=== PATIENT | male | born 1965 | race Caucasian/White ===

== ENCOUNTER 2017-07-27 20:35 | Emergency (ER) | payer MEDICAID, SELFPAY ==
[2017-07-27 20:36] VITALS: BP 158/78; PULSE 76; RESP 14; TEMP 36.2; O2SAT 97; BMI 41.6
--- NOTE | 2017-07-27 22:12 | EKG12_ITS ---
Test Reason : SOB Blood Pressure : / mmHG Vent. Rate : 066 BPM Atrial Rate : 066 BPM P-R Int : 148 ms QRS Dur : 150 ms QT Int : 436 ms P-R-T Axes : 034 055 049 degrees QTc Int : 457 ms Normal sinus rhythm Right bundle branch block Abnormal ECG Confirmed by DUSTIN DEE, BRIDGET ([id number]), proposal editor ELIZABETH TONY ([id number]) on 07/29/2017 2:05:36 PM Referred By: ALLEN LAY Confirmed By:BRIDGET CHAN MD
--- NOTE | 2017-07-27 22:15 | ED.DCSUM_ITS ---
- ER Visit Summary Date of Service: 07/27/17 Chief Complaint: Weakness, shortness of breath History of Present Illness: The patient is a 51 M with multiple comorbidities including COPD not oxygen dependent, [id number]-ezocepgmb diabetes, and coronary vascular disease cough, shortness of breath, generalized malaise. The patient states symptoms began on for the past 2 weeks. He states initially, he started with some diffuse paresthesias. States was worse in his hands and on his head. He thought it might be a reaction to his Cymbalta which he stopped. He states it did seem to get better, but over the past week he has had increasing malaise. States he feels like he cannot catch his breath and has been having significant coughing with productive sputum. He denies any chest pain, but does admit to dyspnea when he walks. He has had prior cardiac catheterization with stenting. He denies any history of prior DE though. Physical Examination: Vital signs reviewed General: Well-nourished, well-developed Head: Normocephalic, atraumatic Eyes: Pupils equal and reactive, extraocular muscles intact Neck, supple, no lymphadenopathy Heart: Regular rate and rhythm Respiratory: No distress, wheezing with finished sounds Abdomen: Soft, nontender, nondistended, no peritoneal signs Back: Nontender Extremities: Nontender, no edema, no cords Skin: Normal color no rash Neuro: Alert and oriented, no focal or lateralizing deficits Test Results: [] Emergency Department Course and Treatment: The patient did have wheezing in all ordonez. I do feel that primary cause of his symptoms is respiratory. His EKG is unchanged. He has negative cardiac enzymes. His chest x-ray shows COPD without focal infiltrate. The patient was given aerosol breathing treatments and steroids. On reevaluation, his aeration is markedly improved. He is resting comfortably. Labs are relatively unremarkable. As the patient has had increasing dyspnea, productive sputum, change in sputum, and shortness of breath I do feel that treating him with antibiotics would be appropriate. The patient be kept on a prednisone burst. He is started on doxycycline. The patient is able to ambulate without tachypnea. At this time, I do feel that he is safe for discharge. He is counseled on concerning symptoms and reasons to return. Treatment Plan: [] Disposition: Discharge Impression: 1. Acute COPD exacerbation 2. Generalized weakness This note was generated with Dragon dictation software. It may contain incorrect words, spelling, and punctuation that were not noted in review of the chart prior to signing ED Disposition - Plan for ED Patient: Disposition: Home or Assisted Living Chief Complaint: Shortness of Breath Instructions: ED Upper Resp Infec Abx Tx Prescriptions: Prednisone [Deltasone] 60 mg PO DAILY #15 tab Doxycycline Monohydrate 100 mg PO BID #20 cap Referrals: Lupe Hastings, [facility] ATTENDANT-C [NON-STAFF] -
[2017-07-27 22:35] VITALS: PULSE 72; RESP 18; O2SAT 94
[2017-07-27] MEDS: MethylPREDNISolone 125 MG/2 ML Vial IV (22:40)
[2017-07-27 22:43] VITALS: PULSE 75; RESP 16
[2017-07-27] MEDS: Albuterol 2.5 MG/3 ML VIAL.NEB. INHALATION ×2 (22:43→23:00)
[2017-07-27] MEDS: Ipratropium/Albuterol Sulfate 3 ML AMPUL.NEB INHALATION (22:43)
[2017-07-27 23:00] VITALS: PULSE 77; RESP 20
--- NOTE | 2017-07-27 23:10 | RAD_ITS ---
STUDY: X-RAY CHEST REASON FOR EXAM: Male, 51 years old. Short of breath TECHNIQUE: PA and lateral COMPARISON: March 18, 2016 FINDINGS: Lungs are hyperinflated but clear.. There is no demonstrated pleural abnormality. Normal size heart. Normal mediastinum and darren. Normal visualized pulmonary arteries. Normal visualized aortic arch and descending thoracic aorta. Normal visualized thoracic spine. Normal visualized ribs, clavicles, and shoulders. There is no demonstrated abnormality of the visualized soft tissue structures of the upper abdomen. No significant changes since prior exam RAD/Chest PA and Lateral IMPRESSION: COPD. No acute disease Electronically Signed: Coleman Shankar MD at 23:31 EST , Service support ,
[2017-07-27 23:12] LABS: Hematocrit 41.4 % (40-54); Hemoglobin 14.2 g/dl (13.0-16.5); Mean Corp Hgb Conc 34.3 g/gl (32-36); Mean Corpuscular Volume 96.3 fL (80-94); RBC Distribution Width CV 13.5 % (11.6-14.6); RBC Distribution Width SD 47.3 fl (35.1-43.9); White Blood Count 7.9 K/mm3 (4.4-11.0)
[2017-07-27 23:13] LABS: Absolute Neutrophil Count 4.3 X10^3/uL (2.0-7.7); Basophil% 0.1 % (0-1); Lymphocyte # 2.94 X10^3/ul (4.0); Lymphocyte % 37.2 % (19-41); Mean Platelet Vol. 11.3 fl (6.2-12.0); Monocyte% 6.2 % (0-10); Neutrophil # 4.28 X10^3/uL (2.7-7.7); Neutrophil % 54.2 % (47-70); POSITIVE COUNT NO; POSITIVE DIFFERENTIAL NO; POSITIVE MORPHOLOGY NO; Platelet Count 235 K/mm3 (150-450)
[2017-07-27 23:14] LABS: Absolute Lymphocyte Count 2.94 X10^3/ul (0.83-4.51); Basophil# 0.01 X10^3/uL; Eosinophil# 0.16 X10^3/uL; Monocyte# 0.49 X10^3/uL
[2017-07-27 23:45] LABS: BNP,B-Type NATRIURETIC PEPTIDE 3.5 pg/mL (0-100)
[2017-07-28 00:01] LABS: Anion Gap 9 (5-15); BUN 15 mg/dL (7-18); BUN/Creat Ratio 10.9 RATIO (10-20); Calcium,Total 9.2 mg/dL (8.5-10.1); Chloride 108 mmol/L (98-107); Creatinine, Serum 1.37 mg/dL (0.70-1.30); EST Glomerular Filtration Rate 58 mL/min (>60); Est Glom Filt Rate - Afr Amer 71 mL/min (>60); Estimated Creatinine Clearance 64.51 ml/min; Glucose 114 mg/dL (74-106); Potassium 3.7 mmol/L (3.5-5.1); Sodium Level 144 mmol/L (136-145)
[2017-07-28] MEDS: Doxycycline 100 MG CAPSULE PO (00:35)
[2017-07-28 00:38] VITALS: BP 101/83; PULSE 70; RESP 17; O2SAT 95
--- NOTE | 2017-07-28 00:39 | ED.RN ---
IV DC'ED, CATHETER INTACT, SMALL GAUZE DRESSING PLACED. DISCHARGE INSTRUCTIONS GIVEN TO AND REVIEWED WITH PATIENT, PATIENT DENIES QUESTIONS OR CONCERNS AND VOICES UNDERSTANDING OF DISCHARGE INSTRUCTIONS. PT AMBULATES OUT OF ROOM WITHOUT DIFFICULTY.
== END 2017-07-28 00:40 | disposition home or self-care (01) ==
LOC: ED 07-28 00:35
PROVIDERS: Emergency Provider Emergency Medicine
DX: J44.1 Chronic obstructive pulmonary disease with (acute) exacerbation (principal); M62.81 Muscle weakness (generalized); I25.10 Atherosclerotic heart disease of native coronary artery without angina pectoris; Z72.0 Tobacco use
CPT/HCPCS: 36415; 71046; 80048; 83880; 84484; 85025; 93005; 94640; 96361; 96374; 99285; J7030; J7040

== ENCOUNTER → 2017-07-29 14:37 | Outpatient (CLI) | payer MEDICAID, SELFPAY | PROVIDERS: Visit Provider Internal Medicine Critical Care Medicine | DX: J44.9 Chronic obstructive pulmonary disease, unspecified (principal) | CPT/HCPCS: 87804 ==

== ENCOUNTER → 2017-08-14 13:52 | Outpatient (CLI) | payer MEDICAID, SELFPAY ==
[2017-08-14 14:21] LABS: Anion Gap 5 (5-15); BUN 12 mg/dL (7-18); BUN/Creat Ratio 10.9 RATIO (10-20); Calcium,Total 9.4 mg/dL (8.5-10.1); Chloride 106 mmol/L (98-107); EST Glomerular Filtration Rate 75 mL/min (>60); Est Glom Filt Rate - Afr Amer 91 mL/min (>60); Glucose 138 mg/dL (74-106); Potassium 4.3 mmol/L (3.5-5.1); Sodium Level 141 mmol/L (136-145)
[2017-08-14 14:31] LABS: BNP,B-Type NATRIURETIC PEPTIDE 8.9 pg/mL (0-100)
== END ==
PROVIDERS: Visit Provider Nurse Practitioner Acute Care
DX: R06.09 Other forms of dyspnea (principal)
CPT/HCPCS: 36415; 80048; 83880

== ENCOUNTER → 2017-08-15 12:18 | Outpatient (CLI) | payer MEDICAID, SELFPAY | PROVIDERS: Visit Provider Nurse Practitioner Acute Care | DX: J44.9 Chronic obstructive pulmonary disease, unspecified (principal) | CPT/HCPCS: 87070; 87077; 87186; 87205 ==

== ENCOUNTER → 2017-11-10 13:08 | Outpatient (CLI) | payer MEDICAID, SELFPAY ==
--- NOTE | 2017-11-11 15:15 | PFTCOMP ---
COMPLETE PULMONARY FUNCTION TEST INTERPRETATION Brief HPI: Patient is a 51 year old male, currently under the care of Deanna Schneider, who presents to [facility] for complete pulmonary function tests secondary to diagnosis of COPD. Respiratory therapist reports good effort and reproducible results. Patient did report feeling not well on the day of testing. Interpretation: Forced expiration spirometry shows a severe large airways obstructive ventilatory defect with an FEV1 of 45% predicted. There is no significant bronchodilator response by ATS criteria. Spirograms are of good quality and plateau slowly, indicating slowly emptying areas of the lungs. The respiratory flow volume loop shows decreased expiratory flow rates at all lung volumes consistent with airway obstruction. Lung volumes by body plethysmography show a normal total lung capacity at 7.08 L, 97% predicted. FRC and RV are elevated out of proportion. Lung volume measurements are consistent with air-trapping. Diffusion capacity by carbon monoxide is decreased at 71% predicted. The airway resistance is elevated. Compared to previous pulmonary function tests from 04/20/2017, there has been a significant worsening in FEV1 and air trapping. Impression: Irreversible severe large airways obstructive ventilatory defect with significant worsening in FEV1 and air trapping compared to previous study.
--- NOTE | 2017-11-11 16:09 | PFTCOMP_ITS ---
COMPLETE PULMONARY FUNCTION TEST INTERPRETATION Brief HPI: Patient is a 51 year old male, currently under the care of Deanna Schneider, who presents to [facility] for complete pulmonary function tests secondary to diagnosis of COPD. Respiratory therapist reports good effort and reproducible results. Patient did report feeling not well on the day of testing. Interpretation: Forced expiration spirometry shows a severe large airways obstructive ventilatory defect with an FEV1 of 45% predicted. There is no significant bronchodilator response by ATS criteria. Spirograms are of good quality and plateau slowly, indicating slowly emptying areas of the lungs. The respiratory flow volume loop shows decreased expiratory flow rates at all lung volumes consistent with airway obstruction. Lung volumes by body plethysmography show a normal total lung capacity at 7.08 L , 97% predicted. FRC and RV are elevated out of proportion. Lung volume measurements are consistent with air-trapping. Diffusion capacity by carbon monoxide is decreased at 71% predicted. The airway resistance is elevated. Compared to previous pulmonary function tests from 04/20/2017, there has been a significant worsening in FEV1 and air trapping. Impression: Irreversible severe large airways obstructive ventilatory defect with significant worsening in FEV1 and air trapping compared to previous study.
== END ==
PROVIDERS: Visit Provider Nurse Practitioner Acute Care
DX: J44.9 Chronic obstructive pulmonary disease, unspecified (principal)
CPT/HCPCS: 94060; 94726; 94729

== ENCOUNTER → 2017-11-12 12:16 | Outpatient (CLI) | payer MEDICAID, SELFPAY ==
[2017-11-12 12:50] VITALS: PULSE 64; PULSE 68; PULSE 74; PULSE 90; PULSE 91; PULSE 98; PULSE 99; O2SAT 93; O2SAT 94; O2SAT 95; O2SAT 96
--- NOTE | 2017-11-13 05:48 | PCM.PSN.6M ---
PSN 6 Minute Walk Test - 6 Minute Walk Test 6 Minute Walk Test: 6 Minute Walk Test PSN:6-Minute Walk Test Start: 11/12/17 12:49 Freq: Status: Active Protocol: RESP.6MINW Document 11/12/17 12:50 [facility] (Rec: 11/12/17 12:54 [facility] [id number]) 6 Minute Walk Test Date Performed 11/12/17 Time Performed 12:30 Height 6 ft Weight: 111.131 kg Weight in Pounds 245.[address]: Deanna Schneider FIO2 (% Oxygen) 21 Assistive device used: None Pre-test Oxygen Delivery Method Room Air Pulse Ox (%) 96 Pulse Rate (60-100 beats/min) 64 Dyspnea Lucy Scale (0-10) 3 Reported Symptoms Increased Work of Breathing 1st minute Oxygen Delivery Method Room Air Pulse Ox (%) 94 Pulse Rate (60-100 beats/min) 74 Dyspnea Lucy Scale (0-10) 3 Reported Symptoms Increased Work of Breathing 2nd minute Oxygen Delivery Method Room Air Pulse Ox (%) 93 Pulse Rate (60-100 beats/min) 90 Dyspnea Lucy Scale (0-10) 4 Reported Symptoms Increased Work of Breathing 3rd minute Oxygen Delivery Method Room Air Pulse Ox (%) 94 Pulse Rate (60-100 beats/min) 99 Dyspnea Lucy Scale (0-10) 4 Reported Symptoms Increased Work of Breathing 4th minute Oxygen Delivery Method Room Air Pulse Ox (%) 94 Pulse Rate (60-100 beats/min) 98 Dyspnea Lucy Scale (0-10) 4 Reported Symptoms Increased Work of Breathing 5th minute Oxygen Delivery Method Room Air Pulse Ox (%) 93 Pulse Rate (60-100 beats/min) 98 Dyspnea Lucy Scale (0-10) 4 Reported Symptoms Increased Work of Breathing 6th minute Oxygen Delivery Method Room Air Pulse Ox (%) 94 Pulse Rate (60-100 beats/min) 91 Dyspnea Lucy Scale (0-10) 4 Reported Symptoms Increased Work of Breathing Post-test Oxygen Delivery Method Room Air Pulse Ox (%) 95 Pulse Rate (60-100 beats/min) 68 Dyspnea Lucy Scale (0-10) 3 Reported Symptoms Increased Work of Breathing Full Laps Walked 18 Partial Lap, Number of Tiles Walked 32 Total Distance Walked (ft) 1094 - Interpretation Interpretation: Patient was able to ambulate 1094 feet over the course of 6 minutes on room air with no assistive devices or breaks. The patient experienced no significant tachycardia or desaturation during testing. These findings are consistent with a musculoskeletal limitation exercise tolerance. - Recommendations Recommendations: No supplemental oxygen is indicated at this time.
== END ==
PROVIDERS: Visit Provider Nurse Practitioner Acute Care
DX: J44.9 Chronic obstructive pulmonary disease, unspecified (principal)
CPT/HCPCS: 94618

== ENCOUNTER → 2018-08-04 12:10 | Outpatient (CLI) | payer MEDICAID, SELFPAY ==
[2018-05-10 12:21] VITALS: BMI 41.9
== END ==
PROVIDERS: Referring Provider Internal Medicine Critical Care Medicine; Visit Provider Internal Medicine Critical Care Medicine
DX: J44.9 Chronic obstructive pulmonary disease, unspecified (principal)
CPT/HCPCS: 87632

== ENCOUNTER → 2018-08-05 12:10 | Outpatient (CLI) | payer MEDICAID, SELFPAY ==
[2018-05-10 12:21] VITALS: BMI 41.9
== END ==
PROVIDERS: Referring Provider Nurse Practitioner Acute Care; Visit Provider Nurse Practitioner Acute Care
DX: J44.9 Chronic obstructive pulmonary disease, unspecified (principal)
CPT/HCPCS: 87070; 87077; 87186; 87205

== ENCOUNTER → 2018-11-02 | Outpatient (CLI) | payer MEDICAID, SELFPAY ==
[2018-05-10 12:21] VITALS: BMI 41.9
--- NOTE | 2018-11-03 08:15 | PFT ---
INTRODUCTION: The patient is a 52-year-old male that presents for pulmonary function studies secondary to a diagnosis of COPD. Respiratory therapy reports good patient effort. Bronchodilators were used during testing. INTERPRETATION: Forced expiration spirometry demonstrates the presence of a severe large airways obstructive ventilatory defect. There was no significant response to aerosolized bronchodilators. Spirograms are of good quality and do not plateau indicating slow emptying of the lungs. Body plethysmography was performed and revealed an elevated RV to 128% of predicted, indicative of mild air trapping. Diffusing capacity by single breath CO is reduced at 61% of predicted. IMPRESSION: Irreversible severe large airways obstructive ventilatory defect with associated mild air trapping and reduction in diffusing capacity.
== END | disposition home or self-care (01) ==
LOC: PSN 12:15
PROVIDERS: Referring Provider Nurse Practitioner Acute Care; Visit Provider Nurse Practitioner Acute Care
DX: J44.9 Chronic obstructive pulmonary disease, unspecified (principal)
CPT/HCPCS: 94060; 94726; 94729

== ENCOUNTER → 2018-11-04 | Outpatient (CLI) | payer MEDICAID, SELFPAY ==
[2018-05-10 12:21] VITALS: BMI 41.9
[2018-11-04 12:45] VITALS: PULSE 77; PULSE 81; PULSE 94; PULSE 95; PULSE 96; O2SAT 92; O2SAT 93; O2SAT 94; O2SAT 95
--- NOTE | 2018-11-05 06:41 | PCM.PSN.6M ---
PSN 6 Minute Walk Test - 6 Minute Walk Test 6 Minute Walk Test: 6 Minute Walk Test PSN:6-Minute Walk Test Start: 11/04/18 12:45 Freq: Status: Active Protocol: RESP.6MINW Document 11/04/18 12:45 SMB (Rec: 11/04/18 12:48 SMB [id number]) 6 Minute Walk Test Date Performed 11/04/18 Time Performed 12:31 Height 6 ft Weight: 285 lb Weight in Pounds 285.[address]: Deanna Schneider Assistive device used: None Pre-test Oxygen Delivery Method Room Air Pulse Ox (%) 94 Pulse Rate (60-100 beats/min) 77 Dyspnea Lucy Scale (0-10) 2 Exertion Lucy Scale (6-20) 11 1st minute Oxygen Delivery Method Room Air Pulse Ox (%) 92 Pulse Rate (60-100 beats/min) 95 2nd minute Oxygen Delivery Method Room Air Pulse Ox (%) 93 Pulse Rate (60-100 beats/min) 96 3rd minute Oxygen Delivery Method Room Air Pulse Ox (%) 92 Pulse Rate (60-100 beats/min) 96 4th minute Oxygen Delivery Method Room Air Pulse Ox (%) 93 Pulse Rate (60-100 beats/min) 94 5th minute Oxygen Delivery Method Room Air Pulse Ox (%) 92 Pulse Rate (60-100 beats/min) 96 6th minute Oxygen Delivery Method Room Air Pulse Ox (%) 93 Pulse Rate (60-100 beats/min) 95 Post-test Oxygen Delivery Method Room Air Pulse Ox (%) 95 Pulse Rate (60-100 beats/min) 81 Dyspnea Lucy Scale (0-10) 3 Exertion Lucy Scale (6-20) 12 Full Laps Walked 19 Partial Lap, Number of Tiles Walked 6 Total Distance Walked (ft) 1127 - Interpretation Interpretation: The patient ambulated 1127 feet over the course of 6 minutes beginning on room air without assistive devices or breaks. Pretesting oxygen saturation was noted to be 94% on room air. With ambulation, the mariam oxygen saturation was 92%. There was no significant exertional oxygen desaturation. - Recommendations Recommendations: There is no indication for the use of supplemental oxygen at this time.
== END | disposition home or self-care (01) ==
LOC: PSN 12:04
PROVIDERS: Referring Provider Nurse Practitioner Acute Care; Visit Provider Nurse Practitioner Acute Care
DX: J44.9 Chronic obstructive pulmonary disease, unspecified (principal)
CPT/HCPCS: 94618

== ENCOUNTER → 2019-08-01 | Outpatient (CLI) | payer MEDICAID, SELFPAY ==
[2019-05-03 07:45] VITALS: BMI 38.6
--- NOTE | 2019-08-01 09:05 | US_ITS ---
STUDY: ABDOMINAL ULTRASOUND - RIGHT UPPER QUADRANT REASON FOR VISIT: Male, 53 years old UMBILICAL HERNIA - S/P PREVIOUS REPAIR TECHNIQUE: Ultrasound evaluation of the mid abdomen was performed with real-time and static salazar-scale imaging. TECHNICAL QUALITY: Adequate. COMPARISON: None. FINDINGS: There is evidence of a midline fat-containing hernia just superior to the umbilicus measuring 2.6 cm x 2.6 cm x 0.7 cm.. US/Abdomen Limited IMPRESSION: Findings suggestive of a midline fat containing hernia just superior to the umbilicus. Electronically Signed: Anton Felix, at 10:12 EST , Service support ,
== END | disposition home or self-care (01) ==
LOC: US 09:04
PROVIDERS: PCP Nurse Practitioner Family
DX: K45.8 Other specified abdominal hernia without obstruction or gangrene (principal)
CPT/HCPCS: 76705

== ENCOUNTER → 2019-08-02 | Outpatient (CLI) | payer MEDICAID, SELFPAY ==
[2019-05-03 07:45] VITALS: BMI 38.6
--- NOTE | 2019-08-02 15:35 | PFTCOMP ---
COMPLETE PULMONARY FUNCTION TEST INTERPRETATION Brief HPI: Patient is a 53 year old male, currently under the care of myself, who presents to [facility] for complete pulmonary function tests secondary to diagnosis of COPD. Respiratory therapist reports good effort and reproducible results. Interpretation: Forced expiration spirometry shows a moderately severe large airways obstructive ventilatory defect with an FEV1 of 51% predicted. There is no significant bronchodilator response by strict ATS criteria. Spirograms are of good quality and plateau slowly, indicating slowly emptying areas of the lungs. The respiratory flow volume loop shows decreased expiratory flow rates at all lung volumes consistent with airway obstruction. Lung volumes by body plethysmography show a normal total lung capacity at 6.55 L, 100% predicted. FRC and RV are elevated out of proportion. Lung volume measurements are consistent with air-trapping. Diffusion capacity by carbon monoxide is at the lower limit of normal at 76% predicted. The airway resistance is normal. Compared to previous pulmonary function tests from 11/02/2018, there is been a significant improvement in DLCO by 20%. Impression: Irreversible moderately severe large airways obstructive ventilatory defect resulting in air trapping, with some improvement compared to previous testing.
== END | disposition home or self-care (01) ==
LOC: PSN 13:01
PROVIDERS: Referring Provider Nurse Practitioner Acute Care; Visit Provider Nurse Practitioner Acute Care
DX: J44.9 Chronic obstructive pulmonary disease, unspecified (principal)
CPT/HCPCS: 94060; 94726; 94729

== ENCOUNTER → 2019-08-04 | Outpatient (CLI) | payer MEDICAID, SELFPAY ==
[2019-05-03 07:45] VITALS: BMI 38.6
[2019-08-04 12:42] VITALS: PULSE 83; PULSE 91; PULSE 93; PULSE 94; PULSE 95; PULSE 97; O2SAT 91; O2SAT 92; O2SAT 93; O2SAT 94
--- NOTE | 2019-08-04 15:31 | PCM.PSN.6M ---
PSN 6 Minute Walk Test - 6 Minute Walk Test 6 Minute Walk Test: 6 Minute Walk Test PSN:6-Minute Walk Test Start: 08/04/19 12:41 Freq: Status: Active Protocol: RESP.6MINW Document 08/04/19 12:42 SMB (Rec: 08/04/19 12:45 SMB [id number]) 6 Minute Walk Test Date Performed 08/04/19 Time Performed 12:26 Height 5 ft 10 in Weight: 130.181 kg Weight in Pounds 287.[address]: Deanna Schneider Assistive device used: None Pre-test Oxygen Delivery Method Room Air Pulse Ox (%) 94 Pulse Rate (60-100 beats/min) 97 Dyspnea Lucy Scale (0-10) 0.5 Exertion Lucy Scale (6-20) 11 1st minute Oxygen Delivery Method Room Air Pulse Ox (%) 91 Pulse Rate (60-100 beats/min) 91 2nd minute Oxygen Delivery Method Room Air Pulse Ox (%) 92 Pulse Rate (60-100 beats/min) 95 3rd minute Oxygen Delivery Method Room Air Pulse Ox (%) 92 Pulse Rate (60-100 beats/min) 97 4th minute Oxygen Delivery Method Room Air Pulse Ox (%) 91 Pulse Rate (60-100 beats/min) 94 5th minute Oxygen Delivery Method Room Air Pulse Ox (%) 92 Pulse Rate (60-100 beats/min) 93 6th minute Oxygen Delivery Method Room Air Pulse Ox (%) 93 Pulse Rate (60-100 beats/min) 97 Post-test Oxygen Delivery Method Room Air Pulse Ox (%) 94 Pulse Rate (60-100 beats/min) 83 Dyspnea Lucy Scale (0-10) 3 Exertion Lucy Scale (6-20) 14 Full Laps Walked 18 Partial Lap, Number of Tiles Walked 11 Total Distance Walked (ft) 1073 - Interpretation Interpretation: The patient was able to ambulate 1073 feet over the course of 6 minutes on room air with no assistive devices or breaks. The patient did experience significant desaturation from a baseline of 94% to as low as 91% with no significant tachycardia. These findings are consistent with a respiratory limitation to exercise tolerance. - Recommendations Recommendations: No supplemental oxygen is indicated at this time. However, patient will need to be followed closely given level of desaturation.
== END | disposition home or self-care (01) ==
LOC: PSN 12:05
PROVIDERS: Referring Provider Nurse Practitioner Acute Care; Visit Provider Nurse Practitioner Acute Care
DX: J44.9 Chronic obstructive pulmonary disease, unspecified (principal)
CPT/HCPCS: 94618

== ENCOUNTER → 2020-02-22 12:10 | Outpatient (CLI) | payer MEDICAID, SELFPAY ==
[2019-08-11 12:58] VITALS: BMI 41.3
[2020-02-22 13:23] LABS: Absolute Lymphocyte Count 2.26 X10^3/uL (0.83-4.51); Absolute Neutrophil Count 3.3 X10^3/uL (2.0-7.7); Basophil# 0.03 X10^3/uL; Basophil% 0.5 % (0-1); Eosinophil# 0.12 X10^3/uL; Eosinophils% 1.9 % (0-5); Hematocrit 43.1 % (40-54); Hemoglobin 14.6 g/dL (13.0-16.5); Lymphocyte # 2.26 X10^3/ul (4.0); Lymphocyte % 36.2 % (19-41); Mean Corp Hgb Conc 33.9 g/dL (32-36); Mean Corpuscular Hgb 33.4 pg (27.0-32.0); Mean Corpuscular Volume 98.6 fL (80-94); Mean Platelet Vol. 10.7 fl (6.2-12.0); NRBC Flagged by Analyzer 0 % (0-5); Neutrophil # 3.31 X10^3/uL (2.7-7.7); Neutrophil % 53.1 % (47-70); Platelet Count 220 K/mm3 (150-450); RBC Distribution Width CV 12.8 % (11.6-14.6); RBC Distribution Width SD 46.2 fl (35.1-43.9); Red Blood Count 4.37 M/mm3 (4.6-6.2); White Blood Count 6.2 K/mm3 (4.4-11.0)
[2020-02-22 13:52] LABS: Vitamin D,25 Hydroxy 73.9 ng/mL
[2020-02-22 14:03] LABS: ALB/GLOB Ratio 1.1 RATIO (0.9-2.4); AST(SGOT) 34 U/L (15-37); Alanine Aminotransfer ALT/SGPT 56 U/L (16-61); Albumin, Serum 3.8 g/dL (3.2-5.0); Alkaline Phosphatase 107 U/L (45-117); Anion Gap 6 (5-15); BUN 12 mg/dL (7-18); BUN/Creat Ratio 14.6 RATIO (10-20); Chloride 105 mmol/L (98-107); Cholesterol 147 mg/dL (200); Creatinine, Serum 0.82 mg/dL (0.70-1.30); EST Glomerular Filtration Rate 104 mL/min (>60); Est Glom Filt Rate - Afr Amer 126 mL/min (>60); Globulin 3.5 g/dL (2.2-4.2); Glucose 107 mg/dL (74-106); High Density Lipoprotein 33 mg/dL; Potassium 3.8 mmol/L (3.5-5.1); Protein, Total 7.3 g/dL (6.4-8.2); Sodium Level 138 mmol/L (136-145); T4 Free Direct 1.08 ng/dL (0.76-1.46); Thyroid Stim Hormone (TSH) 1.38 uIU/mL (0.358-3.74); Triglycerides 257 mg/dL; Very Low Density Lipoprotein 51 mg/dL (5-40)
== END ==
DX: K21.9 Gastro-esophageal reflux disease without esophagitis (principal); E11.65 Type 2 diabetes mellitus with hyperglycemia; E78.5 Hyperlipidemia, unspecified; E03.9 Hypothyroidism, unspecified; E55.9 Vitamin D deficiency, unspecified
CPT/HCPCS: 36415; 80053; 80061; 82306; 83036; 84439; 84443; 85025

== ENCOUNTER → 2020-09-27 12:40 | Outpatient (CLI) | payer MEDICAID, SELFPAY ==
[2019-08-11 12:58] VITALS: BMI 41.3
--- NOTE | 2020-09-27 16:55 | PFTCOMP ---
COMPLETE PULMONARY FUNCTION TEST INTERPRETATION Brief HPI: Patient is a 54 year old male, currently under the care of Deanna Schneider, who presents to [facility] for complete pulmonary function tests secondary to diagnosis of COPD. Respiratory therapist reports good effort and reproducible results. Interpretation: Forced expiration spirometry shows a moderately severe large airways obstructive ventilatory defect with an FEV1 of 51% predicted. There is no significant bronchodilator response by strict ATS criteria. Spirograms are of good quality and plateau slowly, indicating slowly emptying areas of the lungs. The respiratory flow volume loop shows decreased expiratory flow rates at all lung volumes consistent with airway obstruction. Lung volumes by body plethysmography show a normal total lung capacity at 6.97 L, 107% predicted. FRC and RV are elevated out of proportion. Lung volume measurements are consistent with air-trapping. Diffusion capacity by carbon monoxide is at the lower limit of normal at 75% predicted. The airway resistance is normal. Compared to previous pulmonary function tests from 08/02/2019, there has been no significant change. Impression: Irreversible moderately severe large airways obstructive ventilatory defect with relatively preserved diffusion capacity, resulting in air trapping, but no significant change compared to 2019.
== END ==
PROVIDERS: Referring Provider Nurse Practitioner Acute Care; Visit Provider Nurse Practitioner Acute Care
DX: J44.9 Chronic obstructive pulmonary disease, unspecified (principal)
CPT/HCPCS: 94060; 94726; 94729

== ENCOUNTER → 2020-10-02 12:43 | Outpatient (CLI) | payer MEDICAID, SELFPAY ==
[2019-08-11 12:58] VITALS: BMI 41.3
[2020-10-02 13:15] VITALS: PULSE 101; PULSE 106; PULSE 74; PULSE 88; PULSE 89; PULSE 93; PULSE 97; O2SAT 91; O2SAT 92; O2SAT 93; O2SAT 94
--- NOTE | 2020-10-04 09:42 | PCM.PSN.6M ---
PSN 6 Minute Walk Test 6 Minute Walk Test 6 Minute Walk Test: 6 Minute Walk Test PSN:6-Minute Walk Test Start: 10/02/20 13:41 Freq: Status: Active Protocol: RESP.6MINW Document 10/02/20 13:15 EW (Rec: 10/02/20 13:49 EW [id number]) 6 Minute Walk Test Date Performed 10/02/20 Time Performed 13:40 Height 5 ft 9 in Weight: 275 lb Weight in Pounds 275.[address]: Deanna Schneider SERVICE DELIVERY CONSULTANT Assistive device used: None Pre-test Oxygen Delivery Method Room Air Pulse Ox (%) 94 Pulse Rate (60-100 beats/min) 74 Dyspnea Lucy Scale (0-10) 3 Exertion Lucy Scale (6-20) 11 1st minute Oxygen Delivery Method Room Air Pulse Ox (%) 92 Pulse Rate (60-100 beats/min) 89 2nd minute Oxygen Delivery Method Room Air Pulse Ox (%) 91 Pulse Rate (60-100 beats/min) 106 H 3rd minute Oxygen Delivery Method Room Air Pulse Ox (%) 91 Pulse Rate (60-100 beats/min) 89 4th minute Oxygen Delivery Method Room Air Pulse Ox (%) 91 Pulse Rate (60-100 beats/min) 97 5th minute Oxygen Delivery Method Room Air Pulse Ox (%) 91 Pulse Rate (60-100 beats/min) 101 H 6th minute Oxygen Delivery Method Room Air Pulse Ox (%) 92 Pulse Rate (60-100 beats/min) 93 Post-test Oxygen Delivery Method Room Air Pulse Ox (%) 93 Pulse Rate (60-100 beats/min) 88 Dyspnea Lucy Scale (0-10) 3 Exertion Lucy Scale (6-20) 14 Full Laps Walked 16 Partial Lap, Number of Tiles Walked 0 Total Distance Walked (ft) 944 Interpretation Interpretation: The patient ambulated 944 feet over the course of 6 minutes beginning on room air without assistive devices or breaks. Pretesting oxygen saturation was noted to be 94% on room air. With ambulation, the mariam oxygen saturation was 91%. There was no significant exertional oxygen desaturation. Recommendations Recommendations: There is no indication for the use of supplemental oxygen at this time.
== END ==
PROVIDERS: Referring Provider Nurse Practitioner Acute Care; Visit Provider Nurse Practitioner Acute Care
DX: J44.9 Chronic obstructive pulmonary disease, unspecified (principal)
CPT/HCPCS: 94618

== ENCOUNTER → 2020-12-24 12:04 | Outpatient (CLI) | payer MEDICAID, SELFPAY ==
[2020-11-29 13:40] VITALS: BMI 40.2
[2020-12-24 12:40] LABS: Absolute Lymphocyte Count 1.95 X10^3/uL (0.83-4.51); Absolute Neutrophil Count 3.7 X10^3/uL (2.0-7.7); Basophil# 0.02 X10^3/uL; Basophil% 0.3 % (0-1); Eosinophils% 1.6 % (0-5); Hematocrit 46.3 % (40-54); Hemoglobin 16.1 g/dL (13.0-16.5); Lymphocyte # 1.95 X10^3/ul (0.83-4.51); Lymphocyte % 31.1 % (19-41); Mean Corp Hgb Conc 34.8 g/dL (32-36); Mean Corpuscular Hgb 33.4 pg (27.0-32.0); Mean Corpuscular Volume 96.1 fL (80-94); Mean Platelet Vol. 10.7 fl (6.2-12.0); NRBC Flagged by Analyzer 0 % (0-5); Neutrophil # 3.68 X10^3/uL (2.7-7.7); Neutrophil % 58.7 % (47-70); Platelet Count 208 K/mm3 (150-450); RBC Distribution Width CV 12.9 % (11.6-14.6); RBC Distribution Width SD 46.2 fl (35.1-43.9); Red Blood Count 4.82 M/mm3 (4.6-6.2); White Blood Count 6.3 K/mm3 (4.4-11.0)
[2020-12-24 13:12] LABS: Vitamin D,25 Hydroxy 65.2 ng/mL
[2020-12-24 13:23] LABS: AST(SGOT) 35 U/L (15-37); Alanine Aminotransfer ALT/SGPT 55 U/L (16-61); Albumin, Serum 3.8 g/dL (3.2-5.0); Alkaline Phosphatase 107 U/L (45-117); Anion Gap 7 (5-15); BUN 12 mg/dL (7-18); BUN/Creat Ratio 13.2 RATIO (10-20); Calcium,Total 8.5 mg/dL (8.5-10.1); Chloride 105 mmol/L (98-107); Cholesterol 156 mg/dL (200); Creatinine, Serum 0.91 mg/dL (0.70-1.30); EST Glomerular Filtration Rate 92 mL/min (>60); Est Glom Filt Rate - Afr Amer 112 mL/min (>60); Globulin 3.8 g/dL (2.2-4.2); Glucose 126 mg/dL (74-106); High Density Lipoprotein 35 mg/dL; PSA,Total - Annual Screen 0.31 ng/mL (0.00-4.00); Potassium 3.8 mmol/L (3.5-5.1); Protein, Total 7.6 g/dL (6.4-8.2); Sodium Level 137 mmol/L (136-145); Thyroid Stim Hormone (TSH) 2.58 uIU/mL (0.358-3.74); Triglycerides 277 mg/dL; Very Low Density Lipoprotein 55 mg/dL (5-40)
[2020-12-24 13:25] LABS: Microalbumin,Random Urine 7.8 mg/L (NO RANGE EST.)
== END ==
PROVIDERS: Internal Medicine Cardiovascular Disease; PCP Nurse Practitioner Adult Health; Referring Provider Nurse Practitioner Adult Health; Visit Provider Nurse Practitioner Adult Health
DX: E11.65 Type 2 diabetes mellitus with hyperglycemia (principal); E03.9 Hypothyroidism, unspecified; E78.5 Hyperlipidemia, unspecified; E78.00 Pure hypercholesterolemia, unspecified; I10 Essential (primary) hypertension; I25.10 Atherosclerotic heart disease of native coronary artery without angina pectoris; R06.09 Other forms of dyspnea; R07.2 Precordial pain; Z95.5 Presence of coronary angioplasty implant and graft; Z12.5 Encounter for screening for malignant neoplasm of prostate; Z12.11 Encounter for screening for malignant neoplasm of colon
CPT/HCPCS: 80053; 80061; 82043; 82306; 84153; 84443; 85025; G0103

== ENCOUNTER → 2021-03-29 07:18 | Outpatient (CLI) | payer MEDICAID, SELFPAY ==
[2021-03-29 08:24] LABS: Cholesterol 187 mg/dL (200); High Density Lipoprotein 30 mg/dL; Triglycerides 464 mg/dL
== END ==
DX: E78.5 Hyperlipidemia, unspecified (principal)
CPT/HCPCS: 36415; 80061

== ENCOUNTER → 2021-04-01 | Outpatient (CLI) | payer MEDICAID, SELFPAY | END | disposition home or self-care (01) | LOC: LABSPEC 12:43 | PROVIDERS: Referring Provider Nurse Practitioner Adult Health; Visit Provider Nurse Practitioner Adult Health | DX: Z12.11 Encounter for screening for malignant neoplasm of colon (principal) | CPT/HCPCS: 82274 ==

== ENCOUNTER 2021-07-16 07:08 | Outpatient (CLI) | payer MEDICAID, SELFPAY ==
[2021-07-16 07:32] LABS: Absolute Lymphocyte Count 2.15 X10^3/uL (0.83-4.51); Absolute Neutrophil Count 3.5 X10^3/uL (2.0-7.7); Basophil# 0.03 X10^3/uL; Basophil% 0.5 % (0-1); Eosinophils% 1.6 % (0-5); Hematocrit 47.8 % (40-54); Hemoglobin 16.3 g/dL (13.0-16.5); Lymphocyte # 2.15 X10^3/ul (0.83-4.51); Lymphocyte % 33.9 % (19-41); Mean Corp Hgb Conc 34.1 g/dL (32-36); Mean Corpuscular Hgb 32.9 pg (27.0-32.0); Mean Corpuscular Volume 96.6 fL (80-94); Mean Platelet Vol. 10.6 fl (6.2-12.0); Monocyte# 0.51 X10^3/uL; NRBC Flagged by Analyzer 0 % (0-5); Neutrophil # 3.54 X10^3/uL (2.7-7.7); Neutrophil % 55.7 % (47-70); Platelet Count 203 K/mm3 (150-450); RBC Distribution Width SD 46.2 fl (35.1-43.9); Red Blood Count 4.95 M/mm3 (4.6-6.2); White Blood Count 6.4 K/mm3 (4.4-11.0)
[2021-07-16 08:03] LABS: ALB/GLOB Ratio 0.9 RATIO (0.9-2.4); AST(SGOT) 32 U/L (15-37); Alanine Aminotransfer ALT/SGPT 50 U/L (16-61); Albumin, Serum 3.6 g/dL (3.2-5.0); Alkaline Phosphatase 110 U/L (45-117); Anion Gap 7 (5-15); BUN 10 mg/dL (7-18); BUN/Creat Ratio 10.3 RATIO (10-20); Bilirubin, Direct 0.11 mg/dL (0.00-0.30); Calcium,Total 8.9 mg/dL (8.5-10.1); Chloride 104 mmol/L (98-107); Cholesterol 146 mg/dL (200); Creatinine, Serum 0.98 mg/dL (0.70-1.30); EST Glomerular Filtration Rate 85 mL/min (>60); Est Glom Filt Rate - Afr Amer 103 mL/min (>60); Globulin 3.8 g/dL (2.2-4.2); Glucose 142 mg/dL (74-106); High Density Lipoprotein 31 mg/dL; Potassium 3.8 mmol/L (3.5-5.1); Protein, Total 7.4 g/dL (6.4-8.2); Sodium Level 139 mmol/L (136-145); Thyroid Stim Hormone (TSH) 1.78 uIU/mL (0.358-3.74); Triglycerides 330 mg/dL; Very Low Density Lipoprotein 66 mg/dL (5-40)
[2021-07-16 08:25] LABS: BNP,B-Type NATRIURETIC PEPTIDE 6.8 pg/mL (0-100)
== END 2021-07-16 23:59 | disposition home or self-care (01) ==
LOC: LAB 07:11
PROVIDERS: Internal Medicine Cardiovascular Disease; Referring Provider Nurse Practitioner Adult Health; Visit Provider Nurse Practitioner Adult Health
DX: R06.02 Shortness of breath (principal); E78.5 Hyperlipidemia, unspecified
CPT/HCPCS: 36415; 80053; 80061; 82248; 83880; 84443; 85025

== ENCOUNTER → 2021-10-02 | Outpatient (CLI) | payer MEDICAID, SELFPAY ==
--- NOTE | 2021-10-02 08:20 | RAD_ITS ---
STUDY: X-RAY - LEFT KNEE REASON FOR EXAM: Male, 55 years old. PAIN TECHNIQUE: 4 view(s) of the knee. COMPARISON: None. FINDINGS: Normal visualized distal femur. Normal visualized proximal tibia and fibula. Normal proximal tibiofibular articulation. Normal medial femorotibial compartment. Normal lateral femorotibial compartment. Normal patellofemoral articulation. There is a moderate-sized degenerative osteophyte at the lateral margin of the articular surface of the patella. The soft tissue structures are unremarkable. RAD/Knee 4 or More Views IMPRESSION: No evidence of acute fracture. Degenerative change of the knee. Electronically Signed: Beto Schneider MD at 23:51 EDT ,
--- NOTE | 2021-10-02 08:30 | RAD_ITS ---
STUDY: XR Knee Complete 4 Views or More 10/02/2021 5:07 PM REASON FOR EXAM: Male, 55 years old. PAIN IN KNEE TECHNIQUE: XR Knee Complete 4 Views or More RIGHT COMPARISON: None FINDINGS: Normal visualized distal femur. Normal visualized proximal tibia and fibula. Normal proximal tibiofibular articulation. Normal medial femorotibial compartment. Normal lateral femorotibial compartment. There is mild degenerative arthrosis of the patellofemoral articulation. There is a soft tissue prominence in the suprapatellar region suggesting a small volume joint effusion. Suprapatellar calcification. The soft tissue structures are unremarkable. 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 There is a soft tissue prominence in the suprapatellar region suggesting a small volume joint effusion. Electronically Signed: Zion Hammond MD at 17:09 EDT ,
[2021-10-02 08:46] LABS: AST(SGOT) 35 U/L (15-37); Alanine Aminotransfer ALT/SGPT 56 U/L (16-61); Albumin, Serum 3.6 g/dL (3.2-5.0); Alkaline Phosphatase 113 U/L (45-117); Bilirubin, Direct 0.16 mg/dL (0.00-0.30); Cholesterol 145 mg/dL (200); Globulin 3.7 g/dL (2.2-4.2); High Density Lipoprotein 34 mg/dL; Lipase 248 U/L (73-393); Protein, Total 7.3 g/dL (6.4-8.2); Triglycerides 320 mg/dL; Very Low Density Lipoprotein 64 mg/dL (5-40)
== END | disposition home or self-care (01) ==
PROVIDERS: Internal Medicine Cardiovascular Disease; Referring Provider Nurse Practitioner Adult Health; Visit Provider Nurse Practitioner Adult Health
DX: E11.42 Type 2 diabetes mellitus with diabetic polyneuropathy (principal); R10.32 Left lower quadrant pain; R10.31 Right lower quadrant pain; Z12.5 Encounter for screening for malignant neoplasm of prostate; M25.561 Pain in right knee
CPT/HCPCS: 36415; 73564; 80061; 80076; 83690

== ENCOUNTER 2022-02-03 12:27 | Emergency (ER) | payer MEDICAID, SELFPAY ==
[2022-02-03 12:28] VITALS: BP 146/88; PULSE 76; RESP 15; TEMP 36.4; O2SAT 98; BMI 41.0
[2022-02-03 12:41] VITALS: BP 146/88; PULSE 76; RESP 15; TEMP 36.4; O2SAT 98
--- NOTE | 2022-02-03 12:52 | VDLE_ITS ---
Reason For Study: Pain RIGHT GSV is normal. CFV is compressible, spontaneous, phasic, competent and demonstrates normal augmentation. FV is compressible, spontaneous, phasic, competent and demonstrates normal augmentation. POP V is compressible, spontaneous, phasic, competent and demonstrates normal augmentation. T/P Trunk is compressible. PTV is compressible. RT PerV is compressible. Procedure This is a venous duplex using B-mode, color flow and spectral Doppler. Exam performed portable in ED. A preliminary report was called and/or faxed to Dr. Lance. VL/Venous Duplex US, Unilateral Interpretation Summary There is no evidence of right lower extremity deep vein thrombosis. Right great saphenous vein appears patent and compressible segmentally. Ordering Physician: Aidan Lance Referring Physician: [facility] Performed By: Dorcas Pino, TEGAN, RVT
--- NOTE | 2022-02-03 12:52 | EKG12_ITS ---
Test Reason : CHEST TIGHTNESS Blood Pressure : / mmHG Vent. Rate : 067 BPM Atrial Rate : 067 BPM P-R Int : 178 ms QRS Dur : 150 ms QT Int : 420 ms P-R-T Axes : 069 049 047 degrees QTc Int : 443 ms Normal sinus rhythm Right bundle branch block Abnormal ECG Confirmed by DUSTIN DEE, BRIDGET ([id number]), news video editor NIKI DE LA O ([id number]) on 02/04/2022 9:47:35 AM Referred By: MARY Confirmed By:BRIDGET CHAN MD
--- NOTE | 2022-02-03 12:54 | EDS_ITS ---
HPI History of Present Illness Chief Complaint: Cellulitis Informant: patient Onset/Context/Timing Onset: Days (2) Context: - (awoke w/ sx) Timing: Continuous Quality: painful/sore Location: R lower leg Current Severity: Moderate Maximum Severity: Moderate Worsened by: palpation Relieved by: leaving alone Associated Symptoms Associated Symptoms: left chest tightness Narrative Narrative: Patient woke up with pain and swelling, redness right lower leg 2 days ago has been there ever since and has not spread. Not pruritic. He states he has had some mild nonpleuritic left chest tightness ever since this is well. He has had no more dyspnea than usual, he has COPD, chronically has a mild cough that is no worse, chronically wheezes and does not use albuterol unless he really is worse which he has not been lately. No history of DVT or PE, he takes no anticoagulants. Denies any long travel recently, has not traveled out of the area at all, or had any surgery or hospitalization or other immobilization recently. No fevers or chills. No history of cellulitis in his leg before. [facility] Medical History Atherosclerosis of coronary artery of [place] heart without angina pectoris Bilateral knee pain Body mass index (BMI) 35 or more Chest pain, unspecified COPD (chronic obstructive pulmonary disease) Difficulty swallowing MASON (dyspnea on exertion) Essential hypertension Gastroesophageal reflux disease Hyperlipidemia Hypertriglyceridemia Localized edema Long-term use of high-risk medication Morbid obesity due to excess calories Obstructive sleep apnea Patellofemoral arthritis of right knee Pneumonia due to other streptococci Right bundle-branch block Sinus drainage Situational syncope Stage 2 moderate COPD by GOLD classification Tobacco abuse Type 2 diabetes mellitus Home Medications albuterol sulfate 90 mcg/actuation aerosol inhaler 6.7 g IH PRN PRN Wheezing 12/06/14 [History Last Taken Unknown] ergocalciferol (vitamin D2) 1,250 mcg (50,000 unit) capsule 50,000 unit PO Q7D 12/06/14 [History Last Taken Unknown] omeprazole 40 mg capsule,delayed release 40 mg PO DAILY 12/06/14 [History Last Taken Unknown] fluticasone propionate 50 mcg/actuation nasal spray,suspension 1 spray NASAL DAILY 05/05/16 [History Last Taken Unknown] simvastatin 40 mg tablet 40 mg PO QPM 07/30/17 [History Last Taken Unknown] aspirin 81 mg tablet,delayed release 81 mg PO DAILY 08/11/19 [History Last Taken Unknown] duloxetine 60 mg capsule,delayed release 60 mg PO DAILY 08/11/19 [History Last Taken Unknown] levothyroxine 50 mcg tablet 75 mcg PO DAILY 08/11/19 [History Last Taken Unkno wn] losartan 50 mg tablet 25 mg PO QDAY 08/11/19 [History Last Taken Unknown] mirtazapine 15 mg tablet 45 mg PO QHS 08/11/19 [History Last Taken Unknown] multivitamin 1 cap PO DAILY 08/11/19 [History Last Taken Unknown] nitroglycerin 0.4 mg sublingual tablet (Nitrostat) 0.4 mg sublingual ONCE 08/11/19 [History Last Taken Unknown] budesonide-formoterol HFA 160 mcg-4.5 mcg/actuation aerosol inhaler 2 puff inhalation BID #10.2 grams 12/05/19 [Rx Last Taken Unknown] clopidogrel 75 mg tablet 75 mg PO QDAY #90 tabs 12/29/19 [Rx Last Taken Unknown] furosemide 40 mg tablet (Lasix) 60 mg PO DAILY 11/15/20 [History Last Taken Unknown] gabapentin 400 mg capsule 400 mg PO TID 11/15/20 [History Last Taken Unknown] metformin 1,000 mg tablet 1,000 mg PO BID 11/15/20 [History Last Taken Unknown] tiotropium bromide 2.5 mcg/actuation mist for inhalation (Spiriva Respimat) 2 puff inhalation DAILY #4 grams 06/10/21 [Rx Last Taken Unknown] isosorbide mononitrate 60 mg tablet,extended release 24 hr 30 mg PO BID #90 tabs 12/03/21 [Rx Last Taken Unknown] cephalexin 500 mg capsule 500 mg PO Q6 #40 CAPSULES 02/03/22 [Rx Last Taken Unknown] Allergy/AdvReac Type Severity Reaction Status Date / Time No Known Allergies Allergy Verified 10/07/21 08:22 Family History Father CVA (cerebral vascular accident) Brother CAD (coronary artery disease) Diabetes Mother COPD (chronic obstructive pulmonary disease) Sarcoidosis Surgical History H/O umbilical hernia repair History of carpal tunnel surgery of right wrist History of coronary artery stent placement (~03/25/16) History of left heart catheterization S/P laparoscopic cholecystectomy Social History Smoking Status: Current every day smoker tobacco type: cigarettes second hand exposure: Yes alcohol intake: never substance use type: does not use caffeine: Yes Type: coffee Number of servings: 2 what type of physical activity do you participate in: none ROS ROS ED Constitutional Constitutional ED: Denies chills or fever(s) Eyes Eyes: Denies change in vision or diplopia ENT ENT ED: Denies rhinorrhea or sore throat Cardiovascular Cardiovascular: Reports chest pain; Denies palpitations Respiratory/Chest Respiratory/Chest: Reports as per HPI, cough, dyspnea and wheezing Gastrointestinal Gastrointestinal: Denies abdominal pain, diarrhea, nausea or vomiting Genitourinary Genitourinary ED: Denies dysuria or hematuria Musculoskeletal Musculoskeletal: Reports extremity pain; Denies back pain or neck pain Integumentary Reports as per HPI and rash; Denies abscess Neurologic Neurologic: Denies headache(s), paresthesias or weakness Psychiatric Psychiatric: Denies anxiety or suicidal thoughts EXAM Physical Exam Const Vital Signs: 02/03/22 12:28 02/03/22 12:41 02/03/22 13:07 Temperature 97.5 F L 97.5 F L Temperature Source Temporal Temporal Pulse Rate 76 76 62 Respiratory Rate 15 15 18 Blood Pressure 146/88 H 146/88 H Blood Pressure Mean 107 107 Pulse Ox 98 98 Oxygen Delivery Method Room Air Room Air 02/03/22 13:58 Temperature Temperature Source Pulse Rate 61 Respiratory Rate 15 Blood Pressure 131/75 H Blood Pressure Mean 93 Pulse Ox 93 Oxygen Delivery Method Room Air Positive well nourished, well developed and obese General Appearance ED: well developed and NAD Nutritional Appearance: obese HEENT Reports moist mucous membranes normocephalic and atraumatic Eyes PERRL and EOMs intact bilaterally Neck full ROM and supple Resp normal respiratory effort, no retractions and no use of accessory muscles Resp Narrative: Diffuse end expiratory wheezes, otherwise clear Effort and Inspection: able to speak in complete sentences Cardio regular rate, regular rhythm and no murmurs Rate: Negative for tachycardic GI non-tender and non-distended Auscultation: normoactive bowel sounds Palpation: soft Back/Spine no CVA tenderness General Back: other FROM Extremity Extremity Narrative: Mildly warmer than the other leg, with erythema and localized swelling throughout the right lower leg. Does not involve the ankle or the knee but pretty much the area in between. Some involvement posteriorly but for the most part calf is unaffected and nontender. The erythema does not aisha. It does not appear ecchymotic, there are no satellite petechia present. 2+/4 dorsalis pedis pulse. Foot and thigh are unaffected no palpable cords. Left lower extremity is normal-appearing. General Extremety ED: Yes edema and tenderness; Negative for pulses abnormal General Extremity: edema right lower extremity moderate; Negative for pulses abnormal Neuro oriented x3, CN's II-XII intact bilaterally and no sensory deficits noted Sensorium / Orientation: awake and alert Motor Exam: strength 5/5 throughout Skin no rashes or lesions noted and no wounds MDM MDM MDM Narrative Medical decision making narrative: Differential here includes cellulitis due to chronic edema which she has, thrombocytopenia causing purpura, deep venous thrombosis. Ultrasound is negative for clots, his platelets are 141,000, he has not anticoagulated nor does he have a history of liver disease. He otherwise has unremarkable labs, his D-dimer was negative so I do not need to scan his chest in order to rule out pulmonary embolus. Furthermore his cardiac work-up is normal/negative with an unchanged right bundle branch block and a negative troponin after having discomfort for 2 days constant. Given all this he is stable for discharge home and I am going to treat him empirically for cellulitis, there are components of this that aisha with palpation, but at the densest areas in the center it does not aisha, hence the work-up. Discussed with him and his family they are comfortable with that overall plan he is getting a dose of vancomycin prior to discharge. We discussed reasons to return and they are okay with that. Lab Data Attestation: I reviewed the patient's lab results. Labs: Laboratory Results - last 24 hr 02/03/22 02/03/22 02/03/22 13:03 13:03 13:03 WBC 5.5 RBC 5.04 Hgb 16.9 H Hct 48.6 MCV 96.4 H MCH 33.5 H MCHC 34.8 RDW Std Deviation 47.3 H RDW Coeff of Autumn 13.2 Plt Count 141 L MPV 10.4 D-Dimer Quant (PE/DVT) 0.41 Sodium 138 Potassium 4.1 Chloride 103 Carbon Dioxide 27.0 Anion Gap 8 BUN 13 Creatinine 0.91 Estim Creat Clear Calc 91.72 Est GFR (MDRD) Af Amer 112 Est GFR (MDRD) Non-Af 92 BUN/Creatinine Ratio 14.3 Glucose 131 H Calcium 9.2 Troponin I High Sens 6 Rhythm Strip Rhythm Strip: Sinus Rhythm Rate: 65 Ectopy: None EKG Initial EKG: Attestation: I personally reviewed and interpreted this EKG as follows: Interpretation: Sinus Rhythm, No Acute Injury Pattern and RBBB Prior EKG tracings: available for review (2020) Prior: Unchanged Discharge Plan Triage Chief Complaint: Cellulitis ED Provider: Aidan Lance Dx/Rx/DC Orders Clinical Impression: Cellulitis of right lower leg, COPD (chronic obstructive pulmonary disease), Chest pain, unspecified Instructions: ED Cellulitis, ED Chest Pain, Uncertain Cause Prescriptions: New cephalexin [cephalexin] 500 mg capsule 500 mg PO Q6 Qty: 40 0RF No Action simvastatin 40 mg tablet 40 mg PO QPM losartan 50 mg tablet 25 mg PO QDAY aspirin 81 mg tablet,delayed release (DR/EC) 81 mg PO DAILY duloxetine 60 mg capsule,delayed release(DR/EC) 60 mg PO DAILY nitroglycerin [Nitrostat] 0.4 mg tablet, sublingual 0.4 mg SUBLINGUAL ONCE Rx Instructions: as a single dose; administer 5-10 minutes before situation known to precipitate angina attack multivitamin capsule 1 cap PO DAILY omeprazole 40 MG capsule 40 mg PO DAILY ergocalciferol (vitamin D2) 50,000 UNIT capsule 50,000 unit PO Q7D albuterol sulfate 6.7 GM HFA aerosol inhaler 6.7 g IH PRN PRN (Reason: Wheezing) levothyroxine 50 mcg tablet 75 mcg PO DAILY mirtazapine 15 mg tablet 45 mg PO QHS fluticasone propionate 1 SPRAY spray,suspension 1 spray NASAL DAILY budesonide-formoterol 160-4.5 mcg/actuation HFA aerosol inhaler 2 puff INHALATION BID Qty: 10.2 11RF clopidogrel 75 mg tablet 75 mg PO QDAY Qty: 90 3RF gabapentin 400 mg capsule 400 mg PO TID metformin 1,000 mg tablet 1,000 mg PO BID furosemide [Lasix] 40 mg tablet 60 mg PO DAILY Spiriva Respimat 2.5 mcg/actuation mist 2 puff INHALATION DAILY Qty: 4 0RF isosorbide mononitrate 60 mg tablet extended release 24 hr 30 mg PO BID Qty: 90 3RF Primary Care Provider: [facility] Genevieve Langston Referrals: [facility] Ivis,Genevieve Moreno [Primary Care Provider] - 3-5 Days Disposition Disposition: Home, Self Care
[2022-02-03 13:07] VITALS: PULSE 62; RESP 18
[2022-02-03] MEDS: Albuterol 2.5 MG/3 ML VIAL.NEB. INHALATION (13:07)
[2022-02-03 13:12] LABS: Hematocrit 48.6 % (40-54); Hemoglobin 16.9 g/dL (13.0-16.5); Mean Corp Hgb Conc 34.8 g/dL (32-36); Mean Corpuscular Hgb 33.5 pg (27.0-32.0); Mean Corpuscular Volume 96.4 fL (80-94); Mean Platelet Vol. 10.4 fl (6.2-12.0); Platelet Count 141 K/mm3 (150-450); RBC Distribution Width CV 13.2 % (11.6-14.6); RBC Distribution Width SD 47.3 fl (35.1-43.9); Red Blood Count 5.04 M/mm3 (4.6-6.2); White Blood Count 5.5 K/mm3 (4.4-11.0)
[2022-02-03 13:23] LABS: D-Dimer Quantitative (DVT/PE) 0.41 FEU/ug/m (0.27-0.49)
[2022-02-03 13:29] LABS: Anion Gap 8 (5-15); BUN 13 mg/dL (7-18); BUN/Creat Ratio 14.3 RATIO (10-20); Calcium,Total 9.2 mg/dL (8.5-10.1); Chloride 103 mmol/L (98-107); Creatinine, Serum 0.91 mg/dL (0.70-1.30); EST Glomerular Filtration Rate 92 mL/min (>60); Est Glom Filt Rate - Afr Amer 112 mL/min (>60); Estimated Creatinine Clearance 91.72 ml/min; Glucose 131 mg/dL (74-106); Potassium 4.1 mmol/L (3.5-5.1); Sodium Level 138 mmol/L (136-145); Troponin-I HS 6 pg/mL (3.0-78.0)
[2022-02-03 13:58] VITALS: BP 131/75; PULSE 61; RESP 15; O2SAT 93
[2022-02-03] MEDS: Cephalexin 250 MG Capsule 500 MG PO (14:40)
[2022-02-03 15:00] VITALS: BP 133/76; PULSE 69; RESP 16; O2SAT 98
[2022-02-03 17:15] VITALS: PULSE 69; RESP 15; O2SAT 99
== END 2022-02-03 17:16 | disposition home or self-care (01) ==
PROVIDERS: Emergency Provider Emergency Medicine; Visit Provider Emergency Medicine
DX: R07.9 Chest pain, unspecified (principal); J44.9 Chronic obstructive pulmonary disease, unspecified; E11.9 Type 2 diabetes mellitus without complications; L03.115 Cellulitis of right lower limb; F17.210 Nicotine dependence, cigarettes, uncomplicated; M79.89 Other specified soft tissue disorders; I10 Essential (primary) hypertension; E78.5 Hyperlipidemia, unspecified; I25.10 Atherosclerotic heart disease of native coronary artery without angina pectoris; E66.9 Obesity, unspecified; Z79.82 Long term (current) use of aspirin; Z79.899 Other long term (current) drug therapy; Z79.84 Long term (current) use of oral hypoglycemic drugs
CPT/HCPCS: 80048; 84484; 85027; 85379; 93005; 93971; 94640; 96365; 96366; 99284; J7040; J7050; A4216

== ENCOUNTER 2022-08-13 19:13 | Emergency (ER) | payer MEDICAID, SELFPAY ==
[2022-08-13 19:14] VITALS: BP 168/98; PULSE 83; RESP 16; TEMP 36.6; O2SAT 95; BMI 41.9
[2022-08-13 20:31] LABS: Basophil# 0.02 X10^3/uL; Basophil% 0.3 % (0-1); Eosinophil# 0.08 X10^3/uL; Eosinophils% 1.3 % (0-5); Hematocrit 50.8 % (40-54); Hemoglobin 17.7 g/dL (13.0-16.5); Lymphocyte % 42.9 % (19-41); Mean Corp Hgb Conc 34.8 g/dL (32-36); Mean Corpuscular Hgb 34.7 pg (27.0-32.0); Mean Corpuscular Volume 99.6 fL (80-94); Mean Platelet Vol. 10.8 fl (6.2-12.0); Monocyte# 0.51 X10^3/uL; Monocyte% 8.1 % (0-10); NRBC Flagged by Analyzer 0 % (0-5); Neutrophil # 2.96 X10^3/uL (2.7-7.7); Neutrophil % 47.1 % (47-70); Platelet Count 156 K/mm3 (150-450); RBC Distribution Width CV 12.5 % (11.6-14.6); RBC Distribution Width SD 46.1 fl (35.1-43.9); White Blood Count 6.3 K/mm3 (4.4-11.0)
[2022-08-13 20:32] LABS: Bacteria 0 SEEN /hpf (None Seen); Mucous, Urine 0 SEEN /hpf (<or=2+); Red Blood Cells-Urine 0 SEEN /hpf (0-5); Squamous Epithelial Cells - UA 0 SEEN /hpf (0-5); White Blood Cells 0 SEEN /hpf (0-5)
[2022-08-13 21:02] LABS: ALB/GLOB Ratio 1.2 RATIO (0.9-2.4); AST(SGOT) 63 U/L (15-37); Alanine Aminotransfer ALT/SGPT 138 U/L (16-61); Alkaline Phosphatase 94 U/L (45-117); Anion Gap 9 (5-15); BUN 16 mg/dL (7-18); BUN/Creat Ratio 17.6 RATIO (10-20); Calcium,Total 9.2 mg/dL (8.5-10.1); Chloride 102 mmol/L (98-107); Creatinine, Serum 0.91 mg/dL (0.70-1.30); EST Glomerular Filtration Rate 92 mL/min (>60); Est Glom Filt Rate - Afr Amer 111 mL/min (>60); Estimated Creatinine Clearance 91.72 ml/min; Globulin 3.3 g/dL (2.2-4.2); Glucose 157 mg/dL (74-106); Lipase 256 U/L (73-393); Potassium 3.8 mmol/L (3.5-5.1); Protein, Total 7.3 g/dL (6.4-8.2); Sodium Level 139 mmol/L (136-145)
[2022-08-13 21:04] LABS: Color, Urine Straw (Yellow); Glucose, Dipstick 1000 mg/dl (Normal); Ketone-Dipstick Negative (Negative); Leukocyte Esterase-Dipstick Negative /ul (Negative); Nitrite-Dipstick Negative (Negative); Occult Blood-Urine Negative /ul (Negative); Protein-Dipstick Negative (Negative); Urine Bilirubin Dipstick Negative (Negative); Urine Clarity Clear (Clear); Urine Urobilinogen Normal (Normal)
[2022-08-13 21:14] VITALS: RESP 18
--- NOTE | 2022-08-13 21:20 | CT_ITS ---
STUDY: CT Abdomen And Pelvis W/ Contrast Injection 08/13/2022 9:38 PM REASON FOR EXAM: Male, 56 years old. Abdominal pain llq abdominal pain Individualized dose optimization techniques were used for this CT. COMPARISON: None. TECHNIQUE: CT Abdomen And Pelvis W/ Contrast Injection IV 100mL [id number] FINDINGS: The visualized lung bases are unremarkable. The visualized portions of the heart are within normal limits. There is decreased attenuation of the liver consistent with steatosis. There are surgical clips in the gallbladder fossa consistent with a prior cholecystectomy. Normal spleen. Normal pancreas. Normal bilateral adrenal glands. No acute findings of the right kidney. No acute findings of the left kidney. Normal visualized stomach. Normal small intestine. Stool throughout the colon. There is non-visualization of the appendix. There are calcifications of the abdominal aorta. This is consistent for atherosclerotic disease. There is NO abdominal aortic aneurysm. Vascular workup can be obtained based on clinical correlation. Normal inferior vena cava. Subcentimeter mesenteric lymph nodes. Normal urinary bladder. There are prostatic calcifications. There are bilateral inguinal hernias containing fat. There is no bowel involvement. There is no incarceration. There is no findings suggesting that this is causing a bowel obstruction. There is an umbilical hernia containing fat. There are diffuse degenerative changes of the visualized lumbar spine. CT/Abdomen/Pelvis W IV Cont ONLY IMPRESSION: (NOT LISTED IN ORDER OF SIGNIFICANCE) Fatty liver. Other findings as above. Electronically Signed: Zion Hammond MD at 21:41 EDT ,
--- NOTE | 2022-08-13 22:12 | ED.VIS.GI ---
HPI HPI - GI History of Present Illness Chief Complaint: Flank Pain Narrative Narrative: 56-year-old male presenting with left sided abdominal pain that has been present for about a month. He states starts in the left lateral flank and radiates to the mid abdomen. He denies constipation, diarrhea, urinary symptoms, nausea, vomiting. He denies any trauma. He is eating and drinking normally. He has not had a fever. No history of kidney stones. [facility] Medical History Atherosclerosis of coronary artery of [place] heart without angina pectoris Bilateral knee pain Body mass index (BMI) 35 or more Chest pain, unspecified COPD (chronic obstructive pulmonary disease) Difficulty swallowing MASON (dyspnea on exertion) Essential hypertension Gastroesophageal reflux disease Hyperlipidemia Hypertriglyceridemia Localized edema Long-term use of high-risk medication Morbid obesity due to excess calories Obstructive sleep apnea Patellofemoral arthritis of right knee Pneumonia due to other streptococci Right bundle-branch block Sinus drainage Situational syncope Stage 2 moderate COPD by GOLD classification Tobacco abuse Type 2 diabetes mellitus Home Medications albuterol sulfate 90 mcg/actuation aerosol inhaler 6.7 g IH PRN PRN Wheezing 12/06/14 [History Last Taken Unknown] ergocalciferol (vitamin D2) 1,250 mcg (50,000 unit) capsule 50,000 unit PO Q7D 12/06/14 [History Last Taken Unknown] omeprazole 40 mg capsule,delayed release 40 mg PO DAILY 12/06/14 [History Last Taken Unknown] fluticasone propionate 50 mcg/actuation nasal spray,suspension 1 spray NASAL DAILY 05/05/16 [History Last Taken Unknown] simvastatin 40 mg tablet 40 mg PO QPM 07/30/17 [History Last Taken Unknown] aspirin 81 mg tablet,delayed release 81 mg PO DAILY 08/11/19 [History Last Taken Unknown] duloxetine 60 mg capsule,delayed release 60 mg PO DAILY 08/11/19 [History Last Taken Unknown] levothyroxine 50 mcg tablet 75 mcg PO DAILY 08/11/19 [History Last Taken Unknown] losartan 50 mg tablet 25 mg PO QDAY 08/11/19 [History Last Taken Unknown] mirtazapine 15 mg tablet 45 mg PO QHS 08/11/19 [History Last Taken Unknown] multivitamin 1 cap PO DAILY 08/11/19 [History Last Taken Unknown] nitroglycerin 0.4 mg sublingual tablet (Nitrostat) 0.4 mg sublingual ONCE 08/11/19 [History Last Taken Unknown] budesonide-formoterol HFA 160 mcg-4.5 mcg/actuation aerosol inhaler 2 puff inhalation BID #10.2 grams 12/05/19 [Rx Last Taken Unknown] clopidogrel 75 mg tablet 75 mg PO QDAY #90 tabs 12/29/19 [Rx Last Taken Unknown] furosemide 40 mg tablet (Lasix) 60 mg PO DAILY 11/15/20 [History Last Taken Unknown] gabapentin 400 mg capsule 400 mg PO TID 11/15/20 [History Last Taken Unknown] metformin 1,000 mg tablet 1,000 mg PO BID 11/15/20 [History Last Taken Unknown] tiotropium bromide 2.5 mcg/actuation mist for inhalation (Spiriva Respimat) 2 puff inhalation DAILY #4 grams 06/10/21 [Rx Last Taken Unknown] isosorbide mononitrate 60 mg tablet,extended release 24 hr 30 mg PO BID #90 tabs 12/03/21 [Rx Last Taken Unknown] cephalexin 500 mg capsule 500 mg PO Q6 #40 CAPSULES 02/03/22 [Rx Last Taken Unknown] Allergy/AdvReac Type Severity Reaction Status Date / Time No Known Allergies Allergy Verified 08/13/22 19:16 Family History Father CVA (cerebral vascular accident) Brother CAD (coronary artery disease) Diabetes Mother COPD (chronic obstructive pulmonary disease) Sarcoidosis Surgical History H/O umbilical hernia repair History of carpal tunnel surgery of right wrist History of coronary artery stent placement (~03/25/16) History of left heart catheterization S/P laparoscopic cholecystectomy Social History Smoking Status: Current every day smoker tobacco type: cigarettes second hand exposure: Yes alcohol intake: never substance use type: does not use caffeine: Yes Type: coffee Number of servings: 2 what type of physical activity do you participate in: none ROS ROS ED Constitutional Constitutional ED: Denies chills, fever(s) or sweats Eyes Eyes: Denies blurry vision or change in vision ENT ENT ED: Denies ear pain or sore throat Cardiovascular Cardiovascular: Denies chest pain, palpitations or racing heartbeat Respiratory/Chest Respiratory/Chest: Denies cough, dyspnea or sputum Gastrointestinal Gastrointestinal: Reports abdominal pain; Denies constipation, diarrhea, nausea or vomiting Genitourinary Genitourinary ED: Denies dysuria, hematuria or urinary frequency Musculoskeletal Musculoskeletal: Denies arthralgias, myalgias or neck pain Integumentary Denies abscess, Abrasions or rash Neurologic Neurologic: Denies headache(s), paresthesias or weakness Psychiatric Psychiatric: Denies anxiety, depression, suicidal ideation or suicidal thoughts Endocrine Endocrinology: Denies polydipsia or polyuria EXAM Physical Exam Const Vital Signs: 08/13/22 19:14 08/13/22 21:14 Temperature 97.9 F Temperature Source Temporal Pulse Rate 83 Respiratory Rate 16 18 Blood Pressure 168/98 H Blood Pressure Mean 121 Pulse Ox 95 Oxygen Delivery Method Room Air Positive well nourished and obese General Appearance ED: NAD; Negative for pallor Nutritional Appearance: obese HEENT Reports moist mucous membranes normocephalic Eyes PERRL and EOMs intact bilaterally Resp normal respiratory effort and clear to auscultation bilaterally Auscultation: Negative for rales, rhonchi or wheezes Cardio regular rate and regular rhythm GI Palpation: tender LLQ Back/Spine no CVA tenderness Neuro CN's II-XII intact bilaterally Sensorium / Orientation: alert Motor Exam: strength 5/5 throughout Psych mental status grossly normal Skin no wounds General Skin Exam: Negative for jaundice or pallor MDM MDM MDM Narrative Medical decision making narrative: Patient presenting with left-sided abdominal that radiates around to the anterior. No history of kidney stones. He does not have any CVA tenderness on exam. Differential includes but is not limited to colitis, diverticulitis, kidney stone, UTI. Patient concerned he might have pancreatitis but is not of epigastric pain. CBC to assess white blood cell count, hemoglobin, platelets, differential. CMP to assess liver function, renal function, electrolytes patient presents urinalysis to assess for occult blood or infection. Patient declines analgesia. CBC shows normal white blood cell count of 6.3. Hemoglobin is concentrated at 17.7. Platelets are normal at 126. Renal function and electrolytes are normal. Glucose 147 without anion gap. AST 63 ALT 138 however the rest of his liver enzymes are normal. Lipase negative. Urinalysis shows 1000 glucose but no evidence of infection or occult blood.. CT of the abdomen pelvis was obtained and shows no acute intra-abdominal abnormality. Recommend follow-up with PCP and return cautions were discussed. Impression: 1. Abdominal pain Lab Data Labs: Laboratory Results - last 24 hr 08/13/22 08/13/22 08/13/22 20:21 20:21 20:21 WBC 6.3 RBC 5.10 Hgb 17.7 H Hct 50.8 MCV 99.6 H MCH 34.7 H MCHC 34.8 RDW Std Deviation 46.1 H RDW Coeff of Autumn 12.5 Plt Count 156 MPV 10.8 Immature Gran % (Auto) 0.300 Neut % (Auto) 47.1 Lymph % (Auto) 42.9 H [place] % (Auto) 8.1 Eos % (Auto) 1.3 Baso % (Auto) 0.3 Absolute Neuts (auto) 3.0 Absolute Lymphs (auto) 2.70 Nucleated RBC % 0 Sodium 139 Potassium 3.8 Chloride 102 Carbon Dioxide 28.0 Anion Gap 9 BUN 16 Creatinine 0.91 Estim Creat Clear Calc 91.72 Est GFR (MDRD) Af Amer 111 Est GFR (MDRD) Non-Af 92 BUN/Creatinine Ratio 17.6 Glucose 157 H Calcium 9.2 Total Bilirubin 0.50 AST 63 H ALT 138 H Alkaline Phosphatase 94 Total Protein 7.3 Albumin 4.0 Globulin 3.3 Albumin/Globulin Ratio 1.2 Lipase 256 Urine Color Straw Urine Clarity Clear Urine pH 7.0 Ur Specific [place] 1.010 Urine Protein Negative Urine Glucose (UA) 1000 H Urine Ketones Negative Urine Occult Blood Negative Urine Nitrite Negative Urine Bilirubin Negative Urine Urobilinogen Normal Ur Leukocyte Esterase Negative Urine RBC 0 SEEN Urine WBC 0 SEEN Ur Squamous Epith Cells 0 SEEN Urine Bacteria 0 SEEN Urine Mucus 0 SEEN Radiography Diagnostic Testing: Clinical Impression(s) from Imaging Studies Abdomen/Pelvis CT 08/13/22 21:20 IMPRESSION: (NOT LISTED IN ORDER OF SIGNIFICANCE) Fatty liver. Other findings as above. Electronically Signed: iZon Hammond MD at 21:41 EDT Reading Location ID and State: [facility] / [place] , Service support , Discharge Plan Triage Chief Complaint: Flank Pain ED Provider: Clarke Reed Dx/Rx/DC Orders Instructions: ED Abdominal Pain Unkn Cause Male... Prescriptions: No Action simvastatin 40 mg tablet 40 mg PO QPM losartan 50 mg tablet 25 mg PO QDAY aspirin 81 mg tablet,delayed release (DR/EC) 81 mg PO DAILY duloxetine 60 mg capsule,delayed release(DR/EC) 60 mg PO DAILY nitroglycerin [Nitrostat] 0.4 mg tablet, sublingual 0.4 mg SUBLINGUAL ONCE Rx Instructions: as a single dose; administer 5-10 minutes before situation known to precipitate angina attack multivitamin capsule 1 cap PO DAILY omeprazole 40 MG capsule 40 mg PO DAILY ergocalciferol (vitamin D2) 50,000 UNIT capsule 50,000 unit PO Q7D albuterol sulfate 6.7 GM HFA aerosol inhaler 6.7 g IH PRN PRN (Reason: Wheezing) levothyroxine 50 mcg tablet 75 mcg PO DAILY mirtazapine 15 mg tablet 45 mg PO QHS fluticasone propionate 1 SPRAY spray,suspension 1 spray NASAL DAILY cephalexin [cephalexin] 500 mg capsule 500 mg PO Q6 Qty: 40 0RF budesonide-formoterol 160-4.5 mcg/actuation HFA aerosol inhaler 2 puff INHALATION BID Qty: 10.2 11RF clopidogrel 75 mg tablet 75 mg PO QDAY Qty: 90 3RF gabapentin 400 mg capsule 400 mg PO TID metformin 1,000 mg tablet 1,000 mg PO BID furosemide [Lasix] 40 mg tablet 60 mg PO DAILY Spiriva Respimat 2.5 mcg/actuation mist 2 puff INHALATION DAILY Qty: 4 0RF isosorbide mononitrate 60 mg tablet extended release 24 hr 30 mg PO BID Qty: 90 3RF Primary Care Provider: [facility] Genevieve Langston Referrals: [facility],Genevieve Moreno [Primary Care Provider] - Disposition Disposition: Home, Self Care
[2022-08-13 22:19] VITALS: BP 134/66; PULSE 79; RESP 16; O2SAT 95
== END 2022-08-13 22:20 | disposition home or self-care (01) ==
PROVIDERS: Emergency Provider Student in an Organized Health Care Education/Training Program; Visit Provider Student in an Organized Health Care Education/Training Program
DX: R10.32 Left lower quadrant pain (principal); J44.9 Chronic obstructive pulmonary disease, unspecified; E11.9 Type 2 diabetes mellitus without complications; I25.10 Atherosclerotic heart disease of native coronary artery without angina pectoris; I10 Essential (primary) hypertension; E78.5 Hyperlipidemia, unspecified; F17.210 Nicotine dependence, cigarettes, uncomplicated; E66.9 Obesity, unspecified; K76.0 Fatty (change of) liver, not elsewhere classified
CPT/HCPCS: 74177; 80053; 81001; 83690; 85025; 99283; Q9967; A4216

== ENCOUNTER → 2022-08-28 | Outpatient (CLI) | payer MEDICAID, SELFPAY ==
--- NOTE | 2022-08-28 16:48 | RAD_ITS ---
STUDY: X-RAY - LUMBAR SPINE REASON FOR EXAM: Male, 56 years old. SCIATICA TECHNIQUE: 3 view(s) of the lumbar spine were obtained. COMPARISON: None FINDINGS: Normal lumbar lordosis. There is a minimal scoliosis. There is a normal alignment of the vertebrae. Normal vertebral bodies with spurring at the upper lumbar endplates. Narrowed L1-2 disc space. The soft tissue structures are unremarkable. RAD/Lumbar Spine 2 or 3 Views IMPRESSION: Degenerative changes at the upper lumbar spine. Electronically Signed: Marciano Ventura DO at 23:36 EDT Reading Location ID and State: [facility] / [place] Tel [phone], Service support ,
== END | disposition home or self-care (01) ==
PROVIDERS: Referring Provider Nurse Practitioner Family; Visit Provider Nurse Practitioner Family
DX: M54.32 Sciatica, left side (principal)
CPT/HCPCS: 72100

== ENCOUNTER → 2022-10-07 | Outpatient (CLI) | payer MEDICAID, SELFPAY ==
[2022-10-07 09:19] LABS: AST(SGOT) 79 U/L (15-37); Alanine Aminotransfer ALT/SGPT 150 U/L (16-61); Albumin, Serum 3.7 g/dL (3.2-5.0); Alkaline Phosphatase 120 U/L (45-117); Bilirubin, Direct 0.14 mg/dL (0.00-0.30); Cholesterol 220 mg/dL (200); Globulin 3.4 g/dL (2.2-4.2); High Density Lipoprotein 31 mg/dL; Protein, Total 7.1 g/dL (6.4-8.2); Triglycerides 693 mg/dL
== END | disposition home or self-care (01) ==
LOC: LAB 07:15
PROVIDERS: Nurse Practitioner Family
DX: R94.5 Abnormal results of liver function studies (principal); I25.10 Atherosclerotic heart disease of native coronary artery without angina pectoris; E78.5 Hyperlipidemia, unspecified; Z95.5 Presence of coronary angioplasty implant and graft
CPT/HCPCS: 36415; 80061; 80076

== ENCOUNTER → 2022-10-17 | Outpatient (CLI) | payer MEDICAID, SELFPAY ==
--- NOTE | 2022-10-17 16:43 | MRI_ITS ---
INDICATION: Pain, abnormal neuro exam EXAMINATION: MRI - MR Spine Thoracic W/O Contrast TECHNIQUE: Multiplanar and multisequence MR images of the thoracic spine without contrast. IV Contrast Dosage and Agent: None. COMPARISON: October 11, 2014 CT chest. September 18, 2022 thoracic spine radiograph. October 17, 2022 lumbar spine MRI. FINDINGS: VERTEBRAE: Normal general bone marrow signal. No fracture or acute compression deformity. No aggressive osseous lesion. Normal thoracic spine alignment. DISCS: Normal disc height and morphology. Normal spinal canal and neuroforamina. CORD: Unremarkable in signal and morphology. SOFT TISSUES: Unremarkable. MRI/Spine Thoracic (Routine) IMPRESSION: Unremarkable MRI of the thoracic spine. No evidence of spinal canal or neural foraminal stenosis. Electronically Signed: Jon Vaughn MD at 8:00 EDT ,
--- NOTE | 2022-10-17 16:43 | MRI_ITS ---
INDICATION: Low back pain, abnormal neurological exam. EXAMINATION: MR Spine Lumbar W/O Contrast TECHNIQUE: Multiplanar and multisequence MR images of the lumbar spine. IV Contrast Dosage and Agent: None. COMPARISON: Lumbar spine x-rays August 28, 2022. MRI thoracic spine October 17, 2022. FINDINGS: VERTEBRAE: Vertebral body heights are preserved. No marrow edema or fracture. Mixture of Modic type I and II endplate change at L1-2 associated with intervertebral disc height loss and Schmorl''s node formation. VERTEBRAL ALIGNMENT: No spondylolisthesis. There is preservation of the normal lumbar lordosis. CORD: Normal position and signal intensity of the conus medullaris. Conus terminates normally at L1. SOFT TISSUES: Aorta is normal in caliber. Visualized retroperitoneal and paraspinous soft tissues are unremarkable. AXIAL IMAGES: L1-2: Broad central protrusion effacing the ventral thecal sac with subarticular recess narrowing and mild displacement of the traversing L2 nerve roots bilaterally. Small endplate osteophyte formation. Mildly prominent posterior epidural fat. Moderate spinal canal narrowing. Mild to moderate bilateral foraminal narrowing. L2-3, L3-4, L4-5, L5-S1: No focal disc protrusion. Facets are intact. No significant spinal canal or foraminal narrowing. MRI/Spine Lumbar (Routine) IMPRESSION: L1-2 disc protrusion with spinal stenosis and nerve root impingement as described. Electronically Signed: Phillip Sanchez MD at 18:16 EDT ,
== END | disposition home or self-care (01) ==
LOC: MRI 16:43
PROVIDERS: Referring Provider Nurse Practitioner; Visit Provider Nurse Practitioner
DX: M54.6 Pain in thoracic spine (principal); M54.50 Low back pain, unspecified
CPT/HCPCS: 72146; 72148

== ENCOUNTER → 2023-02-20 | Outpatient (CLI) | payer MEDICAID, SELFPAY ==
[2023-02-20 11:28] LABS: Erythrocyte Sedimentation Rate 1 mm/hr (0-20)
[2023-02-20 11:33] LABS: Absolute Lymphocyte Count 2.18 X10^3/uL (0.83-4.51); Absolute Neutrophil Count 3.7 X10^3/uL (2.0-7.7); Basophil# 0.03 X10^3/uL; Basophil% 0.5 % (0-1); Eosinophils% 1.6 % (0-5); Hematocrit 52.1 % (40-54); Lymphocyte # 2.18 X10^3/ul (0.83-4.51); Mean Corp Hgb Conc 34.7 g/dL (32-36); Mean Corpuscular Hgb 34.3 pg (27.0-32.0); Mean Corpuscular Volume 98.7 fL (80-94); Mean Platelet Vol. 10.6 fl (6.2-12.0); Monocyte# 0.43 X10^3/uL; Monocyte% 6.7 % (0-10); NRBC Flagged by Analyzer 0 % (0-5); Neutrophil # 3.65 X10^3/uL (2.7-7.7); Neutrophil % 56.7 % (47-70); Platelet Count 154 K/mm3 (150-450); RBC Distribution Width CV 12.8 % (11.6-14.6); RBC Distribution Width SD 46.5 fl (35.1-43.9); Red Blood Count 5.28 M/mm3 (4.6-6.2); White Blood Count 6.4 K/mm3 (4.4-11.0)
[2023-02-20 11:35] LABS: Prothrombin Time (Protime)PT. 13.6 SECONDS (11.7-14.9)
[2023-02-20 11:42] LABS: Hemoglobin 18.1 g/dL (13.0-16.5)
[2023-02-20 11:43] LABS: Differential Indicated SCAN CRITERIA MET
[2023-02-20 11:45] LABS: Differential Comment SCANNED
[2023-02-20 11:48] LABS: ALB/GLOB Ratio 1.3 RATIO (0.9-2.4); AST(SGOT) 51 U/L (15-37); Alanine Aminotransfer ALT/SGPT 113 U/L (16-61); Alkaline Phosphatase 104 U/L (45-117); Anion Gap 2 (5-15); BUN 11 mg/dL (7-18); BUN/Creat Ratio 12.5 RATIO (10-20); CRP < 2.90 mg/L (0.0-3.0); Chloride 107 mmol/L (98-107); Creatinine, Serum 0.88 mg/dL (0.70-1.30); EST Glomerular Filtration Rate 95 mL/min (>60); Est Glom Filt Rate - Afr Amer 115 mL/min (>60); Ferritin 263 ng/mL (26-388); Globulin 3.1 g/dL (2.2-4.2); Glucose 148 mg/dL (74-106); Hemoglobin A1c 8.1 % (3.8-5.6); LDH 248 U/L (87-241); Potassium 3.9 mmol/L (3.5-5.1); Protein, Total 7.1 g/dL (6.4-8.2); Sodium Level 136 mmol/L (136-145)
[2023-02-20 12:10] LABS: HIV - WCH Non-Reactive (Nonreactive)
[2023-02-23 12:08] LABS: Anti-Centromere B Ab <0.2 AI (0.0-0.9); Anti-Chromatin <0.2 AI (0.0-0.9); Anti-Jo <0.2 AI (0.0-0.9); Anti-Mitochondrial AB <20.0 Units (0.0-20.0); Anti-Scleroderma-70 AB <0.2 AI (0.0-0.9); Anti-dsDNA Ab 3 IU/mL (0-9); RNP Ab 0.2 AI (0.0-0.9); SJOGREN'S Anti-SS-A test < 0.2 AI (0.0-0.9); SJOGREN'S Anti-SS-B test < 0.2 AI (0.0-0.9); Smith Ab <0.2 AI (0.0-0.9)
[2023-02-24 08:49] LABS: Pathologist Review Reviewed
[2023-02-28 08:12] LABS: AFP, Tumor Marker 5.7 ng/mL (0.0-8.4); Angiotensin Convert Enzyme 77 U/L (14-82); Anti-Smooth Muscle ABS 5 Units (0-19); Ceruloplasmin 11.1 mg/dL (16.0-31.0); Copper, Serum or Plasma 61 ug/dL (69-132); Cytoplasmic Ab (C-ANCA) <1:20 titer (Neg:<1:20); HEPATITIS B SURFACE AG Negative (Negative); Haptoglobin < 10 mg/dL (29-370); Hep C Antibodies Non Reactive (Non Reactive); Hepatitis A IgM Antibody Negative (Negative); Hepatitis B Core AB IgM Negative (Negative); Perinuclear Ab (P-ANCA) <1:20 titer (Neg:<1:20)
== END | disposition home or self-care (01) ==
LOC: LAB 10:56
PROVIDERS: Referring Provider Internal Medicine Gastroenterology; Visit Provider Internal Medicine Gastroenterology
DX: K76.0 Fatty (change of) liver, not elsewhere classified (principal)
CPT/HCPCS: 36415; 80053; 80074; 82105; 82140; 82164; 82390; 82525; 82728; 83010; 83036; 83516; 83615; 85025; 85610; 85652; 86140; 86225; 86235; 86256; 86703

== ENCOUNTER → 2023-03-11 | Outpatient (CLI) | payer MEDICAID, SELFPAY ==
--- NOTE | 2023-03-11 09:18 | US_ITS ---
STUDY: ABDOMINAL ULTRASOUND - RIGHT UPPER QUADRANT REASON FOR VISIT: Male, 57 years old fatty infiltration of the liver. TECHNIQUE: Ultrasound evaluation of the right upper quadrant was performed with real-time and static salazar-scale imaging. TECHNICAL QUALITY: Limited. Examination limited by bowel gas. COMPARISON: Comparison is made with prior study dated August 01, 2019. FINDINGS: Liver: The liver is enlarged at measures 20.2 cm. There is increased echogenicity consistent with fatty infiltration. The bile ducts are within normal limits. There is hepatic color flow. The direction of portal flow is hepatopetal. There is no demonstrated mass lesion. Gallbladder: The patient is status post cholecystectomy. Common Bile Duct (C.B.D.): The common bile duct measures 7.3 mm. Pancreas: Normal size of the head of the pancreas. The body and tail portions of the pancreas were obscured due to overlying bowel gas. There is normal echogenicity of the pancreas. There is no demonstrated pancreatic mass or cyst. Right Kidney: Normal size of the right kidney. The right kidney measures 12.8 cm x 6.2 cm x 6.2 cm. Normal renal cortex. The right cortex measures 1.5 cm. There is no demonstrated renal mass or cyst. There is no right hydronephrosis. US/Abdomen Limited IMPRESSION: Hepatomegaly and fatty infiltration of the liver. Status post cholecystectomy. Electronically Signed: Anton Felix MD at 9:18 EDT ,
--- NOTE | 2023-03-11 09:18 | US_ITS ---
STUDY: ABDOMINAL ULTRASOUND - ELASTOGRAPHY REASON FOR VISIT: Male, 57 years old. Fatty infiltration of the liver. TECHNIQUE: Liver stiffness measurements were obtained on a [employer] [id number] 85 ultrasound machine using a CA 1-7 probe following the U guidelines. 3 measurements were obtained using a 2-D-SWE method. TheIQR/M was 14% suggesting a quality data set. TECHNICAL QUALITY: Adequate. COMPARISON: None. FINDINGS: Liver: There is no demonstrated mass lesion. Median liver stiffness measured 9.3 kPa. Abdomen: There is no demonstrated mass lesion. US/Elastography Parenchyma/Organ IMPRESSION: Liver stiffness measures 9.3 kPa compatible with F2-F3 (Mild to moderate liver fibrosis) Metavir score. Electronically Signed: Anton Felix MD at 9:14 EDT ,
[2023-03-11 12:10] LABS: Hemoglobin 17.1 g/dL (13.0-16.5)
[2023-03-11 12:58] LABS: Ferritin 259 ng/mL (26-388)
[2023-03-19 09:10] LABS: Ceruloplasmin 11.2 mg/dL (16.0-31.0); Copper, Serum or Plasma 59 ug/dL (69-132); Haptoglobin < 10 mg/dL (29-370); Transferrin 237 mg/dL (177-329)
== END | disposition home or self-care (01) ==
PROVIDERS: Referring Provider Internal Medicine Gastroenterology; Visit Provider Internal Medicine Gastroenterology
DX: K76.0 Fatty (change of) liver, not elsewhere classified (principal)
CPT/HCPCS: 36415; 76705; 76981; 82390; 82525; 82728; 83010; 84466; 85018

== ENCOUNTER → 2023-06-05 | Outpatient (CLI) | payer MEDICAID, SELFPAY ==
--- OUTSIDE RECORDS SUMMARY | 2023-06-05 06:43 | XMS RPT_ITS | CCD ---
Author Name Unknown Address [address] [place] [address] Organization [facility] Care Team Providers Care Candy Roller Name Role Phone Lupe Hughes Primary Care Provider [phone] Neptali DIE DESIGNER, Teri Unavailable LUPE HUGHES Primary Care Unavailable NENITA CHRISTINE Attending Unavailable LUPE HUGHES Primary Care Unavailable RIC BOWERS Attending Unavailable TERI BETANCOURT Referring Unavailable LUPE HUGHES Primary Care Unavailable RIC BOWERS Referring Unavailable Medications Completed/Discontinued Medications Medication Drug Class(es) Dates Sig (Normalized) Sig (Original) albuterol 0.83 mg/ml inhalation solution (1 source) beta2-Adrenergic Agonist take 2.5 mg by inhalation every four hours as needed albuterol (PROVENTIL) 2.5 mg /3 mL (0.083 %) nebulizer solution Use 2.5 mg via nebulizer every 4 hours as needed. 0 Active Problems Active Problems Problem Classification Problem Date Documented Date Episodic/Chronic Chronic obstructive pulmonary disease and bronchiectasis (1 source) Chronic obstructive lung disease; Translations: [Chronic obstructive pulmonary disease, unspecified] Onset: 05-08-2015 05-08-2015 Chronic Conduction disorders (1 source) Right bundle branch block; Translations: [Unspecified right bundle-branch block] Onset: 05-08-2015 05-08-2015 Chronic Coronary atherosclerosis and other heart disease (2 sources) Coronary arteriosclerosis; Translations: [Atherosclerotic heart disease of [place] coronary artery without angina pectoris] Onset: 05-08-2015 05-08-2015 Chronic Diabetes mellitus with complications (1 source) Disorder of nervous system due to type 2 diabetes mellitus; Translations: [Type 2 diabetes mellitus with other diabetic neurological complication] Chronic Diabetes mellitus without complication (1 source) Diabetes mellitus; Translations: [Type 2 diabetes mellitus without complications] Onset: 05-08-2015 05-08-2015 Chronic Esophageal disorders (1 source) Gastroesophageal reflux disease; Translations: [Gastro-esophageal reflux disease without esophagitis] Onset: 05-08-2015 05-08-2015 Chronic Essential hypertension (1 source) Hypertensive disorder; Translations: [Essential (primary) hypertension] Onset: 07-18-2014 Chronic Osteoarthritis (1 source) Degenerative joint disease involving multiple joints; Translations: [Polyosteoarthritis, unspecified] Onset: 01-05-2015 01-05-2015 Chronic Other circulatory disease (1 source) Abnormal peripheral pulse; Translations: [Other specified symptoms and signs involving the circulatory and respiratory systems] Episodic Other nervous system disorders (1 source) Chronic pain syndrome; Translations: [Chronic pain syndrome] Onset: 01-05-2015 01-05-2015 Chronic Other nervous system disorders (1 source) Bilateral carpal tunnel syndrome; Translations: [Carpal tunnel syndrome, bilateral upper limbs] Onset: 02-06-2015 02-06-2015 Chronic Other nervous system disorders (1 source) Carpal tunnel syndrome of left wrist; Translations: [Carpal tunnel syndrome, left upper limb] Onset: 05-21-2015 05-21-2015 Chronic Other nutritional; endocrine; and metabolic disorders (1 source) Morbid obesity; Translations: [Morbid (severe) obesity due to excess calories] Onset: 05-08-2015 05-08-2015 Chronic Other skin disorders (1 source) Ingrowing toenail; Translations: [Ingrowing nail] Episodic Pancreatic disorders (not diabetes) (1 source) Acute pancreatitis without necrosis or infection, unspecified; Translations: [Acute pancreatitis, unspecified complication status, unspecified pancreatitis type] Onset: 12-12-2022 Episodic Residual codes; unclassified (1 source) Obstructive sleep apnea syndrome; Translations: [Obstructive sleep apnea (adult) (pediatric)] Onset: 05-08-2015 05-08-2015 Chronic Thyroid disorders (1 source) Hypothyroidism; Translations: [Hypothyroidism, unspecified] Onset: 07-18-2014 Chronic Past or Other Problems Problem Classification Problem Date Documented Da te Episodic/Chronic Abdominal pain (1 source) Epigastric pain; Translations: [Epigastric pain] Onset: 07-18-2014 Episodic Other non-traumatic joint disorders (1 source) Pain in lower limb; Translations: [Pain in unspecified knee] Onset: 02-12-2015 02-12-2015 Episodic Residual codes; unclassified (1 source) Tobacco user; Translations: [Tobacco use] Onset: 05-08-2015 05-08-2015 Episodic Residual codes; unclassified (1 source) Pain, unspecified; Translations: [Pain] Onset: 08-12-2022 Episodic Results Test Name Value Interpretation Reference Range Facil ity Encounters Encounter Date Encounter Type Care Provider Facility Start: 12-12-2022 End: 12-12-2022 Emergency department patient visit [facility] Facility:[facility] Start: 08-12-2022 End: 08-12-2022 ambulatory [facility] Facility:[facility] Start: 08-12-2022 End: 08-12-2022 Patient encounter procedure Ric Bowers Work Phone: Podiatry Plan of Treatment Date Care Activity Detail Author Start: 03-30-2029 Urine microalbumin profile DTAP,TDAP,TD (2 - Td or Tdap) [facility] Start: 08-06-2023 Hepatitis B surface antibody level LDL CHOLESTEROL [facility] Start: 02-05-2023 Hemoglobin A1c/Hemoglobin.total in Blood HBA1C [facility] Start: 06-01-2022 DEPRESSION ASSESSMENT DEPRESSION ASSESSMENT [facility] Start: 2021 PROSTATE CANCER SCREENING DISCUSSION PROSTATE CANCER SCREENING DISCUSSION [facility] Start: 06-29-2021 COVID-19 VACCINE (4 - Booster for Moderna series) COVID-19 VACCINE (4 - Booster for Moderna series) [facility] Start: 2016 Influenza vaccination LUNG CANCER SCREENING [facility] Start: 2016 SHINGRIX VACCINE (1 of 2) SHINGRIX VACCINE (1 of 2) [facility] Start: 07-19-2015 PNEUMOCOCCAL (2 - PCV) PNEUMOCOCCAL (2 - PCV) [facility] Start: 12-19-2011 COLOGUARD (FIT-DNA) COLOGUARD (FIT-DNA) [facility] Start: 12-19-2011 Colonoscopy COLONOSCOPY [facility] Start: 12-19-2011 COLORECTAL CANCER SCREENING COLORECTAL CANCER SCREENING [facility] Start: 12-19-[address] COLONOGRAPHY [facility] Start: 12-19-2011 FECAL OCCULT BLOOD FECAL OCCULT BLOOD [facility] Start: 12-19-2011 SIGMOIDOSCOPY SIGMOIDOSCOPY [facility] Start: 1996 Zoledronic acid therapy ALPHA-1 ANTITRYPSIN DEFICIENCY SCREENING [facility] Start: 1984 ANNUAL PCP TEAM CHRONIC DISEASE VISIT ANNUAL PCP TEAM CHRONIC DISEASE VISIT [facility] Start: 1984 BP CONTROLLED (<130/80) BP CONTROLLED (<130/80) [facility] Start: 1984 HEPATITIS C SCREENING HEPATITIS C SCREENING [facility] Start: 1984 HIV SCREENING HIV SCREENING [facility] Start: 1976 3 comp foot exam completed DIABETIC FOOT EXAM [facility] Start: 1976 Hepatitis B screening URINE ALBUMIN:CREATININE RATIO [facility] Start: 1976 Hepatitis C antibody, confirmatory test DILATED RETINAL EXAM [facility] Start: 1966 HEPATITIS B (1 of 3 - 3-dose series) HEPATITIS B (1 of 3 - 3-dose series) [facility] End: 08-13-2023 PVR ANK PRESS [facility]VR ANK PRESS [facility] Routine Other diabetic neurological complication associated with type 2 diabetes mellitus (HCC) Ingrowing toenail Diminished pulses in lower extremity 1 Occurrences starting 08/12/2022 until 08/13/2023 [facility] Work Phone: Immunizations Immunization Date Immunization Notes Care Provider Lili matthews 03-30-2019 tetanus toxoid, redu adonis diphtheria toxoid, and acellular pertussis vaccine, adsorbed Ric Bowers Work Phone: [facility] Work Phone: 07-19-2014 pneumococcal polysaccharide vaccine, 23 valent Ric Bowers Work Phone: [facility] 06-02-2014 influenza, seasonal, injectable Ric Bowers Work Phone: [facility] Work Phone: Payers Date Payer Category Payer Medicaid [place] [employer] [place] [employer] [id number] 2022-Present [phone] [address] [place] [address] Medicaid [id number] 2022 Medicaid [id number] Social History Date Type Detail Facility Start: 10-13-1980 Tobacco smoking stat us [facility]IS Smokes tobacco daily [facility] Start: 10-13-1980 History of tobacco use Cigarette Smo ker [facility] Start: 08-06-2015 Cigarettes smoked cu rrent (pack per day) - Reported 1 [facility] Start: 08-06-2015 Tobacco use and exposure Smoke less tobacco non-user [facility] Start: 08-12-2022 Alcohol intake Current non-dr perfumer of alcohol (finding) [facility] Start: 1965 Sex Assigned At Not on file [facility] Progress note 08-12-2022 Note Date & Type Note Facility 08-12-2022 Note HNO ID: [id number] Author: Ric Bowers Service: ? Author Type: Physician Type: Progress Notes Filed: 08/12/2022 10:23 AM Note Text: Consultation requested by Dr. Betancourt for an opinion regarding diabetic foot exam. My final recommendations will be communicated back to the requesting physician by way of shared Medical record or letter to requesting physician via [place] mail. Initial Office Visit Subjective: This 56 year old male presents to clinic for diabetic foot check. Patient complains of burning and tingling of b/l feet . Patient does take neurontin 600 mg tid which does help. Patient admits to being diabetic for 10 years now. Patient +B/T/N in feet at this time. Patient +pain in legs when walking. No other pedal complaints at this time. Patient smokes 1 pack of cigarettes/day No change in medications or medical history since last visit. PAIN EVALUATION 08/12/2022 0927 Description: Burning Hemoglobin A1C (%) Date Value 08/05/2022 6.9 03/12/2018 6.3 03/26/2016 6.6 PCP: Lupe Hughes CNP PAST MEDICAL HISTORY Diagnosis Date CAD (coronary artery disease) stenosis of LAD Chronic obstructive pulmonary disease (COPD) (HCC) DM (diabetes mellitus) (HCC) GERD (gastroesophageal reflux disease) Hypertension Obesity CANDELARIA (obstructive sleep apnea) RBBB Thyroid disease Tobacco abuse Current Outpatient Medications Medication Sig DULoxetine (CYMBALTA) 60 mg capsule Take 60 mg by mouth once daily. clopidogrel (PLAVIX) 75 mg tablet Take 75 mg by mouth once daily. cholecalciferol, Vitamin D3, (VITAMIN D3) 1,250 mcg (50,000 unit) cap capsule Take 1 capsule by mouth one time a week. JARDIANCE 10 mg tablet Take 10 mg by mouth every morning. fluticasone (FLONASE) 50 mcg/actuation nasal spray Use 2 Sprays in each nostril once daily. loratadine (CLARITIN) 10 mg tablet Take 1 tablet by mouth q 24 HR. nitroglycerin sublingual (NITROQUICK) 0.4 mg SL tablet Dissolve 1 tablet under the tongue as needed. simvastatin (ZOCOR) 20 mg tablet Take 20 mg by mouth daily at bedtime. aspirin, enteric coated (ASPIRIN, ENTERIC COATED) 81 mg EC tablet Take 81 mg by mouth once daily. isosorbide mononitrate ER (IMDUR) 30 mg 24 hr tablet Take 30 tablets by mouth once daily. losartan (COZAAR) 50 mg tablet Take 50 mg by mouth once daily. metFORMIN (GLUCOPHAGE) 500 mg tablet Take 1,000 mg by mouth twice daily with meals. furosemide (LASIX) 40 mg tablet Take 40 mg by mouth once daily. BUDESONIDE/FORMOTEROL FUMARATE (SYMBICORT INHALATION) Inhale 2 Puffs as instructed twice daily. Unsure of dosage tiotropium (SPIRIVA) 18 mcg inhalation capsule Inhale 18 mcg as instructed once daily. levothyroxine (SYNTHROID) 50 mcg tablet Take 1 tablet by mouth daily before breakfast. fenofibrate (LOFIBRA) 67 mg capsule Take 1 capsule by mouth daily with breakfast. omeprazole (PRILOSEC) 20 mg capsule Take 20 mg by mouth twice daily. gabapentin (NEURONTIN) 300 mg capsule Take 600 mg by mouth three times daily. ergocalciferol 50,000 unit capsule (VITAMIN D2, DRISDOL) Take 50,000 Units by mouth once each week. mirtazapine (REMERON) 15 mg tablet Take 45 mg by mouth daily at bedtime. meloxicam (MOBIC) 15 mg tablet Take 1 tablet by mouth once daily. (Patient not taking: Reported on 08/12/2022) amitriptyline (ELAVIL) 50 mg tablet Take 50 mg by mouth daily at bedtime. (Patient not taking: Reported on 08/12/2022) albuterol (PROVENTIL) 2.5 mg /3 mL (0.083 %) nebulizer solution Use 2.5 mg via nebulizer every 4 hours as needed. (Patient not taking: Reported on 08/12/2022) No current facility-administered medications for this visit. ALLERGIES No Known Allergies PAST SURGICAL HISTORY Procedure Laterality Date HEART CATHETERIZATION 11/2014 LAD 50-60% stenosis, RCA 40-50% HERNIA REPAIR HX 2000 LAPAROSCOPY SURG CHOLECYSTECTOMY 2000 PAST SURGICAL HISTORY OF dental extraction REVISE MEDIAN N/CARPAL TUNNEL SURG 05/18/15 left [facility] No family history on file. Social History Tobacco Use Smoking status: Every Day Packs/day: 1.00 Years: 34.00 Pack years: 34.00 Types: Cigarettes Start date: 10/13/1980 Smokeless tobacco: Never Vaping Use Vaping Use: Never used Substance Use Topics Alcohol use: No Drug use: No REVIEW OF SYSTEMS GENERAL: Negative for Malaise, significant weight loss, fever RESPIRATORY: Negative for cough, wheezing and shortness of breath CARDIOVASCULAR: Negative for chest pain, leg swelling and palpitations GI: Negative for abdominal discomfort, blood in stools or black stools and change in bowel habits : Negative for dysuria, frequency and incontinence MUSCULOSKELETAL: Negative for joint pain or swelling, back pain, and muscle pain. SKIN: Negative for lesions, rash, and itching. HEMATOLOGY/LYMPHOLOGY Negative for prolonged bleeding, bruising easily, and swollen nodes. ENDOCRINE: Negative for cold or heat intolerance, polyuria, polydipsia and (more content not included)... [facility] Progress note 08-12-2022 Note Date & Type Note Facility 08-12-2022 Note HNO ID: [id number] Author: Sierra Novak RN Service: ? Author Type: Registered Nurse Type: Progress Notes Filed: 08/12/2022 10:23 AM Note Text: AMB ROOMING INTAKE FLOWSHEET DATA Risk Screening Do you have concerns about personal safety or safety in the home?: No Pain Description: Burning Patient presents with: Left Foot - New, Diabetic Foot Check Right Foot - New, Diabetic Foot Check Patient presents for diabetic foot exam and was referred to Podiatry by his PCP. Patient has a history of neuropathy. [facility] Instructions 08-12-2022 Patient Instructions Note Date & Type Note Facility 08-12-2022 Instructions Ric Bowers - 08/12/2022 10:11 AM EDT Diabetes Foot Care Instructions When you have diabetes, proper foot care is very important. Poor foot care may lead to amputation of a foot or leg. As a person with diabetes, you are more vulnerable to foot problems, because diabetes can damage your nerves and reduce blood flow to your feet. Here are some diabetes foot care tips to follow: Wash and Dry Your Feet Daily Use mild soaps Use warm water Pat your skin dry; do not rub. Thoroughly dry your feet. After washing, use lotion on your feet to prevent cracking. Do not put lotion between your toes. Examine Your Feet Each Day Check the tops and bottoms of your feet. Have someone else look at your feet if you cannot see them. Check for dry, cracked skin. Look for blisters, cuts, scratches, or other sores. Check for redness, increased warmth, or tenderness when touching any area of your feet. Check for ingrown toenails, corns, and calluses. If you get a blister or sore from your shoes, do not pop it. Apply a bandage and wear a different pair of shoes. Take Care of Your Toenails Cut toenails after bathing, when they are soft. Cut toenails straight across and smooth with a nail file. Avoid cutting into the corners of toes. Do not cut cuticles. If you have neuropathy (or decreased sensation in your feet) a satellite dish repairer should always cut your toenails. Be Careful When Exercising Walk and exercise in comfortable shoes. Do not exercise when you have open sores on your feet. Protect Your Feet With Shoes and Socks Never go barefoot. Always protect your feet by wearing shoes or hard-soled slippers or footwear. Avoid shoes with high heels and pointed toes. Avoid shoes that expose your toes or heels (such as open-toed shoes or sandals). These types of shoes increase your risk for injury and potential infections. Try on new footwear with the type of socks you usually wear. Do not wear new shoes for more than an hour at a time. Change your socks daily. Look and feel inside your shoes before putting them on to make sure there are no foreign objects or rough areas. Avoid tight socks. Wear natural-fiber socks (cotton, wool, or a cotton-wool blend). Wear special shoes if your health care provider recommends them. Wear shoes/boots that will protect your feet from various weather conditions (cold, moisture, etc.). Make sure your shoes fit properly. If you have neuropathy (nerve damage), you may not notice that your shoes are too tight. Perform the footwear test described below. Footwear Test Use this simple test to see if your shoes fit correctly: Stand on a piece of paper. (Make sure you are standing and not sitting, because your foot changes shape when you stand.) Trace the outline of your foot. Trace the outline of your shoe. Compare the tracings: Is the shoe too narrow? Is your foot crammed into the shoe? The shoe should be at least 1/2 inch longer than your longest toe and as wide as your foot. Proper Shoe Choices The following types of shoes are best for people with diabetes Closed toes and heels Leather uppers without a seam inside At least 1/2 inch extra space at the end of your longest toe Inside of shoe should be soft with no rough areas Outer sole should be made of stiff material Shoes should be at least as wide as your feet Tips for Foot Care in Diabetes Don't wait to treat a minor foot problem if you have diabetes. Follow your health care provider's guidelines and first aid guidelines. Report foot injuries and infections to your health care provider immediately. Check water temperature with your elbow, not your foot. Do not use a heating pad on your feet. Do not cross your legs. Do not self-treat your corns, calluses, or other foot problems. Go to your health care provider or satellite dish repairer to treat these conditions. documented in this encounter [facility] History of Present illness Narrative 08-12-2022 Ric Bowers - 08/12/2022 10:03 AM Yobany Novak RN - 08/12/2022 9:27 AM EDT Note Date & Type Note Facility 08-12-2022 History of Presen t illness Narrative Consultation requested by Dr. Betancourt for an opinion regarding diabetic foot exam. My final recommendations will be communicated back to the requesting physician by way of shared Medical record or letter to requesting physician via [place] mail. Initial Office Visit Subjective: This 56 year old male presents to clinic for diabetic foot check. Patient complains of burning and tingling of b/l feet . Patient does take neurontin 600 mg tid which does help. Patient admits to being diabetic for 10 years now. Patient +B/T/N in feet at this time. Patient +pain in legs when walking. No other pedal complaints at this time. Patient smokes 1 pack of cigarettes/day No change in medications or medical history since last visit. PAIN EVALUATION 08/12/2022 0927 Description: Burning Hemoglobin A1C (%) Date Value 08/05/2022 6.9 03/12/2018 6.3 03/26/2016 6.6 PCP: Lupe Hughes CNP PAST MEDICAL HISTORY Diagnosis Date CAD (coronary artery disease) stenosis of LAD Chronic obstructive pulmonary disease (COPD) ([facility]) DM (diabetes mellitus) (HCC) GERD (gastroesophageal reflux disease) Hypertension Obesity CANDELARIA (obstructive sleep apnea) RBBB Thyroid disease Tobacco abuse Current Outpatient Medications Medication Sig DULoxetine (CYMBALTA) 60 mg capsule Take 60 mg by mouth once daily. clopidogrel (PLAVIX) 75 mg tablet Take 75 mg by mouth once daily. cholecalciferol, Vitamin D3, (VITAMIN D3) 1,250 mcg (50,000 unit) cap capsule Take 1 capsule by mouth one time a week. JARDIANCE 10 mg tablet Take 10 mg by mouth every morning. fluticasone (FLONASE) 50 mcg/actuation nasal spray Use 2 Sprays in each nostril once daily. loratadine (CLARITIN) 10 mg tablet Take 1 tablet by mouth q 24 HR. nitroglycerin sublingual (NITROQUICK) 0.4 mg SL tablet Dissolve 1 tablet under the tongue as needed. simvastatin (ZOCOR) 20 mg tablet Take 20 mg by mouth daily at bedtime. aspirin, enteric coated (ASPIRIN, ENTERIC COATED) 81 mg EC tablet Take 81 mg by mouth once daily. isosorbide mononitrate ER (IMDUR) 30 mg 24 hr tablet Take 30 tablets by mouth once daily. losartan (COZAAR) 50 mg tablet Take 50 mg by mouth once daily. metFORMIN (GLUCOPHAGE) 500 mg tablet Take 1,000 mg by mouth twice daily with meals. furosemide (LASIX) 40 mg tablet Take 40 mg by mouth once daily. BUDESONIDE/FORMOTEROL FUMARATE (SYMBICORT INHALATION) Inhale 2 Puffs as instructed twice daily. Unsure of dosage tiotropium (SPIRIVA) 18 mcg inhalation capsule Inhale 18 mcg as instructed once daily. levothyroxine (SYNTHROID) 50 mcg tablet Take 1 tablet by mouth daily before breakfast. fenofibrate (LOFIBRA) 67 mg capsule Take 1 capsule by mouth daily with breakfast. omeprazole (PRILOSEC) 20 mg capsule Take 20 mg by mouth twice daily. gabapentin (NEURONTIN) 300 mg capsule Take 600 mg by mouth three times daily. ergocalciferol 50,000 unit capsule (VITAMIN D2, DRISDOL) Take 50,000 Units by mouth once each week. mirtazapine (REMERON) 15 mg tablet Take 45 mg by mouth daily at bedtime. meloxicam (MOBIC) 15 mg tablet Take 1 tablet by mouth once daily. (Patient not taking: Reported on 08/12/2022) amitriptyline (ELAVIL) 50 mg tablet Take 50 mg by mouth daily at bedtime. (Patient not taking: Reported on 08/12/2022) albuterol (PROVENTIL) 2.5 mg /3 mL (0.083 %) nebulizer solution Use 2.5 mg via nebulizer every 4 hours as needed. (Patient not taking: Reported on 08/12/2022) No current facility-administered medications for this visit. ALLERGIES No Known Allergies PAST SURGICAL HISTORY Procedure Laterality Date HEART CATHETERIZATION 11/2014 LAD 50-60% stenosis, RCA 40-50% HERNIA REPAIR HX 2000 LAPAROSCOPY SURG CHOLECYSTECTOMY 2000 PAST SURGICAL HISTORY OF dental extraction REVISE MEDIAN N/CARPAL TUNNEL SURG 05/18/15 left [facility] No family history on file. Social History Tobacco Use Smoking status: Every Day Packs/day: 1.00 Years: 34.00 Pack years: 34.00 Types: Cigarettes Start date: 10/13/1980 Smokeless tobacco: Never Vaping Use Vaping Use: Never used Substance Use Topics Alcohol use: No Drug use: No REVIEW OF SYSTEMS GENERAL: Negative for Malaise, significant weight loss, fever RESPIRATORY: Negative for cough, wheezing and shortness of breath CARDIOVASCULAR: Negative for chest pain, leg swelling and palpitations GI: Negative for abdominal discomfort, blood in stools or black stools and change in bowel habits : Negative for dysuria, frequency and incontinence MUSCULOSKELETAL: Negative for joint pain or swelling, back pain, and muscle pain. SKIN: Negative for lesions, rash, and itching. HEMATOLOGY/LYMPHOLOGY Negative for prolonged bleeding, bruising easily, and swollen nodes. ENDOCRINE: Negative for cold or heat intolerance, polyuria, polydipsia and goiter. NEURO: negative The remainder of the review of systems is noncontributory. Objective: Patient presents to clinic ambulating in [facility] Constitutional: Pt is a well developed 56 year old male who is alert, oriented, cooperative and in no apparent distress. Eyes: Following during examination. No redness or drainage. Respiratory: RR normal and nonlabored. Even breathing. No evidence of distress. Psychology: Patient is engaged during conversation. Normal affect and mood. Does not appear depressed or anxious. Vasc: DP and PT pulses are faintly palpable bilateral. CFT is less than 5 seconds bilateral. Skin temperature is warm to cool proximal to distal bilateral. There is mild edema or varicosities noted. Hair growth absent. Neuro: Protective sensation is intact the foot and toes when tested with the 5.07 SWM bilateral. Vibratory sensation is decreased at the hallux bilateral. + Significant neurological defecits. Derm: Inspection and palpation performed. Nails 1-5 b/l are normal in length and thickness. B/l hallus has ingrowing tendency. No signs of infection Skin is of normal turgor and texture. Hyperkeratosis noted to not present. NO ulcerations, scars, verruca or other lesions noted. Ortho: Ankle joint DF is full with the knee extended and full with knee flexed. No pain or crepitus noted. STJ, MTJ ROM are full and free of pain or crepitus. Muscle strength is 5/5 for dorsiflexors, plantarflexors, inverters, everters. Digital deformities include no. Assessment: (E11.49) Other diabetic neurological complication associated with type 2 diabetes mellitus (HCC) (primary encounter diagnosis) (L60.0) Ingrowing toenail (R09.89) Diminished pulses in lower extremity Plan: 1. Patient was seen and evaluated. 2. Patient was instructed on the continued importance of diabetic foot care along with proper diet and keeping their blood sugar under control to prevent complications. Instructions given both oral and written. 3. Discussed ingrowing tendency of b/l hallux. Could be candidate for partial or total nail matrixectomy but being he is diabetic, smoker of 1pack of cigarettes/day I would like to make sure perfusion is adequate to toes to heal a toenail procedure 4. Smoking cessation was encouraged 5. Continue with neurontin for neuropathy Ric Bowers DPM AMB ROOMING INTAKE FLOWSHEET DATA Risk Screening Do you have concerns about personal safety or safety in the home?: No Pain Description: Burning Patient presents with: Left Foot - New, Diabetic Foot Check Right Foot - New, Diabetic Foot Check Patient presents for diabetic foot exam and was referred to Podiatry by his PCP. Patient has a history of neuropathy. documented in this encounter [facility] Evaluation note Note Date & Type Note Facility documented in this encounter [facility] Reason for referral (narrative) Outpatient Procedure (Routine) - Pending Review Note Date & Type Note Facility Referral ID Status Reason Start Date Expiration Date Visits Requested Visits Authorized [id number] Pending Review Auto-Generat ed Referral 08/12/2022 08/12/2023 1 1 [facility] Summary Purpose Family History No Family History Records FoundNo Family History Records FoundNo Family History Records Found Advance Directives No Advanced Directives Records FoundNo Advanced Directives Records FoundNo Advanced Directives Records Found Additional Source Comments (unrecognized sect ion and content) No Status Records FoundNo Status Records FoundNo Status Records Found INFORMATION SOURCE (unrecogn ized section and content) DATE CREATED AUTHOR AUTHOR'S ORGANIZ ATION 12/13/2022 [facility] DATE CREATED AUTHOR AUTHOR'S ORGANIZ ATION 02/10/2023 [facility] Source Comments (unrecognize d section and content) In the event this informatio n is protected by the Federal Confidentiality of Alcohol and Drug Abuse Patient Records regulations: The Federal rules restrict any use of the information to criminally investigate or prosecute any alcohol or drug abuse patient.[facility] Reason for Visit (unrecogniz ed section and content) Care Teams (unrecognized sec tion and content) FOR RECORDS PERTAINING TO PATIENTS WHO ARE OR HAVE BEEN ENROLLED IN A CHEMICAL DEPENDENCY/SUBSTANCEABUSE PROGRAM, SOME INFORMATION MAY BE OMITTED. This clinical summary was aggregated from multiple sources. Caution should be exercised in using it in the provision of clinical care. This summary normalizes information from multiple sources, and as a consequence, information in this document may materially change the coding, format and clinical context of patient data. In addition, data may be omitted in some cases. CLINICAL DECISIONS SHOULD BE BASED ON THE PRIMARY CLINICAL RECORDS. [facility]. provides no warranty or guarantee of the accuracy or completeness of information in this document.
[2023-06-05 07:49] LABS: Cholesterol 215 mg/dL (200); High Density Lipoprotein 31 mg/dL; PSA,Total - Annual Screen 0.28 ng/mL (0.00-4.00); Triglycerides 513 mg/dL
[2023-06-05 11:00] LABS: Absolute Lymphocyte Count 2.32 X10^3/uL (0.83-4.51); Absolute Neutrophil Count 3.2 X10^3/uL (2.0-7.7); Basophil# 0.03 X10^3/uL; Basophil% 0.5 % (0-1); Eosinophil# 0.09 X10^3/uL; Eosinophils% 1.5 % (0-5); Hematocrit 50.6 % (40-54); Hemoglobin 17.8 g/dL (13.0-16.5); Lymphocyte # 2.32 X10^3/ul (0.83-4.51); Lymphocyte % 38.2 % (19-41); Mean Corp Hgb Conc 35.2 g/dL (32-36); Mean Corpuscular Hgb 34.3 pg (27.0-32.0); Mean Corpuscular Volume 97.5 fL (80-94); Mean Platelet Vol. 11.4 fl (6.2-12.0); Monocyte# 0.39 X10^3/uL; Monocyte% 6.4 % (0-10); NRBC Flagged by Analyzer 0 % (0-5); Neutrophil # 3.23 X10^3/uL (2.7-7.7); Neutrophil % 53.1 % (47-70); Platelet Count 132 K/mm3 (150-450); RBC Distribution Width CV 12.6 % (11.6-14.6); RBC Distribution Width SD 45.2 fl (35.1-43.9); Red Blood Count 5.19 M/mm3 (4.6-6.2); White Blood Count 6.1 K/mm3 (4.4-11.0)
[2023-06-05 11:08] LABS: Prothrombin Time (Protime)PT. 13.4 SECONDS (11.7-14.9)
[2023-06-05 11:34] LABS: ALB/GLOB Ratio 1.1 RATIO (0.9-2.4); AST(SGOT) 102 U/L (15-37); Alanine Aminotransfer ALT/SGPT 155 U/L (16-61); Albumin, Serum 3.7 g/dL (3.2-5.0); Alkaline Phosphatase 119 U/L (45-117); Anion Gap 7 (5-15); BUN 12 mg/dL (7-18); BUN/Creat Ratio 12.3 RATIO (10-20); CRP < 2.90 mg/L (0.0-3.0); Calcium,Total 9.7 mg/dL (8.5-10.1); Chloride 103 mmol/L (98-107); Creatinine, Serum 0.98 mg/dL (0.70-1.30); EST Glomerular Filtration Rate 84 mL/min (>60); Est Glom Filt Rate - Afr Amer 102 mL/min (>60); Globulin 3.5 g/dL (2.2-4.2); Glucose 244 mg/dL (74-106); Potassium 3.9 mmol/L (3.5-5.1); Protein, Total 7.2 g/dL (6.4-8.2); Sodium Level 136 mmol/L (136-145)
[2023-06-06 04:10] LABS: AFP, Tumor Marker 5.7 ng/mL (0.0-8.4)
== END | disposition home or self-care (01) ==
PROVIDERS: Internal Medicine
DX: Z12.5 Encounter for screening for malignant neoplasm of prostate (principal); E78.5 Hyperlipidemia, unspecified; K76.0 Fatty (change of) liver, not elsewhere classified; R10.9 Unspecified abdominal pain
CPT/HCPCS: 84153; 36415; 80053; 80061; 82105; 82140; 85025; 85610; 86140; G0103

== ENCOUNTER → 2023-06-12 | Outpatient (CLI) | payer MEDICAID, SELFPAY ==
--- NOTE | 2023-06-12 15:44 | CT_ITS ---
INDICATION: NAFLD -- ascites,cirrhosis?. Triple phase r/o HCC EXAMINATION: CT Abdomen And Pelvis WO/W Contrast Injection TECHNIQUE: Helically acquired images were obtained of the abdomen and pelvis after IV contrast. A radiation dose optimization technique was used for this scan. IV Contrast dosage and agent: IV 370 isovue 100 ml Oral contrast: None. COMPARISON: 08/13/2022. FINDINGS: Visualized lung bases: Unremarkable Liver: Diffusely hypodense consistent with fatty liver. Gallbladder: Surgically absent. Spleen: Unremarkable Pancreas: Unremarkable Adrenal Glands: Unremarkable Kidneys: Unremarkable Vasculature: Moderate aortoiliac atherosclerotic disease. GI Tract: Unremarkable Lymphadenopathy: None Peritoneum: No ascites. Bladder: Unremarkable Reproductive organs: Unremarkable Bones/Soft tissues: There are diffuse degenerative changes of the spine. CT/CT Abd/Pelvis W/WO Contrast IMPRESSION: Hepatic steatosis. No evidence of cirrhosis or HCC. Electronically Signed: Deonte Davenport MD at 16:52 EST ,
--- OUTSIDE RECORDS SUMMARY | 2023-06-12 16:46 | XMS RPT_ITS | CCD ---
Author Name Unknown Address [address] [place] [address] Organization [facility] Care Team Providers Care Digital Coordinator Name Role Phone Lupe Hughes Primary Care Provider [phone] [place] [employer], Teri Unavailable LUPE HUGHES Primary Care Unavailable [...] Coronary arteriosclerosis; Translations: [Atherosclerotic heart disease of beaver coronary artery without angina pectoris] Onset: 05-08-2015 [...] 12-12-2022 End: 12-12-2022 Emergency department patient visit [facility] Facility:[facility] Start: 08-12-2022 End: 08-12-2022 ambulatory [facility] Facility:[facility] Start: 08-12-2022 End: 08-12-2022 Patient encounter procedure Ric Bowers Work Phone: Podiatry Plan of Treatment Date Care Activity Detail Author Start: 03-30-2029 Urine microalbumin profile DTAP,TDAP,TD (2 - Td or Tdap) [facility] Start: 08-06-2023 Hepatitis B surface antibody level LDL CHOLESTEROL [facility] Start: 02-05-2023 Hemoglobin A1c/Hemoglobin.total in Blood HBA1C [facility] Start: 06-01-2022 DEPRESSION ASSESSMENT DEPRESSION ASSESSMENT [facility] Start: 2021 PROSTATE CANCER SCREENING DISCUSSION PROSTATE CANCER SCREENING DISCUSSION [facility] Start: 06-29-2021 COVID-19 VACCINE (4 - Booster for Moderna series) COVID-19 VACCINE (4 - Booster for Moderna series) [facility] Start: 2016 Influenza vaccination LUNG CANCER SCREENING [facility] Start: 2016 SHINGRIX VACCINE (1 of 2) SHINGRIX VACCINE (1 of 2) [facility] Start: 07-19-2015 PNEUMOCOCCAL (2 - PCV) PNEUMOCOCCAL (2 - PCV) [facility] Start: 12-19-2011 COLOGUARD (FIT-DNA) COLOGUARD (FIT-DNA) [facility] Start: 12-19-2011 Colonoscopy COLONOSCOPY [facility] Start: 12-19-2011 COLORECTAL CANCER SCREENING COLORECTAL CANCER SCREENING [facility] Start: 12-19-[address] COLONOGRAPHY [facility] Start: 12-19-2011 FECAL OCCULT BLOOD FECAL OCCULT BLOOD [facility] Start: 12-19-2011 SIGMOIDOSCOPY SIGMOIDOSCOPY [facility] Start: 1996 Zoledronic acid therapy ALPHA-1 ANTITRYPSIN DEFICIENCY SCREENING [facility] Start: 1984 ANNUAL PCP TEAM CHRONIC DISEASE VISIT ANNUAL PCP TEAM CHRONIC DISEASE VISIT [facility] Start: 1984 BP CONTROLLED (<130/80) BP CONTROLLED (<130/80) [facility] Start: 1984 HEPATITIS C SCREENING HEPATITIS C SCREENING [facility] Start: 1984 HIV SCREENING HIV SCREENING [facility] Start: 1976 3 comp foot exam completed DIABETIC FOOT EXAM [facility] Start: 1976 Hepatitis B screening URINE ALBUMIN:CREATININE RATIO [facility] Start: 1976 Hepatitis C antibody, confirmatory test DILATED RETINAL EXAM [facility] Start: 1966 HEPATITIS B (1 of 3 - 3-dose series) HEPATITIS B (1 of 3 - 3-dose series) [facility] End: 08-13-2023 PVR ANK PRESS [facility] PVR ANK PRESS [facility] Routine Other diabetic neurological complication associated with type 2 diabetes mellitus (HCC) Ingrowing toenail Diminished pulses in lower extremity 1 Occurrences starting 08/12/2022 until 08/13/2023 [facility] Work Phone: Immunizations Immunization Date Immunization Notes Care Provider Lili matthews 03-30-2019 tetanus toxoid, redu adonis diphtheria toxoid, and acellular pertussis vaccine, adsorbed Ric Bowers Work Phone: [facility] Work Phone: 07-19-2014 pneumococcal polysaccharide vaccine, 23 valent Ric Bowers Work Phone: [facility] 06-02-2014 influenza, seasonal, injectable Ric Bowers Work Phone: [facility] Work Phone: Payers Date Payer Category Payer Medicaid [place] [employer] [employer] [id number] 2022-Present [phone] [address] [place] [address] Medicaid [id number] 2022 Medicaid [id number] Social History Date Type Detail Facility Start: 10-13-1980 Tobacco smoking stat us NHIS Smokes tobacco daily [facility] Start: 10-13-1980 History of tobacco use Cigarette Smo ker [facility] Start: 08-06-2015 Cigarettes smoked cu rrent (pack per day) - Reported 1 [facility] Start: 08-06-2015 Tobacco use and exposure Smoke less tobacco non-user [facility] Start: 08-12-2022 Alcohol intake Current non-dr bead picker of alcohol (finding) [facility] Start: 1965 Sex Assigned At Not on file [facility] Progress note 08-12-2022 Note Date & Type Note Facility 08-12-2022 Note HNO ID: [id number] Author: Ric Bowers Service: ? Author Type: [...] polyuria, polydipsia and (more content not included)... [facility] Progress note 08-12-2022 Note Date & Type Note Facility 08-12-2022 Note HNO ID: [id number] Author: Sierra Novak RN Service: ? Author [...] PCP. Patient has a history of neuropathy. [facility] Instructions 08-12-2022 Patient Instructions Note Date & [...] (or decreased sensation in your feet) a teacher's aide should always cut your toenails. Be Careful [...] Go to your health care provider or teacher's aide to treat these conditions. documented in this encounter [facility] History of Present illness Narrative 08-12-2022 Ric [...] of LAD Chronic obstructive pulmonary disease (COPD) ([facility]) DM (diabetes mellitus) (HCC) GERD (gastroesophageal reflux [...] Objective: Patient presents to clinic ambulating in [facility] Constitutional: Pt is a well developed [...] history of neuropathy. documented in this encounter [facility] Evaluation note Note Date & Type Note Facility documented in this encounter [facility] Reason for referral (narrative) Outpatient Procedure (Routine) - Pending Review Note Date & Type Note Facility Referral ID Status Reason Start Date Expiration Date Visits Requested Visits Authorized [id number] Pending Review Auto-Generat ed Referral 08/12/2022 08/12/2023 1 1 [facility] Summary Purpose Family History No Family History [...] DATE CREATED AUTHOR AUTHOR'S ORGANIZ ATION 12/13/2022 [facility] DATE CREATED AUTHOR AUTHOR'S ORGANIZ ATION 02/10/2023 [facility] Source Comments (unrecognize d section and content) In the event this informatio n is protected by the Federal Confidentiality of Alcohol and Drug Abuse Patient Records regulations: The Federal rules restrict any use of the information to criminally investigate or prosecute any alcohol or drug abuse patient.[facility] Reason for Visit (unrecogniz ed section and [...] BE BASED ON THE PRIMARY CLINICAL RECORDS. [facility]. provides no warranty or guarantee of the accuracy or completeness of information in this document.
== END | disposition home or self-care (01) ==
LOC: CT 15:43
PROVIDERS: Referring Provider Internal Medicine; Visit Provider Internal Medicine
DX: K76.0 Fatty (change of) liver, not elsewhere classified (principal); R10.9 Unspecified abdominal pain
CPT/HCPCS: 74178; Q9967

== ENCOUNTER → 2023-09-18 | Outpatient (CLI) | payer MEDICAID, SELFPAY ==
--- NOTE | 2023-09-18 09:04 | US_ITS ---
HISTORY: left flank, groin, testicle pain. TECHNIQUE: Realtime ultrasound of the testicles was performed with grayscale, Color Doppler and spectral Doppler analysis. 65 images. COMPARISON: None. FINDINGS: Right- TESTIS: 2.1 x 2.5 x 3.5 cm. Heterogeneous echotexture without focal lesion. COLOR DOPPLER: Normal arterial flow present in the testicle with monophasic waveforms. EPIDIDYMIS: 6 x 7 x 8 mm with a 6 mm cyst. [No focal hyperemia. EXTRATESTICULAR CONTENTS: Mild hydrocele. Left- TESTIS: 2.3 x 3 x 3.9 cm. Heterogeneous echotexture without focal lesion. COLOR DOPPLER: Normal arterial flow present in the testicle with monophasic waveforms. EPIDIDYMIS: 7 x 7 x 9 mm. [No focal hyperemia. EXTRATESTICULAR CONTENTS: Trace hydrocele US/Testicular with Arterial Flow IMPRESSION: Vascular flow demonstrated to both testicles. Mildly heterogeneous testicles without focal mass. Small right epididymal cyst. Mild right hydrocele. Electronically Signed: Mirela Olson MD at 14:19 EDT ,
== END | disposition home or self-care (01) ==
PROVIDERS: PCP Nurse Practitioner Family; Referring Provider Nurse Practitioner Family; Visit Provider Nurse Practitioner Family
DX: R10.2 Pelvic and perineal pain (principal); N50.89 Other specified disorders of the male genital organs
CPT/HCPCS: 76870; 93976

== ENCOUNTER → 2023-11-17 | Outpatient (CLI) | payer MEDICAID, SELFPAY ==
[2023-11-17 12:21] LABS: Hematocrit 46.5 % (40-54); Hemoglobin 16.3 g/dL (13.0-16.5); Mean Corp Hgb Conc 35.1 g/dL (32-36); Mean Corpuscular Volume 97.1 fL (80-94); Mean Platelet Vol. 12.4 fl (6.2-12.0); Platelet Count 108 K/mm3 (150-450); RBC Distribution Width CV 12.8 % (11.6-14.6); RBC Distribution Width SD 45.7 fl (35.1-43.9); Red Blood Count 4.79 M/mm3 (4.6-6.2); White Blood Count 4.8 K/mm3 (4.4-11.0)
[2023-11-17 12:40] LABS: Microalbumin,Random Urine < 5.0 mg/L (NO RANGE EST.)
[2023-11-17 12:47] LABS: ALB/GLOB Ratio 1.2 RATIO (0.9-2.4); AST(SGOT) 70 U/L (15-37); Alanine Aminotransfer ALT/SGPT 112 U/L (16-61); Albumin, Serum 3.7 g/dL (3.2-5.0); Alkaline Phosphatase 149 U/L (45-117); Anion Gap 9 (5-15); BUN 10 mg/dL (7-18); BUN/Creat Ratio 9.9 RATIO (10-20); Calcium,Total 9.2 mg/dL (8.5-10.1); Chloride 100 mmol/L (98-107); Cholesterol 186 mg/dL (200); Creatinine, Serum 1.01 mg/dL (0.70-1.30); EST Glomerular Filtration Rate 81 mL/min (>60); Est Glom Filt Rate - Afr Amer 98 mL/min (>60); Globulin 3.1 g/dL (2.2-4.2); Glucose 362 mg/dL (74-106); High Density Lipoprotein 27 mg/dL; Potassium 3.7 mmol/L (3.5-5.1); Protein, Total 6.8 g/dL (6.4-8.2); Sodium Level 134 mmol/L (136-145); Thyroid Stim Hormone (TSH) 4.77 uIU/mL (0.358-3.74); Triglycerides 578 mg/dL
== END | disposition home or self-care (01) ==
LOC: LABSPEC 08:45
PROVIDERS: PCP Nurse Practitioner Family; Visit Provider Nurse Practitioner Family
DX: E11.42 Type 2 diabetes mellitus with diabetic polyneuropathy (principal); E78.5 Hyperlipidemia, unspecified; E03.9 Hypothyroidism, unspecified
CPT/HCPCS: 80053; 80061; 82043; 84443; 85027

== ENCOUNTER 2023-11-23 17:37 | Observation (INO) | payer MEDICAID, SELFPAY ==
[2023-11-23 17:37] VITALS: BP 137/87; PULSE 71; RESP 18; TEMP 36.8; O2SAT 98; BMI 43.2
[2023-11-23 17:59] VITALS: BP 136/79; PULSE 69; RESP 22; O2SAT 98
[2023-11-23 18:13] VITALS: BMI 36.8
--- NOTE | 2023-11-23 18:13 | CT_ITS ---
INDICATION: Neuro deficit, acute, stroke suspected EXAMINATION: CT BRAIN - CT Head Stroke Protocol W/O Contrast Injection TECHNIQUE: Multiple axial images were obtained of the head without intravenous contrast. The protocol utilizes one or more of the following dose reduction techniques: automated exposure control, adjustment of mA and/or kV according to patient size,and/or use of iterative reconstruction technique. IV Contrast dosage and agent: None. RADIATION DOSAGE (If Supplied By Facility): CTDIvol = ( ) mGy, DLP = ( 880.47 ) mGycm COMPARISON: FINDINGS: BRAIN PARENCHYMA: No intra- or extra-axial hemorrhage. No evidence of acute infarct. Mild periventricular white matter ischemic change. There is preservation of the salazar/white matter interface. Posterior fossa structures are unremarkable. CSF SPACES: Appropriate for age. No hydrocephalus. Basal cisterns are patent. CALVARIUM, SKULL BASE, PARANASAL SINUSES AND MASTOID AIR CELLS: Clear. No discrete lytic or blastic abnormalities. ORBITS: Both globes, extraocular muscles, optic nerves and retrobulbar fat appear unremarkable. CT/Brain/Head without Contrast IMPRESSION: Mild periventricular white matter ischemic change. No acute bleed. If concern for acute infarct MRI recommended. Electronically Signed: Coleman Shankar MD at 18:59 EDT ,
--- NOTE | 2023-11-23 18:13 | EKG12_ITS ---
Test Reason : CHEST PAIN Blood Pressure : / mmHG Vent. Rate : 069 BPM Atrial Rate : 069 BPM P-R Int : 170 ms QRS Dur : 152 ms QT Int : 428 ms P-R-T Axes : 063 070 045 degrees QTc Int : 458 ms Normal sinus rhythm Right bundle branch block Abnormal ECG Confirmed by Dmitriy Preston ([id number]), general expeditor NIKI DE LA O ([id number]) on 11/25/2023 11:33:15 AM Referred By: ONEYDA KAN Confirmed By:Dmitriy Preston
[2023-11-23 18:19] LABS: Bedside Glucose 311 mg/dL (74-106)
[2023-11-23 18:26] VITALS: BMI 43.2
[2023-11-23 18:34] LABS: Absolute Lymphocyte Count 2.34 X10^3/uL (0.83-4.51); Absolute Neutrophil Count 2.3 X10^3/uL (2.0-7.7); Basophil# 0.03 X10^3/uL; Basophil% 0.6 % (0-1); Eosinophil# 0.09 X10^3/uL; Eosinophils% 1.7 % (0-5); Hematocrit 47.3 % (40-54); Hemoglobin 16.6 g/dL (13.0-16.5); Lymphocyte # 2.34 X10^3/ul (0.83-4.51); Lymphocyte % 44.7 % (19-41); Mean Corp Hgb Conc 35.1 g/dL (32-36); Mean Corpuscular Hgb 34.2 pg (27.0-32.0); Mean Corpuscular Volume 97.5 fL (80-94); Mean Platelet Vol. 11.5 fl (6.2-12.0); Monocyte# 0.44 X10^3/uL; Monocyte% 8.4 % (0-10); NRBC Flagged by Analyzer 0 % (0-5); Neutrophil # 2.32 X10^3/uL (2.7-7.7); Neutrophil % 44.4 % (47-70); Platelet Count 119 K/mm3 (150-450); RBC Distribution Width CV 12.9 % (11.6-14.6); RBC Distribution Width SD 46.1 fl (35.1-43.9); Red Blood Count 4.85 M/mm3 (4.6-6.2); White Blood Count 5.2 K/mm3 (4.4-11.0)
--- NOTE | 2023-11-23 18:35 | RAD_ITS ---
STUDY: X-RAY CHEST REASON FOR EXAM: Male, 57 years old. Neuro deficit, acute, stroke suspected TECHNIQUE: AP portable COMPARISON: None. FINDINGS: The lungs are clear and expanded. There is no demonstrated pleural abnormality. Normal size heart. Normal mediastinum and darren. Normal visualized pulmonary arteries. Normal visualized aortic arch and descending thoracic aorta. Normal visualized thoracic spine. Normal visualized ribs, clavicles, and shoulders. There is no demonstrated abnormality of the visualized soft tissue structures of the upper abdomen. RAD/Chest 1 View IMPRESSION: Normal x-ray examination of the chest. Electronically Signed: Coleman Shankar MD at 19:00 EDT ,
[2023-11-23 18:39] LABS: International Normalized Ratio 1.1; Prothrombin Time (Protime)PT. 14.2 SECONDS (11.7-14.9)
[2023-11-23 18:40] LABS: Partial Thromboplast Time 32.1 Seconds (24.1-36.2)
[2023-11-23 18:46] LABS: Anion Gap 5 (5-15); BUN 7 mg/dL (7-18); Calcium,Total 8.6 mg/dL (8.5-10.1); Chloride 104 mmol/L (98-107); EST Glomerular Filtration Rate 82 mL/min (>60); Est Glom Filt Rate - Afr Amer 99 mL/min (>60); Estimated Creatinine Clearance 111.51 ml/min; Glucose 267 mg/dL (74-106); Potassium 3.6 mmol/L (3.5-5.1); Sodium Level 136 mmol/L (136-145); Troponin-I HS 4 pg/mL (3.0-78.0)
--- NOTE | 2023-11-23 18:50 | ED.VIS.STROK ---
HPI History of Present Illness Chief Complaint: Neuro S/Sx Detail of Chief Complaint: Facial numbness, facial droop and numbness left side Informant: patient Onset/Context/Timing Onset: Days (Onset approximately 10 days ago.) Context: Sudden Onset Timing: Continuous Quality and Location: Positive for Left Facial Droop, Left Face Parasthesia, Left Arm Parasthesia and Left Leg Parasthesia Onset: Approximately 10 days ago Current Severity: Mild Maximum Severity: Mild Worsened by: Nothing Relieved by: Nothing Associated Symptoms Associated Symptoms: Negative for Headache, Nausea, Vomiting or Chest Pain Narrative Narrative: Patient is a 57-year-old male with history of hyperlipidemia, stage II COPD by Gold classification, obstructive sleep apnea, hypertriglyceridemia, 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 This started approximately 10 days ago. He denies headache. He denies double vision, blurred vision loss of vision. He denies trouble with speech or swallowing. He denies wheat ears or decreased hearing. He denied weakness in his arms or legs and specifically the left side. He states his only symptom on the left side is altered sensation with respect to his upper and lower extremity. He does not wear dentures. The facial droop was noted to be new per his doctor and his significant other was in the room. He denies cardiac or respiratory symptoms. He does have history of atherosclerotic coronary disease with placement of stent March 2016. He also has history of fatty liver. Prior similar symptoms: No Recent Illness/Hospitalization: No [facility] Medical History Wears glasses No natural teeth Diabetes Thyroid disease High cholesterol Blackout History of GI bleed Smoker BiPAP (biphasic positive airway pressure) dependence Sleep apnea Shortness of breath on exertion Chronic cough History of edema Leg cramps History of stress test Cardiology follow-up encounter Elevated LFTs Back pain Dorsalgia of thoracolumbar region Patellofemoral arthritis of right knee Bilateral knee pain Situational syncope Chest pain, unspecified Type 2 diabetes mellitus Essential hypertension Pneumonia due to other streptococci Atherosclerosis of coronary artery of [place] heart without angina pectoris Right bundle-branch block Gastroesophageal reflux disease Hypertriglyceridemia Obstructive sleep apnea Body mass index (BMI) 35 or more Tobacco abuse COPD (chronic obstructive pulmonary disease) MASON (dyspnea on exertion) Morbid obesity due to excess calories Localized edema Long-term use of high-risk medication Hyperlipidemia Difficulty swallowing Stage 2 moderate COPD by GOLD classification Sinus drainage Home Medications ?Medication ?Instructions ?Recorded ?Last Taken ?Type albuterol sulfate 90 mcg/actuation 6.7 g IH PRN PRN Wheezing 12/06/14 Unknown History aerosol inhaler ergocalciferol (vitamin D2) 1,250 50,000 unit PO Q7D 12/06/14 Unknown History mcg (50,000 unit) capsule fluticasone propionate 50 1 spray NASAL DAILY 05/05/16 Unknown History mcg/actuation nasal spray,suspension aspirin 81 mg tablet,delayed 81 mg PO DAILY 08/11/19 Unknown History release duloxetine 60 mg capsule,delayed 60 mg PO DAILY 08/11/19 Unknown History release levothyroxine 50 mcg tablet 75 mcg PO DAILY 08/11/19 Unknown History losartan 50 mg tablet 25 mg PO QDAY 08/11/19 Unknown History mirtazapine 15 mg tablet 45 mg PO QHS 08/11/19 Unknown History multivitamin 1 cap PO DAILY 08/11/19 Unknown History nitroglycerin 0.4 mg sublingual 0.4 mg sublingual ONCE PRN chest 08/11/19 Unknown History tablet (Nitrostat) pain budesonide-formoterol HFA 160 2 puff inhalation BID #10.2 grams 12/05/19 Unknown Rx mcg-4.5 mcg/actuation aerosol inhaler clopidogrel 75 mg tablet 75 mg PO QDAY #90 tabs 12/29/19 Unknown Rx furosemide 40 mg tablet (Lasix) 60 mg PO DAILY 11/15/20 Unknown History metformin 1,000 mg tablet 1,000 mg PO BID 11/15/20 Unknown History isosorbide mononitrate 60 mg 30 mg (1/2 x 60 mg) PO BID #90 tabs 12/03/21 Unknown Rx tablet,extended release 24 hr gabapentin 400 mg capsule 800 mg PO TID 09/18/22 Unknown History empagliflozin 10 mg tablet 10 mg PO DAILY 10/20/22 Unknown History (Jardiance) omeprazole 40 mg capsule,delayed 40 mg PO DAILY 1 month #30 caps 06/05/23 Unknown Rx release rosuvastatin 20 mg tablet 20 mg PO QHS 1 month #30 tabs 06/05/23 Unknown Rx icosapent ethyl 1 gram capsule 2 g PO BID 06/30/23 Unknown History Allergy/AdvReac Type Severity Reaction Status Date / Time No Known Allergies Allergy Verified 11/23/23 17:40 Family History Father CVA (cerebral vascular accident) Brother CAD (coronary artery disease) Diabetes Mother COPD (chronic obstructive pulmonary disease) Sarcoidosis Surgical History S/P laparoscopic cholecystectomy H/O umbilical hernia repair History of coronary artery stent placement (~03/25/16) History of carpal tunnel surgery of right wrist History of left heart catheterization Social History household members: spouse current occupational status: disabled Smoking Status: Current every day smoker tobacco type: cigarettes Tobacco: How many years used: 30 second hand exposure: Yes alcohol intake: never substance use type: does not use caffeine: Yes Type: coffee Number of servings: 2 what type of physical activity do you participate in: none ROS ROS ED Constitutional Constitutional ED: Denies chills, fever(s), subjective, sweats or weakness Eyes Eyes: Denies blurry vision, change in vision or diplopia ENT ENT ED: Denies ear pain, rhinorrhea or sore throat Cardiovascular Cardiovascular: Denies chest pain, palpitations or racing heartbeat Respiratory/Chest Respiratory/Chest: Denies cough, dyspnea or dyspnea on exertion Gastrointestinal Gastrointestinal: Denies abdominal pain, nausea or vomiting Genitourinary Genitourinary ED: Denies dysuria, hematuria or urinary frequency Musculoskeletal Musculoskeletal: Denies arthralgias or myalgias Integumentary Denies rash Neurologic Neurologic: Reports paresthesias LUE and LLE; Denies headache(s) Psychiatric Psychiatric: Denies anxiety or depression Hematologic/Lymphatic Hematologic/Lymphatic: Denies easy bleeding or easy bruising EXAM Physical Exam Const Vital Signs: 11/23/23 17:37 11/23/23 17:59 11/23/23 18:26 Temperature 98.2 F Temperature Source Temporal Pulse Rate 71 69 Respiratory Rate 18 22 H Blood Pressure 137/87 H 136/79 H Blood Pressure Mean 103 98 Pulse Ox 98 98 Oxygen Delivery Method Room Air Room Air Room Air Positive well nourished and well developed General Appearance ED: well developed and NAD HEENT Reports moist mucous membranes atraumatic Eyes PERRL and EOMs intact bilaterally Eyes Narrative: There is no nystagmus. General Eye ED: Negative for pale conjunctiva or scleral icterus Neck no lymphadenopathy, supple and no JVD Chest Wall inspection of chest normal Resp normal respiratory effort and clear to auscultation bilaterally Cardio no murmurs Rate: regular rate Rhythm: regular rhythm Heart Sounds: S1 normal and S2 normal GI normal to inspection, nondistended, normoactive bowel sounds, soft to palpation, non-tender, non-distended and no masses Back/Spine no CVA tenderness Extremity normal to inspection Extremity Narrative: Patient has palpable distal pulses. General Extremety ED: Negative for deformity or tenderness General Extremity: Negative for deformity Neuro oriented x3, No CN's II-XII intact bilaterally and No no sensory deficits noted [place] Coma Scale: document GCS findings Spontaneous Obeys Commands Oriented 15 Sensorium / Orientation: alert Speech: speech normal Motor Exam: strength 5/5 throughout Psych mental status grossly normal Skin no wounds Lesions: no lesions Rashes: no rashes NIHSS NIHSS Initial: 1a Level of Consciousness: 0 1b LOC Questions (Score 2 if aphasic/stupor): 0 1c LOC Commands (Only score 1st attempt): 0 2 Best Gaze (If aphasic, use reflexive mvmts.): 0 3 Visual: 0 4 Facial Palsy: 1 5 Motor Arm Right (UN = amputation/fusion): 0 5 Motor Arm Left: 0 6 Motor Leg Right: 0 6 Motor Leg Left: 0 7 Limb ataxia (Only + if out of proportion): 0 8 Sensory (Aphasia/stupor=0 or 1, coma=2): 1 9 Best Language: 0 10 Dysarthria (mute, coma=2, intubated=UN): 0 11 Extinction and Inattention (only scored if +): 0 Total Score: 2 MDM MDM MDM Narrative Medical decision making narrative: Stroke order set was initiated. Patient does not have sparing of his forehead however he also complains of numbness in his arm and leg which is not consistent with Warner's palsy. Appropriate workup was undertaken. Blood sugar is elevated at 311. CBC reveals slightly concentrated hemoglobin. Basic metabolic panel is remarkable for the elevated glucose, 267 with normal CO2 anion gap. Lab Data Labs: Laboratory Results - last 24 hr 11/23/23 11/23/23 18:02 18:14 WBC 5.2 RBC 4.85 Hgb 16.6 H Hct 47.3 MCV 97.5 H MCH 34.2 H MCHC 35.1 RDW Std Deviation 46.1 H RDW Coeff of Autumn 12.9 Plt Count 119 L MPV 11.5 Immature Gran % (Auto) 0.200 Neut % (Auto) 44.4 L Lymph % (Auto) 44.7 H Collier % (Auto) 8.4 Eos % (Auto) 1.7 Baso % (Auto) 0.6 Absolute Neuts (auto) 2.3 Absolute Lymphs (auto) 2.34 Nucleated RBC % 0 PT 14.2 INR 1.1 APTT 32.1 Sodium 136 Potassium 3.6 Chloride 104 Carbon Dioxide 27.0 Anion Gap 5 BUN 7 Creatinine 1.00 Estim Creat Clear Calc 111.51 Est GFR (MDRD) Af Amer 99 Est GFR (MDRD) Non-Af 82 BUN/Creatinine Ratio 7.0 L Glucose 267 H Calcium 8.6 Troponin I High Sens 4 POC Glucose 311 H Radiography Chest X-Ray - ED: 1 View and Read by ED Physician (No acute abnormality. Cardiac silhouette size normal. Lung parenchyma normal. Hilum normal. Osseous trucks unremarkable.) Diagnostic Testing: Clinical Impression(s) from Imaging Studies Brain CT 11/23/23 18:13 IMPRESSION: Mild periventricular white matter ischemic change. No acute bleed. If concern for acute infarct MRI recommended. Electronically Signed: Coleman Shankar MD at 18:59 EDT , Chest X-Ray 11/23/23 18:35 IMPRESSION: Normal x-ray examination of the chest. Electronically Signed: Coleman Shankar MD at 19:00 EDT , CT of the head was reviewed by me. There is no evidence of intracranial bleed or obvious large stroke. Awaiting formal read by radiologist Management Discussion w/another healthcare provider: Hospitalist (Dr. Phillip Miller the evening hospitalist made aware. PCU observations stroke workup) Discharge Plan Triage Chief Complaint: Neuro S/Sx ED Provider: Ward Goldsmith Dx/Rx/DC Orders Clinical Impression: Facial droop due to acute stroke, Essential hypertension, Type 2 diabetes mellitus, Paresthesia of left upper and lower extremity Prescriptions: No Action losartan 50 mg tablet 25 mg PO QDAY aspirin 81 mg tablet,delayed release (DR/EC) 81 mg PO DAILY duloxetine 60 mg capsule,delayed release(DR/EC) 60 mg PO DAILY nitroglycerin [Nitrostat] 0.4 mg tablet, sublingual 0.4 mg SUBLINGUAL ONCE PRN (Reason: chest pain) Rx Instructions: as a single dose; administer 5-10 minutes before situation known to precipitate angina attack multivitamin Capsule 1 cap PO DAILY Jardiance 10 mg tablet 10 mg PO DAILY rosuvastatin 20 mg tablet 20 mg PO QHS 30 Days Qty: 30 3RF omeprazole 40 mg capsule,delayed release(DR/EC) 40 mg PO DAILY 30 Days Qty: 30 2RF ergocalciferol (vitamin D2) 50,000 UNIT capsule 50,000 unit PO Q7D albuterol sulfate 6.7 GM HFA aerosol inhaler 6.7 g IH PRN PRN (Reason: Wheezing) levothyroxine 50 mcg tablet 75 mcg PO DAILY mirtazapine 15 mg tablet 45 mg PO QHS fluticasone propionate 1 SPRAY spray,suspension 1 spray NASAL DAILY icosapent ethyl 1 gram capsule 2 g PO BID Patient Comments: TAKE 2 CAPSULES BY MOUTH TWICE DAILY WITH MEALS budesonide-formoterol 160-4.5 mcg/actuation HFA aerosol inhaler 2 puff INHALATION BID Qty: 10.2 11RF clopidogrel 75 mg tablet 75 mg PO QDAY Qty: 90 3RF metformin 1,000 mg tablet 1,000 mg PO BID furosemide [Lasix] 40 mg tablet 60 mg PO DAILY isosorbide mononitrate 60 mg tablet extended release 24 hr 30 mg PO BID Qty: 90 3RF gabapentin 400 mg capsule 800 mg PO TID Primary Care Provider: Viola Gunderson Referrals: Viola Gunderson, MELTING [employer]PERATOR-C [Primary Care Provider] - Print Language: Bangladeshi Disposition Disposition: Acute Care Hospital [facility]
--- NOTE | 2023-11-23 19:26 | HP.PCM_ITS ---
HPI - General General Date of Admission: 11/23/23 Date of Service: 11/23/23 Chief Complaint: Left-sided facial droop, left arm paresthesia HPI Narrative ONELIA REED, is a 57 M who presents to the emergency room with chief complaint of left-sided facial droop and left arm numbness and tingling. The patient reports onset of symptoms began approximately 10 days ago and he says he did not seek medical attention at that time because he is stubborn . Patient denies any chest pain, shortness of breath, fevers or chills, dysphagia or difficulty in speech or other neurologic complaints at this time. Patient states he was told by his physician to come to the emergency room to find out what happened. CT scan is negative for acute stroke. Patient does have significant past medical history of COPD, diabetes, obstructive sleep apnea and obesity. Will be admitted to the progressive care unit for observation and MRI MRA head and neck in the morning. [facility] Medical History Wears glasses No natural teeth Diabetes Thyroid disease High cholesterol Blackout History of GI bleed Smoker BiPAP (biphasic positive airway pressure) dependence Sleep apnea Shortness of breath on exertion Chronic cough History of edema Leg cramps History of stress test Cardiology follow-up encounter Elevated LFTs Back pain Dorsalgia of thoracolumbar region Patellofemoral arthritis of right knee Bilateral knee pain Situational syncope Chest pain, unspecified Type 2 diabetes mellitus Essential hypertension Pneumonia due to other streptococci Atherosclerosis of coronary artery of [place] heart without angina pectoris Right bundle-branch block Gastroesophageal reflux disease Hypertriglyceridemia Obstructive sleep apnea Body mass index (BMI) 35 or more Tobacco abuse COPD (chronic obstructive pulmonary disease) MASON (dyspnea on exertion) Morbid obesity due to excess calories Localized edema Long-term use of high-risk medication Hyperlipidemia Difficulty swallowing Stage 2 moderate COPD by GOLD classification Sinus drainage Home Medications ?Medication ?Instructions ?Recorded ?Last Taken ?Type albuterol sulfate 90 mcg/actuation 6.7 g IH PRN PRN Wheezing 12/06/14 Unknown History aerosol inhaler ergocalciferol (vitamin D2) 1,250 50,000 unit PO Q7D 12/06/14 Unknown History mcg (50,000 unit) capsule fluticasone propionate 50 1 spray NASAL DAILY 05/05/16 Unknown History mcg/actuation nasal spray,suspension aspirin 81 mg tablet,delayed 81 mg PO DAILY 08/11/19 Unknown History release duloxetine 60 mg capsule,delayed 60 mg PO DAILY 08/11/19 Unknown History release levothyroxine 50 mcg tablet 75 mcg PO DAILY 08/11/19 Unknown History losartan 50 mg tablet 25 mg PO QDAY 08/11/19 Unknown History mirtazapine 15 mg tablet 45 mg PO QHS 08/11/19 Unknown History multivitamin 1 cap PO DAILY 08/11/19 Unknown History nitroglycerin 0.4 mg sublingual 0.4 mg sublingual ONCE PRN chest 08/11/19 Unknown History tablet (Nitrostat) pain budesonide-formoterol HFA 160 2 puff inhalation BID #10.2 grams 12/05/19 Unknown Rx mcg-4.5 mcg/actuation aerosol inhaler clopidogrel 75 mg tablet 75 mg PO QDAY #90 tabs 12/29/19 Unknown Rx furosemide 40 mg tablet (Lasix) 60 mg PO DAILY 11/15/20 Unknown History metformin 1,000 mg tablet 1,000 mg PO BID 11/15/20 Unknown History isosorbide mononitrate 60 mg 30 mg (1/2 x 60 mg) PO BID #90 tabs 12/03/21 Unknown Rx tablet,extended release 24 hr gabapentin 400 mg capsule 800 mg PO TID 09/18/22 Unknown History empagliflozin 10 mg tablet 10 mg PO DAILY 10/20/22 Unknown History (Jardiance) omeprazole 40 mg capsule,delayed 40 mg PO DAILY 1 month #30 caps 06/05/23 Unknown Rx release rosuvastatin 20 mg tablet 20 mg PO QHS 1 month #30 tabs 06/05/23 Unknown Rx icosapent ethyl 1 gram capsule 2 g PO BID 06/30/23 Unknown History Allergy/AdvReac Type Severity Reaction Status Date / Time No Known Allergies Allergy Verified 11/23/23 17:40 Family History Father CVA (cerebral vascular accident) Brother CAD (coronary artery disease) Diabetes Mother COPD (chronic obstructive pulmonary disease) Sarcoidosis Surgical History S/P laparoscopic cholecystectomy H/O umbilical hernia repair History of coronary artery stent placement (~03/25/16) History of carpal tunnel surgery of right wrist History of left heart catheterization Social History household members: spouse current occupational status: disabled Smoking Status: Current every day smoker tobacco type: cigarettes Tobacco: How many years used: 30 second hand exposure: Yes alcohol intake: never substance use type: does not use caffeine: Yes Type: coffee Number of servings: 2 what type of physical activity do you participate in: none ROS Constitutional Constitutional: Denies chills, fever(s) or weakness Eyes Eyes: Denies blurry vision or change in vision ENT HEENT: Denies abnormal hearing, dysphagia, headache(s), hearing loss, loss taste/smell or throat swelling Cardiovascular Cardiovascular: Denies chest pain or edema Respiratory/Chest Respiratory/Chest: Denies cough or shortness of breath at rest Gastrointestinal Gastrointestinal: Denies abdominal pain, diarrhea, nausea or vomiting Genitourinary Genitourinary: Denies dysuria Musculoskeletal Musculoskeletal: Denies back pain Integumentary Integumentary: Denies dry skin Neurologic Neurologic: Reports numbness and tingling; Denies abnormal gait, abnormal speech, lack of coordination or weakness Psychiatric Psychiatric: Denies anxiety Vital Signs Vital Signs Vital Signs: 11/23/23 17:37 11/23/23 17:59 11/23/23 18:26 Temperature 98.2 F Temperature Source Temporal Pulse Rate 71 69 Respiratory Rate 18 22 H Blood Pressure 137/87 H 136/79 H Blood Pressure Mean 103 98 Pulse Ox 98 98 Oxygen Delivery Method Room Air Room Air Room Air Weight Weight: 293 lb 0.015 oz Body Mass Index (BMI) 43.2 Physical Exam Const oriented x3 General Appearance: cooperative and well developed HEENT head/scalp atraumatic Eyes PERRL and EOMs intact bilaterally Neck no lymphadenopathy and supple General: trachea midline Lymph Lymphatic: no lymphadenopathy noted Resp normal respiratory effort, normal air movement and clear to auscultation bilaterally Cardio regular rate, regular rhythm, S1 normal heart sound, S2 normal heart sound and no murmurs GI normal to inspection, nondistended, normoactive bowel sounds, soft to palpation, non-tender and non-distended Extremity normal capillary refill General Extremity: Negative for edema Skin General Skin Exam: Negative for no breakdown Neuro Neuro Narrative: Mild left facial droop present, otherwise cranial nerves are are intact Coordination / Balance: [id number] test normal and [id number] test normal Speech: speech normal Motor Exam: strength 5/5 throughout Psych thought process normal, cooperative and affect normal Results Lab / Micro Data 11/23/23 18:14 11/23/23 18:14 Labs: Laboratory Results - last 24 hr 11/23/23 18:02: POC Glucose 311 H 11/23/23 18:14: WBC 5.2, RBC 4.85, Hgb 16.6 H, Hct 47.3, MCV 97.5 H, MCH 34.2 H, MCHC 35.1, RDW Std Deviation 46.1 H, RDW Coeff of Autumn 12.9, Plt Count 119 L, MPV 11.5, Immature Gran % (Auto) 0.200, Neut % (Auto) 44.4 L, Lymph % (Auto) 44.7 H, [place] % (Auto) 8.4, Eos % (Auto) 1.7, Baso % (Auto) 0.6, Absolute Neuts (auto) 2.3, Absolute Lymphs (auto) 2.34, Nucleated RBC % 0, PT 14.2, INR 1.1, APTT 32.1, Sodium 136, Potassium 3.6, Chloride 104, Carbon Dioxide 27.0, Anion Gap 5, BUN 7, Creatinine 1.00, Estim Creat Clear Calc 111.51, Est GFR (MDRD) Af Amer 99, Est GFR (MDRD) Non-Af 82, BUN/Creatinine Ratio 7.0 L, Glucose 267 H, Calcium 8.6, Troponin I High Sens 4 Imaging Radiology Impression Brain CT 11/23/23 18:13 IMPRESSION: Mild periventricular white matter ischemic change. No acute bleed. If concern for acute infarct MRI recommended. Electronically Signed: Coleman Shankar MD at 18:59 EDT , Chest X-Ray 11/23/23 18:35 IMPRESSION: Normal x-ray examination of the chest. Electronically Signed: Coleman Shankar MD at 19:00 EDT , Assessment & Plan Assessment/Plan (1) Paresthesia of left upper and lower extremity: (2) Type 2 diabetes mellitus: (3) Facial droop: (4) Type 2 diabetes mellitus: (5) Essential hypertension: (6) History of coronary artery stent placement: (7) COPD (chronic obstructive pulmonary disease): QUALIFIERS: COPD type: unspecified COPD Qualified Code(s): J44.9 - Chronic obstructive pulmonary disease, unspecified (8) Morbid obesity due to excess calories: (9) Hyperlipidemia: QUALIFIERS: Hyperlipidemia type: unspecified Qualified Code(s): E 78.5 - Hyperlipidemia, unspecified PLAN: Plan 1 left-sided facial droop with left arm paresthesia?admit patient to progressive care unit overnight for observation, order MRI MRA head and neck to be done in the morning. Neurochecks per routine protocol, will add aspirin as well. Will decide disposition in the morning based on MRI results. 2. Hyperlipidemia?continue statin medication 3. COPD?continue routine inhalers 4. Diabetes?continue routine oral hypoglycemic medications 5. Hypothyroidism?continue Synthroid 6. DVT prophylaxis?LMWH Charges/Coding Visit Charges OBSV E&M: 34243 Observ/hosp same date L2
[2023-11-23 19:37] VITALS: BP 118/72; PULSE 60; RESP 23; O2SAT 92
[2023-11-23 20:14] VITALS: BP 118/72; PULSE 60; RESP 23; TEMP 36.2; O2SAT 92
[2023-11-23 20:32] VITALS: BP 116/86; PULSE 60; RESP 16; TEMP 36.7; O2SAT 93; BMI 36.8
[2023-11-23 21:37] LABS: Bedside Glucose 217 mg/dL (74-106)
[2023-11-23 22:31] VITALS: O2SAT 90
[2023-11-23 23:47] VITALS: BMI 36.8
[2023-11-23 23:48] VITALS: BMI 36.8
[2023-11-24 02:00] VITALS: BP 128/78; PULSE 56; RESP 18; TEMP 35.6; O2SAT 93
--- NOTE | 2023-11-24 05:55 | MRI_ITS ---
STUDY: MRA OF THE HEAD WITHOUT CONTRAST REASON FOR EXAM: Male, 57 years old. Stroke, FACIAL DROOP, L SIDED NUMBNESS TECHNIQUE: 3-D [id number] (TOF) imaging was performed with MIPs. The study was performed unenhanced. COMPARISON: None. FINDINGS: Normal bilateral petrous carotid arteries. Normal right cavernous carotid artery with a normal supraclinoid bifurcation. Normal left cavernous carotid artery with a normal supraclinoid bifurcation. Normal right A1 segments of the anterior cerebral artery. Normal left A1 segments of the anterior cerebral artery. Normal intact anterior communicating artery (ACOM). Normal bilateral A2 segments of the anterior cerebral arteries. Normal right M1 and M2 segments of the middle cerebral arteries, with a normal M1 bifurcation. Normal left M1 and M2 segments of the middle cerebral arteries, with a normal M1 bifurcation. No visible right posterior communicating artery (PCOM). Normal left posterior communicating artery (PCOM). Normal bilateral vertebral arteries. Normal basilar artery with a normal basilar bifurcation. The visualized bilateral superior cerebellar (SCA) arteries are normal. Normal bilateral P1, P2 and visualized P3 segments of the posterior cerebral arteries. There is no demonstrated aneurysm of the [place]. There is no major vessel occlusion or hemodynamically significant stenosis. MRI/MRA Head ONLY without Contrast IMPRESSION: Normal MRA of the head Electronically Signed: Manav Infante MD at 10:58 EDT ,
--- NOTE | 2023-11-24 05:55 | MRI_ITS ---
STUDY: MRA NECK WITH AND WITHOUT CONTRAST REASON FOR EXAM: Male, 57 years old. Stroke, FACIAL DROOP, L SIDED NUMBNESS TECHNIQUE: 3-D [id number] (TOF) imaging was performed in an 1.5 T MRI scanner. 23 CC IV CLARISCAN was administered for the contrast enhanced images. COMPARISON: None. FINDINGS: RIGHT CAROTID ARTERIES: Normal right common carotid artery (CCA). Normal right carotid bulb. Normal origin of the right internal carotid (ICA) artery without a hemodynamically significant stenosis. Normal visualized cervical portion of the right internal carotid artery. Normal origin of the right external carotid artery (ECA). LEFT CAROTID ARTERIES: Normal left common carotid artery (CCA). Normal left carotid bulb. Normal origin of the left internal carotid (ICA) artery without a hemodynamically significant stenosis. Normal visualized cervical portion of the left internal carotid artery. Normal origin of the left external carotid artery (ECA). VERTEBRAL ARTERIES: Normal antegrade flow within the bilateral vertebral artery without a hemodynamically significant stenosis. They are codominant. AORTIC ARCH: Normal aortic arch and origins of the great vessels. No suspicious stenosis of the subclavian origins of both vertebral arteries. MRI/MRA Neck WITH and W/O Contrast IMPRESSION: 1. Normal bilateral cervical carotid and vertebral arteries. 2. Normal aortic arch and origins of the great vessels. Electronically Signed: Manav Infante MD at 10:55 EDT ,
--- NOTE | 2023-11-24 05:55 | MRI_ITS ---
HISTORY: stroke, FACIAL DROOP, L SIDED NUMBNESS. TECHNIQUE: Multiplanar and multisequence MR images of the brain were obtained before and after the intravenous administration of 23 cc Chantell scan. 297 images. COMPARISON: CT prior day. FINDINGS: BRAIN PARENCHYMA: Very mild periventricular white matter changes. No abnormal focus of restricted diffusion. No acute intracranial hemorrhage identified. No enhancing lesion. CSF SPACES: Cerebral ventricles, cortical sulci, and other extra-axial CSF spaces within normal limits in size for age. No significant midline shift or other mass effect.No extra-axial fluid collection. VASCULAR SYSTEM: Major intracranial flow voids are maintained. PARANASAL SINUSES AND MASTOID AIR CELLS: No significant air fluid levels. Small retention cyst in the left nasopharynx. ORBITS: Symmetric contents. MRI/Brain W/WO Contrast IMPRESSION: No evidence for acute infarct or enhancing intracranial mass. Very mild chronic white matter changes. Electronically Signed: Mirela Olson MD at 12:14 EDT ,
[2023-11-24 06:00] VITALS: BP 125/77; PULSE 55; RESP 18; TEMP 35.6; O2SAT 92
[2023-11-24 07:11] LABS: Bedside Glucose 187 mg/dL (74-106)
[2023-11-24 07:11] LABS: Bedside Glucose 170 mg/dL (74-106)
[2023-11-24 07:33] VITALS: PULSE 74; RESP 20; O2SAT 93
[2023-11-24] MEDS: Albuterol 2.5 MG/3 ML VIAL.NEB. INHALATION ×2 (07:33→13:11)
[2023-11-24] MEDS: Budesonide Respules 0.5 MG/2 ML AMPUL.NEB. INHALATION (07:33)
[2023-11-24 07:46] LABS: Cholesterol 161 mg/dL (200); High Density Lipoprotein 34 mg/dL; Triglycerides 306 mg/dL; Very Low Density Lipoprotein 61 mg/dL (5-40)
--- NOTE | 2023-11-24 07:48 | ECHOCS_ITS ---
Reason For Study: TIA/CVA Procedure This was a 2D Doppler, Color Flow transthoracic echocardiogram. The study was technically difficult. Contrast injection was performed. Exam performed portable in patient room. Left Ventricle Normal size and thickness. The left ventricular ejection fraction is 65 %. Normal diastology for age. Right Ventricle Normal right ventricle. Atria The left and right atria are normal. Bubble contrast study is negative for PFO/ASD. Mitral Valve Trivial mitral valve insufficiency. Tricuspid Valve Trivial tricuspid valve insufficiency. Right ventricular systolic pressure estimated to be 35 mmHg. Aortic Valve Trisinus/trileaflet aortic valve. Pulmonic Valve The pulmonic valve is not well visualized. Great Vessels The aortic root is not well visualized. Pericardium/Pleural No pericardial effusion. Medication Diluted definity 2ml given slow IV push to enhance endocardial definition. Performed a rapid injection of agitated mix of 9 cc saline and 1cc air to assess for atrial septal defect. MMode/2D Measurements & Calculations LVIDd: 5.0 cm IVSd: 1.1 cm LA dimension: 3.8 cm LVIDs: 3.8 cm LVPWd: 1.1 cm RVDd: 3.9 cm FS: 24.3 % LAV(MOD-bp): 60.3 ml LVAd ap4: 29.3 cm2 SV(MOD-sp4): 62.9 ml LAV(MOD-bp) Indexed: 26.6 ml/m2 LVLd ap4: 7.6 cm LAV(MOD-sp2): 64.3 ml EDV(MOD-sp4): 93.4 ml LAV(MOD-sp4): 55.2 ml EDV(sp4-el): 96.1 ml LVAs ap4: 14.5 cm2 LVLs ap4: 5.6 cm ESV(MOD-sp4): 30.5 ml ESV(sp4-el): 31.6 ml EF(MOD-sp4): 67.4 % EF(sp4-el): 67.1 % SV(sp4-el): 64.5 ml LA A4 area: 20.7 cm2 RA A4 area: 19.0 cm2 TAPSE: 1.7 cm Time Measurements MV dec time: 0.26 sec Doppler Measurements & Calculations MV E max mayco: 111.0 cm/sec Lat Peak E' Mayco: 10.7 cm/sec Med Peak E' Mayco: 11.0 cm/sec MV A max mayco: 105.1 cm/sec E/E' lat: 10.4 E/E' med: 10.1 MV E/A: 1.1 MV V2 max: 127.5 cm/sec MV P1/2t max mayco: 129.6 cm/sec Ao V2 max: 188.3 cm/sec MV max P.5 mmHg MV P1/2t: 86.6 msec Ao max P.2 mmHg MV V2 mean: 66.4 cm/sec MV mean P.2 mmHg MV dec slope: 438.3 cm/sec2 MV V2 VTI: 49.2 cm MVA(P1/2t): 2.5 cm2 LV V1 max: 145.0 cm/sec PA V2 max: 95.1 cm/sec TR max mayco: 275.2 cm/sec LV V1 max P.4 mmHg TR max P.3 mmHg ECHO/Echo Complete W/ Contrast Interpretation Summary The study was technically difficult. The left ventricular ejection fraction is 65 %. Bubble contrast study is negative for PFO/ASD. Ordering Physician: Angeles Brewer Performed By: Mazin Wyman RCS
[2023-11-24 09:15] VITALS: BP 135/75; PULSE 55; RESP 18; TEMP 36.7; O2SAT 92
[2023-11-24] MEDS: Isosorbide Mononitrate 30 MG Tablet PO (11:25)
[2023-11-24] MEDS: Furosemide 20 MG Tablet 60 MG PO (11:25)
[2023-11-24] MEDS: Pantoprazole Sodium 40 MG Tablet PO (11:25)
--- NOTE | 2023-11-24 11:25 | NURSING ---
Gave morning medications at this time with speech therapy present in room
[2023-11-24] MEDS: DULoxetine Hcl 60 MG Capsule PO (11:26)
[2023-11-24] MEDS: Empagliflozin 10 MG Tablet PO (11:26)
[2023-11-24] MEDS: Aspirin E.C. 81 MG Tablet PO (11:26)
[2023-11-24] MEDS: Multivitamins,Therapeutic Tablet 1 TABLET PO (11:26)
[2023-11-24] MEDS: Clopidogrel Bisulfate 75 MG Tablet PO (11:26)
[2023-11-24] MEDS: Losartan Potassium 25 MG Tablet PO (11:27)
[2023-11-24] MEDS: Enoxaparin 40 MG/0.4 ML Syringe SC (11:30)
[2023-11-24] MEDS: Morphine 2 MG/ML Syringe IV (11:30)
[2023-11-24] MEDS: 0.9% Saline Lock 10 ML Syringe IV (11:30)
--- NOTE | 2023-11-24 11:53 | CON.PCM.NE_ITS ---
Assessment and Plan: Stroke Assessment/Plan ONELIA REED is a 57 M with a history of DM2, CANDELARIA on CPAP, HTN, HLD, COPD, tobacco who presents for evaluation of left facial droop, left sided numbness Neurological examination shows left facial droop (LMN type) and left sided numbness. Neuroimaging shows no acute stroke on MRI Brain. MRA : negative, Ef 65%. Suspect small stroke as he still reports numbness, residual facial droop. He is on ASA, plavix and compliant with it. Not a TNK or IR candidate. 1. Continue Asa, plavix - home meds 2. HTN: Aim normotension. 3. HLD: Statin to keep LDL <70 4. DM2: Aggressive control of BG. Please obtain HbA1C level 5. CANDELARIA: CPAP 6. Tobacco use cessation recommended. Stroke education provided. PT, OT , speech, swallow evaluation thanks for consult. Spent 71 minutes in evaluation of the patient. HPI Consult Data Date of Consult: 11/24/23 HPI Narrative HPI Narrative: ONELIA REED, is a 57 M with PMH of DM2, CANDELARIA on CPAP, HLD, COPD, tobacco use, who presents to the emergency room with chief complaint of left-sided facial droop and left arm numbness and tingling. The patient reports onset of symptoms began approximately 10 days ago and he says he did not seek medical attention. He feels his symptoms are getting better but has residual numbness of left face, arm and leg. Patient denies any chest pain, shortness of breath, fevers or chills, dysphagia or difficulty in speech or other neurologic complaints at this time. CT scan is negative for acute stroke. Patient does have significant past medical history of COPD, diabetes, obstructive sleep apnea and obesity. He continues to smoke [facility] Medical History Wears glasses No natural teeth Diabetes Thyroid disease High cholesterol Blackout History of GI bleed Smoker BiPAP (biphasic positive airway pressure) dependence Sleep apnea Shortness of breath on exertion Chronic cough History of edema Leg cramps History of stress test Cardiology follow-up encounter Elevated LFTs Back pain Dorsalgia of thoracolumbar region Patellofemoral arthritis of right knee Bilateral knee pain Situational syncope Chest pain, unspecified Type 2 diabetes mellitus Essential hypertension Pneumonia due to other streptococci Atherosclerosis of coronary artery of [place] heart without angina pectoris Right bundle-branch block Gastroesophageal reflux disease Hypertriglyceridemia Obstructive sleep apnea Body mass index (BMI) 35 or more Tobacco abuse COPD (chronic obstructive pulmonary disease) MASON (dyspnea on exertion) Morbid obesity due to excess calories Localized edema Long-term use of high-risk medication Hyperlipidemia Difficulty swallowing Stage 2 moderate COPD by GOLD classification Sinus drainage Home Medications ?Medication ?Instructions ?Recorded ?Last Taken ?Type albuterol sulfate 90 mcg/actuation 6.7 g IH PRN PRN Wheezing 12/06/14 Unknown History aerosol inhaler ergocalciferol (vitamin D2) 1,250 50,000 unit PO Q7D 12/06/14 Unknown History mcg (50,000 unit) capsule fluticasone propionate 50 1 spray NASAL DAILY 05/05/16 Unknown History mcg/actuation nasal spray,suspension aspirin 81 mg tablet,delayed 81 mg PO DAILY 08/11/19 Unknown History release duloxetine 60 mg capsule,delayed 60 mg PO DAILY 08/11/19 Unknown History release levothyroxine 50 mcg tablet 75 mcg PO DAILY 08/11/19 Unknown History losartan 50 mg tablet 25 mg PO QDAY 08/11/19 Unknown History mirtazapine 15 mg tablet 45 mg PO QHS 08/11/19 Unknown History multivitamin 1 cap PO DAILY 08/11/19 Unknown History nitroglycerin 0.4 mg sublingual 0.4 mg sublingual ONCE PRN chest 08/11/19 Unknown History tablet (Nitrostat) pain budesonide-formoterol HFA 160 2 puff inhalation BID #10.2 grams 12/05/19 Unknown Rx mcg-4.5 mcg/actuation aerosol inhaler clopidogrel 75 mg tablet 75 mg PO QDAY #90 tabs 12/29/19 Unknown Rx furosemide 40 mg tablet (Lasix) 60 mg PO DAILY 11/15/20 Unknown History metformin 1,000 mg tablet 1,000 mg PO BID 11/15/20 Unknown History isosorbide mononitrate 60 mg 30 mg (1/2 x 60 mg) PO BID #90 tabs 12/03/21 Unknown Rx tablet,extended release 24 hr gabapentin 400 mg capsule 800 mg PO TID 09/18/22 Unknown History empagliflozin 10 mg tablet 10 mg PO DAILY 10/20/22 Unknown History (Jardiance) omeprazole 40 mg capsule,delayed 40 mg PO DAILY 1 month #30 caps 06/05/23 Unknown Rx release rosuvastatin 20 mg tablet 20 mg PO QHS 1 month #30 tabs 06/05/23 Unknown Rx icosapent ethyl 1 gram capsule 2 g PO BID 06/30/23 Unknown History Allergy/AdvReac Type Severity Reaction Status Date / Time No Known Allergies Allergy Verified 11/23/23 17:40 Family History Father CVA (cerebral vascular accident) Brother CAD (coronary artery disease) Diabetes Mother COPD (chronic obstructive pulmonary disease) Sarcoidosis Surgical History S/P laparoscopic cholecystectomy H/O umbilical hernia repair History of coronary artery stent placement (~03/25/16) History of carpal tunnel surgery of right wrist History of left heart catheterization Social History household members: spouse current occupational status: disabled Smoking Status: Current every day smoker tobacco type: cigarettes Tobacco: How many years used: 30 second hand exposure: Yes alcohol intake: never substance use type: does not use caffeine: Yes Type: coffee Number of servings: 2 what type of physical activity do you participate in: none Vital Signs Vital Signs Vital Signs: 11/23/23 17:37 11/23/23 17:59 11/23/23 18:26 Temperature 98.2 F Temperature Source Temporal Pulse Rate 71 69 Pulse Strength Respiratory Rate 18 22 H Respiratory Pattern Blood Pressure 137/87 H 136/79 H Blood Pressure Mean 103 98 Blood Pressure Source Blood Pressure Position Blood Pressure Location Pulse Ox 98 98 Oxygen Delivery Method Room Air Room Air Room Air 11/23/23 19:37 11/23/23 20:14 11/23/23 20:32 Temperature 97.1 F L 98.0 F Temperature Source Oral Pulse Rate 60 60 60 Pulse Strength Respiratory Rate 23 H 23 H 16 Respiratory Pattern Blood Pressure 118/72 118/72 116/86 H Blood Pressure Mean 87 87 96 Blood Pressure Source Monitor Blood Pressure Position Supine Blood Pressure Location Right Forearm Pulse Ox 92 92 93 Oxygen Delivery Method Room Air Room Air 11/23/23 22:00 11/23/23 22:31 11/24/23 02:00 Temperature 96.0 F L Temperature Source Temporal Pulse Rate 56 L Pulse Strength Weak (1+) Respiratory Rate 18 Respiratory Pattern Blood Pressure 128/78 H Blood Pressure Mean 94 Blood Pressure Source Monitor Blood Pressure Position Supine Blood Pressure Location Right Forearm Pulse Ox 90 93 Oxygen Delivery Method Room Air Room Air 11/24/23 06:00 11/24/23 07:33 11/24/23 07:33 Temperature 96.1 F L Temperature Source Temporal Pulse Rate 55 L 74 Pulse Strength Respiratory Rate 18 20 H Respiratory Pattern Normal Blood Pressure 125/77 H Blood Pressure Mean 93 Blood Pressure Source Blood Pressure Position Blood Pressure Location Pulse Ox 92 93 Oxygen Delivery Method Room Air Room Air 11/24/23 08:10 11/24/23 08:10 11/24/23 09:15 Temperature 98.1 F Temperature Source Oral Pulse Rate 55 L Pulse Strength Weak (1+) Respiratory Rate 18 Respiratory Pattern Blood Pressure 135/75 H Blood Pressure Mean 95 Blood Pressure Source Monitor Blood Pressure Position Semi-Fowlers Blood Pressure Location Right Forearm Pulse Ox 92 Oxygen Delivery Method Room Air Room Air Weight Weight: 113.3 kg Body Mass Index (BMI) 36.8 EEG Results Procedure Details EEG Procedure Details: ONELIA REED is a 57 year old M with a past medical history of , who presents for evaluation of Electroencephalogram on DATE at TIME NIHSS NIHSS Nursing Documentation NIHSS Nursing Documentation: NIHSS: Ischemic Stroke/TIA Start: 11/23/23 20:31 Text: For PCU Patients: NIH and Neuro Check every 4 Status: Active hours, PRN and with change in RN caregiver. Freq: [id number] Protocol: Activity Type Activity Date Activity User E-sign Co-sign Detail Recorded Client Recorded Date Recorded By Document 11/24/23 09:15 [facility] desktop 11/24/23 09:37 AMG 11/24/23 09:15 NIH Stroke Scale [NIHSS] A score of 0 is normal or asymptomatic . Total possible score is 42. Inpatient: RN or Physician to activate a stroke alert for onset of new stroke symptoms or with NIHSS increase >/= 3 points. Following change in neurological status, NIHSS will be performed per physician order or more frequently PRN. -1a. Level of Consciousness Alert; keenly responsive -1b. LOC Questions Answers BOTH questions correctly. -1c. LOC Commands Performs both tasks correctly . -2. Best Gaze Partial gaze palsy; -3. Visual No visual loss -4. Facial Palsy Partial paralysis ( total or near- total paralysis of lower face) -5a. Left Arm No drift; arm holds 90 (or 45 ) degrees for full 10 seconds -5b. Right Arm No drift; arm holds 90 (or 45 ) degrees for full 10 seconds -6a. Left Leg No drift; leg holds 30-degree position for full 5 seconds -6b. Right Leg No drift; leg holds 30-degree position for full 5 seconds -7. Limb Ataxia Absent -8. Sensory Mild-to- moderate sensory loss; -9. Best Language No aphasia; normal -10. Dysarthria Normal -11. Extinction and Inattention No abnormality -Total 4 Query Text:A score of 0 is normal or asymptomatic. Total possible score is 42 . ED: Notify Physician for NIHSS increase by > / = 3 points. Inpatient: RN or Physician to activate a stroke alert for NIHSS increase of > / = 3 points. Coma Scale [Assess] -Eye Opening Spontaneous -Motor Obeys Commands -Verbal Oriented [Total] -Coma Scale Total 15 NIHSS 1a. Level of Consciousness: Alert; keenly responsive 1b. LOC Questions: Answers BOTH questions correctly. 1c. LOC Commands: Performs both tasks correctly. 2. Best Gaze: Normal 3. Visual: No visual loss 4. Facial Palsy: Complete paralysis of one or both sides 5a. Left Arm: No drift; arm holds 90 (or 45) degrees for full 10 seconds 5b. Right Arm: No drift; arm holds 90 (or 45) degrees for full 10 seconds 6a. Left Leg: No drift; leg holds 30-degree position for full 5 seconds 6b. Right Leg: No drift; leg holds 30-degree position for full 5 seconds 7. Limb Ataxia: Absent 8. Sensory: [id number] sensory loss; 9. Best Language: No aphasia; normal 10. Dysarthria: Normal 11. Extinction and Inattention: No abnormality Total: 4 Physical Exam Const alert, oriented x3 and no apparent distress HEENT normocephalic and head/scalp atraumatic Eyes EOMs intact bilaterally Resp normal respiratory effort Neuro Neuro Narrative: Awake, alert, oriented X3 Cranial nerves: Left LMN facial weakness Power 5/5 Sensation: Decreased on left side No ataxia Lab / Micro Data 11/23/23 18:14 11/23/23 18:14 Labs: Laboratory Results - last 24 hr 11/23/23 18:02: POC Glucose 311 H 11/23/23 18:14: WBC 5.2, RBC 4.85, Hgb 16.6 H, Hct 47.3, MCV 97.5 H, MCH 34.2 H, MCHC 35.1, RDW Std Deviation 46.1 H, RDW Coeff of Autumn 12.9, Plt Count 119 L, MPV 11.5, Immature Gran % (Auto) 0.200, Neut % (Auto) 44.4 L, Lymph % (Auto) 44.7 H, [place] % (Auto) 8.4, Eos % (Auto) 1.7, Baso % (Auto) 0.6, Absolute Neuts (auto) 2.3, Absolute Lymphs (auto) 2.34, Nucleated RBC % 0, PT 14.2, INR 1.1, APTT 32.1, Sodium 136, Potassium 3.6, Chloride 104, Carbon Dioxide 27.0, Anion Gap 5, BUN 7, Creatinine 1.00, Estim Creat Clear Calc 111.51, Est GFR (MDRD) Af Amer 99, Est GFR (MDRD) Non-Af 82, BUN/Creatinine Ratio 7.0 L, Glucose 267 H, Calcium 8.6, Troponin I High Sens 4 11/23/23 21:19: POC Glucose 217 H 11/24/23 00:47: POC Glucose 170 H 11/24/23 06:45: POC Glucose 187 H 11/24/23 06:51: Triglycerides 306 H, Cholesterol 161, LDL Cholesterol 66, VLDL Cholesterol 61 H, HDL Cholesterol 34 L Imaging Radiology Impression Brain CT 11/23/23 18:13 IMPRESSION: Mild periventricular white matter ischemic change. No acute bleed. If concern for acute infarct MRI recommended. Electronically Signed: Coleman Shankar MD at 18:59 EDT , Chest X-Ray 11/23/23 18:35 IMPRESSION: Normal x-ray examination of the chest. Electronically Signed: Coleman Shankar MD at 19:00 EDT , Head MRA 11/24/23 05:55 IMPRESSION: Normal MRA of the head Electronically Signed: Manav Infante MD at 10:58 EDT , Neck MRA 11/24/23 05:55 IMPRESSION: 1. Normal bilateral cervical carotid and vertebral arteries. 2. Normal aortic arch and origins of the great vessels. Electronically Signed: Manav Infante MD at 10:55 EDT , Echocardiogram 11/24/23 07:48 Interpretation Summary The study was technically difficult. The left ventricular ejection fraction is 65 %. Bubble contrast study is negative for PFO/ASD. Ordering Physician: Angeles Brewer Performed By: Mazin Wyman RCS Active Medications Active Medications Active Medications: Current Medications Generic Name Dose Route Start Last Admin Trade Name Freq PRN Reason Stop Dose Admin Albuterol Sulfate 2.5 mg 11/23/23 20:31 Albuterol 2.5 Mg/3 Ml Vial.Neb. INHALATION Q4H PRN PRN Wheezing Albuterol Sulfate 2.5 mg 11/24/23 00:00 11/24/23 07:33 Albuterol 2.5 Mg/3 Ml Vial.Neb. INHALATION 2.5 mg Q6HWA.RT JAMES Administration Aspirin 81 mg 11/24/23 08:00 11/24/23 11:26 Aspirin E.C. 81 Mg Tablet PO 81 mg DAILYCM JAMES Administration Atorvastatin Calcium 40 mg 11/23/23 22:00 11/23/23 23:11 Atorvastatin Calcium 40 Mg Tablet PO Not Given QHS JAMES Budesonide 0.5 mg 11/24/23 06:00 11/24/23 07:33 Budesonide Respules 0.5 Mg/2 Ml Ampul.Neb. INHALATION 0.5 mg Q12H.RT JAMES Administration Clopidogrel Bisulfate 75 mg 11/24/23 10:00 11/24/23 11:26 Clopidogrel Bisulfate 75 Mg Tablet PO 75 mg DAILY JAMES Administration Duloxetine HCl 60 mg 11/24/23 10:00 11/24/23 11:26 Duloxetine Hcl 60 Mg Capsule PO 60 mg DAILY JAMES Administration Empagliflozin 10 mg 11/24/23 10:00 11/24/23 11:26 Empagliflozin 10 Mg Tablet PO 10 mg DAILY JAMES Administration Enoxaparin Sodium 40 mg 11/24/23 10:00 11/24/23 11:30 Enoxaparin 40 Mg/0.4 Ml Syringe SC 40 mg DAILY JAMES Administration Fluticasone Propionate 1 spray 11/24/23 10:00 11/24/23 11:25 Fluticasone 0.05% 1 [place] Nasal.Sry NASAL Not Given DAILY JAMES Furosemide 60 mg 11/24/23 10:00 11/24/23 11:25 Furosemide 20 Mg Tablet PO 60 mg DAILY JAMES Administration Protocol Gabapentin 800 mg 11/23/23 22:00 11/24/23 07:31 Gabapentin 800 Mg Tablet PO Not Given TID JAMES Hydralazine HCl 5 mg 11/23/23 20:31 Hydralazine 20 Mg/Ml Vial IV 11/24/23 20:31 Q30M PRN maintain BP parameters with HR <60 Isosorbide Mononitrate 30 mg 11/23/23 22:00 11/24/23 11:25 Isosorbide Mononitrate 30 Mg Tablet PO 30 mg BID JAMES Administration Protocol Labetalol HCl 20 mg 11/23/23 18:12 Labetalol (Compound) 20 Mg/4 Ml Syringe IV 11/24/23 18:13 X1 PRN BLOOD PRESSURE Levothyroxine Sodium 75 mcg 11/24/23 06:00 11/24/23 07:31 Levothyroxine 75 Mcg Tablet PO Not Given 0600 [facility] Losartan Potassium 25 mg 11/24/23 10:00 11/24/23 11:27 Losartan Potassium 25 Mg Tablet PO 25 mg DAILY JAMES Administration Protocol Metformin HCl 1,000 mg 11/24/23 08:00 11/24/23 11:40 Metformin Hcl 1,000 Mg Tablet PO Not Given BIDCM [facility] Mirtazapine 45 mg 11/23/23 22:00 11/23/23 23:12 Mirtazapine 15 Mg Tablet PO Not Given QHS JAMES Morphine Sulfate 2 - 4 mg 11/24/23 11:14 11/24/23 11:30 Morphine 2 Mg/Ml Syringe IV 2 mg Q3H PRN PRN Administration Pain Score 6-10 Morphine Sulfate 2 - 4 mg 11/24/23 11:20 Morphine 4 Mg/Ml Syringe IV Q3H PRN PRN Pain Score 6-10 Multivitamins 1 tablet 11/24/23 08:00 11/24/23 11:26 Multivitamins,Therapeutic Tablet PO 1 tablet DAILYCM JAMES Administration Nitroglycerin 0.4 mg 11/23/23 20:31 Nitroglycerin (Inpatient Use) 0.4 Mg Tab.Subl SL Q5M PRN chest pain Pantoprazole Sodium 40 mg 11/24/23 10:00 11/24/23 11:25 Pantoprazole Sodium 40 Mg Tablet PO 40 mg DAILY JAMES Administration Sodium Chloride 10 - 40 ml 11/23/23 21:02 11/24/23 11:30 0.9% Saline Lock 10 Ml Syringe IV 10 ml UD PRN Administration SALINE FLUSH
[2023-11-24] MEDS: Gabapentin 800 MG Tablet PO (13:03)
[2023-11-24 13:07] LABS: Bedside Glucose 179 mg/dL (74-106)
[2023-11-24 13:11] VITALS: PULSE 78; RESP 20
[2023-11-24 13:15] VITALS: BP 126/88; PULSE 68; RESP 18; TEMP 36.4; O2SAT 94
[2023-11-24 13:48] LABS: Hemoglobin A1c 11.5 % (3.8-5.6)
--- NOTE | 2023-11-24 14:00 | DCINST_ITS ---
Discharge Instructions Diet Discharge Diet: - (DASH diet) Activity Discharge Activity: - (Increase activity as tolerated) Follow Up Care Test Results: Test results from this visit will be discussed in further detail at your follow- up appointment, if applicable. Discharge Plan Admission Admit Date/Time: 11/23/23 19:50 Primary Reason for Your Visit: Stroke Attending Provider: Angeles Brewer Primary Care Provider: Viola Gunderson [facility] Consulting Providers: Phillip Miller; Adams Rivera; Virginia Villalobos; Fay Marcial; Maricel Odom; Sue Kaminski; Bladimir Azevedo; Koki Elder; Chris Chinchilla; Tad Alvarado; Bipin Kaplan; Roxi Soto; Jon Henley; Archana Mendosa; Hui English; Eliot Ochoa; Weston Pinedo; Matthew Pacheco; Farrukh Cruz; Raquel Mac; Amauri Santana Instructions Patient Instructions: Dysarthria: Improving Speech, 5 Steps for Eating Healthier, Discharge Instructions for Stroke Additional Instructions / Restrictions: DISCHARGE INSTRUCTIONS PLEASE READ *Please take this with you to your next doctors appointment* -Will be important that you continue your aspirin and Plavix -You will be discharged with instructions for a 30-day heart monitor to evaluate for any underlying abnormal heart rhythms -Please follow-up with neurology upon discharge, please call Dr. Johnson's office upon discharge to schedule an establish care appointment for your stroke ), as discussed please also discuss with your primary care physician about a referral in the event you are able to be seen sooner by another provider if the wait time for an appointment significant -It is important that you quit smoking - Your Jardiance has been increased to 25 mg, and will be important that you have better control of your blood glucose, please follow-up closely with your primary care physician as you may need to be started on additional agent or potentially insulin if your glucose remains uncontrolled. Your new prescription has been sent to your preferred pharmacy on file, treatment -Please call your primary care provider's office upon discharge to schedule a hospital follow up within 1 week. -For any concerning signs or symptoms please call 911 or proceed to the nearest emergency department Discharge Orders/Prescriptions Prescriptions: New Jardiance 25 mg tablet 25 mg PO DAILY Qty: 30 0RF Continued losartan 50 mg tablet 25 mg PO QDAY aspirin 81 mg tablet,delayed release (DR/EC) 81 mg PO DAILY duloxetine 60 mg capsule,delayed release(DR/EC) 60 mg PO DAILY nitroglycerin [Nitrostat] 0.4 mg tablet, sublingual 0.4 mg SUBLINGUAL ONCE PRN (Reason: chest pain) Rx Instructions: as a single dose; administer 5-10 minutes before situation known to precipitate angina attack multivitamin Capsule 1 cap PO DAILY rosuvastatin 20 mg tablet 20 mg PO QHS 30 Days Qty: 30 3RF omeprazole 40 mg capsule,delayed release(DR/EC) 40 mg PO DAILY 30 Days Qty: 30 2RF ergocalciferol (vitamin D2) 50,000 UNIT capsule 50,000 unit PO Q7D albuterol sulfate 6.7 GM HFA aerosol inhaler 6.7 g IH PRN PRN (Reason: Wheezing) levothyroxine 50 mcg tablet 75 mcg PO DAILY mirtazapine 15 mg tablet 45 mg PO QHS fluticasone propionate 1 SPRAY spray,suspension 1 spray NASAL DAILY icosapent ethyl 1 gram capsule 2 g PO BID Patient Comments: TAKE 2 CAPSULES BY MOUTH TWICE DAILY WITH MEALS budesonide-formoterol 160-4.5 mcg/actuation HFA aerosol inhaler 2 puff INHALATION BID Qty: 10.2 11RF clopidogrel 75 mg tablet 75 mg PO QDAY Qty: 90 3RF metformin 1,000 mg tablet 1,000 mg PO BID furosemide [Lasix] 40 mg tablet 60 mg PO DAILY isosorbide mononitrate 60 mg tablet extended release 24 hr 30 mg PO BID Qty: 90 3RF gabapentin 400 mg capsule 800 mg PO TID Discontinued Jardiance 10 mg tablet 10 mg PO DAILY Other Ambulatory Orders: 30 Day Event Recorder Preventi (Urgent) Timeframe: 1 Day Facility: [facility] - Location: Cardiovascular Services Ordered By: Dr. Angeles Brewer Referrals / Follow Up: Manoj Johnson MD [Non-Staff -Ordering Privileges] - ( -Please follow-up with neurology upon discharge, please call Dr. Johnson's office upon discharge to schedule an establish care appointment for your stroke )) Viola Gunderson, [employer] [Primary Care Provider] - Within 1 Week Disposition Disposition (needs filled in before D/C Order can be placed): Home, Self Care
--- NOTE | 2023-11-24 14:03 | DS.PCM_ITS ---
Providers Date of Admission: 11/23/23 Date of Discharge: 11/24/23 Primary Care Physician: CARLOTA Kearney, [employer] ASSESSOR-C Consultations 11/24/23 07:48 Consult: Tele-Neurology Routine Consulting Provider: [facility] Reason for Consult: stroke sx, MRI p but has deficits, already on asa and plavix at home EMERGENT Consult: No MD Notified: Yes Date Notified: 11/24/23 Time Notified: 07:49 Method of Notification: Answering Service Method of Consult:: Telemedicine Nursing Unit Staff Notify [facility] of Tele-Neurology Consult: Yes Reason For Visit: PARESTHESIA LEFT EXTREMETIES, FACIAL DROOP Diagnosis Discharge Diagnosis (1) CVA (cerebral vascular accident): Status: Acute Code(s): I63.9 - Cerebral infarction, unspecified (2) Paresthesia of left upper and lower extremity: Status: Acute Code(s): R20.2 - Paresthesia of skin (3) Type 2 diabetes mellitus: Status: Acute Code(s): E11.9 - Type 2 diabetes mellitus without complications (4) Facial droop: Status: Acute Code(s): R29.810 - Facial weakness (5) Essential hypertension: Status: Acute Code(s): I10 - Essential (primary) hypertension (6) History of coronary artery stent placement: Status: Resolved Code(s): Z95.5 - Presence of coronary angioplasty implant and graft (7) COPD (chronic obstructive pulmonary disease): Status: Chronic Code(s): J44.9 - Chronic obstructive pulmonary disease, unspecified Qualifiers: COPD type: unspecified COPD Qualified Code(s): J44.9 - Chronic obstructive pulmonary disease, unspecified (8) Morbid obesity due to excess calories: Status: Chronic Code(s): E66.01 - Morbid (severe) obesity due to excess calories (9) Hyperlipidemia: Status: Chronic Code(s): E78.5 - Hyperlipidemia, unspecified Qualifiers: Hyperlipidemia type: unspecified Qualified Code(s): E78.5 - Hyperlipidemia, unspecified Plan #CVA #COPD #Hx CAD s/p stentin #HTN #CANDELARIA #GERD #Tobacco use Medications at Discharge Home Medications albuterol sulfate 90 mcg/actuation aerosol inhaler 6.7 g IH PRN PRN Wheezing 12/06/14 ergocalciferol (vitamin D2) 1,250 mcg (50,000 unit) capsule 50,000 unit PO Q7D 12/06/14 fluticasone propionate 50 mcg/actuation nasal spray,suspension 1 spray NASAL DAILY 05/05/16 aspirin 81 mg tablet,delayed release 81 mg PO DAILY 08/11/19 duloxetine 60 mg capsule,delayed release 60 mg PO DAILY 08/11/19 levothyroxine 50 mcg tablet 75 mcg PO DAILY 08/11/19 losartan 50 mg tablet 25 mg PO QDAY 08/11/19 mirtazapine 15 mg tablet 45 mg PO QHS 08/11/19 multivitamin 1 cap PO DAILY 08/11/19 nitroglycerin 0.4 mg sublingual tablet (Nitrostat) 0.4 mg sublingual ONCE PRN chest pain 08/11/19 budesonide-formoterol HFA 160 mcg-4.5 mcg/actuation aerosol inhaler 2 puff inhalation BID #10.2 grams 12/05/19 clopidogrel 75 mg tablet 75 mg PO QDAY #90 tabs 12/29/19 furosemide 40 mg tablet (Lasix) 60 mg PO DAILY 11/15/20 metformin 1,000 mg tablet 1,000 mg PO BID 11/15/20 isosorbide mononitrate 60 mg tablet,extended release 24 hr 30 mg (1/2 x 60 mg) PO BID #90 tabs 12/03/21 gabapentin 400 mg capsule 800 mg PO TID 09/18/22 omeprazole 40 mg capsule,delayed release 40 mg PO DAILY 1 month #30 caps 06/05/23 rosuvastatin 20 mg tablet 20 mg PO QHS 1 month #30 tabs 06/05/23 icosapent ethyl 1 gram capsule 2 g PO BID 06/30/23 empagliflozin 25 mg tablet (Jardiance) 25 mg PO DAILY #30 tabs 11/24/23 Hospital Course Summary of Care Provided Minutes Spent on Discharge: 32 Hospital Course: Per HPI: ONELIA REED, is a 57 M who presents to the emergency room with chief complaint of left-sided facial droop and left arm numbness and tingling. The patient reports onset of symptoms began approximately 10 days ago and he says he did not seek medical attention at that time because he is stubborn . Patient denies any chest pain, shortness of breath, fevers or chills, dysphagia or difficulty in speech or other neurologic complaints at this time. Patient states he was told by his physician to come to the emergency room to find out what happened. CT scan is negative for acute stroke. Patient does have significant past medical history of COPD, diabetes, obstructive sleep apnea and obesity. Will be admitted to the progressive care unit for observation and MRI MRA head and neck in the morning. INTERVAL HISTORY: Imaging negative and echo unremarkable, no A-fib on telemetry. Neuro evaluated and still felt this was consistent with small stroke given persistent symptoms. Patient passed swallow study and was up in room and wanted to go home. Neurology recommended to continue aspirin and Plavix and obtain an an A1c. Evaluated patient and he would like to go home, discussed event monitor and following up with neurology and patient verbalized understanding. Shortly before discharge A1c resulted and was significantly elevated however glucoses overnight are 170s to 180s so insulin had not been started. Given patient was being actively discharged and is stable will increase Jardiance and recommend close follow-up with PCP in the event he needs to be started on insulin or an injectable or alternate agent. Discharge instructions as followed: -Will be important that you continue your aspirin and Plavix -You will be discharged with instructions for a 30-day heart monitor to evaluate for any underlying abnormal heart rhythms -Please follow-up with neurology upon discharge, please call Dr. Johnson's office upon discharge to schedule an establish care appointment for your stroke (ph [phone]), as discussed please also discuss with your primary care physician about a referral in the event you are able to be seen sooner by another provider if the wait time for an appointment significant -It is important that you quit smoking - Your Jardiance has been increased to 25 mg, and will be important that you have better control of your blood glucose, please follow-up closely with your primary care physician as you may need to be started on additional agent or potentially insulin if your glucose remains uncontrolled. Your new prescription has been sent to your preferred pharmacy on file, treatment -Please call your primary care provider's office upon discharge to schedule a hospital follow up within 1 week. -For any concerning signs or symptoms please call 911 or proceed to the nearest emergency department Physical Exam Narrative General: Alert, oriented, no apparent distress HEENT: Atraumatic, left lower facial droop Eyes: Anicteric, normal conjunctiva, extraocular movements intact, pupils equal Neck: Supple Respiratory: Clear to auscultation bilaterally, normal respiratory effort Cardiovascular: Regular rate and rhythm GI: Soft, nontender, nondistended Extremities: No edema Musculoskeletal: Strength 5 out of 5 in right upper extremity, 5 out of 5 left upper extremity, 5 out of 5 right lower extremity, 5 out of 5 left lower extremity Neuro: Left lower facial droop, is able to wrinkle forehead and close I otherwise cranial nerves II through XII intact, [id number] without significant difficulty bilaterally Skin: No rashes appreciated Psych: Cooperative Weight / BMI Weight Weight: 113.3 kg Body Mass Index (BMI) 36.8 ABG / Lab / Microbiology Data 11/23/23 18:14 11/23/23 18:14 Laboratory: Laboratory Results - last 24 hr 11/23/23 18:02: POC Glucose 311 H 11/23/23 18:14: WBC 5.2, RBC 4.85, Hgb 16.6 H, Hct 47.3, MCV 97.5 H, MCH 34.2 H, MCHC 35.1, RDW Std Deviation 46.1 H, RDW Coeff of Autumn 12.9, Plt Count 119 L, MPV 11.5, Immature Gran % (Auto) 0.200, Neut % (Auto) 44.4 L, Lymph % (Auto) 44.7 H, [place] % (Auto) 8.4, Eos % (Auto) 1.7, Baso % (Auto) 0.6, Absolute Neuts (auto) 2.3, Absolute Lymphs (auto) 2.34, Nucleated RBC % 0, PT 14.2, INR 1.1, APTT 32.1, Sodium 136, Potassium 3.6, Chloride 104, Carbon Dioxide 27.0, Anion Gap 5, BUN 7, Creatinine 1.00, Estim Creat Clear Calc 111.51, Est GFR (MDRD) Af Amer 99, Est GFR (MDRD) Non-Af 82, BUN/Creatinine Ratio 7.0 L, Glucose 267 H, H emoglobin A1c 11.5 H, Calcium 8.6, Troponin I High Sens 4 11/23/23 21:19: POC Glucose 217 H 11/24/23 00:47: POC Glucose 170 H 11/24/23 06:45: POC Glucose 187 H 11/24/23 06:51: Triglycerides 306 H, Cholesterol 161, LDL Cholesterol 66, VLDL Cholesterol 61 H, HDL Cholesterol 34 L 11/24/23 12:49: POC Glucose 179 H Radiography Diagnostic Testing: Radiology Impression Brain CT 11/23/23 18:13 IMPRESSION: Mild periventricular white matter ischemic change. No acute bleed. If concern for acute infarct MRI recommended. Electronically Signed: Coleman Shankar MD at 18:59 EDT , Chest X-Ray 11/23/23 18:35 IMPRESSION: Normal x-ray examination of the chest. Electronically Signed: Coleman Shankar MD at 19:00 EDT , Brain MRI 11/24/23 05:55 IMPRESSION: No evidence for acute infarct or enhancing intracranial mass. Very mild chronic white matter changes. Electronically Signed: Mirela Olson MD at 12:14 EDT , Head MRA 11/24/23 05:55 IMPRESSION: Normal MRA of the head Electronically Signed: Manav Infante MD at 10:58 EDT , Neck MRA 11/24/23 05:55 IMPRESSION: 1. Normal bilateral cervical carotid and vertebral arteries. 2. Normal aortic arch and origins of the great vessels. Electronically Signed: Manav Infante MD at 10:55 EDT , Echocardiogram 11/24/23 07:48 Interpretation Summary The study was technically difficult. The left ventricular ejection fraction is 65 %. Bubble contrast study is negative for PFO/ASD. Ordering Physician: Angeles Brewer Performed By: Mazin Wyman RCS D/C Instructions Discharge Diet: - (DASH diet) Meaningful Use Info Meaningful Use Meaningful Use Diagnoses (Choose all that apply): Ischemic CVA CVA Therapy Assessed for PT,OT and/or ST?: Yes Ischemic Stroke Antithrombotic order at d/c?: Yes Reason antithrombotic not ordered: Treatment not Indicated Dx of Atrial fib/flutter?: No Statin Dosing Therapy Reference: STATIN DOSE THERAPY REFERENCE: * Patients > 75 years receive moderate or high dose statin therapy. * Patients 75 years or YOUNGER should receive HIGH intensity statin dose unless contraindicated. You will be required to document reason for non-treatment if statin daily dose does not meet guidelines. HIGH DOSE STATIN THERAPY DAILY Atorvastatin > than or = to 40 mg Rosuvastatin > than or = to 20 mg Amlodipine + Atorvastatin > than or = to 2.5/40 mg Ezetimibe + Simvastatin 10/80 mg Simvastatin 80mg Statins at discharge?: Yes If patient is 75 or younger, pt will be discharged on HIGH intensity statin.: Y es Primary Dx Acute Ischemic CVA?: Yes Discharge Plan Admission Admit Date/Time: 11/23/23 19:50 Primary Reason for Your Visit: Stroke Attending Provider: Angeles Brewer Primary Care Provider: Viola Gunderson [facility] Consulting Providers: Phillip Miller; Adams Rivera; Virginia Villalobos; Fay Marcial; Maricel Odom; Sue Kaminski; Bladimir Azevedo; Koki Elder; Chris Chinchilla; Tad Alvarado; Bipin Kaplan; Roxi Soto; Jon Henley; Archana Mendosa; Hui English; Eliot Ochoa; Weston Pinedo; Matthew Pacheco; Farrukh Cruz; Raquel Mac; Amauri Santana Instructions Patient Instructions: Dysarthria: Improving Speech, 5 Steps for Eating Healthier, Discharge Instructions for Stroke Additional Instructions / Restrictions: DISCHARGE INSTRUCTIONS PLEASE READ *Please take this with you to your next doctors appointment* -Will be important that you continue your aspirin and Plavix -You will be discharged with instructions for a 30-day heart monitor to evaluate for any underlying abnormal heart rhythms -Please follow-up with neurology upon discharge, please call Dr. Johnson's office upon discharge to schedule an establish care appointment for your stroke (ph [phone]), as discussed please also discuss with your primary care physician about a referral in the event you are able to be seen sooner by another provider if the wait time for an appointment significant -It is important that you quit smoking - Your Jardiance has been increased to 25 mg, and will be important that you have better control of your blood glucose, please follow-up closely with your primary care physician as you may need to be started on additional agent or potentially insulin if your glucose remains uncontrolled. Your new prescription has been sent to your preferred pharmacy on file, treatment -Please call your primary care provider's office upon discharge to schedule a hospital follow up within 1 week. -For any concerning signs or symptoms please call 911 or proceed to the nearest emergency department Discharge Orders/Prescriptions Prescriptions: New Jardiance 25 mg tablet 25 mg PO DAILY Qty: 30 0RF Continued losartan 50 mg tablet 25 mg PO QDAY aspirin 81 mg tablet,delayed release (DR/EC) 81 mg PO DAILY duloxetine 60 mg capsule,delayed release(DR/EC) 60 mg PO DAILY nitroglycerin [Nitrostat] 0.4 mg tablet, sublingual 0.4 mg SUBLINGUAL ONCE PRN (Reason: chest pain) Rx Instructions: as a single dose; administer 5-10 minutes before situation known to precipitate angina attack multivitamin Capsule 1 cap PO DAILY rosuvastatin 20 mg tablet 20 mg PO QHS 30 Days Qty: 30 3RF omeprazole 40 mg capsule,delayed release(DR/EC) 40 mg PO DAILY 30 Days Qty: 30 2RF ergocalciferol (vitamin D2) 50,000 UNIT capsule 50,000 unit PO Q7D albuterol sulfate 6.7 GM HFA aerosol inhaler 6.7 g IH PRN PRN (Reason: Wheezing) levothyroxine 50 mcg tablet 75 mcg PO DAILY mirtazapine 15 mg tablet 45 mg PO QHS fluticasone propionate 1 SPRAY spray,suspension 1 spray NASAL DAILY icosapent ethyl 1 gram capsule 2 g PO BID Patient Comments: TAKE 2 CAPSULES BY MOUTH TWICE DAILY WITH MEALS budesonide-formoterol 160-4.5 mcg/actuation HFA aerosol inhaler 2 puff INHALATION BID Qty: 10.2 11RF clopidogrel 75 mg tablet 75 mg PO QDAY Qty: 90 3RF metformin 1,000 mg tablet 1,000 mg PO BID furosemide [Lasix] 40 mg tablet 60 mg PO DAILY isosorbide mononitrate 60 mg tablet extended release 24 hr 30 mg PO BID Qty: 90 3RF gabapentin 400 mg capsule 800 mg PO TID Discontinued Jardiance 10 mg tablet 10 mg PO DAILY Other Ambulatory Orders: 30 Day Event Recorder Preventi (Urgent) Timeframe: 1 Day Facility: [facility] - Location: Cardiovascular Services Ordered By: Dr. Angeles Brewer Referrals / Follow Up: Manoj Johnson MD [Non-Staff -Ordering Privileges] - ( -Please follow-up with neurology upon discharge, please call Dr. Johnson's office upon discharge to schedule an establish care appointment for your stroke (ph [phone])) Viola Gunderson Bebe, [employer] ASSESSOR-C [Primary Care Provider] - Within 1 Week Disposition Disposition (needs filled in before D/C Order can be placed): Home, Self Care Charges/Coding Visit Charges Inpatient E&M: 17930 Disch Hosp >30min
--- NOTE | 2023-11-24 14:20 | PHA.DC.MR.R ---
Pharmacy [place] Med Reconciliation Pharmacy Service has performed discharge medication reconciliation for this patient. The patient's discharge medication list was reviewed for discrepancies and discrepancies were resolved. Medications at Discharge Home Medications albuterol sulfate 90 mcg/actuation aerosol inhaler 6.7 g IH PRN PRN Wheezing 12/06/14 ergocalciferol (vitamin D2) 1,250 mcg (50,000 unit) capsule 50,000 unit PO Q7D 12/06/14 fluticasone propionate 50 mcg/actuation nasal spray,suspension 1 spray NASAL DAILY 05/05/16 aspirin 81 mg tablet,delayed release 81 mg PO DAILY 08/11/19 duloxetine 60 mg capsule,delayed release 60 mg PO DAILY 08/11/19 levothyroxine 50 mcg tablet 75 mcg PO DAILY 08/11/19 losartan 50 mg tablet 25 mg PO QDAY 08/11/19 mirtazapine 15 mg tablet 45 mg PO QHS 08/11/19 multivitamin 1 cap PO DAILY 08/11/19 nitroglycerin 0.4 mg sublingual tablet (Nitrostat) 0.4 mg sublingual ONCE PRN chest pain 08/11/19 budesonide-formoterol HFA 160 mcg-4.5 mcg/actuation aerosol inhaler 2 puff inhalation BID #10.2 grams 12/05/19 clopidogrel 75 mg tablet 75 mg PO QDAY #90 tabs 12/29/19 furosemide 40 mg tablet (Lasix) 60 mg PO DAILY 11/15/20 metformin 1,000 mg tablet 1,000 mg PO BID 11/15/20 isosorbide mononitrate 60 mg tablet,extended release 24 hr 30 mg (1/2 x 60 mg) PO BID #90 tabs 12/03/21 gabapentin 400 mg capsule 800 mg PO TID 09/18/22 omeprazole 40 mg capsule,delayed release 40 mg PO DAILY 1 month #30 caps 06/05/23 rosuvastatin 20 mg tablet 20 mg PO QHS 1 month #30 tabs 06/05/23 icosapent ethyl 1 gram capsule 2 g PO BID 06/30/23 empagliflozin 25 mg tablet (Jardiance) 25 mg PO DAILY #30 tabs 11/24/23
--- NOTE | 2023-11-24 14:21 | CASEMGMT ---
Social Work- SW met with pt to administer PHQ9. Pt was pleasant and cooperative in demeanor and engaged fully in discussion. Pt scored a 2 on PHQ9. Pt reports no needs or resources at this time. SW will continue to remain available to follow. PEG Nicolas
--- NOTE | 2023-11-24 14:45 | CASEMGMT ---
Patient has order for discharge. Patient discharging on Jardiance. RN CM called [facility] and verified copay of $20. RN CM in to discuss needs at discharge. RN CM updated patient of Jardiance copay. Patient denies needs or help at discharge. Patient had no further questions or concerns.
== END 2023-11-24 14:03 | disposition home or self-care (01) ==
LOC: ED 19:21 → PCU 21:03
PROVIDERS: Admitting Provider Family Medicine; Emergency Provider Emergency Medicine; PCP Nurse Practitioner Family; Visit Provider Internal Medicine
DX: R20.2 Paresthesia of skin (principal); J44.9 Chronic obstructive pulmonary disease, unspecified; E66.01 Morbid (severe) obesity due to excess calories; E11.65 Type 2 diabetes mellitus with hyperglycemia; E11.42 Type 2 diabetes mellitus with diabetic polyneuropathy; Z68.36 Body mass index [BMI] 36.0-36.9, adult; E78.00 Pure hypercholesterolemia, unspecified; Z79.82 Long term (current) use of aspirin; I10 Essential (primary) hypertension; I25.10 Atherosclerotic heart disease of native coronary artery without angina pectoris; Z79.02 Long term (current) use of antithrombotics/antiplatelets; E03.9 Hypothyroidism, unspecified; F17.210 Nicotine dependence, cigarettes, uncomplicated; Z95.5 Presence of coronary angioplasty implant and graft; R29.810 Facial weakness; Z79.899 Other long term (current) drug therapy; Z79.51 Long term (current) use of inhaled steroids; G47.33 Obstructive sleep apnea (adult) (pediatric); R20.0 Anesthesia of skin; Z79.890 Hormone replacement therapy
CPT/HCPCS: 36415; 70450; 70544; 70549; 70553; 71045; 80048; 80061; 82962; 83036; 84484; 85025; 85610; 85730; 92610; 93005; 93306; 94640; 94762; 96372; 96374; 99221; 99285; 99406; A9575; Q9957; A4216; C8929; G0378

== ENCOUNTER 2024-03-06 15:04 | Inpatient (IN) | payer MEDICAID, SELFPAY ==
[2024-03-06] VITALS (16 sets, daily range): BP systolic 147–164; BP diastolic 74–92; PULSE 63–88; RESP 13–20; TEMP 36.6–37.1; O2SAT 92–99; BMI 38.6; BMI 37.3
--- NOTE | 2024-03-06 15:36 | EKG12_ITS ---
Test Reason : Blood Pressure : / mmHG Vent. Rate : 064 BPM Atrial Rate : 064 BPM P-R Int : 148 ms QRS Dur : 144 ms QT Int : 434 ms P-R-T Axes : 024 046 047 degrees QTc Int : 447 ms Normal sinus rhythm Right bundle branch block Abnormal ECG Confirmed by DUSTIN DEE, BRIDGET ([id number]), movie editor CARLO HINOJOSA ([id number]) on 03/08/2024 10:19:35 AM Referred By: Confirmed By:BRIDGET CHAN MD
--- NOTE | 2024-03-06 15:50 | RAD_ITS ---
EXAM: XR RIGHT HAND COMPLETE, 3 OR MORE VIEWS CLINICAL INDICATION: Injury/Pain -- Attention middle finger, concern flexor tenosynovi TECHNIQUE: Frontal, lateral and oblique views of the right hand. COMPARISON: No relevant prior studies available. FINDINGS: BONES/JOINTS: Unremarkable. No acute fracture. No subluxation. Normal alignment. Preservation of the joint space. No sclerotic or destructive changes observed. SOFT TISSUES: Unremarkable. No soft tissue swelling or gas. No radiopaque foreign body. RAD/Hand Min 3 Views IMPRESSION: Negative right hand x-rays. Electronically Signed: Zion Hammond MD at 16:09 EDT ,
[2024-03-06] MEDS: Ampicillin/Sulbactam 3 GM in 0.9% Normal Saline (100mL MB+) 100 ML IV (16:01)
--- NOTE | 2024-03-06 16:01 | ED.RN ---
PER DR. VILLA, HE IS NOT ORDERING CULTURES ON THIS PT.
[2024-03-06 16:10] LABS: Absolute Lymphocyte Count 2.73 X10^3/uL (0.83-4.51); Absolute Neutrophil Count 7.5 X10^3/uL (2.0-7.7); Basophil# 0.04 X10^3/uL; Basophil% 0.4 % (0-1); Eosinophil# 0.11 X10^3/uL; Hematocrit 51.2 % (40-54); Hemoglobin 17.4 g/dL (13.0-16.5); Lymphocyte # 2.73 X10^3/ul (0.83-4.51); Lymphocyte % 24.6 % (19-41); Mean Corpuscular Hgb 34.3 pg (27.0-32.0); Mean Corpuscular Volume 100.8 fL (80-94); Mean Platelet Vol. 10.9 fl (6.2-12.0); Monocyte% 6.3 % (0-10); NRBC Flagged by Analyzer 0 % (0-5); Neutrophil # 7.49 X10^3/uL (2.7-7.7); Neutrophil % 67.3 % (47-70); Platelet Count 118 K/mm3 (150-450); RBC Distribution Width CV 12.7 % (11.6-14.6); RBC Distribution Width SD 47.8 fl (35.1-43.9); Red Blood Count 5.08 M/mm3 (4.6-6.2); White Blood Count 11.1 K/mm3 (4.4-11.0)
[2024-03-06 16:13] LABS: POSITIVE COUNT NO; POSITIVE DIFFERENTIAL NO; POSITIVE MORPHOLOGY NO
[2024-03-06 16:20] LABS: International Normalized Ratio 1.1; Prothrombin Time (Protime)PT. 14.2 SECONDS (11.7-14.9)
[2024-03-06 16:25] LABS: ALB/GLOB Ratio 1.4 RATIO (0.9-2.4); AST(SGOT) 45 U/L (15-37); Alanine Aminotransfer ALT/SGPT 91 U/L (16-61); Albumin, Serum 3.9 g/dL (3.2-5.0); Alkaline Phosphatase 100 U/L (45-117); Anion Gap 4 (5-15); BUN 9 mg/dL (7-18); BUN/Creat Ratio 9.8 RATIO (10-20); CRP < 2.90 mg/L (0.0-3.0); Calcium,Total 8.8 mg/dL (8.5-10.1); Chloride 104 mmol/L (98-107); Creatinine, Serum 0.92 mg/dL (0.70-1.30); EST Glomerular Filtration Rate 90 mL/min (>60); Est Glom Filt Rate - Afr Amer 109 mL/min (>60); Globulin 2.8 g/dL (2.2-4.2); Glucose 123 mg/dL (74-106); Lactic Acid 1.5 mmol/L (0.4-1.9); Potassium 3.7 mmol/L (3.5-5.1); Protein, Total 6.7 g/dL (6.4-8.2); Sodium Level 136 mmol/L (136-145)
[2024-03-06 16:31] LABS: Erythrocyte Sedimentation Rate < 1 mm/hr (0-20)
--- NOTE | 2024-03-06 16:34 | EX.ED.UPPERE ---
HPI History of Present Illness Chief Complaint: Upper Extremity Injury Detail of Chief Complaint: Right long finger pain, swelling and bruising Informant: patient Onset/Context/Timing Onset: Weeks (Patient complains of pain approximately 2 weeks ago) Context: Sudden Onset Timing: Continuous Quality of Pain: Aching and Throbbing Location: Right middle finger Current Severity: Mild Maximum Severity: Severe Worsened by: Using his right hand Relieved by: Nothing Associated Symptoms Associated Symptoms: Positive for Loss of Funtion Narrative Narrative: Patient is a 58-year-old gentleman with history of coronary disease, type 2 diabetes, CVA, hypertriglyceridemia, COPD, long-term antithrombotic use, hypertension, GERD, nonalcoholic fatty liver disease who presents because of pain and swelling of his right long finger. He is ambidextrous. He states he was seen in urgent care and placed on last week by his PCP and placed on trimethoprim/sulfamethoxazole. He had x-rays on Thursday which reportedly were normal. He denies trauma. He denies gardening or any splinters that may have been in his finger. He denies altered sensation. He complains of pain with movement of his fingers right hand. Prior similar symptoms: Yes Recent Illness/Hospitalization: Yes [facility] Medical History Wears glasses No natural teeth Diabetes Thyroid disease High cholesterol Blackout History of GI bleed Smoker BiPAP (biphasic positive airway pressure) dependence Sleep apnea Shortness of breath on exertion Chronic cough History of edema Leg cramps History of stress test Cardiology follow-up encounter Elevated LFTs Back pain Dorsalgia of thoracolumbar region Patellofemoral arthritis of right knee Bilateral knee pain Situational syncope Chest pain, unspecified Type 2 diabetes mellitus Essential hypertension Pneumonia due to other streptococci Atherosclerosis of coronary artery of [place] heart without angina pectoris Right bundle-branch block Gastroesophageal reflux disease Hypertriglyceridemia Obstructive sleep apnea Body mass index (BMI) 35 or more Tobacco abuse COPD (chronic obstructive pulmonary disease) MASON (dyspnea on exertion) Morbid obesity due to excess calories Localized edema Long-term use of high-risk medication Hyperlipidemia Difficulty swallowing Stage 2 moderate COPD by GOLD classification Sinus drainage Home Medications ?Medication ?Instructions ?Recorded ?Last Taken ?Type albuterol sulfate 90 mcg/actuation 6.7 g IH PRN PRN Wheezing 12/06/14 Unknown History aerosol inhaler ergocalciferol (vitamin D2) 1,250 50,000 unit PO Q7D 12/06/14 Unknown History mcg (50,000 unit) capsule fluticasone propionate 50 1 spray NASAL DAILY 05/05/16 Unknown History mcg/actuation nasal spray,suspension aspirin 81 mg tablet,delayed 81 mg PO DAILY 08/11/19 Unknown History release duloxetine 60 mg capsule,delayed 60 mg PO DAILY 08/11/19 Unknown History release levothyroxine 50 mcg tablet 75 mcg PO DAILY 08/11/19 Unknown History losartan 50 mg tablet 25 mg PO QDAY 08/11/19 Unknown History mirtazapine 15 mg tablet 45 mg PO QHS 08/11/19 Unknown History multivitamin 1 cap PO DAILY 08/11/19 Unknown History nitroglycerin 0.4 mg sublingual 0.4 mg sublingual ONCE PRN chest 08/11/19 Unknown History tablet (Nitrostat) pain budesonide-formoterol HFA 160 2 puff inhalation BID #10.2 grams 12/05/19 Unknown Rx mcg-4.5 mcg/actuation aerosol inhaler clopidogrel 75 mg tablet 75 mg PO QDAY #90 tabs 12/29/19 Unknown Rx furosemide 40 mg tablet (Lasix) 60 mg PO DAILY 11/15/20 Unknown History metformin 1,000 mg tablet 1,000 mg PO BID 11/15/20 Unknown History isosorbide mononitrate 60 mg 30 mg (1/2 x 60 mg) PO BID #90 tabs 12/03/21 Unknown Rx tablet,extended release 24 hr gabapentin 400 mg capsule 800 mg PO TID 09/18/22 Unknown History omeprazole 40 mg capsule,delayed 40 mg PO DAILY 1 month #30 caps 06/05/23 Unknown Rx release rosuvastatin 20 mg tablet 20 mg PO QHS 1 month #30 tabs 06/05/23 Unknown Rx icosapent ethyl 1 gram capsule 2 g PO BID 06/30/23 Unknown History empagliflozin 25 mg tablet 25 mg PO DAILY #30 tabs 11/24/23 Unknown Rx (Jardiance) Allergy/AdvReac Type Severity Reaction Status Date / Time No Known Allergies Allergy Verified 03/06/24 15:05 Family History Father CVA (cerebral vascular accident) Brother CAD (coronary artery disease) Diabetes Mother COPD (chronic obstructive pulmonary disease) Sarcoidosis Surgical History S/P laparoscopic cholecystectomy H/O umbilical hernia repair History of coronary artery stent placement (~03/25/16) History of carpal tunnel surgery of right wrist History of left heart catheterization Social History household members: spouse current occupational status: disabled Smoking Status: Current every day smoker tobacco type: cigarettes Tobacco: How many years used: 30 second hand exposure: Yes alcohol intake: never substance use type: does not use caffeine: Yes Type: coffee Number of servings: 2 what type of physical activity do you participate in: none ROS ROS ED Constitutional Constitutional ED: Denies chills, fever(s), subjective, sweats or weight loss Eyes Eyes: Denies blurry vision or change in vision ENT ENT ED: Denies ear pain, rhinorrhea or sore throat Cardiovascular Cardiovascular: Denies chest pain or palpitations Respiratory/Chest Respiratory/Chest: Denies cough, dyspnea or dyspnea on exertion Gastrointestinal Gastrointestinal: Denies nausea or vomiting Genitourinary Genitourinary ED: Denies dysuria, hematuria or urinary frequency Neurologic Neurologic: Denies paresthesias Psychiatric Psychiatric: Denies anxiety Endocrine Endocrinology: Denies polydipsia or polyuria EXAM Physical Exam Const Vital Signs: 03/06/24 15:04 03/06/24 15:07 03/06/24 16:07 Temperature 97.9 F 97.9 F 98.4 F Temperature Source Oral Oral Oral Pulse Rate 72 77 88 Respiratory Rate 13 18 14 Blood Pressure 154/80 H 161/80 H 153/89 H Blood Pressure Mean 104 107 110 Pulse Ox 99 98 94 Oxygen Delivery Method Room Air Room Air Positive well nourished and well developed General Appearance ED: well developed and NAD; Negative for cyanotic or diaphoretic HEENT Reports moist mucous membranes normocephalic and atraumatic Eyes PERRL and EOMs intact bilaterally Neck full ROM and supple Resp normal respiratory effort and clear to auscultation bilaterally Cardio regular rate, regular rhythm, S1 normal heart sound, S2 normal heart sound and no murmurs Extremity Negative for normal to inspection or full ROM Extremity Narrative: Positive Knievel sign right long finger. Patient's finger is in flexion there is swelling. There is also some discoloration. 2 point discrimination is abnormal on the radial side. Palpation of the flexor tendon in zone 3 causes him significant discomfort. Passive extension causes him discomfort. There is no subungual hematoma. Capillary refill is normal. There is no lymphangitis. There is no epitrochlear lymphadenopathy. Neuro oriented x3 and CN's II-XII intact bilaterally Neuro Narrative: Median, radial and ulnar function intact. Psych mental status grossly normal Skin General Skin Exam: Negative for petechiae Lesions: no lesions Trauma: no lacerations or abrasions MDM MDM MDM Narrative Medical decision making narrative: Patient's clinical picture is consistent with a flexor tenosynovitis. Spoke with Dr. Negro on for hand. Agrees with antibiotics. He will be into see patient. Asked patient to be admitted to medical service. Patient's been made NPO. He had a glass of water prior to arrival. He has not anything to eat since this morning. History & Record Review Discussion w/independent historian: Patient, Family and Significant other Additional record(s) reviewed:: Prior labs Lab Data Attestation: I reviewed the patient's lab results. Lab results narrative: White count is slightly elevated 11.1 with no shift. Patient's electrolyte panel is remarkable glucose of 123 with a normal CO2 anion gap. ESR and CRP are both normal. Patient is presently on trimethoprim/sulfamethoxazole DS twice daily. He was placed on this on Thursday. Labs: Laboratory Results - last 24 hr 03/06/24 15:50 WBC 11.1 H RBC 5.08 Hgb 17.4 H Hct 51.2 MCV 100.8 H MCH 34.3 H MCHC 34.0 RDW Std Deviation 47.8 H RDW Coeff of Autumn 12.7 Plt Count 118 L MPV 10.9 Immature Gran % (Auto) 0.400 Neut % (Auto) 67.3 Lymph % (Auto) 24.6 [place] % (Auto) 6.3 Eos % (Auto) 1.0 Baso % (Auto) 0.4 Absolute Neuts (auto) 7.5 Absolute Lymphs (auto) 2.73 Nucleated RBC % 0 ESR < 1 Sodium 136 Potassium 3.7 Chloride 104 Carbon Dioxide 29.0 Anion Gap 4 L BUN 9 Creatinine 0.92 Estim Creat Clear Calc 112.60 Est GFR (MDRD) Af Amer 109 Est GFR (MDRD) Non-Af 90 BUN/Creatinine Ratio 9.8 L Glucose 123 H Lactic Acid 1.5 Calcium 8.8 Total Bilirubin 0.40 AST 45 H ALT 91 H Alkaline Phosphatase 100 C-React Prot Ext Range < 2.90 Total Protein 6.7 Albumin 3.9 Globulin 2.8 Albumin/Globulin Ratio 1.4 Radiography Chest X-Ray - ED: Read by ED Physician (Three-view x-ray of the hand reveals soft tissue swelling of the long finger. There is no foreign body. There is no periosteal elevation or any destruction of the phalanges of the long finger. There is no air-fluid level noted. In my opinion this is unremarkable other than the soft tissue swelli) Diagnostic Testing: Clinical Impression(s) from Imaging Studies Hand X-Ray 03/06/24 15:50 IMPRESSION: Negative right hand x-rays. Electronically Signed: Zion Hammond MD at 16:09 EDT Reading Location ID and State: [facility] / [place] , Service support , Management Discussion w/another healthcare provider: Hospitalist (Spoke to hospitalist to inform of patient's history, physical findings and reason for admission.) and Airplane Pilot Supervisor (Plastic/hand surgeon Dr. Edwards) Discharge Plan Disposition Disposition: Acute Care Hospital [facility]
[2024-03-06 16:38] LABS: Partial Thromboplast Time 31.1 Seconds (24.1-36.2)
--- NOTE | 2024-03-06 16:48 | PCM.HP.STD ---
HPI - General General Date of Admission: 03/06/24 Date of Service: 03/06/24 Chief Complaint: Swelling of middle finger of right hand HPI Narrative ONELIA REED, is a 58 M with a significant history of hypertension, diabetes mellitus, and tobacco abuse who presents with swelling of the middle finger of the right hand that started about 2 days ago and has progressively worsened. Associated with his symptom is pain. He denies any fever, nausea or vomiting. [facility] Medical History Wears glasses No natural teeth Diabetes Thyroid disease High cholesterol Blackout History of GI bleed Smoker BiPAP (biphasic positive airway pressure) dependence Sleep apnea Shortness of breath on exertion Chronic cough History of edema Leg cramps History of stress test Cardiology follow-up encounter Elevated LFTs Back pain Dorsalgia of thoracolumbar region Patellofemoral arthritis of right knee Bilateral knee pain Situational syncope Chest pain, unspecified Type 2 diabetes mellitus Essential hypertension Pneumonia due to other streptococci Atherosclerosis of coronary artery of [place] heart without angina pectoris Right bundle-branch block Gastroesophageal reflux disease Hypertriglyceridemia Obstructive sleep apnea Body mass index (BMI) 35 or more Tobacco abuse COPD (chronic obstructive pulmonary disease) MASON (dyspnea on exertion) Morbid obesity due to excess calories Localized edema Long-term use of high-risk medication Hyperlipidemia Difficulty swallowing Stage 2 moderate COPD by GOLD classification Sinus drainage Home Medications ?Medication ?Instructions ?Recorded ?Last Taken ?Type albuterol sulfate 90 mcg/actuation 6.7 g IH PRN PRN Wheezing 12/06/14 Unknown History aerosol inhaler ergocalciferol (vitamin D2) 1,250 50,000 unit PO Q7D 12/06/14 Unknown History mcg (50,000 unit) capsule fluticasone propionate 50 1 spray NASAL DAILY 05/05/16 Unknown History mcg/actuation nasal spray,suspension aspirin 81 mg tablet,delayed 81 mg PO DAILY 08/11/19 Unknown History release duloxetine 60 mg capsule,delayed 60 mg PO DAILY 08/11/19 Unknown History release levothyroxine 50 mcg tablet 75 mcg PO DAILY 08/11/19 Unknown History losartan 50 mg tablet 25 mg PO QDAY 08/11/19 Unknown History mirtazapine 15 mg tablet 45 mg PO QHS 08/11/19 Unknown History multivitamin 1 cap PO DAILY 08/11/19 Unknown History nitroglycerin 0.4 mg sublingual 0.4 mg sublingual ONCE PRN chest 08/11/19 Unknown History tablet (Nitrostat) pain budesonide-formoterol HFA 160 2 puff inhalation BID #10.2 grams 12/05/19 Unknown Rx mcg-4.5 mcg/actuation aerosol inhaler clopidogrel 75 mg tablet 75 mg PO QDAY #90 tabs 12/29/19 Unknown Rx furosemide 40 mg tablet (Lasix) 60 mg PO DAILY 11/15/20 Unknown History metformin 1,000 mg tablet 1,000 mg PO BID 11/15/20 Unknown History isosorbide mononitrate 60 mg 30 mg (1/2 x 60 mg) PO BID #90 tabs 12/03/21 Unknown Rx tablet,extended release 24 hr gabapentin 400 mg capsule 800 mg PO TID 09/18/22 Unknown History omeprazole 40 mg capsule,delayed 40 mg PO DAILY 1 month #30 caps 06/05/23 Unknown Rx release rosuvastatin 20 mg tablet 20 mg PO QHS 1 month #30 tabs 06/05/23 Unknown Rx icosapent ethyl 1 gram capsule 2 g PO BID 06/30/23 Unknown History empagliflozin 25 mg tablet 25 mg PO DAILY #30 tabs 11/24/23 Unknown Rx (Jardiance) Allergy/AdvReac Type Severity Reaction Status Date / Time No Known Allergies Allergy Verified 03/06/24 15:05 Family History Father CVA (cerebral vascular accident) Brother CAD (coronary artery disease) Diabetes Mother COPD (chronic obstructive pulmonary disease) Sarcoidosis Surgical History S/P laparoscopic cholecystectomy H/O umbilical hernia repair History of coronary artery stent placement (~03/25/16) History of carpal tunnel surgery of right wrist History of left heart catheterization Social History household members: spouse current occupational status: disabled Smoking Status: Current every day smoker tobacco type: cigarettes Tobacco: How many years used: 30 second hand exposure: Yes alcohol intake: never substance use type: does not use caffeine: Yes Type: coffee Number of servings: 2 what type of physical activity do you participate in: none ROS ROS Narrative Pertinent positives and pertinent negatives as noted in HPI. All other systems were reviewed and are negative Vital Signs Vital Signs Vital Signs: 03/06/24 15:04 03/06/24 15:07 03/06/24 16:07 Temperature 97.9 F 97.9 F 98.4 F Temperature Source Oral Oral Oral Pulse Rate 72 77 88 Respiratory Rate 13 18 14 Blood Pressure 154/80 H 161/80 H 153/89 H Blood Pressure Mean 104 107 110 Pulse Ox 99 98 94 Oxygen Delivery Method Room Air Room Air Weight Weight: 118.6 kg Body Mass Index (BMI) 38.6 Physical Exam Narrative Physical exam: General: Well-nourished, well-developed. Head: Normocephalic, atraumatic, no tenderness Eyes: Vision is grossly intact. EOMI ENT, no trauma, moist mucous membranes, no rhinorrhea Neck: Nontender, No thyromegaly. CVS: Regular rate and rhythm. S1-S2 present. No murmur, gallop or rub. Respiratory : clear to auscultation bilaterally, chest wall nontender Abdomen: Soft, nontender, nondistended, normal bowel sounds, no masses : Deferred Back: Nontender, no CVA tenderness, no midline spinal tenderness, deformities, step-offs Extremities: Swelling of right hand and tenderness of right hand; with mild swelling of right middle finger compared to others. No swelling or tenderness of left hand. Skin: Normal color, no trauma, abrasions Neuro: Alert, oriented, cranial nerves II through XII grossly intact. Psychiatry: Normal mood. Normal affect. Not depressed. Not anxious. Results Lab / Micro Data 03/06/24 15:50 03/06/24 15:50 Labs: Laboratory Results - last 24 hr 03/06/24 15:50: WBC 11.1 H, RBC 5.08, Hgb 17.4 H, Hct 51.2, MCV 100.8 H, MCH 34.3 H, MCHC 34.0, RDW Std Deviation 47.8 H, RDW Coeff of Autumn 12.7, Plt Count 118 L, MPV 10.9, Immature Gran % (Auto) 0.400, Neut % (Auto) 67.3, Lymph % (Auto) 24.6, [place] % (Auto) 6.3, Eos % (Auto) 1.0, Baso % (Auto) 0.4, Absolute Neuts (auto) 7.5, Absolute Lymphs (auto) 2.73, Nucleated RBC % 0, ESR < 1, PT 14.2, INR 1.1, APTT 31.1, Sodium 136, Potassium 3.7, Chloride 104, Carbon Dioxide 29.0, Anion Gap 4 L, BUN 9, Creatinine 0.92, Estim Creat Clear Calc 112.60, Est GFR (MDRD) Af Amer 109, Est GFR (MDRD) Non-Af 90, BUN/Creatinine Ratio 9.8 L, Glucose 123 H, Lactic Acid 1.5, Calcium 8.8, Total Bilirubin 0.40, AST 45 H, ALT 91 H, Alkaline Phosphatase 100, C-React Prot Ext Range < 2.90, Total Protein 6.7, Albumin 3.9, Globulin 2.8, Albumin/Globulin Ratio 1.4 Imaging Radiology Impression Hand X-Ray 03/06/24 15:50 IMPRESSION: Negative right hand x-rays. 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 Agrees with radiology interpretation. As needed morphine ordered. Started on Unasyn at the emergency department and continued. Plastic surgeon consult Blood pressure is not within goal. Resume home blood pressure medications. Trend blood pressure Blood glucose is stable. Home hypoglycemic regimen continued. Hold metformin. Accu-Cheks with correction scale insulin ordered. Tobacco abuse: Counseled. Nicotine patch prescribed Morbid obesity: BMI of 38.6 kg/m?. Complicates care. Lifestyle modification recommended DVT prophylaxis: SCDs ordered Advance care planning: Discussed with patient and family advanced directives as well as CODE STATUS. Explained various CODE STATUS: FULL CODE, DNR CCA, DNR CCA with no intubation, and DNR CC- and what each meant. Patient elected to be a full code with CPR and intubation if warranted. Order was placed. Patient is his surrogate decision maker time spent on discussion 16 minutes. Time spent in the patient's overall evaluation,decision-making process, review of diagnostic data, adjustment of management, discussion with other providers, nursing and ancillary staff involved in patient's care documentation, 70 minutes. Charges/Coding Visit Charges Inpatient E&M: 46405 Init Hosp L3 Procedures Hospitalists Procedures: 46889 Advncd Care Plan 30 Min
--- NOTE | 2024-03-06 17:44 | ED.RN ---
HAVE NOT RECEIVED ORDER FOR PAIN MEDS.
--- NOTE | 2024-03-06 17:53 | NURSING ---
MED SURG AGYEPONG FLEXOR TENOSYNOVITIS LONG RIGHT FINGER
[2024-03-06] MEDS: Morphine 4 MG/ML Syringe IV ×2 (17:54→22:43)
--- NOTE | 2024-03-06 18:42 | CON.PCM.SX_ITS ---
Assessment & Plan Assessment/Plan (1) Flexor tenosynovitis of finger: PLAN: Patient has right long finger flexor tenosynovitis. In the setting of poorly controlled diabetes, and failure of outpatient antibiotics and subacute nature of the infection, I think it is important that we take him to the operating room immediately for incision and drainage of the right long finger flexor tendon sheath, and possible carpal tunnel release/exploration of any other concerning areas for fluid collections on the right hand. I talked the patient extensively about the risks of surgery, including bleeding (especially since on ASA/Plavix), worsening infection, damage to surrounding structures (particularly nerves and A2 or A4 pulleys), surgical site wounds (likelihood of leaving wounds open to drain), need for wound care, need for repeat operations, failure to obtain the desired result, DVT/PE, and the risks of anesthesia including . All of their questions were answered, and they agreed to proceed with surgery. I marked his right hand/upper extremity and right long finger. Consents signed. Patient has been seen and evaluated by hospitalist for post-operative admission. HPI Consult Data Date of Consult: 03/06/24 HPI Narrative HPI Narrative: ONELIA REED is a [id number] 58-YO male who is disabled who presents with pain in the right hand, particularly the right long finger, of 2-1/2 weeks duration. Plastic surgery consult today for concern by the emergency department for a flexor tenosynovitis of the right long finger. Patient went to a family medicine physician from an outside facility 2 weeks ago and was placed on prednisone for right hand pain, and presented again to the family medicine physician two days ago on Thursday, 04 March 2024, and was prescribed Bactrim out of concern for a cellulitis in the same location. Throughout the course of the weekend the patient has had continuing pain that was sharp and severe, and improved only by rest and elevation. He therefore started using his diabetic needle to poke at the long finger to relieve pressure. The patient reports that approximately 1 month ago he cut the volar palm superficially with a piece of metal while working around the house, but there was no other inciting trauma (only hand surgery on right hand is remote history of right carpal tunnel release). Today in the emergency department, the patient's x-ray was negative for any foreign bodies or any acute fractures/malalignments. He is afebrile with stable vital signs. His white blood cell count is 11,000. Patient is an every day smoker. He has a complicated past medical history including diabetes (A1c 11.5 today), hypothyroidism, coronary artery disease status post stent placement, COPD, and history of stroke with left-sided facial droop that resolved (on aspirin and Plavix at home). Patient does not have a history of problems with anesthesia (has had his gallbladder out). No personal or family history of bleeding or clotting problems (Caprini score is 4). Patient last ate this morning (breakfast). [facility] Medical History Wears glasses No natural teeth Diabetes Thyroid disease High cholesterol Blackout History of GI bleed Smoker BiPAP (biphasic positive airway pressure) dependence Sleep apnea Shortness of breath on exertion Chronic cough History of edema Leg cramps History of stress test Cardiology follow-up encounter Elevated LFTs Back pain Dorsalgia of thoracolumbar region Patellofemoral arthritis of right knee Bilateral knee pain Situational syncope Chest pain, unspecified Type 2 diabetes mellitus Essential hypertension Pneumonia due to other streptococci Atherosclerosis of coronary artery of [place] heart without angina pectoris Right bundle-branch block Gastroesophageal reflux disease Hypertriglyceridemia Obstructive sleep apnea Body mass index (BMI) 35 or more Tobacco abuse COPD (chronic obstructive pulmonary disease) MASON (dyspnea on exertion) Morbid obesity due to excess calories Localized edema Long-term use of high-risk medication Hyperlipidemia Difficulty swallowing Stage 2 moderate COPD by GOLD classification Sinus drainage Home Medications ?Medication ?Instructions ?Recorded ?Last Taken ?Type albuterol sulfate 90 mcg/actuation 6.7 g IH PRN PRN Wheezing 12/06/14 Unknown History aerosol inhaler ergocalciferol (vitamin D2) 1,250 50,000 unit PO Q7D 12/06/14 Unknown History mcg (50,000 unit) capsule fluticasone propionate 50 1 spray NASAL DAILY 05/05/16 Unknown History mcg/actuation nasal spray,suspension aspirin 81 mg tablet,delayed 81 mg PO DAILY 08/11/19 Unknown History release duloxetine 60 mg capsule,delayed 60 mg PO DAILY 08/11/19 Unknown History release levothyroxine 50 mcg tablet 75 mcg PO DAILY 08/11/19 Unknown History losartan 50 mg tablet 25 mg PO QDAY 08/11/19 Unknown History mirtazapine 15 mg tablet 45 mg PO QHS 08/11/19 Unknown History multivitamin 1 cap PO DAILY 08/11/19 Unknown History nitroglycerin 0.4 mg sublingual 0.4 mg sublingual ONCE PRN chest 08/11/19 Unknown History tablet (Nitrostat) pain budesonide-formoterol HFA 160 2 puff inhalation BID #10.2 grams 12/05/19 Unknown Rx mcg-4.5 mcg/actuation aerosol inhaler clopidogrel 75 mg tablet 75 mg PO QDAY #90 tabs 12/29/19 Unknown Rx furosemide 40 mg tablet (Lasix) 60 mg PO DAILY 11/15/20 Unknown History metformin 1,000 mg tablet 1,000 mg PO BID 11/15/20 Unknown History isosorbide mononitrate 60 mg 30 mg (1/2 x 60 mg) PO BID #90 tabs 12/03/21 Unknown Rx tablet,extended release 24 hr gabapentin 400 mg capsule 800 mg PO TID 09/18/22 Unknown History omeprazole 40 mg capsule,delayed 40 mg PO DAILY 1 month #30 caps 06/05/23 Unknown Rx release rosuvastatin 20 mg tablet 20 mg PO QHS 1 month #30 tabs 06/05/23 Unknown Rx icosapent ethyl 1 gram capsule 2 g PO BID 06/30/23 Unknown History empagliflozin 25 mg tablet 25 mg PO DAILY #30 tabs 11/24/23 Unknown Rx (Jardiance) Allergy/AdvReac Type Severity Reaction Status Date / Time No Known Allergies Allergy Verified 03/06/24 15:05 Family History Father CVA (cerebral vascular accident) Brother CAD (coronary artery disease) Diabetes Mother COPD (chronic obstructive pulmonary disease) Sarcoidosis Surgical History S/P laparoscopic cholecystectomy H/O umbilical hernia repair History of coronary artery stent placement (~03/25/16) History of carpal tunnel surgery of right wrist History of left heart catheterization Social History household members: spouse current occupational status: disabled Smoking Status: Current every day smoker tobacco type: cigarettes Tobacco: How many years used: 30 second hand exposure: Yes alcohol intake: never substance use type: does not use caffeine: Yes Type: coffee Number of servings: 2 what type of physical activity do you participate in: none Physical Exam Narrative Right upper extremity: Small areas of ecchymosis on the volar and dorsal surface overlying P1 of the right long finger. Right long finger fixed in a resting flexed position. Pain with passive extension of the right long finger. Pain along the flexor sheath. Pain is radiating in the palm and there is exquisite tenderness over the A1 bruce of the right long finger. There is fusiform swelling at the base of the digit. There is no pain over the carpal tunnel, and no pain over the volar surfaces of the other fingers or the other A1 pulleys. No pain with axial loading of the wrist. No pain with axial loading of MP, PIP or DIP joints of the right long finger. Motor: Patient is able to bend and extend all MP, PIP, and DIP joints. Sensation: Consistent 3 mm 2-point discrimination on the radial and ulnar borders of the fingers (measured in the emergency department with a caliper with patient's eyes closed) Vascular: Fingers are warm and well-perfused. Lymph Lymphatic: no lymphadenopathy noted Lymphatic Narrative: No lymphadenopathy of the right upper extremity/right axilla Lab / Micro Data 03/06/24 15:50 03/06/24 15:50 Labs: Laboratory Results - last 24 hr 03/06/24 15:50: WBC 11.1 H, RBC 5.08, Hgb 17.4 H, Hct 51.2, MCV 100.8 H, MCH 34.3 H, MCHC 34.0, RDW Std Deviation 47.8 H, RDW Coeff of Autumn 12.7, Plt Count 118 L, MPV 10.9, Immature Gran % (Auto) 0.400, Neut % (Auto) 67.3, Lymph % (Auto) 24.6, [place] % (Auto) 6.3, Eos % (Auto) 1.0, Baso % (Auto) 0.4, Absolute Neuts (auto) 7.5, Absolute Lymphs (auto) 2.73, Nucleated RBC % 0, ESR < 1, PT 14.2, INR 1.1, APTT 31.1, Sodium 136, Potassium 3.7, Chloride 104, Carbon Dioxide 29.0, Anion Gap 4 L, BUN 9, Creatinine 0.92, Estim Creat Clear Calc 112.60, Est GFR (MDRD) Af Amer 109, Est GFR (MDRD) Non-Af 90, BUN/Creatinine Ratio 9.8 L, Glucose 123 H, Lactic Acid 1.5, Calcium 8.8, Total Bilirubin 0.40, AST 45 H, ALT 91 H, Alkaline Phosphatase 100, C-React Prot Ext Range < 2.90, Total Protein 6.7, Albumin 3.9, Globulin 2.8, Albumin/Globulin Ratio 1.4 Imaging Radiology Impression Hand X-Ray 03/06/24 15:50 IMPRESSION: Negative right hand x-rays. Electronically Signed: Zion Hammond MD at 16:09 EDT , Charges/Coding Visit Charges Office Visits / Consults: [id number] OV L5 New 60min (with 57 modifier )
[2024-03-06] MEDS: Diphth,Pertuss(Acell),Tet Vac 0.5 ML Vial IM (19:23)
--- NOTE | 2024-03-06 19:42 | OP.PCM_ITS ---
Operative Report Date of Procedure: 03/06/24 Surgery/Procedure Date: 06 March 2024 Incision/Procedure Start Time: 8:06 pm Incision Close/Procedure End Time: 9 pm (54 min) (Tourniquet time 35 min) Surgeon: Sergio Edwards MD Patient: Lisandro Garibay Registered Nurse [employer] Guide: TRINI Martinez (held retractors and help position the hand during the dissection) Pre-Op/Pre-Procedure Diagnosis: Right long finger flexor tenosynovitis. Post-Op/Post-Procedure Diagnosis:Same Procedure(s): 1.? Incision and drainage of right long finger with A1 bruce release ( A5 bruce release for the treatment of flexor tenosynovitis, CPT code 95600 2) Incision and drainage right long finger volar subcutaneous abscess (volar kendall rface of proximal phalanx (P1)), CPT code 96133 Anesthesia: General EBL: 10 cc Antibiotics: Unasyn (in the ED, 3 grams IV) Intraoperative fluids: 700 cc NS UOP: unmeasured, no jean Findings: * Purulence within the flexor tendon sheath of the right long finger * Purulence within the subcutaneous tissues of the right long finger P1 volar surface (subcutaneous abscess) * No purulence coming from the proximal palm/carpal tunnel when this area was milked/manipulated Indications: Lisandro Garibay is a 58-year-old male with a complicated past medical history including poorly controlled diabetes who presents with a right long finger flexor tenosynovitis. I talked to him and his family extensively about the risks of surgery including bleeding, risk of anesthesia on his heart and lungs, need for repeat surgeries, damage to nerves and arteries and other surrounding structures. He understood that this was an emergent procedure, and agreed to proceed. Procedure Details: Consent was obtained preoperatively.? The patient was brought to the operating room and placed in the supine position with an armboard in place and a tournique t was placed on the right upper extremity on the arm. SCDs were placed and were on and activated for induction. A sign in was completed and general anesthesia was induced.? The right upper extremity was then prepped and draped in sterile fashion and a presurgical timeout was performed. Using a 15 blade scalpel, an oblique incision was made over the right long finger A1 bruce in the palm, and dissection was carefully taken with tenotomy scissors down to the A1 bruce and A1 bruce was released longitudinally with a 15 blade scalpel. Purulence was encountered and cultured , and a small piece of the A1 bruce tissue was also sent for culture. Care was taken to protect the neurovascular bundles. I attempted to milk purulence from the palm (from proximally) but there was none, and therefore we decided not to explore the carpal tunnel. There was purulence coming from distally from the sheath of the rest of the right long finger. There was also purulence coming from the subcutaneous tissues and therefore the incision was extended over the volar surface of P1 and a Shakira style incision (creating a triangular flap with the apex at the MP flexion crease). Purulence was encountered within the subcutaneous tissue as there appeared to be an abscess with loculations. This was washed out with copious amounts normal saline. Care was again taken to preserve the neurovascular bundles while raising the triangular Shakira flap. We then turned our attention distally to make a counterincision over the A5 bruce to vent the tendon distally. I made a transverse incision over the DIP joint with care taken to protect the flexor tendon and the adjacent neurovascular bundles. Tenotomy scissors were used to dissect down to the A5 bruce and it was released with a vertical incision using a 15 blade scalpel. A 24-gauge Angiocath was then used to irrigate with NS within the tendon sheath, and it was confirmed that the irrigation was being delivered through the tendon sheath because it was exiting through the A1 bruce incision on the palm. 250 cc of NS was irrigated through the tendon sheath, and an additional 3 liters of NS was used to irrigate the proximal and distal wounds over the vented pulleys including the abscess cavity that was encountered. We then let the tourniquet down. There was minimal bleeding that was stopped with bipolar electrocautery. The right long finger was white at first, but the arteries appear to be in spasm and slowly began to dilate. I confirmed Doppler signal distal to the proximal incision, and by the time Doppler signal was confi rmed the fingertip was now pink with capillary refill. The incisions were left open except the apex of the proximal Shakira incision was approximated with 4-0 nylon suture to its nikolski position. The wounds were packed with quarter inch iodoform gauze and the hand was wrapped with gauze Manuel and Ethan (loosely). The patient tolerated the procedure well and was extubated. All counts were correct at the completion of the case. Patient was taken the PACU in stable condition. Specimens: Cultures Complications: No immediate post-operative complications POST OPERATIVE PLAN: Patient has been admitted to medicine. We will begin 3 times per day Dial soap soaks in the morning. N.p.o. at midnight. Continue elevation of the hand above the heart. Agree with broad-spectrum antibiotics and infectious disease consultation. ?
--- NOTE | 2024-03-06 20:45 | PCM.PRE.AN2 ---
ASA Classification* ASA Classification ASA Classification: 3 and E Assessment & Plan Anesthesia* Anesthesia Assessment Anesthesia Assessment: Discussed sedation and/or anesthesia options, risks, benefits, and alternatives with patient/parents/legal guardian/POA. Questions invited. The patient/parents/legal guardian/POA seems to understand and agrees to proceed with anesthesia plan. Reviewed the physical assessment, medical history, allergy history and patient home medications list prior to surgery/procedure/anesthetic and documented any changes. Performed airway and anesthesia risk assessments. Anesthesia Type Anesthesia Type: General History Source History Obtained from:: Patient and Chart Anesthesia Focused Assessment* Temperature: 97.9 F Pulse Rate: 81 Blood Pressure: 154/89 Respiratory Rate: 14 Pulse Ox: 99 Oxygen Delivery Method: Room Air Airway Assessment Mouth opens: >3 cm Mallampati Score: III Teeth Condition: Missing (Edentulous) Neck Range of motion (ROM): Limited ROM (Somewhat decreased extension) Comment: Full ford Focused Labs Anesthesia Preop lab: CBC WBC 11.1 K/mm3 (4.4-11.0) H 03/06/24 15:50 RBC 5.08 M/mm3 (4.6-6.2) 03/06/24 15:50 Hgb 17.4 g/dL (13.0-16.5) H 03/06/24 15:50 Hct 51.2 % (40-54) 03/06/24 15:50 Plt Count 118 K/mm3 (150-450) L 03/06/24 15:50 CHEMISTRY Potassium 3.7 mmol/L (3.5-5.1) 03/06/24 15:50 Sodium 136 mmol/L (136-145) 03/06/24 15:50 BUN 9 mg/dL (7-18) 03/06/24 15:50 Creatinine 0.92 mg/dL (0.70-1.30) 03/06/24 15:50 Glucose 123 mg/dL (74-106) H 03/06/24 15:50 POC Glucose 179 mg/dL (74-106) H 11/24/23 12:49 TSH 4.77 uIU/mL (0.358-3.74) H 11/17/23 08:46 COAG PT 14.2 SECONDS (11.7-14.9) 03/06/24 15:50 Pre-Assessment Diagnosis/Proposed Procedure Planned Operative Procedure(s): Irrigation and debridement of right hand Anesthesia History 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 When Was Last Pacemaker Check QUESTION #4 FULL TEXT: You/Your Family Experience fever (hyperthermia) with Anesthesia Last Oral Intake Last Oral intake: Last Oral Intake NPO since 15:00 03/06/24 18:14 Meds taken in AM with sips of water? Meds patient instructed to take am of surgery Any additional information?: Yes NPO since: 15:30 (Patient had soda at 1530. No food since breakfast.) PONV PONV - welfare project manager: PONV - welfare project manager Female HX of Motion Sickness HX of N/V After Surgery Non-Smoker Duration of Surgery greater than 60 minutes Number of Risk Factors PONV Score Height & Weight Height & Weight: Anesthesia: Height & Weight Height 5 ft 9 in 03/06/24 18:14 Weight: 118.6 kg 03/06/24 18:14 Body Mass Index (BMI) 38.6 03/06/24 18:14 Respiratory Assessment Respiratory Assessment - welfare project manager: Respiratory Tract Infection Hx - welfare project manager Hx Respiratory Tract Infection No 06/30/23 12:45 STOP Sleep Apnea STOP Sleep Apnea - welfare project manager: STOP Sleep Apnea - welfare project manager Hx Hypertension Yes 11/24/23 14:46 Hx Sleep Apnea Yes 03/06/24 18:14 CPAP No 03/06/24 18:14 BIPAP Yes 03/06/24 18:14 Do you snore loudly (louder than talking or can be heard Do you often feel tired/ fatigued/ sleepy during daytime? Has anyone observed you stop breathing during sleep? STOP Results Positive 03/06/24 18:14 QUESTION #5 FULL TEXT : Do you snore loudly (louder than talking or can be heard through closed doors)? 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 Specify any problems Hx of Preganancy in last 3 Months Nurse Filling Out Transfusion & Questions: Date: Time: Patient unable to answer at this time (ie. confused, unrespo /Reproduction History /Reproductive History - welfare project manager: /Reproductive Hx- welfare project manager Hx Now Gestational Age (in weeks): EDC: Hx Hx Para Hx Section SAB Active Medications Active Medications: Current Medications Generic Name Dose Route Start Last Admin Trade Name Freq PRN Reason Stop Dose Admin Aspirin 81 mg 03/07/24 10:00 Aspirin E.C. 81 Mg Tablet PO DAILY [facility] Clopidogrel Bisulfate 75 mg 03/07/24 10:00 Clopidogrel Bisulfate 75 Mg Tablet PO DAILY [facility] Duloxetine HCl 60 mg 03/07/24 10:00 Duloxetine Hcl 60 Mg Capsule PO DAILY [facility] Empagliflozin 25 mg 03/07/24 10:00 Empagliflozin 25 Mg Tablet PO DAILY [facility] Furosemide 60 mg 03/07/24 10:00 Furosemide 20 Mg Tablet PO DAILY [facility] Protocol Glucagon 1 mg 03/06/24 19:08 Glucagon 1 Mg/Ml Syringe IM X1 PRN Hypoglycemia Protocol Lactated Ringer's 1,000 mls @ 75 mls/hr 03/06/24 17:15 IV .[id number] JAMES Ampicillin Sodium/Sulbactam 112 mls @ 150 mls/hr 03/07/24 00:00 Sodium 3 gm/ Sodium Chloride IV Q6 JAMES Dextrose 250 mls @ 0 mls/hr 03/06/24 19:08 Dextrose 10%-Water IV .Q0M PRN HYPOGLYCEMIA Protocol As Directed Insulin Human Lispro 0 unit 03/07/24 00:00 Insulin Lispro 100 Unit/Ml Insuln.Pen SC Q6 [facility] Protocol Morphine Sulfate 4 mg 03/06/24 17:04 Morphine 4 Mg/Ml Syringe IV Q4H PRN PRN Pain Score 4-10 Nicotine 21 mg 03/06/24 19:00 Nicotine 21 Mg Patch TD DAILY [facility] Ondansetron HCl 4 mg 03/06/24 17:04 Ondansetron 4 Mg/2 Ml Vial IV Q8H PRN PRN NAUSEA/VOMITING Senna/Docusate Sodium 2 tablet 03/06/24 17:04 Senna/Docusate Sodium 1 Tablet PO BID PRN PRN Constipation PFSH Medical History Wears glasses No natural teeth Diabetes Thyroid disease High cholesterol Blackout History of GI bleed Smoker BiPAP (biphasic positive airway pressure) dependence Sleep apnea Shortness of breath on exertion Chronic cough History of edema Leg cramps History of stress test Cardiology follow-up encounter Elevated LFTs Back pain Dorsalgia of thoracolumbar region Patellofemoral arthritis of right knee Bilateral knee pain Situational syncope Chest pain, unspecified Type 2 diabetes mellitus Essential hypertension Pneumonia due to other streptococci Atherosclerosis of coronary artery of [place] heart without angina pectoris Right bundle-branch block Gastroesophageal reflux disease Hypertriglyceridemia Obstructive sleep apnea Body mass index (BMI) 35 or more Tobacco abuse COPD (chronic obstructive pulmonary disease) MASON (dyspnea on exertion) Morbid obesity due to excess calories Localized edema Long-term use of high-risk medication Hyperlipidemia Difficulty swallowing Stage 2 moderate COPD by GOLD classification Sinus drainage Home Medications ?Medication ?Instructions ?Recorded ?Last Taken ?Type albuterol sulfate 90 mcg/actuation 6.7 g IH PRN PRN Wheezing 12/06/14 Unknown History aerosol inhaler ergocalciferol (vitamin D2) 1,250 50,000 unit PO Q7D 12/06/14 Unknown History mcg (50,000 unit) capsule fluticasone propionate 50 1 spray NASAL DAILY 05/05/16 Unknown History mcg/actuation nasal spray,suspension aspirin 81 mg tablet,delayed 81 mg PO DAILY 08/11/19 Unknown History release duloxetine 60 mg capsule,delayed 60 mg PO DAILY 08/11/19 Unknown History release levothyroxine 50 mcg tablet 75 mcg PO DAILY 08/11/19 Unknown History losartan 50 mg tablet 25 mg PO QDAY 08/11/19 Unknown History mirtazapine 15 mg tablet 45 mg PO QHS 08/11/19 Unknown History multivitamin 1 cap PO DAILY 08/11/19 Unknown History nitroglycerin 0.4 mg sublingual 0.4 mg sublingual ONCE PRN chest 08/11/19 Unknown History tablet (Nitrostat) pain budesonide-formoterol HFA 160 2 puff inhalation BID #10.2 grams 12/05/19 Unknown Rx mcg-4.5 mcg/actuation aerosol inhaler clopidogrel 75 mg tablet 75 mg PO QDAY #90 tabs 12/29/19 Unknown Rx furosemide 40 mg tablet (Lasix) 60 mg PO DAILY 11/15/20 Unknown History metformin 1,000 mg tablet 1,000 mg PO BID 11/15/20 Unknown History isosorbide mononitrate 60 mg 30 mg (1/2 x 60 mg) PO BID #90 tabs 12/03/21 Unknown Rx tablet,extended release 24 hr gabapentin 400 mg capsule 800 mg PO TID 09/18/22 Unknown History omeprazole 40 mg capsule,delayed 40 mg PO DAILY 1 month #30 caps 06/05/23 Unknown Rx release rosuvastatin 20 mg tablet 20 mg PO QHS 1 month #30 tabs 06/05/23 Unknown Rx icosapent ethyl 1 gram capsule 2 g PO BID 06/30/23 Unknown History empagliflozin 25 mg tablet 25 mg PO DAILY #30 tabs 11/24/23 Unknown Rx (Jardiance) Allergy/AdvReac Type Severity Reaction Status Date / Time No Known Allergies Allergy Verified 03/06/24 15:05 Family History Father CVA (cerebral vascular accident) Brother CAD (coronary artery disease) Diabetes Mother COPD (chronic obstructive pulmonary disease) Sarcoidosis Surgical History S/P laparoscopic cholecystectomy H/O umbilical hernia repair History of coronary artery stent placement (~03/25/16) History of carpal tunnel surgery of right wrist History of left heart catheterization Social History household members: spouse current occupational status: disabled Smoking Status: Current every day smoker tobacco type: cigarettes Tobacco: How many years used: 30 second hand exposure: Yes alcohol intake: never substance use type: does not use caffeine: Yes Type: coffee Number of servings: 2 what type of physical activity do you participate in: none Review of Systems (Anesthesia) ROS Narrative System reviewed and no additional complaints, except as documented.
--- NOTE | 2024-03-06 21:25 | PCM.POST.ANE ---
Anesthesia: Postop Eval I Current Vital Signs Temperature: 98.8 F Pulse Rate: 80 Blood Pressure: 158/87 Respiratory Rate: 16 Pulse Ox: 94 Oxygen Delivery Method: Room Air Assessment Airway patent: Yes Spontaneous unlabored respirations: Yes Mental status: Awake nausea: No Vomiting: No Anesthesia Complication: No Fluid Hydration Crystalloid volume administer (ml): 700 Total IV fluid infused: 700 Progress Note Anesthesia document: Postop Eval 1 completed: Yes
[2024-03-06] MEDS: Ipratropium/Albuterol Sulfate 3 ML AMPUL.NEB INHALATION (21:40)
--- NOTE | 2024-03-06 21:40 | PCM.POSTANE2 ---
Anesthesia Postop Eval I Sum Postop Eval Completion status Anesthesia document: Postop Eval 1 completed: Yes Anesthesia Postop Eval I Summary Anesthesia Postop Eval I Summary: Anesthesia Postop Eval I: Assessment Summary Airway patent Yes 03/06/24 21:30 Spontaneous unlabored Yes 03/06/24 21:30 respirations Mental status Awake 03/06/24 21:30 nausea No 03/06/24 21:30 Vomiting No 03/06/24 21:30 Anesthesia Postop Eval I: Fluid Summary Crystalloid volume administer 700 03/06/24 21:30 (ml) Colloids volume administered ( ml) Blood Product volume administered (ml) Total IV fluid infused 700 03/06/24 21:30 Anesthesia Postop Eval I: Summary Notes Anesthesia Complication No 03/06/24 21:30 Anesthesia Complication Comment: Post-operative progress note Anesthesia: Postop Eval II Evaluation Mental status: Awake and Calm Pain Level: 5 nausea: No Vomiting: No Complications Anesthesia Complication: No
[2024-03-06] MEDS: 0.9% Normal Saline (1000mL) 1,000 ML 15 ML IV (22:09)
[2024-03-07] VITALS (10 sets, daily range): BP systolic 118–148; BP diastolic 65–90; PULSE 59–72; RESP 14–20; TEMP 36.1–37.2; O2SAT 86–97; BMI 37.3
[2024-03-07] MEDS: Ampicillin/Sulbactam 3 GM in 0.9% Normal Saline (100mL MB+) 100 ML IV ×5 (00:27→23:35)
[2024-03-07] MEDS: Morphine 4 MG/ML Syringe IV ×3 (02:55→20:52)
[2024-03-07] MEDS: oxyCODONE 5 MG Tablet PO ×4 (05:18→23:29)
[2024-03-07 05:28] LABS: Bedside Glucose 137 mg/dL (74-106)
[2024-03-07 07:08] LABS: Bedside Glucose 131 mg/dL (74-106)
[2024-03-07 07:21] LABS: Absolute Lymphocyte Count 2.98 X10^3/uL (0.83-4.51); Absolute Neutrophil Count 11.4 X10^3/uL (2.0-7.7); Basophil# 0.07 X10^3/uL; Basophil% 0.5 % (0-1); Eosinophil# 0.08 X10^3/uL; Eosinophils% 0.5 % (0-5); Hematocrit 53.2 % (40-54); Hemoglobin 17.9 g/dL (13.0-16.5); Lymphocyte # 2.98 X10^3/ul (0.83-4.51); Lymphocyte % 19.2 % (19-41); Mean Corp Hgb Conc 33.6 g/dL (32-36); Mean Corpuscular Hgb 34.7 pg (27.0-32.0); Mean Corpuscular Volume 103.1 fL (80-94); Mean Platelet Vol. 11.1 fl (6.2-12.0); Monocyte% 5.8 % (0-10); NRBC Flagged by Analyzer 0 % (0-5); Neutrophil % 73.6 % (47-70); Platelet Count 151 K/mm3 (150-450); RBC Distribution Width CV 12.8 % (11.6-14.6); RBC Distribution Width SD 48.8 fl (35.1-43.9); Red Blood Count 5.16 M/mm3 (4.6-6.2); White Blood Count 15.5 K/mm3 (4.4-11.0)
[2024-03-07] MEDS: Furosemide 20 MG Tablet 60 MG PO (07:50)
[2024-03-07] MEDS: Empagliflozin 25 MG Tablet PO (07:51)
[2024-03-07] MEDS: DULoxetine Hcl 60 MG Capsule PO (07:51)
[2024-03-07] MEDS: Vancomycin HCl 2,000 MG in 0.9% Normal Saline (500mL Bag) 500 ML 250 MG IV (09:19)
[2024-03-07 09:21] LABS: Hemoglobin A1c 7.8 % (3.8-5.6)
--- NOTE | 2024-03-07 09:21 | PN.SURG_ITS ---
Subjective Subjective Diong ok this morning. Tolerated soaks and packing. No numbness. Some pain. Objective Data Objective Data Vital Signs: Vital Signs Temp Pulse Resp BP Pulse Ox O2 Del Method O2 Flow Rate 98.4 F 68 20 H 148/89 H 95 Nasal Cannula 4 03/07/24 06:24 03/07/24 06:24 03/07/24 06:24 03/07/24 06:24 03/07/24 06:24 03/07/24 06:24 03/07/24 06:24 Oxygen Flow Rate (L/min) 4 Oxygen Delivery Method Nasal Cannula Weight: 253 lb 1.6 oz Body Mass Index (BMI) 37.3 Intake & Output: Intake and Output for Last 24 Hours 03/05/24 03/06/24 03/07/24 23:59 23:59 23:59 Intake Total Output Total 0 / 0 Balance Lab / Micro Data 03/07/24 06:29 03/06/24 15:50 Labs: Laboratory Results - last 24 hr 03/06/24 15:50: WBC 11.1 H, RBC 5.08, Hgb 17.4 H, Hct 51.2, MCV 100.8 H, MCH 34.3 H, MCHC 34.0, RDW Std Deviation 47.8 H, RDW Coeff of Autumn 12.7, Plt Count 118 L, MPV 10.9, Immature Gran % (Auto) 0.400, Neut % (Auto) 67.3, Lymph % (Auto) 24.6, [place] % (Auto) 6.3, Eos % (Auto) 1.0, Baso % (Auto) 0.4, Absolute Neuts (auto) 7.5, Absolute Lymphs (auto) 2.73, Nucleated RBC % 0, ESR < 1, PT 14.2, INR 1.1, APTT 31.1, Sodium 136, Potassium 3.7, Chloride 104, Carbon Dioxide 29.0, Anion Gap 4 L, BUN 9, Creatinine 0.92, Estim Creat Clear Calc 112.60, Est GFR (MDRD) Af Amer 109, Est GFR (MDRD) Non-Af 90, BUN/Creatinine Ratio 9.8 L, Glucose 123 H, Lactic Acid 1.5, Calcium 8.8, Total Bilirubin 0.40, AST 45 H, ALT 91 H, Alkaline Phosphatase 100, C-React Prot Ext Range < 2.90, Total Protein 6.7, Albumin 3.9, Globulin 2.8, Albumin/Globulin Ratio 1.4 03/06/24 22:52: POC Glucose 137 H 03/07/24 05:43: POC Glucose 131 H 03/07/24 06:29: WBC 15.5 H, RBC 5.16, Hgb 17.9 H, Hct 53.2, MCV 103.1 H, MCH 34.7 H, MCHC 33.6, RDW Std Deviation 48.8 H, RDW Coeff of Autumn 12.8, Plt Count 151, MPV 11.1, Immature Gran % (Auto) 0.400, Neut % (Auto) 73.6 H, Lymph % (Auto) 19.2, [place] % (Auto) 5.8, Eos % (Auto) 0.5, Baso % (Auto) 0.5, Absolute Neuts (auto) 11.4 H, Absolute Lymphs (auto) 2.98, Nucleated RBC % 0, Hemoglobin A1c 7.8 H Radiography Diagnostic Testing: Radiology Impression Hand X-Ray 03/06/24 15:50 IMPRESSION: Negative right hand x-rays. Electronically Signed: Zion Hammond MD at 16:09 EDT Reading Location ID and State: [facility] / [place] , Service support , Physical Exam Narrative RUE Seen and examined. No purulence from incisions. No pain over the palm or over the carpal tunnel. No signs of ascending infection. No pain with axial loading of any of the RLF joints. Adequately packed. Motor: Able to bend MP, PIP, and DIP joints of the right long finger, but limited 2/2 swelling. Sensation: Intact to light touch on the radial and ulnar borders of the right long finger. Vascular: <2 second capillary refill on the right long finger. Const General Appearance: cooperative Eyes EOMs intact bilaterally Neck full ROM Resp normal respiratory effort Cardio regular rate Extremity Extremity Narrative: SCDs on and activated Assessment & Plan Assessment/Plan (1) Flexor tenosynovitis of finger: PLAN: OK for diet today (no surgery) Continue TID Dial soap soaks and packing F/u cultures (recommend infectious disease consult) PSU will continue to follow. Charges/Coding Procedures Integumentary [id number]: [id number] Global Visit
--- NOTE | 2024-03-07 09:39 | PCM.RX.CS ---
Consult Antibiotic Management Pharmacy has been consulted to manage selected antibiotic: Vancomycin Type of Intervention Type of Consult: New start Suspected Infection Suspected Infection: Skin/Soft tissue Goal Trough Goal Trough: 15-20 mcg/mL Pharmacy Plan for Drug Dosing Pharmacy Plan for Drug Dosing: NEW START IV VANCOMYCIN Consulting Physician: Dr. Brewer Indication: SSTI Goal Trough: 15-20 SrCr: 0.92 CrCl: 112 mL/min Comments: Patient had 2g IV loading dose ordered and administered 03/07 @0919 Vancomycin Dose: 1500mg IV Q8h to start 03/07 @1700 Pending Level: 03/08/24 @0830, prior to 4th total dose of vancomycin per protocol Pharmacy Service will continue to monitor and adjust dosing as required.
[2024-03-07 10:47] LABS: Anion Gap 7 (5-15); BUN 16 mg/dL (7-18); BUN/Creat Ratio 17.6 RATIO (10-20); Calcium,Total 8.9 mg/dL (8.5-10.1); Chloride 106 mmol/L (98-107); Creatinine, Serum 0.91 mg/dL (0.70-1.30); EST Glomerular Filtration Rate 91 mL/min (>60); Est Glom Filt Rate - Afr Amer 110 mL/min (>60); Estimated Creatinine Clearance 111.91 ml/min; Glucose 110 mg/dL (74-106); Potassium 4.4 mmol/L (3.5-5.1); Sodium Level 137 mmol/L (136-145)
[2024-03-07 11:29] LABS: Bedside Glucose 92 mg/dL (74-106)
--- NOTE | 2024-03-07 12:10 | CASEMGMT ---
CORRY KING Assessment: Face to Face with pt for initial transition planning/care coordination assessment. CORRY KING introduced self and role at [facility], pt voices understanding and consents to assessment. Pt is A&O x4 and answers all questions appropriately at this time. Pt lying in bed in no distress. Care providers, pharmacy, and demographics verified/updated. Admitting Dx: flexor tenosynovitis Strata Score: 3 PCP:Viola Gunderson NP [facility] Specialists:Denies Preferred Pharmacy:[facility] Insurance: [employer] Prescription Benefit: yes LNOK: Aleisha Garibay, Living Arrangements: Pt lives with in a ground level apt with 4 steps to enter with a rail. Pt reports he is I in ADLs and denies concerns at home. Transportation: Pt drives self and denies concerns with transportation. DME:cane, walker, pox, BP cuff, bipap, BGM with sufficient supply of lancets and strips, insulin with sufficient supply of insulin and needles. HHC/SNF: Denies hx of Pt states no concerns with going home at time of dc. Pt does not use AD to ambulate. Pt feels he can care for his wound at home. He states that he has done packing to his face when he has had MRSA in the past. Pt states no further concerns/needs. CM to follow. Advised pt to ask CM if any further question/concerns/needs arise, voices understanding. Pt Goal: Home Plan: Home [facility]y [place] CM
--- NOTE | 2024-03-07 14:22 | WOUNDNOTE ---
wound photo: right hand
--- NOTE | 2024-03-07 14:22 | WOUNDNOTE ---
skin photo: right hand
[2024-03-07 16:19] LABS: Bedside Glucose 127 mg/dL (74-106)
[2024-03-07] MEDS: Juven (unflavored) Packet 1 PACKET PO (16:42)
[2024-03-07] MEDS: Vancomycin HCl 1,500 MG in 0.9% Normal Saline (500mL Bag) 500 ML 250 MG IV (17:29)
--- NOTE | 2024-03-07 17:53 | PN.HOSP_ITS ---
Reason for Visit Reason for Visit: Diagnoses Type 2 diabetes mellitus with diabetic polyneuropathy (03/06/24) Morbid (severe) obesity due to excess calories (03/06/24) Essential (primary) hypertension (03/06/24) Unspecified synovitis and tenosynovitis, unspecified hand (03/06/24) [facility] (current) use of insulin (03/06/24) Subjective Subjective Patient with some pain in finger but overall feeling fair. Denies chest pain or shortness of breath Objective Data Objective Data Vital Signs: Vital Signs Temp Pulse Resp BP Pulse Ox O2 Del Method O2 Flow Rate 98.2 F 72 16 118/65 86 Room Air 2 03/07/24 14:59 03/07/24 14:59 03/07/24 14:59 03/07/24 14:59 03/07/24 15:00 03/07/24 15:00 03/07/24 14:59 Oxygen Flow Rate (L/min) 2 Oxygen Delivery Method Room Air Weight: 114.804 kg Body Mass Index (BMI) 37.3 Intake & Output: Intake and Output for Last 24 Hours 03/05/24 03/06/24 03/07/24 23:59 23:59 23:59 Intake Total 112 / 112 1553 / 1553 Output Total 0 / 0 Balance 112 / 112 1553 / 1553 Lab / Micro Data 03/07/24 06:29 03/07/24 06:29 Labs: Laboratory Results - last 24 hr 03/06/24 22:52: POC Glucose 137 H 03/07/24 05:43: POC Glucose 131 H 03/07/24 06:29: WBC 15.5 H, RBC 5.16, Hgb 17.9 H, Hct 53.2, MCV 103.1 H, MCH 34.7 H, MCHC 33.6, RDW Std Deviation 48.8 H, RDW Coeff of Autumn 12.8, Plt Count 151, MPV 11.1, Immature Gran % (Auto) 0.400, Neut % (Auto) 73.6 H, Lymph % (Auto) 19.2, [place] % (Auto) 5.8, Eos % (Auto) 0.5, Baso % (Auto) 0.5, Absolute Neuts (auto) 11.4 H, Absolute Lymphs (auto) 2.98, Nucleated RBC % 0, Sodium 137, Potassium 4.4, Chloride 106, Carbon Dioxide 24.0, Anion Gap 7, BUN 16, Creatinine 0.91, Estim Creat Clear Calc 111.91, Est GFR (MDRD) Af Amer 110, Est GFR (MDRD) Non-Af 91, BUN/Creatinine Ratio 17.6, Glucose 110 H, Hemoglobin A1c 7.8 H, Calcium 8.9 03/07/24 11:12: POC Glucose 92 03/07/24 15:59: POC Glucose 127 H Micro: Microbiology 03/06/24 21:00 Wound Drainage - Aerobic & Anaerobic Swabs Gram Stain - Final 03/06/24 21:00 Wound Drainage - Aerobic & Anaerobic Swabs Wound Culture - Preliminary Staphylococcus aureus 03/06/24 21:00 Tissue - Hand Gram Stain - Final Physical Exam Narrative General: Alert, oriented, no apparent distress HEENT: Atraumatic, normocephalic Eyes: Anicteric, normal conjunctiva, extraocular movements grossly intact Neck: Supple Respiratory: Diminished bilaterally, normal respiratory effort Cardiovascular: Regular rate GI: Soft, nontender, nondistended Extremities: No significant pitting edema Musculoskeletal: Moving all extremities Neuro: No overt focal neurological deficits Skin: Patient soaking right hand Psych: Cooperative Assessment & Plan Assessment/Plan (1) Flexor tenosynovitis of finger: PLAN: Plan # Flexor tenosynovitis of right middle finger secondary to Staph aureus -Patient went to the OR 03/06 with washout, prelim IntraOp cultures growing staph, waiting further sensitivities -Will likely need ID consult -Discussed with Dr. Edwards -Patient n.p.o. at midnight in the event he needs further intervention 03/08 -Continue broad-spectrum antibiotics at this time #COPD -Continue home inhalers -Patient noted to be 86% on room air but saturating well on 2 L not been resumed on inhalers yet, suspect this is the culprit will monitor closely, denied any respiratory symptoms #Type 2 diabetes mellitus -Glucose checks and sliding scale insulin #CANDELARIA -Resume home NIPPV # History of CVA/CAD s/o stenting -Continue aspirin, statin, Plavix #Tobacco use -Advise cessation -Nicotine replacement available if desired #GERD -Continue PPI #Hypothyroidism -Continue Synthroid # Depression -Continue Cymbalta -Continue mirtazapine #DVT ppx: SCDs Angeles Brewer, MD Time spent in the patient's overall evaluation,decision-making process, review of diagnostic data, adjustment of management, discussion with other providers, nursing nursing and ancillary staff involved in patient's care documentation, 37 minutes Charges/Coding Visit Charges Inpatient E&M: 99883 Subs Hosp L2
[2024-03-07] MEDS: Budesonide Respules 0.5 MG/2 ML AMPUL.NEB. INHALATION (19:15)
[2024-03-07] MEDS: Ipratropium/Albuterol Sulfate 3 ML AMPUL.NEB INHALATION (19:15)
[2024-03-07] MEDS: 0.9% Saline Lock 10 ML Syringe IV (20:52)
[2024-03-07] MEDS: Gabapentin 800 MG Tablet PO (20:57)
[2024-03-07] MEDS: Atorvastatin Calcium 40 MG Tablet PO (20:58)
[2024-03-07] MEDS: Mirtazapine 15 MG Tablet 45 MG PO (20:58)
[2024-03-07 23:54] LABS: Bedside Glucose 109 mg/dL (74-106)
[2024-03-08] VITALS (10 sets, daily range): BP systolic 122–149; BP diastolic 68–86; PULSE 57–78; RESP 14–18; TEMP 35.7–37; O2SAT 88–97
[2024-03-08] MEDS: Vancomycin HCl 1,500 MG in 0.9% Normal Saline (500mL Bag) 500 ML 250 MG IV (00:50)
[2024-03-08] MEDS: Morphine 4 MG/ML Syringe IV ×4 (04:55→23:36)
[2024-03-08] MEDS: Ampicillin/Sulbactam 3 GM in 0.9% Normal Saline (100mL MB+) 100 ML IV (04:58)
[2024-03-08] MEDS: 0.9% Saline Lock 10 ML Syringe IV (04:58)
[2024-03-08] MEDS: Gabapentin 800 MG Tablet PO ×3 (05:07→21:48)
[2024-03-08] MEDS: Levothyroxine 75 MCG Tablet PO (05:07)
[2024-03-08 05:18] LABS: Bedside Glucose 94 mg/dL (74-106)
[2024-03-08 06:18] LABS: Absolute Neutrophil Count 4.8 X10^3/uL (2.0-7.7); Basophil# 0.03 X10^3/uL; Basophil% 0.4 % (0-1); Eosinophil# 0.06 X10^3/uL; Eosinophils% 0.8 % (0-5); Hematocrit 46.5 % (40-54); Hemoglobin 15.7 g/dL (13.0-16.5); Lymphocyte % 28.9 % (19-41); Mean Corp Hgb Conc 33.8 g/dL (32-36); Mean Corpuscular Hgb 34.4 pg (27.0-32.0); Mean Corpuscular Volume 101.8 fL (80-94); Mean Platelet Vol. 10.6 fl (6.2-12.0); Monocyte# 0.54 X10^3/uL; Monocyte% 7.1 % (0-10); NRBC Flagged by Analyzer 0 % (0-5); Neutrophil # 4.76 X10^3/uL (2.7-7.7); Neutrophil % 62.5 % (47-70); Platelet Count 114 K/mm3 (150-450); RBC Distribution Width CV 12.7 % (11.6-14.6); RBC Distribution Width SD 47.7 fl (35.1-43.9); Red Blood Count 4.57 M/mm3 (4.6-6.2); White Blood Count 7.6 K/mm3 (4.4-11.0)
[2024-03-08] MEDS: Budesonide Respules 0.5 MG/2 ML AMPUL.NEB. INHALATION ×2 (07:20→19:20)
[2024-03-08] MEDS: Ipratropium/Albuterol Sulfate 3 ML AMPUL.NEB INHALATION ×3 (07:20→19:20)
[2024-03-08 07:44] LABS: ALB/GLOB Ratio 1.2 RATIO (0.9-2.4); AST(SGOT) 49 U/L (15-37); Alanine Aminotransfer ALT/SGPT 75 U/L (16-61); Albumin, Serum 3.2 g/dL (3.2-5.0); Alkaline Phosphatase 95 U/L (45-117); Anion Gap 7 (5-15); BUN 20 mg/dL (7-18); BUN/Creat Ratio 26.2 RATIO (10-20); Calcium,Total 8.3 mg/dL (8.5-10.1); Chloride 105 mmol/L (98-107); Creatinine, Serum 0.76 mg/dL (0.70-1.30); EST Glomerular Filtration Rate 112 mL/min (>60); Est Glom Filt Rate - Afr Amer 135 mL/min (>60); Globulin 2.6 g/dL (2.2-4.2); Glucose 94 mg/dL (74-106); Protein, Total 5.8 g/dL (6.4-8.2); Sodium Level 141 mmol/L (136-145)
[2024-03-08] MEDS: oxyCODONE 5 MG Tablet PO ×4 (08:11→21:52)
[2024-03-08] MEDS: Pantoprazole Sodium 40 MG Tablet PO (08:12)
--- NOTE | 2024-03-08 09:07 | NURSING ---
vancomycin 0900 dose is not on unit for pt administration at this time
--- NOTE | 2024-03-08 09:20 | PN.HOSP_ITS ---
Reason for Visit Reason for Visit: Diagnoses Type 2 diabetes mellitus with diabetic polyneuropathy (03/06/24) Morbid (severe) obesity due to excess calories (03/06/24) Essential (primary) hypertension (03/06/24) Unspecified synovitis and tenosynovitis, unspecified hand (03/06/24) prison (current) use of insulin (03/06/24) Subjective Subjective Patient continues to have pain in the right hand, otherwise denies shortness of breath or other new or acute complaints Objective Data Objective Data Vital Signs: Vital Signs Temp Pulse Resp BP Pulse Ox O2 Del Method O2 Flow Rate 97.8 F 60 18 139/86 H 94 Room Air 2 03/08/24 08:49 03/08/24 08:54 03/08/24 08:54 03/08/24 08:49 03/08/24 08:54 03/08/24 08:54 03/08/24 07:21 Oxygen Flow Rate (L/min) 2 Oxygen Delivery Method Room Air Weight: 114.804 kg Body Mass Index (BMI) 37.3 Intake & Output: Intake and Output for Last 24 Hours 03/06/24 03/07/24 03/08/24 23:59 23:59 23:59 Intake Total 112 / 112 2195 / 2195 754 / 754 Output Total 0 / 0 Balance 112 / 112 2195 / 2195 754 / 754 Lab / Micro Data 03/08/24 06:06 03/08/24 06:06 Labs: Laboratory Results - last 24 hr 03/07/24 06:29: Sodium 137, Potassium 4.4, Chloride 106, Carbon Dioxide 24.0, Anion Gap 7, BUN 16, Creatinine 0.91, Estim Creat Clear Calc 111.91, Est GFR (MDRD) Af Amer 110, Est GFR (MDRD) Non-Af 91, BUN/Creatinine Ratio 17.6, Glucose 110 H, Hemoglobin A1c 7.8 H, Calcium 8.9 03/07/24 11:12: POC Glucose 92 03/07/24 15:59: POC Glucose 127 H 03/07/24 23:28: POC Glucose 109 H 03/08/24 04:58: POC Glucose 94 03/08/24 06:06: WBC 7.6, RBC 4.57 L, Hgb 15.7, Hct 46.5, MCV 101.8 H, MCH 34.4 H , MCHC 33.8, RDW Std Deviation 47.7 H, RDW Coeff of Autumn 12.7, Plt Count 114 L, MPV 10.6, Immature Gran % (Auto) 0.300, Neut % (Auto) 62.5, Lymph % (Auto) 28.9, [place] % (Auto) 7.1, Eos % (Auto) 0.8, Baso % (Auto) 0.4, Absolute Neuts (auto) 4.8, Absolute Lymphs (auto) 2.20, Nucleated RBC % 0, Sodium 141, Potassium 4.0, Chloride 105, Carbon Dioxide 28.0, Anion Gap 7, BUN 20 H, Creatinine 0.76, Estim Creat Clear Calc 134.00, Est GFR (MDRD) Af Amer 135, Est GFR (MDRD) Non-Af 112, BUN/Creatinine Ratio 26.2 H, Glucose 94, Calcium 8.3 L, Total Bilirubin 0.80, A ST 49 H, ALT 75 H, Alkaline Phosphatase 95, Total Protein 5.8 L, Albumin 3.2, Globulin 2.6, Albumin/Globulin Ratio 1.2, TSH 1.900 Micro: Microbiology 03/06/24 21:00 Wound Drainage - Aerobic & Anaerobic Swabs Gram Stain - Final 03/06/24 21:00 Wound Drainage - Aerobic & Anaerobic Swabs Wound Culture - Final Staphylococcus aureus 03/06/24 21:00 Tissue - Hand Gram Stain - Final Physical Exam Narrative General: Alert, oriented, no apparent distress HEENT: Atraumatic, normocephalic Eyes: Anicteric, normal conjunctiva, extraocular movements grossly intact Neck: Supple Respiratory: Diminished bilaterally, normal respiratory effort Cardiovascular: Regular rate GI: Soft, nontender, nondistended Extremities: No significant pitting edema Musculoskeletal: Moving all extremities Neuro: No overt focal neurological deficits Skin: Presently right arm elevated Psych: Cooperative Assessment & Plan Assessment/Plan (1) Flexor tenosynovitis of finger: PLAN: Plan # Flexor tenosynovitis of right middle finger secondary to Staph aureus -Patient went to the OR 03/06 with washout, prelim IntraOp cultures growing staph, waiting further sensitivities -Will likely need ID consult -Discussed with Dr. Edwards -Patient n.p.o. at midnight in the event he needs further intervention 03/08 -Continue broad-spectrum antibiotics at this time -03/08: Discussed with plastic surgeon yesterday, awaiting further determination on possible additional surgical intervention. ID also consulted, patient remains on IV antibiotics. Continue to elevate limb #COPD -Continue home inhalers -Patient noted to be 86% on room air but saturating well on 2 L not been resumed on inhalers yet, suspect this is the culprit will monitor closely, denied any respiratory symptoms -03/08: Now 94% on room air, respiratory status significantly improved after resumption of inhalers #Type 2 diabetes mellitus -Glucose checks and sliding scale insulin -03/08: Glucose 94 this a.m., patient presently n.p.o., may need further adjustment once patient persistently taking n.p.o., continue sliding scale insulin #CANDELARIA -Resume home NIPPV -03/08: Patient did use NIPPV last night and did well with this Chronic medical problems: # History of CVA/CAD s/o stenting -Continue aspirin, statin, Plavix #Tobacco use -Advise cessation -Nicotine replacement available if desired #GERD -Continue PPI #Hypothyroidism -Continue Synthroid # Depression -Continue Cymbalta -Continue mirtazapine #DVT ppx: SCDs Angeles Brewer MD Time spent in the patient's overall evaluation,decision-making process, review of diagnostic data, adjustment of management, discussion with other providers, nursing nursing and ancillary staff involved in patient's care documentation, 35 minutes Charges/Coding Visit Charges Inpatient E&M: 61571 Subs Hosp L2
[2024-03-08 09:26] LABS: Vancomycin, Trough Level 17.7 ug/mL (5.0-15.0)
--- NOTE | 2024-03-08 09:37 | PHA.PHARE_ITS ---
Consult Antibiotic Management Pharmacy has been consulted to manage selected antibiotic: Vancomycin Type of Intervention Type of Consult: Follow-up Suspected Infection Suspected Infection: Skin/Soft tissue Labs Labs: Sodium 141 mmol/L (136-145) 03/08/24 06:06 Potassium 4.0 mmol/L (3.5-5.1) 03/08/24 06:06 Chloride 105 mmol/L (98-107) 03/08/24 06:06 Carbon Dioxide 28.0 mmol/L (21.0-32.0) 03/08/24 06:06 Anion Gap 7 (5-15) 03/08/24 06:06 BUN 20 mg/dL (7-18) H 03/08/24 06:06 Creatinine 0.76 mg/dL (0.70-1.30) 03/08/24 06:06 Est GFR (MDRD) Af Amer 135 mL/min (>60) 03/08/24 06:06 Est GFR (MDRD) Non-Af 112 mL/min (>60) 03/08/24 06:06 BUN/Creatinine Ratio 26.2 RATIO (10-20) H 03/08/24 06:06 Glucose 94 mg/dL (74-106) 03/08/24 06:06 Vancomycin Trough 17.7 ug/mL (5.0-15.0) H 03/08/24 08:20 Microbiology Microbiology: Microbiology 03/06/24 21:00 Wound Drainage - Aerobic & Anaerobic Swabs Gram Stain - Final 03/06/24 21:00 Wound Drainage - Aerobic & Anaerobic Swabs Wound Culture - Final Staphylococcus aureus 03/06/24 21:00 Tissue - Hand Gram Stain - Final Pharmacy Plan for Drug Dosing Pharmacy Plan for Drug Dosing: VANCOMYCIN LEVEL RECEIVED Current Vancomycin Dose: 1500mg Q8 Number of Doses Received: 3 Vancomycin Level: 17.7 mg/dL Hours Since Last Dose: 7.5 Renal Function: SCr 0.76 mg/dL, CrCl 134 mL/min Renal Function Trend: improved Lab/Micro: prelim MSSA in wound cx Vancomycin Plan/Comments: 7.5 hour trough is therapeutic at 17.7 mg/dL (goal 15- 20). Will continue current dosing at this time and get a repeat trough in 2 days. Pending Level: 03/10/24 @ 0830 Pharmacy Service will continue to monitor and adjust dosing as required.
--- NOTE | 2024-03-08 09:41 | NURSING ---
vancomycin not on unit for 0900 administration
--- NOTE | 2024-03-08 10:26 | PCM.CONS.GEN ---
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 Edwards for I&D of R middle finger. He is L handed. Surg cx with MSSA. Will narrow vanc/unasyn to cefazolin. Will follow, thank you HPI Consult Data Date of Consult: 03/08/24 HPI Narrative Reason for Consultation: finger infection HPI Narrative: ONELIA REED, is a 58 M who presented 03/06 with about 2 weeks progressive R middle finger pain, swelling, redness. No known inciting events, but did have recent cut on palm of R hand. No fever, no drainage. Was started on bactrim 03/04 by PCP without improvement. Admitted here on vanc/unasyn, taken to OR 03/06/[address] Edwards for I&D. Feeling better, hand wrapped. Full ROS performed and neg except as noted above. [facility] Medical History Wears glasses No natural teeth Diabetes Thyroid disease High cholesterol Blackout History of GI bleed Smoker BiPAP (biphasic positive airway pressure) dependence Sleep apnea Shortness of breath on exertion Chronic cough History of edema Leg cramps History of stress test Cardiology follow-up encounter Elevated LFTs Back pain Dorsalgia of thoracolumbar region Patellofemoral arthritis of right knee Bilateral knee pain Situational syncope Chest pain, unspecified Type 2 diabetes mellitus Essential hypertension Pneumonia due to other streptococci Atherosclerosis of coronary artery of [place] heart without angina pectoris Right bundle-branch block Gastroesophageal reflux disease Hypertriglyceridemia Obstructive sleep apnea Body mass index (BMI) 35 or more Tobacco abuse COPD (chronic obstructive pulmonary disease) MASON (dyspnea on exertion) Morbid obesity due to excess calories Localized edema Long-term use of high-risk medication Hyperlipidemia Difficulty swallowing Stage 2 moderate COPD by GOLD classification Sinus drainage Home Medications ?Medication ?Instructions ?Recorded ?Last Taken ?Type albuterol sulfate 90 mcg/actuation 6.7 g IH PRN PRN Wheezing 12/06/14 Unknown History aerosol inhaler ergocalciferol (vitamin D2) 1,250 50,000 unit PO Q7D 12/06/14 Unknown History mcg (50,000 unit) capsule fluticasone propionate 50 1 spray NASAL DAILY 05/05/16 Unknown History mcg/actuation nasal spray,suspension aspirin 81 mg tablet,delayed 81 mg PO DAILY 08/11/19 Unknown History release duloxetine 60 mg capsule,delayed 60 mg PO DAILY 08/11/19 Unknown History release levothyroxine 50 mcg tablet 75 mcg PO DAILY 08/11/19 Unknown History losartan 50 mg tablet 25 mg PO QDAY 08/11/19 Unknown History mirtazapine 15 mg tablet 45 mg PO QHS 08/11/19 Unknown History multivitamin 1 cap PO DAILY 08/11/19 Unknown History nitroglycerin 0.4 mg sublingual 0.4 mg sublingual ONCE PRN chest 08/11/19 Unknown History tablet (Nitrostat) pain budesonide-formoterol HFA 160 2 puff inhalation BID #10.2 grams 12/05/19 Unknown Rx mcg-4.5 mcg/actuation aerosol inhaler clopidogrel 75 mg tablet 75 mg PO QDAY #90 tabs 12/29/19 Unknown Rx furosemide 40 mg tablet (Lasix) 60 mg PO DAILY 11/15/20 Unknown History metformin 1,000 mg tablet 1,000 mg PO BID 11/15/20 Unknown History isosorbide mononitrate 60 mg 30 mg (1/2 x 60 mg) PO BID #90 tabs 12/03/21 Unknown Rx tablet,extended release 24 hr gabapentin 400 mg capsule 800 mg PO TID 09/18/22 Unknown History omeprazole 40 mg capsule,delayed 40 mg PO DAILY 1 month #30 caps 06/05/23 Unknown Rx release rosuvastatin 20 mg tablet 20 mg PO QHS 1 month #30 tabs 06/05/23 Unknown Rx icosapent ethyl 1 gram capsule 2 g PO BID 06/30/23 Unknown History empagliflozin 25 mg tablet 25 mg PO DAILY #30 tabs 11/24/23 Unknown Rx (Jardiance) fluticasone fur. 100 mcg-umeclid 1 ea inhalation DAILY copd 03/07/24 Unknown History 62.5 mcg-vilant 25 mcg inhalat.powder (Trelegy Ellipta) gabapentin 800 mg tablet 800 mg PO TID pain 03/07/24 Unknown History Allergy/AdvReac Type Severity Reaction Status Date / Time No Known Allergies Allergy Verified 03/06/24 15:05 Family History Father CVA (cerebral vascular accident) Brother CAD (coronary artery disease) Diabetes Mother COPD (chronic obstructive pulmonary disease) Sarcoidosis Surgical History S/P laparoscopic cholecystectomy H/O umbilical hernia repair History of coronary artery stent placement (~03/25/16) History of carpal tunnel surgery of right wrist History of left heart catheterization Social History household members: spouse current occupational status: disabled Smoking Status: Current every day smoker tobacco type: cigarettes Tobacco: How many years used: 30 second hand exposure: Yes alcohol intake: never substance use type: does not use caffeine: Yes Type: coffee Number of servings: 2 what type of physical activity do you participate in: none Physical Exam Const alert, oriented x3 and no apparent distress General Appearance: cooperative HEENT normocephalic and head/scalp atraumatic Eyes PERRL and EOMs intact bilaterally Neck supple and No nodes Resp normal air movement and clear to auscultation bilaterally Cardio regular rate and regular rhythm GI soft to palpation, non-tender and non-distended Skin Skin Narrative: R hand wrapped Neuro CN's II-XII intact bilaterally Lab / Micro Data Attestation: I reviewed the patient's lab results. 03/08/24 06:06 03/08/24 06:06 Labs: Laboratory Results - last 24 hr 03/07/24 06:29: Sodium 137, Potassium 4.4, Chloride 106, Carbon Dioxide 24.0, Anion Gap 7, BUN 16, Creatinine 0.91, Estim Creat Clear Calc 111.91, Est GFR (MDRD) Af Amer 110, Est GFR (MDRD) Non-Af 91, BUN/Creatinine Ratio 17.6, Glucose 110 H, Calcium 8.9 03/07/24 11:12: POC Glucose 92 03/07/24 15:59: POC Glucose 127 H 03/07/24 23:28: POC Glucose 109 H 03/08/24 04:58: POC Glucose 94 03/08/24 06:06: WBC 7.6, RBC 4.57 L, Hgb 15.7, Hct 46.5, MCV 101.8 H, MCH 34.4 H, MCHC 33.8, RDW Std Deviation 47.7 H, RDW Coeff of Autumn 12.7, Plt Count 114 L, MPV 10.6, Immature Gran % (Auto) 0.300, Neut % (Auto) 62.5, Lymph % (Auto) 28.9, [place] % (Auto) 7.1, Eos % (Auto) 0.8, Baso % (Auto) 0.4, Absolute Neuts (auto) 4.8, Absolute Lymphs (auto) 2.20, Nucleated RBC % 0, Sodium 141, Potassium 4.0, Chloride 105, Carbon Dioxide 28.0, Anion Gap 7, BUN 20 H, Creatinine 0.76, Estim Creat Clear Calc 134.00, Est GFR (MDRD) Af Amer 135, Est GFR (MDRD) Non-Af 112, BUN/Creatinine Ratio 26.2 H, Glucose 94, Calcium 8.3 L, Total Bilirubin 0.80, AST 49 H, ALT 75 H, Alkaline Phosphatase 95, Total Protein 5.8 L, Albumin 3.2, Globulin 2.6, Albumin/Globulin Ratio 1.2, TSH 1.900 03/08/24 08:20: Vancomycin Trough 17.7 H Micro: Microbiology 03/06/24 21:00 Wound Drainage - Aerobic & Anaerobic Swabs Gram Stain - Final 03/06/24 21:00 Wound Drainage - Aerobic & Anaerobic Swabs Wound Culture - Final Staphylococcus aureus 03/06/24 21:00 Tissue - Hand Gram Stain - Final
--- NOTE | 2024-03-08 10:34 | PN.SURG_ITS ---
Subjective Subjective Patient sitting on the edge of bed with right hand elevated. He states he is having increased pain with soaks and dressing changes. Denies numbness. Objective Data Objective Data Vital Signs: Vital Signs Temp Pulse Resp BP Pulse Ox O2 Del Method O2 Flow Rate 97.8 F 60 18 139/86 H 94 Room Air 2 03/08/24 08:49 03/08/24 08:54 03/08/24 08:54 03/08/24 08:49 03/08/24 08:54 03/08/24 08:54 03/08/24 07:21 Oxygen Flow Rate (L/min) 2 Oxygen Delivery Method Room Air Weight: 253 lb 1.6 oz Body Mass Index (BMI) 37.3 Intake & Output: Intake and Output for Last 24 Hours 03/06/24 03/07/24 03/08/24 23:59 23:59 23:59 Intake Total 112 / 112 2195 / 2195 754 / 754 Output Total 0 / 0 Balance 112 / 112 2195 / 2195 754 / 754 Lab / Micro Data Attestation: I reviewed the patient's lab results. 03/08/24 06:06 03/08/24 06:06 Labs: Laboratory Results - last 24 hr 03/07/24 06:29: Sodium 137, Potassium 4.4, Chloride 106, Carbon Dioxide 24.0, Anion Gap 7, BUN 16, Creatinine 0.91, Estim Creat Clear Calc 111.91, Est GFR (MDRD) Af Amer 110, Est GFR (MDRD) Non-Af 91, BUN/Creatinine Ratio 17.6, Glucose 110 H, Calcium 8.9 03/07/24 11:12: POC Glucose 92 03/07/24 15:59: POC Glucose 127 H 03/07/24 23:28: POC Glucose 109 H 03/08/24 04:58: POC Glucose 94 03/08/24 06:06: WBC 7.6, RBC 4.57 L, Hgb 15.7, Hct 46.5, MCV 101.8 H, MCH 34.4 H , MCHC 33.8, RDW Std Deviation 47.7 H, RDW Coeff of Autumn 12.7, Plt Count 114 L, MPV 10.6, Immature Gran % (Auto) 0.300, Neut % (Auto) 62.5, Lymph % (Auto) 28.9, [place] % (Auto) 7.1, Eos % (Auto) 0.8, Baso % (Auto) 0.4, Absolute Neuts (auto) 4.8, Absolute Lymphs (auto) 2.20, Nucleated RBC % 0, Sodium 141, Potassium 4.0, Chloride 105, Carbon Dioxide 28.0, Anion Gap 7, BUN 20 H, Creatinine 0.76, Estim Creat Clear Calc 134.00, Est GFR (MDRD) Af Amer 135, Est GFR (MDRD) Non-Af 112, BUN/Creatinine Ratio 26.2 H, Glucose 94, Calcium 8.3 L, Total Bilirubin 0.80, A ST 49 H, ALT 75 H, Alkaline Phosphatase 95, Total Protein 5.8 L, Albumin 3.2, Globulin 2.6, Albumin/Globulin Ratio 1.2, TSH 1.900 03/08/24 08:20: Vancomycin Trough 17.7 H Micro: Microbiology 03/06/24 21:00 Wound Drainage - Aerobic & Anaerobic Swabs Gram Stain - Final 03/06/24 21:00 Wound Drainage - Aerobic & Anaerobic Swabs Wound Culture - Final Staphylococcus aureus 03/06/24 21:00 Tissue - Hand Gram Stain - Final Physical Exam Narrative Right hand is swollen. He is having difficulty moving fingers due to swelling but is able to move the MP, PIP, and DIP slightly in the right long finger. Capillary refill <2 seconds all fingers right hand. Sensation intact right long finger. No purulence from incisions. Distal long finger incision near DIP joint is no longer able to be packed. He is tolerating the soaks well. Const alert and oriented x3 General Appearance: cooperative HEENT normocephalic Head and Scalp: atraumatic Eyes General Eye: normal appearance of both eyes Resp normal respiratory effort Effort and Inspection: able to speak in complete sentences Cardio regular rate Psych thought process normal and cooperative Assessment & Plan Assessment/Plan (1) Flexor tenosynovitis of finger: (2) Type II diabetes mellitus: QUALIFIERS: Diabetes mellitus skilled nursing insulin use: with keno terminal operator use Diabetes mellitus complication status: with neurologic complications Diabetes mellitus complication detail: with polyneuropathy Qualified Code(s): E 11.42 - Type 2 diabetes mellitus with diabetic polyneuropathy; 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 Blood sugars well controlled. Continue soaks three times per day and packing well afterwards. Keep right hand elevated as much as possible. 03/06/24 operative cultures MSSA, anaerobic cultures pending. He is on Vancomycin and Unasyn. ID consulted. Continue Wagner BID to assist with wound healing. Charges/Coding Procedures Integumentary [id number]: [id number] Global Visit
--- NOTE | 2024-03-08 10:49 | NURSING ---
pt currently sleeping, surgery has been cancelled and pt is allowed to eat per Neda DIANA w/ r Genevieve' office
[2024-03-08] MEDS: Aspirin E.C. 81 MG Tablet PO ×2 (11:28)
[2024-03-08] MEDS: Juven (unflavored) Packet 1 PACKET PO (11:29)
[2024-03-08] MEDS: DULoxetine Hcl 60 MG Capsule PO (11:30)
[2024-03-08] MEDS: Furosemide 20 MG Tablet 60 MG PO (11:30)
[2024-03-08] MEDS: Acetaminophen 500 MG Tablet 1000 MG PO ×2 (11:47→21:48)
[2024-03-08 12:07] LABS: Bedside Glucose 109 mg/dL (74-106)
[2024-03-08] MEDS: Cefazolin 2 GM in 0.9% Normal Saline (100mL Bag) 100 ML IV ×2 (12:51→21:47)
[2024-03-08] MEDS: Senna/Docusate Sodium 1 Tablet 2 TABLET PO (17:32)
[2024-03-08] MEDS: Mirtazapine 15 MG Tablet 45 MG PO (21:48)
[2024-03-08] MEDS: Atorvastatin Calcium 40 MG Tablet PO (21:48)
[2024-03-08 23:02] LABS: Bedside Glucose 113 mg/dL (74-106)
[2024-03-09] VITALS (7 sets, daily range): BP systolic 120–156; BP diastolic 70–88; PULSE 56–66; RESP 14–18; TEMP 36.6–37; O2SAT 94–100
[2024-03-09] MEDS: Levothyroxine 75 MCG Tablet PO (06:48)
[2024-03-09] MEDS: Gabapentin 800 MG Tablet PO ×3 (06:48→21:44)
[2024-03-09] MEDS: Cefazolin 2 GM in 0.9% Normal Saline (100mL Bag) 100 ML IV ×3 (06:48→21:44)
[2024-03-09] MEDS: Acetaminophen 500 MG Tablet 1000 MG PO ×3 (06:48→21:45)
--- NOTE | 2024-03-09 07:16 | PN.SURG_ITS ---
Subjective Subjective Doing a little better today. Reports less pain. Pain is mostly over the volar incisions on the long finger, localized to the soft tissues. Objective Data Objective Data Vital Signs: Vital Signs Temp Pulse Resp BP Pulse Ox O2 Del Method O2 Flow Rate 97.8 F 56 L 16 120/74 94 Bi-pap 4 03/09/24 03:50 03/09/24 03:50 03/09/24 03:50 03/09/24 03:50 03/09/24 03:50 03/09/24 04:50 03/09/24 04:50 Oxygen Flow Rate (L/min) 4 Oxygen Delivery Method Bi-pap Weight: 253 lb 1.6 oz Body Mass Index (BMI) 37.3 Intake & Output: Intake and Output for Last 24 Hours 03/07/24 03/08/24 03/09/24 23:59 23:59 23:59 Intake Total 2195 / 2195 1890 / 1890 100 / 100 Output Total 0 / 0 Balance 2195 / 2195 1890 / 1890 100 / 100 Lab / Micro Data 03/08/24 06:06 03/08/24 06:06 Labs: Laboratory Results - last 24 hr 03/08/24 06:06: Sodium 141, Potassium 4.0, Chloride 105, Carbon Dioxide 28.0, Anion Gap 7, BUN 20 H, Creatinine 0.76, Estim Creat Clear Calc 134.00, Est GFR (MDRD) Af Amer 135, Est GFR (MDRD) Non-Af 112, BUN/Creatinine Ratio 26.2 H, Glucose 94, Calcium 8.3 L, Total Bilirubin 0.80, AST 49 H, ALT 75 H, Alkaline Phosphatase 95, Total Protein 5.8 L, Albumin 3.2, Globulin 2.6, Albumin/Globulin Ratio 1.2, TSH 1.900 03/08/24 08:20: Vancomycin Trough 17.7 H 03/08/24 11:46: POC Glucose 109 H 03/08/24 21:46: POC Glucose 113 H Micro: Microbiology 03/06/24 21:00 Tissue - Hand Gram Stain - Final 03/06/24 21:00 Tissue - Hand Wound Culture - Preliminary Staphylococcus aureus 03/06/24 21:00 Wound Drainage - Aerobic & Anaerobic Swabs Gram Stain - Final 03/06/24 21:00 Wound Drainage - Aerobic & Anaerobic Swabs Wound Culture - Final Staphylococcus aureus Physical Exam Narrative RUE Seen and examined. No purulence from incisions. Swelling improved. No pain over the palm or over the carpal tunnel. No signs of ascending infection (no streaking erythema/lymphadenopathy). No pain with axial loading of any of the RLF joints. Motor: Able to bend MP, PIP, and DIP joints of the right long finger, but limited 2/2 swelling. Sensation: Intact to light touch on the radial and ulnar borders of the right long finger. Vascular: <2 second capillary refill on the right long finger. Const General Appearance: cooperative Eyes EOMs intact bilaterally Neck full ROM Resp normal respiratory effort Cardio regular rate Extremity Extremity Narrative: SCDs on and activated Assessment & Plan Assessment/Plan (1) Flexor tenosynovitis of finger: PLAN: OK for diet today (no surgery) Continue TID Dial soap soaks and packing MSSA on cultures, appreciate ID recommendations for Cefazolin [facility] will continue to follow as organizational consultant Charges/Coding Procedures Integumentary [id number]: [id number] Global Visit
[2024-03-09 07:17] LABS: ALB/GLOB Ratio 1.4 RATIO (0.9-2.4); AST(SGOT) 49 U/L (15-37); Alanine Aminotransfer ALT/SGPT 71 U/L (16-61); Albumin, Serum 3.4 g/dL (3.2-5.0); Alkaline Phosphatase 96 U/L (45-117); Anion Gap 6 (5-15); BUN 17 mg/dL (7-18); BUN/Creat Ratio 23.5 RATIO (10-20); Calcium,Total 8.5 mg/dL (8.5-10.1); Chloride 101 mmol/L (98-107); Creatinine, Serum 0.72 mg/dL (0.70-1.30); EST Glomerular Filtration Rate 119 mL/min (>60); Est Glom Filt Rate - Afr Amer 144 mL/min (>60); Estimated Creatinine Clearance 141.44 ml/min; Globulin 2.5 g/dL (2.2-4.2); Glucose 110 mg/dL (74-106); Potassium 3.5 mmol/L (3.5-5.1); Protein, Total 5.9 g/dL (6.4-8.2); Sodium Level 136 mmol/L (136-145)
[2024-03-09 07:18] LABS: Absolute Lymphocyte Count 2.07 X10^3/uL (0.83-4.51); Absolute Neutrophil Count 2.7 X10^3/uL (2.0-7.7); Basophil# 0.02 X10^3/uL; Basophil% 0.4 % (0-1); Eosinophil# 0.08 X10^3/uL; Eosinophils% 1.5 % (0-5); Hematocrit 47.3 % (40-54); Hemoglobin 16.1 g/dL (13.0-16.5); Lymphocyte # 2.07 X10^3/ul (0.83-4.51); Lymphocyte % 39.2 % (19-41); Mean Corpuscular Hgb 34.2 pg (27.0-32.0); Mean Corpuscular Volume 100.4 fL (80-94); Mean Platelet Vol. 10.8 fl (6.2-12.0); Monocyte# 0.43 X10^3/uL; Monocyte% 8.1 % (0-10); NRBC Flagged by Analyzer 0 % (0-5); Neutrophil # 2.67 X10^3/uL (2.7-7.7); Neutrophil % 50.6 % (47-70); Platelet Count 115 K/mm3 (150-450); RBC Distribution Width CV 12.4 % (11.6-14.6); Red Blood Count 4.71 M/mm3 (4.6-6.2); White Blood Count 5.3 K/mm3 (4.4-11.0)
[2024-03-09] MEDS: Ipratropium/Albuterol Sulfate 3 ML AMPUL.NEB INHALATION ×3 (07:27→19:36)
[2024-03-09] MEDS: Budesonide Respules 0.5 MG/2 ML AMPUL.NEB. INHALATION ×2 (07:27→19:36)
[2024-03-09 07:31] LABS: Bedside Glucose 122 mg/dL (74-106)
[2024-03-09] MEDS: Juven (unflavored) Packet 1 PACKET PO ×2 (08:51→17:57)
[2024-03-09] MEDS: DULoxetine Hcl 60 MG Capsule PO (08:52)
[2024-03-09] MEDS: Furosemide 20 MG Tablet 60 MG PO (08:52)
[2024-03-09] MEDS: Pantoprazole Sodium 40 MG Tablet PO (08:52)
[2024-03-09] MEDS: Clopidogrel Bisulfate 75 MG Tablet PO (08:53)
[2024-03-09] MEDS: oxyCODONE 5 MG Tablet PO ×3 (09:07→22:57)
[2024-03-09] MEDS: Insulin Lispro 100 UNIT/ML INSULN.PEN SC ×2 (12:12→18:05)
[2024-03-09 12:32] LABS: Bedside Glucose 189 mg/dL (74-106)
--- NOTE | 2024-03-09 13:51 | PCM.PN.ID ---
Physical Exam Narrative Hand improving, no fever, no n/v/d Const alert and no apparent distress General Appearance: cooperative Resp normal air movement and clear to auscultation bilaterally Cardio regular rate and regular rhythm GI soft to palpation, non-tender and non-distended Extremity Extremity Narrative: hand wrapped ID ID: Route of nutrition/ use of supplements: [] Nutritional Intake: [] IV Site: [] Barr Catheter: [] Assessment & Plan Assessment/Plan (1) Type II diabetes mellitus: QUALIFIERS: Diabetes mellitus senior living insulin use: with senior living use Diabetes mellitus complication status: with neurologic complications Diabetes mellitus complication detail: with polyneuropathy Qualified Code(s): E11.42 - Type 2 diabetes mellitus with diabetic polyneuropathy; Z79.4 - skilled nursing (current) use of insulin (2) Flexor tenosynovitis of finger: PLAN: Taken to OR 03/06/[address] Edwards for I&D of R middle finger. He is L handed. Surg cx with MSSA. Will cont cefazolin. Plan on po abx at discharge. Will follow
[2024-03-09] MEDS: 0.9% Saline Lock 10 ML Syringe IV (14:26)
[2024-03-09] MEDS: Morphine 4 MG/ML Syringe IV ×3 (14:26→21:23)
--- NOTE | 2024-03-09 16:11 | RAD_ITS ---
STUDY: X-RAY - RIGHT KNEE REASON FOR EXAM: Male, 58 years old. R knee pain TECHNIQUE: 2 view(s) of the knee. COMPARISON: None. FINDINGS: Normal visualized distal femur. Normal visualized proximal tibia and fibula. Normal proximal tibiofibular articulation. There is no demonstrated fracture. Normal medial femorotibial compartment. Normal lateral femorotibial compartment. There is moderate degenerative arthrosis of the patellofemoral articulation. There is a moderate volume joint effusion. Probable 1 cm calcified loose body in the suprapatellar recess. The soft tissue structures are unremarkable. RAD/Knee 1 or 2 Views IMPRESSION: No acute fracture or dislocation. Degenerative changes. Probable effusion. Electronically Signed: Daniel Loera MD at 23:08 EDT ,
[2024-03-09] MEDS: Arthritis Pain Compound 60 CLICK TUBE TOPICAL (17:57)
--- NOTE | 2024-03-09 17:57 | PN.HOSP_ITS ---
Reason for Visit Reason for Visit: Diagnoses Type 2 diabetes mellitus with diabetic polyneuropathy (03/06/24) Morbid (severe) obesity due to excess calories (03/06/24) Essential (primary) hypertension (03/06/24) Unspecified synovitis and tenosynovitis, unspecified hand (03/06/24) [facility] ([facility] use of insulin (03/06/24) Subjective Subjective Patient reports hand pain slowly improving, denies any shortness of breath or cough. Reports he has had a little bit of right lateral knee pain over the past couple days but does not remember any trauma or inciting factor Objective Data Objective Data Vital Signs: Vital Signs Temp Pulse Resp BP Pulse Ox O2 Del Method O2 Flow Rate 98.6 F 56 L 18 130/70 H 94 Room Air 4 03/09/24 08:48 03/09/24 13:15 03/09/24 13:15 03/09/24 08:48 03/09/24 08:48 03/09/24 09:00 03/09/24 04:50 Oxygen Flow Rate (L/min) 4 Oxygen Delivery Method Room Air Weight: 114.804 kg Body Mass Index (BMI) 37.3 Intake & Output: Intake and Output for Last 24 Hours 03/07/24 03/08/24 03/09/24 23:59 23:59 23:59 Intake Total 2195 / 2195 1890 / 1890 680 / 680 Output Total 0 / 0 Balance 2195 / 2195 1890 / 1890 680 / 680 Lab / Micro Data 03/09/24 06:18 03/09/24 06:18 Labs: Laboratory Results - last 24 hr 03/08/24 21:46: POC Glucose 113 H 03/09/24 06:18: WBC 5.3, RBC 4.71, Hgb 16.1, Hct 47.3, MCV 100.4 H, MCH 34.2 H, MCHC 34.0, RDW Std Deviation 47.0 H, RDW Coeff of Autumn 12.4, Plt Count 115 L, MPV 10.8, Immature Gran % (Auto) 0.200, Neut % (Auto) 50.6, Lymph % (Auto) 39.2, [place] % (Auto) 8.1, Eos % (Auto) 1.5, Baso % (Auto) 0.4, Absolute Neuts (auto) 2.7, Absolute Lymphs (auto) 2.07, Nucleated RBC % 0, Sodium 136, Potassium 3.5, Chloride 101, Carbon Dioxide 29.0, Anion Gap 6, BUN 17, Creatinine 0.72, Estim Creat Clear Calc 141.44, Est GFR (MDRD) Af Amer 144, Est GFR (MDRD) Non-Af 119, BUN/Creatinine Ratio 23.5 H, Glucose 110 H, Calcium 8.5, Total Bilirubin 0.70, A ST 49 H, ALT 71 H, Alkaline Phosphatase 96, Total Protein 5.9 L, Albumin 3.4, Globulin 2.5, Albumin/Globulin Ratio 1.4 03/09/24 06:47: POC Glucose 122 H 03/09/24 12:00: POC Glucose 189 H Micro: Microbiology 03/06/24 21:00 Tissue - Hand Gram Stain - Final 03/06/24 21:00 Tissue - Hand Wound Culture - Final Staphylococcus aureus 03/06/24 21:00 Wound Drainage - Aerobic & Anaerobic Swabs Gram Stain - Final 03/06/24 21:00 Wound Drainage - Aerobic & Anaerobic Swabs Wound Culture - Final Staphylococcus aureus 03/06/24 21:00 Wound Drainage - Aerobic & Anaerobic Swabs Anaerobic Culture - Preliminary Physical Exam Narrative General: Alert, oriented, no apparent distress HEENT: Atraumatic, normocephalic Eyes: Anicteric, normal conjunctiva, extraocular movements grossly intact Neck: Supple Respiratory: Diminished bilaterally, normal respiratory effort Cardiovascular: Regular rate GI: Soft, nontender, nondistended Extremities: No significant pitting edema Musculoskeletal: Moving all extremities, no erythema, redness, warmth on left knee, patient reports he feels a little bit tender when palpating that area without point tenderness. Able to flex and extend leg Neuro: No overt focal neurological deficits Skin: Presently right arm elevated Psych: Cooperative Assessment & Plan Assessment/Plan (1) Flexor tenosynovitis of finger: PLAN: Plan # Flexor tenosynovitis of right middle finger secondary to Staph aureus -Patient went to the OR 03/06 with washout, prelim IntraOp cultures growing staph, waiting further sensitivities -Will likely need ID consult -Discussed with Dr. Edwards -Patient n.p.o. at midnight in the event he needs further intervention 03/08 -Continue broad-spectrum antibiotics at this time -03/08: Discussed with plastic surgeon yesterday, awaiting further determination on possible additional surgical intervention. ID also consulted, patient remains on IV antibiotics. Continue to elevate limb -03/09: Surgical cultures with MSSA, on cefazolin, plan will be p.o. antibiotics at discharge. No surgery today from plastic surgery standpoint, patient to continue 3 times daily Dial soap soaks and packing #COPD -Continue home inhalers -Patient noted to be 86% on room air but saturating well on 2 L not been resumed on inhalers yet, suspect this is the culprit will monitor closely, denied any respiratory symptoms -03/08: Now 94% on room air, respiratory status significantly improved after resumption of inhalers -03/09: Patient denies having any shortness of breath. Had an 88% on room air yesterday evening. Continue Lasix, continue nebs and inhaled budesonide. Incentive spirometer ordered #Type 2 diabetes mellitus -Glucose checks and sliding scale insulin -03/08: Glucose 94 this a.m., patient presently n.p.o., may need further adjustment once patient persistently taking n.p.o., continue sliding scale insulin -03/09: Glucose remains fairly well-controlled for inpatient setting. Continue sliding scale at this time and adjust as needed Chronic medical problems: #CANDELARIA -Resume home NIPPV -03/08: Patient did use NIPPV last night and did well with this # History of CVA/CAD s/o stenting -Continue aspirin, statin, Plavix #Tobacco use -Advise cessation -Nicotine replacement available if desired #GERD -Continue PPI #Hypothyroidism -Continue Synthroid # Depression -Continue Cymbalta -Continue mirtazapine #DVT ppx: Lovenox subq Angeles Brewer MD Time spent in the patient's overall evaluation,decision-making process, review of diagnostic data, adjustment of management, discussion with other providers, nursing nursing and ancillary staff involved in patient's care documentation, 35 minutes Charges/Coding Visit Charges Inpatient E&M: 97668 Subs Hosp L2
[2024-03-09 18:47] LABS: Bedside Glucose 168 mg/dL (74-106)
[2024-03-09] MEDS: Mirtazapine 15 MG Tablet 45 MG PO (21:44)
[2024-03-09] MEDS: Atorvastatin Calcium 40 MG Tablet PO (21:45)
[2024-03-09 22:52] LABS: Bedside Glucose 144 mg/dL (74-106)
[2024-03-10] VITALS (17 sets, daily range): BP systolic 122–180; BP diastolic 80–112; PULSE 55–66; RESP 16–18; TEMP 36.2–36.8; O2SAT 92–98; BMI 37.5
[2024-03-10] MEDS: Morphine 4 MG/ML Syringe IV ×4 (03:34→21:21)
[2024-03-10 06:28] LABS: Absolute Lymphocyte Count 2.27 X10^3/uL (0.83-4.51); Absolute Neutrophil Count 2.6 X10^3/uL (2.0-7.7); Basophil# 0.03 X10^3/uL; Basophil% 0.6 % (0-1); Eosinophil# 0.09 X10^3/uL; Eosinophils% 1.7 % (0-5); Hematocrit 47.7 % (40-54); Hemoglobin 16.6 g/dL (13.0-16.5); Lymphocyte # 2.27 X10^3/ul (0.83-4.51); Lymphocyte % 41.7 % (19-41); Mean Corp Hgb Conc 34.8 g/dL (32-36); Mean Corpuscular Volume 97.7 fL (80-94); Mean Platelet Vol. 10.7 fl (6.2-12.0); Monocyte# 0.46 X10^3/uL; Monocyte% 8.4 % (0-10); NRBC Flagged by Analyzer 0 % (0-5); Neutrophil # 2.59 X10^3/uL (2.7-7.7); Neutrophil % 47.4 % (47-70); Platelet Count 107 K/mm3 (150-450); RBC Distribution Width CV 12.3 % (11.6-14.6); RBC Distribution Width SD 44.5 fl (35.1-43.9); Red Blood Count 4.88 M/mm3 (4.6-6.2); White Blood Count 5.5 K/mm3 (4.4-11.0)
[2024-03-10] MEDS: Gabapentin 800 MG Tablet PO ×3 (06:44→22:30)
[2024-03-10] MEDS: Acetaminophen 500 MG Tablet 1000 MG PO ×3 (06:44→22:24)
[2024-03-10] MEDS: Levothyroxine 75 MCG Tablet PO (06:44)
[2024-03-10] MEDS: Cefazolin 2 GM in 0.9% Normal Saline (100mL Bag) 100 ML IV ×3 (06:45→22:29)
[2024-03-10] MEDS: 0.9% Normal Saline (100mL Bag) 100 ML 15 ML IV (06:54)
[2024-03-10 07:11] LABS: ALB/GLOB Ratio 1.3 RATIO (0.9-2.4); AST(SGOT) 56 U/L (15-37); Alanine Aminotransfer ALT/SGPT 71 U/L (16-61); Albumin, Serum 3.6 g/dL (3.2-5.0); Alkaline Phosphatase 95 U/L (45-117); Anion Gap 5 (5-15); BUN 18 mg/dL (7-18); BUN/Creat Ratio 23.7 RATIO (10-20); Calcium,Total 8.6 mg/dL (8.5-10.1); Chloride 102 mmol/L (98-107); Creatinine, Serum 0.76 mg/dL (0.70-1.30); EST Glomerular Filtration Rate 112 mL/min (>60); Est Glom Filt Rate - Afr Amer 136 mL/min (>60); Globulin 2.7 g/dL (2.2-4.2); Glucose 108 mg/dL (74-106); Potassium 3.6 mmol/L (3.5-5.1); Protein, Total 6.3 g/dL (6.4-8.2); Sodium Level 137 mmol/L (136-145)
[2024-03-10 07:15] LABS: Bedside Glucose 113 mg/dL (74-106)
[2024-03-10] MEDS: Budesonide Respules 0.5 MG/2 ML AMPUL.NEB. INHALATION ×2 (07:23→19:43)
[2024-03-10] MEDS: Ipratropium/Albuterol Sulfate 3 ML AMPUL.NEB INHALATION ×2 (07:23→19:43)
--- NOTE | 2024-03-10 07:24 | PCM.PN.BLA ---
Progress Note Not much improvement today. Reports feelings of tightness in the wrist (over the carpal tunnel) as well as pain in the long finger PIP joint. Reports good dressing changes but nurses unable to get packing into distal wound. Physical Exam Narrative RUE Seen and examined. Today there is a little purulence from incisions proximally (change from yesterday). 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 Some pain over the carpal tunnel. No streaking erythema/lymphadenopathy. Positive pain with axial loading of the right long finger joint. Motor: Able to bend MP, PIP, and DIP joints of the right long finger, but limited 2/2 swelling. Sensation: Intact to light touch on the radial and ulnar borders of the right long finger. Vascular: <2 second capillary refill on the right long finger. Const General Appearance: cooperative Eyes EOMs intact bilaterally Neck full ROM Resp normal respiratory effort Cardio regular rate Extremity Extremity Narrative: No swelling in the lower extremities/calves SCDs on and activated Assessment & Plan Assessment/Plan (1) Flexor tenosynovitis of finger: PLAN: Patient failing to improve. Worsening exam today. There is now some purulence from the proximal incisions and the distal counter incision is healing in. He needs urgent take back/wash out for second look. Given pain in palm over CT and pain over the right long finger PIP joint with axial loading, I discussed CT release and PIP joint exploration/arthrotomy to get source control of the infection. I have posted him for surgery this morning. NPO now. Discussed with primary team. I talked the patient extensively about the risks of surgery, including bleeding, worsening infection, damage to surrounding structures (discussed arthrotomy and possible tendon damage, discussed carpal tunnel release and possible nerve damage, discussed risks of damage to digital arteries/nerves), further wound formation, need for wound care, need for repeat operations, failure to obtain the desired result, DVT/PE, and the risks of anesthesia including . All of their questions were answered, and they agreed to proceed with surgery.
--- NOTE | 2024-03-10 08:19 | PN.HOSP_ITS ---
Reason for Visit Reason for Visit: Diagnoses Type 2 diabetes mellitus with diabetic polyneuropathy (03/06/24) Morbid (severe) obesity due to excess calories (03/06/24) Essential (primary) hypertension (03/06/24) Unspecified synovitis and tenosynovitis, unspecified hand (03/06/24) [facility] (current) use of insulin (03/06/24) Subjective Subjective significant pain post-operatively. Objective Data Objective Data Vital Signs: Vital Signs Temp Pulse Resp BP Pulse Ox O2 Del Method O2 Flow Rate 36.8 C 59 L 16 142/86 H 97 Room Air 4 03/10/24 03:16 03/10/24 07:25 03/10/24 07:25 03/10/24 03:16 03/10/24 07:25 03/10/24 07:25 03/09/24 04:50 Oxygen Flow Rate (L/min) 4 Oxygen Delivery Method Room Air Weight: 114.804 kg Body Mass Index (BMI) 37.3 Intake & Output: Intake and Output for Last 24 Hours 03/08/24 03/09/24 03/10/24 23:59 23:59 23:59 Intake Total 1890 / 1890 1210 / 1610 900 / 900 Balance 1890 / 1890 1210 / 1610 900 / 900 Lab / Micro Data 03/10/24 05:48 03/10/24 05:48 Labs: Laboratory Results - last 24 hr 03/09/24 12:00: POC Glucose 189 H 03/09/24 18:03: POC Glucose 168 H 03/09/24 21:42: POC Glucose 144 H 03/10/24 05:48: WBC 5.5, RBC 4.88, Hgb 16.6 H, Hct 47.7, MCV 97.7 H, MCH 34.0 H, MCHC 34.8, RDW Std Deviation 44.5 H, RDW Coeff of Autumn 12.3, Plt Count 107 L, MPV 10.7, Immature Gran % (Auto) 0.200, Neut % (Auto) 47.4, Lymph % (Auto) 41.7 H, [place] % (Auto) 8.4, Eos % (Auto) 1.7, Baso % (Auto) 0.6, Absolute Neuts (auto) 2.6, Absolute Lymphs (auto) 2.27, Nucleated RBC % 0, Sodium 137, Potassium 3.6, Chloride 102, Carbon Dioxide 30.0, Anion Gap 5, BUN 18, Creatinine 0.76, Estim Creat Clear Calc 134.00, Est GFR (MDRD) Af Amer 136, Est GFR (MDRD) Non-Af 112, BUN/Creatinine Ratio 23.7 H, Glucose 108 H, Calcium 8.6, Total Bilirubin 0.70, A ST 56 H, ALT 71 H, Alkaline Phosphatase 95, Total Protein 6.3 L, Albumin 3.6, Globulin 2.7, Albumin/Globulin Ratio 1.3 03/10/24 06:43: POC Glucose 113 H Micro: Microbiology 03/06/24 21:00 Tissue - Hand Gram Stain - Final 03/06/24 21:00 Tissue - Hand Wound Culture - Final Staphylococcus aureus 03/06/24 21:00 Wound Drainage - Aerobic & Anaerobic Swabs Gram Stain - Final 03/06/24 21:00 Wound Drainage - Aerobic & Anaerobic Swabs Wound Culture - Final Staphylococcus aureus 03/06/24 21:00 Wound Drainage - Aerobic & Anaerobic Swabs Anaerobic Culture - Preliminary Radiography Diagnostic Testing: Radiology Impression Knee X-Ray 03/09/24 16:11 IMPRESSION: No acute fracture or dislocation. Degenerative changes. Probable effusion. Electronically Signed: Daniel Loera MD at 23:08 EDT , Physical Exam Const alert and no apparent distress Constitutional Narrative: uncomfortable. HEENT head/scalp atraumatic and moist oral mucous membranes Extremity Extremity Narrative: right hand casted Assessment & Plan Assessment/Plan (1) Flexor tenosynovitis of finger: PLAN: Plan Flexor tenosynovitis of right middle finger secondary to Staph aureus * Patient went to the OR 03/06 with washout. Worsening condition and went back to OR on 03/10: where there was puss over the tendon and purulence in right long finger PIP. Tentative plan for return to OR on the . * Cutlures positive for MSSA * Paitent to return to OR today for washout given worsening exam. * Abx with cefazolin. ID following. Chronic conditions: * COPD: Continue home inhalers. Patient noted to be 86% on room air but saturating well on 2 L not been resumed on inhalers yet, suspect this is the culprit will monitor closely, denied any respiratory symptoms. 03/08: Now 94% on room air, respiratory status significantly improved after resumption of inhalers. 03/09: Patient denies having any shortness of breath. Had an 88% on room air yesterday evening. Continue Lasix, continue nebs and inhaled budesonide. Incentive spirometer ordered * type 2 diabetes mellitus: Glucose checks and sliding scale insulin. 03/08: Glucose 94 this a.m., patient presently n.p.o., may need further adjustment once patient persistently taking n.p.o., continue sliding scale insulin. 03/09: Glucose remains fairly well-controlled for inpatient setting. Continue sliding scale at this time and adjust as needed * CANDELARIA. Resume home NIPPV. 03/08: Patient did use NIPPV last night and did well with this * History of CVA/CAD s/o stenting-Continue aspirin, statin, Plavix * Tobacco use-Advise cessation-Nicotine replacement available if desired * GERD-Continue PPI * Hypothyroidism-Continue Synthroid * Depression-Continue Cymbalta-Continue mirtazapine VTE prophylaxis: LMWH Charges/Coding Visit Charges Inpatient E&M: 38880 Subs Hosp L2
[2024-03-10] MEDS: Arthritis Pain Compound 60 CLICK TUBE TOPICAL ×2 (08:28→22:23)
--- NOTE | 2024-03-10 10:26 | PCM.PN.ID ---
Physical Exam Narrative Purulence seen this AM by surgery. OR planned, hand is sore, no fever Const alert and no apparent distress Resp normal air movement and clear to auscultation bilaterally Cardio regular rate and regular rhythm GI soft to palpation, non-tender and non-distended Skin Skin Narrative: hand wrapped ID ID: Route of nutrition/ use of supplements: [] Nutritional Intake: [] IV Site: [] Barr Catheter: [] Assessment & Plan Assessment/Plan (1) Type II diabetes mellitus: QUALIFIERS: Diabetes mellitus remote computer terminal operator insulin use: with remote computer terminal operator use Diabetes mellitus complication status: with neurologic complications Diabetes mellitus complication detail: with polyneuropathy Qualified Code(s): E11.42 - Type 2 diabetes mellitus with diabetic polyneuropathy; Z79.4 - [facility] (current) use of insulin (2) Flexor tenosynovitis of finger: PLAN: Taken to OR 03/06/[address] Edwards for I&D of R middle finger. He is L handed. Surg cx with MSSA. Will cont cefazolin. OR again planned Will follow
[2024-03-10 10:47] LABS: Bedside Glucose 117 mg/dL (74-106)
--- NOTE | 2024-03-10 11:09 | PRE.ANES_ITS ---
ASA Classification* ASA Classification ASA Classification: 3 Assessment & Plan Anesthesia* Anesthesia Assessment Anesthesia Assessment: Discussed sedation and/or anesthesia options, risks, benefits, and alternatives with patient/parents/legal guardian/POA. Questions invited. The patient/parents/legal guardian/POA seems to understand and agrees to proceed with anesthesia plan. Reviewed the physical assessment, medical history, allergy history and patient home medications list prior to surgery/procedure/anesthetic and documented any changes. Performed airway and anesthesia risk assessments. Anesthesia Type Anesthesia Type: General (see written pre anesthesia record for full assessment) Anesthesia Focused Assessment* Temperature: 97.1 F Pulse Rate: 62 Blood Pressure: 131/83 Respiratory Rate: 16 Pulse Ox: 95 Airway Assessment Mouth opens: >3 cm Mallampati Score: III Focused Labs Anesthesia Preop lab: CBC WBC 5.5 K/mm3 (4.4-11.0) 03/10/24 05:48 RBC 4.88 M/mm3 (4.6-6.2) 03/10/24 05:48 Hgb 16.6 g/dL (13.0-16.5) H 03/10/24 05:48 Hct 47.7 % (40-54) 03/10/24 05:48 Plt Count 107 K/mm3 (150-450) L 03/10/24 05:48 CHEMISTRY Potassium 3.6 mmol/L (3.5-5.1) 03/10/24 05:48 Sodium 137 mmol/L (136-145) 03/10/24 05:48 BUN 18 mg/dL (7-18) 03/10/24 05:48 Creatinine 0.76 mg/dL (0.70-1.30) 03/10/24 05:48 Glucose 108 mg/dL (74-106) H 03/10/24 05:48 POC Glucose 117 mg/dL (74-106) H 03/10/24 10:26 TSH 1.900 uIU/mL (0.358-3.740) 03/08/24 06:06 COAG PT 14.2 SECONDS (11.7-14.9) 03/06/24 15:50 Pre-Assessment Diagnosis/Proposed Procedure Planned Operative Procedure(s): Irrigation and debridement of right hand Anesthesia History Anesthesia History - credit charge authorizer: Anesthesia History - credit charge authorizer Hx Hospitalization No 06/30/23 12:45 Any Problems With Anesthesia No 03/07/24 21:16 Cholinesterase deficiency No 03/07/24 21:16 You/Your Family Experience No 03/07/24 21:16 fever (hyperthermia) with Relationship Recent Exposure to Contagious Disease Does patient have nerve No 03/07/24 21:16 stimulator Patient instructed to have device shut off --Does patient have Pacemaker No 03/10/24 10:10 or ICD? When Was Last Pacemaker Check QUESTION #4 FULL TEXT: You/Your Family Experience fever (hyperthermia) with Anesthesia Last Oral Intake Last Oral intake: Last Oral Intake NPO since 07:00 03/10/24 10:10 Meds taken in AM with sips of No 03/10/24 10:10 water? Meds patient instructed to take am of surgery PONV PONV - credit charge authorizer: PONV - credit charge authorizer Female HX of Motion Sickness HX of N/V After Surgery Non-Smoker Duration of Surgery greater than 60 minutes Number of Risk Factors PONV Score Height & Weight Height & Weight: Anesthesia: Height & Weight Height 5 ft 8.9 in 03/10/24 10:10 Weight: 114.8 kg 03/10/24 10:10 Body Mass Index (BMI) 37.5 03/10/24 10:10 Respiratory Assessment Respiratory Assessment - credit charge authorizer: Respiratory Tract Infection Hx - credit charge authorizer Hx Respiratory Tract Infection No 03/07/24 21:16 STOP Sleep Apnea STOP Sleep Apnea - credit charge authorizer: STOP Sleep Apnea - credit charge authorizer Hx Hypertension Yes 03/10/24 09:38 Hx Sleep Apnea Yes 03/06/24 22:22 CPAP No 03/06/24 22:22 BIPAP Yes 03/06/24 22:22 Do you snore loudly (louder than talking or can be heard Do you often feel tired/ fatigued/ sleepy during daytime? Has anyone observed you stop breathing during sleep? STOP Results Positive 03/06/24 22:22 QUESTION #5 FULL TEXT : Do you snore loudly (louder than talking or can be heard through closed doors)? 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 Specify any problems Hx of Preganancy in last 3 N/A 03/06/24 22:22 Months Nurse Filling Out Transfusion [email or web address] 03/06/24 22:22 & Questions: Date: 03/06/24 03/06/24 22:22 Time: 22:36 03/06/24 22:22 Patient unable to answer at this time (ie. confused, unrespo /Reproduction History /Reproductive History - credit charge authorizer: /Reproductive Hx- credit charge authorizer Hx Now No 03/07/24 21:16 Gestational Age (in weeks): EDC: Hx Hx Para Hx Section SAB No 03/07/24 21:16 Active Medications Active Medications: Current Medications Generic Name Dose Route Start Last Admin Trade Name Freq PRN Reason Stop Dose Admin Acetaminophen 1,000 mg 03/08/24 14:00 03/10/24 06:44 Acetaminophen 500 Mg Tablet PO 1,000 mg Q8 JAMES Administration Albuterol Sulfate 2.5 mg 03/07/24 18:01 Albuterol 2.5 Mg/3 Ml Vial.Neb. INHALATION Q2H PRN PRN SOB &/OR WHEEZING Albuterol/Ipratropium 3 ml 03/07/24 18:35 03/10/24 07:23 Ipratropium/Albuterol Sulfate 3 Ml Ampul.Neb INHALATION 3 ml Q6HWA.RT JAMES Administration Aspirin 81 mg 03/07/24 10:00 03/08/24 11:28 Aspirin E.C. 81 Mg Tablet PO 81 mg DAILY JAMES Administration Atorvastatin Calcium 40 mg 03/07/24 22:00 03/09/24 21:45 Atorvastatin Calcium 40 Mg Tablet PO 40 mg QHS JAMES Administration Budesonide 0.5 mg 03/07/24 18:35 03/10/24 07:23 Budesonide Respules 0.5 Mg/2 Ml Ampul.Neb. INHALATION 0.5 mg Q12H.RT JAMES Administration Clopidogrel Bisulfate 75 mg 03/07/24 10:00 03/09/24 08:53 Clopidogrel Bisulfate 75 Mg Tablet PO 75 mg DAILY JAMES Administration Compound Med 2 click 03/09/24 22:00 03/10/24 08:28 Arthritis Pain Compound 60 Click Tube TOPICAL 2 click BID JAMES Administration Protocol Duloxetine HCl 60 mg 03/07/24 10:00 03/09/24 08:52 Duloxetine Hcl 60 Mg Capsule PO 60 mg DAILY JAMES Administration Enoxaparin Sodium 40 mg 03/10/24 10:00 Enoxaparin 40 Mg/0.4 Ml Syringe SC DAILY JAMES Furosemide 60 mg 03/07/24 10:00 03/09/24 08:52 Furosemide 20 Mg Tablet PO 60 mg DAILY JAMES Administration Protocol Gabapentin 800 mg 03/07/24 22:00 03/10/24 06:44 Gabapentin 800 Mg Tablet PO 800 mg TID JAMES Administration Glucagon 1 mg 03/06/24 19:08 Glucagon 1 Mg/Ml Syringe IM X1 PRN Hypoglycemia Protocol Dextrose 250 mls @ 0 mls/hr 03/06/24 19:08 Dextrose 10%-Water IV .Q0M PRN HYPOGLYCEMIA Protocol As Directed Sodium Chloride 100 mls @ 15 mls/hr 03/06/24 22:56 IV .Q6H40M PRN Saline Flush Sodium Chloride 100 mls @ 15 mls/hr 03/06/24 22:56 03/10/24 06:54 IV 15 mls/hr .Q6H40M PRN Administration Additional IVPB Infusion Cefazolin Sodium 2 gm/ Sodium 110 mls @ 150 mls/hr 03/08/24 14:00 03/10/24 07:31 Chloride IV Infused Q8 JAMES Infusion Lactated Ringer's 1,000 mls @ 15 mls/hr 03/10/24 11:15 IV 03/13/24 05:54 .Q48H [facility] Protocol Insulin Human Lispro 0 unit 03/07/24 00:00 03/10/24 06:44 Insulin Lispro 100 Unit/Ml Insuln.Pen SC Not Given Q6 [facility] Protocol L-Arginine/L-Glutamine/Calcium HMB 1 packet 03/07/24 17:00 03/10/24 08:28 Wagner (Unflavored) Packet PO Not Given BIDCM [facility] Levothyroxine Sodium 75 mcg 03/08/24 06:00 03/10/24 06:44 Levothyroxine 75 Mcg Tablet PO 75 mcg DAILY@0600 JAMES Administration Mirtazapine 45 mg 03/07/24 22:00 03/09/24 21:44 Mirtazapine 15 Mg Tablet PO 45 mg QHS JAMES Administration Morphine Sulfate 4 mg 03/07/24 04:54 03/10/24 06:47 Morphine 4 Mg/Ml Syringe IV 4 mg Q3H PRN PRN Administration Pain Score 6-10 Nicotine 21 mg 03/06/24 19:00 03/09/24 08:52 Nicotine 21 Mg Patch TD 21 mg DAILY JAMES Administration Ondansetron HCl 4 mg 03/06/24 17:04 Ondansetron 4 Mg/2 Ml Vial IV Q8H PRN PRN NAUSEA/VOMITING Oxycodone HCl 5 mg 03/07/24 04:54 03/09/24 22:57 Oxycodone 5 Mg Tablet PO 5 mg Q4H PRN PRN Administration pain 4-10 Pantoprazole Sodium 40 mg 03/08/24 10:00 03/09/24 08:52 Pantoprazole Sodium 40 Mg Tablet PO 40 mg DAILY JAMES Administration Senna/Docusate Sodium 2 tablet 03/06/24 17:04 03/08/24 17:32 Senna/Docusate Sodium 1 Tablet PO 2 tablet BID PRN PRN Administration Constipation Sodium Chloride 10 - 40 ml 03/06/24 22:56 03/09/24 14:26 0.9% Saline Lock 10 Ml Syringe IV 10 ml UD PRN Administration SALINE FLUSH [facility] Medical History Wears glasses No natural teeth Diabetes Thyroid disease High cholesterol Blackout History of GI bleed Smoker BiPAP (biphasic positive airway pressure) dependence Sleep apnea Shortness of breath on exertion Chronic cough History of edema Leg cramps History of stress test Cardiology follow-up encounter Elevated LFTs Back pain Dorsalgia of thoracolumbar region Patellofemoral arthritis of right knee Bilateral knee pain Situational syncope Chest pain, unspecified Type 2 diabetes mellitus Essential hypertension Pneumonia due to other streptococci Atherosclerosis of coronary artery of [place] heart without angina pectoris Right bundle-branch block Gastroesophageal reflux disease Hypertriglyceridemia Obstructive sleep apnea Body mass index (BMI) 35 or more Tobacco abuse COPD (chronic obstructive pulmonary disease) MASON (dyspnea on exertion) Morbid obesity due to excess calories Localized edema Long-term use of high-risk medication Hyperlipidemia Difficulty swallowing Stage 2 moderate COPD by GOLD classification Sinus drainage Home Medications ?Medication ?Instructions ?Recorded ?Last Taken ?Type albuterol sulfate 90 mcg/actuation 6.7 g IH PRN PRN Wheezing 12/06/14 Unknown History aerosol inhaler ergocalciferol (vitamin D2) 1,250 50,000 unit PO Q7D 12/06/14 Unknown History mcg (50,000 unit) capsule fluticasone propionate 50 1 spray NASAL DAILY 05/05/16 Unknown History mcg/actuation nasal spray,suspension aspirin 81 mg tablet,delayed 81 mg PO DAILY 08/11/19 Unknown History release duloxetine 60 mg capsule,delayed 60 mg PO DAILY 08/11/19 Unknown History release levothyroxine 50 mcg tablet 75 mcg PO DAILY 08/11/19 Unknown History losartan 50 mg tablet 25 mg PO QDAY 08/11/19 Unknown History mirtazapine 15 mg tablet 45 mg PO QHS 08/11/19 Unknown History multivitamin 1 cap PO DAILY 08/11/19 Unknown History nitroglycerin 0.4 mg sublingual 0.4 mg sublingual ONCE PRN chest 08/11/19 Unknown History tablet (Nitrostat) pain budesonide-formoterol HFA 160 2 puff inhalation BID #10.2 grams 12/05/19 Unknown Rx mcg-4.5 mcg/actuation aerosol inhaler clopidogrel 75 mg tablet 75 mg PO QDAY #90 tabs 12/29/19 Unknown Rx furosemide 40 mg tablet (Lasix) 60 mg PO DAILY 11/15/20 Unknown History metformin 1,000 mg tablet 1,000 mg PO BID 11/15/20 Unknown History isosorbide mononitrate 60 mg 30 mg (1/2 x 60 mg) PO BID #90 tabs 12/03/21 Unknown Rx tablet,extended release 24 hr gabapentin 400 mg capsule 800 mg PO TID 09/18/22 Unknown History omeprazole 40 mg capsule,delayed 40 mg PO DAILY 1 month #30 caps 06/05/23 Unknown Rx release rosuvastatin 20 mg tablet 20 mg PO QHS 1 month #30 tabs 06/05/23 Unknown Rx icosapent ethyl 1 gram capsule 2 g PO BID 06/30/23 Unknown History empagliflozin 25 mg tablet 25 mg PO DAILY #30 tabs 11/24/23 Unknown Rx (Jardiance) fluticasone fur. 100 mcg-umeclid 1 ea inhalation DAILY copd 03/07/24 Unknown History 62.5 mcg-vilant 25 mcg inhalat.powder (Trelegy Ellipta) gabapentin 800 mg tablet 800 mg PO TID pain 03/07/24 Unknown History Allergy/AdvReac Type Severity Reaction Status Date / Time No Known Allergies Allergy Verified 03/06/24 15:05 Family History Father CVA (cerebral vascular accident) Brother CAD (coronary artery disease) Diabetes Mother COPD (chronic obstructive pulmonary disease) Sarcoidosis Surgical History S/P laparoscopic cholecystectomy H/O umbilical hernia repair History of coronary artery stent placement (~03/25/16) History of carpal tunnel surgery of right wrist History of left heart catheterization Social History household members: spouse current occupational status: disabled Smoking Status: Current every day smoker tobacco type: cigarettes Tobacco: How many years used: 30 second hand exposure: Yes alcohol intake: never substance use type: does not use caffeine: Yes Type: coffee Number of servings: 2 what type of physical activity do you participate in: none Review of Systems (Anesthesia) ROS Narrative System reviewed and no additional complaints, except as documented.
[2024-03-10] MEDS: Lactated Ringers 1,000 ML 15 ML IV (11:12)
--- NOTE | 2024-03-10 11:21 | ANES.CONFIRM ---
Anesthesia: Confirm Documents Multiple Procedures on Account (2) Confirmed Documents: Yes
--- NOTE | 2024-03-10 11:23 | ANES.CONFIRM ---
Anesthesia: Confirm Documents Multiple Procedures on Account (2) Confirmed Documents: Yes
[2024-03-10] MEDS: Sugammadex Sodium 200 MG/2 ML VIAL IV (13:47)
--- NOTE | 2024-03-10 14:00 | PCM.POST.ANE ---
Anesthesia: Postop Eval I Current Vital Signs Temperature: 98.1 F Pulse Rate: 62 Blood Pressure: 160/84 Respiratory Rate: 18 Pulse Ox: 98 Oxygen Delivery Method: Room Air Assessment Airway patent: Yes Spontaneous unlabored respirations: Yes Mental status: Awake and Calm nausea: No Vomiting: No Anesthesia Complication: No Fluid Hydration Crystalloid volume administer (ml): 600 Total IV fluid infused: 600 Progress Note Anesthesia document: Postop Eval 1 completed: Yes
--- NOTE | 2024-03-10 14:14 | OP.PCM_ITS ---
Operative Report Date of Procedure: 03/10/24 Surgery/Procedure Date: 10 March 2024 Incision/Procedure Start Time: 12:51 p.m. Incision Close/Procedure End Time: 1:43 PM (52 minutes) PATIENT: Lisandro Garibay SURGEON: Sergio Edwards MD CUSTOMER CONTACT SPECIALIST: Diana Smith (held retractors and irrigation) PRE-OPERATIVE DIAGNOSIS: Right upper extremity hand infections POST-OPERATIVE DIAGNOSIS: Same PROCEDURE PERFORMED: 1) Incision and drainage right long finger flexor tendon sheath, CPT 83351 2) Right carpal tunnel release/revision release, CPT 27169 3) Right long finger PIP joint arthrotomy for septic joint washout, CPT 22185 OPERATIVE FINDINGS: * Purulent drainage within the right long finger PIP joint, washed out * No purulence within the carpal tunnel * Purulence within the sheath of the right long finger distal to the palm but not proximal to the palm Indications: Lisandro Garibay is a 58-year-old male with a complicated past medical history including poorly controlled diabetes who presents with a right long finger flexor tenosynovitis. He was taken to the OR on Mar for I&D and grew MSSA. His pain got worse today. He now has purulence coming from the previous incision and has a painful right long finger proximal interphalangeal joint as well as pressure sensation and pain over the carpal tunnel. Presents today for a second look washout and possible right long finger PIP joint arthrotomy for washout and possible carpal tunnel release (previously released in distant past). I talked to him and his family extensively about the risks of surgery including bleeding, risk of anesthesia on his heart and lungs, need for repeat surgeries, damage to nerves and arteries and other surrounding structures. He understood that this was an emergent procedure, and agreed to proceed. Procedure Details: Consent was obtained preoperatively.? The patient was brought to the operating room and placed in the supine position with an armboard in place and a tourniquet was placed on the right upper extremity on the arm. SCDs were placed and were on and activated for induction. A sign in was completed and general anesthesia was induced.? The right upper extremity was then prepped and draped in sterile fashion and a presurgical timeout was performed. A tourniquet was applied (tourniquet time 12:51 PM to 1:22 PM) on the arm and inflated to 250 mmHg. We began the procedure by removing the 1 suture at the apex of a Shakira flap. A small amount of purulence was encountered. The flexor sheath was then irrigated with normal saline (500 cc) from the A5 bruce incision to the A1 bruce incision using an Angiocath to irrigate the sheath and remove all of the fluid. 200 cc of Irrisept was then irrigated through the flexor sheath as well between A5 and A1 pulleys. We then turned our attention of the carpal tunnel. Using the ring finger as a landmark, the radial border of the ring finger was transposed over the transverse carpal ligament on the palm approximately 5 mm ulnar to the thenar crease, and a 15 blade scalpel was used to make an incision over the lolly and dissection was carefully taken over the scarred transverse carpal ligament remnants with direct visualization with loupe magnification. We were able to do an open revision carpal tunnel release and enter the carpal tunnel and identify the median nerve and the flexor tendons. There was no sign of any purulence. We were able to irrigate the carpal tunnel with copious amounts normal saline and get irrigation to go out of the incision from the A1 bruce distally. 100 cc of Irrisept was also used in this location. There appeared to be a fluid collection on the ulnar border of the long finger P1 volar soft tissue which was entered with a direct incision in the mid axial position, and it was cultured and washed out. This gave us access to the PIP joint, which was painful on my exam to axial loading preoperatively. We then continued with direct loupe visualization to dissect down to the PIP joint on the ulnar border through a lateral approach to the PIP joint. The transverse retinacular ligament was excised exposing the collateral ligament complex. The PIP joint was entered b a longitudinal incision on the accessory collateral ligament, followed by capsulotomy and entrance into the joint. Purulence was encountered and cultured. Joint was then washed out with an Angiocath using 500 cc of normal saline followed by the remaining 200 cc of Irrisept. The tourniquet was let down and hemostasis was obtained with bipolar electrocautery. The hand wounds were then left open and packed with iodoform gauze, Manuel, and an Zachery wrap. The patient was awakened and taken to the PACU i n stable condition. EBL: 10 cc Anesthesia: General ASA: 3 IVF: 500 cc of LR UOP: Unmeasured Cefazolin per ID (IV antibiotics on the floor send no preoperative antibiotics) Specimens: Soft tissue culture and joint culture POST-OPERATIVE PLAN: Continue Dial soap soaks 3 times per day followed by iodoform packing. Return to the OR tomorrow for another washout of the long fin hans PIP joint and the flexor sheath. N.p.o. at midnight.
[2024-03-10 14:35] LABS: Bedside Glucose 128 mg/dL (74-106)
[2024-03-10] MEDS: oxyCODONE 5 MG Tablet PO ×2 (15:57→20:16)
[2024-03-10] MEDS: Pantoprazole Sodium 40 MG Tablet PO (16:02)
[2024-03-10] MEDS: Aspirin E.C. 81 MG Tablet PO (16:03)
[2024-03-10] MEDS: DULoxetine Hcl 60 MG Capsule PO (16:03)
[2024-03-10] MEDS: Furosemide 20 MG Tablet 60 MG PO (16:03)
[2024-03-10] MEDS: Juven (unflavored) Packet 1 PACKET PO (17:30)
[2024-03-10 17:43] LABS: Bedside Glucose 143 mg/dL (74-106)
[2024-03-10] MEDS: Mirtazapine 15 MG Tablet 45 MG PO (22:24)
[2024-03-10] MEDS: Atorvastatin Calcium 40 MG Tablet PO (22:24)
--- NOTE | 2024-03-10 23:14 | NURSING ---
Dr. Edwards told this RN that this patient should have a soak this evening. This RN used hot warm and dial soap and the patient soaked his hand in the water for 20 minutes.
[2024-03-11] VITALS (21 sets, daily range): BP systolic 120–161; BP diastolic 49–110; PULSE 57–70; RESP 16–18; TEMP 36.1–36.9; O2SAT 87–98; BMI 37.5
[2024-03-11] MEDS: oxyCODONE 5 MG Tablet PO ×3 (00:25→22:36)
[2024-03-11 01:10] LABS: Bedside Glucose 130 mg/dL (74-106)
[2024-03-11] MEDS: 0.9% Saline Lock 10 ML Syringe IV ×3 (04:27→22:38)
[2024-03-11] MEDS: Morphine 4 MG/ML Syringe IV ×3 (04:27→19:47)
[2024-03-11 05:48] LABS: Absolute Lymphocyte Count 2.07 X10^3/uL (0.83-4.51); Absolute Neutrophil Count 2.6 X10^3/uL (2.0-7.7); Basophil# 0.03 X10^3/uL; Basophil% 0.6 % (0-1); Eosinophil# 0.09 X10^3/uL; Eosinophils% 1.7 % (0-5); Hematocrit 47.8 % (40-54); Hemoglobin 16.2 g/dL (13.0-16.5); Lymphocyte # 2.07 X10^3/ul (0.83-4.51); Lymphocyte % 39.2 % (19-41); Mean Corp Hgb Conc 33.9 g/dL (32-36); Mean Corpuscular Volume 100.2 fL (80-94); Mean Platelet Vol. 10.6 fl (6.2-12.0); Monocyte# 0.44 X10^3/uL; Monocyte% 8.3 % (0-10); NRBC Flagged by Analyzer 0 % (0-5); Neutrophil # 2.64 X10^3/uL (2.7-7.7); Platelet Count 108 K/mm3 (150-450); RBC Distribution Width CV 12.2 % (11.6-14.6); RBC Distribution Width SD 45.8 fl (35.1-43.9); Red Blood Count 4.77 M/mm3 (4.6-6.2); White Blood Count 5.3 K/mm3 (4.4-11.0)
[2024-03-11] MEDS: Cefazolin 2 GM in 0.9% Normal Saline (100mL Bag) 100 ML IV ×3 (06:03→22:38)
[2024-03-11] MEDS: Levothyroxine 75 MCG Tablet PO (06:04)
[2024-03-11] MEDS: Acetaminophen 500 MG Tablet 1000 MG PO ×3 (06:04→22:37)
[2024-03-11] MEDS: Gabapentin 800 MG Tablet PO ×3 (06:04→22:36)
[2024-03-11 06:22] LABS: ALB/GLOB Ratio 1.2 RATIO (0.9-2.4); AST(SGOT) 62 U/L (15-37); Alanine Aminotransfer ALT/SGPT 78 U/L (16-61); Albumin, Serum 3.4 g/dL (3.2-5.0); Alkaline Phosphatase 95 U/L (45-117); Anion Gap 5 (5-15); BUN 16 mg/dL (7-18); BUN/Creat Ratio 20.5 RATIO (10-20); Calcium,Total 8.7 mg/dL (8.5-10.1); Chloride 104 mmol/L (98-107); Creatinine, Serum 0.78 mg/dL (0.70-1.30); EST Glomerular Filtration Rate 109 mL/min (>60); Est Glom Filt Rate - Afr Amer 131 mL/min (>60); Estimated Creatinine Clearance 128.52 ml/min; Globulin 2.8 g/dL (2.2-4.2); Glucose 111 mg/dL (74-106); Potassium 3.9 mmol/L (3.5-5.1); Protein, Total 6.2 g/dL (6.4-8.2); Sodium Level 138 mmol/L (136-145)
[2024-03-11 06:27] LABS: Bedside Glucose 135 mg/dL (74-106)
--- NOTE | 2024-03-11 07:06 | PN.SURG_ITS ---
Subjective Subjective Patient doing better this morning. Less pain. Endorses good dressing changes and soaks. Understands plan for return to OR this morning. I updated him last night about yesterday's procedure and all questions answered. Objective Data Objective Data Vital Signs: Vital Signs Temp Pulse Resp BP Pulse Ox O2 Del Method O2 Flow Rate 97.9 F 57 L 16 153/84 H 96 Nasal Cannula 2 03/11/24 04:33 03/11/24 04:33 03/11/24 04:33 03/11/24 04:33 03/11/24 04:33 03/11/24 04:33 03/11/24 04:33 Oxygen Flow Rate (L/min) 2 Oxygen Delivery Method Nasal Cannula Weight: 253 lb 1.451 oz Body Mass Index (BMI) 37.5 Intake & Output: Intake and Output for Last 24 Hours 03/09/24 03/10/24 03/11/24 23:59 23:59 23:59 Intake Total 1210 / 1610 1330 / 1730 619.25 / 619.25 Balance 1210 / 1610 1330 / 1730 619.25 / 619.25 Lab / Micro Data 03/11/24 05:18 03/11/24 05:18 Labs: Laboratory Results - last 24 hr 03/10/24 05:48: Sodium 137, Potassium 3.6, Chloride 102, Carbon Dioxide 30.0, Anion Gap 5, BUN 18, Creatinine 0.76, Estim Creat Clear Calc 134.00, Est GFR (MDRD) Af Amer 136, Est GFR (MDRD) Non-Af 112, BUN/Creatinine Ratio 23.7 H, G lucose 108 H, Calcium 8.6, Total Bilirubin 0.70, AST 56 H, ALT 71 H, Alkaline Phosphatase 95, Total Protein 6.3 L, Albumin 3.6, Globulin 2.7, Albumin/Globulin Ratio 1.3 03/10/24 06:43: POC Glucose 113 H 03/10/24 10:26: POC Glucose 117 H 03/10/24 14:17: POC Glucose 128 H 03/10/24 17:23: POC Glucose 143 H 03/11/24 00:26: POC Glucose 130 H 03/11/24 05:18: WBC 5.3, RBC 4.77, Hgb 16.2, Hct 47.8, MCV 100.2 H, MCH 34.0 H, MCHC 33.9, RDW Std Deviation 45.8 H, RDW Coeff of Autumn 12.2, Plt Count 108 L, MPV 10.6, Immature Gran % (Auto) 0.200, Neut % (Auto) 50.0, Lymph % (Auto) 39.2, [place] % (Auto) 8.3, Eos % (Auto) 1.7, Baso % (Auto) 0.6, Absolute Neuts (auto) 2.6, Absolute Lymphs (auto) 2.07, Nucleated RBC % 0, Sodium 138, Potassium 3.9, Chloride 104, Carbon Dioxide 29.0, Anion Gap 5, BUN 16, Creatinine 0.78, Estim Creat Clear Calc 128.52, Est GFR (MDRD) Af Amer 131, Est GFR (MDRD) Non-Af 109, BUN/Creatinine Ratio 20.5 H, Glucose 111 H, Calcium 8.7, Total Bilirubin 0.60, A ST 62 H, ALT 78 H, Alkaline Phosphatase 95, Total Protein 6.2 L, Albumin 3.4, Globulin 2.8, Albumin/Globulin Ratio 1.2 03/11/24 06:07: POC Glucose 135 H Micro: Microbiology 03/06/24 21:00 Tissue - Hand Gram Stain - Final 03/06/24 21:00 Tissue - Hand Wound Culture - Final Staphylococcus aureus 03/06/24 21:00 Wound Drainage - Aerobic & Anaerobic Swabs Gram Stain - Final 03/06/24 21:00 Wound Drainage - Aerobic & Anaerobic Swabs Wound Culture - Final Staphylococcus aureus 03/06/24 21:00 Wound Drainage - Aerobic & Anaerobic Swabs Anaerobic Culture - Preliminary Physical Exam Narrative RUE Seen and examined. No purulence from the incisions today. No streaking erythema/lymphadenopathy. Less pain with axial loading of the right long finger. Motor: Able to bend MP, PIP, and DIP joints of the right long finger, but limited 2/2 swelling. Sensation: Intact to light touch on the radial and ulnar borders of the right long finger. Vascular: <2 second capillary refill on the right long finger. Const General Appearance: cooperative Eyes EOMs intact bilaterally Neck full ROM Resp normal respiratory effort Cardio regular rate Extremity Extremity Narrative: No swelling in the lower extremities/calves SCDs on and activated Assessment & Plan Assessment/Plan (1) Flexor tenosynovitis of finger: PLAN: Patient improving now. Needs a third look wash out today for definitive source control. Continue NPO Surgery today for repeat joint wash out, repeat flexor sheath wash out. F/u cultures Appreciate ID following for MSSA infection Continue tight blood glucose control (low 100s over past 24 hours). I talked the patient extensively about the risks of surgery, including bleeding, worsening infection, damage to surrounding structures (discussed arthrotomy and possible tendon damage, discussed carpal tunnel release and possible nerve damage, discussed risks of damage to digital arteries/nerves), further wound formation, need for wound care, need for repeat operations, failure to obtain the desired result, DVT/PE, and the risks of anesthesia including . All of their questions were answered, and they agreed to proceed with surgery. Charges/Coding Procedures Integumentary [id number]: [id number] Global Visit
[2024-03-11] MEDS: Ipratropium/Albuterol Sulfate 3 ML AMPUL.NEB INHALATION ×2 (07:45→19:10)
[2024-03-11] MEDS: Budesonide Respules 0.5 MG/2 ML AMPUL.NEB. INHALATION ×2 (07:46→19:10)
--- NOTE | 2024-03-11 08:02 | PN.HOSP_ITS ---
Reason for Visit Reason for Visit: Diagnoses Type 2 diabetes mellitus with diabetic polyneuropathy (03/06/24) Morbid (severe) obesity due to excess calories (03/06/24) Essential (primary) hypertension (03/06/24) Unspecified synovitis and tenosynovitis, unspecified hand (03/06/24) shelter (current) use of insulin (03/06/24) Subjective Subjective Feeling better. Objective Data Objective Data Vital Signs: Vital Signs Temp Pulse Resp BP Pulse Ox O2 Del Method O2 Flow Rate 36.6 C 70 18 153/84 H 96 Nasal Cannula 2 03/11/24 04:33 03/11/24 07:44 03/11/24 07:44 03/11/24 04:33 03/11/24 04:33 03/11/24 07:43 03/11/24 07:43 Oxygen Flow Rate (L/min) 2 Oxygen Delivery Method Nasal Cannula Weight: 114.8 kg Body Mass Index (BMI) 37.5 Intake & Output: Intake and Output for Last 24 Hours 03/09/24 03/10/24 03/11/24 23:59 23:59 23:59 Intake Total 1210 / 1610 1330 / 1730 779.25 / 779.25 Balance 1210 / 1610 1330 / 1730 779.25 / 779.25 Lab / Micro Data 03/11/24 05:18 03/11/24 05:18 Labs: Laboratory Results - last 24 hr 03/10/24 10:26: POC Glucose 117 H 03/10/24 14:17: POC Glucose 128 H 03/10/24 17:23: POC Glucose 143 H 03/11/24 00:26: POC Glucose 130 H 03/11/24 05:18: WBC 5.3, RBC 4.77, Hgb 16.2, Hct 47.8, MCV 100.2 H, MCH 34.0 H, MCHC 33.9, RDW Std Deviation 45.8 H, RDW Coeff of Autumn 12.2, Plt Count 108 L, MPV 10.6, Immature Gran % (Auto) 0.200, Neut % (Auto) 50.0, Lymph % (Auto) 39.2, Burnett % (Auto) 8.3, Eos % (Auto) 1.7, Baso % (Auto) 0.6, Absolute Neuts (auto) 2.6, Absolute Lymphs (auto) 2.07, Nucleated RBC % 0, Sodium 138, Potassium 3.9, Chloride 104, Carbon Dioxide 29.0, Anion Gap 5, BUN 16, Creatinine 0.78, Estim Creat Clear Calc 128.52, Est GFR (MDRD) Af Amer 131, Est GFR (MDRD) Non-Af 109, BUN/Creatinine Ratio 20.5 H, Glucose 111 H, Calcium 8.7, Total Bilirubin 0.60, A ST 62 H, ALT 78 H, Alkaline Phosphatase 95, Total Protein 6.2 L, Albumin 3.4, Globulin 2.8, Albumin/Globulin Ratio 1.2 03/11/24 06:07: POC Glucose 135 H Micro: Microbiology 03/06/24 21:00 Tissue - Hand Gram Stain - Final 03/06/24 21:00 Tissue - Hand Wound Culture - Final Staphylococcus aureus 03/06/24 21:00 Wound Drainage - Aerobic & Anaerobic Swabs Gram Stain - Final 03/06/24 21:00 Wound Drainage - Aerobic & Anaerobic Swabs Wound Culture - Final Staphylococcus aureus 03/06/24 21:00 Wound Drainage - Aerobic & Anaerobic Swabs Anaerobic Culture - Preliminary Physical Exam Const alert and no apparent distress HEENT head/scalp atraumatic Resp normal respiratory effort, no retractions, no use of accessory muscles and clear to auscultation bilaterally Cardio regular rate and regular rhythm Assessment & Plan Assessment/Plan (1) Flexor tenosynovitis of finger: PLAN: Plan Flexor tenosynovitis of right middle finger secondary to Staph aureus * Patient went to the OR 03/06 with washout. Worsening condition and went back to OR on 03/10: where there was puss over the tendon and purulence in right long finger PIP. Tentative plan for return to OR on the . * Cultures positive for MSSA * Abx with cefazolin. ID following. * Plan to go back to the OR today. Chronic conditions: * COPD: Continue home inhalers. Patient noted to be 86% on room air but saturating well on 2 L not been resumed on inhalers yet, suspect this is the culprit will monitor closely, denied any respiratory symptoms. 03/08: Now 94% on room air, respiratory status significantly improved after resumption of inhalers. 03/09: Patient denies having any shortness of breath. Had an 88% on room air yesterday evening. Continue Lasix, continue nebs and inhaled budesonide. Incentive spirometer ordered * type 2 diabetes mellitus: Glucose checks and sliding scale insulin. 03/08: Glucose 94 this a.m., patient presently n.p.o., may need further adjustment once patient persistently taking n.p.o., continue sliding scale insulin. 03/09: Glucose remains fairly well-controlled for inpatient setting. Continue sliding scale at this time and adjust as needed * CANDELARIA. Resume home NIPPV. 03/08: Patient did use NIPPV last night and did well with this * History of CVA/CAD s/o stenting-Continue aspirin, statin, Plavix * Tobacco use-Advise cessation-Nicotine replacement available if desired * GERD-Continue PPI * Hypothyroidism-Continue Synthroid * Depression-Continue Cymbalta-Continue mirtazapine VTE prophylaxis: LMWH Charges/Coding Visit Charges Inpatient E&M: 16190 [facility] Hosp L1
[2024-03-11 10:42] LABS: Bedside Glucose 116 mg/dL (74-106)
--- NOTE | 2024-03-11 11:20 | NURSING ---
Pt to OR via bed
--- NOTE | 2024-03-11 12:13 | PRE.ANES_ITS ---
ASA Classification* ASA Classification ASA Classification: 3 Assessment & Plan Anesthesia* Anesthesia Assessment Anesthesia Assessment: Discussed sedation and/or anesthesia options, risks, benefits, and alternatives with patient/parents/legal guardian/POA. Questions invited. The patient/parents/legal guardian/POA seems to understand and agrees to proceed with anesthesia plan. Reviewed the physical assessment, medical history, allergy history and patient home medications list prior to surgery/procedure/anesthetic and documented any changes. Performed airway and anesthesia risk assessments. Anesthesia Type Anesthesia Type: General (see written pre anesthesia record for full assessment) Anesthesia Focused Assessment* Temperature: 98.3 F Pulse Rate: 57 Blood Pressure: 134/74 Respiratory Rate: 16 Pulse Ox: 94 Airway Assessment Mouth opens: >3 cm Mallampati Score: II Focused Labs Anesthesia Preop lab: CBC WBC 5.3 K/mm3 (4.4-11.0) 03/11/24 05:18 RBC 4.77 M/mm3 (4.6-6.2) 03/11/24 05:18 Hgb 16.2 g/dL (13.0-16.5) 03/11/24 05:18 Hct 47.8 % (40-54) 03/11/24 05:18 Plt Count 108 K/mm3 (150-450) L 03/11/24 05:18 CHEMISTRY Potassium 3.9 mmol/L (3.5-5.1) 03/11/24 05:18 Sodium 138 mmol/L (136-145) 03/11/24 05:18 BUN 16 mg/dL (7-18) 03/11/24 05:18 Creatinine 0.78 mg/dL (0.70-1.30) 03/11/24 05:18 Glucose 111 mg/dL (74-106) H 03/11/24 05:18 POC Glucose 116 mg/dL (74-106) H 03/11/24 10:23 TSH 1.900 uIU/mL (0.358-3.740) 03/08/24 06:06 COAG PT 14.2 SECONDS (11.7-14.9) 03/06/24 15:50 Pre-Assessment Diagnosis/Proposed Procedure Planned Operative Procedure(s): Irrigation and debridement of right hand Anesthesia History Anesthesia History - logistics planning manager: Anesthesia History - logistics planning manager Hx Hospitalization No 06/30/23 12:45 Any Problems With Anesthesia No 03/07/24 21:16 Cholinesterase deficiency No 03/07/24 21:16 You/Your Family Experience No 03/07/24 21:16 fever (hyperthermia) with Relationship Recent Exposure to Contagious Disease Does patient have nerve No 03/07/24 21:16 stimulator Patient instructed to have device shut off --Does patient have Pacemaker No 03/11/24 11:13 or ICD? When Was Last Pacemaker Check QUESTION #4 FULL TEXT: You/Your Family Experience fever (hyperthermia) with Anesthesia Last Oral Intake Last Oral intake: Last Oral Intake NPO since 00:00 03/11/24 11:13 Meds taken in AM with sips of No 03/11/24 11:13 water? Meds patient instructed to take am of surgery PONV PONV - logistics planning manager: PONV - logistics planning manager Female HX of Motion Sickness HX of N/V After Surgery Non-Smoker Duration of Surgery greater than 60 minutes Number of Risk Factors PONV Score Height & Weight Height & Weight: Anesthesia: Height & Weight Height 5 ft 8.9 in 03/11/24 11:13 Weight: 114.8 kg 03/11/24 11:13 Body Mass Index (BMI) 37.5 03/11/24 11:13 Respiratory Assessment Respiratory Assessment - logistics planning manager: Respiratory Tract Infection Hx - logistics planning manager Hx Respiratory Tract Infection No 03/07/24 21:16 STOP Sleep Apnea STOP Sleep Apnea - logistics planning manager: STOP Sleep Apnea - logistics planning manager Hx Hypertension Yes 03/11/24 11:51 Hx Sleep Apnea Yes 03/10/24 14:49 CPAP No 03/06/24 22:22 BIPAP Yes 03/06/24 22:22 Do you snore loudly (louder than talking or can be heard Do you often feel tired/ fatigued/ sleepy during daytime? Has anyone observed you stop breathing during sleep? STOP Results Positive 03/06/24 22:22 QUESTION #5 FULL TEXT : Do you snore loudly (louder than talking or can be heard through closed doors)? Tobacco Use History Tobacco Use History - logistics planning manager: Tobacco Use History - logistics planning manager Tobacco Use Smoking Status Current every day smoker 03/07/24 10:05 Hx Tobacco Use Yes 03/06/24 22:22 Years Smoking Packs Smoked per Day 1.5 03/06/24 22:22 Smoking Cessation Date was within the last 15 years Hx Smoking Cessation Date Hx Smoking Cessation No 03/06/24 22:22 Counseling Hematologic Medial History Hematologic Hx - logistics planning manager: Hematologic Medical Hx - ground instructor basic Hx of Blood Transfusion No 03/06/24 22:22 Hx of Transfusion in last 3 No 03/06/24 22:22 Months Date of Last Transfusion (if within last 3 months) Ever experience any problems No 03/06/24 22:22 with transfusion(s)? Specify any problems Hx of Preganancy in last 3 N/A 03/06/24 22:22 Months Nurse Filling Out Transfusion [email or web address] 03/06/24 22:22 & Questions: Date: 03/06/24 03/06/24 22:22 Time: 22:36 03/06/24 22:22 Patient unable to answer at this time (ie. confused, unrespo /Reproduction History /Reproductive History - logistics planning manager: /Reproductive Hx- logistics planning manager Hx Now No 03/07/24 21:16 Gestational Age (in weeks): EDC: Hx Hx Para Hx Section SAB No 03/07/24 21:16 Active Medications Active Medications: Current Medications Generic Name Dose Route Start Last Admin Trade Name Freq PRN Reason Stop Dose Admin Acetaminophen 1,000 mg 03/08/24 14:00 03/11/24 06:04 Acetaminophen 500 Mg Tablet PO 1,000 mg Q8 JAMES Administration Albuterol Sulfate 2.5 mg 03/07/24 18:01 Albuterol 2.5 Mg/3 Ml Vial.Neb. INHALATION Q2H PRN PRN SOB &/OR WHEEZING Albuterol/Ipratropium 3 ml 03/07/24 18:35 03/11/24 07:45 Ipratropium/Albuterol Sulfate 3 Ml Ampul.Neb INHALATION 3 ml Q6HWA.RT JAMES Administration Aspirin 81 mg 03/07/24 10:00 03/10/24 16:03 Aspirin E.C. 81 Mg Tablet PO 81 mg DAILY JAMES Administration Atorvastatin Calcium 40 mg 03/07/24 22:00 03/10/24 22:24 Atorvastatin Calcium 40 Mg Tablet PO 40 mg QHS JAMES Administration Budesonide 0.5 mg 03/07/24 18:35 03/11/24 07:46 Budesonide Respules 0.5 Mg/2 Ml Ampul.Neb. INHALATION 0.5 mg Q12H.RT JAMES Administration Clopidogrel Bisulfate 75 mg 03/07/24 10:00 03/10/24 16:04 Clopidogrel Bisulfate 75 Mg Tablet PO Not Given DAILY JAMES Compound Med 2 click 03/09/24 22:00 03/10/24 22:23 Arthritis Pain Compound 60 Click Tube TOPICAL 2 click BID JAMES Administration Protocol Duloxetine HCl 60 mg 03/07/24 10:00 03/10/24 16:03 Duloxetine Hcl 60 Mg Capsule PO 60 mg DAILY JAMES Administration Enoxaparin Sodium 40 mg 03/10/24 10:00 03/10/24 16:03 Enoxaparin 40 Mg/0.4 Ml Syringe SC Not Given DAILY JAMES Furosemide 60 mg 03/07/24 10:00 03/10/24 16:03 Furosemide 20 Mg Tablet PO 60 mg DAILY JAMES Administration Protocol Gabapentin 800 mg 03/07/24 22:00 03/11/24 06:04 Gabapentin 800 Mg Tablet PO 800 mg TID JAMES Administration Glucagon 1 mg 03/06/24 19:08 Glucagon 1 Mg/Ml Syringe IM X1 PRN Hypoglycemia Protocol Dextrose 250 mls @ 0 mls/hr 03/06/24 19:08 Dextrose 10%-Water IV .Q0M PRN HYPOGLYCEMIA Protocol As Directed Sodium Chloride 100 mls @ 15 mls/hr 03/06/24 22:56 IV .Q6H40M PRN Saline Flush Sodium Chloride 100 mls @ 15 mls/hr 03/06/24 22:56 03/10/24 13:35 IV Infused .Q6H40M PRN Infusion Additional IVPB Infusion Cefazolin Sodium 2 gm/ Sodium 110 mls @ 150 mls/hr 03/08/24 14:00 03/11/24 06:47 Chloride IV Infused Q8 JAMES Infusion Lactated Ringer's 1,000 mls @ 15 mls/hr 03/10/24 11:15 03/11/24 01:49 IV 03/13/24 05:54 0 mls/hr .Q48H JAMES Infusion Protocol Insulin Human Lispro 0 unit 03/11/24 16:00 Insulin Lispro 100 Unit/Ml Insuln.Pen SC ACHS JAMES Protocol L-Arginine/L-Glutamine/Calcium HMB 1 packet 03/07/24 17:00 03/10/24 17:30 Wagner (Unflavored) Packet PO 1 packet BIDCM JAMES Administration Levothyroxine Sodium 75 mcg 03/08/24 06:00 03/11/24 06:04 Levothyroxine 75 Mcg Tablet PO 75 mcg DAILY@0600 JAMES Administration Mirtazapine 45 mg 03/07/24 22:00 03/10/24 22:24 Mirtazapine 15 Mg Tablet PO 45 mg QHS JAMES Administration Morphine Sulfate 4 mg 03/07/24 04:54 03/11/24 04:27 Morphine 4 Mg/Ml Syringe IV 4 mg Q3H PRN PRN Administration Pain Score 6-10 Nicotine 21 mg 03/06/24 19:00 03/10/24 16:03 Nicotine 21 Mg Patch TD 21 mg DAILY JAMES Administration Ondansetron HCl 4 mg 03/06/24 17:04 Ondansetron 4 Mg/2 Ml Vial IV Q8H PRN PRN NAUSEA/VOMITING Oxycodone HCl 5 mg 03/07/24 04:54 03/11/24 00:25 Oxycodone 5 Mg Tablet PO 5 mg Q4H PRN PRN Administration pain 4-10 Pantoprazole Sodium 40 mg 03/08/24 10:00 03/10/24 16:02 Pantoprazole Sodium 40 Mg Tablet PO 40 mg DAILY JAMES Administration Senna/Docusate Sodium 2 tablet 03/06/24 17:04 03/08/24 17:32 Senna/Docusate Sodium 1 Tablet PO 2 tablet BID PRN PRN Administration Constipation Sodium Chloride 10 - 40 ml 03/06/24 22:56 03/11/24 04:27 0.9% Saline Lock 10 Ml Syringe IV 10 ml UD PRN Administration SALINE FLUSH [facility] Medical History Wears glasses No natural teeth Diabetes Thyroid disease High cholesterol Blackout History of GI bleed Smoker BiPAP (biphasic positive airway pressure) dependence Sleep apnea Shortness of breath on exertion Chronic cough History of edema Leg cramps History of stress test Cardiology follow-up encounter Elevated LFTs Back pain Dorsalgia of thoracolumbar region Patellofemoral arthritis of right knee Bilateral knee pain Situational syncope Chest pain, unspecified Type 2 diabetes mellitus Essential hypertension Pneumonia due to other streptococci Atherosclerosis of coronary artery of [place] heart without angina pectoris Right bundle-branch block Gastroesophageal reflux disease Hypertriglyceridemia Obstructive sleep apnea Body mass index (BMI) 35 or more Tobacco abuse COPD (chronic obstructive pulmonary disease) MASON (dyspnea on exertion) Morbid obesity due to excess calories Localized edema Long-term use of high-risk medication Hyperlipidemia Difficulty swallowing Stage 2 moderate COPD by GOLD classification Sinus drainage Home Medications ?Medication ?Instructions ?Recorded ?Last Taken ?Type albuterol sulfate 90 mcg/actuation 6.7 g IH PRN PRN Wheezing 12/06/14 Unknown History aerosol inhaler ergocalciferol (vitamin D2) 1,250 50,000 unit PO Q7D 12/06/14 Unknown History mcg (50,000 unit) capsule fluticasone propionate 50 1 spray NASAL DAILY 05/05/16 Unknown History mcg/actuation nasal spray,suspension aspirin 81 mg tablet,delayed 81 mg PO DAILY 08/11/19 Unknown History release duloxetine 60 mg capsule,delayed 60 mg PO DAILY 08/11/19 Unknown History release levothyroxine 50 mcg tablet 75 mcg PO DAILY 08/11/19 Unknown History losartan 50 mg tablet 25 mg PO QDAY 08/11/19 Unknown History mirtazapine 15 mg tablet 45 mg PO QHS 08/11/19 Unknown History multivitamin 1 cap PO DAILY 08/11/19 Unknown History nitroglycerin 0.4 mg sublingual 0.4 mg sublingual ONCE PRN chest 08/11/19 Unknown History tablet (Nitrostat) pain budesonide-formoterol HFA 160 2 puff inhalation BID #10.2 grams 12/05/19 Unknown Rx mcg-4.5 mcg/actuation aerosol inhaler clopidogrel 75 mg tablet 75 mg PO QDAY #90 tabs 12/29/19 Unknown Rx furosemide 40 mg tablet (Lasix) 60 mg PO DAILY 11/15/20 Unknown History metformin 1,000 mg tablet 1,000 mg PO BID 11/15/20 Unknown History isosorbide mononitrate 60 mg 30 mg (1/2 x 60 mg) PO BID #90 tabs 12/03/21 Unknown Rx tablet,extended release 24 hr gabapentin 400 mg capsule 800 mg PO TID 09/18/22 Unknown History omeprazole 40 mg capsule,delayed 40 mg PO DAILY 1 month #30 caps 06/05/23 Unknown Rx release rosuvastatin 20 mg tablet 20 mg PO QHS 1 month #30 tabs 06/05/23 Unknown Rx icosapent ethyl 1 gram capsule 2 g PO BID 06/30/23 Unknown History empagliflozin 25 mg tablet 25 mg PO DAILY #30 tabs 11/24/23 Unknown Rx (Jardiance) fluticasone fur. 100 mcg-umeclid 1 ea inhalation DAILY copd 03/07/24 Unknown History 62.5 mcg-vilant 25 mcg inhalat.powder (Trelegy Ellipta) gabapentin 800 mg tablet 800 mg PO TID pain 03/07/24 Unknown History Allergy/AdvReac Type Severity Reaction Status Date / Time No Known Allergies Allergy Verified 03/06/24 15:05 Family History Father CVA (cerebral vascular accident) Brother CAD (coronary artery disease) Diabetes Mother COPD (chronic obstructive pulmonary disease) Sarcoidosis Surgical History S/P laparoscopic cholecystectomy H/O umbilical hernia repair History of coronary artery stent placement (~03/25/16) History of carpal tunnel surgery of right wrist History of left heart catheterization Social History household members: spouse current occupational status: disabled Smoking Status: Current every day smoker tobacco type: cigarettes Tobacco: How many years used: 30 second hand exposure: Yes alcohol intake: never substance use type: does not use caffeine: Yes Type: coffee Number of servings: 2 what type of physical activity do you participate in: none Review of Systems (Anesthesia) ROS Narrative System reviewed and no additional complaints, except as documented.
[2024-03-11] MEDS: Lactated Ringers 1,000 ML 15 ML IV (12:21)
--- NOTE | 2024-03-11 13:35 | PCM.POST.ANE ---
Anesthesia: Postop Eval I Current Vital Signs Temperature: 97 F Pulse Rate: 65 Blood Pressure: 137/79 Respiratory Rate: 16 Pulse Ox: 94 Oxygen Delivery Method: Room Air Assessment Airway patent: Yes Spontaneous unlabored respirations: Yes nausea: No Vomiting: No Anesthesia Complication: No Fluid Hydration Crystalloid volume administer (ml): 600 Total IV fluid infused: 600 Progress Note Anesthesia document: Postop Eval 1 completed: Yes
--- NOTE | 2024-03-11 13:54 | POSTOPAN2_ITS ---
Anesthesia Postop Eval I Sum Postop Eval Completion status Anesthesia document: Postop Eval 1 completed: Yes Anesthesia Postop Eval I Summary Anesthesia Postop Eval I Summary: Anesthesia Postop Eval I: Assessment Summary Airway patent Yes 03/10/24 14:01 LOST CHARGE CARD [email or web address] Spontaneous unlabored Yes 03/10/24 14:01 LOST CHARGE CARD [email or web address] respirations Mental status Awake,Calm 03/10/24 14:01 LOST CHARGE CARD [email or web address] nausea No 03/10/24 14:01 LOST CHARGE CARD [email or web address] Vomiting No 03/10/24 14:01 LOST CHARGE CARD [email or web address] Anesthesia Postop Eval I: Fluid Summary Crystalloid volume administer 600 03/10/24 14:01 LOST CHARGE CARD [email or web address] (ml) Colloids volume administered ( ml) Blood Product volume administered (ml) Total IV fluid infused 600 03/10/24 14:01 LOST CHARGE CARD [email or web address] Anesthesia Postop Eval I: Summary Notes Anesthesia Complication No 03/10/24 14:01 LOST CHARGE CARD [email or web address] Anesthesia Complication Comment: Post-operative progress note Anesthesia: Postop Eval II Evaluation Mental status: Awake Pain Level: 0 nausea: No Vomiting: No
--- NOTE | 2024-03-11 13:54 | PCM.POSTANE2 ---
Anesthesia Postop Eval I Sum Postop Eval Completion status Anesthesia document: Postop Eval 1 completed: Yes Anesthesia Postop Eval I Summary Anesthesia Postop Eval I Summary: Anesthesia Postop Eval I: Assessment Summary Airway patent Yes 03/10/24 14:01 MANAGER [email or web address] Spontaneous unlabored Yes 03/10/24 14:01 MANAGER [email or web address] respirations Mental status Awake,Calm 03/10/24 14:01 MANAGER [email or web address] nausea No 03/10/24 14:01 MANAGER [email or web address] Vomiting No 03/10/24 14:01 MANAGER [email or web address] Anesthesia Postop Eval I: Fluid Summary Crystalloid volume administer 600 03/10/24 14:01 MANAGER [email or web address] (ml) Colloids volume administered ( ml) Blood Product volume administered (ml) Total IV fluid infused 600 03/10/24 14:01 MANAGER [email or web address] Anesthesia Postop Eval I: Summary Notes Anesthesia Complication No 03/10/24 14:01 MANAGER [email or web address] Anesthesia Complication Comment: Post-operative progress note Anesthesia: Postop Eval II Evaluation Mental status: Awake Pain Level: 0 nausea: No Vomiting: No
--- NOTE | 2024-03-11 14:30 | CASEMGMT ---
Pt went back to OR yesterday and is planned again for OR today. RN CM to follow for pt needs.
[2024-03-11] MEDS: Arthritis Pain Compound 60 CLICK TUBE TOPICAL ×2 (15:40→22:37)
[2024-03-11] MEDS: Furosemide 20 MG Tablet 60 MG PO (15:41)
[2024-03-11] MEDS: Aspirin E.C. 81 MG Tablet PO (15:41)
[2024-03-11] MEDS: DULoxetine Hcl 60 MG Capsule PO (15:42)
[2024-03-11] MEDS: Pantoprazole Sodium 40 MG Tablet PO (15:42)
--- NOTE | 2024-03-11 16:44 | ANES.CONF2 ---
Anesthesia: Confirm Documents Multiple Procedures on Account (3) Confirmed Documents: Yes
[2024-03-11 16:55] LABS: Bedside Glucose 133 mg/dL (74-106)
--- NOTE | 2024-03-11 17:32 | PCM.OP.BLANK ---
Operative Report Date of Procedure: 03/11/24 Surgery/Procedure Date: 11 March 2024 Incision/Procedure Start Time: 13:02 p.m. Incision Close/Procedure End Time: 13:48 PM (46 minutes) PATIENT: Lisandro Garibay SURGEON: Sergio Edwards MD PRESENTATION TEAM MEMBER: Garcia Harrington (held retractors and irrigation) PRE-OPERATIVE DIAGNOSIS: Right upper extremity hand infections POST-OPERATIVE DIAGNOSIS: Same PROCEDURE PERFORMED: 1) Incision and drainage right long finger flexor tendon sheath, CPT 24268 2) Right long finger PIP joint arthrotomy and wash out for septic joint, CPT 33740 OPERATIVE FINDINGS: No purulent drainage on the right hand incisions or in the RLF PIP joint today. Indications: Lisandro Garibay is a 58-year-old male with a complicated past medical history including poorly controlled diabetes who presents with a right long finger flexor tenosynovitis. He was taken to the OR on Mar for I&D and grew MSSA. His pain got worse yesterday, and he was taken for a repeat wash out, CT release, and PIP joint wash out on the RLF. Presents today for a second look/wash out. He understood the risks and benefits and agreed to proceed. Procedure Details: Consent was obtained preoperatively.? The patient was brought to the operating room and placed in the supine position with an armboard in place and a tourniquet was placed on the right upper extremity on the arm. SCDs were placed and were on and activated for induction. A sign in was completed and general anesthesia was induced.? The right upper extremity was then prepped and draped in sterile fashion and a presurgical timeout was performed. A tourniquet was applied (tourniquet time 32 minutes) on the arm and inflated to 250 mmHg. We began the procedure by irrigating the flexor sheath with normal saline (500 cc) and Irricept (400 cc) from the A5 bruce incision to the A1 bruce incision using an Angiocath to irrigate the sheath. We then turned our attention of the carpal tunnel. There was no sign of any purulence. We were able to irrigate the carpal tunnel with copious amounts normal saline. We then turned our attention to the PIP joint wound and we dissected bluntly back into the joint space through the previous incision. No purulence was seen. The joint was then washed out with an Angiocath using 500 cc of normal saline followed by the remaining 100 cc of Irrisept. The tourniquet was let down and hemostasis was obtained with bipolar electrocautery. The rest of the 3liters of NS was then used to wash out the incisions once more. The shilpi incision and the CT incision were then tacked together with one simple suture (3-0 Nylon) each. A 1/4 inch jay drain was sutured into place to keep the ling finger incision open at the level of the A1 bruce release, and the rest of the wounds were packed with iodoform. Manuel and an Zachery wrap were applied. The patient was awakened and taken to the PACU in stable condition. EBL: 5 cc Anesthesia: General ASA: 3 IVF: 600 cc of LR UOP: Unmeasured Cefazolin per ID (IV antibiotics on the floor send no preoperative antibiotics) Specimens: none today POST-OPERATIVE PLAN: Continue Dial soap soaks 3 times per day followed by iodoform packing. No plans for OR tomorrow. [facility] will follow.
[2024-03-11] MEDS: Mirtazapine 15 MG Tablet 45 MG PO (22:37)
[2024-03-11] MEDS: Atorvastatin Calcium 40 MG Tablet PO (22:38)
[2024-03-11] MEDS: Insulin Lispro 100 UNIT/ML INSULN.PEN SC (22:44)
[2024-03-11 23:17] LABS: Bedside Glucose 204 mg/dL (74-106)
[2024-03-12] VITALS (10 sets, daily range): BP systolic 110–133; BP diastolic 63–100; PULSE 54–70; RESP 16–18; TEMP 36.4–37; O2SAT 91–98
[2024-03-12] MEDS: Morphine 4 MG/ML Syringe IV ×4 (00:19→19:56)
[2024-03-12] MEDS: oxyCODONE 5 MG Tablet PO ×4 (03:39→21:22)
[2024-03-12] MEDS: Levothyroxine 75 MCG Tablet PO (04:44)
[2024-03-12] MEDS: Gabapentin 800 MG Tablet PO ×3 (04:44→21:16)
[2024-03-12] MEDS: Acetaminophen 500 MG Tablet 1000 MG PO ×3 (04:45→21:17)
[2024-03-12] MEDS: Cefazolin 2 GM in 0.9% Normal Saline (100mL Bag) 100 ML IV ×3 (06:27→21:16)
[2024-03-12 06:31] LABS: Absolute Neutrophil Count 2.5 X10^3/uL (2.0-7.7); Basophil# 0.04 X10^3/uL; Basophil% 0.7 % (0-1); Eosinophil# 0.11 X10^3/uL; Hematocrit 47.4 % (40-54); Hemoglobin 16.2 g/dL (13.0-16.5); Lymphocyte % 43.6 % (19-41); Mean Corp Hgb Conc 34.2 g/dL (32-36); Mean Corpuscular Hgb 34.2 pg (27.0-32.0); Mean Corpuscular Volume 100.2 fL (80-94); Mean Platelet Vol. 11.4 fl (6.2-12.0); Monocyte# 0.44 X10^3/uL; NRBC Flagged by Analyzer 0 % (0-5); Neutrophil % 45.3 % (47-70); Platelet Count 106 K/mm3 (150-450); RBC Distribution Width CV 12.2 % (11.6-14.6); RBC Distribution Width SD 45.4 fl (35.1-43.9); Red Blood Count 4.73 M/mm3 (4.6-6.2); White Blood Count 5.5 K/mm3 (4.4-11.0)
--- NOTE | 2024-03-12 06:56 | PN.SURG_ITS ---
Subjective Subjective Reports better pain control this morning. Doing a Dial soap soak this morning. No numbness or tingling on his fingers. Objective Data Objective Data Vital Signs: Vital Signs Temp Pulse Resp BP Pulse Ox O2 Del Method O2 Flow Rate 97.6 F L 60 16 128/80 H 97 Bi-pap 2 03/12/24 03:33 03/12/24 03:33 03/12/24 03:33 03/12/24 03:33 03/12/24 03:33 03/12/24 03:33 03/11/24 12:13 Oxygen Flow Rate (L/min) 2 Oxygen Delivery Method Bi-pap Weight: 253 lb 1.451 oz Body Mass Index (BMI) 37.5 Intake & Output: Intake and Output for Last 24 Hours 03/10/24 03/11/24 03/12/24 23:59 23:59 23:59 Intake Total 1330 / 1730 1006.00 / 1206.00 510 / 510 Output Total 0 / 0 Balance 1330 / 1730 1006.00 / 1206.00 510 / 510 Lab / Micro Data 03/12/24 05:25 03/11/24 05:18 Labs: Laboratory Results - last 24 hr 03/11/24 10:23: POC Glucose 116 H 03/11/24 16:35: POC Glucose 133 H 03/11/24 22:44: POC Glucose 204 H 03/12/24 05:25: WBC 5.5, RBC 4.73, Hgb 16.2, Hct 47.4, MCV 100.2 H, MCH 34.2 H, MCHC 34.2, RDW Std Deviation 45.4 H, RDW Coeff of Autumn 12.2, Plt Count 106 L, MPV 11.4, Immature Gran % (Auto) 0.400, Neut % (Auto) 45.3 L, Lymph % (Auto) 43.6 H, [place] % (Auto) 8.0, Eos % (Auto) 2.0, Baso % (Auto) 0.7, Absolute Neuts (auto) 2.5, Absolute Lymphs (auto) 2.40, Nucleated RBC % 0 Micro: Microbiology 03/10/24 13:15 Wound Abcess - Right Hand Gram Stain - Final 03/10/24 13:15 Wound Abcess - Right Hand Wound Culture - Preliminary No growth-Final to follow 03/10/24 13:15 Wound Abcess - Right Hand Anaerobic Culture - Preliminary No growth in 48 hours. 03/10/24 13:15 Tissue - Hand Gram Stain - Final 03/10/24 13:15 Tissue - Hand Wound Culture - Preliminary No growth-Final to follow 03/10/24 13:15 Tissue - Hand Anaerobic Culture - Preliminary No growth in 48 hours. 03/06/24 21:00 Wound Drainage - Aerobic & Anaerobic Swabs Gram Stain - Final 03/06/24 21:00 Wound Drainage - Aerobic & Anaerobic Swabs Wound Culture - Final Staphylococcus aureus 03/06/24 21:00 Wound Drainage - Aerobic & Anaerobic Swabs Anaerobic Culture - Final No anaerobic bacteria isolated. 03/06/24 21:00 Tissue - Hand Gram Stain - Final 03/06/24 21:00 Tissue - Hand Wound Culture - Final Staphylococcus aureus 03/06/24 21:00 Tissue - Hand Anaerobic Culture - Final No anaerobic bacteria isolated. Physical Exam Narrative RUE Seen and examined. No purulence from the incisions today. No streaking erythema/lymphadenopathy. Less pain with axial loading of the right long finger. [place] drain in place in the palm Motor: Able to bend MP, PIP, and DIP joints of the right long finger, but limited 2/2 swelling. Sensation: Intact to light touch on the radial and ulnar borders of the right long finger. Vascular: <2 second capillary refill on the right long finger. Const alert and oriented x3 General Appearance: cooperative Eyes EOMs intact bilaterally Neck full ROM Resp normal respiratory effort Auscultation: rhonchi Cardio regular rate Extremity Extremity Narrative: No swelling in the lower extremities/calves SCDs on and activated Assessment & Plan Assessment/Plan (1) Flexor tenosynovitis of finger: PLAN: Improved exam today No further surgical interventions planned at this time. Continue TID Dial soap soaks and packing of the wounds. F/u cultures from , 10 Mar 2024. Appreciate ID following for MSSA infection (Cefazolin) Continue tight blood glucose control (low 100s over past 24 hours) Continue incentive spirometry (discussed with nursing) Continue ambulation with nursing assistance (discussed). O.K. to continue Plavix and Pxx. Lovenox from surgery standpoint [facility] will continue to follow. Charges/Coding Procedures Integumentary [id number]: [id number] Global Visit
--- NOTE | 2024-03-12 07:05 | PN.HOSP_ITS ---
Reason for Visit Reason for Visit: Diagnoses Type 2 diabetes mellitus with diabetic polyneuropathy (03/06/24) Morbid (severe) obesity due to excess calories (03/06/24) Essential (primary) hypertension (03/06/24) Unspecified synovitis and tenosynovitis, unspecified hand (03/06/24) correction (current) use of insulin (03/06/24) Subjective Subjective Complaining of right knee pain. Denies fall/injury. Has had issues in the past with his knee which has required cortisone injections. Objective Data Objective Data Vital Signs: Vital Signs Temp Pulse Resp BP Pulse Ox O2 Del Method O2 Flow Rate 36.6 C 54 L 16 133/70 H 98 Room Air 2 03/12/24 07:03 03/12/24 07:03 03/12/24 07:03 03/12/24 07:03 03/12/24 07:03 03/12/24 07:03 03/11/24 12:13 Oxygen Flow Rate (L/min) 2 Oxygen Delivery Method Room Air Weight: 114.8 kg Body Mass Index (BMI) 37.5 Intake & Output: Intake and Output for Last 24 Hours 03/10/24 03/11/24 03/12/24 23:59 23:59 23:59 Intake Total 1330 / 1730 1006.00 / 1206.00 510 / 510 Output Total 0 / 0 Balance 1330 / 1730 1006.00 / 1206.00 510 / 510 Lab / Micro Data 03/12/24 05:25 03/12/24 05:25 Labs: Laboratory Results - last 24 hr 03/11/24 10:23: POC Glucose 116 H 03/11/24 16:35: POC Glucose 133 H 03/11/24 22:44: POC Glucose 204 H 03/12/24 05:25: WBC 5.5, RBC 4.73, Hgb 16.2, Hct 47.4, MCV 100.2 H, MCH 34.2 H, MCHC 34.2, RDW Std Deviation 45.4 H, RDW Coeff of Autumn 12.2, Plt Count 106 L, MPV 11.4, Immature Gran % (Auto) 0.400, Neut % (Auto) 45.3 L, Lymph % (Auto) 43.6 H, [place] % (Auto) 8.0, Eos % (Auto) 2.0, Baso % (Auto) 0.7, Absolute Neuts (auto) 2.5, Absolute Lymphs (auto) 2.40, Nucleated RBC % 0 Micro: Microbiology 03/10/24 13:15 Wound Abcess - Right Hand Gram Stain - Final 03/10/24 13:15 Wound Abcess - Right Hand Wound Culture - Preliminary No growth-Final to follow 03/10/24 13:15 Wound Abcess - Right Hand Anaerobic Culture - Preliminary No growth in 48 hours. 03/10/24 13:15 Tissue - Hand Gram Stain - Final 03/10/24 13:15 Tissue - Hand Wound Culture - Preliminary No growth-Final to follow 03/10/24 13:15 Tissue - Hand Anaerobic Culture - Preliminary No growth in 48 hours. 03/06/24 21:00 Wound Drainage - Aerobic & Anaerobic Swabs Gram Stain - Final 03/06/24 21:00 Wound Drainage - Aerobic & Anaerobic Swabs Wound Culture - Final Staphylococcus aureus 03/06/24 21:00 Wound Drainage - Aerobic & Anaerobic Swabs Anaerobic Culture - Final No anaerobic bacteria isolated. 03/06/24 21:00 Tissue - Hand Gram Stain - Final 03/06/24 21:00 Tissue - Hand Wound Culture - Final Staphylococcus aureus 03/06/24 21:00 Tissue - Hand Anaerobic Culture - Final No anaerobic bacteria isolated. Physical Exam HEENT head/scalp atraumatic Resp normal respiratory effort and no retractions Extremity Extremity Narrative: right hand bandaged--did not remove. slight right knee effusion w/o warmth. Neuro Sensorium / Orientation: awake and alert Assessment & Plan Assessment/Plan (1) Flexor tenosynovitis of finger: PLAN: Plan Flexor tenosynovitis of right middle finger secondary to Staph aureus * Surgeries: * Patient went to the OR 03/06 with washout. * Worsening condition and went back to OR on 03/10: where there was puss over the tendon and purulence in right long finger PIP. * 03/11: I+D right long finger flexor tendon sheath. Right long finger PIP arthrotomy and wash out for septic joint. No purulence noted. * Cultures positive for MSSA * Abx with cefazolin. ID following. * Per plastics: no additional surgery at this time. TID Dial soap soaks and packing of the wounds. Plastics to follow. Right knee effusion * atraumatic. has had issues in the past. May be due to arthritis * Ice PRN. Chronic conditions: * COPD: Continue home inhalers. Patient noted to be 86% on room air but saturating well on 2 L not been resumed on inhalers yet, suspect this is the culprit will monitor closely, denied any respiratory symptoms. 03/08: Now 94% on room air, respiratory status significantly improved after resumption of inhalers. 03/09: Patient denies having any shortness of breath. Had an 88% on room air yesterday evening. Continue Lasix, continue nebs and inhaled budesonide. Incentive spirometer ordered * type 2 diabetes mellitus: Glucose checks and sliding scale insulin. 03/08: Glucose 94 this a.m., patient presently n.p.o., may need further adjustment once patient persistently taking n.p.o., continue sliding scale insulin. 03/09: Glucose remains fairly well-controlled for inpatient setting. Continue sliding scale at this time and adjust as needed * CANDELARIA. Resume home NIPPV. 03/08: Patient did use NIPPV last night and did well with this * History of CVA/CAD s/o stenting-Continue aspirin, statin, Plavix * Tobacco use-Advise cessation-Nicotine replacement available if desired * GERD-Continue PPI * Hypothyroidism-Continue Synthroid * Depression-Continue Cymbalta-Continue mirtazapine VTE prophylaxis: LMWH Charges/Coding Visit Charges Inpatient E&M: 95528 [facility] Hosp L1
[2024-03-12 07:09] LABS: ALB/GLOB Ratio 1.4 RATIO (0.9-2.4); AST(SGOT) 62 U/L (15-37); Alanine Aminotransfer ALT/SGPT 72 U/L (16-61); Albumin, Serum 3.7 g/dL (3.2-5.0); Alkaline Phosphatase 94 U/L (45-117); Anion Gap 5 (5-15); BUN 12 mg/dL (7-18); BUN/Creat Ratio 15.5 RATIO (10-20); Calcium,Total 8.8 mg/dL (8.5-10.1); Chloride 101 mmol/L (98-107); Creatinine, Serum 0.78 mg/dL (0.70-1.30); EST Glomerular Filtration Rate 110 mL/min (>60); Est Glom Filt Rate - Afr Amer 133 mL/min (>60); Estimated Creatinine Clearance 128.52 ml/min; Globulin 2.6 g/dL (2.2-4.2); Glucose 127 mg/dL (74-106); Potassium 3.4 mmol/L (3.5-5.1); Protein, Total 6.3 g/dL (6.4-8.2); Sodium Level 136 mmol/L (136-145)
[2024-03-12 07:27] LABS: Bedside Glucose 107 mg/dL (74-106)
[2024-03-12] MEDS: Budesonide Respules 0.5 MG/2 ML AMPUL.NEB. INHALATION ×2 (07:41→19:37)
[2024-03-12] MEDS: Ipratropium/Albuterol Sulfate 3 ML AMPUL.NEB INHALATION ×3 (07:41→19:36)
[2024-03-12] MEDS: Clopidogrel Bisulfate 75 MG Tablet PO (08:12)
[2024-03-12] MEDS: Furosemide 20 MG Tablet 60 MG PO (08:12)
[2024-03-12] MEDS: Enoxaparin 40 MG/0.4 ML Syringe SC (08:13)
[2024-03-12] MEDS: Pantoprazole Sodium 40 MG Tablet PO (08:13)
[2024-03-12] MEDS: DULoxetine Hcl 60 MG Capsule PO (08:13)
[2024-03-12] MEDS: Arthritis Pain Compound 60 CLICK TUBE TOPICAL ×2 (08:14→21:17)
[2024-03-12] MEDS: Aspirin E.C. 81 MG Tablet PO (08:14)
[2024-03-12 11:27] LABS: Bedside Glucose 133 mg/dL (74-106)
[2024-03-12 16:28] LABS: Bedside Glucose 114 mg/dL (74-106)
[2024-03-12] MEDS: 0.9% Saline Lock 10 ML Syringe IV (19:55)
[2024-03-12] MEDS: Mirtazapine 15 MG Tablet 45 MG PO (21:18)
[2024-03-12] MEDS: Atorvastatin Calcium 40 MG Tablet PO (21:18)
[2024-03-12 23:48] LABS: Bedside Glucose 146 mg/dL (74-106)
[2024-03-13] MEDS: Morphine 4 MG/ML Syringe IV ×2 (02:29→13:05)
[2024-03-13] MEDS: 0.9% Saline Lock 10 ML Syringe IV ×2 (02:30→13:05)
[2024-03-13 02:52] VITALS: BP 132/74; PULSE 64; RESP 17; TEMP 36.6; O2SAT 94
[2024-03-13] MEDS: oxyCODONE 5 MG Tablet PO (05:26)
[2024-03-13] MEDS: Gabapentin 800 MG Tablet PO ×3 (05:26→21:09)
[2024-03-13] MEDS: Cefazolin 2 GM in 0.9% Normal Saline (100mL Bag) 100 ML IV ×3 (05:26→21:05)
[2024-03-13] MEDS: Levothyroxine 75 MCG Tablet PO (05:27)
[2024-03-13] MEDS: Acetaminophen 500 MG Tablet 1000 MG PO ×3 (05:27→21:06)
[2024-03-13 05:48] LABS: Basophil# 0.02 X10^3/uL; Basophil% 0.4 % (0-1); Eosinophil# 0.08 X10^3/uL; Eosinophils% 1.6 % (0-5); Hematocrit 44.1 % (40-54); Hemoglobin 14.9 g/dL (13.0-16.5); Lymphocyte % 47.4 % (19-41); Mean Corp Hgb Conc 33.8 g/dL (32-36); Mean Corpuscular Volume 100.7 fL (80-94); Mean Platelet Vol. 11.3 fl (6.2-12.0); Monocyte# 0.43 X10^3/uL; Monocyte% 8.9 % (0-10); NRBC Flagged by Analyzer 0 % (0-5); Neutrophil # 2.01 X10^3/uL (2.7-7.7); Neutrophil % 41.5 % (47-70); Platelet Count 100 K/mm3 (150-450); RBC Distribution Width CV 12.2 % (11.6-14.6); RBC Distribution Width SD 45.7 fl (35.1-43.9); Red Blood Count 4.38 M/mm3 (4.6-6.2); White Blood Count 4.9 K/mm3 (4.4-11.0)
[2024-03-13 06:02] LABS: Bedside Glucose 102 mg/dL (74-106)
[2024-03-13 06:41] LABS: ALB/GLOB Ratio 1.3 RATIO (0.9-2.4); AST(SGOT) 51 U/L (15-37); Alanine Aminotransfer ALT/SGPT 56 U/L (16-61); Albumin, Serum 3.4 g/dL (3.2-5.0); Alkaline Phosphatase 84 U/L (45-117); Anion Gap 3 (5-15); BUN 14 mg/dL (7-18); BUN/Creat Ratio 19.3 RATIO (10-20); Chloride 102 mmol/L (98-107); Creatinine, Serum 0.72 mg/dL (0.70-1.30); EST Glomerular Filtration Rate 119 mL/min (>60); Est Glom Filt Rate - Afr Amer 144 mL/min (>60); Estimated Creatinine Clearance 139.23 ml/min; Globulin 2.6 g/dL (2.2-4.2); Glucose 101 mg/dL (74-106); Potassium 3.5 mmol/L (3.5-5.1); Sodium Level 138 mmol/L (136-145)
--- NOTE | 2024-03-13 06:53 | PN.HOSP_ITS ---
Reason for Visit Reason for Visit: Diagnoses Type 2 diabetes mellitus with diabetic polyneuropathy (03/06/24) Morbid (severe) obesity due to excess calories (03/06/24) Essential (primary) hypertension (03/06/24) Unspecified synovitis and tenosynovitis, unspecified hand (03/06/24) FDC (current) use of insulin (03/06/24) Subjective Subjective Right hand is doing okay. Still with the knee pain today. Objective Data Objective Data Vital Signs: Vital Signs Temp Pulse Resp BP Pulse Ox O2 Del Method O2 Flow Rate 36.6 C 64 17 132/74 H 94 Room Air 2 03/13/24 02:52 03/13/24 02:52 03/13/24 02:52 03/13/24 02:52 03/13/24 02:52 03/13/24 02:52 03/12/24 15:38 Oxygen Flow Rate (L/min) 2 Oxygen Delivery Method Room Air Weight: 114.8 kg Body Mass Index (BMI) 37.5 Intake & Output: Intake and Output for Last 24 Hours 03/11/24 03/12/24 03/13/24 23:59 23:59 23:59 Intake Total 1006.00 / 1206.00 2490 / 2490 410 / 410 Output Total 0 / 0 Balance 1006.00 / 1206.00 2490 / 2490 410 / 410 Lab / Micro Data 03/13/24 05:09 03/13/24 05:09 Labs: Laboratory Results - last 24 hr 03/12/24 05:25: Sodium 136, Potassium 3.4 L, Chloride 101, Carbon Dioxide 30.0, Anion Gap 5, BUN 12, Creatinine 0.78, Estim Creat Clear Calc 128.52, Est GFR (MDRD) Af Amer 133, Est GFR (MDRD) Non-Af 110, BUN/Creatinine Ratio 15.5, G lucose 127 H, Calcium 8.8, Total Bilirubin 0.60, AST 62 H, ALT 72 H, Alkaline Phosphatase 94, Total Protein 6.3 L, Albumin 3.7, Globulin 2.6, Albumin/Globulin Ratio 1.4 03/12/24 07:05: POC Glucose 107 H 03/12/24 11:10: POC Glucose 133 H 03/12/24 16:10: POC Glucose 114 H 03/12/24 21:27: POC Glucose 146 H 03/13/24 05:09: WBC 4.9, RBC 4.38 L, Hgb 14.9, Hct 44.1, MCV 100.7 H, MCH 34.0 H , MCHC 33.8, RDW Std Deviation 45.7 H, RDW Coeff of Autumn 12.2, Plt Count 100 L, MPV 11.3, Immature Gran % (Auto) 0.200, Neut % (Auto) 41.5 L, Lymph % (Auto) 47.4 H, [place] % (Auto) 8.9, Eos % (Auto) 1.6, Baso % (Auto) 0.4, Absolute Neuts (auto) 2.0, Absolute Lymphs (auto) 2.30, Nucleated RBC % 0, Sodium 138, Potassium 3.5, Chloride 102, Carbon Dioxide 33.0 H, Anion Gap 3 L, BUN 14, Creatinine 0.72, Estim Creat Clear Calc 139.23, Est GFR (MDRD) Af Amer 144, Est GFR (MDRD) Non-Af 119, BUN/Creatinine Ratio 19.3, Glucose 101, Calcium 9.0, Total Bilirubin 0.60, AST 51 H, ALT 56, Alkaline Phosphatase 84, Total Protein 6.0 L, Albumin 3.4, Globulin 2.6, Albumin/Globulin Ratio 1.3 03/13/24 05:43: POC Glucose 102 Micro: Microbiology 03/10/24 13:15 Tissue - Hand Gram Stain - Final 03/10/24 13:15 Tissue - Hand Wound Culture - Preliminary No growth-Final to follow 03/10/24 13:15 Tissue - Hand Anaerobic Culture - Preliminary No growth in 48 hours. 03/10/24 13:15 Wound Abcess - Right Hand Gram Stain - Final 03/10/24 13:15 Wound Abcess - Right Hand Wound Culture - Preliminary Staphylococcus aureus 03/10/24 13:15 Wound Abcess - Right Hand Anaerobic Culture - Preliminary No growth in 48 hours. 03/06/24 21:00 Wound Drainage - Aerobic & Anaerobic Swabs Gram Stain - Final 03/06/24 21:00 Wound Drainage - Aerobic & Anaerobic Swabs Wound Culture - Final Staphylococcus aureus 03/06/24 21:00 Wound Drainage - Aerobic & Anaerobic Swabs Anaerobic Culture - Final No anaerobic bacteria isolated. 03/06/24 21:00 Tissue - Hand Gram Stain - Final 03/06/24 21:00 Tissue - Hand Wound Culture - Final Staphylococcus aureus 03/06/24 21:00 Tissue - Hand Anaerobic Culture - Final No anaerobic bacteria isolated. Physical Exam Const alert and no apparent distress HEENT head/scalp atraumatic and moist oral mucous membranes Resp normal respiratory effort and no retractions Extremity Extremity Narrative: Tenderness to palpation of the right knee but no warmth. No noted effusion. Assessment & Plan Assessment/Plan (1) Flexor tenosynovitis of finger: PLAN: Plan Flexor tenosynovitis of right middle finger secondary to Staph aureus * Surgeries: * Patient went to the OR 03/06 with washout. * Worsening condition and went back to OR on 03/10: where there was puss over the tendon and purulence in right long finger PIP. * 03/11: I+D right long finger flexor tendon sheath. Right long finger PIP arthrotomy and wash out for septic joint. No purulence noted. * Cultures positive for MSSA on 03/06. Positive for S. aureus on the , (presumably MSSA) * Abx with cefazolin. ID following. * Per plastics: no additional surgery at this time. TID Dial soap soaks and packing of the wounds. Plastics to follow. Right knee effusion * atraumatic. has had issues in the past. May be due to arthritis * Ice PRN. * Has used cortisone injections in the past. I would hold off on steroids Chronic conditions: * COPD: Continue home inhalers. Patient noted to be 86% on room air but saturating well on 2 L not been resumed on inhalers yet, suspect this is the culprit will monitor closely, denied any respiratory symptoms. 03/08: Now 94% on room air, respiratory status significantly improved after resumption of inhalers. 03/09: Patient denies having any shortness of breath. Had an 88% on room air yesterday evening. Continue Lasix, continue nebs and inhaled budesonide. Incentive spirometer ordered * type 2 diabetes mellitus: Glucose checks and sliding scale insulin. 03/08: Glucose 94 this a.m., patient presently n.p.o., may need further adjustment once patient persistently taking n.p.o., continue sliding scale insulin. 03/09: Glucose remains fairly well-controlled for inpatient setting. Continue sliding scale at this time and adjust as needed * CANDELARIA. Resume home NIPPV. 03/08: Patient did use NIPPV last night and did well with this * History of CVA/CAD s/o stenting-Continue aspirin, statin, Plavix * Tobacco use-Advise cessation-Nicotine replacement available if desired * GERD-Continue PPI * Hypothyroidism-Continue Synthroid * Depression-Continue Cymbalta-Continue mirtazapine VTE prophylaxis: LMWH Charges/Coding Visit Charges Inpatient E&M: 68113 Subs Hosp L1
[2024-03-13] MEDS: Ipratropium/Albuterol Sulfate 3 ML AMPUL.NEB INHALATION ×2 (07:14→19:07)
[2024-03-13] MEDS: Budesonide Respules 0.5 MG/2 ML AMPUL.NEB. INHALATION ×2 (07:14→19:07)
[2024-03-13 07:37] VITALS: PULSE 71; RESP 19; O2SAT 95
--- NOTE | 2024-03-13 07:53 | PN.SURG_ITS ---
Subjective Subjective Reports improvements since yesterday, less pain better ROM. Doing a Dial soap soak this morning. No numbness or tingling on his fingers. Objective Data Objective Data Vital Signs: Vital Signs Temp Pulse Resp BP Pulse Ox O2 Del Method O2 Flow Rate 97.9 F 71 19 H 132/74 H 95 Nasal Cannula 2 03/13/24 02:52 03/13/24 07:37 03/13/24 07:37 03/13/24 02:52 03/13/24 07:37 03/13/24 07:37 03/13/24 07:37 Oxygen Flow Rate (L/min) 2 Oxygen Delivery Method Nasal Cannula Weight: 253 lb 1.451 oz Body Mass Index (BMI) 37.5 Intake & Output: Intake and Output for Last 24 Hours 03/11/24 03/12/24 03/13/24 23:59 23:59 23:59 Intake Total 1006.00 / 1206.00 2490 / 2490 410 / 410 Output Total 0 / 0 Balance 1006.00 / 1206.00 2490 / 2490 410 / 410 Lab / Micro Data 03/13/24 05:09 03/13/24 05:09 Labs: Laboratory Results - last 24 hr 03/12/24 11:10: POC Glucose 133 H 03/12/24 16:10: POC Glucose 114 H 03/12/24 21:27: POC Glucose 146 H 03/13/24 05:09: WBC 4.9, RBC 4.38 L, Hgb 14.9, Hct 44.1, MCV 100.7 H, MCH 34.0 H , MCHC 33.8, RDW Std Deviation 45.7 H, RDW Coeff of Autumn 12.2, Plt Count 100 L, MPV 11.3, Immature Gran % (Auto) 0.200, Neut % (Auto) 41.5 L, Lymph % (Auto) 47.4 H, [place] % (Auto) 8.9, Eos % (Auto) 1.6, Baso % (Auto) 0.4, Absolute Neuts (auto) 2.0, Absolute Lymphs (auto) 2.30, Nucleated RBC % 0, Sodium 138, Potassium 3.5, Chloride 102, Carbon Dioxide 33.0 H, Anion Gap 3 L, BUN 14, Creatinine 0.72, Estim Creat Clear Calc 139.23, Est GFR (MDRD) Af Amer 144, Est GFR (MDRD) Non-Af 119, BUN/Creatinine Ratio 19.3, Glucose 101, Calcium 9.0, Total Bilirubin 0.60, AST 51 H, ALT 56, Alkaline Phosphatase 84, Total Protein 6.0 L, Albumin 3.4, Globulin 2.6, Albumin/Globulin Ratio 1.3 03/13/24 05:43: POC Glucose 102 Micro: Microbiology 03/10/24 13:15 Tissue - Hand Gram Stain - Final 03/10/24 13:15 Tissue - Hand Wound Culture - Preliminary No growth-Final to follow 03/10/24 13:15 Tissue - Hand Anaerobic Culture - Preliminary No growth in 48 hours. 03/10/24 13:15 Wound Abcess - Right Hand Gram Stain - Final 03/10/24 13:15 Wound Abcess - Right Hand Wound Culture - Preliminary Staphylococcus aureus 03/10/24 13:15 Wound Abcess - Right Hand Anaerobic Culture - Preliminary No growth in 48 hours. 03/06/24 21:00 Wound Drainage - Aerobic & Anaerobic Swabs Gram Stain - Final 03/06/24 21:00 Wound Drainage - Aerobic & Anaerobic Swabs Wound Culture - Final Staphylococcus aureus 03/06/24 21:00 Wound Drainage - Aerobic & Anaerobic Swabs Anaerobic Culture - Final No anaerobic bacteria isolated. 03/06/24 21:00 Tissue - Hand Gram Stain - Final 03/06/24 21:00 Tissue - Hand Wound Culture - Final Staphylococcus aureus 03/06/24 21:00 Tissue - Hand Anaerobic Culture - Final No anaerobic bacteria isolated. Physical Exam Narrative RUE Seen and examined. Just did a soak. No purulence from the incisions today. No streaking erythema/lymphadenopathy. Less pain with axial loading of the right long finger. [place] drain in place in the palm Motor: Able to bend MP, PIP, and DIP joints of the right long finger, but limited 2/2 swelling. Able to fire thenar eminence muscles and oppose thumb to small finger. Sensation: Intact to light touch on the radial and ulnar borders of the right long finger. Vascular: <2 second capillary refill on the right long finger. Const alert and oriented x3 General Appearance: cooperative Eyes EOMs intact bilaterally Neck full ROM Resp normal respiratory effort Auscultation: rhonchi Cardio regular rate Extremity Extremity Narrative: No swelling in the lower extremities/calves SCDs on and activated Assessment & Plan Assessment/Plan (1) Flexor tenosynovitis of finger: PLAN: Improved exam today No further surgical interventions planned at this time. VSS. Normal WBC. Continue TID Dial soap soaks and packing of the wounds. F/u cultures from , 10 Mar 2024. Thus far + Staphylococcus joanus elvin kelly. Appreciate ID following for MSSA infection (Cefazolin) Continue tight blood glucose control (low 100s over past 24 hours) Continue incentive spirometry (discussed with nursing) Continue ambulation with nursing assistance (discussed). O.K. to continue Plavix and Pxx. Lovenox from surgery standpoint [facility] will continue to follow and see tomorrow morning Charges/Coding Procedures Integumentary [id number]: [id number] Global Visit
[2024-03-13 09:56] VITALS: BP 113/67; PULSE 52; RESP 16; TEMP 36.5; O2SAT 97
[2024-03-13] MEDS: oxyCODONE 5 MG Tablet 10 MG PO ×3 (10:05→21:05)
[2024-03-13] MEDS: Furosemide 20 MG Tablet 60 MG PO (10:06)
[2024-03-13] MEDS: Pantoprazole Sodium 40 MG Tablet PO (10:06)
[2024-03-13] MEDS: Clopidogrel Bisulfate 75 MG Tablet PO (10:07)
[2024-03-13] MEDS: Enoxaparin 40 MG/0.4 ML Syringe SC (10:07)
[2024-03-13] MEDS: Arthritis Pain Compound 60 CLICK TUBE TOPICAL ×2 (10:07→21:06)
[2024-03-13] MEDS: Aspirin E.C. 81 MG Tablet PO (10:07)
[2024-03-13] MEDS: DULoxetine Hcl 60 MG Capsule PO (10:07)
[2024-03-13] MEDS: Insulin Lispro 100 UNIT/ML INSULN.PEN SC ×2 (11:40→21:14)
[2024-03-13 12:01] LABS: Bedside Glucose 154 mg/dL (74-106)
[2024-03-13 15:50] VITALS: BP 153/92; PULSE 68; RESP 16; TEMP 36.7; O2SAT 98
[2024-03-13 16:32] LABS: Bedside Glucose 148 mg/dL (74-106)
[2024-03-13 19:08] VITALS: PULSE 68; RESP 16
[2024-03-13 20:59] VITALS: BP 127/77; PULSE 63; RESP 16; TEMP 36.7; O2SAT 97
[2024-03-13] MEDS: Mirtazapine 15 MG Tablet 45 MG PO (21:06)
[2024-03-13] MEDS: Atorvastatin Calcium 40 MG Tablet PO (21:07)
[2024-03-13 21:41] LABS: Bedside Glucose 160 mg/dL (74-106)
[2024-03-14] VITALS (8 sets, daily range): BP systolic 115–135; BP diastolic 64–76; PULSE 59–74; RESP 16–20; TEMP 36.3–36.9; O2SAT 93–96
[2024-03-14] MEDS: oxyCODONE 5 MG Tablet 10 MG PO ×3 (05:09→21:33)
[2024-03-14] MEDS: Cefazolin 2 GM in 0.9% Normal Saline (100mL Bag) 100 ML IV ×3 (05:09→21:35)
[2024-03-14] MEDS: Levothyroxine 75 MCG Tablet PO (05:09)
[2024-03-14] MEDS: Acetaminophen 500 MG Tablet 1000 MG PO ×3 (05:09→21:34)
[2024-03-14] MEDS: Gabapentin 800 MG Tablet PO ×3 (05:11→21:34)
[2024-03-14] MEDS: Insulin Lispro 100 UNIT/ML INSULN.PEN SC ×3 (05:18→21:39)
[2024-03-14 06:11] LABS: Absolute Neutrophil Count 2.5 X10^3/uL (2.0-7.7); Basophil# 0.01 X10^3/uL; Basophil% 0.2 % (0-1); Eosinophil# 0.08 X10^3/uL; Eosinophils% 1.6 % (0-5); Hematocrit 45.9 % (40-54); Lymphocyte % 41.7 % (19-41); Mean Corp Hgb Conc 34.9 g/dL (32-36); Mean Corpuscular Hgb 34.3 pg (27.0-32.0); Mean Corpuscular Volume 98.3 fL (80-94); Mean Platelet Vol. 11.6 fl (6.2-12.0); Monocyte# 0.37 X10^3/uL; Monocyte% 7.4 % (0-10); NRBC Flagged by Analyzer 0 % (0-5); Neutrophil # 2.45 X10^3/uL (2.7-7.7); Neutrophil % 48.7 % (47-70); Platelet Count 110 K/mm3 (150-450); RBC Distribution Width CV 12.1 % (11.6-14.6); RBC Distribution Width SD 44.1 fl (35.1-43.9); Red Blood Count 4.67 M/mm3 (4.6-6.2)
[2024-03-14 06:19] LABS: Bedside Glucose 168 mg/dL (74-106)
[2024-03-14 06:37] LABS: ALB/GLOB Ratio 1.4 RATIO (0.9-2.4); AST(SGOT) 46 U/L (15-37); Alanine Aminotransfer ALT/SGPT 53 U/L (16-61); Albumin, Serum 3.6 g/dL (3.2-5.0); Alkaline Phosphatase 92 U/L (45-117); Anion Gap 5 (5-15); BUN 14 mg/dL (7-18); BUN/Creat Ratio 17.8 RATIO (10-20); Calcium,Total 9.3 mg/dL (8.5-10.1); Chloride 102 mmol/L (98-107); Creatinine, Serum 0.79 mg/dL (0.70-1.30); EST Glomerular Filtration Rate 108 mL/min (>60); Est Glom Filt Rate - Afr Amer 130 mL/min (>60); Estimated Creatinine Clearance 126.89 ml/min; Globulin 2.5 g/dL (2.2-4.2); Glucose 149 mg/dL (74-106); Potassium 3.4 mmol/L (3.5-5.1); Protein, Total 6.1 g/dL (6.4-8.2); Sodium Level 138 mmol/L (136-145)
[2024-03-14] MEDS: Ipratropium/Albuterol Sulfate 3 ML AMPUL.NEB INHALATION ×3 (06:47→19:33)
[2024-03-14] MEDS: Budesonide Respules 0.5 MG/2 ML AMPUL.NEB. INHALATION ×2 (06:47→19:33)
[2024-03-14] MEDS: Juven (unflavored) Packet 1 PACKET PO (08:28)
[2024-03-14] MEDS: Enoxaparin 40 MG/0.4 ML Syringe SC (08:28)
[2024-03-14] MEDS: Clopidogrel Bisulfate 75 MG Tablet PO (08:28)
[2024-03-14] MEDS: Pantoprazole Sodium 40 MG Tablet PO (08:29)
[2024-03-14] MEDS: DULoxetine Hcl 60 MG Capsule PO (08:29)
[2024-03-14] MEDS: Furosemide 20 MG Tablet 60 MG PO (08:29)
[2024-03-14] MEDS: Aspirin E.C. 81 MG Tablet PO (08:29)
[2024-03-14] MEDS: Arthritis Pain Compound 60 CLICK TUBE TOPICAL ×2 (08:29→21:33)
--- NOTE | 2024-03-14 08:44 | PN.SURG_ITS ---
Subjective Subjective Reports that pain has improved. Feels like he's moving his hand better. Objective Data Objective Data Vital Signs: Vital Signs Temp Pulse Resp BP Pulse Ox O2 Del Method O2 Flow Rate 98.0 F 59 L 16 131/76 H 94 Room Air 2 03/14/24 05:00 03/14/24 05:00 03/14/24 05:00 03/14/24 05:00 03/14/24 06:52 03/14/24 08:35 03/14/24 06:52 Oxygen Flow Rate (L/min) 2 Oxygen Delivery Method Room Air Weight: 253 lb 1.451 oz Body Mass Index (BMI) 37.5 Intake & Output: Intake and Output for Last 24 Hours 03/12/24 03/13/24 03/14/24 23:59 23:59 23:59 Intake Total 2490 / 2490 1230 / 1530 1010 / 1010 Balance 2490 / 2490 1230 / 1530 1010 / 1010 Lab / Micro Data 03/14/24 05:03 03/14/24 05:03 Labs: Laboratory Results - last 24 hr 03/13/24 11:38: POC Glucose 154 H 03/13/24 16:12: POC Glucose 148 H 03/13/24 21:13: POC Glucose 160 H 03/14/24 05:03: WBC 5.0, RBC 4.67, Hgb 16.0, Hct 45.9, MCV 98.3 H, MCH 34.3 H, MCHC 34.9, RDW Std Deviation 44.1 H, RDW Coeff of Autumn 12.1, Plt Count 110 L, MPV 11.6, Immature Gran % (Auto) 0.400, Neut % (Auto) 48.7, Lymph % (Auto) 41.7 H, [place] % (Auto) 7.4, Eos % (Auto) 1.6, Baso % (Auto) 0.2, Absolute Neuts (auto) 2.5, Absolute Lymphs (auto) 2.10, Nucleated RBC % 0, Sodium 138, Potassium 3.4 L , Chloride 102, Carbon Dioxide 31.0, Anion Gap 5, BUN 14, Creatinine 0.79, Estim Creat Clear Calc 126.89, Est GFR (MDRD) Af Amer 130, Est GFR (MDRD) Non-Af 108, BUN/Creatinine Ratio 17.8, Glucose 149 H, Calcium 9.3, Total Bilirubin 0.40, AST 46 H, ALT 53, Alkaline Phosphatase 92, Total Protein 6.1 L, Albumin 3.6, Globulin 2.5, Albumin/Globulin Ratio 1.4 03/14/24 05:17: POC Glucose 168 H Micro: Microbiology 03/10/24 13:15 Tissue - Hand Gram Stain - Final 03/10/24 13:15 Tissue - Hand Wound Culture - Preliminary Staphylococcus aureus 03/10/24 13:15 Tissue - Hand Anaerobic Culture - Preliminary No growth in 48 hours. 03/10/24 13:15 Wound Abcess - Right Hand Gram Stain - Final 03/10/24 13:15 Wound Abcess - Right Hand Wound Culture - Preliminary Staphylococcus aureus 03/10/24 13:15 Wound Abcess - Right Hand Anaerobic Culture - Preliminary No growth in 48 hours. 03/06/24 21:00 Wound Drainage - Aerobic & Anaerobic Swabs Gram Stain - Final 03/06/24 21:00 Wound Drainage - Aerobic & Anaerobic Swabs Wound Culture - Final Staphylococcus aureus 03/06/24 21:00 Wound Drainage - Aerobic & Anaerobic Swabs Anaerobic Culture - Final No anaerobic bacteria isolated. 03/06/24 21:00 Tissue - Hand Gram Stain - Final 03/06/24 21:00 Tissue - Hand Wound Culture - Final Staphylococcus aureus 03/06/24 21:00 Tissue - Hand Anaerobic Culture - Final No anaerobic bacteria isolated. Physical Exam Narrative RUE Seen and examined.No purulence from the incisions today. No areas of fluctuance. No streaking erythema/lymphadenopathy. Less pain with axial loading of the right long finger. [place] drain in place in the palm (removed today) Motor: Able to bend MP, PIP, and DIP joints of the right long finger, but limited 2/2 swelling. Able to fire thenar eminence muscles and oppose thumb to small finger. Sensation: Intact to light touch on the radial and ulnar borders of the right long finger. Vascular: <2 second capillary refill on the right long finger. Const alert and oriented x3 General Appearance: cooperative Eyes EOMs intact bilaterally Neck full ROM Resp normal respiratory effort Auscultation: rhonchi Cardio regular rate Extremity Extremity Narrative: No swelling in the lower extremities/calves SCDs on and activated Assessment & Plan Assessment/Plan (1) Flexor tenosynovitis of finger: PLAN: Continues to improve. No further surgical interventions planned at this time. VSS. Normal WBC. Continue TID Dial soap soaks and packing of the wounds. F/u cultures from , 10 Mar 2024. Thus far + Staphylococcus marilee kelly. Appreciate ID following for MSSA infection (Cefazolin). Possible discharge tomorrow if continues to improve. Continue tight blood glucose control (low 100s over past 24 hours) Continue incentive spirometry (discussed with nursing) Continue ambulation with nursing assistance (discussed). O.K. to continue Plavix and Pxx. Lovenox from surgery standpoint [facility] will continue to follow and see tomorrow morning Charges/Coding Procedures Integumentary [id number]: [id number] Global Visit
[2024-03-14 11:51] LABS: Bedside Glucose 163 mg/dL (74-106)
--- NOTE | 2024-03-14 12:48 | CASEMGMT ---
Spoke with ID regarding pt atb at [place]. [facility] CM into pt room, pt sitting on edge of bed. Pt denies any need for HHC for wound monitoring or assistance in wound care. Pt again states he has done in the past and denies need for HHC. Pt denies any homegoing needs.
--- NOTE | 2024-03-14 13:25 | PCM.PN.ID ---
Physical Exam Narrative Feeling better, hand improved, no fever, no n/v/d. Const alert and no apparent distress General Appearance: cooperative Resp normal air movement and clear to auscultation bilaterally Cardio regular rate and regular rhythm GI soft to palpation, non-tender and non-distended Skin Skin Narrative: reviewed wound photos ID ID: Route of nutrition/ use of supplements: [] Nutritional Intake: [] IV Site: [] Barr Catheter: [] Assessment & Plan Assessment/Plan (1) Type II diabetes mellitus: QUALIFIERS: Diabetes mellitus rodent exterminator insulin use: with rodent exterminator use Diabetes mellitus complication status: with neurologic complications Diabetes mellitus complication detail: with polyneuropathy Qualified Code(s): E11.42 - Type 2 diabetes mellitus with diabetic polyneuropathy; Z79.4 - terminal manager (current) use of insulin (2) Flexor tenosynovitis of finger: PLAN: Taken to OR 03/06/[address] Edwards for I&D of R middle finger. He is L handed. Surg cx with MSSA. Will cont cefazolin. Much improved now. Plan on po abx at discharge. Will follow
[2024-03-14 17:08] LABS: Bedside Glucose 142 mg/dL (74-106)
--- NOTE | 2024-03-14 17:40 | PCM.PN.HOSP ---
Reason for Visit Reason for Visit: Diagnoses Type 2 diabetes mellitus with diabetic polyneuropathy (03/06/24) Morbid (severe) obesity due to excess calories (03/06/24) Essential (primary) hypertension (03/06/24) Unspecified synovitis and tenosynovitis, unspecified hand (03/06/24) detention (current) use of insulin (03/06/24) Subjective Subjective Patient was seen and examined today, reviewed notes from plastic surgery and infectious diseases, it appears that the patient will be placed on oral antibiotics when he is discharged home. Objective Data Objective Data Vital Signs: Vital Signs Temp Pulse Resp BP Pulse Ox O2 Del Method O2 Flow Rate 97.4 F L 64 18 116/64 94 Room Air 2 03/14/24 15:00 03/14/24 15:00 03/14/24 15:00 03/14/24 15:00 03/14/24 15:00 03/14/24 15:00 03/14/24 06:52 Oxygen Flow Rate (L/min) 2 Oxygen Delivery Method Room Air Weight: 114.8 kg Body Mass Index (BMI) 37.5 Intake & Output: Intake and Output for Last 24 Hours 03/12/24 03/13/24 03/14/24 23:59 23:59 23:59 Intake Total 2490 / 2490 1230 / 1530 1120 / 1120 Balance 2490 / 2490 1230 / 1530 1120 / 1120 Lab / Micro Data 03/14/24 05:03 03/14/24 05:03 Labs: Laboratory Results - last 24 hr 03/13/24 21:13: POC Glucose 160 H 03/14/24 05:03: WBC 5.0, RBC 4.67, Hgb 16.0, Hct 45.9, MCV 98.3 H, MCH 34.3 H, MCHC 34.9, RDW Std Deviation 44.1 H, RDW Coeff of Autumn 12.1, Plt Count 110 L, MPV 11.6, Immature Gran % (Auto) 0.400, Neut % (Auto) 48.7, Lymph % (Auto) 41.7 H, [place] % (Auto) 7.4, Eos % (Auto) 1.6, Baso % (Auto) 0.2, Absolute Neuts (auto) 2.5, Absolute Lymphs (auto) 2.10, Nucleated RBC % 0, Sodium 138, Potassium 3.4 L, Chloride 102, Carbon Dioxide 31.0, Anion Gap 5, BUN 14, Creatinine 0.79, Estim Creat Clear Calc 126.89, Est GFR (MDRD) Af Amer 130, Est GFR (MDRD) Non-Af 108, BUN/Creatinine Ratio 17.8, Glucose 149 H, Calcium 9.3, Total Bilirubin 0.40, AST 46 H, ALT 53, Alkaline Phosphatase 92, Total Protein 6.1 L, Albumin 3.6, Globulin 2.5, Albumin/Globulin Ratio 1.4 03/14/24 05:17: POC Glucose 168 H 03/14/24 11:26: POC Glucose 163 H 03/14/24 16:47: POC Glucose 142 H Micro: Microbiology 03/10/24 13:15 Wound Abcess - Right Hand Gram Stain - Final 03/10/24 13:15 Wound Abcess - Right Hand Wound Culture - Final Staphylococcus aureus 03/10/24 13:15 Wound Abcess - Right Hand Anaerobic Culture - Preliminary No growth in 48 hours. 03/10/24 13:15 Tissue - Hand Gram Stain - Final 03/10/24 13:15 Tissue - Hand Wound Culture - Final Staphylococcus aureus 03/10/24 13:15 Tissue - Hand Anaerobic Culture - Preliminary No growth in 48 hours. 03/06/24 21:00 Wound Drainage - Aerobic & Anaerobic Swabs Gram Stain - Final 03/06/24 21:00 Wound Drainage - Aerobic & Anaerobic Swabs Wound Culture - Final Staphylococcus aureus 03/06/24 21:00 Wound Drainage - Aerobic & Anaerobic Swabs Anaerobic Culture - Final No anaerobic bacteria isolated. 03/06/24 21:00 Tissue - Hand Gram Stain - Final 03/06/24 21:00 Tissue - Hand Wound Culture - Final Staphylococcus aureus 03/06/24 21:00 Tissue - Hand Anaerobic Culture - Final No anaerobic bacteria isolated. Physical Exam Const alert, oriented x3, no apparent distress and healthy appearing General Appearance: cooperative, well kempt and well developed Orientation / Consciousness: awake, oriented to person, oriented to place and oriented to time HEENT normocephalic and moist oral mucous membranes Eyes PERRL, EOMs intact bilaterally and conjunctivae normal Neck supple, no JVD, thyroid normal and no carotid bruits General: trachea midline Resp normal respiratory effort and clear to auscultation bilaterally Auscultation: Negative for rales, rhonchi or wheezes Cardio regular rate, regular rhythm, S1 normal heart sound, S2 normal heart sound, no murmurs, no rub and no gallops GI normal to inspection, nondistended, normoactive bowel sounds, soft to palpation, non-tender and non-distended Extremity Extremity Narrative: Patient's right hand is wrapped with surgical dressing and Zachery wrap this was not removed for examination of the area Neuro oriented x3, CN's II-XII intact bilaterally, no focal motor deficits and no sensory deficits noted Sensorium / Orientation: awake and alert Speech: speech normal Psych affect normal Assessment & Plan Assessment/Plan (1) Flexor tenosynovitis of finger: PLAN: Plan 1. Right hand infection involving the right long finger-continue antibiotic coverage per infectious diseases #2 type 2 diabetes-continue to monitor blood sugars, sliding scale insulin will be used as needed #3 hyperlipidemia-patient remains on a statin at this time #4 essential hypertension-patient will remain on his current medications #5 coronary artery disease-patient will remain on some medications Total clinical time spent by myself addressing patient's medical issues, reviewing all of his data, and collaborating with patient's care team: 35 minutes Charges/Coding Visit Charges Inpatient E&M: 71947 Subs Hosp L2
[2024-03-14] MEDS: Atorvastatin Calcium 40 MG Tablet PO (21:34)
[2024-03-14] MEDS: Mirtazapine 15 MG Tablet 45 MG PO (21:35)
[2024-03-14 22:06] LABS: Bedside Glucose 171 mg/dL (74-106)
[2024-03-15] MEDS: Cefazolin 2 GM in 0.9% Normal Saline (100mL Bag) 100 ML IV (06:00)
[2024-03-15] MEDS: Acetaminophen 500 MG Tablet 1000 MG PO ×2 (06:01→14:08)
[2024-03-15] MEDS: Levothyroxine 75 MCG Tablet PO (06:01)
[2024-03-15] MEDS: Gabapentin 800 MG Tablet PO ×2 (06:03→14:08)
[2024-03-15] MEDS: oxyCODONE 5 MG Tablet 10 MG PO (06:04)
[2024-03-15 06:16] VITALS: BP 126/81; PULSE 68; RESP 16; TEMP 36.7; O2SAT 96
[2024-03-15 06:32] LABS: Bedside Glucose 123 mg/dL (74-106)
[2024-03-15] MEDS: Budesonide Respules 0.5 MG/2 ML AMPUL.NEB. INHALATION (07:02)
[2024-03-15] MEDS: Ipratropium/Albuterol Sulfate 3 ML AMPUL.NEB INHALATION (07:02)
[2024-03-15 07:04] VITALS: PULSE 79; RESP 18; O2SAT 94
[2024-03-15] MEDS: Arthritis Pain Compound 60 CLICK TUBE TOPICAL (07:44)
[2024-03-15] MEDS: Enoxaparin 40 MG/0.4 ML Syringe SC (07:45)
[2024-03-15] MEDS: Pantoprazole Sodium 40 MG Tablet PO (07:46)
[2024-03-15] MEDS: Aspirin E.C. 81 MG Tablet PO (07:46)
[2024-03-15] MEDS: DULoxetine Hcl 60 MG Capsule PO (07:46)
[2024-03-15] MEDS: Furosemide 20 MG Tablet 60 MG PO (07:46)
[2024-03-15] MEDS: Clopidogrel Bisulfate 75 MG Tablet PO (07:46)
[2024-03-15 08:57] VITALS: BP 135/71; PULSE 62; RESP 16; TEMP 36.6; O2SAT 94
--- NOTE | 2024-03-15 10:32 | PN.ID_ITS ---
Physical Exam Narrative Feeling ok, wants to go home, no fever Const alert and no apparent distress General Appearance: cooperative Resp normal air movement and clear to auscultation bilaterally Cardio regular rate and regular rhythm GI soft to palpation, non-tender and non-distended Skin Skin Narrative: hand wrapped ID ID: Route of nutrition/ use of supplements: [] Nutritional Intake: [] IV Site: [] Barr Catheter: [] Assessment & Plan Assessment/Plan (1) Type II diabetes mellitus: QUALIFIERS: Diabetes mellitus penitentiary insulin use: with intermediate project manager use Diabetes mellitus complication status: with neurologic complications Diabetes mellitus complication detail: with polyneuropathy Qualified Code(s): E11.42 - Type 2 diabetes mellitus with diabetic polyneuropathy; Z79.4 - intermediate project manager (current) use of insulin (2) Flexor tenosynovitis of finger: PLAN: Taken to OR 03/06/[address] Edwards for I&D of R middle finger. He is L handed. Surg cx with MSSA. On cefazolin. Much improved now. Wrote for 3 weeks po kayla at discharge. Will follow
[2024-03-15 11:20] LABS: Bedside Glucose 145 mg/dL (74-106)
[2024-03-15 11:23] VITALS: BP 129/76; PULSE 69; RESP 16; TEMP 36.8; O2SAT 94
--- NOTE | 2024-03-15 13:01 | PCM.PN.SRG ---
Subjective Subjective Patient states he is doing well. He states he is going home today. He feels he is able to do his own dressing changes at home. Objective Data Objective Data Vital Signs: Vital Signs Temp Pulse Resp BP Pulse Ox O2 Del Method O2 Flow Rate 98.3 F 69 16 129/76 H 94 Room Air 2 03/15/24 11:23 03/15/24 11:23 03/15/24 11:23 03/15/24 11:23 03/15/24 11:23 03/15/24 11:23 03/14/24 06:52 Oxygen Flow Rate (L/min) 2 Oxygen Delivery Method Room Air Weight: 253 lb 1.451 oz Body Mass Index (BMI) 37.5 Intake & Output: Intake and Output for Last 24 Hours 03/13/24 03/14/24 03/15/24 23:59 23:59 23:59 Intake Total 1230 / 1530 1530 / 1530 910 / 910 Balance 1230 / 1530 1530 / 1530 910 / 910 Lab / Micro Data Attestation: I reviewed the patient's lab results. 03/14/24 05:03 03/14/24 05:03 Labs: Laboratory Results - last 24 hr 03/14/24 16:47: POC Glucose 142 H 03/14/24 21:38: POC Glucose 171 H 03/15/24 06:12: POC Glucose 123 H 03/15/24 10:59: POC Glucose 145 H Micro: Microbiology 03/10/24 13:15 Tissue - Hand Gram Stain - Final 03/10/24 13:15 Tissue - Hand Wound Culture - Final Staphylococcus aureus 03/10/24 13:15 Tissue - Hand Anaerobic Culture - Final No growth in 5 days. 03/10/24 13:15 Wound Abcess - Right Hand Gram Stain - Final 03/10/24 13:15 Wound Abcess - Right Hand Wound Culture - Final Staphylococcus aureus 03/10/24 13:15 Wound Abcess - Right Hand Anaerobic Culture - Final No growth in 5 days. 03/06/24 21:00 Wound Drainage - Aerobic & Anaerobic Swabs Gram Stain - Final 03/06/24 21:00 Wound Drainage - Aerobic & Anaerobic Swabs Wound Culture - Final Staphylococcus aureus 03/06/24 21:00 Wound Drainage - Aerobic & Anaerobic Swabs Anaerobic Culture - Final No anaerobic bacteria isolated. 03/06/24 21:00 Tissue - Hand Gram Stain - Final 03/06/24 21:00 Tissue - Hand Wound Culture - Final Staphylococcus aureus 03/06/24 21:00 Tissue - Hand Anaerobic Culture - Final No anaerobic bacteria isolated. Physical Exam Narrative Removed dressing to examine hand and incisions. No purulence visualized. No erythema, streaking, fluctuance noted. Able to bed right long finger MP, PIP, DIP joints. Still has swelling of right hand and right long finger. Capillary refill < 2 seconds of right long finger. Right radial pulse +2. Patient assisted with placing dressing back in place. Const alert and oriented x3 General Appearance: cooperative HEENT normocephalic Eyes General Eye: normal appearance of both eyes Resp normal respiratory effort Effort and Inspection: able to speak in complete sentences Cardio regular rate Assessment & Plan Assessment/Plan (1) Flexor tenosynovitis of finger: PLAN: Plan Continue Warm water/dial soap soaks when he is discharged home. Pack Iodoform gauze into the base of the wounds, cover with gauze/kerlix, top with YVAN wrap. He feels comfortable doing his own dressing care at home. He assisted me with his dressing change. Operative cultures 03/10/24 MSSA. ID is following. He is on Cefazolin. He will be discharged home Doxycycline for 3 weeks. Upon discharge, he is scheduled to follow up with Dr. Edwards at the wound healing center on Thursday03/21/24. Encouraged low carbohydrate diet with high protein intake to help with blood sugar control and wound healing. Charges/Coding Procedures Integumentary [id number]: [id number] Global Visit
--- NOTE | 2024-03-15 13:13 | PCM.DC ---
Discharge Instructions Diet Discharge Diet: 1800 Calorie Control Diet Activity Discharge Activity: Return to Normal Activity Weight Bearing Status: Full weight bearing Follow Up Care Test Results: Test results from this visit will be discussed in further detail at your follow-up appointment, if applicable. Discharge Plan Admission Admit Date/Time: 03/06/24 19:00 Primary Reason for Your Visit: Flexor tenosynovitis of right long finger Attending Provider: Juan J Shipman Primary Care Provider: Viola Gunderson [facility] Consulting Providers: Sergio Edwards; Fabian Kohler; Sergio Levin; Angeles Brewer; Russell Savage Instructions Additional Instructions / Restrictions: Follow up at the wound center on 03/21/24 at 2 pm for appointment Discharge Orders/Prescriptions Prescriptions: New doxycycline hyclate 100 mg capsule 100 mg PO BID 22 Days Qty: 44 0RF oxycodone 5 mg Tablet 10 mg PO Q4H PRN PRN (Reason: Pain Score 6-10) 3 Days Qty: 20 0RF Continued losartan 50 mg tablet 25 mg PO QDAY aspirin 81 mg tablet,delayed release (DR/EC) 81 mg PO DAILY duloxetine 60 mg capsule,delayed release(DR/EC) 60 mg PO DAILY nitroglycerin [Nitrostat] 0.4 mg tablet, sublingual 0.4 mg SUBLINGUAL ONCE PRN (Reason: chest pain) Rx Instructions: as a single dose; administer 5-10 minutes before situation known to precipitate angina attack multivitamin Capsule 1 cap PO DAILY rosuvastatin 20 mg tablet 20 mg PO QHS 30 Days Qty: 30 3RF omeprazole 40 mg capsule,delayed release(DR/EC) 40 mg PO DAILY 30 Days Qty: 30 2RF ergocalciferol (vitamin D2) 50,000 UNIT capsule 50,000 unit PO Q7D albuterol sulfate 6.7 GM HFA aerosol inhaler 6.7 g IH PRN PRN (Reason: Wheezing) levothyroxine 50 mcg tablet 75 mcg PO DAILY mirtazapine 15 mg tablet 45 mg PO QHS fluticasone propionate 1 SPRAY spray,suspension 1 spray NASAL DAILY icosapent ethyl 1 gram capsule 2 g PO BID Patient Comments: TAKE 2 CAPSULES BY MOUTH TWICE DAILY WITH MEALS Trelegy Ellipta 100-62.5-25 mcg blister with device 1 ea inhalation DAILY gabapentin 800 mg tablet 800 mg PO TID Jardiance 25 mg tablet 25 mg PO DAILY Qty: 30 0RF budesonide-formoterol 160-4.5 mcg/actuation HFA aerosol inhaler 2 puff INHALATION BID Qty: 10.2 11RF clopidogrel 75 mg tablet 75 mg PO QDAY Qty: 90 3RF metformin 1,000 mg tablet 1,000 mg PO BID furosemide [Lasix] 40 mg tablet 60 mg PO DAILY isosorbide mononitrate 60 mg tablet extended release 24 hr 30 mg PO BID Qty: 90 3RF gabapentin 400 mg capsule 800 mg PO TID Referrals / Follow Up: Sergio Edwards MD [Med Staff - Active Staff] - See Referral Note (as directed) Viola Gunderson, TNT POWDER WORKER-C [Primary Care Provider] - Disposition Disposition (needs filled in before D/C Order can be placed): Home, Self Care
--- NOTE | 2024-03-15 13:24 | PCM.DC ---
Discharge Instructions Diet Discharge Diet: 1800 Calorie Control Diet Activity Weight Bearing Status: Full weight bearing Lifting Restrictions: No lifting with right hand Keep extremity elevated above heart level: Operative Extremity and Right Arm Dressing / Incision Call your doctor if your incision/area has: Continuous Slow Oozing, Sudden Increased Bleeding, Increased Pain/ Swelling, Increased Redness, Foul Smelling Discharge and Swelling at the incision site Call your doctor if you observe: Fever of 101 or Higher, Coldness, Increased Pain, Inability to have a bowel movement, Shortness of breath, Chest pain, Calf discomfort and Uncontrolled pain Cleanse incision/area with: Soap & Water Additional Dressing/Incision Instructions:: Warm water and Dial soap soaks twice daily for 15 minutes. Pack open areas with iodoform gauze, cover with gauze and kerlix top with YVAN wrap Follow Up Care Please Follow Up With: Sergio Edwards MD When: Thursday03/21/24 at 2 pm at the [facility]. Test Results: Test results from this visit will be discussed in further detail at your follow-up appointment, if applicable. Discharge Plan Admission Admit Date/Time: 03/06/24 19:00 Attending Provider: Juan J Shipman Primary Care Provider: Viola Gunderson [facility] Consulting Providers: Sergio Edwards; Fabian Kohler; Sergio Levin; Angeles Brewer; Russell Savage Discharge Orders/Prescriptions Prescriptions: New doxycycline hyclate 100 mg capsule 100 mg PO BID 22 Days Qty: 44 0RF No Action losartan 50 mg tablet 25 mg PO QDAY aspirin 81 mg tablet,delayed release (DR/EC) 81 mg PO DAILY duloxetine 60 mg capsule,delayed release(DR/EC) 60 mg PO DAILY nitroglycerin [Nitrostat] 0.4 mg tablet, sublingual 0.4 mg SUBLINGUAL ONCE PRN (Reason: chest pain) Rx Instructions: as a single dose; administer 5-10 minutes before situation known to precipitate angina attack multivitamin Capsule 1 cap PO DAILY rosuvastatin 20 mg tablet 20 mg PO QHS 30 Days Qty: 30 3RF omeprazole 40 mg capsule,delayed release(DR/EC) 40 mg PO DAILY 30 Days Qty: 30 2RF ergocalciferol (vitamin D2) 50,000 UNIT capsule 50,000 unit PO Q7D albuterol sulfate 6.7 GM HFA aerosol inhaler 6.7 g IH PRN PRN (Reason: Wheezing) levothyroxine 50 mcg tablet 75 mcg PO DAILY mirtazapine 15 mg tablet 45 mg PO QHS fluticasone propionate 1 SPRAY spray,suspension 1 spray NASAL DAILY icosapent ethyl 1 gram capsule 2 g PO BID Patient Comments: TAKE 2 CAPSULES BY MOUTH TWICE DAILY WITH MEALS Trelegy Ellipta 100-62.5-25 mcg blister with device 1 ea inhalation DAILY gabapentin 800 mg tablet 800 mg PO TID Jardiance 25 mg tablet 25 mg PO DAILY Qty: 30 0RF budesonide-formoterol 160-4.5 mcg/actuation HFA aerosol inhaler 2 puff INHALATION BID Qty: 10.2 11RF clopidogrel 75 mg tablet 75 mg PO QDAY Qty: 90 3RF metformin 1,000 mg tablet 1,000 mg PO BID furosemide [Lasix] 40 mg tablet 60 mg PO DAILY isosorbide mononitrate 60 mg tablet extended release 24 hr 30 mg PO BID Qty: 90 3RF gabapentin 400 mg capsule 800 mg PO TID Referrals / Follow Up: Viola Gunderson, NOUGAT CANDY MAKER HELPER-C [Primary Care Provider] -
--- NOTE | 2024-03-15 13:54 | DS.PCM_ITS ---
Providers Date of Admission: 03/06/24 Date of Discharge: 03/15/24 Primary Care Physician: CARLOTA Kearney, ENVIRONMENTAL HEALTH SAFETY ENGINEER-C Consultations 03/06/24 19:07 Consult: Plastic Surgery Routine Consulting Provider: Sergio Edwards Reason for Consult: flexor tenosynovitis EMERGENT Consult: No MD Notified: Yes Date Notified: 03/06/24 Time Notified: 19:07 Method of Notification: ED Physician Initiated 03/07/24 06:28 Consult: Onc/Wound/outplacement consultant Routine Comment: Reason for Consult:: right hand 03/08/24 09:21 Consult: Infectious Disease Routine Consulting Provider: Sergio Levin Reason for Consult: R middle finger tenosynovitis EMERGENT Consult: No MD Notified: Yes Date Notified: 03/08/24 Time Notified: 09:21 Method of Notification: Text Reason For Visit: HAND Diagnosis Discharge Diagnosis (1) Flexor tenosynovitis of finger: Status: Acute Code(s): M65.949 - Unspecified synovitis and tenosynovitis, unspecified hand Plan 1. Right hand infection involving the right long finger-continue antibiotic coverage per infectious diseases #2 type 2 diabetes-continue to monitor blood sugars, sliding scale insulin will be used as needed #3 hyperlipidemia-patient remains on a statin at this time #4 essential hypertension-patient will remain on his current medications #5 coronary artery disease-patient will remain on some medications Total clinical time spent by myself addressing patient's medical issues, reviewing all of his data, and collaborating with patient's care team: 35 minutes Medications at Discharge Home Medications albuterol sulfate 90 mcg/actuation aerosol inhaler 6.7 g IH PRN PRN Wheezing 12/06/14 ergocalciferol (vitamin D2) 1,250 mcg (50,000 unit) capsule 50,000 unit PO Q7D 12/06/14 fluticasone propionate 50 mcg/actuation nasal spray,suspension 1 spray NASAL DAILY 05/05/16 aspirin 81 mg tablet,delayed release 81 mg PO DAILY 08/11/19 duloxetine 60 mg capsule,delayed release 60 mg PO DAILY 08/11/19 levothyroxine 50 mcg tablet 75 mcg PO DAILY 08/11/19 losartan 50 mg tablet 25 mg PO QDAY 08/11/19 mirtazapine 15 mg tablet 45 mg PO QHS 08/11/19 multivitamin 1 cap PO DAILY 08/11/19 nitroglycerin 0.4 mg sublingual tablet (Nitrostat) 0.4 mg sublingual ONCE PRN chest pain 08/11/19 budesonide-formoterol HFA 160 mcg-4.5 mcg/actuation aerosol inhaler 2 puff inhalation BID #10.2 grams 12/05/19 clopidogrel 75 mg tablet 75 mg PO QDAY #90 tabs 12/29/19 furosemide 40 mg tablet (Lasix) 60 mg PO DAILY 11/15/20 metformin 1,000 mg tablet 1,000 mg PO BID 11/15/20 isosorbide mononitrate 60 mg tablet,extended release 24 hr 30 mg (1/2 x 60 mg) PO BID #90 tabs 12/03/21 gabapentin 400 mg capsule 800 mg PO TID 09/18/22 omeprazole 40 mg capsule,delayed release 40 mg PO DAILY 1 month #30 caps 06/05/23 rosuvastatin 20 mg tablet 20 mg PO QHS 1 month #30 tabs 06/05/23 icosapent ethyl 1 gram capsule 2 g PO BID 06/30/23 empagliflozin 25 mg tablet (Jardiance) 25 mg PO DAILY #30 tabs 11/24/23 fluticasone fur. 100 mcg-umeclid 62.5 mcg-vilant 25 mcg inhalat.powder (Trelegy Ellipta) 1 ea inhalation DAILY copd 03/07/24 gabapentin 800 mg tablet 800 mg PO TID pain 03/07/24 doxycycline hyclate 100 mg capsule 100 mg PO BID 22 days #44 caps 03/15/24 oxycodone 5 mg tablet 10 mg (2 x 5 mg) PO Q4H PRN PRN Pain Score 6-10 3 days #20 tabs 03/15/24 Hospital Course Operations - (Incision and drainage right long finger flexor tendon sheath, right long finger PIP joint arthrotomy and washout for septic joint) Procedures None Summary of Care Provided Minutes Spent on Discharge: 31 Hospital Course: This 58-year-old white male was seen in the emergency room at [facility] with complaints of swelling of the middle finger of the right hand that have been present for approximately 48 hours. Patient's white blood cell count was slightly elevated, hemoglobin was elevated at 17.4, x-rays of the right hand were negative for fracture or dislocation. Patient was felt to have flexor tenosynovitis of his right middle finger, he was given IV antibiotics and he was admitted to [place] [address] and seen by plastic surgery. That same day he underwent incision and drainage of the right long finger with A1 bruce release and incision and drainage of an abscess in the right long finger. Patient was seen in consultation by infectious diseases and his antibiotics were adjusted by infectious diseases. Patient underwent a second surgery several days later, he was seen by PT and OT and there were no major complications during his hospitalization. The culture of the patient's finger grew out methicillin sensitive Staph aureus. On 03/15/2024, patient was seen and examined: On examination he appeared in good health and spirits. Vital signs as documented. Skin warm and dry and without overt rashes. Neck without JVD, neck was supple, trachea midline, thyroid was normal. Lungs clear bilaterally, normal air movement was noted. Heart exam notable for regular rhythm, normal sounds and absence of murmurs, rubs or gallops. Abdomen unremarkable and without evidence of organomegaly, masses, or abdominal aortic enlargement. Bowel sounds are present, abdomen is not distended. Extremities-right hand is bandaged with surgical bandages and Zachery wrap-this was not removed for examination, no cyanosis was noted, no clubbing was noted. Neuro: Cranial nerves II through XII are grossly intact, no focal motor deficits were noted, sensation to light touch and pinprick intact, motor exam 5/5 throughout. Psych: Patient is alert and oriented x3, he does not appear anxious or depressed, he does not appear agitated. Patient was discharged home in stable condition on 03/15/2024. Weight / BMI Weight Weight: 114.8 kg Body Mass Index (BMI) 37.5 ABG / Lab / Microbiology Data 03/14/24 05:03 03/14/24 05:03 Laboratory: Laboratory Results - last 24 hr 03/14/24 16:47: POC Glucose 142 H 03/14/24 21:38: POC Glucose 171 H 03/15/24 06:12: POC Glucose 123 H 03/15/24 10:59: POC Glucose 145 H Microbiology: Microbiology 03/10/24 13:15 Tissue - Hand Gram Stain - Final 03/10/24 13:15 Tissue - Hand Wound Culture - Final Staphylococcus aureus 03/10/24 13:15 Tissue - Hand Anaerobic Culture - Final No growth in 5 days. 03/10/24 13:15 Wound Abcess - Right Hand Gram Stain - Final 03/10/24 13:15 Wound Abcess - Right Hand Wound Culture - Final Staphylococcus aureus 03/10/24 13:15 Wound Abcess - Right Hand Anaerobic Culture - Final No growth in 5 days. 03/06/24 21:00 Wound Drainage - Aerobic & Anaerobic Swabs Gram Stain - Final 03/06/24 21:00 Wound Drainage - Aerobic & Anaerobic Swabs Wound Culture - Final Staphylococcus aureus 03/06/24 21:00 Wound Drainage - Aerobic & Anaerobic Swabs Anaerobic Culture - Final No anaerobic bacteria isolated. 03/06/24 21:00 Tissue - Hand Gram Stain - Final 03/06/24 21:00 Tissue - Hand Wound Culture - Final Staphylococcus aureus 03/06/24 21:00 Tissue - Hand Anaerobic Culture - Final No anaerobic bacteria isolated. D/C Instructions Discharge Diet: 1800 Calorie Control Diet Weight Bearing Status: Full weight bearing Keep extremity elevated above heart level: Operative Extremity and Right Arm Call your doctor if your incision/area has: Continuous Slow Oozing, Sudden Increased Bleeding, Increased Pain/ Swelling, Increased Redness, Foul Smelling Discharge and Swelling at the incision site Call your doctor if you observe: Fever of 101 or Higher, Coldness, Increased Pain, Inability to have a bowel movement, Shortness of breath, Chest pain, Calf discomfort and Uncontrolled pain Cleanse incision/area with: Soap & Water Additional Dressing/Incision Instructions: Warm water and Dial soap soaks twice daily for 15 minutes. Pack open areas with iodoform gauze, cover with gauze and kerlix top with ZACHERY wrap Please Follow Up With: Sergio Edwards MD When: Thursday03/21/24 at 2 pm at the [facility]. Meaningful Use Info Meaningful Use Meaningful Use Diagnoses (Choose all that apply): None applicable Ischemic Stroke Statin Dosing Therapy Reference: STATIN DOSE THERAPY REFERENCE: * Patients > 75 years receive moderate or high dose statin therapy. * Patients 75 years or YOUNGER should receive HIGH intensity statin dose unless contraindicated. You will be required to document reason for non-treatment if statin daily dose does not meet guidelines. HIGH DOSE STATIN THERAPY DAILY Atorvastatin > than or = to 40 mg Rosuvastatin > than or = to 20 mg Amlodipine + Atorvastatin > than or = to 2.5/40 mg Ezetimibe + Simvastatin 10/80 mg Simvastatin 80mg Discharge Plan Admission Admit Date/Time: 03/06/24 19:00 Primary Reason for Your Visit: Flexor tenosynovitis of right long finger Attending Provider: Juan J Shipman Primary Care Provider: Viola Gunderson [facility] Consulting Providers: Sergio Edwards; Fabian Kohler; Sergio Levin; Angeles Brewer; Russell Savage Instructions Additional Instructions / Restrictions: Follow up at the [facility] center on 03/21/24 at 2 pm for appointment Discharge Orders/Prescriptions Prescriptions: New doxycycline hyclate 100 mg capsule 100 mg PO BID 22 Days Qty: 44 0RF oxycodone 5 mg Tablet 10 mg PO Q4H PRN PRN (Reason: Pain Score 6-10) 3 Days Qty: 20 0RF Continued losartan 50 mg tablet 25 mg PO QDAY aspirin 81 mg tablet,delayed release (DR/EC) 81 mg PO DAILY duloxetine 60 mg capsule,delayed release(DR/EC) 60 mg PO DAILY nitroglycerin [Nitrostat] 0.4 mg tablet, sublingual 0.4 mg SUBLINGUAL ONCE PRN (Reason: chest pain) Rx Instructions: as a single dose; administer 5-10 minutes before situation known to precipitate angina attack multivitamin Capsule 1 cap PO DAILY rosuvastatin 20 mg tablet 20 mg PO QHS 30 Days Qty: 30 3RF omeprazole 40 mg capsule,delayed release(DR/EC) 40 mg PO DAILY 30 Days Qty: 30 2RF ergocalciferol (vitamin D2) 50,000 UNIT capsule 50,000 unit PO Q7D albuterol sulfate 6.7 GM HFA aerosol inhaler 6.7 g IH PRN PRN (Reason: Wheezing) levothyroxine 50 mcg tablet 75 mcg PO DAILY mirtazapine 15 mg tablet 45 mg PO QHS fluticasone propionate 1 SPRAY spray,suspension 1 spray NASAL DAILY icosapent ethyl 1 gram capsule 2 g PO BID Patient Comments: TAKE 2 CAPSULES BY MOUTH TWICE DAILY WITH MEALS Trelegy Ellipta 100-62.5-25 mcg blister with device 1 ea inhalation DAILY gabapentin 800 mg tablet 800 mg PO TID Jardiance 25 mg tablet 25 mg PO DAILY Qty: 30 0RF budesonide-formoterol 160-4.5 mcg/actuation HFA aerosol inhaler 2 puff INHALATION BID Qty: 10.2 11RF clopidogrel 75 mg tablet 75 mg PO QDAY Qty: 90 3RF metformin 1,000 mg tablet 1,000 mg PO BID furosemide [Lasix] 40 mg tablet 60 mg PO DAILY isosorbide mononitrate 60 mg tablet extended release 24 hr 30 mg PO BID Qty: 90 3RF gabapentin 400 mg capsule 800 mg PO TID Referrals / Follow Up: Sergio Edwards MD [Med Staff - Active Staff] - 03/21/24 2:00 pm (This appointment is at the [facility] center.) Viola Gunderson, ENVIRONMENTAL HEALTH SAFETY ENGINEER-C [Primary Care Provider] - 03/23/24 9:00 am Disposition Disposition (needs filled in before D/C Order can be placed): Home, Self Care Charges/Coding Visit Charges Inpatient E&M: 36267 Disch Hosp >30min
--- NOTE | 2024-03-15 14:53 | PHA.DC_ITS ---
Pharmacy CT Med Reconciliation Pharmacy Service has performed discharge medication reconciliation for this patient. Attempted to auto club travel counselor, patient was already discharged. Medications reviewed. The patient's discharge medication list was reviewed for discrepancies and discrepancies were resolved. Medications at Discharge Home Medications albuterol sulfate 90 mcg/actuation aerosol inhaler 6.7 g IH PRN PRN Wheezing 12/06/14 ergocalciferol (vitamin D2) 1,250 mcg (50,000 unit) capsule 50,000 unit PO Q7D 12/06/14 fluticasone propionate 50 mcg/actuation nasal spray,suspension 1 spray NASAL DAILY 05/05/16 aspirin 81 mg tablet,delayed release 81 mg PO DAILY 08/11/19 duloxetine 60 mg capsule,delayed release 60 mg PO DAILY 08/11/19 levothyroxine 50 mcg tablet 75 mcg PO DAILY 08/11/19 losartan 50 mg tablet 25 mg PO QDAY 08/11/19 mirtazapine 15 mg tablet 45 mg PO QHS 08/11/19 multivitamin 1 cap PO DAILY 08/11/19 nitroglycerin 0.4 mg sublingual tablet (Nitrostat) 0.4 mg sublingual ONCE PRN chest pain 08/11/19 budesonide-formoterol HFA 160 mcg-4.5 mcg/actuation aerosol inhaler 2 puff i nhalation BID #10.2 grams 12/05/19 clopidogrel 75 mg tablet 75 mg PO QDAY #90 tabs 12/29/19 furosemide 40 mg tablet (Lasix) 60 mg PO DAILY 11/15/20 metformin 1,000 mg tablet 1,000 mg PO BID 11/15/20 isosorbide mononitrate 60 mg tablet,extended release 24 hr 30 mg (1/2 x 60 mg) PO BID #90 tabs 12/03/21 gabapentin 400 mg capsule 800 mg PO TID 09/18/22 omeprazole 40 mg capsule,delayed release 40 mg PO DAILY 1 month #30 caps 06/05/23 rosuvastatin 20 mg tablet 20 mg PO QHS 1 month #30 tabs 06/05/23 icosapent ethyl 1 gram capsule 2 g PO BID 06/30/23 empagliflozin 25 mg tablet (Jardiance) 25 mg PO DAILY #30 tabs 11/24/23 fluticasone fur. 100 mcg-umeclid 62.5 mcg-vilant 25 mcg inhalat.powder (Trelegy Ellipta) 1 ea inhalation DAILY copd 03/07/24 gabapentin 800 mg tablet 800 mg PO TID pain 03/07/24 doxycycline hyclate 100 mg capsule 100 mg PO BID 22 days #44 caps 03/15/24 oxycodone 5 mg tablet 10 mg (2 x 5 mg) PO Q4H PRN PRN Pain Score 6-10 3 days #20 tabs 03/15/24
== END 2024-03-15 14:22 | disposition home or self-care (01) | DRG 513 ==
LOC: ED 16:41 → MS3 19:00
PROVIDERS: Internal Medicine; Surgery Plastic and Reconstructive Surgery; Admitting Provider Hospitalist; Emergency Provider Emergency Medicine; PCP Nurse Practitioner Family; Visit Provider Internal Medicine
PROC: 3E0234Z Introduction of Serum, Toxoid and Vaccine into Muscle, Percutaneous Approach (ICD-10-PCS; principal; 2024-03-06 19:30)
PROC: 01N50ZZ Release Median Nerve, Open Approach (ICD-10-PCS; principal; 2024-03-11 12:15)
DX: M65.141 Other infective (teno)synovitis, right hand (principal); M00.9 Pyogenic arthritis, unspecified; L02.413 Cutaneous abscess of right upper limb; E11.42 Type 2 diabetes mellitus with diabetic polyneuropathy; E03.9 Hypothyroidism, unspecified; Z66 Do not resuscitate; E66.01 Morbid (severe) obesity due to excess calories; J44.89 Other specified chronic obstructive pulmonary disease; I10 Essential (primary) hypertension; I73.9 Peripheral vascular disease, unspecified; F32.A Depression, unspecified; E11.51 Type 2 diabetes mellitus with diabetic peripheral angiopathy without gangrene; I25.10 Atherosclerotic heart disease of native coronary artery without angina pectoris; K21.9 Gastro-esophageal reflux disease without esophagitis; E78.00 Pure hypercholesterolemia, unspecified; Z79.4 Long term (current) use of insulin; F17.210 Nicotine dependence, cigarettes, uncomplicated; E78.5 Hyperlipidemia, unspecified; G47.33 Obstructive sleep apnea (adult) (pediatric); M25.461 Effusion, right knee; Z68.38 Body mass index [BMI] 38.0-38.9, adult; Z95.5 Presence of coronary angioplasty implant and graft; Z79.02 Long term (current) use of antithrombotics/antiplatelets; Z82.3 Family history of stroke; Z79.890 Hormone replacement therapy; Z79.84 Long term (current) use of oral hypoglycemic drugs; Z79.82 Long term (current) use of aspirin; Z86.73 Personal history of transient ischemic attack (TIA), and cerebral infarction without residual deficits; Z79.2 Long term (current) use of antibiotics; Z79.51 Long term (current) use of inhaled steroids
CPT/HCPCS: 36415; 73130; 73560; 80048; 80053; 80202; 82962; 83036; 83605; 84443; 85025; 85610; 85652; 85730; 86140; 87015; 87070; 87075; 87077; 87102; 87116; 87176; 87186; 87205; 87206; 90715; 93005; 94002; 94003; 94640; 94668; 94762; 97802; 99284; 99406; J7030; J7040; J7120; A4216; J0295; J2405

== ENCOUNTER 2024-03-23 07:09 | Day surgery (SDC) | payer MEDICAID, SELFPAY ==
[2024-03-23] VITALS (10 sets, daily range): BP systolic 116–134; BP diastolic 61–75; PULSE 61–67; RESP 16–20; TEMP 36.4–36.6; O2SAT 90–95; BMI 37.5
--- OUTSIDE RECORDS SUMMARY | 2024-03-23 07:12 | XMS RPT_ITS | CCD ---
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 Role Phone Lupe Hughes Primary Care Provider Neptali VALDEZ, Teri Unavailable LUPE HUGHES Primary Care Unavailable ANJANA HUNT Attending Unavailable LUPE HUGHES Primary Care Unavailable TERI GUNDERSON Referring Unavailable LUPE HUGHES Primary Care Unavailable Lupe Hughes CNP Primary Care Provider Neptali VALDEZ, Teri Unavailable Medications Current Medications Medication Drug Class(es) Dates Sig (Normalized) Sig (Original) albuterol 0.83 mg/ml inhalation solution (3 sources) beta2-Adrenergic Agonist take 2.5 mg by inhalation every four hours as needed albuterol (PROVENTIL) 2.5 mg /3 mL (0.083 %) nebulizer solution Use 2.5 mg via nebulizer every 4 hours as needed. Active albuterol sulfat e 90 mcg/actuation aebs Inhale as instructed. Active Comment on above: Use 2.5 mg via nebul izer every 4 hours as needed. amitriptyline hydrochloride 50 mg oral tablet (2 sources) Tricyclic Antidepressant take 1 tablet by mouth once daily at bedtime amitriptyline (ELAVIL) 50 mg tablet Take 50 mg by mouth daily at bedtime. Active Comment on above: Take 50 mg by mouth daily at bedtime. aspirin 81 mg delayed release oral tablet (2 sources) Platelet Aggregation Inhibitor, Nonsteroidal Anti-inflammatory Drug take 1 tablet by mouth once daily aspirin, enteric coated (ASPIRIN, ENTERIC COATED) 81 mg EC tablet Take 81 mg by mouth once daily. Active Comment on above: Take 81 mg by mouth once daily. BUDESONIDE/FORMOTEROL FUMARATE (SYMBICORT INHALATION) (2 sources) take 2 puff(s) by inhalation twice daily BUDESONIDE/FORMOTEROL FUMARATE (SYMBICORT INHALATION) Inhale 2 Puffs as instructed twice daily. Unsure of dosage Active take 2 puff(s) by in halation twice daily BUDESONIDE/FORMOTEROL FUMARATE (SYMBICOR T INHALATION) Inhale 2 Puffs as instructed twice daily. Unsure of dosage 0 Active Comment on above: Inhale 2 Puffs as in structed twice daily. Unsure of dosage cholecalciferol 1.25 mg oral capsule (2 sources) Vitamin D Start: take 1 capsule by mouth every week cholecalciferol, Vitamin D3, (VITAMIN D3) 1,250 mcg (50,000 unit) cap capsule Take 1 capsule by mouth one time a week. 07/25/2022 Active Comment on above: Take 1 capsule by [facility] one time a week. clopidogrel 75 mg oral tablet (2 sources) P2Y12 Platelet Inhibitor Start: take 1 tablet by mouth once daily clopidogrel (PLAVIX) 75 mg tablet Take 75 mg by mouth once daily. 07/25/2022 Active Comment on above: Take 75 mg by mouth once daily. DULoxetine 60 mg delayed release oral capsule (2 sources) Serotonin and Norepinephrine Reuptake Inhibitor Start: take 1 capsule by mouth once daily DULoxetine (CYMBALTA) 60 mg capsule Take 60 mg by mouth once daily. 07/25/2022 Active Comment on above: Take 60 mg by mouth once daily. empagliflozin 10 mg oral tablet (2 sources) Sodium-Glucose Cotransporter 2 Inhibitor Start: take 1 tablet by mouth once daily in the morning JARDIANCE 10 mg tablet Take 10 mg by mouth every morning. 07/25/2022 Active Comment on above: Take 10 mg by mouth every morning. ergocalciferol 1.25 mg oral capsule (2 sources) Provitamin D2 Compound take 1 capsule by mouth every week ergocalciferol 50,000 unit capsule (VITAMIN D2, DRISDOL) Take 50,000 Units by mouth once each week. Active Comment on above: Take 50,000 Units by mouth once each week. fenofibrate 67 mg oral capsule (2 sources) Peroxisome Proliferator Receptor alpha Agonist Start: 015 take 1 capsule by mouth once daily at breakfast fenofibrate (LOFIBRA) 67 mg capsule Take 1 capsule by mouth daily with breakfast. 30 capsule 0 07/21/2014 Active Comment on above: Take 1 capsule by mo uth daily with breakfast. fluticasone propionate 0.05 mg/actuat metered dose nasal spray (2 sources) Corticosteroid Start: 023 take 2 spray(s) nasal route once daily fluticasone (FLONASE) 50 mcg/actuation nasal spray Use 2 Sprays in each nostril once daily. 07/25/2022 Active Comment on above: Use 2 Sprays in each nostril once daily. furosemide 40 mg oral tablet (2 sources) Loop Diuretic take 1 tablet by mouth once daily furosemide (LASIX) 40 mg tablet Take 40 mg by mouth once daily. Active Comment on above: Take 40 mg by mouth once daily. gabapentin 300 mg oral capsule (2 sources) Anti-epileptic Agent gabapentin (NEURONTIN) 300 mg capsule Take 800 mg by mouth three times daily. Active take 2 capsules by m outh three times daily gabapentin (NEURONTIN) 300 mg capsule Ta ke 600 mg by mouth three times daily. 0 Active Comment on above: Take 600 mg by mouth three times daily. icosapent ethyl 500 mg oral capsule (1 source) icosapent ethyl (VASCEPA) 0.5 gram capsule Take 2 g by mouth twice daily. Active 24 hr isosorbide mononitrate 30 mg extended release oral tablet (2 sources) Nitrate Vasodilator Start: isosorbide mononitrate ER (IMDUR) 30 mg 24 hr tablet Take 30 tablets by mouth once daily. 03/28/2015 Active Comment on above: Take 30 tablets by m outh once daily. levothyroxine sodium 0.05 mg oral tablet (2 sources) l-Thyroxine Start: 015 take 1 tablet by mouth once daily before breakfast levothyroxine (SYNTHROID) 50 mcg tablet Take 1 tablet by mouth daily before breakfast. 30 tablet 0 07/21/2014 Active Comment on above: Take 1 tablet by rosmery th daily before breakfast. loratadine 10 mg oral tablet (2 sources) Start: 017 take 1 tablet by mouth every twenty-four hours loratadine (CLARITIN) 10 mg tablet Take 1 tablet by mouth q 24 HR. 07/16/2016 Active Comment on above: Take 1 tablet by rosmery th q 24 HR. losartan potassium 50 mg oral tablet (2 sources) Angiotensin 2 Receptor Alex Start: 015 take 1 tablet by mouth once daily losartan (COZAAR) 50 mg tablet Take 50 mg by mouth once daily. 03/29/2015 Active Comment on above: Take 50 mg by mouth once daily. meloxicam 15 mg oral tablet (2 sources) Nonsteroidal Anti-inflammatory Drug Start: 015 take 1 tablet by mouth once daily meloxicam (MOBIC) 15 mg tablet Take 1 tablet by mouth once daily. 30 tablet 3 01/09/2015 Active Comment on above: Take 1 tablet by rosmery th once daily. metFORMIN hydrochloride 500 mg oral tablet (2 sources) Biguanide take 2 tablets by mouth twice daily at mealtime metFORMIN (GLUCOPHAGE) 500 mg tablet Take 1,000 mg by mouth twice daily with meals. Active Comment on above: Take 1,000 mg by rosmery th twice daily with meals. mirtazapine 15 mg oral tablet (2 sources) take 3 tablets by mouth once daily at bedtime mirtazapine (REMERON) 15 mg tablet Take 45 mg by mouth daily at bedtime. Active Comment on above: Take 45 mg by mouth daily at bedtime. mv,yue,min/iron/foli c acid/lut (MULTIVIT,CA,IRON-FA -LYCOPN-LUT ORAL) (1 source) mv,yue,min/iron/ fol ic acid/lut (MULTIVIT,CA,IRON-F O-YOMZFB-VNI ORAL) Take by mouth. Active nitroglycerin 0.4 mg sublingual tablet (2 sources) Nitrate Vasodilator Start: 023 nitroglycerin sublingual (NITROQUICK) 0.4 mg SL tablet Dissolve 1 tablet under the tongue as needed. 07/21/2022 Active Comment on above: Dissolve 1 tablet un alexandra the tongue as needed. omeprazole 20 mg delayed release oral capsule (2 sources) Proton Pump Inhibitor take 1 capsule by mouth twice daily omeprazole (PRILOSEC) 20 mg capsule Take 20 mg by mouth twice daily. Active Comment on above: Take 20 mg by mouth twice daily. simvastatin 20 mg oral tablet (2 sources) HMG-CoA Reductase Inhibitor take 1 tablet by mouth once daily at bedtime simvastatin (ZOCOR) 20 mg tablet Take 20 mg by mouth daily at bedtime. Active Comment on above: Take 20 mg by mouth daily at bedtime. tiotropium 0.018 mg inhalation powder (2 sources) Anticholinergic take 1 capsule by inhalation once daily tiotropium (SPIRIVA) 18 mcg inhalation capsule Inhale 18 mcg as instructed once daily. Active Comment on above: Inhale 18 mcg as ins tructed once daily. tiZANidine 4 mg oral capsule (1 source) Central alpha-2 Adrenergic Agonist take 1 capsule by mouth twice daily tiZANidine HCl (ZANAFLEX) 4 mg capsule Take 4 mg by mouth twice daily. Active Problems Active Problems Problem Classification Problem Date Documented Date Episodic/Chronic Chronic obstructive pulmonary disease and bronchiectasis (2 sources) Chronic obstructive lung disease; Translations: [Chronic obstructive pulmonary disease, unspecified] Onset: 05-08-2015 05-08-2015 Chronic Conduction disorders (2 sources) Right bundle branch block; Translations: [Unspecified right bundle-branch block] Onset: 05-08-2015 05-08-2015 Chronic Coronary atherosclerosis and other heart disease (5 sources) Coronary arteriosclerosis; Translations: [Atherosclerotic heart disease of [place] coronary artery without angina pectoris] Onset: 05-08-2015 05-08-2015 Chronic Diabetes mellitus with complications (2 sources) Disorder of nervous system due to type 2 diabetes mellitus; Translations: [Type 2 diabetes mellitus with other diabetic neurological complication] Onset: 02-22-2024 Chronic Diabetes mellitus without complication (2 sources) Diabetes mellitus; Translations: [Type 2 diabetes mellitus without complications] Onset: 05-08-2015 05-08-2015 Chronic Esophageal disorders (2 sources) Gastroesophageal reflux disease; Translations: [Gastro-esophageal reflux disease without esophagitis] Onset: 05-08-2015 05-08-2015 Chronic Essential hypertension (2 sources) Hypertensive disorder; Translations: [Essential (primary) hypertension] Onset: 07-18-2014 Chronic Osteoarthritis (2 sources) Degenerative joint disease involving multiple joints; Translations: [Polyosteoarthritis, unspecified] Onset: 01-05-2015 01-05-2015 Chronic Other circulatory disease (1 source) Abnormal peripheral pulse; Translations: [Other specified symptoms and signs involving the circulatory and respiratory systems] Episodic Other connective tissue disease (1 source) Pain in right hand; Translations: [Right hand pain] Onset: 02-22-2024 Episodic Other nervous system disorders (2 sources) Chronic pain syndrome; Translations: [Chronic pain syndrome] Onset: 01-05-2015 01-05-2015 Chronic Other nervous system disorders (2 sources) Bilateral carpal tunnel syndrome; Translations: [Carpal tunnel syndrome, bilateral upper limbs] Onset: 02-06-2015 02-06-2015 Chronic Other nervous system disorders (2 sources) Carpal tunnel syndrome of left wrist; Translations: [Carpal tunnel syndrome, left upper limb] Onset: 05-21-2015 05-21-2015 Chronic Other nutritional; endocrine; and metabolic disorders (2 sources) Morbid obesity; Translations: [Morbid (severe) obesity due to excess calories] Onset: 05-08-2015 05-08-2015 Chronic Other skin disorders (1 source) Ingrowing toenail; Translations: [Ingrowing nail] Episodic Pancreatic disorders (not diabetes) (1 source) Acute pancreatitis without necrosis or infection, unspecified; Translations: [Acute pancreatitis, unspecified complication status, unspecified pancreatitis type] Onset: 12-12-2022 Episodic Residual codes; unclassified (2 sources) Obstructive sleep apnea syndrome; Translations: [Obstructive sleep apnea (adult) (pediatric)] Onset: 05-08-2015 05-08-2015 Chronic Thyroid disorders (3 sources) Hypothyroidism; Translations: [Hypothyroidism, unspecified] Onset: 07-18-2014 Chronic Past or Other Problems Problem Classification Problem Date Documented Da te Episodic/Chronic Abdominal pain (2 sources) Epigastric pain; Translations: [Epigastric pain] Onset: 07-18-2014 Episodic Other non-traumatic joint disorders (2 sources) Pain in lower limb; Translations: [Pain in unspecified knee] Onset: 02-12-2015 02-12-2015 Episodic Residual codes; unclassified (2 sources) Tobacco user; Translations: [Tobacco use] Onset: 05-08-2015 05-08-2015 Episodic Results Test Name Value Interpretation Reference Range Facil ity XR HAND 3V PA/LAT/OBL RTon 1 XR HAND 3V PA/LAT/OBL RT * * *Final Report* * * DATE OF EXAM: Mar 04 2024 8:45AM [id number] - XR HAND 3V PA/LAT/OBL RT / PROCEDURE REASON: M79.641 * * * * Physician Interpretation * * * * EXAMINATION / TECHNIQUE: XR HAND 3V PA/LAT/OBL RT HISTORY: PT STATES RIGHT HAND PAIN AND SWELLING X 2 WEEKS NO INJURY M79.641 COMPARISON: None RESULT: No acute fracture or dislocation. Joint spaces are maintained. No osseous erosion. IMPRESSION: No acute bony abnormality. Fuel Truck Driver: RITCHIE Transcribe Date/Time: Mar 07 2024 8:08P Dictated by : SHAGGY POLANCO MD This examination was interpreted and the report reviewed and electronically signed by: SHAGGY POLANCO MD on Mar 07 2024 8:08PM EST [id number] N Normal [facility] ALBUMIN/CREATININE RATIO, UR INEon 02-22-2024 Albumin DL <= 20 mg/L (U) [Mass/Vol] mg/dL Normal [facility] Comment on above: Order Comment: Speci men Type: URINE SPECIMEN Ordering Facility: [facility] Address: [address] [place] [address] Performed By: #### U ACR #### [facility] CLIA [id number] [address] [place] [address] [place] Albumin/Creatinine (U) [Mass ratio] <27 Normal <30 [facility] Comment on above: Order Comment: Speci men Type: URINE SPECIMEN Ordering Facility: [facility] Address: [address] [place] [address] Result Comment: Adul t Male and Female Nephrotic Criteria: <30 mg/g is considered normal to mildly increased 30-300 mg/g is considered moderately increased >300 mg/g is considered severely increased KDIGO. (2013). KDIGO 2012 Clinical Practice Guideline for the Evaluation and Management of Chronic Kidney Disease. Official Journal of the International Society of Nephrology, 3(1), 1-150. Performed By: #### U ACR #### [facility] CLIA [id number] [address] [place] [address] [place] Creatinine (U) [Mass/Vol] 44.8 mg/dL Normal 20.0-300.0 [facility] Comment on above: Order Comment: Speci men Type: URINE SPECIMEN Ordering Facility: [facility] Address: [address] [place] [address] Performed By: #### U ACR #### [facility] CLIA [id number] [address] [place] [address] [place] CBC W Auto Differential pane l (Bld)on 02-22-2024 Basophils (Bld) [#/Vol] 10*3/uL Normal <0.11 [facility] Comment on above: Order Comment: Speci men Type: BLOOD SPECIMEN Ordering Facility: [facility] Address: [address] [place] [address] Performed By: #### 5 7021-8 #### [id number] [address] [place] [address] [place] Basophils/100 WBC (Bld) 0.4 % Normal [facility] Comment on above: Order Comment: Speci men Type: BLOOD SPECIMEN Ordering Facility: [facility] Address: [address] [place] [address] Performed By: #### 5 7021-8 #### [facility] [id number] [address] [place] [address] [place] Differential cell count method Nom (Bld) Auto Normal [facility] Comment on above: Order Comment: Speci men Type: BLOOD SPECIMEN Ordering Facility: [facility] Address: [address] [place] [address] Performed By: #### 5 7021-8 #### [facility] [id number] [address] [place] [address] [place] Eosinophils (Bld) [#/Vol] 0.09 10*3/uL Normal <0.46 [facility] Comment on above: Order Comment: Speci men Type: BLOOD SPECIMEN Ordering Facility: [facility] Address: [address] [place] [address] Performed By: #### 5 7021-8 #### [facility] CLIA [id number] [address] [place] [address] [place] Eosinophils/100 WBC (Bld) 1.9 % Normal [facility] Comment on above: Order Comment: Speci men Type: BLOOD SPECIMEN Ordering Facility: [facility] Address: [address] [place] [address] Performed By: #### 5 7021-8 #### [facility] CLIA [id number] [address] [place] [address] [place] Erythrocyte distribution width (RBC) [Ratio] 12.5 % Normal 11.5-15.0 [facility] Comment on above: Order Comment: Speci men Type: BLOOD SPECIMEN Ordering Facility: [facility] Address: [address] [place] [address] Performed By: #### 5 7021-8 #### [facility] CLIA [id number] [address] [place] [address] [place] Hematocrit (Bld) [Volume fraction] 49.2 % Normal 39.0-51.0 [facility] Comment on above: Order Comment: Speci men Type: BLOOD SPECIMEN Ordering Facility: [facility] Address: [address] [place] [address] Performed By: #### 5 7021-8 #### [facility] CLIA [id number] [address] [place] [address] [place] Hemoglobin (Bld) [Mass/Vol] 17.3 g/dL High 13.0-17.0 [facility] Comment on above: Order Comment: Speci men Type: BLOOD SPECIMEN Ordering Facility: [facility] Address: [address] [place] [address] Performed By: #### 5 7021-8 #### [facility] CLIA [id number] [address] [place] [address] [place] Immature granulocytes (Bld) [#/Vol] 10*3/uL Normal <0.10 [facility] Comment on above: Order Comment: Speci men Type: BLOOD SPECIMEN Ordering Facility: [facility] Address: [address] [place] [address] Performed By: #### 5 7021-8 #### [facility] CLIA [id number] [address] [place] [address] [place] Immature granulocytes/100 WBC (Bld) 0.2 % Normal [facility] Comment on above: Order Comment: Speci men Type: BLOOD SPECIMEN Ordering Facility: [facility] Address: [address] [place] [address] Performed By: #### 5 7021-8 #### [facility] CLIA [id number] [address] [place] [address] [place] Lymphocytes (Bld) [#/Vol] 1.75 10*3/uL Normal 1.00-4.00 [facility] Comment on above: Order Comment: Speci men Type: BLOOD SPECIMEN Ordering Facility: [facility] Address: [address] [place] [address] Performed By: #### 5 7021-8 #### [facility] CLIA [id number] [address] [place] [address] [place] Lymphocytes/100 WBC (Bld) 36.1 % Normal [facility] Comment on above: Order Comment: Speci men Type: BLOOD SPECIMEN Ordering Facility: [facility] Address: [address] [place] [address] Performed By: #### 5 7021-8 #### [facility] [id number] [address] [place] [address] [place] MCH (RBC) [Entitic mass] 34.2 pg High 26.0-34.0 [facility] Comment on above: Order Comment: Speci men Type: BLOOD SPECIMEN Ordering Facility: [facility] Address: [address] [place] [address] Performed By: #### 5 7021-8 #### [facility] CLIA [id number] [address] [place] [address] [place] MCHC (RBC) [Mass/Vol] 35.2 g/dL Normal 30.5-36.0 [facility] Comment on above: Order Comment: Speci men Type: BLOOD SPECIMEN Ordering Facility: [facility] Address: [address] [place] [address] Performed By: #### 5 7021-8 #### [facility] CLIA [id number] [address] [place] [address] [place] MCV (RBC) [Entitic vol] 97.2 fL Normal 80.0-100.0 [facility] Comment on above: Order Comment: Speci men Type: BLOOD SPECIMEN Ordering Facility: [facility] Address: [address] [place] [address] Performed By: #### 5 7021-8 #### [facility] CLIA [id number] [address] [place] [address] [place] Monocytes (Bld) [#/Vol] 0.36 10*3/uL Normal <0.87 [facility] Comment on above: Order Comment: Speci men Type: BLOOD SPECIMEN Ordering Facility: [facility] Address: [address] [place] [address] Performed By: #### 5 7021-8 #### [facility] CLIA [id number] [address] [place] [address] [place] Monocytes/100 WBC (Bld) 7.4 % Normal [facility] Comment on above: Order Comment: Speci men Type: BLOOD SPECIMEN Ordering Facility: [facility] Address: [address] [place] [address] Performed By: #### 5 7021-8 #### [facility] CLIA [id number] [address] [place] [address] [place] Neutrophils (Bld) [#/Vol] 2.62 10*3/uL Normal 1.45-7.50 [facility] Comment on above: Order Comment: Speci men Type: BLOOD SPECIMEN Ordering Facility: [facility] Address: [address] [place] [address] Performed By: #### 5 7021-8 #### [facility] CLIA [id number] [address] [place] [address] [place] Neutrophils/100 WBC (Bld) 54.0 % Normal [facility] Comment on above: Order Comment: Speci men Type: BLOOD SPECIMEN Ordering Facility: [facility] Address: [address] [place] [address] Performed By: #### 5 7021-8 #### [facility] CLIA [id number] [address] [place] [address] [place] Nucleated RBC (Bld) [#/Vol] 10*3/uL Normal <0.01 [facility] Comment on above: Order Comment: Speci men Type: BLOOD SPECIMEN Ordering Facility: [facility] Address: [address] [place] [address] Performed By: #### 5 7021-8 #### [facility] CLIA [id number] [address] [place] [address] [place] Nucleated RBC/100 WBC (Bld) [Ratio] 0.0 /100 WBC Normal [facility] Comment on above: Order Comment: Speci men Type: BLOOD SPECIMEN Ordering Facility: [facility] Address: [address] [place] [address] Performed By: #### 5 7021-8 #### [facility] CLIA [id number] [address] [place] [address] [place] Platelet mean volume (Bld) [Entitic vol] 10.3 fL Normal 9.0-12.7 [facility] Comment on above: Order Comment: Speci men Type: BLOOD SPECIMEN Ordering Facility: [facility] Address: [address] [place] [address] Performed By: #### 5 7021-8 #### [facility] CLIA [id number] [address] [place] [address] [place] Platelets (Bld) [#/Vol] 109 10*3/uL Low 150-400 [facility] Comment on above: Order Comment: Speci men Type: BLOOD SPECIMEN Ordering Facility: [facility] Address: [address] [place] [address] Performed By: #### 5 7021-8 #### [facility] CLIA [id number] [address] [place] [address] [place] RBC (Bld) [#/Vol] 5.06 10*6/uL Normal 4.20-6.00 [facility] Comment on above: Order Comment: Speci men Type: BLOOD SPECIMEN Ordering Facility: [facility] Address: [address] [place] [address] Performed By: #### 5 7021-8 #### [facility] CLIA [id number] [address] [place] [address] [place] WBC (Bld) [#/Vol] 4.85 10*3/uL Normal 3.70-11.00 [facility] Comment on above: Order Comment: Speci men Type: BLOOD SPECIMEN Ordering Facility: [facility] Address: [address] [place] [address] Performed By: #### 5 7021-8 #### [facility] CLIA [id number] [address] [place] [address] [place] CRP SerPl HS-mCncon 02-22-20 CRP High sensitivity method [Mass/Vol] 0.4 mg/L Normal <3.1 [facility] Comment on above: Order Comment: Speci men Type: BLOOD SPECIMEN Ordering Facility: [facility] Address: [address] [place] [address], [place] [address] Result Comment: hsCR P < 1.0 mg/L, relative risk is low hsCRP 1.0-3.0 mg/L, relative risk is average hsCRP > 3.0 mg/L, relative risk is high Reference: Scarlet TA, Kamran GA, Dilshad RW, et al. Markers of Inflammation and Cardiovascular Disease. Application to Clinical and Public Health Practice. A Statement for Healthcare Professionals from the Centers for Disease Control and Prevention and the [place] [employer]. Circulation 2003;107:499-511. Performed By: #### 2 4331-1 #### [facility] CLIA [id number] [address] [place] [address] [place] [facility] CLIA [id number] [address] [place] [address] [place] #### 3016-3, 85630-6 #### [facility] CLIA [id number] [address] [place] [address] [place] Comprehensive metabolic 2000 panelon 02-22-2024 Albumin [Mass/Vol] 4.4 g/dL Normal 3.9-4.9 [facility] Comment on above: Order Comment: Speci men Type: BLOOD SPECIMEN Ordering Facility: [facility] Address: [address] [place] [address], [place] [address] Performed By: #### 3 084-1, 88452-2 #### [facility] CLIA [id number] [address] [place] [address] [place] ALP [Catalytic activity/Vol] 102 U/L Normal 38-113 [facility] Comment on above: Order Comment: Speci men Type: BLOOD SPECIMEN Ordering Facility: [facility] Address: [address] [place] [address], [place] [address] Performed By: #### 3 084-1, 40294-8 #### [facility] CLIA [id number] [address] [place] [address] [place] ALT [Catalytic activity/Vol] 71 U/L High 10-54 [facility] Comment on above: Order Comment: Speci men Type: BLOOD SPECIMEN Ordering Facility: [facility] Address: [address] [place] [address] Performed By: #### 3 084-1, 10292-8 #### [facility] CLIA [id number] [address] [place] [address] [place] Anion gap [Moles/Vol] 9 mmol/L Normal 8-15 [facility] Comment on above: Order Comment: Speci men Type: BLOOD SPECIMEN Ordering Facility: [facility] Address: [address] [place] [address] Performed By: #### 3 084-1, 31138-4 #### [facility] CLIA [id number] [address] [place] [address] [place] AST [Catalytic activity/Vol] 55 U/L High 14-40 [facility] Comment on above: Order Comment: Speci men Type: BLOOD SPECIMEN Ordering Facility: [facility] Address: [address] [place] [address] Performed By: #### 3 084-1, 64270-4 #### [facility] CLIA [id number] [address] [place] [address] [place] Bilirubin [Mass/Vol] 0.6 mg/dL Normal 0.2-1.3 [facility] Comment on above: Order Comment: Speci men Type: BLOOD SPECIMEN Ordering Facility: [facility] Address: [address] [place] [address] Performed By: #### 3 084-1, 64263-4 #### [facility] CLIA [id number] [address] [place] [address] [place] Calcium [Mass/Vol] 9.6 mg/dL Normal 8.5-10.2 [facility] Comment on above: Order Comment: Speci men Type: BLOOD SPECIMEN Ordering Facility: [facility] Address: [address] [place] [address], [place] [address] Performed By: #### 3 084-1, 59316-5 #### [facility] CLIA [id number] [address] [place] [address] [place] Chloride [Moles/Vol] 104 mmol/L Normal 98-107 [facility] Comment on above: Order Comment: Speci men Type: BLOOD SPECIMEN Ordering Facility: [facility] Address: [address] [place] [address], [place] [address] Performed By: #### 3 084-1, 41484-4 #### [facility] CLIA [id number] [address] [place] [address] [place] CO2 [Moles/Vol] 24 mmol/L Normal 22-30 [facility] Comment on above: Order Comment: Speci men Type: BLOOD SPECIMEN Ordering Facility: [facility] Address: [address] [place] [address], [place] [address] Performed By: #### 3 084-1, 87195-0 #### [id number] [address] [place] [address] [place] Creatinine [Mass/Vol] 0.76 mg/dL Normal 0.73-1.22 [facility] Comment on above: Order Comment: Speci men Type: BLOOD SPECIMEN Ordering Facility: [facility] Address: [address] [place] [address], [place] [address] Performed By: #### 3 084-1, 19946-5 #### [facility] CLIA [id number] [address] [place] [address] [place] Creatinine and Glomerular filtration rate.predicted panel (S/P/Bld) 105 mL/min/1.73m??? Normal >=60 [facility] Comment on above: Order Comment: Speci men Type: BLOOD SPECIMEN Ordering Facility: [facility] Address: [address] [place] [address], [place] [address] Result Comment: Mary mated Glomerular Filtration Rate (eGFR) is calculated using the 2020 CKD-EPI creatinine equation. This equation utilizes serum creatinine, sex, and age as parameters. The creatinine assay has traceable calibration to isotope dilution-mass spectrometry. Refer to KDIGO guidelines for clinical interpretation. In patients with unstable renal function, e.g. those with acute kidney injury, the eGFR may not accurately reflect actual GFR. Performed By: #### 3 084-1, 01552-3 #### [facility] [id number] [address] [place] [address] [place] Glucose [Mass/Vol] 129 mg/dL High 74-99 [facility] Comment on above: Order Comment: Nelda jimenez Type: BLOOD SPECIMEN Ordering Facility: [facility] Address: [address] [place] [address] Result Comment: The [place] Diabetes Association (ADA) provides guidance for cutoff values for fasting glucose and random glucose. The ADA defines fasting as no caloric intake for at least 8 hours. Fasting plasma glucose results between 100 to 125 mg/dL indicate increased risk for diabetes (prediabetes). Fasting plasma glucose results greater than or equal to 126 mg/dL meet the criteria for diagnosis of diabetes. In the absence of unequivocal hyperglycemia, results should be confirmed by repeat testing. In a patient with classic symptoms of hyperglycemia or hyperglycemic crisis, random plasma glucose results greater than or equal to 200 mg/dL meet the criteria for diagnosis of diabetes. Reference: Standards of Medical Care in Diabetes 2016, [place] [employer] Association. Diabetes Care. 2016.39(Suppl 1). Performed By: #### 3 084-1, 87648-2 #### [facility] [id number] [address] [place] [address] [place] Potassium [Moles/Vol] 4.1 mmol/L Normal 3.7-5.1 [facility] Comment on above: Order Comment: Nelda jimenez Type: BLOOD SPECIMEN Ordering Facility: [facility] Address: [address] [place] [address], [place] [address] Performed By: #### 3 084-1, 57614-5 #### [facility] CLIA [id number] [address] [place] [address] [place] Protein [Mass/Vol] 6.7 g/dL Normal 6.3-8.0 [facility] Comment on above: Order Comment: Speci men Type: BLOOD SPECIMEN Ordering Facility: [facility] Address: [address] [place] [address] Performed By: #### 3 084-1, 19378-9 #### [facility] CLIA [id number] [address] [place] [address] [place] Sodium [Moles/Vol] 137 mmol/L Normal 136-144 [facility] Comment on above: Order Comment: Speci men Type: BLOOD SPECIMEN Ordering Facility: [facility] Address: [address] [place] [address] Performed By: #### 3 084-1, 60719-8 #### [facility] CLIA [id number] [address] [place] [address] [place] Urea nitrogen [Mass/Vol] 7 mg/dL Low 9-24 [facility] Comment on above: Order Comment: Speci men Type: BLOOD SPECIMEN Ordering Facility: [facility] Address: [address] [place] [address], [place] [address] Performed By: #### 3 084-1, 16811-5 #### [facility] CLIA [id number] [address] [place] [address] [place] ESR Westergren method (Bld) [Velocity]on 02-22-2024 ESR (Bld) [Velocity] 2 mm/h Normal 0-15 [facility] Comment on above: Order Comment: Speci men Type: BLOOD SPECIMEN Ordering Facility: [facility] Address: [address] [place] [address] Performed By: #### 4 537-7 #### [facility] CLIA [id number] [address] [place] [address] [place] Lipid 1996 panelon 4 Cholesterol [Mass/Vol] 106 mg/dL Normal <200 [facility] Comment on above: Order Comment: Speci men Type: BLOOD SPECIMEN Ordering Facility: [facility] Address: [address] [place] [address] Result Comment: <200 mg/dL, Desirable 200-239 mg/dL, Borderline high >239 mg/dL, High Performed By: #### 2 4331-1 #### [facility] CLIA [id number] [address] [place] [address] [place] [address] [place] #### 3016-3, 54085-6 #### [facility] CLIA [id number] [address] [place] [address] [place] Cholesterol in HDL [Mass/Vol] 37 mg/dL Low >39 [facility] Comment on above: Order Comment: Speci men Type: BLOOD SPECIMEN Ordering Facility: [facility] Address: [address] [place] [address] Result Comment: 40-5 9 mg/dL, Acceptable >59 mg/dL, High: Negative risk factor for coronary heart disease <40 mg/dL, Low: Positive risk factor for coronary heart disease Performed By: #### 2 4331-1 #### [facility] CLIA [id number] [address] [place] [address] [place] [facility] [id number] [place] [address] [place] #### 3016-3, 77560-6 #### [facility] CLIA [id number] [address] [place] Cholesterol in LDL [Mass/Vol] 43 mg/dL Normal <100 [facility] Comment on above: Order Comment: Speci men Type: BLOOD SPECIMEN Ordering Facility: [facility] Address: [address] [place] [address] Result Comment: <100 mg/dL, Optimal 100-129 mg/dL, Near optimal/above optimal 130-159 mg/dL, Borderline high 160-189 mg/dL, High >189 mg/dL, Very high Secondary prevention optimal LDL Cholesterol levels are recommended to be < 70 mg/dL Performed By: #### 2 4331-1 #### [facility] CLIA [id number] [facility] [place] [address] [place] [facility] CLIA [id number] [address] [place] [address] [place] #### 3016-3, 07918-0 #### [facility] CLIA [id number] [facility] [address] [place] Cholesterol in LDL/Cholesterol in HDL [Mass ratio] 1.16 {ratio} Normal <2.54 [facility] Comment on above: Order Comment: Speci men Type: BLOOD SPECIMEN Ordering Facility: [facility] Address: [address] [place] [address] Result Comment: Vanda paiz: 1. National Cholesterol Education Program ATP III Guideline At-A-Glance Quick Desk Reference: National Heart, Lung, and Blood Barton. National Institutes of Health. 2001: NIH Publication No. 01-3305. 2. An International Atherosclerosis Society position paper: global recommendations for the management of dyslipidemia: executive summary, Atherosclerosis. 2014: 232(2):410-413. Performed By: #### 2 4331-1 #### [facility] CLIA [id number] [address] [place] [facility] CLIA [id number] [address] [place] [address] [place] #### 3016-3, 76127-7 #### [facility] CLIA [id number] [address] [place] [address] [place] Cholesterol in VLDL [Mass/Vol] 26 mg/dL Normal <30 [facility] Comment on above: Order Comment: Speci men Type: BLOOD SPECIMEN Ordering Facility: [facility] Address: [address] [place] [address], [place] [address] Performed By: #### 2 4331-1 #### [facility] CLIA [id number] [address] [place] [address] [place] [facility] CLIA [id number] [address] [place] [address] [place] #### 3016-3, 02152-2 #### [facility] CLIA [id number] [address] [place] [address] [place] Cholesterol non HDL [Mass/Vol] 69 mg/dL Normal <130 [facility] Comment on above: Order Comment: Speci men Type: BLOOD SPECIMEN Ordering Facility: [facility] Address: [address] [place] [address], [place] [address] Result Comment: <130 mg/dL, Optimal 130-159 mg/dL, Near optimal/above optimal 160-189 mg/dL, Borderline high 190-219 mg/dL, High >219 mg/dL, Very high Secondary prevention optimal non HDL Cholesterol levels are recommended to be <100 mg/dL Performed By: #### 2 4331-1 #### [facility] CLIA [id number] [address] [place] [address] [place] [facility] CLIA [id number] [address] [place] [address] [place] #### 3016-3, 83031-4 #### [facility] CLIA [id number] [address] [place] [address] [place] Cholesterol.total/C holesterol in HDL [Mass ratio] 2.86 {ratio} Normal <5.10 [facility] Comment on above: Order Comment: Speci men Type: BLOOD SPECIMEN Ordering Facility: [facility] Address: [facility] [place] [address] Performed By: #### 2 4331-1 #### [facility] CLIA [id number] [address] [place] [address] [place] [facility] CLIA [id number] [address] [place] [address] [place] #### 3016-3, 45065-8 #### [facility] CLIA [id number] [address] [place] [address] [place] FASTING TIME 11 hrs Normal [facility] Comment on above: Order Comment: Speci men Type: BLOOD SPECIMEN Ordering Facility: [facility] Address: [address] [place] [address], [place] [address] Performed By: #### 2 4331-1 #### [facility] CLIA [id number] [address] [place] [address] [place] [facility] CLIA [id number] [address] [place] [address] [place] #### 3016-3, 66659-5 #### [facility] CLIA [id number] [address] [place] [address] [place] Triglyceride [Mass/Vol] 128 mg/dL Normal <150 [facility] Comment on above: Order Comment: Speci men Type: BLOOD SPECIMEN Ordering Facility: [facility] Address: [address] [place] [address], [place] [address] Result Comment: <150 mg/dL, Normal 150-199 mg/dL, Borderline high 200-499 mg/dL, High >499 mg/dL, Very high Performed By: #### 2 4331-1 #### [facility] CLIA [id number] [facility] [place] [address] [place] [facility] CLIA [id number] [address] [place] [address] [place] #### 3016-3, 59844-8 #### [facility] CLIA [id number] [address] [place] [address] [place] TSH SerPl-aCncon 02-22-2024 TSH Qn 2.970 m[IU]/L Normal 0.270-4.200 [facility] Comment on above: Order Comment: Speci men Type: BLOOD SPECIMEN Ordering Facility: [facility] Address: [address] [place] [address] Performed By: #### 2 4331-1 #### [facility] CLIA [id number] [address] [place] [address] [place] [facility] CLIA [id number] [address] [place] [address] [place] #### 3016-3, 84617-3 #### [facility] CLIA [id number] [address] [place] [address] [place] Urate SerPl-mCncon Urate [Mass/Vol] 3.9 mg/dL Low 4.0-8.1 [facility] Comment on above: Order Comment: Speci men Type: BLOOD SPECIMEN Ordering Facility: [facility] Address: [address] [place] [address], [place] [address] Performed By: #### 3 084-1, 47830-3 #### [facility] CLIA [id number] [address] [place] [address] [place] CBC W Auto Differential pane l (Bld)on 12-12-2022 Basophils (Bld) [#/Vol] 10*3/uL Normal <0.11 [facility] Comment on above: Order Comment: Speci men Type: BLOOD SPECIMEN Ordering Facility: [facility] Address: [address] [place] [address] Performed By: #### 5 7021-8 #### [facility] CLIA [id number] [address] [place] [address] [place] Basophils/100 WBC (Bld) 0.2 % Normal [facility] Comment on above: Order Comment: Speci men Type: BLOOD SPECIMEN Ordering Facility: [facility] Address: [address] [place] [address] Performed By: #### 5 7021-8 #### [facility] CLIA [id number] [address] [place] [address] [place] Differential cell count method Nom (Bld) Auto Normal [facility] Comment on above: Order Comment: Speci men Type: BLOOD SPECIMEN Ordering Facility: [facility] Address: [address] [place] [address] Performed By: #### 5 7021-8 #### [facility] CLIA [id number] [address] [place] [address] [place] Eosinophils (Bld) [#/Vol] 0.08 10*3/uL Normal <0.46 [facility] Comment on above: Order Comment: Speci men Type: BLOOD SPECIMEN Ordering Facility: [facility] Address: [address] [place] [address] Performed By: #### 5 7021-8 #### [facility] CLIA [id number] [address] [place] [address] [place] Eosinophils/100 WBC (Bld) 1.0 % Normal [facility] Comment on above: Order Comment: Speci men Type: BLOOD SPECIMEN Ordering Facility: [facility] Address: [address] [place] [address] Performed By: #### 5 7021-8 #### [facility] CLIA [id number] [address] [place] [address] [place] Erythrocyte distribution width (RBC) [Ratio] 12.6 % Normal 11.5-15.0 [facility] Comment on above: Order Comment: Speci men Type: BLOOD SPECIMEN Ordering Facility: [facility] Address: [address] [place] [address] Performed By: #### 5 7021-8 #### [facility] CLIA [id number] [address] [place] [address] [place] Hematocrit (Bld) [Volume fraction] 49.3 % Normal 39.0-51.0 [facility] Comment on above: Order Comment: Speci men Type: BLOOD SPECIMEN Ordering Facility: [facility] Address: [address] [place] [address] Performed By: #### 5 7021-8 #### [facility] CLIA [id number] [address] [place] [id number] [place] Hemoglobin (Bld) [Mass/Vol] 16.9 g/dL Normal 13.0-17.0 [facility] Comment on above: Order Comment: Speci men Type: BLOOD SPECIMEN Ordering Facility: [facility] Address: [address] [place] [address] Performed By: #### 5 7021-8 #### [facility] CLIA [id number] [address] [place] [id number] [place] Immature granulocytes (Bld) [#/Vol] 10*3/uL Normal <0.10 [facility] Comment on above: Order Comment: Speci men Type: BLOOD SPECIMEN Ordering Facility: [facility] Address: [address] [place] [address] Performed By: #### 5 7021-8 #### [facility] CLIA [id number] [address] [place] Immature granulocytes/100 WBC (Bld) 0.1 % Normal [facility] Comment on above: Order Comment: Speci men Type: BLOOD SPECIMEN Ordering Facility: [facility] Address: [address] [place] [address] Performed By: #### 5 7021-8 #### [facility] CLIA [id number] [address] [place] [address] [place] Lymphocytes (Bld) [#/Vol] 1.77 10*3/uL Normal 1.00-4.00 [facility] Comment on above: Order Comment: Speci men Type: BLOOD SPECIMEN Ordering Facility: [facility] Address: [address] [place] [address] Performed By: #### 5 7021-8 #### [facility] CLIA [id number] [address] [place] [address] Lymphocytes/100 WBC (Bld) 21.3 % Normal [facility] Comment on above: Order Comment: Speci men Type: BLOOD SPECIMEN Ordering Facility: [facility] Address: [address] [place] [address] Performed By: #### 5 7021-8 #### [facility] CLIA [id number] [address] [place] [address] [place] MCH (RBC) [Entitic mass] 34.5 pg High 26.0-34.0 [facility] Comment on above: Order Comment: Speci men Type: BLOOD SPECIMEN Ordering Facility: [facility] Address: [address] [place] [address] Performed By: #### 5 7021-8 #### [facility] CLIA [id number] [address] [place] [address] [place] MCHC (RBC) [Mass/Vol] 34.3 g/dL Normal 30.5-36.0 [facility] Comment on above: Order Comment: Speci men Type: BLOOD SPECIMEN Ordering Facility: [facility] Address: [address] [place] [address] Performed By: #### 5 7021-8 #### [facility] CLIA [id number] [address] [place] [address] MCV (RBC) [Entitic vol] 100.6 fL High 80.0-100.0 [facility] Comment on above: Order Comment: Speci men Type: BLOOD SPECIMEN Ordering Facility: [facility] Address: [address] [place] [address] Performed By: #### 5 7021-8 #### [facility] CLIA [id number] [address] [place] [address] [place] Monocytes (Bld) [#/Vol] 0.43 10*3/uL Normal <0.87 [facility] Comment on above: Order Comment: Speci men Type: BLOOD SPECIMEN Ordering Facility: [facility] Address: [address] [place] [address] Performed By: #### 5 7021-8 #### [facility] CLIA [id number] [address] [place] Monocytes/100 WBC (Bld) 5.2 % Normal [facility] Comment on above: Order Comment: Speci men Type: BLOOD SPECIMEN Ordering Facility: [facility] Address: [address] [place] [address] Performed By: #### 5 7021-8 #### [facility] CLIA [id number] [address] [place] [address] [place] Neutrophils (Bld) [#/Vol] 6.00 10*3/uL Normal 1.45-7.50 [facility] Comment on above: Order Comment: Speci men Type: BLOOD SPECIMEN Ordering Facility: [facility] Address: [address] [place] [address] Performed By: #### 5 7021-8 #### [facility] CLIA [id number] [address] [place] Neutrophils/100 WBC (Bld) 72.2 % Normal [facility] Comment on above: Order Comment: Speci men Type: BLOOD SPECIMEN Ordering Facility: [facility] Address: [address] [place] [address] Performed By: #### 5 7021-8 #### [facility] CLIA [id number] [address] [place] [address] [place] Nucleated RBC (Bld) [#/Vol] Normal [facility] Comment on above: Order Comment: Speci men Type: BLOOD SPECIMEN Ordering Facility: [facility] Address: [address] [place] [address] Performed By: #### 5 7021-8 #### [facility] [facility] CLIA [id number] [address] [place] [address] [place] Nucleated RBC/100 WBC (Bld) [Ratio] Normal [facility] Comment on above: Order Comment: Speci men Type: BLOOD SPECIMEN Ordering Facility: [facility] Address: [address] [place] [address] Performed By: #### 5 7021-8 #### [facility] CLIA [id number] [address] [place] [address] [place] Platelet mean volume (Bld) [Entitic vol] 11.3 fL Normal 9.0-12.7 [facility] Comment on above: Order Comment: Speci men Type: BLOOD SPECIMEN Ordering Facility: [facility] Address: [address] [place] [address] Performed By: #### 5 7021-8 #### [facility] CLIA [id number] [address] [place] [address] [place] Platelets (Bld) [#/Vol] 127 10*3/uL Low 150-400 [facility] Comment on above: Order Comment: Speci men Type: BLOOD SPECIMEN Ordering Facility: [facility] Address: [address] [place] [address] Performed By: #### 5 7021-8 #### [facility] CLIA [id number] [address] [place] [address] [place] RBC (Bld) [#/Vol] 4.90 10*6/uL Normal 4.20-6.00 [facility] Comment on above: Order Comment: Speci men Type: BLOOD SPECIMEN Ordering Facility: [facility] Address: [place] [address] Performed By: #### 5 7021-8 #### [facility] CLIA [id number] [address] [place] [address] [facility] WBC (Bld) [#/Vol] 8.31 10*3/uL Normal 3.70-11.00 [facility] Comment on above: Order Comment: Speci men Type: BLOOD SPECIMEN Ordering Facility: [facility] Address: [place] [address] Performed By: #### 5 7021-8 #### [facility] CLIA [id number] [address] [place] [address] [facility] OF DI CT ABD/PEL W IVCONon -14-[address] ABD/PEL W IVCON * * *Final Report* * * DATE OF EXAM: Dec 12 2022 1:37PM [facility] [place] 2] 0530 - CT ABD/PEL W IVCON / PROCEDURE REASON: LLQ abdominal pain * * * * Physician Interpretation * * * * EXAMINATION: CT ABDOMEN AND PELVIS WITH IV CONTRAST CLINICAL HISTORY: Left flank pain TECHNIQUE: CT of the abdomen and pelvis was performed using standard technique, scanning from just above the dome of the diaphragm to the symphysis pubis. MQ: CTAP_3 Contrast: IV: 150 ml of Omnipaque 300 : ml of CT Radiation dose: Integrated Dose-length product (DLP) for this visit = 1721.84 mGy*cm. CT Dose Reduction Employed: Automated exposure control (AEC) COMPARISON: 07/18/2014 CT RESULT: Liver: No mass. Advanced fatty liver changes Biliary: No bile duct dilation. Cholecystectomy clips Spleen: No mass. No splenomegaly. Pancreas: No mass or duct dilation. Adrenals: No mass. Kidneys: Normal nephrogram phase. No hydronephrosis, calculi or intrinsic mass. Cortical scarring upper pole left kidney. GI tract: No dilation or wall thickening. No evidence of appendicitis or diverticulitis Lymph nodes: No abdominal or pelvic lymphadenopathy. Mesentery/Peritoneum: Inflammatory change involving mesenteric fat left flank region with thickening of the fascia coronal image 67 and axial image 51. Findings may related to underlying inflammatory process including pancreatitis. Retroperitoneum: No mass. Vasculature: No aneurysm or proximal large vessel thrombosis Pelvis: No mass, ascites or fluid collection. Bones/Soft Tissues: No acute osseous abnormality. Advanced degenerative changes L1-2 level with central canal narrowing Lower thorax: Unremarkable. Load Dropper (topogram) images: Unremarkable. IMPRESSION: Inflammatory change involving mesenteric fat left flank region with thickening of the fascia coronal image 67 and axial image 51. 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 Transcribe Date/Time: Dec 12 2022 2:00P Dictated by : YUNG RIOS MD This examination was interpreted and the report reviewed and electronically signed by: YUNG RIOS MD on Dec 12 2022 2:11PM EST [id number] Normal [facility] Comprehensive metabolic 2000 panelon 12-12-2022 Albumin [Mass/Vol] 4.3 g/dL Normal 3.9-4.9 [facility] Comment on above: Order Comment: Nelda jimenez Type: BLOOD SPECIMEN Ordering Facility: [facility] Address: [address] [place] [address] Performed By: #### 2 4323-8, 3040-3 #### [facility] CLIA [id number] [address] OF [facility] ALP [Catalytic activity/Vol] 151 U/L High 38-113 [facility] Comment on above: Order Comment: Nelda jimenez Type: BLOOD SPECIMEN Ordering Facility: [facility] Address: [address] [place] [address] Performed By: #### 2 4323-8, 0-3 #### [facility] CLIA [id number] [address] [place], [place] [id number] [place] [address] [place] ALT With P-5'-P [Catalytic activity/Vol] 115 U/L High 10-54 [facility] Comment on above: Order Comment: Nelda jimenez Type: BLOOD SPECIMEN Ordering Facility: [facility] Address: [address] [address] Performed By: #### 2 4323-8, 3040-3 #### [facility] CLIA [id number] [address] [place] [address] [place] Anion gap [Moles/Vol] 13 mmol/L Normal 9-18 [facility] Comment on above: Order Comment: Speci men Type: BLOOD SPECIMEN Ordering Facility: [facility] Address: [address] [place] [address] Performed By: #### 2 4323-8, 3040-3 #### [facility] CLIA [id number] [address] [place] [address] [place] AST With P-5'-P [Catalytic activity/Vol] 71 U/L High 14-40 [facility] Comment on above: Order Comment: Speci men Type: BLOOD SPECIMEN Ordering Facility: [facility] Address: [address] [place] [address] Performed By: #### 2 4323-8, 3040-3 #### [facility] CLIA [id number] [address] [place] [address] [place] Bilirubin [Mass/Vol] 0.5 mg/dL Normal 0.2-1.3 [facility] Comment on above: Order Comment: Speci men Type: BLOOD SPECIMEN Ordering Facility: [facility] Address: [address] [place] [address] Performed By: #### 2 4323-8, 3040-3 #### [facility] CLIA [id number] [address] [place] [address] [place] Calcium [Mass/Vol] 9.0 mg/dL Normal 8.5-10.2 [facility] Comment on above: Order Comment: Speci men Type: BLOOD SPECIMEN Ordering Facility: [facility] Address: [address] [place] [address] Performed By: #### 2 4323-8, 3040-3 #### [facility] CLIA [id number] [address] [place] [address] [place] Chloride [Moles/Vol] 99 mmol/L Normal 97-105 [facility] Comment on above: Order Comment: Speci men Type: BLOOD SPECIMEN Ordering Facility: [facility] Address: [address] [place] [address] Performed By: #### 2 4323-8, 3040-3 #### [facility] CLIA [id number] [address] [place] [address] [facility] CO2 [Moles/Vol] 23 mmol/L Normal 22-30 [facility] Comment on above: Order Comment: Speci men Type: BLOOD SPECIMEN Ordering Facility: [facility] Address: [address] [address] Performed By: #### 2 4323-8, 0-3 #### [facility] CLIA [id number] [address] [place] [address] [facility] Creatinine [Mass/Vol] 0.82 mg/dL Normal 0.73-1.22 [facility] Comment on above: Order Comment: Speci men Type: BLOOD SPECIMEN Ordering Facility: [facility] Address: [address] [place] [address] Performed By: #### 2 4323-8, 0-3 #### [facility] CLIA [id number] [address] [place] [address] ESTIMATED GLOMERULAR FILTRATION RATE 104 mL/min/1.73m??? Normal >=60 [facility] Comment on above: Order Comment: Speci men Type: BLOOD SPECIMEN Ordering Facility: [facility] Address: [address] [place] [address] Result Comment: Mary mated Glomerular Filtration Rate (eGFR) is calculated using the 2020 CKD-EPI creatinine equation. This equation utilizes serum creatinine, sex, and age as parameters. The creatinine assay has traceable calibration to isotope dilution-mass spectrometry. Refer to KDIGO guidelines for clinical interpretation. In patients with unstable renal function, e.g. those with acute kidney injury, the eGFR may not accurately reflect actual GFR. Performed By: #### 2 4323-8, 3040-3 #### [facility] CLIA [id number] [address] [place] [address] [place] Glucose [Mass/Vol] 220 mg/dL High 74-99 [facility] Comment on above: Order Comment: Nelda jimenez Type: BLOOD SPECIMEN Ordering Facility: [facility] Address: [address] [place] [address] Result Comment: The [place] Diabetes Association (ADA) provides guidance for cutoff values for fasting glucose and random glucose. The ADA defines fasting as no caloric intake for at least 8 hours. Fasting plasma glucose results between 100 to 125 mg/dL indicate increased risk for diabetes (prediabetes). Fasting plasma glucose results greater than or equal to 126 mg/dL meet the criteria for diagnosis of diabetes. In the absence of unequivocal hyperglycemia, results should be confirmed by repeat testing. In a patient with classic symptoms of hyperglycemia or hyperglycemic crisis, random plasma glucose results greater than or equal to 200 mg/dL meet the criteria for diagnosis of diabetes. Reference: Standards of Medical Care in Diabetes 2016, [place] [employer] Association. Diabetes Care. 2016.39(Suppl 1). Performed By: #### 2 4323-8, 0-3 #### [facility] CLIA [id number] [address] [place] [address] [place] Potassium [Moles/Vol] 3.9 mmol/L Normal 3.7-5.1 [facility] Comment on above: Order Comment: Nelda jimenez Type: BLOOD SPECIMEN Ordering Facility: [facility] Address: [address] [place] [address] Performed By: #### 2 4323-8, 0-3 #### [facility] CLIA [id number] [address] [place] [address] [place] Protein [Mass/Vol] 6.9 g/dL Normal 6.3-8.0 [facility] Comment on above: Order Comment: Nelda jimenez Type: BLOOD SPECIMEN Ordering Facility: [facility] Address: [address] [place] [address] Performed By: #### 2 4323-8, 3040-3 #### [facility] CLIA [id number] [address] [place] [address] [place] Sodium [Moles/Vol] 135 mmol/L Low 136-144 [facility] Comment on above: Order Comment: Speci men Type: BLOOD SPECIMEN Ordering Facility: [facility] Address: [address] [place] [address] Performed By: #### 2 4323-8, 3040-3 #### [facility] CLIA [id number] [address] [place] [address] [facility] Urea nitrogen [Mass/Vol] 10 mg/dL Normal 9-24 [facility] Comment on above: Order Comment: Speci men Type: BLOOD SPECIMEN Ordering Facility: [facility] Address: [address] [place] [id number] Performed By: #### 2 4323-8, 3040-3 #### [facility] CLIA [id number] [address] [place] [address] [facility] ED NOTEon 12-12-2022 ED NOTE HNO ID: [id number] Author: Kayleigh Quesada RN Service: Emergency Medicine Author Type: Registered Nurse Type: ED Notes Filed: 12/12/2022 2:31 PM Note Text: Patient is alert and oriented, denies any questions/concerns at this time. Patient verbalizes understanding of d/c instructions, medications and follow up care. Patient ambulates from department at this time with spouse. Normal [facility] ED NOTE HNO ID: [id number] Author: Emilia Alberto RN Service: Emergency Medicine Author Type: Registered Nurse Type: ED Notes Filed: 12/12/2022 12:10 PM Note Text: Pt c/o l flank/abd pain for approx 4 days. Pt reports nausea, denies urinary symptoms Normal [facility] ED PROV NOTEon 12-12-2022 ED PROV NOTE HNO ID: [id number] Author: Anjana Hunt MD Service: Emergency Medicine Author Type: Physician Type: ED Provider Notes Filed: 12/12/2022 2:26 PM Note Text: ED Provider Note Patient Name: Lisandro Garibay : 1965 SERVICE DATE: 12/12/22 History Patient presents with: Abdominal Pain Flank Pain HPI 56 male coming in with complaints of left-sided abdominal pain. History is provided by patient. Onset of symptoms about 4 days ago. Primarily left upper quadrant and the left side of the abdomen no back pain or flank pain. No fevers or chills, nausea has been intermittent but has been able to tolerate p.o. and reports normal appetite. Denies diarrhea or constipation. Takes gabapentin and tizanidine chronic pain symptoms, states that this is not alleviating his abdominal pain. Denies fall trauma or injury. Due to persisting symptoms and symptoms seeming to worsen today presents for ED assessment. That is sore achy with intermittent sharp burning pain. Nonradiating. No chest pain, cough or shortness of breath. No lightheadedness or dizziness. PAST MEDICAL HISTORY Diagnosis Date CAD (coronary artery disease) stenosis of LAD Chronic obstructive pulmonary disease (COPD) (HCC) DM (diabetes mellitus) (HCC) GERD (gastroesophageal reflux disease) Hypertension Obesity CANDELARIA (obstructive sleep apnea) RBBB Thyroid disease Tobacco abuse PAST SURGICAL HISTORY Procedure Laterality Date HEART CATHETERIZATION 11/2014 LAD 50-60% stenosis, RCA 40-50% HERNIA REPAIR HX 2000 LAPAROSCOPY SURG CHOLECYSTECTOMY 2000 PAST SURGICAL HISTORY OF dental extraction REVISE MEDIAN N/CARPAL TUNNEL SURG 05/18/15 left [facility] No family history on file. Social History Tobacco Use Smoking status: Every Day Packs/day: 1.00 Years: 34.00 Total pack years: 34.00 Types: Cigarettes Start date: 10/13/1980 Smokeless tobacco: Never Vaping Use Vaping Use: Never used Substance and Sexual Activity Alcohol use: No Drug use: No Sexual activity: Not on file ALLERGIES No Known Allergies Review of Systems As per HPI Physical Exam Vitals [12/12/22 1202] BP Pulse Temp Temp src Resp SpO2 Weight Height 159/86 78 36.2 ?C (97.2 ?F) Temporal Art 18 95 % 130.2 kg (287 lb) 1.753 m (5' 9 ) Physical Exam Patient overall non-toxic and in no obvious distress. Hemodynamically stable and afebrile Heart RRR w/o murmurs; Distal pulses intact Lungs CTAB Abd but soft. Tenderness palpation left upper quadrant without rebound or guarding. No peritoneal signs. He has no CVA tenderness or flank pain on exam. No fluid shift. No bruising or discoloration the abdomen or flanks. Patient moves all 4 extremities spontaneously and without deficit Diagnostic Testing ED Labs Ordered and Reviewed - No data to display Procedures ED Course / Clinical Impression Clinical Impressions as of 12/12/22 1423 Acute pancreatitis, unspecified complication status, unspecified pancreatitis type MDM / Disposition / Plan History and Record Review External record(s) reviewed: PDMP reviewed. MDM Patient is a 56-year-old male with history as above presenting with complaints of abd pain, LUQ. History and exam as above. Medical record reviewed. Additional encounters reviewed: Hospital admission to [facility] from July 2014 when he was admitted for pancreatitis believed to be related to hypertriglyceridemia. HPI obtained from, , medical record DDx considered: Differential gnosis concern at this time including colitis, pancreatitis, also consider possible SBO, obstruction. Less likely appendicitis disease no real right lower quadrant pain. He does not have any actual back pain or flank pain so less suspicion for ureterolithiasis, pyelonephritis, also has no urinary symptoms. ED COURSE: Patient is hemodynamically stable, afebrile. Does have transplant patient left upper quadrant. No peritoneal signs. Labs were obtained. Treated symptomatically with Zofran, morphine. On reevaluation he does note improvement of symptoms. CBC without leukocytosis. Hemoglobin, hematocrit are stable, MCV slightly elevated 100.6. Metabolic panel shows elevated LFTs, transaminitis with normal T. bili. He does have documented history of fatty liver disease. Blood glucose elevated 220 without secondary finding of DKA. Lipase is elevated at 65, and while not diagnostic of pancreatitis as it is not 3 times upper limit of normal clinically exam is concerning for pancreatitis we did elect to proceed with CT imaging of the abdomen and pelvis. I personally reviewed the radiographs and the radiology report. CT ABD/PEL W IVCON IMPRESSION: Inflammatory change involving mesenteric fat left flank region with thickening of the fascia coronal image 67 and axial image 51. Findings may related to underlying inflammatory process with leading consideration pancreatitis Advanced fatty enedelia (more content not included)... Normal [facility] Lipase SerPl-cCncon 12-13-19 23 Lipase [Catalytic activity/Vol] 65 U/L High 16-61 [facility] Comment on above: Order Comment: Speci men Type: BLOOD SPECIMEN Ordering Facility: [facility] Address: [address] [place] [address] Performed By: #### 2 4323-8, 3040-3 #### [facility] CLIA [id number] [address] [place] [address] [place] Creatinineon 07-08-2019 Creatinine [Mass/Vol] 0.96 mg/dL Normal 0.73-1.22 [facility] Comment on above: Performed By: #### C RET1, TSH, FT4 #### [facility] Routine Lab [address] [address] Creatinine [Mass/Vol] mg/dL Normal [facility] Comment on above: Performed By: #### C RET1, TSH, FT4 #### [facility] Lab [address] [address] Free T4on 07-08-2019 Free T4 [Mass/Vol] 1.2 ng/dL Normal 0.9-1.7 [facility] Comment on above: Performed By: #### C RET1, TSH, FT4 #### [facility] [address] [address] TSHon 07-08-2019 TSH Qn 1.540 uU/mL Normal 0.270-4.200 [facility] Comment on above: Performed By: #### C RET1, TSH, FT4 #### [facility] Lab [address] [id number] Encounters Encounter Date Encounter Type Care Provider Facility Start: 03-04-2024 End: 03-04-2024 ambulatory LUPE HUGHES Facility:[facility] Start: 03-04-2024 End: 03-04-2024 Subsequent hospital visit by physician Gricel [facility] Shashank Atwood Work Phone: Radiology Start: 02-22-2024 End: 02-22-2024 ambulatory LUPE HUGHES Facility:[facility] Start: 12-12-2022 End: 12-12-2022 Emergency department patient visit ULPE HUGHES Facility:[facility] Start: 08-12-2022 End: 08-12-2022 Patient encounter procedure Jon Bowers Work Phone: Podiatry Comment on above: Other diabetic neuro logical complication associated with type 2 diabetes mellitus (HCC) (Primary Dx); Ingrowing toenail; Diminished pulses in lower extremity Plan of Treatment Date Care Activity Detail Author Start: 03-30-2029 Urine microalbumin profile [facility] Start: 02-21-2025 Hepatitis B screening Urine Albumin:Creatinine Ratio [facility] Start: 02-21-2025 Hepatitis B surface antibody level LDL Cholesterol [facility] Start: 01-31-2024 Covid-19 Vaccine () Covid-19 Vaccine () [facility] Start: 01-31-2024 Influenza vaccination Influenza Vacc ine (#1) [facility] Start: 08-06-2023 Hepatitis B surface antibody level LDL CHOLESTEROL [facility] Start: 05-11-2023 Hemoglobin A1c measurement HbA1C [facility] Start: 02-05-2023 Hemoglobin A1c/Hemoglobin.total in Blood HBA1C [facility] Start: 06-01-2022 DEPRESSION ASSESSMENT DEPRESSION ASS ESSMENT [facility] Start: 2021 PROSTATE CANCER SCREENING DISCUSSION PROSTATE CANCER SCREENING DISCUSSION [facility] Start: 2021 Prostate specific antigen measurement Prostate Cancer Screening Discussion [facility] Start: 06-29-2021 COVID-19 VACCINE (4 - Booster for Moderna series) COVID-19 VACCINE (4 - Booster for Moderna series) [facility] Start: 2016 Influenza vaccination LUNG CANCER SC REENING [facility] Start: 2016 SHINGRIX VACCINE (1 of 2) SHINGRIX VACCINE (1 of 2) [facility] Start: 07-19-2015 PNEUMOCOCCAL (2 - PCV) PNEUMOCOCCAL (2 - PCV) [facility] Start: 07-19-2015 Pneumococcal vaccination Pneum ococcal Vaccine (2 of 2 - PCV) [facility] Start: 12-19-2011 COLOGUARD (FIT-DNA) COLOGUARD (FIT-D NA) [facility] Start: 12-19-2011 Colonoscopy COLONOSCOPY [facility] Start: 12-19-2011 COLORECTAL CANCER SCREENING COLORECTAL CANCER SCREENING [facility] Start: 12-19-[address] COLONOGRAPHY [facility] Start: 12-19-2011 FECAL OCCULT BLOOD FECAL OCCULT BLOO D [facility] Start: 12-19-2011 Screening for malign ant neoplasm of colon [facility] Start: 12-19-2011 SIGMOIDOSCOPY SIGMOIDOSCOPY [facility] Start: 1996 Zoledronic acid therapy ALPHA- 1 ANTITRYPSIN DEFICIENCY SCREENING [facility] Start: 1985 Hepatitis B Vaccine (1 of 3 - 19+ 3-dose series) Hepatitis B Vaccine (1 of 3 - 19+ 3-dose series) [facility] Start: 1984 ANNUAL PCP TEAM 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 ROBERTO DISEASE VISIT ANNUAL PCP TEAM CHRONIC DISEASE VISIT [facility] Start: 1984 Anxiety Screening Anxiety Screening [facility] Start: 1984 BP CONTROLLED (<130/80) BP CONTROLLE D (<130/80) [facility] Start: 1984 Depression Screening Depression Scre ening [facility] Start: 1984 HEPATITIS C SCREENING HEPATITIS C [facility] Start: 1984 Hepatitis C screening Hepatitis C [facility] Start: 1984 HIV SCREENING HIV SCREENING [facility] Start: 1984 HIV screening HIV Screening [facility] Start: 1976 3 comp foot exam completed DIABETIC FOOT EXAM [facility] Start: 1976 Diabetic foot examination Diabetic Foot Exam [facility] Start: 1976 Glaucoma screening Dilated Retinal E xam [facility] Start: 1976 Hepatitis B screening URINE ALBUMIN:CREATININE RATIO [facility] Start: 1976 Hepatitis C antibody , confirmatory test DILATED RETINAL EXAM [facility] Start: 1966 HEPATITIS B (1 of 3 - 3-dose series) HEPATITIS B (1 of 3 - 3-dose series) [facility] End: 08-13-2023 PVR ANK PRESS [facility] PVR ANK PRESS [facility] Routine Other diabetic neurological complication associated with type 2 diabetes mellitus (HCC) Ingrowing toenail Diminished pulses in lower extremity 1 Occurrences starting 08/12/2022 until 08/13/2023 [facility] Work Phone: Comment on above: 1 Occurrences starti ng 08/12/2022 until 08/13[facility]20[facility] Immunization Date Immunization Notes Care Provider Lili matthews 03-01-2023 influenza virus vacc ine, unspecified formulation [facility] Work Phone: [facility] 03-30-2019 tetanus toxoid, redu adonis diphtheria toxoid, and acellular pertussis vaccine, adsorbed Jon Bowers Work Phone: [facility] Work Phone: 07-19-2014 pneumococcal polysaccharide vaccine, 23 valent Jon Bowers Work Phone: [facility] 06-02-2014 influenza, seasonal, injectable Jon Bowers Work Phone: [facility] Work Phone: Payers Date Payer Category Payer Unknown RAJI OSORIO X [id number] 2023-Present [phone] [address] [address] [place] [address] HMO [id number] 2023 Unknown [id number] 2022 Medicaid [employer] [employer] [employer] [id number] 2022-Present [phone] [address] [place] [address] Medicaid [id number] 2022 Medicaid [id number] Social History Date Type Detail Facility Start[facility]13-[facility] Start: 10-13-1980 History of tobacco use Cigarette Smo ker [facility] Start: 08-06-2015 End: 12-13-2022 Cigarettes smoked current (pack per day) - Reported 1 [facility] Start: 08-06-2015 Tobacco use and exposure Smoke less tobacco non-user [facility] Start: 08-12-2022 End: 12-12-2022 Alcohol intake Current non-drinker of alcohol (finding) [facility] Start: 1965 Sex Assigned At Not on file [facility] Start: 12-12-2022 End: 12-13-2022 Tobacco use panel [facility] National Score (1-10 0), lower number is lower risk 53 [facility] History of Present illness Narrative 03-04-2024 Merari Zhao RT(R) - 03/04/2024 8:40 AM EDT Note Date & Type Note Facility 03-04-2024 History of Presen t illness Narrative Radiology Service Progress Note PATIENT NAME: Lisandro Garibay DATE OF SERVICE: March 04, 2024 TIME: 9:58 AM PATIENT IDENTITY VERIFICATION COMPLETED USING TWO (2) IDENTIFIERS: Name and Date of confirmed by patient verbally. FALL SCREENING: Has the patient had 2 falls in the last year or 1 fall with injury or currently using an Ambulatory Assistive Device (Walker, Cane, Wheelchair, Crutches, etc.)? No PATIENT GENDER DATA: Male PATIENT RELEVANT IMPLANT DATA REVIEWED: Not Applicable PATIENT PRESENTS WITH AN IMPLANTABLE OR ATTACHED STAFF SONOGRAPHER: No RADIOLOGY DEPARTMENT: General X-ray: Exam(s) Completed: Upper Extremity X-Ray(s): Hand, right PERIPHERAL IV DATA: Not applicable SIGNED BY: RT Lisandro(Luisa) March 04, 2024 9:58 AM documented in this encounter [facility] Progress note 03-04-2024 Note Date & Type Note Facility 03-04-2024 Note HNO ID: [id number] Author: MERARI ZHAO RT(Luisa) Service: ? Author Type: Technologist Type: Progress Notes Filed: 03/04/2024 09:58 Note Text: Radiology Service Progress Note PATIENT NAME: Lisandro Garibay DATE OF SERVICE: March 04, 2024 TIME: 9:58 AM PATIENT IDENTITY VERIFICATION COMPLETED USING TWO (2) IDENTIFIERS: Name and Date of confirmed by patient verbally. FALL SCREENING: Has the patient had 2 falls in the last year or 1 fall with injury or currently using an Ambulatory Assistive Device (Walker, Cane, Wheelchair, Crutches, etc.)? No PATIENT GENDER DATA: Male PATIENT RELEVANT IMPLANT DATA REVIEWED: Not Applicable PATIENT PRESENTS WITH AN IMPLANTABLE OR ATTACHED STAFF SONOGRAPHER: No RADIOLOGY DEPARTMENT: General X-ray: Exam(s) Completed: Upper Extremity X-Ray(s): Hand, right PERIPHERAL IV DATA: Not applicable SIGNED BY: RT Lisandro(R) March 04, 2024 9:58 AM [facility] Instructions 08-12-2022 Patient Instructions Note Date & Type Note Facility 08-12-2022 Instructions Jon Bowers - 08/12/2022 10:11 AM EDT Diabetes [...] (or decreased sensation in your feet) a machine grinder should always cut your toenails. Be Careful [...] Go to your health care provider or machine grinder to treat these conditions. documented in this encounter [facility] History of Present illness Narrative 08-12-2022 Jon Bowers - 08/12/2022 10:03 AM Yobany Novak RN - 08/12/2022 9:27 AM EDT Note Date & Type Note Facility 08-12-2022 History of Presen t illness Narrative Consultation requested by Dr. Gunderson for an opinion regarding diabetic foot exam. [...] Objective: Patient presents to clinic ambulating in [facility] Constitutional: Pt is a well developed [...] encouraged 5. Continue with neurontin for neuropathy Jon Bowers DPM AMB ROOMING INTAKE FLOWSHEET DATA [...] history of neuropathy. documented in this encounter [facility] Evaluation note Note Date & Type Note Facility Evaluation note Diagnosis Other diabetic neurological complication associated with type 2 diabetes mellitus (HCC)- Primary Ingrowing toenail Ingrowing nail Diminished pulses in lower extremity Other symptoms involving cardiovascular system documented in this encounter [facility] Reason for referral (narrative) Outpatient Procedure (Routine) - Pending Review Note Date & Type Note Facility Reason for referral (narrati ve) Specialty Diagnoses / Procedures Referred By Maya mack [facility] Diagnoses Other diabetic neurological complication associated with type 2 diabetes mellitus (HCC) Ingrowing toenail Diminished pulses in lower extremity Procedures PVR ANK PRESS [facility] NON-INVAS PHYSIOLOGIC STD EXTREMITY ART 2 LEVEL Jon Bowers [address] [place] [address] [facility] [address] [place] [address] Referral ID Status Reason Start Date Expiration Date Visits Requested Visits Authorized [id number] Pending Review Auto-Generat ed Referral 08/12/2022 08/12/2023 1 1 [facility] Summary Purpose Family History No Family History Records FoundNo Family History Records FoundNo Family History Records Found Advance Directives No Advanced Directives Records FoundNo Advanced Directives Records FoundNo Advanced Directives Records Found Additional Source Comments (unrecognized sect ion and content) No Status Records FoundNo Status Records FoundNo Status Records Found INFORMATION SOURCE (unrecogn ized section and content) DATE CREATED AUTHOR 07/08/2019 [facility] DATE CREATED AUTHOR AUTHOR'S ORGANIZ ATION 12/13/2022 [facility] DATE CREATED AUTHOR AUTHOR'S ORGANIZ ATION 03/09/2024 [facility] Source Comments (unrecognize d section and content) In the event this informatio n is protected by the Federal Confidentiality of Alcohol and Drug Abuse Patient Records regulations: The Federal rules restrict any use of the information to criminally investigate or prosecute any alcohol or drug abuse patient.[facility] event this information is protected by the Federal Confidentiality of Alcohol and Drug Abuse Patient Records regulations: The Federal rules restrict any use of the information to criminally investigate or prosecute any alcohol or drug abuse patient.[facility] Reason for Visit (unrecogniz ed section and content) Reason Comments New Diabetic Foot Check Specialty Diagnoses / Procedures Referred By Maya t Referred To Contact Radiology / RADIO GEN [facility] Diagnoses Pain in right hand Procedures XR GENERAL 7 Teri Gunderson NP [address] [place] [address] Radio General [facility] [address] [place] [address] Referral ID Status Reason Start Date Expiration Date Visits Requested Visits Authorized [id number] Denied OON Notification Letter 03/04/2024 06/02/2024 1 0 Care Teams (unrecognized sec tion and content) [employer] Worker Relationship Specialty Start Date End Date Lupe Hughes [address] [place], [place] [address] PCP - General 04/17/15 Teri Gunderson NP [address] [place], [place] [address] Referring Family Medicine 08/05/22 [employer] Worker Relationship Specialty Start Date End Date Lupe Hughes CNP [address] [place] [id number] PCP - General 04/17/15 Teri Gunderson NP [address] [place] [id number] Referring Family Medicine 08/05/22 FOR RECORDS PERTAINING TO PATIENTS WHO ARE [...] BE BASED ON THE PRIMARY CLINICAL RECORDS. [employer] [facility]. provides no warranty or guarantee of the accuracy or completeness of information in this document.
--- NOTE | 2024-03-23 07:42 | PRE.ANES_ITS ---
ASA Classification* ASA Classification ASA Classification: 3 Assessment & Plan Anesthesia* Anesthesia Assessment Anesthesia Assessment: Discussed sedation and/or anesthesia options, risks, benefits, and alternatives with patient/parents/legal guardian/POA. Questions invited. The patient/parents/legal guardian/POA seems to understand and agrees to proceed with anesthesia plan. Reviewed the physical assessment, medical history, allergy history and patient home medications list prior to surgery/procedure/anesthetic and documented any changes. Performed airway and anesthesia risk assessments. Anesthesia Type Anesthesia Type: Block (Jerald Block) Anesthesia Focused Assessment* Temperature: 97.5 F Pulse Rate: 64 Blood Pressure: 116/75 Respiratory Rate: 17 Pulse Ox: 90 Airway Assessment Mouth opens: >3 cm Mallampati Score: II Focused Labs Anesthesia Preop lab: CBC WBC 5.0 K/mm3 (4.4-11.0) 03/14/24 05:03 RBC 4.67 M/mm3 (4.6-6.2) 03/14/24 05:03 Hgb 16.0 g/dL (13.0-16.5) 03/14/24 05:03 Hct 45.9 % (40-54) 03/14/24 05:03 Plt Count 110 K/mm3 (150-450) L 03/14/24 05:03 CHEMISTRY Potassium 3.4 mmol/L (3.5-5.1) L 03/14/24 05:03 Sodium 138 mmol/L (136-145) 03/14/24 05:03 BUN 14 mg/dL (7-18) 03/14/24 05:03 Creatinine 0.79 mg/dL (0.70-1.30) 03/14/24 05:03 Glucose 149 mg/dL (74-106) H 03/14/24 05:03 POC Glucose 145 mg/dL (74-106) H 03/15/24 10:59 TSH 1.900 uIU/mL (0.358-3.740) 03/08/24 06:06 COAG PT 14.2 SECONDS (11.7-14.9) 03/06/24 15:50 Pre-Assessment Diagnosis/Proposed Procedure Planned Operative Procedure(s): Excision right hand wound, delayed primary closure Anesthesia History Anesthesia History - admiralty lawyer: Anesthesia History - admiralty lawyer Hx Hospitalization Yes 03/22/24 10:00 Any Problems With Anesthesia No 03/22/24 10:00 Cholinesterase deficiency No 03/22/24 10:00 You/Your Family Experience No 03/22/24 10:00 fever (hyperthermia) with Relationship Recent Exposure to Contagious No 03/23/24 07:40 Disease Does patient have nerve No 03/22/24 10:00 stimulator Patient instructed to have device shut off --Does patient have Pacemaker No 03/23/24 07:40 or ICD? When Was Last Pacemaker Check QUESTION #4 FULL TEXT: You/Your Family Experience fever (hyperthermia) with Anesthesia Last Oral Intake Last Oral intake: Last Oral Intake NPO since 06:00 03/23/24 07:40 Meds taken in AM with sips of Yes 03/23/24 07:40 water? Meds patient instructed to see med list 03/23/24 07:40 take am of surgery PONV PONV - admiralty lawyer: PONV - admiralty lawyer Female No 03/22/24 10:00 HX of Motion Sickness No 03/22/24 10:00 HX of N/V After Surgery No 03/22/24 10:00 Non-Smoker No 03/22/24 10:00 Duration of Surgery greater Yes 03/22/24 10:00 than 60 minutes Number of Risk Factors 1 03/22/24 10:00 PONV Score Low Risk 03/22/24 10:00 Height & Weight Height & Weight: Anesthesia: Height & Weight Height 5 ft 9 in 03/23/24 07:40 Weight: 115.212 kg 03/23/24 07:40 Body Mass Index (BMI) 37.5 03/23/24 07:40 Respiratory Assessment Respiratory Assessment - admiralty lawyer: Respiratory Tract Infection Hx - admiralty lawyer Hx Respiratory Tract Infection No 03/22/24 10:00 STOP Sleep Apnea STOP Sleep Apnea - admiralty lawyer: STOP Sleep Apnea - admiralty lawyer Hx Hypertension Yes: CONTROLLED ON MED 03/22/24 10:00 Hx Sleep Apnea Yes 03/22/24 10:00 CPAP No 03/22/24 10:00 BIPAP Yes 03/22/24 10:00 Do you snore loudly (louder than talking or can be heard Do you often feel tired/ fatigued/ sleepy during daytime? Has anyone observed you stop breathing during sleep? STOP Results Positive 03/22/24 10:00 QUESTION #5 FULL TEXT : Do you snore loudly (louder than talking or can be heard through closed doors)? Tobacco Use History Tobacco Use History - admiralty lawyer: Tobacco Use History - admiralty lawyer Tobacco Use Smoking Status Current every day smoker 03/22/24 10:00 Hx Tobacco Use Yes 03/22/24 10:00 Years Smoking Packs Smoked per Day Smoking Cessation Date was within the last 15 years Hx Smoking Cessation Date Hx Smoking Cessation No 03/22/24 10:00 Counseling Hematologic Medial History Hematologic Hx - admiralty lawyer: Hematologic Medical Hx - audiometrist Hx of Blood Transfusion No 03/22/24 10:00 Hx of Transfusion in last 3 No 03/22/24 10:00 Months Date of Last Transfusion (if within last 3 months) Ever experience any problems No 03/22/24 10:00 with transfusion(s)? Specify any problems Hx of Preganancy in last 3 N/A 03/22/24 10:00 Months Nurse Filling Out Transfusion VCHRISTIN 03/22/24 10:00 & Questions: Date: 03/22/24 03/22/24 10:00 Time: 10:01 03/22/24 10:00 Patient unable to answer at this time (ie. confused, unrespo /Reproduction History /Reproductive History - admiralty lawyer: /Reproductive Hx- admiralty lawyer Hx Now No 03/22/24 10:00 Gestational Age (in weeks): EDC: Hx Hx Para Hx Section SAB No 03/22/24 10:00 Active Medications Active Medications: Current Medications Generic Name Dose Route Start Last Admin Trade Name Freq PRN Reason Stop Dose Admin Cefazolin Sodium 2 gm/ N/A 20 mls @ 400 mls/hr 03/23/24 13:20 IV 03/23/24 13:22 PREOP ONE PFSH Medical History Insulin dependent diabetes mellitus Arthritis Kidney stone TIA (transient ischemic attack) Seizures Gastric reflux Hypertension History of CVA in adulthood Antiplatelet or antithrombotic long-term use Flexor tenosynovitis of finger Wears glasses No natural teeth Diabetes Thyroid disease High cholesterol Blackout History of GI bleed Smoker BiPAP (biphasic positive airway pressure) dependence Sleep apnea Shortness of breath on exertion Chronic cough History of edema Leg cramps History of stress test Cardiology follow-up encounter Elevated LFTs Back pain Dorsalgia of thoracolumbar region Patellofemoral arthritis of right knee Bilateral knee pain Situational syncope Chest pain, unspecified Type 2 diabetes mellitus Essential hypertension Pneumonia due to other streptococci Atherosclerosis of coronary artery of [place] heart without angina pectoris Right bundle-branch block Gastroesophageal reflux disease Hypertriglyceridemia Obstructive sleep apnea Body mass index (BMI) 35 or more Tobacco abuse COPD (chronic obstructive pulmonary disease) MASON (dyspnea on exertion) Morbid obesity due to excess calories Localized edema Long-term use of high-risk medication Hyperlipidemia Difficulty swallowing Stage 2 moderate COPD by GOLD classification Sinus drainage Home Medications ?Medication ?Instructions ?Recorded ?Last Taken ?Type albuterol sulfate 90 mcg/actuation 6.7 g IH PRN PRN Wheezing 12/06/14 Unknown History aerosol inhaler ergocalciferol (vitamin D2) 1,250 50,000 unit PO Q7D 12/06/14 03/22/24 History mcg (50,000 unit) capsule fluticasone propionate 50 1 spray NASAL DAILY 05/05/16 03/22/24 History mcg/actuation nasal spray,suspension aspirin 81 mg tablet,delayed 81 mg PO DAILY 08/11/19 03/20/24 History release duloxetine 60 mg capsule,delayed 60 mg PO DAILY 08/11/19 03/22/24 History release levothyroxine 50 mcg tablet 75 mcg PO DAILY 08/11/19 03/23/24 History losartan 50 mg tablet 25 mg PO QDAY 08/11/19 03/22/24 History mirtazapine 15 mg tablet 45 mg PO QHS 08/11/19 03/22/24 History multivitamin 1 cap PO DAILY 08/11/19 03/22/24 History nitroglycerin 0.4 mg sublingual 0.4 mg sublingual ONCE PRN chest 08/11/19 Unknown History tablet (Nitrostat) pain budesonide-formoterol HFA 160 2 puff inhalation BID #10.2 grams 12/05/19 03/23/24 Rx mcg-4.5 mcg/actuation aerosol inhaler clopidogrel 75 mg tablet 75 mg PO QDAY #90 tabs 12/29/19 03/22/24 Rx furosemide 40 mg tablet (Lasix) 60 mg PO DAILY 11/15/20 03/22/24 History metformin 1,000 mg tablet 1,000 mg PO BID 11/15/20 03/22/24 History isosorbide mononitrate 60 mg 30 mg (1/2 x 60 mg) PO BID #90 tabs 12/03/21 03/23/24 Rx tablet,extended release 24 hr omeprazole 40 mg capsule,delayed 40 mg PO DAILY 1 month #30 caps 06/05/23 03/23/24 Rx release rosuvastatin 20 mg tablet 20 mg PO QHS 1 month #30 tabs 06/05/23 03/22/24 Rx empagliflozin 25 mg tablet 25 mg PO DAILY #30 tabs 11/24/23 03/22/24 Rx (Jardiance) fluticasone fur. 100 mcg-umeclid 1 ea inhalation DAILY copd 03/07/24 03/23/24 History 62.5 mcg-vilant 25 mcg inhalat.powder (Trelegy Ellipta) gabapentin 800 mg tablet 800 mg PO TID pain 03/07/24 03/22/24 History doxycycline hyclate 100 mg capsule 100 mg PO BID 22 days #44 caps 03/15/24 Unknown Rx doxycycline monohydrate 100 mg 100 mg PO BID 03/22/24 03/22/24 History capsule dulaglutide 1.5 mg/0.5 mL 1.5 mg subcut QWEEK 03/22/24 03/21/24 History subcutaneous pen injector (Trulicity) insulin glargine 100 unit/mL (3 1 unit subcut QHS PRN IF NEEDED 03/22/24 03/21/24 History mL) subcutaneous pen (Basaglar FOR BS KwikVasquez U-100 Insulin) Allergy/AdvReac Type Severity Reaction Status Date / Time No Known Allergies Allergy Verified 03/23/24 07:38 Family History Father CVA (cerebral vascular accident) Brother CAD (coronary artery disease) Diabetes Mother COPD (chronic obstructive pulmonary disease) Sarcoidosis Surgical History History of cardiac catheterization S/P laparoscopic cholecystectomy H/O umbilical hernia repair History of coronary artery stent placement (~03/25/16) History of carpal tunnel surgery of right wrist History of left heart catheterization Social History household members: spouse current occupational status: disabled Smoking Status: Current every day smoker tobacco type: cigarettes Tobacco: How many years used: 30 second hand exposure: Yes alcohol intake: never substance use type: does not use caffeine: Yes Type: coffee Number of servings: 2 what type of physical activity do you participate in: none Review of Systems (Anesthesia) ROS Narrative System reviewed and no additional complaints, except as documented.
[2024-03-23 08:00] LABS: Bedside Glucose 116 mg/dL (74-106)
[2024-03-23] MEDS: Ipratropium/Albuterol Sulfate 3 ML AMPUL.NEB INHALATION (08:09)
--- NOTE | 2024-03-23 08:38 | HP.PCM.SX_ITS ---
HPI - General HPI Narrative ONELIA REED, is a 58 M who presents with right hand wound. Current Encounter (DATE OF SURGERY H&P UPDATE): I saw and examined the patient this morning in pre-operative holding. We discussed risks and benefits of today's surgery and they would like to proceed. NO CHANGE in health history since last seen and evaluated. Ready to proceed with surgery. [facility] Medical History Insulin dependent diabetes mellitus Arthritis Kidney stone TIA (transient ischemic attack) Seizures Gastric reflux Hypertension History of CVA in adulthood Antiplatelet or antithrombotic long-term use Flexor tenosynovitis of finger Wears glasses No natural teeth Diabetes Thyroid disease High cholesterol Blackout History of GI bleed Smoker BiPAP (biphasic positive airway pressure) dependence Sleep apnea Shortness of breath on exertion Chronic cough History of edema Leg cramps History of stress test Cardiology follow-up encounter Elevated LFTs Back pain Dorsalgia of thoracolumbar region Patellofemoral arthritis of right knee Bilateral knee pain Situational syncope Chest pain, unspecified Type 2 diabetes mellitus Essential hypertension Pneumonia due to other streptococci Atherosclerosis of coronary artery of [place] heart without angina pectoris Right bundle-branch block Gastroesophageal reflux disease Hypertriglyceridemia Obstructive sleep apnea Body mass index (BMI) 35 or more Tobacco abuse COPD (chronic obstructive pulmonary disease) MASON (dyspnea on exertion) Morbid obesity due to excess calories Localized edema Long-term use of high-risk medication Hyperlipidemia Difficulty swallowing Stage 2 moderate COPD by GOLD classification Sinus drainage Home Medications ?Medication ?Instructions ?Recorded ?Last Taken ?Type albuterol sulfate 90 mcg/actuation 6.7 g IH PRN PRN Wheezing 12/06/14 Unknown History aerosol inhaler ergocalciferol (vitamin D2) 1,250 50,000 unit PO Q7D 12/06/14 03/22/24 History mcg (50,000 unit) capsule fluticasone propionate 50 1 spray NASAL DAILY 05/05/16 03/22/24 History mcg/actuation nasal spray,suspension aspirin 81 mg tablet,delayed 81 mg PO DAILY 08/11/19 03/20/24 History release duloxetine 60 mg capsule,delayed 60 mg PO DAILY 08/11/19 03/22/24 History release levothyroxine 50 mcg tablet 75 mcg PO DAILY 08/11/19 03/23/24 History losartan 50 mg tablet 25 mg PO QDAY 08/11/19 03/22/24 History mirtazapine 15 mg tablet 45 mg PO QHS 08/11/19 03/22/24 History multivitamin 1 cap PO DAILY 08/11/19 03/22/24 History nitroglycerin 0.4 mg sublingual 0.4 mg sublingual ONCE PRN chest 08/11/19 Unknown History tablet (Nitrostat) pain budesonide-formoterol HFA 160 2 puff inhalation BID #10.2 grams 12/05/19 03/23/24 Rx mcg-4.5 mcg/actuation aerosol inhaler clopidogrel 75 mg tablet 75 mg PO QDAY #90 tabs 12/29/19 03/22/24 Rx furosemide 40 mg tablet (Lasix) 60 mg PO DAILY 11/15/20 03/22/24 History metformin 1,000 mg tablet 1,000 mg PO BID 11/15/20 03/22/24 History isosorbide mononitrate 60 mg 30 mg (1/2 x 60 mg) PO BID #90 tabs 12/03/21 03/23/24 Rx tablet,extended release 24 hr omeprazole 40 mg capsule,delayed 40 mg PO DAILY 1 month #30 caps 06/05/23 03/23/24 Rx release rosuvastatin 20 mg tablet 20 mg PO QHS 1 month #30 tabs 06/05/23 03/22/24 Rx empagliflozin 25 mg tablet 25 mg PO DAILY #30 tabs 11/24/23 03/22/24 Rx (Jardiance) fluticasone fur. 100 mcg-umeclid 1 ea inhalation DAILY copd 03/07/24 03/23/24 History 62.5 mcg-vilant 25 mcg inhalat.powder (Trelegy Ellipta) gabapentin 800 mg tablet 800 mg PO TID pain 03/07/24 03/22/24 History doxycycline hyclate 100 mg capsule 100 mg PO BID 22 days #44 caps 03/15/24 Unknown Rx doxycycline monohydrate 100 mg 100 mg PO BID 03/22/24 03/22/24 History capsule dulaglutide 1.5 mg/0.5 mL 1.5 mg subcut QWEEK 03/22/24 03/21/24 History subcutaneous pen injector (Trulicity) insulin glargine 100 unit/mL (3 1 unit subcut QHS PRN IF NEEDED 03/22/24 03/21/24 History mL) subcutaneous pen (Basaglar FOR BS KwikPen U-100 Insulin) Allergy/AdvReac Type Severity Reaction Status Date / Time No Known Allergies Allergy Verified 03/23/24 07:38 Family History Father CVA (cerebral vascular accident) Brother CAD (coronary artery disease) Diabetes Mother COPD (chronic obstructive pulmonary disease) Sarcoidosis Surgical History History of cardiac catheterization S/P laparoscopic cholecystectomy H/O umbilical hernia repair History of coronary artery stent placement (~03/25/16) History of carpal tunnel surgery of right wrist History of left heart catheterization Social History household members: spouse current occupational status: disabled Smoking Status: Current every day smoker tobacco type: cigarettes Tobacco: How many years used: 30 second hand exposure: Yes alcohol intake: never substance use type: does not use caffeine: Yes Type: coffee Number of servings: 2 what type of physical activity do you participate in: none Vital Signs Vital Signs Vital Signs: 03/23/24 07:40 03/23/24 07:40 03/23/24 07:44 Temperature 97.5 F L 97.5 F L Temperature Source Temporal Pulse Rate 64 64 Respiratory Rate 17 17 Respiratory Pattern Normal Blood Pressure 116/75 116/75 Blood Pressure Mean 88 Blood Pressure Source Monitor Blood Pressure Position Semi-Fowlers Blood Pressure Location Left Arm Pulse Ox 90 90 Oxygen Delivery Method Room Air 03/23/24 08:10 Temperature Temperature Source Pulse Rate 67 Respiratory Rate 20 H Respiratory Pattern Normal Blood Pressure Blood Pressure Mean Blood Pressure Source Blood Pressure Position Blood Pressure Location Pulse Ox Oxygen Delivery Method Weight Weight: 254 lb Body Mass Index (BMI) 37.5 Physical Exam Narrative Inspection: no purulence from incisions, limited tenderness to palpation. Exam improved greatly. The incision over the A1 bruce of the long finger as fibrinous exudate on the sides of the flaps and exposed flexor tendon at the base of the wound. Motor: Able to bend and extend all MP, PIP, and DIP joints, however stiffness in the right long finger and unable to make a complete fist secondary to wounds, stiffness, and swelling. Sensory: Intact to light touch on the radial and ulnar borders. Vascular: Finger tips are warm and well perfused with <2 second capillary refill. Results Lab / Micro Data Labs: Laboratory Results - last 24 hr 03/23/24 07:37: POC Glucose 116 H Assessment & Plan Assessment/Plan (1) Septic arthritis of interphalangeal joint of finger of right hand: (2) Open wound, hand: PLAN: Plan I talked the patient extensively about the risks of surgery, including bleeding, infection, damage to surrounding structures, surgical site dehiscence and wound formation, need for wound care, need for repeat operations, failure to obtain the desired result, DVT/PE, and the risks of anesthesia including . The benefits and alternatives of this surgery were also discussed. All of their questions were answered, and they agreed to proceed with surgery. INTERVAL H&P PLAN, DATE OF SURGERY: We will proceed with surgery today.
[2024-03-23] MEDS: Cefazolin 2 GM in Syringe IV (09:01)
--- NOTE | 2024-03-23 09:04 | OP.PCM_ITS ---
Operative Report (Standard) Operative Information Surgery/Procedure Performed:: Right hand debridement and delayed primary closure right hand wound Surgeon: Sergio Edwards Date of Procedure: 03/23/24 Procedure Start Time: :21 Procedure Stop Time: :46 Pre-Operative Diagnosis: Right hand wound 2/2 flexor tenosynovitis Post-Operative Diagnosis: same Select all DRAINS/GRAFTS/IMPLANTS that apply:: None Type of Anesthesia: Other (MANUEL block ) Estimated Blood Loss: minimal Fluids Replaced: none Specimen collected: No Description of surgery: PRE-OPERATIVE DIAGNOSIS: Right hand and right long finger wounds 2/2 flexor tenosynovitis POST-OPERATIVE DIAGNOSIS: same PROCEDURE PERFORMED: 1) Sharp excision of 2 x 4 cm and wound (necrotic fat and fibrinous exudate), CPT 59642 2) Delayed primary closure of surgical wound on right volar hand, CPT 72938 INDICATIONS: Lisandro Quan is a 58 YO male with right hand wound s/p i&D for flexor tenosynovitis. Presents today for delayed primary closure and debridement . I talked the patient extensively about the risks of surgery, including bleeding, infection, damage to surrounding structures, surgical site dehiscence and wound formation, need for wound care, need for repeat operations, failure to obtain the desired result. The benefits and alternatives of this surgery were also discussed. All of their questions were answered, and they agreed to proceed with surgery. OPERATIVE DETAILS: Patient was correctly identified in preoperative holding and taken back to the operating room where he was administered a [place]bern block (tour niquet on the arm). Once appropriate level of anesthesia was obtained, he was prepped and draped in sterile fashion and a timeout was performed. The volar right hand wound had fibrinous exudate on the edges and was significantly dehisced/open with exposed tendon at the base. Under loupe magnification, a 15 blade scalpel was used to carefully excise the fibrinous exudate and the necrotic tissue for an excision of 2 x 4 cm along the Shakira flaps. Hemostasis was obtained with bipolar. After 20 minutes the tourniquet was let down and the wound was irrigated with 900 cc of Irrisept. The Shakira flap was then advanced into position over the tendon and the volar palm at the level of the A1 bruce and sutured into place with a 3-0 nylon suture for delayed primary closure of the surgical wound. The dressings were then changed (silver alginate packing in the wound over the long finger PIP joint, the volar Shakira incisions on the right long finger, and the carpal tunnel incision porti on that was still open). 10 cc of 0.25% bupivacaine was then used for a local block. Patient tolerated the procedure well and was awakened and taken to the PACU in stable condition. ASA: 3 POST-OPERATIVE PLAN: F/u in the wound care center on 28 Mar 2024. Continue BID Dial soap soaks and packing with silver aglinate (Aquacel Ag) Surgical Findings: Healthy wound bed once necrotic tissue edges excised. Tip of Scarlet flap re- advanced nicely into bishop paiute position for partial closure of the tendon. No signs of infection. [employer] synthetic staple extruder: Yes [employer] Facilitator: Vickie Austin Tasks completed by fist assist: Retracting Complications Complications: No Admit VTE Documentation VTE Mechan Device Prophylaxis: SCD's
[2024-03-23] MEDS: Lidocaine 0.5% (50 ml) 50 ML Vial (09:19)
[2024-03-23] MEDS: Bupiv/Epi 0.25% 30 ML Vial (09:42)
--- NOTE | 2024-03-23 09:53 | PCM.POST.ANE ---
Anesthesia: Postop Eval I Current Vital Signs Temperature: 97.7 F Pulse Rate: 63 Blood Pressure: 128/70 Respiratory Rate: 20 Pulse Ox: 93 Assessment Airway patent: Yes Spontaneous unlabored respirations: Yes nausea: No Vomiting: No Anesthesia Complication: No Fluid Hydration Crystalloid volume administer (ml): 0 Total IV fluid infused: 0 Progress Note Anesthesia document: Postop Eval 1 completed: Yes
--- NOTE | 2024-03-23 13:50 | POSTOPAN2_ITS ---
Anesthesia Postop Eval I Sum Postop Eval Completion status Anesthesia document: Postop Eval 1 completed: Yes Anesthesia Postop Eval I Summary Anesthesia Postop Eval I Summary: Anesthesia Postop Eval I: Assessment Summary Airway patent Yes 03/23/24 09:53 [email or web address] [email or web address] Spontaneous unlabored Yes 03/23/24 09:53 FLUE [email or web address] respirations Mental status nausea No 03/23/24 09:53 FLUE DUST [email or web address] Vomiting No 03/23/24 09:53 FLUE DUST [email or web address] Anesthesia Postop Eval I: Fluid Summary Crystalloid volume administer 0 03/23/24 09:53 FLUE [email or web address] (ml) Colloids volume administered ( ml) Blood Product volume administered (ml) Total IV fluid infused 0 03/23/24 09:53 FLUE DUST [email or web address] Anesthesia Postop Eval I: Summary Notes Anesthesia Complication No 03/23/24 09:53 FLUE DUST [email or web address] Anesthesia Complication Comment: Post-operative progress note Anesthesia: Postop Eval II Evaluation Mental status: Awake and Calm Pain Level: 1 nausea: No Vomiting: No
--- NOTE | 2024-03-23 13:50 | PCM.POSTANE2 ---
Anesthesia Postop Eval I Sum Postop Eval Completion status Anesthesia document: Postop Eval 1 completed: Yes Anesthesia Postop Eval I Summary Anesthesia Postop Eval I Summary: Anesthesia Postop Eval I: Assessment Summary Airway patent Yes 03/23/24 09:53 [email or web address] [email or web address] Spontaneous unlabored Yes 03/23/24 09:53 OVEN [email or web address] respirations Mental status nausea No 03/23/24 09:53 OVEN [email or web address] Vomiting No 03/23/24 09:53 OVEN [email or web address] Anesthesia Postop Eval I: Fluid Summary Crystalloid volume administer 0 03/23/24 09:53 OVEN [email or web address] (ml) Colloids volume administered ( ml) Blood Product volume administered (ml) Total IV fluid infused 0 03/23/24 09:53 OVEN [email or web address] Anesthesia Postop Eval I: Summary Notes Anesthesia Complication No 03/23/24 09:53 OVEN [email or web address] Anesthesia Complication Comment: Post-operative progress note Anesthesia: Postop Eval II Evaluation Mental status: Awake and Calm Pain Level: 1 nausea: No Vomiting: No
== END 2024-03-23 11:20 | disposition home or self-care (01) ==
LOC: SDC 07:10 → AC 07:10
PROVIDERS: PCP Nurse Practitioner Family; Referring Provider Surgery Plastic and Reconstructive Surgery; Visit Provider Surgery Plastic and Reconstructive Surgery
PROC: (CPT 15004; principal; 2024-03-23 08:45)
DX: S61.202A Unspecified open wound of right middle finger without damage to nail, initial encounter (principal); M00.9 Pyogenic arthritis, unspecified; J44.9 Chronic obstructive pulmonary disease, unspecified; E11.9 Type 2 diabetes mellitus without complications; Z79.4 Long term (current) use of insulin; M65.841 Other synovitis and tenosynovitis, right hand; S61.401A Unspecified open wound of right hand, initial encounter; I25.10 Atherosclerotic heart disease of native coronary artery without angina pectoris; I10 Essential (primary) hypertension; E78.00 Pure hypercholesterolemia, unspecified; F17.210 Nicotine dependence, cigarettes, uncomplicated; Z79.51 Long term (current) use of inhaled steroids; Z79.82 Long term (current) use of aspirin; Z79.84 Long term (current) use of oral hypoglycemic drugs; Z79.85 Long-term (current) use of injectable non-insulin antidiabetic drugs; Z79.02 Long term (current) use of antithrombotics/antiplatelets; Z79.890 Hormone replacement therapy; Z79.899 Other long term (current) drug therapy; Z86.73 Personal history of transient ischemic attack (TIA), and cerebral infarction without residual deficits
CPT/HCPCS: 15004; 13160; 00400; 82962; 94640; A4216; J2405

== ENCOUNTER 2024-03-28 13:30 | Outpatient (RCR) | payer MEDICAID, SELFPAY ==
[2024-03-21 14:14] VITALS: BP 124/71; PULSE 69; RESP 16; TEMP 36.2; BMI 36.9
--- NOTE | 2024-03-22 06:10 | PCM.WC.PN ---
History of Present Illness Date of Service: 03/21/24 Subjective Subjective Lisandro Garibay is a 58-year-old with past medical history of diabetes and recent hospital admission for the treatment of flexor tenosynovitis of the right long finger, as well as septic PIP joint, requiring multiple trips to the operating room and infectious disease consultation (continuing to follow and the patient has been on antibiotics). He presents today for 1 week follow-up after discharge from the hospital. He reports that he is doing well today without any fevers or chills or any drainage. He has been compliant with Dial soap soaks at home and packing with iodoform gauze. Objective Data Objective Data Vital Signs: Vital Signs Temp Pulse Resp BP O2 Del Method 97.2 F L 69 16 124/71 H Room Air 03/21/24 14:14 03/21/24 14:14 03/21/24 14:14 03/21/24 14:14 03/21/24 14:14 Oxygen Delivery Method Room Air Weight: 250 lb Body Mass Index (BMI) 36.9 Charges/Coding Procedures Integumentary 111xxx-113xx: [id number] Global Visit Physical Exam Narrative Inspection: no purulence from incisions, limited tenderness to palpation. Exam improved greatly. The incision over the A1 bruce of the long finger as fibrinous exudate on the sides of the flaps and exposed flexor tendon at the base of the wound. Motor: Able to bend and extend all MP, PIP, and DIP joints, however stiffness in the right long finger and unable to make a complete fist secondary to wounds, stiffness, and swelling. Sensory: Intact to light touch on the radial and ulnar borders. Vascular: Finger tips are warm and well perfused with <2 second capillary refill. Debridement Note Debridement Note No debridement was completed: No debridement was completed today Post-Debridement Measurements and Additional Note: Post-Debridement Measurements/Treatment - Nurse 1 - General Ulcer Assessment Start: 03/21/24 14:13 Freq: Status: Active Protocol: WAYLON Activity Type Activity Date Activity User E-sign Co-sign Detail Recorded Client Recorded Date Recorded By Document 03/21/24 14:14 [facility] [id number] 03/21/24 14:46 [facility] 03/21/24 14:14 - Today's Visit Information Type of service Initial Visit Arrival Mode Ambulatory Transfer Assistance None Patient Identification Verified (Name & Yes ) Patient Requires Transmission-Based No Precautions Height and Weight Height 5 ft 9 in Weight 250 lb Weight in Pounds 250.0 lbs Weight Measurement Method Estimated by Patient Body Mass Index (BMI) 36.9 BMI Classification Obese BSA - Neptali 2.27 Vital Signs Temperature (97.8 F-99.1 F) 97.2 F L Temperature Source Temporal Pulse Rate (60-100) 69 Pulse Location Monitor Respiratory Rate (12-18) 16 Respiratory rate source Observation Oxygen Delivery Method Room Air Blood Pressure (90/60-120/80) 124/71 H Blood Pressure Mean (mm Hg) 88 Source Monitor Position Sitting Blood Pressure Location Left Arm History Since Last Visit- (Skip if this is Patient's initial visit) Left Footwear Regular Shoe Right Footwear Regular Shoe Pain Scale: 0-10 Numeric Is Patient Pain Free? Yes Communication Assessment Preferred language Micronesian Able to Read Yes Able to Write Yes Communication Tools None Right Hearing Abillity Normal Left Hearing Abillity Normal Visual Assistive Devices Glasses Teaching Assessment Preferences Verbal,Written, Audio/Visual, Demonstration Barriers to Learning None Readiness To Learn Excellent Willingness to Engage in Self Management High Activies Readiness to Engage in Self Management High Activities Anxiety Level Calm Cooperation Cooperative Perception Coherent Interest in Health Problem Asks Questions Education Importance Acknowledges Need Does Patient Smoke tobacco or other No substances Smoking Status Current every day smoker Is Patient Diabetic Yes Culture/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 Cultural/Faith Needs that may affect No Treatment Plan Teaching: Wound Center *Welcome to the Wound Center -Person Taught Patient -Teaching Method Discussion -Response to teaching Verbalize Understanding WC - Nurse 1 - General Ulcer Measurement Start: 03/21/24 14:13 Freq: Status: Active Protocol: Activity Type Activity Date Activity User E-sign Co-sign Detail Recorded Client Recorded Date Recorded By Document 03/21/24 14:14 [facility] [id number] 03/21/24 14:46 [facility] 03/21/24 14:14 Wound Center Nurse 1 #3- R HAND 3RD DIGIT, LATERAL -Combined with other wound No -Current Size (cm) - Length 1.9 -Current Size (cm) - Width 0.5 -Current Size (cm) - Depth 0.2 -Total Square Cm 0.95 -Date of Last Picture (Recall this 03/21/24 field) -Photo Taken Yes -Tunneling No -Undermining/Tunneling No -Circular Undermining No -Exudate Amt Medium -Exudate Type Serosanguineous -Wound Margin Distinct, Outline Attached -Granulation Amt Medium (34-66%) -Granulation Quality Red -Slough/Fibrin Yes -Necrosis Amt Medium (34-66%) -Necrotic Tissue Type Adherent Slough -Texture (Carolyn-wound Skin Appearance) Assessed, Localized Edema ,Scarring -Moisture (Carolyn-wound Skin Appearance) Assessed,Dry/ Scaly -Color (Carolyn-wound Skin Appearance) Assessed, Erythema -Temperature (Carolyn-wound Skin No Abnormality Appearance) (Pt Warm) -Tenderness on Palpation (Carolyn-wound No Skin Appearance) -Ulcer Cleansing Rinsed/ Irrigated with Saline -Foul Odor after Cleansing No #2- R HAND BASE OF 3RD DIGIT -Combined with other wound No -Current Size (cm) - Length 3.8 -Current Size (cm) - Width 3.1 -Current Size (cm) - Depth 0.7 -Total Square Cm 11.78 -Tunneling No -Undermining/Tunneling No -Circular Undermining No -Exudate Amt Medium -Exudate Type Serosanguineous -Wound Margin Distinct, Outline Attached -Granulation Amt Large (67-100%) -Granulation Quality Red -Slough/Fibrin Yes -Necrosis Amt Small (1-33%) -Necrotic Tissue Type Adherent Slough -Structure Exposed Tendon -Texture (Carolyn-wound Skin Appearance) Assessed, Localized Edema ,Scarring -Moisture (Carolyn-wound Skin Appearance) Assessed,Dry/ Scaly -Color (Carolyn-wound Skin Appearance) Assessed, Erythema -Temperature (Carolyn-wound Skin No Abnormality Appearance) (Pt Warm) -Tenderness on Palpation (Carolyn-wound No Skin Appearance) -Ulcer Cleansing Rinsed/ Irrigated with Saline -Foul Odor after Cleansing No #1- R HAND/PALM -Combined with other wound No -Current Size (cm) - Length 4.1 -Current Size (cm) - Width 0.4 -Current Size (cm) - Depth 0.4 -Total Square Cm 1.64 -Date of Last Picture (Recall this 03/21/24 field) -Photo Taken Yes -Tunneling No -Undermining/Tunneling No -Circular Undermining No -Exudate Amt Medium -Exudate Type Serosanguineous -Wound Margin Distinct, Outline Attached -Granulation Amt Large (67-100%) -Granulation Quality Red -Slough/Fibrin Yes -Necrosis Amt Small (1-33%) -Necrotic Tissue Type Adherent Slough -Texture (Carolyn-wound Skin Appearance) Assessed, Scarring -Moisture (Carolyn-wound Skin Appearance) Assessed,Dry/ Scaly -Color (Carolyn-wound Skin Appearance) Assessed -Temperature (Carolyn-wound Skin No Abnormality Appearance) (Pt Warm) -Tenderness on Palpation (Carolyn-wound No Skin Appearance) -Ulcer Cleansing Rinsed/ Irrigated with Saline -Foul Odor after Cleansing No WC - Nurse 2 - General Ulcer CM Notes Start: 03/21/24 14:13 Freq: Status: Active Protocol: Activity Type Activity Date Activity User E-sign Co-sign Detail Recorded Client Recorded Date Recorded By Document 03/21/24 14:48 [facility] [id number] 03/21/24 14:50 [facility] 03/21/24 14:48 Wound Center Nurse 2 #3- R HAND 3RD DIGIT, LATERAL -Time 14:49 -Post Debridement (cm) - Length 1.9 -Post Debridement (cm) - Width 0.5 -Post Debridement (cm) - Depth 0.2 -Total Square (Post) (cm) 0.95 -Area of Debridement (cm) - Length 1.9 -Area of Debridement (cm) - Width 0.5 -Total Square (Area) (cm) 0.95 -Bleeding Controlled with NA #2- R HAND BASE OF 3RD DIGIT -Time 14:49 -Post Debridement (cm) - Length 3.8 -Post Debridement (cm) - Width 3.1 -Post Debridement (cm) - Depth 0.7 -Total Square (Post) (cm) 11.78 -Area of Debridement (cm) - Length 3.8 -Area of Debridement (cm) - Width 3.1 -Total Square (Area) (cm) 11.78 -Bleeding Controlled with NA #1- R HAND/PALM -Time 14:49 -Post Debridement (cm) - Length 4.1 -Post Debridement (cm) - Width 0.4 -Post Debridement (cm) - Depth 0.4 -Total Square (Post) (cm) 1.64 -Area of Debridement (cm) - Length 4.1 -Area of Debridement (cm) - Width 0.4 -Total Square (Area) (cm) 1.64 -Bleeding Controlled with NA Pain Scale: 0-10 Numeric Is Patient Pain Free? Yes WC - Nurse 3 - General Ulcer D/C NN Start: 03/21/24 14:13 Freq: Status: Active Protocol: Activity Type Activity Date Activity User E-sign Co-sign Detail Recorded Client Recorded Date Recorded By Document 03/21/24 14:46 [facility] [id number] 03/21/24 14:47 [facility] 03/21/24 14:46 Wound Care Center Nurse 3 #3- R HAND 3RD DIGIT, LATERAL -Ulcer Cleansing Rinsed/ Irrigated with Saline -Foul Odor after Cleansing No -Primary Dressing Applied Aquacel AG 4x4 -Primary Dressing Covered/Secured with Dry Gauze & Roll Gauze, Secured with Tape -Aquacel AG 4x4 3 #2- R HAND BASE OF 3RD DIGIT -Ulcer Cleansing Rinsed/ Irrigated with Saline -Foul Odor after Cleansing No -Primary Dressing Applied Aquacel AG 4x4 -Primary Dressing Covered/Secured with Dry Gauze & Roll Gauze, Secured with Tape -Aquacel AG 4x4 0 #1- R HAND/PALM -Ulcer Cleansing Rinsed/ Irrigated with Saline -Foul Odor after Cleansing No -Primary Dressing Applied Aquacel AG 4x4 -Primary Dressing Covered/Secured with Dry Gauze & Roll Gauze, Secured with Tape -Aquacel AG 4x4 0 R HAND -Compression Wrap Zachery Wrap -Other TO SECURE Treatment Response Procedure Tolerated Well Pain Scale: 0-10 Numeric Is Patient Pain Free? Yes - Visit Discharge Discharge Condition Stable Ambulatory Status Ambulatory Transportation Private Auto Assessment/Plan Assessment/Plan (1) Flexor tenosynovitis of finger: CODE(S): M65.949 - Unspecified synovitis and tenosynovitis, unspecified hand (2) Septic arthritis of interphalangeal joint of finger of right hand: CODE(S): M00.9 - Pyogenic arthritis, unspecified PLAN: Plan Appreciate infectious disease team involvement. Per infectious disease, patient will continue doxycycline for another 2 weeks. Continue Dial soap soak dressings and switch to Aquacel Ag dressings (discussed with the patient). Plan for debridement in the operating room and delayed primary closure on 23 March 2024. I will leave some portions of the wound open but I am going to try to advance the Shakira flap over the flexor tendon, and then he can continue wound care. There is fibrinous send today in the base of the wound edges that needs to be removed to promote healing. I talked to the patient about risk benefits and alternatives and he was in agreement with proceeding. I talked to him about referral to Occupational Therapy, and he declined as he would like to do exercises going forward on his own. I talked him about the risks of stiffness secondary to not having formal hand therapy.
--- NOTE | 2024-03-22 08:19 | WC ---
PHOTO 03/21/24 RIGHT HAND PALM/3RD FINGER
--- NOTE | 2024-03-22 08:21 | WC ---
PHOTO 03/21/24 RIGHT HAND/PALM
--- NOTE | 2024-03-22 08:22 | WC ---
PHOTO 03/21/24 RIGHT HAND/3RD DIGIT
--- NOTE | 2024-03-22 08:23 | WC ---
PHOTO 03/21/24 RIGHT HAND/3RD DIGIT LATERAL
[2024-03-28 13:35] VITALS: BP 130/62; PULSE 71; RESP 18; TEMP 36.5; BMI 36.9
--- NOTE | 2024-03-28 16:52 | PCM.WC.PN ---
History of Present Illness Date of Service: 03/28/24 Subjective Subjective Lisandro Garibay is a 58-year-old with past medical history of diabetes and recent hospital admission for the treatment of flexor tenosynovitis of the right long finger, as well as septic PIP joint, requiring multiple trips to the operating room and infectious disease consultation (continuing to follow and the patient has been on antibiotics). He presents today for 1 week follow-up after discharge from the hospital. He reports that he is doing well today without any fevers or chills or any drainage. He has been compliant with Dial soap soaks at home and packing with iodoform gauze. CURRENT ENCOUNTER, 28 Mar 2024: Post op week one from delayed primary closure. Healing well. No fevers chills. Doing well with dressing changes. Objective Data Objective Data Vital Signs: Vital Signs Temp Pulse Resp BP O2 Del Method 97.7 F L 71 18 130/62 H Room Air 03/28/24 13:35 03/28/24 13:35 03/28/24 13:35 03/28/24 13:35 03/21/24 14:14 Oxygen Delivery Method Room Air Weight: 250 lb Body Mass Index (BMI) 36.9 Charges/Coding Procedures Integumentary 111xxx-113xx: 11716 Global Visit Physical Exam Narrative Inspection: no purulence from incisions, limited tenderness to palpation. Exam improved greatly. The incision over the A1 bruce of the long finger as fibrinous exudate and less exposed flexor tendon at the base of the wound since delayed primary closure.. Motor: Able to bend and extend all MP, PIP, and DIP joints, however stiffness in the right long finger and unable to make a complete fist secondary to wounds, stiffness, and swelling. Sensory: Intact to light touch on the radial and ulnar borders. Vascular: Finger tips are warm and well perfused with <2 second capillary refill. 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 ) Arrival Mode Ambulatory Ambulatory Transfer Assistance None None Patient Identification Verified (Name & Yes Yes ) Patient Requires Transmission-Based No No Precautions Height and Weight Height 5 ft 9 in Weight 250 lb Weight in Pounds 250.0 lbs Weight Measurement Method Estimated by Patient Body Mass Index (BMI) 36.9 36.9 BMI Classification Obese Obese BSA - Neptali 2.27 Vital Signs Temperature (97.8 F-99.1 F) 97.2 F L 97.7 F L Temperature Source Temporal Temporal Pulse Rate (60-100) 69 71 Pulse Location Monitor Monitor Respiratory Rate (12-18) 16 18 Respiratory rate source Observation Observation Oxygen Delivery Method Room Air Blood Pressure (90/60-120/80) 124/71 H 130/62 H Blood Pressure Mean (mm Hg) 88 84 Source Monitor Monitor Position Sitting Blood Pressure Location Left Arm History Since Last Visit- (Skip if this is Patient's initial visit) Have you changed medications since your No last visit? Any new allergies or adverse reactions No Had a fall/change in ADL's that may No increase risk of falls Signs or symptoms of abuse and/or No neglect since last visit Have you been in the hospital since your No last visit? Has dressing in place as prescribed Yes Has compression in place as prescribed Yes Has offloadiing in place as prescribed Yes Experienced any changes in pain level or No management Left Footwear Regular Shoe Right Footwear Regular Shoe Pain Scale: 0-10 Numeric Is Patient Pain Free? Yes Yes Communication Assessment Preferred language [place] Able to Read Yes Able to Write Yes Communication Tools None Right Hearing Abillity Normal Left Hearing Abillity Normal Visual Assistive Devices Glasses Teaching Assessment Preferences Verbal,Written, Audio/Visual, Demonstration Barriers to Learning None Readiness To Learn Excellent Willingness to Engage in Self Management High Activies Readiness to Engage in Self Management High Activities Anxiety Level Calm Cooperation Cooperative Perception Coherent Interest in Health Problem Asks Questions Education Importance Acknowledges Need Does Patient Smoke tobacco or other No substances Smoking Status Current every day smoker Is Patient Diabetic Yes 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 Needs that may affect No Treatment Plan Teaching: Wound Center *Welcome to the Wound Center -Person Taught Patient -Teaching Method Discussion -Response to teaching Verbalize Understanding WC - Nurse 1 - General Ulcer Measurement Start: 03/21/24 14:13 Freq: Status: Active Protocol: Activity Type Activity Date Activity User E-sign Co-sign Detail Recorded Client Recorded Date Recorded By Document 03/21/24 14:14 BMF [id number] 03/21/24 14:46 BM Document 03/28/24 13:35 DL [id number] 03/28/24 13:45 DL 03/21/24 03/28/24 14:14 13:35 Wound Center Nurse 1 #3- R HAND 3RD DIGIT, LATERAL -Combined with other wound No -Current Size (cm) - Length 1.9 0.6 -Current Size (cm) - Width 0.5 1.4 -Current Size (cm) - Depth 0.2 0.5 -Total Square Cm 0.95 0.84 -Date of Last Picture (Recall this 03/21/24 field) -Photo Taken Yes Yes -Tunneling No -Undermining/Tunneling No -Circular Undermining No -Exudate Amt Medium Medium -Exudate Type Serosanguineous Serosanguineous -Wound Margin Distinct, Distinct, Outline Outline Attached Attached -Granulation Amt Medium (34-66%) Medium (34-66%) -Granulation Quality [place] -Slough/Fibrin Yes -Necrosis Amt Medium (34-66%) Medium (34-66%) -Necrotic Tissue Type Adherent Slough Adherent Slough -Structure Exposed N/A -Texture (Carolyn-wound Skin Appearance) Assessed, Localized Edema Localized Edema ,Scarring ,Scarring -Moisture (Carolyn-wound Skin Appearance) Assessed,Dry/ Scaly -Color (Carolyn-wound Skin Appearance) Assessed, Erythema Erythema -Temperature (Carolyn-wound Skin No Abnormality No Abnormality Appearance) (Pt Warm) (Pt Warm) -Tenderness on Palpation (Carolyn-wound No Skin Appearance) -Ulcer Cleansing Rinsed/ Rinsed/ Irrigated with Irrigated with Saline Saline -Foul Odor after Cleansing No No -Anesthetic Used 5% Lidocaine Gel #2- R HAND BASE OF 3RD DIGIT -Combined with other wound No -Current Size (cm) - Length 3.8 0.7 -Current Size (cm) - Width 3.1 0.7 -Current Size (cm) - Depth 0.7 0.7 -Total Square Cm 11.78 0.49 -Photo Taken Yes -Tunneling No -Undermining/Tunneling No -Circular Undermining No -Exudate Amt Medium Medium -Exudate Type Serosanguineous Serosanguineous -Wound Margin Distinct, Distinct, Outline Outline Attached Attached -Granulation Amt Large (67-100%) Medium (34-66%) -Granulation Quality [place] -Slough/Fibrin Yes -Necrosis Amt Small (1-33%) Medium (34-66%) -Necrotic Tissue Type Adherent Slough Adherent Slough -Structure Exposed Tendon Tendon -Texture (Carolyn-wound Skin Appearance) Assessed, Localized Edema Localized Edema ,Scarring ,Scarring -Moisture (Carolyn-wound Skin Appearance) Assessed,Dry/ No Abnormality Scaly -Color (Carolyn-wound Skin Appearance) Assessed, No Abnormality Erythema -Temperature (Carolyn-wound Skin No Abnormality No Abnormality Appearance) (Pt Warm) (Pt Warm) -Tenderness on Palpation (Carolyn-wound No No Skin Appearance) -Ulcer Cleansing Rinsed/ Rinsed/ Irrigated with Irrigated with Saline Saline -Foul Odor after Cleansing No -Anesthetic Used 5% Lidocaine Gel #1- R HAND/PALM -Combined with other wound No -Current Size (cm) - Length 4.1 0.1 -Current Size (cm) - Width 0.4 0.1 -Current Size (cm) - Depth 0.4 0.1 -Total Square Cm 1.64 0.01 -Date of Last Picture (Recall this 03/21/24 field) -Photo Taken Yes Yes -Tunneling No -Undermining/Tunneling No -Circular Undermining No -Exudate Amt Medium Medium -Exudate Type Serosanguineous Serosanguineous -Wound Margin Distinct, Distinct, Outline Outline Attached Attached -Granulation Amt Large (67-100%) Medium (34-66%) -Granulation Quality [place] -Slough/Fibrin Yes -Necrosis Amt Small (1-33%) Medium (34-66%) -Necrotic Tissue Type Adherent Slough Adherent Slough -Structure Exposed N/A -Texture (Carolyn-wound Skin Appearance) Assessed, Localized Edema Scarring ,Scarring -Moisture (Carolyn-wound Skin Appearance) Assessed,Dry/ No Abnormality Scaly -Color (Carolyn-wound Skin Appearance) Assessed No Abnormality -Temperature (Carolyn-wound Skin No Abnormality No Abnormality Appearance) (Pt Warm) (Pt Warm) -Tenderness on Palpation (Carolyn-wound No No Skin Appearance) -Ulcer Cleansing Rinsed/ Rinsed/ Irrigated with Irrigated with Saline Saline -Foul Odor after Cleansing No No -Anesthetic Used 5% Lidocaine Gel WC - Nurse 2 - General Ulcer CM Notes Start: 03/21/24 14:13 Freq: Status: Active Protocol: Activity Type Activity Date Activity User E-sign Co-sign Detail Recorded Client Recorded Date Recorded By Document 03/21/24 14:48 BM [id number] 03/21/24 14:50 [facility] Document 03/28/24 13:50 [id number] 03/28/24 13:50 03/21/24 03/28/24 14:48 13:50 Wound Center Nurse 2 #3- R HAND 3RD DIGIT, LATERAL -Time 14:49 -Correct Patient No -Correct Side, Site, Position No -Correct Procedure No -Procedure Performed No -Post Debridement (cm) - Length 1.9 -Post Debridement (cm) - Width 0.5 -Post Debridement (cm) - Depth 0.2 -Total Square (Post) (cm) 0.95 -Area of Debridement (cm) - Length 1.9 -Area of Debridement (cm) - Width 0.5 -Total Square (Area) (cm) 0.95 -Wound/Ulcer Outcome Not Healed -Bleeding Controlled with NA #2- R HAND BASE OF 3RD DIGIT -Time 14:49 -Correct Patient No -Correct Side, Site, Position No -Correct Procedure No -Procedure Performed No -Post Debridement (cm) - Length 3.8 -Post Debridement (cm) - Width 3.1 -Post Debridement (cm) - Depth 0.7 -Total Square (Post) (cm) 11.78 -Area of Debridement (cm) - Length 3.8 -Area of Debridement (cm) - Width 3.1 -Total Square (Area) (cm) 11.78 -Wound/Ulcer Outcome Not Healed -Bleeding Controlled with NA #1- R HAND/PALM -Time 14:49 -Correct Patient No -Correct Side, Site, Position No -Correct Procedure No -Procedure Performed No -Post Debridement (cm) - Length 4.1 -Post Debridement (cm) - Width 0.4 -Post Debridement (cm) - Depth 0.4 -Total Square (Post) (cm) 1.64 -Area of Debridement (cm) - Length 4.1 -Area of Debridement (cm) - Width 0.4 -Total Square (Area) (cm) 1.64 -Wound/Ulcer Outcome Not Healed -Bleeding Controlled with NA Pain Scale: 0-10 Numeric Is Patient Pain Free? Yes Yes - Nurse 3 - General Ulcer D/C NN Start: 03/21/24 14:13 Freq: Status: Active Protocol: Activity Type Activity Date Activity User E-sign Co-sign Detail Recorded Client Recorded Date Recorded By Document 03/21/24 14:46 [facility] [id number] 03/21/24 14:47 [facility] Document 03/28/24 14:06 DL [id number] 03/28/24 14:07 DL 03/21/24 03/28/24 14:46 14:06 Wound Care Center Nurse 3 #3- R HAND 3RD DIGIT, LATERAL -Ulcer Cleansing Rinsed/ Soap and Water Irrigated with Saline -Foul Odor after Cleansing No No -Primary Dressing Applied Aquacel AG 4x4 Aquacel AG 4x4 -Primary Dressing Covered/Secured with Dry Gauze & Dry Gauze & Roll Gauze, Roll Gauze, Secured with Secured with Tape Tape -Other Covering ZACHERY -Aquacel AG 4x4 3 1 #2- R HAND BASE OF 3RD DIGIT -Ulcer Cleansing Rinsed/ Soap and Water Irrigated with Saline -Foul Odor after Cleansing No No -Primary Dressing Applied Aquacel AG 4x4 -Other Dressing Aquacel ag -Primary Dressing Covered/Secured with Dry Gauze & Dry Gauze & Roll Gauze, Roll Gauze, Secured with Secured with Tape Tape -Aquacel AG 4x4 0 #1- R HAND/PALM -Ulcer Cleansing Rinsed/ Soap and Water Irrigated with Saline -Foul Odor after Cleansing No No -Primary Dressing Applied Aquacel AG 4x4 -Other Dressing aquacel ag -Primary Dressing Covered/Secured with Dry Gauze & Dry Gauze & Roll Gauze, Roll Gauze, Secured with Secured with Tape Tape -Other Covering ZACHERY -Aquacel AG 4x4 0 R HAND -Compression Wrap Zachery Wrap Zachery Wrap -Other TO SECURE Treatment Response Procedure Procedure Tolerated Well Tolerated Well Pain Scale: 0-10 Numeric Is Patient Pain Free? Yes Yes - Visit Discharge Discharge Condition Stable Stable Ambulatory Status Ambulatory Ambulatory Transportation [facility] Facility Type Home Health Orders Sent Yes Assessment/Plan Assessment/Plan (1) Flexor tenosynovitis of finger: CODE(S): M65.949 - Unspecified synovitis and tenosynovitis, unspecified hand (2) Septic arthritis of interphalangeal joint of finger of right hand: CODE(S): M00.9 - Pyogenic arthritis, unspecified PLAN: Plan Appreciate infectious disease team involvement. Per infectious disease, patient will continue doxycycline for another week. Continue Dial soap soak dressings and Aquacel Ag dressings (discussed with the patient). I talked to him about referral to Occupational Therapy, and he declined as he would like to do exercises going forward on his own. I talked him about the risks of stiffness secondary to not having formal hand therapy. F/u with me in the wound care center in 1 week
--- NOTE | 2024-03-29 08:31 | WC ---
PHOTO RIGHT HAND 3RD FINGER 03/28/24
--- NOTE | 2024-03-29 08:34 | WC ---
PHOTO 03/28/24 RIGHT HAND
--- NOTE | 2024-03-29 08:36 | WC ---
PHOTO 03/28/24 RIGHT HAND
== END 2024-03-31 23:59 | disposition home or self-care (01) ==
LOC: WC 13:30
PROVIDERS: PCP Nurse Practitioner Family; Referring Provider Surgery Plastic and Reconstructive Surgery; Visit Provider Surgery Plastic and Reconstructive Surgery
DX: M65.949 Unspecified synovitis and tenosynovitis, unspecified hand (principal); M00.9 Pyogenic arthritis, unspecified
CPT/HCPCS: 99213; G0463

== ENCOUNTER → 2024-04-08 | Outpatient (CLI) | payer MEDICAID, SELFPAY | END | disposition home or self-care (01) | PROVIDERS: PCP Nurse Practitioner Family; Referring Provider Nurse Practitioner Family; Visit Provider Nurse Practitioner Family | DX: L02.811 Cutaneous abscess of head [any part, except face] (principal); R19.7 Diarrhea, unspecified; Z79.2 Long term (current) use of antibiotics | CPT/HCPCS: 87493 ==

== ENCOUNTER 2024-04-09 20:14 | Emergency (ER) | payer MEDICAID, SELFPAY ==
[2024-04-09 20:16] VITALS: BP 128/81; PULSE 75; RESP 18; TEMP 36.6; O2SAT 95; BMI 36.1
[2024-04-09 20:20] VITALS: BP 128/81; PULSE 75; RESP 18; TEMP 36.6; O2SAT 94
[2024-04-09] MEDS: Ondansetron 4 MG/2 ML Vial IV (20:53)
[2024-04-09] MEDS: Dicyclomine 20 MG/2 ML Vial IM (20:54)
[2024-04-09] MEDS: Morphine 4 MG/ML Syringe IV (20:56)
[2024-04-09] MEDS: 0.9% Normal Saline (1000mL) 1,000 ML 999 ML IV (20:56)
[2024-04-09 21:16] LABS: Absolute Lymphocyte Count 4.07 X10^3/uL (0.83-4.51); Absolute Neutrophil Count 5.1 X10^3/uL (2.0-7.7); Basophil# 0.09 X10^3/uL; Basophil% 0.6 % (0-1); Eosinophil# 4.11 X10^3/uL; Eosinophils% 29.1 % (0-5); Hematocrit 47.7 % (40-54); Hemoglobin 17.3 g/dL (13.0-16.5); Lymphocyte # 4.07 X10^3/ul (0.83-4.51); Lymphocyte % 28.8 % (19-41); Mean Corp Hgb Conc 36.3 g/dL (32-36); Mean Corpuscular Hgb 34.8 pg (27.0-32.0); Mean Platelet Vol. 11.3 fl (6.2-12.0); Monocyte# 0.75 X10^3/uL; Monocyte% 5.3 % (0-10); NRBC Flagged by Analyzer 0 % (0-5); Neutrophil # 5.06 X10^3/uL (2.7-7.7); POSITIVE DIFFERENTIAL YES; Platelet Count 142 K/mm3 (150-450); RBC Distribution Width CV 13.3 % (11.6-14.6); RBC Distribution Width SD 46.6 fl (35.1-43.9); Red Blood Count 4.97 M/mm3 (4.6-6.2); White Blood Count 14.1 K/mm3 (4.4-11.0)
[2024-04-09 21:25] LABS: Differential Indicated SCAN CRITERIA MET
[2024-04-09 21:26] VITALS: BP 124/76; PULSE 77; RESP 16; TEMP 36.7; O2SAT 94
[2024-04-09 21:26] LABS: Mucous, Urine 0 SEEN /hpf (<or=2+); Red Blood Cells-Urine 0 SEEN /hpf (0-5); White Blood Cells 0 SEEN /hpf (0-5)
[2024-04-09 21:29] LABS: Color, Urine Straw (Yellow); Glucose, Dipstick 1000 mg/dl (Normal); Ketone-Dipstick Negative (Negative); Leukocyte Esterase-Dipstick Negative /ul (Negative); Nitrite-Dipstick Negative (Negative); Occult Blood-Urine Negative /ul (Negative); Protein-Dipstick 15 mg/dl (Negative); Specific Gravity, Urine 1.025 (1.002-1.030); Urine Bilirubin Dipstick Negative (Negative); Urine Clarity Clear (Clear); Urine Urobilinogen Normal (Normal)
[2024-04-09 21:44] LABS: ALB/GLOB Ratio 1.3 RATIO (0.9-2.4); AST(SGOT) 66 U/L (15-37); Alanine Aminotransfer ALT/SGPT 49 U/L (16-61); Albumin, Serum 3.6 g/dL (3.2-5.0); Alkaline Phosphatase 100 U/L (45-117); Anion Gap 5 (5-15); BUN 14 mg/dL (7-18); BUN/Creat Ratio 15.7 RATIO (10-20); Chloride 111 mmol/L (98-107); Creatinine, Serum 0.89 mg/dL (0.70-1.30); EST Glomerular Filtration Rate 93 mL/min (>60); Est Glom Filt Rate - Afr Amer 113 mL/min (>60); Estimated Creatinine Clearance 112.54 ml/min; Globulin 2.8 g/dL (2.2-4.2); Glucose 117 mg/dL (74-106); Lipase 133 U/L (13-75); Potassium 4.6 mmol/L (3.5-5.1); Protein, Total 6.4 g/dL (6.4-8.2); Sodium Level 137 mmol/L (136-145)
[2024-04-09 22:00] VITALS: BP 126/77; PULSE 76; RESP 16; TEMP 36.7; O2SAT 95
[2024-04-09 22:10] LABS: Bacteria 1+ /hpf (None Seen); Calcium Oxalate Crystals Ur 1+ /hpf (<or=2+); Squamous Epithelial Cells - UA 5-10 SEEN /hpf (0-5)
[2024-04-09 22:37] LABS: Lactic Acid 1.3 mmol/L (0.4-1.9)
[2024-04-09 22:43] VITALS: BP 118/75; PULSE 70; RESP 16; TEMP 36.8; O2SAT 93
[2024-04-09 22:45] LABS: Differential Comment SCANNED; Reactive Lymphocyte 2+; Toxic Granulation 2+
[2024-04-10] VITALS: BP 115/66; PULSE 73; RESP 16; TEMP 36.8; O2SAT 92
[2024-04-10] MEDS: Dicyclomine 20 MG/2 ML Vial IM (00:01)
[2024-04-10 01:00] VITALS: BP 117/64; PULSE 73; RESP 16; TEMP 36.7; O2SAT 93
[2024-04-10 02:00] VITALS: BP 103/67; PULSE 66; RESP 16; TEMP 37.1; O2SAT 92
== END 2024-04-10 02:35 | disposition home or self-care (01) ==
PROVIDERS: Nurse Practitioner; Emergency Provider Emergency Medicine; PCP Nurse Practitioner Family; Visit Provider Emergency Medicine
DX: R19.7 Diarrhea, unspecified (principal); J44.9 Chronic obstructive pulmonary disease, unspecified; E11.9 Type 2 diabetes mellitus without complications; E78.00 Pure hypercholesterolemia, unspecified; K86.2 Cyst of pancreas; I25.10 Atherosclerotic heart disease of native coronary artery without angina pectoris; I10 Essential (primary) hypertension; F17.210 Nicotine dependence, cigarettes, uncomplicated; Z98.890 Other specified postprocedural states; K21.9 Gastro-esophageal reflux disease without esophagitis; E66.9 Obesity, unspecified; R10.9 Unspecified abdominal pain
CPT/HCPCS: 74177; 80053; 81001; 83605; 83690; 85025; 87506; 96361; 96372; 96374; 96375; 99283; J7030; Q9967; A4216; J2405

== ENCOUNTER 2024-04-13 20:29 | Inpatient (IN) | payer MEDICAID, SELFPAY ==
[2024-04-13 14:55] VITALS: BP 129/55; PULSE 70; RESP 20; TEMP 36.8; O2SAT 96; BMI 36.8
--- NOTE | 2024-04-13 15:35 | HP.PCM.SX_ITS ---
HPI - General HPI Narrative ONELIA REED, is a 58 M who presents with volar hand wound with exposed flexor tendons. Current Encounter (DATE OF SURGERY H&P UPDATE): I saw and examined the patient this morning in pre-operative holding. We discussed risks and benefits of today's surgery and they would like to proceed. NO CHANGE in health history since last seen and evaluated. Ready to proceed with surgery. [facility] Medical History Insulin dependent diabetes mellitus Arthritis Kidney stone TIA (transient ischemic attack) Seizures Gastric reflux Hypertension History of CVA in adulthood Antiplatelet or antithrombotic long-term use Flexor tenosynovitis of finger Wears glasses No natural teeth Diabetes Thyroid disease High cholesterol Blackout History of GI bleed Smoker BiPAP (biphasic positive airway pressure) dependence Sleep apnea Shortness of breath on exertion Chronic cough History of edema Leg cramps History of stress test Cardiology follow-up encounter Elevated LFTs Back pain Dorsalgia of thoracolumbar region Patellofemoral arthritis of right knee Bilateral knee pain Situational syncope Chest pain, unspecified Type 2 diabetes mellitus Essential hypertension Pneumonia due to other streptococci Atherosclerosis of coronary artery of [place] heart without angina pectoris Right bundle-branch block Gastroesophageal reflux disease Hypertriglyceridemia Obstructive sleep apnea Body mass index (BMI) 35 or more Tobacco abuse COPD (chronic obstructive pulmonary disease) MASON (dyspnea on exertion) Morbid obesity due to excess calories Localized edema Long-term use of high-risk medication Hyperlipidemia Difficulty swallowing Stage 2 moderate COPD by GOLD classification Sinus drainage Home Medications ?Medication ?Instructions ?Recorded ?Last Taken ?Type albuterol sulfate 90 mcg/actuation 6.7 g inhalation PRN PRN Wheezing 12/06/14 04/13/24 History aerosol inhaler ergocalciferol (vitamin D2) 1,250 50,000 unit PO Q7D SUPPLEMENT 12/06/14 04/12/24 History mcg (50,000 unit) capsule fluticasone propionate 50 1 spray NASAL DAILY ALLERGIES 05/05/16 04/10/24 History mcg/actuation nasal spray,suspension aspirin 81 mg tablet,delayed 81 mg PO DAILY HEART 08/11/19 04/12/24 History release duloxetine 60 mg capsule,delayed 60 mg PO DAILY MOOD 08/11/19 04/12/24 History release levothyroxine 50 mcg tablet 75 mcg PO DAILY THYROID 08/11/19 04/12/24 History losartan 50 mg tablet 25 mg PO QDAY BLOOD PRESSURE 08/11/19 04/12/24 History mirtazapine 15 mg tablet 45 mg PO QHS SLEEP AND RLS 08/11/19 04/12/24 History multivitamin 1 cap PO DAILY SUPPLEMENT 08/11/19 04/12/24 History nitroglycerin 0.4 mg sublingual 0.4 mg sublingual ONCE PRN chest 08/11/19 Unknown History tablet (Nitrostat) pain budesonide-formoterol HFA 160 2 puff inhalation BID COPD #10.2 12/05/19 04/12/24 Rx mcg-4.5 mcg/actuation aerosol grams inhaler clopidogrel 75 mg tablet 75 mg PO QDAY BLOOD THINNER #90 12/29/19 04/11/24 Rx tabs furosemide 40 mg tablet (Lasix) 60 mg PO DAILY WATER PILL 11/15/20 03/22/24 History metformin 1,000 mg tablet 1,000 mg PO BID DIABETES 11/15/20 04/12/24 History isosorbide mononitrate 60 mg 30 mg (1/2 x 60 mg) PO BID HEART 12/03/21 03/23/24 Rx tablet,extended release 24 hr #90 tabs omeprazole 40 mg capsule,delayed 40 mg PO DAILY GERD 1 month #30 06/05/23 04/13/24 Rx release caps rosuvastatin 20 mg tablet 20 mg PO QHS CHOLESTEROL 1 month 06/05/23 04/12/24 Rx #30 tabs empagliflozin 25 mg tablet 25 mg PO DAILY DAIBETES #30 tabs 11/24/23 04/12/24 Rx (Jardiance) fluticasone fur. 100 mcg-umeclid 1 ea inhalation DAILY copd 03/07/24 04/12/24 History 62.5 mcg-vilant 25 mcg inhalat.powder (Trelegy Ellipta) gabapentin 800 mg tablet 800 mg PO TID pain 03/07/24 04/13/24 History doxycycline monohydrate 100 mg 100 mg PO BID ANTIBIOTIC 03/22/24 04/11/24 History capsule dulaglutide 1.5 mg/0.5 mL 1.5 mg subcut QWEEK DIABETES 03/22/24 04/10/24 History subcutaneous pen injector (Trulicity) insulin glargine 100 unit/mL (3 1 unit subcut QHS PRN IF NEEDED 03/22/24 03/21/24 History mL) subcutaneous pen (Basaglar FOR BS KwikPen U-100 Insulin) dicyclomine 10 mg capsule 20 mg (2 x 10 mg) PO TIDAC ABD 04/09/24 04/12/24 Rx PAIN #20 CAPSULES diphenoxylate-atropine 2.5 2 tab PO TID PRN diarrhea #20 tabs 04/10/24 Unknown Rx mg-0.025 mg tablet (Lomotil) Allergy/AdvReac Type Severity Reaction Status Date / Time No Known Allergies Allergy Verified 04/13/24 14:49 Family History Father CVA (cerebral vascular accident) Brother CAD (coronary artery disease) Diabetes Mother COPD (chronic obstructive pulmonary disease) Sarcoidosis Surgical History (Updated 04/12/24 @ 08:44 by Madina Meier) History of hand surgery History of cardiac catheterization S/P laparoscopic cholecystectomy H/O umbilical hernia repair History of coronary artery stent placement (~03/25/16) History of carpal tunnel surgery of right wrist History of left heart catheterization Social History household members: spouse current occupational status: disabled Smoking Status: Current every day smoker tobacco type: cigarettes Tobacco: How many years used: 30 second hand exposure: Yes alcohol intake: never substance use type: does not use caffeine: Yes Type: coffee Number of servings: 2 what type of physical activity do you participate in: none Vital Signs Vital Signs Vital Signs: 04/13/24 14:55 04/13/24 14:55 Temperature 98.2 F Temperature Source Temporal Pulse Rate 70 Respiratory Rate 20 H Respiratory Pattern Normal Blood Pressure 129/55 H Blood Pressure Mean 79 Blood Pressure Source Monitor Blood Pressure Position Semi-Fowlers Blood Pressure Location Left Forearm Pulse Ox 96 Oxygen Delivery Method Room Air Weight Weight: 249 lb 1.957 oz Body Mass Index (BMI) 36.8 Physical Exam Narrative Inspection: no purulence from incisions, limited tenderness to palpation. The incision over the A1 bruce of the long finger has some persistent fibrinous exudate and now some more exposed flexor tendon at the base of the wound. Tendon is healthy appearing without any signs of desiccation at this point. CT incision healed well. Long finger PIP joint incision healed. Motor: Able to bend and extend all MP, PIP, and DIP joints, however stiffness in the right long finger and unable to make a complete fist secondary to wounds, stiffness, and swelling. Sensory: Intact to light touch on the radial and ulnar borders. Vascular: Finger tips are warm and well perfused with <2 second capillary refill. Assessment & Plan Assessment/Plan (1) Open wound, hand: QUALIFIERS: Encounter type: subsequent encounter Laterality: right PLAN: I talked the patient extensively about the risks of surgery, including bleeding, infection, damage to surrounding structures, surgical site dehiscence and wound formation, need for wound care, need for repeat operations, failure to obtain the desired result, and the risks of anesthesia (albeit doing under local block). The benefits and alternatives of this surgery were also discussed. All of their questions were answered, and they agreed to proceed with surgery. INTERVAL H&P PLAN, DATE OF SURGERY: We will proceed with surgery today. Medicine is seeing patient for post-operative admission and [facility] will follow. Plan for infectious disease consultation and to follow up cultures.
--- NOTE | 2024-04-13 15:37 | PCM.OPRPT ---
Operative Report (Standard) Operative Information Surgery/Procedure Performed: 1) Sharp excision of 1 x 2 cm wound (necrotic fat and fibrinous exudate), CPT 75770 2) Delayed primary closure of surgical wound on right volar hand, CPT 95982 Surgeon: Sergio Edwards Date of Procedure: 04/13/24 Procedure Start Time: 19:46 Procedure Stop Time: 20:06 Pre-Operative Diagnosis: Right volar hand wound with exposed flexor tendons Post-Operative Diagnosis: same Select all DRAINS/GRAFTS/IMPLANTS that apply: None Type of Anesthesia: Local Estimated Blood Loss: minimal Fluids Replaced: none Specimen collected: Yes Description of specimen(s) removed: Culture taken (deep soft tissue) Description of surgery: INDICATIONS: Lisandro Quan is a 58 YO male with right hand wound s/p i&D for flexor tenosynovitis. Presents today for delayed primary closure and debridement. He had had trouble healing the volar hand incision and has been following up at the wound Care Center. He has exaposed flexor tendons, which I am worried about. Plan is to admit post-operatively for tight blood sugar control, f/u wound cultures/ID consultation, and monitoring of the hand wound. I'm concerned that if we do not attempt closure again, we will fail to get coverage over the flexor tendon and the tendon may desiccate /rupture. I talked the patient extensively about the risks of surgery, including bleeding, infection (especially after closure), damage to surrounding structures, surgical site dehiscence and wound formation, need for wound care, need for repeat operations, failure to obtain the desired result. The benefits and alternatives of this surgery were also discussed. All of their questions were answered, and they agreed to proceed with surgery. OPERATIVE DETAILS: Patient was correctly identified in preoperative holding and taken back to the operating room where he was administered a local block with 1% lidocaine (10 cc total). Once appropriate level of anesthesia was obtained, he was prepped and draped in sterile fashion and a timeout was performed. The volar right hand wound had fibrinous exudate on the edges and was significantly dehisced/open with exposed tendon at the base. Under loupe magnification, a 15 blade scalpel was used to carefully excise the fibrinous exudate and the necrotic tissue for an excision of 1 x 2 cm along the Shakira flaps. A small amount of tissue was sampled for cultures beneath the planned closure. Hemostasis was obtained with bipolar. The wound was irrigated with 450 cc of Irrisept followed by copious saline. The Shakira flap was then advanced into position over the tendon and the volar palm at the level of the A1 bruce and sutured into place with a 2-0 nylon suture for delayed primary closure of the surgical wound. Patient tolerated the procedure well and was awakened and taken to the PACU in stable condition. Surgical Findings: Healthy tendon at the base of the wound. Insurance Processing Clerk traffic operations engineer: No Complications Complications: No Admit VTE Documentation VTE Mechan Device Prophylaxis: SCD's
[2024-04-13 16:01] LABS: Bedside Glucose 100 mg/dL (74-106)
[2024-04-13] MEDS: Gabapentin 400 MG Capsule 800 MG PO (18:07)
[2024-04-13 19:31] VITALS: BP 112/70; BP 113/67; BP 114/68; BP 116/68; BP 119/70; BP 121/59; BP 123/73; O2SAT 91; O2SAT 92; O2SAT 93; O2SAT 94; O2SAT 95
[2024-04-13] MEDS: Cefazolin 2 GM in Syringe IV (19:34)
[2024-04-13] MEDS: Lidocaine 1% (30 ml sdv) 30 ML Vial (20:02)
--- NOTE | 2024-04-13 20:22 | CON.PCM.HO_ITS ---
Assessment & Plan Assessment/Plan (1) Infected hand: (2) Diarrhea: PLAN: Plan The patient is a 58 y/o M w/ PMHx: Hx TIA/CVA, COPD, Tobacco use, CAD s/p remote PCI, HTN, HLD, Hypothyroidism, Anxiety and Depression, Obesity, GERD, CANDELARIA on BIPAP q HS who presents to the [facility] for planned further intervention per his plastic surgeon Dr. Edwards secondary to history of staphylococcal flexor tenosynovitis unfortunately with serial surgical needs and nonhealing wounds with poorly controlled reported diabetes and ongoing tobacco use status post sharp excisional wound debridement with delayed primary closure of the right volar hand. #1. Right upper extremity nonhealing wound with previously noted Staphylococcus flexor tenosynovitis with previous surgical interventions given recurrent infections, nonhealing wound: Status post OR 04/13/[address] Edwards plastic surgeon with sharp excision and wound debridement with delayed primary closure of the surgical wound on the right volar hand, admitted to medical surgical floor given stable vital signs and no concerning events perioperatively, most recent cultures with decent sensitivities and per record has been on doxycycline which patient has been sensitive to per the most recent cultures, noted intention per plastic surgery to place on broad-spectrum with vancomycin until cultures from the OR resulted, will plan dressing changes and care per plastic surgery discretion, plan repeat CBC in AM, continue affected extremity elevation above heart when seated and in bed, monitor erythema outline with VS checks, as needed pain regimen, antiemetic regimen, weightbearing status to the right upper extremity per surgery discretion, PT/OT/case management consulted for discharge planning, given serial infections ID also consulted to assist. #2. Diarrhea, prolonged with intermittent abdominal discomfort with concern for possible streaks of blood in the stool: Given patient history and serial antibiotic therapy is highest concern is for C. difficile, will obtain C. difficile, enteric, guaiac, temporally holding aspirin and Plavix given recent operative intervention however given underlying cardiac history if his hemoglobin remained stable would resume especially since patient reports the history that this has been improving but will discontinue any chemoprophylaxis and continue SCDs only in the interim, maintain on IV PPI until further results obtained. If hemoglobin does remain stable but guaiac is positive then certainly could consider restarting Plavix and holding aspirin with consideration of possible outpatient scope if appropriate however if any decline in hemoglobin or worsening status then could certainly involve GI. Of note patient did have recent 04/08/2024 labs which included a negative C. difficile test and negative enteric pathogen so he was started on antidiarrheals at that time but again we will check given the timeline to be certain especially given ongoing antibiotic therapy. Patient also had 04/09/2024 CT abdomen and pelvis with IV contrast with numerous colonic air-fluid levels consistent with possible colonic ileus versus diarrhea with no evidence of any bowel obstruction, normal appendix, hepatic steatosis, interval development 14 mm unilocular cystic lesion within the pancreatic tail with recommended follow-up CT/MRI for appropriate protocol outpatient. #3. Diabetes mellitus type II, reported poorly controlled with chronic neuropathy: Will hold oral home regimen, hemoglobin A1c requested and will aakash nue to monitor blood sugars to ascertain if long-acting should be added, in the interim maintain on ADA diet, accu checks w/ ISS, nutrition consulted per plastic surgery for education and teaching. Will continue patient home gabapentin regimen. #4. Chronic COPD with allergic rhinitis: Will temporally hold home inhaler and in the interim maintain on ATC budesonide therapy PRN albuterol, HOB, IS parameters, continue patient home fluticasone regimen. #5. CAD: Status post PCI remotely 2015, temporarily holding aspirin and Plavix given recent surgery, will resume 04/14/2020 for per discussion with surgery however ongoing evaluation as noted of diarrhea with some blood noted in the stools, appears to be clearing per patient report but to be cautious evaluation ongoing as noted, may need to temporarily hold at least the aspirin but will further assess as noted above. #6. History CVA: Temporally holding aspirin and Plavix as noted, add back once clinically appropriate and further evaluation of blood noted in his diarrhea, continue hypertensive regimen as able, continue statin therapy, continue diabetic treatments with adjustments as noted. #7. Hypertension: Continue home regimen including losartan, isosorbide, Lasix with hold parameters as needed, PRN hydralazine. #8. Hyperlipidemia: We will continue patient on statin therapy. #9. Hypothyroidism: Wilkening patient on levothyroxine regimen. #10. Anxiety and depression: We will continue patient home duloxetine and mirtazapine home regimen. #11. Tobacco Abuse: Encouraged cessation, inpatient consultation per RT, NR if desired. #12. Obesity: Weight loss and lifestyle changes encouraged. Nutrition consulted per plastic surgery for education and teaching. #13. GERD: Given history will temporally maintain on IV PPI as noted twice daily until further workup is obtained, transition back to oral regimen once appropriate; however, will need to be cautious as if patient is positive for C. difficile may need to consider alternate options, work on gut health/bile. #14. Tobacco Abuse: Encouraged cessation, inpatient consultation per RT, NR if desired. #15. CANDELARIA: BiPAP nightly. #16. DVT prophylaxis: Will maintain on SCDs only, defer chemoprophylaxis and holding aspirin and Plavix temporarily given recent surgery but also questionable recent history of bouts of diarrhea with blood in the stool. #17. CODE status: Patient does not have healthcare power of deputy county attorney or living will in place but he notes if medical decisions needed to be made he would want his to be decision-maker. Discussed CODE status at length including difference between FULL code, DNR-CCA and DNR-CC status. Following discussions about the differences in these status, requested and very specifically requested DNR-CCA, no intubation. Discussed even the possibility that only his breathing would be affected but he stated if he stopped breathing he would still want to pass naturally and not have intubation performed. Advanced Care Planning Face to Face Time: 16 minutes. HPI Consult Data Date of Consult: 04/13/24 HPI Narrative Reason for Consultation: Medical management HPI Narrative: The patient is a 58 y/o M w/ PMHx: Hx TIA/CVA, COPD, Tobacco use, CAD s/p remote PCI, HTN, HLD, Hypothyroidism, Anxiety and Depression, Obesity, GERD, CANDELARIA on BIPAP q HS who presents to the [facility] for planned further intervention per his plastic surgeon Dr. Edwards secondary to history of staphylococcal flexor tenosynovitis unfortunately with serial surgical needs and nonhealing wounds with poorly controlled reported diabetes and ongoing tobacco use status post sharp excisional wound debridement with delayed primary closure of the right volar hand. In PACU patient denies any pain and notes being hungry. He does state over the last 2 weeks he has had loose stools but they seem to be more formed now and he does report that he is occasionally had blood in the stools. He notes he is occasionally had an associated sharp upper mid abdominal discomfort but is just been very transient and resolves very quickly with no constant abdominal discomfort nor any nausea or emesis nor fevers or chills. He has been on a significant amount of antibiotic therapy and did have 04/08/2024 and 04/09/2024 enteric pathogen and C. difficile which was negative and has been using antidiarrheal regimen with some success. Patient also had 04/09/2024 CT abdomen and pelvis with IV contrast with numerous colonic air-fluid levels consistent with possible colonic ileus versus diarrhea with no evidence of any bowel obstruction, normal appendix, hepatic steatosis, interval development 14 mm unilocular cystic lesion within the pancreatic tail with recommended follow- up CT/MRI for appropriate protocol outpatient. COUNTS INCLUDE 234 BEDS AT THE [facility] Medical History Insulin dependent diabetes mellitus Arthritis Kidney stone TIA (transient ischemic attack) Seizures Gastric reflux Hypertension History of CVA in adulthood Antiplatelet or antithrombotic long-term use Flexor tenosynovitis of finger Wears glasses No natural teeth Diabetes Thyroid disease High cholesterol Blackout History of GI bleed Smoker BiPAP (biphasic positive airway pressure) dependence Sleep apnea Shortness of breath on exertion Chronic cough History of edema Leg cramps History of stress test Cardiology follow-up encounter Elevated LFTs Back pain Dorsalgia of thoracolumbar region Patellofemoral arthritis of right knee Bilateral knee pain Situational syncope Chest pain, unspecified Type 2 diabetes mellitus Essential hypertension Pneumonia due to other streptococci Atherosclerosis of coronary artery of [place] heart without angina pectoris Right bundle-branch block Gastroesophageal reflux disease Hypertriglyceridemia Obstructive sleep apnea Body mass index (BMI) 35 or more Tobacco abuse COPD (chronic obstructive pulmonary disease) MASON (dyspnea on exertion) Morbid obesity due to excess calories Localized edema Long-term use of high-risk medication Hyperlipidemia Difficulty swallowing Stage 2 moderate COPD by GOLD classification Sinus drainage Home Medications ?Medication ?Instructions ?Recorded ?Last Taken ?Type albuterol sulfate 90 mcg/actuation 6.7 g inhalation PRN PRN Wheezing 12/06/14 04/13/24 History aerosol inhaler ergocalciferol (vitamin D2) 1,250 50,000 unit PO Q7D SUPPLEMENT 12/06/14 04/12/24 History mcg (50,000 unit) capsule fluticasone propionate 50 1 spray NASAL DAILY ALLERGIES 05/05/16 04/10/24 History mcg/actuation nasal spray,suspension aspirin 81 mg tablet,delayed 81 mg PO DAILY HEART 08/11/19 04/12/24 History release duloxetine 60 mg capsule,delayed 60 mg PO DAILY MOOD 08/11/19 04/12/24 History release levothyroxine 50 mcg tablet 75 mcg PO DAILY THYROID 08/11/19 04/12/24 History losartan 50 mg tablet 25 mg PO QDAY BLOOD PRESSURE 08/11/19 04/12/24 History mirtazapine 15 mg tablet 45 mg PO QHS SLEEP AND RLS 08/11/19 04/12/24 History multivitamin 1 cap PO DAILY SUPPLEMENT 08/11/19 04/12/24 History nitroglycerin 0.4 mg sublingual 0.4 mg sublingual ONCE PRN chest 08/11/19 Unknown History tablet (Nitrostat) pain budesonide-formoterol HFA 160 2 puff inhalation BID COPD #10.2 12/05/19 04/12/24 Rx mcg-4.5 mcg/actuation aerosol grams inhaler clopidogrel 75 mg tablet 75 mg PO QDAY BLOOD THINNER #90 12/29/19 04/11/24 Rx tabs furosemide 40 mg tablet (Lasix) 60 mg PO DAILY WATER PILL 11/15/20 03/22/24 History metformin 1,000 mg tablet 1,000 mg PO BID DIABETES 11/15/20 04/12/24 History isosorbide mononitrate 60 mg 30 mg (1/2 x 60 mg) PO BID HEART 12/03/21 03/23/24 Rx tablet,extended release 24 hr #90 tabs omeprazole 40 mg capsule,delayed 40 mg PO DAILY GERD 1 month #30 06/05/23 04/13/24 Rx release caps rosuvastatin 20 mg tablet 20 mg PO QHS CHOLESTEROL 1 month 06/05/23 04/12/24 Rx #30 tabs empagliflozin 25 mg tablet 25 mg PO DAILY DAIBETES #30 tabs 11/24/23 04/12/24 Rx (Jardiance) fluticasone fur. 100 mcg-umeclid 1 ea inhalation DAILY copd 03/07/24 04/12/24 History 62.5 mcg-vilant 25 mcg inhalat.powder (Trelegy Ellipta) gabapentin 800 mg tablet 800 mg PO TID pain 03/07/24 04/13/24 History doxycycline monohydrate 100 mg 100 mg PO BID ANTIBIOTIC 03/22/24 04/11/24 History capsule dulaglutide 1.5 mg/0.5 mL 1.5 mg subcut QWEEK DIABETES 03/22/24 04/10/24 History subcutaneous pen injector (Trulicity) insulin glargine 100 unit/mL (3 1 unit subcut QHS PRN IF NEEDED 03/22/24 03/21/24 History mL) subcutaneous pen (Basaglar FOR BS KwikPen U-100 Insulin) dicyclomine 10 mg capsule 20 mg (2 x 10 mg) PO TIDAC ABD 04/09/24 04/12/24 Rx PAIN #20 CAPSULES diphenoxylate-atropine 2.5 2 tab PO TID PRN diarrhea #20 tabs 04/10/24 Unknown Rx mg-0.025 mg tablet (Lomotil) Allergy/AdvReac Type Severity Reaction Status Date / Time No Known Allergies Allergy Verified 04/13/24 14:49 Family History Father CVA (cerebral vascular accident) Brother CAD (coronary artery disease) Diabetes Mother COPD (chronic obstructive pulmonary disease) Sarcoidosis Surgical History History of hand surgery History of cardiac catheterization S/P laparoscopic cholecystectomy H/O umbilical hernia repair History of coronary artery stent placement (~03/25/16) History of carpal tunnel surgery of right wrist History of left heart catheterization Social History (Updated 04/13/24 @ 21:[address] Nicky Nuñez MD) household members: spouse current occupational status: disabled Smoking Status: Current every day smoker tobacco type: cigarettes Smoking packs per day: 1 Smoking cigarettes per day: 20.0 Tobacco: How many years used: 30 second hand exposure: Yes alcohol intake: never substance use type: does not use caffeine: Yes Type: coffee Number of servings: 2 what type of physical activity do you participate in: none ROS ROS Narrative Admission Review of Systems: CONSTITUTIONAL: No weight loss, fever, chills, + weakness or fatigue. HEENT: Eyes: No visual loss, blurred vision, double vision or yellow sclerae. Ears, Nose, Throat: No hearing loss, sneezing, congestion, runny nose or sore throat. SKIN: No rash or itching, lesions except + nonhealing wound to the right volar aspect. CARDIOVASCULAR: + Mild chronic distal edema. No chest pain, chest pressure or chest discomfort, palpitations, orthopnea, syncopal events. RESPIRATORY: + Chronic exertional dyspnea, occasional cough, occasional wheezing. No current productive sputum or hemoptysis. GASTROINTESTINAL: + Occasional intermittent abdominal discomfort, diarrhea, occasional blood noted in the stools although improving. No anorexia, nausea, emesis. GENITOURINARY: No dysuria, frequency, urgency or retention. NEUROLOGICAL: No headache, dizziness, syncope, paralysis, ataxia, numbness or tingling in the extremities, focal weakness, change in bowel or bladder control, seizure. MUSCULOSKELETAL: + muscle, back pain, joint pain or stiffness. HEMATOLOGIC: No anemia. + Easy bleeding/bruising. LYMPHATICS: No enlarged nodes. No history of splenectomy. PSYCHIATRIC: + History of anxiety and depression. ENDOCRINOLOGIC: No reports of sweating, cold or heat intolerance. No polyuria or polydipsia. ALLERGIES: + History of allergic rhinitis. Physical Exam Narrative Physical Examination: General: Awake, alert, oriented x 3 and cooperative, laying in the EC bed, no acute distress, denies any pain to the right hand status post recent OR nor any pain to his abdomen. Skin: Normal color, normal turgor, no icterus, no cyanosis except recent OR with dressing in place without drainage, bilateral lower extremity venous stasis skin changes. HEENT: AT/NC, EOMI, PERRLA, mildly dry MM, no carotid bruits or JVD noted; however thickened neck makes evaluation difficult. Lungs: Mildly diminished, greater bases, appropriate effort, no rales, ronchi or wheezing. Heart: Regular rate and rhythm; no gallop, rub audible. Abdomen: Soft, obese, NTTP, ND, mildly hyperactive BS, difficult to appreciate HSM given habitus. Extremities: No cyanosis, no clubbing, see skin, bilateral ankle to distal lucas minimally pitting edema. Neurological: Patient awake, alert, oriented as noted, cognitive function intact; pupils equally reactive to light and accommodation, cranial nerves grossly normal, moving all 4 extremities including operative extremity, strength moderately globally decreased given recent operative intervention. Psychiatric: Affect appears fatigued otherwise normal, no acute evidence of depressive or anxiety feelings but does have underlying history. Lab / Micro Data Labs: Laboratory Results - last 24 hr 04/13/24 14:47: POC Glucose 100 Charges/Coding Multi Select Codes Visit Charges Office Visit/Consults: 65091 IP Consult L4 Hospitalists' Procedures Procedures: 85702 Advncd Care Plan 30 Min
[2024-04-13 20:28] VITALS: BP 122/57; PULSE 69; RESP 16; TEMP 36.8; O2SAT 92
[2024-04-13 20:49] VITALS: BMI 36.6
[2024-04-13] MEDS: oxyCODONE 5 MG Tablet PO (21:09)
[2024-04-13] MEDS: Acetaminophen 325 MG Tablet 650 MG PO (21:09)
[2024-04-13 21:12] VITALS: BP 114/55; PULSE 66; RESP 16; TEMP 36.6; O2SAT 92
[2024-04-13] MEDS: Pantoprazole Sodium 40 MG in 0.9% Normal Saline (100mL MB+) 100 ML 330 MG IV (21:34)
[2024-04-13] MEDS: Isosorbide Mononitrate 30 MG Tablet PO (21:37)
[2024-04-13] MEDS: Mirtazapine 15 MG Tablet 45 MG PO (21:37)
[2024-04-13] MEDS: Atorvastatin Calcium 40 MG Tablet PO (21:37)
[2024-04-13] MEDS: Gabapentin 800 MG Tablet PO (21:39)
[2024-04-13] MEDS: Vancomycin HCl 2,000 MG in 0.9% Normal Saline (500mL Bag) 500 ML 250 MG IV (22:22)
[2024-04-13 22:49] LABS: Bedside Glucose 109 mg/dL (74-106)
[2024-04-14] VITALS (12 sets, daily range): BP systolic 104–124; BP diastolic 60–79; PULSE 51–63; RESP 12–18; TEMP 36.4–36.8; O2SAT 89–98
[2024-04-14] MEDS: Acetaminophen 325 MG Tablet 650 MG PO ×2 (05:29→16:11)
[2024-04-14] MEDS: oxyCODONE 5 MG Tablet PO ×3 (05:29→16:10)
[2024-04-14] MEDS: Gabapentin 800 MG Tablet PO ×3 (05:29→22:55)
[2024-04-14] MEDS: Levothyroxine 75 MCG Tablet PO (05:40)
[2024-04-14] MEDS: Dicyclomine 10 MG Capsule 20 MG PO ×3 (06:45→16:07)
[2024-04-14 07:08] LABS: Absolute Lymphocyte Count 2.41 X10^3/uL (0.83-4.51); Absolute Neutrophil Count 1.6 X10^3/uL (2.0-7.7); Basophil# 0.03 X10^3/uL; Basophil% 0.5 % (0-1); Eosinophil# 1.29 X10^3/uL; Eosinophils% 22.2 % (0-5); Hematocrit 40.8 % (40-54); Hemoglobin 13.9 g/dL (13.0-16.5); Lymphocyte # 2.41 X10^3/ul (0.83-4.51); Lymphocyte % 41.6 % (19-41); Mean Corp Hgb Conc 34.1 g/dL (32-36); Mean Corpuscular Hgb 33.8 pg (27.0-32.0); Mean Corpuscular Volume 99.3 fL (80-94); Mean Platelet Vol. 11.9 fl (6.2-12.0); Monocyte# 0.42 X10^3/uL; Monocyte% 7.2 % (0-10); NRBC Flagged by Analyzer 0 % (0-5); Neutrophil # 1.64 X10^3/uL (2.7-7.7); Neutrophil % 28.3 % (47-70); Platelet Count 109 K/mm3 (150-450); RBC Distribution Width CV 13.8 % (11.6-14.6); RBC Distribution Width SD 50.1 fl (35.1-43.9); Red Blood Count 4.11 M/mm3 (4.6-6.2); White Blood Count 5.8 K/mm3 (4.4-11.0)
[2024-04-14 07:13] LABS: Bedside Glucose 108 mg/dL (74-106)
[2024-04-14] MEDS: Budesonide Respules 0.5 MG/2 ML AMPUL.NEB. INHALATION ×2 (07:17→18:48)
[2024-04-14 07:50] LABS: Anion Gap 5 (5-15); BUN 17 mg/dL (7-18); BUN/Creat Ratio 24.4 RATIO (10-20); Chloride 110 mmol/L (98-107); EST Glomerular Filtration Rate 124 mL/min (>60); Est Glom Filt Rate - Afr Amer 150 mL/min (>60); Estimated Creatinine Clearance 143.97 ml/min; Glucose 116 mg/dL (74-106); Potassium 3.5 mmol/L (3.5-5.1); Sodium Level 141 mmol/L (136-145)
--- NOTE | 2024-04-14 08:05 | PCM.RX.CS ---
Consult Antibiotic Management Pharmacy has been consulted to manage selected antibiotic: Vancomycin Type of Intervention Type of Consult: New start Suspected Infection Suspected Infection: Skin/Soft tissue Labs Labs: Sodium 141 mmol/L (136-145) 04/14/24 06:25 Potassium 3.5 mmol/L (3.5-5.1) 04/14/24 06:25 Chloride 110 mmol/L (98-107) H 04/14/24 06:25 Carbon Dioxide 26.0 mmol/L (21.0-32.0) 04/14/24 06:25 Anion Gap 5 (5-15) 04/14/24 06:25 BUN 17 mg/dL (7-18) 04/14/24 06:25 Creatinine 0.70 mg/dL (0.70-1.30) 04/14/24 06:25 Est GFR (MDRD) Af Amer 150 mL/min (>60) 04/14/24 06:25 Est GFR (MDRD) Non-Af 124 mL/min (>60) 04/14/24 06:25 BUN/Creatinine Ratio 24.4 RATIO (10-20) H 04/14/24 06:25 Glucose 116 mg/dL (74-106) H 04/14/24 06:25 Microbiology Microbiology: Microbiology 04/13/24 22:00 Stool Clostridioides difficile (PCR) - Final Goal Trough Goal Trough: 15-20 mcg/mL Pharmacy Plan for Drug Dosing Pharmacy Plan for Drug Dosing: NEW START IV VANCOMYCIN Consulting Physician: Dr. Edwards Indication: RUE Wound Goal Trough: 15-20 SrCr: 0.7 CrCl: 143 mL/min Comments: Patient ordered a loading dose of 2g IV x1 administered 04/13/24 @2222 Vancomycin Dose: 1500mg IV Q8h to start 04/14/24 @0800 Pending Level: 04/14/24 @2330 Pharmacy Service will continue to monitor and adjust dosing as required.
[2024-04-14] MEDS: Fluticasone 0.05% 1 SPRAY NASAL.SRY NASAL (08:08)
[2024-04-14] MEDS: Furosemide 20 MG Tablet 60 MG PO (08:19)
[2024-04-14] MEDS: DULoxetine Hcl 60 MG Capsule PO (08:21)
[2024-04-14] MEDS: Losartan Potassium 25 MG Tablet PO (08:21)
[2024-04-14] MEDS: Isosorbide Mononitrate 30 MG Tablet PO (08:21)
--- NOTE | 2024-04-14 08:25 | WOUNDNOTE ---
wound photo: right hand
[2024-04-14] MEDS: Pantoprazole Sodium 40 MG in 0.9% Normal Saline (100mL MB+) 100 ML 330 MG IV ×2 (08:29→22:55)
[2024-04-14] MEDS: Ensure Plus High Protein 120 ML LIQUID PO ×3 (08:29→16:12)
[2024-04-14] MEDS: FLU VACC 2024-25(6MOS UP)/PF 45 MCG/0.5 ML SYRINGE IM (08:30)
[2024-04-14] MEDS: Vancomycin HCl 1,500 MG in 0.9% Normal Saline (500mL Bag) 500 ML 250 MG IV ×2 (09:29→16:10)
[2024-04-14] MEDS: Menthol/Lanolin/Calamine/Znox 113 GM Tube 1 APPLIC TOPICAL (09:31)
[2024-04-14 10:04] LABS: Hemoglobin A1c 6.4 % (3.8-5.6)
[2024-04-14] MEDS: Insulin Lispro 100 UNIT/ML INSULN.PEN SC ×2 (11:08→23:01)
[2024-04-14 11:30] LABS: Bedside Glucose 209 mg/dL (74-106)
--- NOTE | 2024-04-14 13:33 | PCM.PN.BLA ---
Progress Note Doing well overall. Pain controlled. Eating O.K. No n/v Reported some blood in stool. The medicine team is following and working up hematochezia. Reports he was still smoking at home until yesterday (admission) Physical Exam Narrative Right upper extremity INSPECTION: Dressing removed. No purulence. Incisions clean/dry/intact. Motor: Able to bend and extend all MP, PIP, and DIP joints. Able to fire thenar eminence Sensory: Intact to light touch on the radial and ulnar borders. Vascular: Finger tips are warm and well perfused with <2 second capillary refill. Const alert and oriented x3 Eyes EOMs intact bilaterally Neck full ROM Chest inspection of chest normal Resp normal respiratory effort Cardio regular rate Extremity full ROM Extremity Narrative: SCDs on and activated Assessment & Plan Assessment/Plan (1) Infected hand: PLAN: Neuro: Continue tylenol and roxicodone PRN Resp: Respiratory therapy and inhalors, PRN. Discussed smoking cessation. Cardiac/Vascular: ASA and Plavix restarted today Abdomen: Medicine consult working up blood in stool. F/u recommendations FEN: Regular Diet, Daily BMPs Endocrine: Synthroid daily. A1c 6.4%. Continue tight glucose control with SS (appreciate medicine team recommendations) Infectious disease: Consulted ID, continue Vancomycin for now. F/u cultures from OR yesterday Hem: SCDs and Loveonx for DVT prophylaxis Renal: Cr wnl Consults: Medicine, Infectious Disease (appreciate recommendations) Procedures Integumentary [id number]: 08274 Global Visit
--- NOTE | 2024-04-14 15:20 | CASEMGMT ---
CORRY KING Readmission Note Previous Admission: 03/06/24-03/15/24 Diagnosis: flexor tenosynovitis DC Disposition: Home Current Admission: Admitted 04/13/24 Current Diagnosis: hand infection Pt dc'd from index admission after 2 surgeries with . Pt went home with plan for soaks and dressing change on own with oral antibiotics and follow up at [facility]. CORRY KING into pt room, pt lying in bed in no distress. Pt states he was doing his soaks and dressing changes as ordered. Pt had been following up with at the [facility] weekly. Pt states he did stop taking the doxycyline as it was messing up my bowels. Pt states that he did not notify Dr. Edwards of this. He states he was eating yogurt and taking a probiotic and eating sauerkraut. Pt has not yet seen his primary care as he states he has been busy with other appts. Pt will schedule this appt out. Pt uses a walker and cane at home. Pt did have OR yesterday. Plastics to follow, ID is consulted. Pt is aware that should he dc on atb and he decides he cannot tolerate to notify Dr. Edwards. Pt does not foresee any homegoing needs at this time. CORRY KING to cont to follow. DC Plan: Home
--- NOTE | 2024-04-14 15:43 | PCM.CONS.GEN ---
Assessment & Plan Assessment/Plan (1) Infected hand: PLAN: Prior cx (+) mssa. Now s/p I&D 04/13/[address] Edwards. Surg cx pending, on empiric vanc. Will follow, thank you HPI Consult Data Date of Consult: 04/14/24 HPI Narrative Reason for Consultation: tendon infection HPI Narrative: ONELIA REED, is a 58 M who had been taken to OR 03/06/[address] Edwards for I&D of R middle finger. Surg cx with MSSA. Given cefazolin, then discharged on 3 weeks po doxy at discharge. Still with exposed tendon, no fever, no new redness or pain. Taken to OR 04/13/24 for I&D, feeling ok, now on iv vanc. Full ROS performed and neg except as noted above. [facility] Medical History Insulin dependent diabetes mellitus Arthritis Kidney stone TIA (transient ischemic attack) Seizures Gastric reflux Hypertension History of CVA in adulthood Antiplatelet or antithrombotic long-term use Flexor tenosynovitis of finger Wears glasses No natural teeth Diabetes Thyroid disease High cholesterol Blackout History of GI bleed Smoker BiPAP (biphasic positive airway pressure) dependence Sleep apnea Shortness of breath on exertion Chronic cough History of edema Leg cramps History of stress test Cardiology follow-up encounter Elevated LFTs Back pain Dorsalgia of thoracolumbar region Patellofemoral arthritis of right knee Bilateral knee pain Situational syncope Chest pain, unspecified Type 2 diabetes mellitus Essential hypertension Pneumonia due to other streptococci Atherosclerosis of coronary artery of ruby heart without angina pectoris Right bundle-branch block Gastroesophageal reflux disease Hypertriglyceridemia Obstructive sleep apnea Body mass index (BMI) 35 or more Tobacco abuse COPD (chronic obstructive pulmonary disease) MASON (dyspnea on exertion) Morbid obesity due to excess calories Localized edema Long-term use of high-risk medication Hyperlipidemia Difficulty swallowing Stage 2 moderate COPD by GOLD classification Sinus drainage Home Medications ?Medication ?Instructions ?Recorded ?Last Taken ?Type albuterol sulfate 90 mcg/actuation 6.7 g inhalation PRN PRN Wheezing 12/06/14 04/13/24 History aerosol inhaler ergocalciferol (vitamin D2) 1,250 50,000 unit PO Q7D SUPPLEMENT 12/06/14 04/12/24 History mcg (50,000 unit) capsule fluticasone propionate 50 1 spray NASAL DAILY ALLERGIES 05/05/16 04/10/24 History mcg/actuation nasal spray,suspension aspirin 81 mg tablet,delayed 81 mg PO DAILY HEART 08/11/19 04/12/24 History release duloxetine 60 mg capsule,delayed 60 mg PO DAILY MOOD 08/11/19 04/12/24 History release levothyroxine 50 mcg tablet 75 mcg PO DAILY THYROID 08/11/19 04/12/24 History losartan 50 mg tablet 25 mg PO QDAY BLOOD PRESSURE 08/11/19 04/12/24 History mirtazapine 15 mg tablet 45 mg PO QHS SLEEP AND RLS 08/11/19 04/12/24 History multivitamin 1 cap PO DAILY SUPPLEMENT 08/11/19 04/12/24 History nitroglycerin 0.4 mg sublingual 0.4 mg sublingual ONCE PRN chest 08/11/19 Unknown History tablet (Nitrostat) pain budesonide-formoterol HFA 160 2 puff inhalation BID COPD #10.2 12/05/19 04/12/24 Rx mcg-4.5 mcg/actuation aerosol grams inhaler clopidogrel 75 mg tablet 75 mg PO QDAY BLOOD THINNER #90 12/29/19 04/11/24 Rx tabs furosemide 40 mg tablet (Lasix) 60 mg PO DAILY WATER PILL 11/15/20 03/22/24 History metformin 1,000 mg tablet 1,000 mg PO BID DIABETES 11/15/20 04/12/24 History isosorbide mononitrate 60 mg 30 mg (1/2 x 60 mg) PO BID HEART 12/03/21 03/23/24 Rx tablet,extended release 24 hr #90 tabs omeprazole 40 mg capsule,delayed 40 mg PO DAILY GERD 1 month #30 06/05/23 04/13/24 Rx release caps rosuvastatin 20 mg tablet 20 mg PO QHS CHOLESTEROL 1 month 06/05/23 04/12/24 Rx #30 tabs empagliflozin 25 mg tablet 25 mg PO DAILY DAIBETES #30 tabs 11/24/23 04/12/24 Rx (Jardiance) fluticasone fur. 100 mcg-umeclid 1 ea inhalation DAILY copd 03/07/24 04/12/24 History 62.5 mcg-vilant 25 mcg inhalat.powder (Trelegy Ellipta) gabapentin 800 mg tablet 800 mg PO TID pain 03/07/24 04/13/24 History doxycycline monohydrate 100 mg 100 mg PO BID ANTIBIOTIC 03/22/24 04/11/24 History capsule dulaglutide 1.5 mg/0.5 mL 1.5 mg subcut QWEEK DIABETES 03/22/24 04/10/24 History subcutaneous pen injector (Trulicity) insulin glargine 100 unit/mL (3 1 unit subcut QHS PRN IF NEEDED 03/22/24 03/21/24 History mL) subcutaneous pen (Basaglar FOR BS KwikPen U-100 Insulin) dicyclomine 10 mg capsule 20 mg (2 x 10 mg) PO TIDAC ABD 04/09/24 04/12/24 Rx PAIN #20 CAPSULES diphenoxylate-atropine 2.5 2 tab PO TID PRN diarrhea #20 tabs 04/10/24 Unknown Rx mg-0.025 mg tablet (Lomotil) Allergy/AdvReac Type Severity Reaction Status Date / Time No Known Allergies Allergy Verified 04/13/24 14:49 Family History Father CVA (cerebral vascular accident) Brother CAD (coronary artery disease) Diabetes Mother COPD (chronic obstructive pulmonary disease) Sarcoidosis Surgical History History of hand surgery History of cardiac catheterization S/P laparoscopic cholecystectomy H/O umbilical hernia repair History of coronary artery stent placement (~03/25/16) History of carpal tunnel surgery of right wrist History of left heart catheterization Social History (Updated 04/13/24 @ 21:[address] Nicky Nuñez MD) household members: spouse current occupational status: disabled Smoking Status: Current every day smoker tobacco type: cigarettes Smoking packs per day: 1 Smoking cigarettes per day: 20.0 Tobacco: How many years used: 30 second hand exposure: Yes alcohol intake: never substance use type: does not use caffeine: Yes Type: coffee Number of servings: 2 what type of physical activity do you participate in: none Physical Exam Const alert, oriented x3 and no apparent distress General Appearance: cooperative HEENT normocephalic and head/scalp atraumatic Eyes PERRL and EOMs intact bilaterally Neck supple and No nodes Resp normal air movement and clear to auscultation bilaterally Cardio regular rate and regular rhythm GI soft to palpation, non-tender and non-distended Extremity General Extremity: Negative for edema Skin Skin Narrative: R hand wrapped Neuro CN's II-XII intact bilaterally Lab / Micro Data Attestation: I reviewed the patient's lab results. 04/14/24 06:25 04/14/24 06:25 Labs: Laboratory Results - last 24 hr 04/13/24 14:47: POC Glucose 100 04/13/24 22:25: POC Glucose 109 H 04/14/24 06:25: WBC 5.8, RBC 4.11 L, Hgb 13.9, Hct 40.8, MCV 99.3 H, MCH 33.8 H, MCHC 34.1 D, RDW Std Deviation 50.1 H, RDW Coeff of Autumn 13.8, Plt Count 109 L, MPV 11.9, Immature Gran % (Auto) 0.200, Neut % (Auto) 28.3 L, Lymph % (Auto) 41.6 H, Fallon % (Auto) 7.2, Eos % (Auto) 22.2 H, Baso % (Auto) 0.5, Absolute Neuts (auto) 1.6 L, Absolute Lymphs (auto) 2.41, Nucleated RBC % 0, Sodium 141, Potassium 3.5, Chloride 110 H, Carbon Dioxide 26.0, Anion Gap 5, BUN 17, Creatinine 0.70, Estim Creat Clear Calc 143.97, Est GFR (MDRD) Af Amer 150, Est GFR (MDRD) Non-Af 124, BUN/Creatinine Ratio 24.4 H, Glucose 116 H, Hemoglobin A1c 6.4 H, Calcium 8.0 L, Magnesium 2.0 04/14/24 06:45: POC Glucose 108 H 04/14/24 11:05: POC Glucose 209 H Micro: Microbiology 04/13/24 22:00 Stool Enteric Bacteriology - Final 04/13/24 22:00 Stool Clostridioides difficile (PCR) - Final 04/13/24 Unknown Tissue - Hand Gram Stain - Final
[2024-04-14 16:24] LABS: Bedside Glucose 100 mg/dL (74-106)
--- NOTE | 2024-04-14 16:51 | PCM.PN.HOSP ---
Reason for Visit Reason for Visit: Diagnoses Local infection of the skin and subcutaneous tissue, unspecified (04/13/24) Diarrhea, unspecified (04/13/24) Unspecified open wound of unspecified hand, initial encounter (04/13/24) Subjective Subjective Patient was seen and examined today, blood sugar this afternoon was 100, patient voices no complaints of severe right hand pain. Objective Data Objective Data Vital Signs: Vital Signs Temp Pulse Resp BP Pulse Ox O2 Del Method O2 Flow Rate 98.0 F 61 16 118/68 97 Room Air 2 04/14/24 16:43 04/14/24 16:43 04/14/24 16:43 04/14/24 16:43 04/14/24 16:43 04/14/24 16:43 04/14/24 07:14 FiO2 30 04/14/24 00:05 Oxygen Flow Rate (L/min) 2 Oxygen Delivery Method Room Air Weight: 112.5 kg Body Mass Index (BMI) 36.6 Intake & Output: Intake and Output for Last 24 Hours 04/12/24 04/13/24 04/14/24 23:59 23:59 23:59 Intake Total 130 / 430 2130 / 2130 Balance 130 / 430 2130 / 2130 Lab / Micro Data 04/14/24 06:25 04/14/24 06:25 Labs: Laboratory Results - last 24 hr 04/13/24 22:25: POC Glucose 109 H 04/14/24 06:25: WBC 5.8, RBC 4.11 L, Hgb 13.9, Hct 40.8, MCV 99.3 H, MCH 33.8 H, MCHC 34.1 D, RDW Std Deviation 50.1 H, RDW Coeff of Autumn 13.8, Plt Count 109 L, MPV 11.9, Immature Gran % (Auto) 0.200, Neut % (Auto) 28.3 L, Lymph % (Auto) 41.6 H, Edgar % (Auto) 7.2, Eos % (Auto) 22.2 H, Baso % (Auto) 0.5, Absolute Neuts (auto) 1.6 L, Absolute Lymphs (auto) 2.41, Nucleated RBC % 0, Sodium 141, Potassium 3.5, Chloride 110 H, Carbon Dioxide 26.0, Anion Gap 5, BUN 17, Creatinine 0.70, Estim Creat Clear Calc 143.97, Est GFR (MDRD) Af Amer 150, Est GFR (MDRD) Non-Af 124, BUN/Creatinine Ratio 24.4 H, Glucose 116 H, Hemoglobin A1c 6.4 H, Calcium 8.0 L, Magnesium 2.0 04/14/24 06:45: POC Glucose 108 H 04/14/24 11:05: POC Glucose 209 H 04/14/24 16:05: POC Glucose 100 Micro: Microbiology 04/13/24 22:00 Stool Enteric Bacteriology - Final 04/13/24 22:00 Stool Clostridioides difficile (PCR) - Final 04/13/24 Unknown Tissue - Hand Gram Stain - Final Physical Exam Const alert, oriented x3 and no apparent distress General Appearance: cooperative, well kempt and well developed Orientation / Consciousness: awake, oriented to person, oriented to place and oriented to time HEENT normocephalic, head/scalp atraumatic and moist oral mucous membranes Eyes PERRL, EOMs intact bilaterally and conjunctivae normal Neck supple, no JVD, thyroid normal and no carotid bruits General: trachea midline Resp normal respiratory effort, no retractions, no use of accessory muscles and clear to auscultation bilaterally Auscultation: Negative for rales, rhonchi or wheezes Cardio regular rate, regular rhythm, S1 normal heart sound, S2 normal heart sound, no murmurs, no rub and no gallops GI normal to inspection, nondistended, normoactive bowel sounds, soft to palpation, non-tender and non-distended Extremity Extremity Narrative: Patient's right hand is wrapped with surgical dressing, this was not removed for examination of the area. 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 Right hand infection involving the right long finger-continue antibiotic coverage per infectious diseases-patient is currently on vancomycin, plastic surgery is participating in his care #2 type 2 diabetes-continue to monitor blood sugars, sliding scale insulin will be used as needed #3 hyperlipidemia-patient remains on a statin at this time #4 essential hypertension-patient will remain on his current medications #5 coronary artery disease-patient will remain on some medications Total clinical time spent by myself addressing the patient's medical issues, reviewing all of his data, and collaborating with patient's care team: 35 minutes Charges/Coding Visit Charges Inpatient E&M: 30363 Subs Hosp L2
[2024-04-14] MEDS: Mirtazapine 15 MG Tablet 45 MG PO (22:52)
[2024-04-14] MEDS: Atorvastatin Calcium 40 MG Tablet PO (22:53)
[2024-04-15 00:18] LABS: Vancomycin, Trough Level 16.6 ug/mL (5.0-15.0)
[2024-04-15 00:24] LABS: Bedside Glucose 166 mg/dL (74-106)
[2024-04-15] MEDS: Vancomycin HCl 1,500 MG in 0.9% Normal Saline (500mL Bag) 500 ML 250 MG IV ×2 (00:39→08:00)
[2024-04-15] MEDS: Vancomycin Trough/Random Due 1 LAB MC (00:40)
--- NOTE | 2024-04-15 01:43 | PCM.RX.CS ---
Consult Antibiotic Management Pharmacy has been consulted to manage selected antibiotic: Vancomycin Type of Intervention Type of Consult: Follow-up Labs Labs: Sodium 141 mmol/L (136-145) 04/14/24 06:25 Potassium 3.5 mmol/L (3.5-5.1) 04/14/24 06:25 Chloride 110 mmol/L (98-107) H 04/14/24 06:25 Carbon Dioxide 26.0 mmol/L (21.0-32.0) 04/14/24 06:25 Anion Gap 5 (5-15) 04/14/24 06:25 BUN 17 mg/dL (7-18) 04/14/24 06:25 Creatinine 0.70 mg/dL (0.70-1.30) 04/14/24 06:25 Est GFR (MDRD) Af Amer 150 mL/min (>60) 04/14/24 06:25 Est GFR (MDRD) Non-Af 124 mL/min (>60) 04/14/24 06:25 BUN/Creatinine Ratio 24.4 RATIO (10-20) H 04/14/24 06:25 Glucose 116 mg/dL (74-106) H 04/14/24 06:25 Vancomycin Trough 16.6 ug/mL (5.0-15.0) H 04/14/24 23:35 Microbiology Microbiology: Microbiology 04/13/24 22:00 Stool Enteric Bacteriology - Final 04/13/24 22:00 Stool Clostridioides difficile (PCR) - Final 04/13/24 Unknown Tissue - Hand Gram Stain - Final Pharmacy Plan for Drug Dosing Pharmacy Plan for Drug Dosing: Pharmacy Service will continue to monitor and adjust dosing as required. TROUGH 16.6 @ 7.5 HOURS. NO CHANGES, FOLLOW UP TROUGH IN 2 DAYS Follow-Up Labs Follow-Up Labs: Trough: Vancomycin Date/Time Labs Ordered Labs to be done on [date and time ordered]: 04/16 @ 9058
[2024-04-15] MEDS: oxyCODONE 5 MG Tablet PO ×2 (03:53→11:06)
[2024-04-15] MEDS: Acetaminophen 325 MG Tablet 650 MG PO ×2 (03:54→11:06)
[2024-04-15 03:57] VITALS: BP 117/59; PULSE 57; RESP 16; TEMP 36.4; O2SAT 97
[2024-04-15] MEDS: Budesonide Respules 0.5 MG/2 ML AMPUL.NEB. INHALATION (06:54)
[2024-04-15] MEDS: Gabapentin 800 MG Tablet PO ×2 (06:59→14:35)
[2024-04-15] MEDS: Levothyroxine 75 MCG Tablet PO (06:59)
[2024-04-15] MEDS: Dicyclomine 10 MG Capsule 20 MG PO ×2 (06:59→11:01)
[2024-04-15 07:05] VITALS: PULSE 62; RESP 18
--- NOTE | 2024-04-15 07:33 | PCM.PN.BLA ---
Progress Note Patient doing well today. Reports some slight pain in hand, but improved with rest and elevation. Has been ambulating. Bowel movements are also more formed. Working with RT for breathing treatment and pulmonary toilet today on rounds. No SOB or chest pain. Physical Exam Narrative Right upper extremity INSPECTION: Dressing removed. No purulence. Incisions clean/dry/intact. Motor: Able to bend and extend all MP, PIP, and DIP joints. Able to fire thenar eminence Sensory: Intact to light touch on the radial and ulnar borders. Vascular: Finger tips are warm and well perfused with <2 second capillary refill. Const alert and oriented x3 Eyes EOMs intact bilaterally Neck full ROM Chest inspection of chest normal Resp normal respiratory effort Cardio regular rate Extremity full ROM Extremity Narrative: SCDs on and activated Assessment & Plan Assessment/Plan (1) Infected hand: PLAN: Neuro: Continue tylenol and roxicodone PRN Resp: Respiratory therapy and inhalers, PRN. Discussed smoking cessation. Cardiac/Vascular: ASA and Plavix restarted today Abdomen: Medicine consult working up blood in stool. F/u recommendations FEN: Regular Diet, Daily BMPs Endocrine: Synthroid daily. A1c 6.4%. Continue tight glucose control with SS (appreciate medicine team recommendations) Infectious disease: Consulted ID, continue Vancomycin for now. F/u cultures from OR (NGTD) Hem: SCDs and Lovenox for DVT prophylaxis. Ambulate today (discussed with nursing) Renal: Cr wnl Consults: Medicine, Infectious Disease (appreciate recommendations) Procedures Integumentary [id number]: [id number] Global Visit
--- NOTE | 2024-04-15 07:44 | NURSING ---
0800 vanc dose not on unit for pt administration
[2024-04-15 07:49] VITALS: O2SAT 95
[2024-04-15 07:52] VITALS: BP 112/80; PULSE 60; RESP 18; TEMP 36.6; O2SAT 97
[2024-04-15] MEDS: Ensure Plus High Protein 120 ML LIQUID PO (08:00)
[2024-04-15] MEDS: Losartan Potassium 25 MG Tablet PO (08:01)
[2024-04-15] MEDS: Furosemide 20 MG Tablet 60 MG PO (08:01)
[2024-04-15] MEDS: DULoxetine Hcl 60 MG Capsule PO (08:01)
[2024-04-15] MEDS: Isosorbide Mononitrate 30 MG Tablet PO (08:01)
[2024-04-15] MEDS: Fluticasone 0.05% 1 SPRAY NASAL.SRY NASAL (08:06)
[2024-04-15 09:48] VITALS: PULSE 60; RESP 18; O2SAT 97
[2024-04-15] MEDS: Pantoprazole Sodium 40 MG Tablet PO (11:00)
[2024-04-15 11:27] LABS: Bedside Glucose 115 mg/dL (74-106)
--- NOTE | 2024-04-15 13:27 | PN.HOSP_ITS ---
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 Objective Data Objective Data Vital Signs: Vital Signs Temp Pulse Resp BP Pulse Ox O2 Del Method O2 Flow Rate 97.8 F 60 18 112/80 97 Room Air 2 04/15/24 07:52 04/15/24 09:48 04/15/24 09:48 04/15/24 07:52 04/15/24 09:48 04/15/24 09:48 04/15/24 07:49 FiO2 30 04/14/24 23:52 Oxygen Flow Rate (L/min) 2 Oxygen Delivery Method Room Air Weight: 112.5 kg Body Mass Index (BMI) 36.6 Intake & Output: Intake and Output for Last 24 Hours 04/13/24 04/14/24 04/15/24 23:59 23:59 23:59 Intake Total 130 / 430 3420 / 3620 1783 / 1783 Balance 130 / 430 3420 / 3620 1783 / 1783 Lab / Micro Data 04/14/24 06:25 04/14/24 06:25 Labs: Laboratory Results - last 24 hr 04/14/24 16:05: POC Glucose 100 04/14/24 23:00: POC Glucose 166 H 04/14/24 23:35: Vancomycin Trough 16.6 H 04/15/24 11:09: POC Glucose 115 H Micro: Microbiology 04/13/24 Unknown Tissue - Hand Gram Stain - Final 04/13/24 Unknown Tissue - Hand Wound Culture - Preliminary No growth-Final to follow 04/13/24 22:00 Stool Enteric Bacteriology - Final 04/13/24 22:00 Stool Clostridioides difficile (PCR) - Final Physical Exam Narrative alert, oriented x3 and no apparent distress General Appearance: cooperative, well kempt and well developed Orientation / Consciousness: awake, oriented to person, oriented to place and oriented to time HEENT normocephalic, head/scalp atraumatic and moist oral mucous membranes Eyes PERRL, EOMs intact bilaterally and conjunctivae normal Neck supple, no JVD, thyroid normal and no carotid bruits General: trachea midline Resp normal respiratory effort, no retractions, no use of accessory muscles and clear to auscultation bilaterally Auscultation: Negative for rales, rhonchi or wheezes Cardio regular rate, regular rhythm, S1 normal heart sound, S2 normal heart sound, no murmurs, no rub and no gallops GI normal to inspection, nondistended, normoactive bowel sounds, soft to palpation, non-tender and non-distended Extremity Extremity Narrative: Patient's right hand is wrapped with surgical dressing, this was not removed for examination of the area. 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 Right hand infection involving the right long finger-continue antibiotic coverage per infectious diseases-patient is currently on vancomycin, plastic surgery is participating in his care #2 type 2 diabetes-continue to monitor blood sugars, sliding scale insulin will be used as needed #3 hyperlipidemia-patient remains on a statin at this time #4 essential hypertension-patient will remain on his current medications #5 coronary artery disease-patient will remain on some medications Total clinical time spent by myself addressing the patient's medical issues, reviewing all of his data, and collaborating with patient's care team: 25 minutes Charges/Coding Visit Charges Inpatient E&M: 36183 Subs Hosp L1
--- NOTE | 2024-04-15 13:31 | PCM.PN.ID ---
Physical Exam Narrative Feeling ok, wants to go home, no fever. Const alert and no apparent distress General Appearance: cooperative Resp normal air movement and clear to auscultation bilaterally Cardio regular rate and regular rhythm GI soft to palpation, non-tender and non-distended Skin no rashes or lesions noted Skin Narrative: hand wrapped ID ID: Route of nutrition/ use of supplements: [] Nutritional Intake: [] IV Site: [] Barr Catheter: [] Assessment & Plan Assessment/Plan (1) Infected hand: PLAN: Prior cx (+) mssa. Now s/p I&D 04/13/[address] Edwards. Surg cx ngtd, on empiric vanc. Did not tolerate doxy due to diarrhea. Will write for 10 days keflex for discharge today. Will follow
[2024-04-15 13:52] VITALS: BP 111/78; PULSE 60; RESP 18; TEMP 36.7; O2SAT 95
--- NOTE | 2024-04-15 14:31 | PCM.DC ---
Discharge Instructions Diet Discharge Diet: 1800 Calorie Control Diet Activity Discharge Activity: Return to Normal Activity Weight Bearing Status: Full weight bearing Follow Up Care Test Results: Test results from this visit will be discussed in further detail at your follow-up appointment, if applicable. Discharge Plan Admission Admit Date/Time: 04/13/24 20:29 Primary Reason for Your Visit: Right hand infection involving the right long finger Attending Provider: Sergio Edwards Primary Care Provider: Viola Gunderson [facility] Consulting Providers: Juan J Shipman; Sergio Levin; Nicky Nuñez Instructions Additional Instructions / Restrictions: Perform dialysis [place] on your right hand daily Discharge Orders/Prescriptions Prescriptions: New cephalexin 500 mg capsule 500 mg PO TID Qty: 30 0RF oxycodone 5 mg Tablet 5 - 10 mg PO Q4H PRN PRN (Reason: Pain Score 1-10) 5 Days Qty: 40 0RF Continued losartan 50 mg tablet 25 mg PO QDAY aspirin 81 mg tablet,delayed release (DR/EC) 81 mg PO DAILY duloxetine 60 mg capsule,delayed release(DR/EC) 60 mg PO DAILY nitroglycerin [Nitrostat] 0.4 mg tablet, sublingual 0.4 mg SUBLINGUAL ONCE PRN (Reason: chest pain) Rx Instructions: as a single dose; administer 5-10 minutes before situation known to precipitate angina attack multivitamin Capsule 1 cap PO DAILY rosuvastatin 20 mg tablet 20 mg PO QHS 30 Days Qty: 30 3RF omeprazole 40 mg capsule,delayed release(DR/EC) 40 mg PO DAILY 30 Days Qty: 30 2RF ergocalciferol (vitamin D2) 50,000 UNIT capsule 50,000 unit PO Q7D albuterol sulfate 6.7 GM HFA aerosol inhaler 6.7 g inhalation PRN PRN (Reason: Wheezing) levothyroxine 50 mcg tablet 75 mcg PO DAILY mirtazapine 15 mg tablet 45 mg PO QHS fluticasone propionate 1 SPRAY spray,suspension 1 spray NASAL DAILY Trelegy Ellipta 100-62.5-25 mcg blister with device 1 ea inhalation DAILY gabapentin 800 mg tablet 800 mg PO TID dicyclomine 10 mg capsule 20 mg PO TIDAC Qty: 20 0RF diphenoxylate-atropine [Lomotil] 2.5-0.025 mg tablet 2 tab PO TID PRN (Reason: diarrhea) Qty: 20 0RF Jardiance 25 mg tablet 25 mg PO DAILY Qty: 30 0RF insulin glargine [Basaglar KwikPen U-100 Insulin] 100 unit/mL (3 mL) insulin pen 1 unit subcut QHS PRN (Reason: IF NEEDED FOR BS) Trulicity 1.5 mg/0.5 mL pen injector 1.5 mg subcut QWEEK Patient Comments: TAKES ON SUNDAYS budesonide-formoterol 160-4.5 mcg/actuation HFA aerosol inhaler 2 puff INHALATION BID Qty: 10.2 11RF clopidogrel 75 mg tablet 75 mg PO QDAY Qty: 90 3RF metformin 1,000 mg tablet 1,000 mg PO BID furosemide [Lasix] 40 mg tablet 60 mg PO DAILY isosorbide mononitrate 60 mg tablet extended release 24 hr 30 mg PO BID Qty: 90 3RF Discontinued doxycycline monohydrate 100 mg capsule 100 mg PO BID Referrals / Follow Up: Sergio Edwards MD [Med Staff - Active Staff] - See Referral Note (Your appointment is at 1:00 on 04/18/2024 at the wound center) Viola Gunderson, CENTR[employer]UGAL MACHINE TENDER-[employer] [Primary Care Provider] - Disposition Disposition (needs filled in before D/C Order can be placed): Home, Self Care
[2024-04-15 21:10] LABS: Bedside Glucose 102 mg/dL (74-106)
== END 2024-04-15 15:18 | disposition home or self-care (01) | DRG 513 ==
LOC: SDC 20:44 → MS3 20:44
PROVIDERS: Family Medicine; Admitting Provider Surgery Plastic and Reconstructive Surgery; PCP Nurse Practitioner Family; Referring Provider Surgery Plastic and Reconstructive Surgery; Visit Provider Surgery Plastic and Reconstructive Surgery
PROC: 0JBJ0ZZ Excision of Right Hand Subcutaneous Tissue and Fascia, Open Approach (ICD-10-PCS; principal; 2024-04-13 15:45)
DX: M65.841 Other synovitis and tenosynovitis, right hand (principal); I96 Gangrene, not elsewhere classified; E11.65 Type 2 diabetes mellitus with hyperglycemia; E03.9 Hypothyroidism, unspecified; E66.9 Obesity, unspecified; B95.61 Methicillin susceptible Staphylococcus aureus infection as the cause of diseases classified elsewhere; J44.9 Chronic obstructive pulmonary disease, unspecified; I10 Essential (primary) hypertension; E78.1 Pure hyperglyceridemia; E78.5 Hyperlipidemia, unspecified; G47.33 Obstructive sleep apnea (adult) (pediatric); K21.9 Gastro-esophageal reflux disease without esophagitis; Z79.4 Long term (current) use of insulin; M54.9 Dorsalgia, unspecified; M25.561 Pain in right knee; M25.562 Pain in left knee; M17.11 Unilateral primary osteoarthritis, right knee; I25.10 Atherosclerotic heart disease of native coronary artery without angina pectoris; F17.210 Nicotine dependence, cigarettes, uncomplicated; R19.7 Diarrhea, unspecified; S61.401A Unspecified open wound of right hand, initial encounter; I45.10 Unspecified right bundle-branch block; I25.84 Coronary atherosclerosis due to calcified coronary lesion; N20.0 Calculus of kidney; Z86.73 Personal history of transient ischemic attack (TIA), and cerebral infarction without residual deficits; R05.3 Chronic cough; Z68.36 Body mass index [BMI] 36.0-36.9, adult; Z79.51 Long term (current) use of inhaled steroids; Z79.82 Long term (current) use of aspirin; Z79.890 Hormone replacement therapy; Z79.02 Long term (current) use of antithrombotics/antiplatelets; Z79.899 Other long term (current) drug therapy; Z79.84 Long term (current) use of oral hypoglycemic drugs; Z79.85 Long-term (current) use of injectable non-insulin antidiabetic drugs; Z95.5 Presence of coronary angioplasty implant and graft; Z90.49 Acquired absence of other specified parts of digestive tract; L08.9 Local infection of the skin and subcutaneous tissue, unspecified; X58.XXXA Exposure to other specified factors, initial encounter
CPT/HCPCS: 36415; 80048; 80202; 82962; 83036; 83735; 85025; 87015; 87070; 87075; 87102; 87116; 87205; 87206; 87493; 87506; 90656; 94002; 94640; 94668; 97802; A4216

== ENCOUNTER 2024-04-25 15:15 | Outpatient (RCR) | payer MEDICAID, SELFPAY ==
[2024-04-01 00:28] VITALS: BP 130/62; PULSE 71; RESP 18; TEMP 36.5; BMI 36.9
[2024-04-04 13:48] VITALS: BP 142/79; PULSE 82; RESP 18; TEMP 35.8; BMI 36.9
--- NOTE | 2024-04-04 17:22 | PCM.WC.PN ---
History of Present Illness Date of Service: 04/04/24 Chief Complaint: Right long finger flexor tenosynovitis History of Wound: Lisandro Garibay is a 58-year-old with past medical history of diabetes and recent hospital admission for the treatment of flexor tenosynovitis of the right long finger, as well as septic PIP joint, requiring multiple trips to the operating room and infectious disease consultation (continuing to follow and the patient has been on antibiotics). He presents today for 1 week follow-up after discharge from the hospital. He has been compliant with Dial soap soaks at home and packing with iodoform gauze. Progress of Wound: He is denying any fevers or chills. He states that he has been experiencing a lot of diarrhea and upset stomach and has stopped his antibiotics. He states he is doing well with the dressing changes. Objective Data Objective Data Vital Signs: Vital Signs Temp Pulse Resp BP O2 Del Method 96.5 F L 82 18 142/79 H Room Air 04/04/24 13:48 04/04/24 13:48 04/04/24 13:48 04/04/24 13:48 04/04/24 13:48 Oxygen Delivery Method Room Air Weight: 250 lb Body Mass Index (BMI) 36.9 Charges/Coding Procedures Integumentary [id number]: [id number] Global Visit Physical Exam Narrative Right hand wounds are healing well. No purulence from the incisions. Minimal tenderness to palpation. The incision at the base of the long finger with minimal exposed flexor tendon. Right lateral long finger wound is superficial and almost healed. Good granulation tissue present. The wound on his proximal hand is stable. He is able to bend and extend all MP, PIP, and DIP joints but there is stiffness and swelling in the right long finger and he is unable to to make a complete fist. Capillary refill < 2 seconds. Fingers are warm and pink. Debridement Note Debridement Note Wound debrided: #2 proximal right long finger Laterality: Right Type of Debridement: Excisional debridement Anesthesia Used: 5% Lidocaine Gel Depth: Down to and including healthy tissue and in the subcutaneous layer Percentage of wound debrided: 100 Instrument Used: 3mm curette Tissue Removed: Removed scabbing on surface. No deep debridement performed Severity: Fat Layer Exposed Amount of bleeding with debridement: None Bleeding Controlled with: Compression and gauze Patient tolerated procedure: Patient tolerated procedure well Post-Debridement Measurements and Additional Note: Post-Debridement Measurements/Treatment TRA - Nurse 1 - General Ulcer Assessment Start: 04/04/24 13:48 Freq: Status: Active Protocol: WAYLON Activity Type Activity Date Activity User E-sign Co-sign Detail Recorded Client Recorded Date Recorded By Document 04/04/24 13:48 DIALLO [id number] 04/04/24 13:59 04/04/24 13:48 - Today's Visit Information Type of service Follow-up Visit (Physician/RUBBER PROCESS HAND ) Arrival Mode Ambulatory Patient Identification Verified (Name & Yes ) Height and Weight Body Mass Index (BMI) 36.9 BMI Classification Obese Vital Signs Temperature (97.8 F-99.1 F) 96.5 F L Temperature Source Temporal Pulse Rate (60-100) 82 Pulse Location Monitor Respiratory Rate (12-18) 18 Respiratory rate source Observation Oxygen Delivery Method Room Air Blood Pressure (90/60-120/80) 142/79 H Blood Pressure Mean (mm Hg) 100 Source Monitor Position Sitting Blood Pressure Location Left Arm History Since Last Visit- (Skip if this is Patient's initial visit) Have you changed medications since your No last visit? Any new allergies or adverse reactions No Had a fall/change in ADL's that may No increase risk of falls Signs or symptoms of abuse and/or No neglect since last visit Have you been in the hospital since your No last visit? Has dressing in place as prescribed Yes Has compression in place as prescribed N/A Has offloadiing in place as prescribed N/A Experienced any changes in pain level or No management Left Footwear Regular Shoe Right Footwear Regular Shoe Pain Scale: 0-10 Numeric Is Patient Pain Free? Yes [facility] Nurse 1 - General Ulcer Measurement Start: 04/04/24 13:48 Freq: Status: Active Protocol: Activity Type Activity Date Activity User E-sign Co-sign Detail Recorded Client Recorded Date Recorded By Document 04/04/24 13:48 DIALLO [id number] 04/04/24 13:59 04/04/24 13:48 Wound Center Nurse 1 #3- R HAND 3RD DIGIT, LATERAL -Current Size (cm) - Length 1 -Current Size (cm) - Width 0.2 -Current Size (cm) - Depth 0.1 -Total Square Cm 0.2 -Date of Last Picture (Recall this 04/04/24 field) -Exudate Amt Small -Exudate Type Serosanguineous -Wound Margin Distinct, Outline Attached -Granulation Amt Large (67-100%) -Granulation Quality Red -Necrosis Amt Small (1-33%) -Necrotic Tissue Type Adherent Slough -Texture (Carolyn-wound Skin Appearance) Assessed -Moisture (Carolyn-wound Skin Appearance) Maceration -Color (Carolyn-wound Skin Appearance) Assessed -Temperature (Carolyn-wound Skin No Abnormality Appearance) (Pt Warm) -Tenderness on Palpation (Carolyn-wound No Skin Appearance) -Ulcer Cleansing Rinsed/ Irrigated with Saline -Anesthetic Used 5% Lidocaine Gel #2- R HAND BASE OF 3RD DIGIT -Current Size (cm) - Length 2.3 -Current Size (cm) - Width 0.5 -Current Size (cm) - Depth 0.4 -Total Square Cm 1.15 -Date of Last Picture (Recall this 04/04/24 field) -Exudate Amt Medium -Exudate Type Serosanguineous -Wound Margin Thickened -Texture (Carolyn-wound Skin Appearance) Assessed -Moisture (Carolyn-wound Skin Appearance) Maceration -Color (Carolyn-wound Skin Appearance) Assessed -Temperature (Carolyn-wound Skin No Abnormality Appearance) (Pt Warm) -Tenderness on Palpation (Carolyn-wound No Skin Appearance) -Ulcer Cleansing Rinsed/ Irrigated with Saline -Anesthetic Used 5% Lidocaine Gel #1- R HAND/PALM -Current Size (cm) - Length 3 -Current Size (cm) - Width 0.3 -Current Size (cm) - Depth 0.6 -Total Square Cm 0.9 -Date of Last Picture (Recall this 04/04/24 field) -Exudate Amt Small -Exudate Type Serosanguineous -Wound Margin Distinct, Outline Attached -Granulation Amt Medium (34-66%) -Granulation Quality [place] -Necrosis Amt Medium (34-66%) -Necrotic Tissue Type Adherent Slough -Texture (Carolyn-wound Skin Appearance) Assessed -Moisture (Carolyn-wound Skin Appearance) Assessed, Maceration -Color (Carolyn-wound Skin Appearance) Assessed -Temperature (Carolyn-wound Skin No Abnormality Appearance) (Pt Warm) -Tenderness on Palpation (Carolyn-wound No Skin Appearance) -Ulcer Cleansing Rinsed/ Irrigated with Saline -Foul Odor after Cleansing No -Anesthetic Used 5% Lidocaine Gel WC - Nurse 2 - General Ulcer CM Notes Start: 04/04/24 13:48 Freq: Status: Active Protocol: Activity Type Activity Date Activity User E-sign Co-sign Detail Recorded Client Recorded Date Recorded By Document 04/04/24 14:02 RANJITH [id number] 04/04/24 14:11 RANJITH 04/04/24 14:02 Wound Center Nurse 2 #3- R HAND 3RD DIGIT, LATERAL -Time 14:06 -Correct Patient Yes -Correct Side, Site, Position Yes -Correct Procedure Yes -Procedure Performed Yes -Type of Procedure Debridement -Clinical Debridement Subcutaneous -Tissue Removed Subcutaneous -Post Debridement (cm) - Length 1.0 -Post Debridement (cm) - Width 0.3 -Post Debridement (cm) - Depth 0.1 -Total Square (Post) (cm) 0.30 -Area of Debridement (cm) - Length 1.0 -Area of Debridement (cm) - Width 0.3 -Total Square (Area) (cm) 0.30 -Tunneling No -Undermining/Tunneling No -Circular Undermining No -Wound/Ulcer Outcome Not Healed -Ulcer Cleansing Rinsed/ Irrigated with Saline -Foul Odor after Cleansing No -Bioengineered Tissue No -Bleeding Controlled with Pressure -Treatment Response Procedure Tolerated Well -Offloading No -Debridement - Subq, 1st 20sq cm Yes #2- R HAND BASE OF 3RD DIGIT -Time 14:06 -Correct Patient Yes -Correct Side, Site, Position Yes -Correct Procedure Yes -Procedure Performed Yes -Type of Procedure Debridement -Post Debridement (cm) - Length 2.7 -Post Debridement (cm) - Width 1.2 -Post Debridement (cm) - Depth 0.3 -Total Square (Post) (cm) 3.24 -Area of Debridement (cm) - Length 2.7 -Area of Debridement (cm) - Width 1.2 -Total Square (Area) (cm) 3.24 -Tunneling No -Undermining/Tunneling No -Circular Undermining No -Wound/Ulcer Outcome Not Healed -Ulcer Cleansing Rinsed/ Irrigated with Saline -Foul Odor after Cleansing No -Bioengineered Tissue No -Bleeding Controlled with Pressure -Treatment Response Procedure Tolerated Well -Offloading No -Debridement - Muscle / Fascia, 1st No 20sq cm #1- R HAND/PALM -Time 14:09 -Correct Patient Yes -Correct Side, Site, Position Yes -Correct Procedure Yes -Procedure Performed Yes -Type of Procedure Debridement -Clinical Debridement Subcutaneous -Tissue Removed Subcutaneous -Post Debridement (cm) - Length 3.2 -Post Debridement (cm) - Width 0.5 -Post Debridement (cm) - Depth 0.4 -Total Square (Post) (cm) 1.60 -Area of Debridement (cm) - Length 3.2 -Area of Debridement (cm) - Width 0.5 -Total Square (Area) (cm) 1.60 -Tunneling No -Undermining/Tunneling No -Circular Undermining No -Wound/Ulcer Outcome Not Healed -Ulcer Cleansing Rinsed/ Irrigated with Saline -Foul Odor after Cleansing No -Bioengineered Tissue No -Bleeding Controlled with Pressure -Treatment Response Procedure Tolerated Well -Offloading No -Debridement - Subq, 1st 20sq cm Yes Pain Scale: 0-10 Numeric Is Patient Pain Free? Yes - Nurse 3 - General Ulcer D/C NN Start: 04/04/24 13:48 Freq: Status: Active Protocol: Activity Type Activity Date Activity User E-sign Co-sign Detail Recorded Client Recorded Date Recorded By Document 04/04/24 14:29 DL [id number] 04/04/24 14:31 DL 04/04/24 14:29 Wound Care Center Nurse 3 #3- R HAND 3RD DIGIT, LATERAL -Ulcer Cleansing Soap and Water -Foul Odor after Cleansing No -Primary Dressing Applied Silvercel -Primary Dressing Covered/Secured with Dry Gauze & Roll Gauze, Secured with Tape -[place] 1 #2- R HAND BASE OF 3RD DIGIT -Ulcer Cleansing Soap and Water -Foul Odor after Cleansing No -Primary Dressing Applied [place]cel -Primary Dressing Covered/Secured with Dry Gauze & Roll Gauze, Secured with Tape -[place] 1 #1- R HAND/PALM -Ulcer Cleansing Soap and Water -Foul Odor after Cleansing No -Other Dressing silvercel -Primary Dressing Covered/Secured with Dry Gauze & Roll Gauze, Secured with Tape R HAND -Compression Wrap Zachery Wrap Treatment Response Procedure Tolerated Well Pain Scale: 0-10 Numeric Is Patient Pain Free? Yes WC - Visit Discharge Discharge Condition Stable Ambulatory Status Ambulatory Transportation Private Auto Facility Type Home Health Orders Sent Yes Additional Wound Wound debrided: #1 proximal palm Laterality: Right Type of Debridement: Excisional debridement Anesthesia Used: 5% Lidocaine Gel Depth: Down to and including healthy tissue and in the subcutaneous layer Instrument Used: 3mm curette Tissue Removed: Scabbing and nonviable tissue on surface, no debridement in wound Severity: Fat Layer Exposed Bleeding Controlled with: Compression and gauze Patient tolerated procedure: Patient tolerated procedure well Assessment/Plan Assessment/Plan (1) Flexor tenosynovitis of finger: CODE(S): M65.949 - Unspecified synovitis and tenosynovitis, unspecified hand (2) Septic arthritis of interphalangeal joint of finger of right hand: CODE(S): M00.9 - Pyogenic arthritis, unspecified (3) Diarrhea: CODE(S): R19.7 - Diarrhea, unspecified (4) Type II diabetes mellitus: CODE(S): E11.9 - Type 2 diabetes mellitus without complications QUALIFIERS: Diabetes mellitus superintendent terminal insulin use: with chcf use Diabetes mellitus complication status: with neurologic complications Diabetes mellitus complication detail: with polyneuropathy Qualified Code(s): E11.42 - Type 2 diabetes mellitus with diabetic polyneuropathy; 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 Instructed him to continue his antibiotics. Gave him an order for stool sample due to his complaint of diarrhea, to rule out Cdiff. Stressed importance of ROM with his finger. Encouraged patient to stop smoking as it may have deleterious effects on wound healing. Discussed plan of care with Dr. Edwards. Follow up one week with Dr. Edwards. Call or come in sooner if develop any concerns.
--- NOTE | 2024-04-06 13:20 | WC ---
PHOTO 04/04/24 RIGHT HAND THIRD FINGER
--- NOTE | 2024-04-06 13:21 | WC ---
PHOTO 04/04/24 RIGHT HAND THIRD DIGIT BASE
--- NOTE | 2024-04-06 13:23 | WC ---
PHOTO 04/04/24 RIGHT HAND PALM
[2024-04-11 14:23] VITALS: BP 115/62; PULSE 76; RESP 18; TEMP 35.9; BMI 36.9
--- NOTE | 2024-04-11 17:19 | PN.PCM_ITS ---
History of Present Illness Date of Service: 04/11/24 Chief Complaint: Right long finger flexor tenosynovitis History of Wound: Lisandro Garibay is a 58-year-old with past medical history of diabetes and recent hospital admission for the treatment of flexor tenosynovitis of the right long finger, as well as septic PIP joint, requiring multiple trips to the operating room and infectious disease consultation (continuing to follow and the patient has been on antibiotics). He presents today for 1 week follow- up after discharge from the hospital. He reports that he is doing well today without any fevers or chills or any drainage. He has been compliant with Dial soap soaks at home and packing with iodoform gauze. 28 Mar 2024: Post op week one from delayed primary closure. Healing well. No fevers chills. Doing well with dressing changes. Progress of Wound: CURRENT ENCOUNTER, 11 Apr 2024 Patient reports compliance with soaks and iodoform. He's supposed to see his PCP on Thu this week to discuss sugar control. Sugar was 166 this afternoon in our clinic. Patient reports that he has had an upset GI tract recently with diarrhea, so he stopped taking his antibiotics (ID recommended the antibiotics continue) Objective Data Objective Data Inspection: no purulence from incisions, limited tenderness to palpation. The incision over the A1 bruce of the long finger has some persistent fibrinous exudate and now some more exposed flexor tendon at the base of the wound. Tendon is healthy appearing without any signs of desiccation at this point. CT incision healed well. Long finger PIP joint incision healed. Motor: Able to bend and extend all MP, PIP, and DIP joints, however stiffness in the right long finger and unable to make a complete fist secondary to wounds, stiffness, and swelling. Sensory: Intact to light touch on the radial and ulnar borders. Vascular: Finger tips are warm and well perfused with <2 second capillary refill. Vital Signs: Vital Signs Temp Pulse Resp BP O2 Del Method 96.7 F L 76 18 115/62 Room Air 04/11/24 14:23 04/11/24 14:23 04/11/24 14:23 04/11/24 14:23 04/11/24 14:23 Oxygen Delivery Method Room Air Weight: 250 lb Body Mass Index (BMI) 36.9 Charges/Coding Procedures Integumentary [id number]: [id number] Global Visit Debridement Note Debridement Note Post-Debridement Measurements and Additional Note: Post-Debridement Measurements/Treatment - Nurse 1 - General Ulcer Assessment Start: 04/04/24 13:48 Freq: Status: Active Protocol: WAYLON Activity Type Activity Date Activity User E-sign Co-sign Detail Recorded Client Recorded Date Recorded By Document 04/04/24 13:48 KW [id number] 04/04/24 13:59 KW Document 04/11/24 14:23 KW [id number] 04/11/24 14:31 KW 04/04/24 04/11/24 13:48 14:23 WC - Today's Visit Information Type of service Follow-up Visit Follow-up Visit (Physician/FARM MORTGAGE AGENT (Physician/FARM MORTGAGE AGENT ) ) Arrival Mode Ambulatory Ambulatory Patient Identification Verified (Name & Yes Yes ) Height and Weight Body Mass Index (BMI) 36.9 36.9 BMI Classification Obese Obese Vital Signs Temperature (97.8 F-99.1 F) 96.5 F L 96.7 F L Temperature Source Temporal Temporal Pulse Rate (60-100) 82 76 Pulse Location Monitor Monitor Respiratory Rate (12-18) 18 18 Respiratory rate source Observation Observation Oxygen Delivery Method Room Air Room Air Blood Pressure (90/60-120/80) 142/79 H 115/62 Blood Pressure Mean (mm Hg) 100 79 Source Monitor Monitor Position Sitting Semi-Fowlers Blood Pressure Location Left Arm Left Arm History Since Last Visit- (Skip if this is Patient's initial visit) Have you changed medications since your No No last visit? Any new allergies or adverse reactions No No Had a fall/change in ADL's that may No No increase risk of falls Signs or symptoms of abuse and/or No No neglect since last visit Have you been in the hospital since your No No last visit? Has dressing in place as prescribed Yes Yes Has compression in place as prescribed N/A Yes Has offloadiing in place as prescribed N/A N/A Experienced any changes in pain level or No No management Left Footwear Regular Shoe Regular Shoe Right Footwear Regular Shoe Regular Shoe Pain Scale: 0-10 Numeric Is Patient Pain Free? Yes Yes - Nurse 1 - General Ulcer Measurement Start: 04/04/24 13:48 Freq: Status: Active Protocol: Activity Type Activity Date Activity User E-sign Co-sign Detail Recorded Client Recorded Date Recorded By Document 04/04/24 13:48 KW [id number] 04/04/24 13:59 KW Document 04/11/24 14:23 KW [id number] 04/11/24 14:31 KW 04/04/24 04/11/24 13:48 14:23 Wound Center Nurse 1 #3- R HAND 3RD DIGIT, LATERAL -Current Size (cm) - Length 1 0 -Current Size (cm) - Width 0.2 0 -Current Size (cm) - Depth 0.1 0 -Total Square Cm 0.2 0 -Date of Last Picture (Recall this 04/04/24 field) -Exudate Amt Small -Exudate Type Serosanguineous -Wound Margin Distinct, Outline Attached -Granulation Amt Large (67-100%) -Granulation Quality Red -Necrosis Amt Small (1-33%) -Necrotic Tissue Type Adherent Slough -Texture (Carolyn-wound Skin Appearance) Assessed Assessed -Moisture (Carolyn-wound Skin Appearance) Maceration Assessed -Color (Carolyn-wound Skin Appearance) Assessed Assessed -Temperature (Carolyn-wound Skin No Abnormality Appearance) (Pt Warm) -Tenderness on Palpation (Carolyn-wound No Skin Appearance) -Ulcer Cleansing Rinsed/ Irrigated with Saline -Anesthetic Used 5% Lidocaine Gel #2- R HAND BASE OF 3RD DIGIT -Current Size (cm) - Length 2.3 2 -Current Size (cm) - Width 0.5 0.3 -Current Size (cm) - Depth 0.4 0.3 -Total Square Cm 1.15 0.6 -Date of Last Picture (Recall this 04/04/24 field) -Exudate Amt Medium Small -Exudate Type Serosanguineous Serosanguineous -Wound Margin Thickened Distinct, Outline Attached -Granulation Amt Large (67-100%) -Granulation Quality [place] -Texture (Carolyn-wound Skin Appearance) Assessed Assessed -Moisture (Carolyn-wound Skin Appearance) Maceration Assessed, Maceration -Color (Carolyn-wound Skin Appearance) Assessed Assessed -Temperature (Carolyn-wound Skin No Abnormality No Abnormality Appearance) (Pt Warm) (Pt Warm) -Tenderness on Palpation (Carolyn-wound No No Skin Appearance) -Ulcer Cleansing Rinsed/ Rinsed/ Irrigated with Irrigated with Saline Saline -Foul Odor after Cleansing No -Anesthetic Used 5% Lidocaine 4% Lidocaine Gel Solution #1- R HAND/PALM -Current Size (cm) - Length 3 1.5 -Current Size (cm) - Width 0.3 0.1 -Current Size (cm) - Depth 0.6 0.3 -Total Square Cm 0.9 0.15 -Date of Last Picture (Recall this 04/04/24 field) -Exudate Amt Small Small -Exudate Type Serosanguineous Serosanguineous -Wound Margin Distinct, Distinct, Outline Outline Attached Attached -Granulation Amt Medium (34-66%) Large (67-100%) -Granulation Quality [place] -Necrosis Amt Medium (34-66%) -Necrotic Tissue Type Adherent Slough -Texture (Carolyn-wound Skin Appearance) Assessed Assessed -Moisture (Carolyn-wound Skin Appearance) Assessed, Maceration Maceration -Color (Carolyn-wound Skin Appearance) Assessed Assessed -Temperature (Carolyn-wound Skin No Abnormality No Abnormality Appearance) (Pt Warm) (Pt Warm) -Tenderness on Palpation (Carolyn-wound No No Skin Appearance) -Ulcer Cleansing Rinsed/ Rinsed/ Irrigated with Irrigated with Saline Saline -Foul Odor after Cleansing No No -Anesthetic Used 5% Lidocaine 4% Lidocaine Gel Solution WC - Nurse 2 - General Ulcer CM Notes Start: 04/04/24 13:48 Freq: Status: Active Protocol: Activity Type Activity Date Activity User E-sign Co-sign Detail Recorded Client Recorded Date Recorded By Document 04/04/24 14:02 [id number] 04/04/24 14:11 Edit Result 04/04/24 14:02 JF (1) 000 04/05/24 14:52 Document 04/11/24 14:40 [id number] 04/11/24 14:53 (1) #2- R HAND BASE OF 3RD DIGIT - Clinical Debridement => Muscle / Fascia - Tissue Removed => Muscle,Fascia #1- R HAND/PALM - Clinical Debridement Subcutaneous => Muscle / Fascia - Tissue Removed Subcutaneous => Muscle,Fascia - Debridement - Subq, 1st 20sq cm Yes => No - Debridement - Muscle / Fascia, 1st => Yes 20sq cm 04/04/24 04/11/24 14:02 14:40 Wound Center Nurse 2 #3- R HAND 3RD DIGIT, LATERAL -Time 14:06 -Correct Patient Yes No -Correct Side, Site, Position Yes No -Correct Procedure Yes No -Procedure Performed Yes No -Type of Procedure Debridement -Clinical Debridement Subcutaneous -Tissue Removed Subcutaneous -Post Debridement (cm) - Length 1.0 0 -Post Debridement (cm) - Width 0.3 0 -Post Debridement (cm) - Depth 0.1 0 -Total Square (Post) (cm) 0.30 0 -Area of Debridement (cm) - Length 1.0 0 -Area of Debridement (cm) - Width 0.3 0 -Total Square (Area) (cm) 0.30 0 -Tunneling No -Undermining/Tunneling No -Circular Undermining No -Wound/Ulcer Outcome Not Healed Healed- Epithelialized -Ulcer Cleansing Rinsed/ Irrigated with Saline -Foul Odor after Cleansing No -Bioengineered Tissue No -Bleeding Controlled with Pressure -Treatment Response Procedure Tolerated Well -Offloading No -Debridement - Subq, 1st 20sq cm Yes #2- R HAND BASE OF 3RD DIGIT -Time 14:06 -Correct Patient Yes No -Correct Side, Site, Position Yes No -Correct Procedure Yes No -Procedure Performed Yes No -Type of Procedure Debridement -Clinical Debridement Muscle / Fascia -Tissue Removed Muscle,Fascia -Post Debridement (cm) - Length 2.7 -Post Debridement (cm) - Width 1.2 -Post Debridement (cm) - Depth 0.3 -Total Square (Post) (cm) 3.24 -Area of Debridement (cm) - Length 2.7 -Area of Debridement (cm) - Width 1.2 -Total Square (Area) (cm) 3.24 -Tunneling No -Undermining/Tunneling No -Circular Undermining No -Wound/Ulcer Outcome Not Healed Not Healed -Ulcer Cleansing Rinsed/ Irrigated with Saline -Foul Odor after Cleansing No -Bioengineered Tissue No -Bleeding Controlled with Pressure -Treatment Response Procedure Tolerated Well -Offloading No -Debridement - Muscle / Fascia, 1st No 20sq cm #1- R HAND/PALM -Time 14:09 -Correct Patient Yes No -Correct Side, Site, Position Yes No -Correct Procedure Yes No -Procedure Performed Yes No -Type of Procedure Debridement -Clinical Debridement Muscle / Fascia -Tissue Removed Muscle,Fascia -Post Debridement (cm) - Length 3.2 -Post Debridement (cm) - Width 0.5 -Post Debridement (cm) - Depth 0.4 -Total Square (Post) (cm) 1.60 -Area of Debridement (cm) - Length 3.2 -Area of Debridement (cm) - Width 0.5 -Total Square (Area) (cm) 1.60 -Tunneling No -Undermining/Tunneling No -Circular Undermining No -Wound/Ulcer Outcome Not Healed Not Healed -Ulcer Cleansing Rinsed/ Irrigated with Saline -Foul Odor after Cleansing No -Bioengineered Tissue No -Bleeding Controlled with Pressure -Treatment Response Procedure Tolerated Well -Offloading No -Debridement - Subq, 1st 20sq cm No No -Debridement - Muscle / Fascia, 1st Yes 20sq cm Pain Scale: 0-10 Numeric Is Patient Pain Free? Yes Yes WC - Nurse 3 - General Ulcer D/C NN Start: 04/04/24 13:48 Freq: Status: Active Protocol: Activity Type Activity Date Activity User E-sign Co-sign Detail Recorded Client Recorded Date Recorded By Document 04/04/24 14:29 DL [id number] 04/04/24 14:31 DL Document 04/11/24 14:56 [facility] [id number] 04/11/24 14:57 [facility] 04/04/24 04/11/24 14:29 14:56 Wound Care Center Nurse 3 #3- R HAND 3RD DIGIT, LATERAL -Ulcer Cleansing Soap and Water -Foul Odor after Cleansing No -Primary Dressing Applied Silvercel -Primary Dressing Covered/Secured with Dry Gauze & Roll Gauze, Secured with Tape -Silvercel 1 #2- R HAND BASE OF 3RD DIGIT -Ulcer Cleansing Soap and Water Rinsed/ Irrigated with Saline -Foul Odor after Cleansing No No -Primary Dressing Applied Silvercel NonAdherent Contact Layer -Other Dressing XEROFORM; DRSG PER DL DRAMATIC TEACHER -Primary Dressing Covered/Secured with Dry Gauze & Dry Gauze & Roll Gauze, Roll Gauze, Secured with Secured with Tape Tape -Silvercel 1 #1- R HAND/PALM -Ulcer Cleansing Soap and Water Rinsed/ Irrigated with Saline -Foul Odor after Cleansing No No -Primary Dressing Applied NonAdherent Contact Layer -Other Dressing silvercel XEROFORM; DRSG PER DL DRAMATIC TEACHER -Primary Dressing Covered/Secured with Dry Gauze & Dry Gauze & Roll Gauze, Roll Gauze, Secured with Secured with Tape Tape R HAND -Compression Wrap Zachery Wrap Treatment Response Procedure Procedure Tolerated Well Tolerated Well Pain Scale: 0-10 Numeric Is Patient Pain Free? Yes Yes WC - Visit Discharge Discharge Condition Stable Stable Ambulatory Status Ambulatory Ambulatory Transportation Private Auto Private Auto Facility Type Home Health Orders Sent Yes Assessment/Plan Assessment/Plan (1) Open wound, hand: CODE(S): S61.409A - Unspecified open wound of unspecified hand, initial encounter QUALIFIERS: Encounter type: subsequent encounter Laterality: r ight PLAN: I am concerned about the amount of tendon exposure/nonhealing wound on his right hand. I do not think this can heal on its own. I talked to him about the risks, benefits, and alternatives of delayed surgical closure. NPO at midnight, OR tomorrow for debridement and closure (local and sedation). Admit post-operatively to follow up wound cultures and for tight blood glucose control. Moist wound care to the tendon for now to prevent desiccation.
[2024-04-12 12:42] LABS: Bedside Glucose 166 mg/dL (74-106)
[2024-04-18 14:39] VITALS: BP 114/60; PULSE 60; RESP 16; TEMP 36.1; BMI 36.9
--- NOTE | 2024-04-18 18:14 | PCM.WC.PN ---
History of Present Illness Date of Service: 04/18/24 Chief Complaint: Right long finger flexor tenosynovitis History of Wound: Lisandro Garibay is a 58-year-old with past medical history of diabetes and recent hospital admission for the treatment of flexor tenosynovitis of the right long finger, as well as septic PIP joint, requiring multiple trips to the operating room and infectious disease consultation (continuing to follow and the patient has been on antibiotics). He presents today for 1 week follow-up after discharge from the hospital. He reports that he is doing well today without any fevers or chills or any drainage. He has been compliant with Dial soap soaks at home and packing with iodoform gauze. 28 Mar 2024: Post op week one from delayed primary closure. Healing well. No fevers chills. Doing well with dressing changes. Progress of Wound: 11 Apr 2024: Patient reports compliance with soaks and iodoform. He's supposed to see his PCP on Thu this week to discuss sugar control. Sugar was 166 this afternoon in our clinic. Patient reports that he has had an upset GI tract recently with diarrhea, so he stopped taking his antibiotics (ID recommended the antibiotics continue) Current encounter, 18 Apr 2024: Doing well postop day 5 from delayed primary closure. No fevers chills. Pain improving overall. He has been compliant on his Keflex per infectious disease recommendations. Reports well controlled blood sugars at home (120-180). Objective Data Objective Data Vital Signs: Vital Signs Temp Pulse Resp BP O2 Del Method 96.9 F L 60 16 114/60 Room Air 04/18/24 14:39 04/18/24 14:39 04/18/24 14:39 04/18/24 14:39 04/11/24 14:23 Oxygen Delivery Method Room Air Weight: 250 lb Body Mass Index (BMI) 36.9 Charges/Coding Procedures Integumentary 111xxx-113xx: [id number] Global Visit Physical Exam Narrative Right upper extremity INSPECTION: Dressing removed. No purulence. Incisions clean/dry/intact. No exposed tendon Motor: Able to bend and extend all MP, PIP, and DIP joints. Able to fire thenar eminence Sensory: Intact to light touch on the radial and ulnar borders. Vascular: Finger tips are warm and well perfused with <2 second capillary refill. Const alert and oriented x3 Eyes EOMs intact bilaterally Neck full ROM Chest inspection of chest normal Resp normal respiratory effort Cardio regular rate Extremity full ROM Extremity Narrative: SCDs on and activated Debridement Note Debridement Note Post-Debridement Measurements and Additional Note: Post-Debridement Measurements/Treatment - Nurse 1 - General Ulcer Assessment Start: 04/04/24 13:48 Freq: Status: Active Protocol: TRA.LOWEXAtif Activity Type Activity Date Activity User E-sign Co-sign Detail Recorded Client Recorded Date Recorded By Document 04/04/24 13:48 KW [id number] 04/04/24 13:59 KW Document 04/11/24 14:23 KW [id number] 04/11/24 14:31 KW Document 04/18/24 14:39 ML [id number] 04/18/24 14:43 ML Edit Result 04/18/24 14:39 ML (1) [id number] 04/18/24 14:44 ML (1) Pulse Rate (60-100) => 60 Pulse Location => Monitor Respiratory Rate (12-18) => 16 Respiratory rate source => Observation Blood Pressure (90/60-120/80) => 114/60 Blood Pressure Mean (mm Hg) => 78 Source => Monitor Position => Sitting Blood Pressure Location => Left Arm 04/04/24 04/11/24 04/18/24 13:48 14:23 14:39 - Today's Visit Information Type of service Follow-up Visit Follow-up Visit Follow-up Visit (Physician/[employer] (Physician/[employer] (Physician/[employer] ) ) ) Arrival Mode Ambulatory Ambulatory Ambulatory Transfer Assistance None Patient Identification Verified (Name & Yes Yes Yes ) Patient Requires Transmission-Based No Precautions Finger Stick Blood Sugar(mg/dl) (if 127 indicated): Blood Sugar Stated by Patient Height and Weight Body Mass Index (BMI) 36.9 36.9 36.9 BMI Classification Obese Obese Obese Vital Signs Temperature (97.8 F-99.1 F) 96.5 F L 96.7 F L 96.9 F L Temperature Source Temporal Temporal Temporal Pulse Rate (60-100) 82 76 60 Pulse Location Monitor Monitor Monitor Respiratory Rate (12-18) 18 18 16 Respiratory rate source Observation Observation Observation Oxygen Delivery Method Room Air Room Air Blood Pressure (90/60-120/80) 142/79 H 115/62 114/60 Blood Pressure Mean (mm Hg) 100 79 78 Source Monitor Monitor Monitor Position Sitting Semi-Fowlers Sitting Blood Pressure Location Left Arm Left Arm Left Arm History Since Last Visit- (Skip if this is Patient's initial visit) Have you changed medications since your No No No last visit? Any new allergies or adverse reactions No No No Had a fall/change in ADL's that may No No No increase risk of falls Signs or symptoms of abuse and/or No No No neglect since last visit Have you been in the hospital since your No No No last visit? Has dressing in place as prescribed Yes Yes Yes Has compression in place as prescribed N/A Yes N/A Has offloadiing in place as prescribed N/A N/A N/A Experienced any changes in pain level or No No Yes management Left Footwear Regular Shoe Regular Shoe Right Footwear Regular Shoe Regular Shoe Pain Scale: 0-10 Numeric Is Patient Pain Free? Yes Yes Yes WC - Nurse 1 - General Ulcer Measurement Start: 04/04/24 13:48 Freq: Status: Active Protocol: Activity Type Activity Date Activity User E-sign Co-sign Detail Recorded Client Recorded Date Recorded By Document 04/04/24 13:48 KW [id number] 04/04/24 13:59 KW Document 04/11/24 14:23 KW [id number] 04/11/24 14:31 KW Document 04/18/24 14:39 ML [id number] 04/18/24 14:43 ML 04/04/24 04/11/24 04/18/24 13:48 14:23 14:39 Wound Center Nurse 1 #3- R HAND 3RD DIGIT, LATERAL -Current Size (cm) - Length 1 0 -Current Size (cm) - Width 0.2 0 -Current Size (cm) - Depth 0.1 0 -Total Square Cm 0.2 0 -Date of Last Picture (Recall this 04/04/24 field) -Exudate Amt Small -Exudate Type Serosanguineous -Wound Margin Distinct, Outline Attached -Granulation Amt Large (67-100%) -Granulation Quality Red -Necrosis Amt Small (1-33%) -Necrotic Tissue Type Adherent Slough -Texture (Carolyn-wound Skin Appearance) Assessed Assessed -Moisture (Carolyn-wound Skin Appearance) Maceration Assessed -Color (Carolyn-wound Skin Appearance) Assessed Assessed -Temperature (Carolyn-wound Skin No Abnormality Appearance) (Pt Warm) -Tenderness on Palpation (Carolyn-wound No Skin Appearance) -Ulcer Cleansing Rinsed/ Irrigated with Saline -Anesthetic Used 5% Lidocaine Gel #2- R HAND BASE OF 3RD DIGIT -Current Size (cm) - Length 2.3 2 1 -Current Size (cm) - Width 0.5 0.3 0.1 -Current Size (cm) - Depth 0.4 0.3 0.1 -Total Square Cm 1.15 0.6 0.1 -Date of Last Picture (Recall this 04/04/24 field) -Exudate Amt Medium Small Medium -Exudate Type Serosanguineous Serosanguineous Serosanguineous -Wound Margin Thickened Distinct, Distinct, Outline Outline Attached Attached -Granulation Amt Large (67-100%) Medium (34-66%) -Granulation Quality Langdon -Slough/Fibrin Yes -Necrosis Amt Medium (34-66%) -Necrotic Tissue Type Adherent Slough -Texture (Carolyn-wound Skin Appearance) Assessed Assessed Assessed -Moisture (Carolyn-wound Skin Appearance) Maceration Assessed, Assessed Maceration -Color (Carolyn-wound Skin Appearance) Assessed Assessed Assessed -Temperature (Carolyn-wound Skin No Abnormality No Abnormality Appearance) (Pt Warm) (Pt Warm) -Tenderness on Palpation (Carolyn-wound No No Skin Appearance) -Ulcer Cleansing Rinsed/ Rinsed/ Rinsed/ Irrigated with Irrigated with Irrigated with Saline Saline Saline -Foul Odor after Cleansing No No -Anesthetic Used 5% Lidocaine 4% Lidocaine 5% Lidocaine Gel Solution Gel #1- R HAND/PALM -Current Size (cm) - Length 3 1.5 2 -Current Size (cm) - Width 0.3 0.1 0.1 -Current Size (cm) - Depth 0.6 0.3 0.1 -Total Square Cm 0.9 0.15 0.2 -Date of Last Picture (Recall this 04/04/24 field) -Exudate Amt Small Small Small -Exudate Type Serosanguineous Serosanguineous Serosanguineous -Wound Margin Distinct, Distinct, Distinct, Outline Outline Outline Attached Attached Attached -Granulation Amt Medium (34-66%) Large (67-100%) Medium (34-66%) -Granulation Quality Langdon Langdon -Necrosis Amt Medium (34-66%) Medium (34-66%) -Necrotic Tissue Type Adherent Slough Adherent Slough -Texture (Carolyn-wound Skin Appearance) Assessed Assessed Assessed -Moisture (Carolyn-wound Skin Appearance) Assessed, Maceration Assessed Maceration -Color (Carolyn-wound Skin Appearance) Assessed Assessed Assessed -Temperature (Carolyn-wound Skin No Abnormality No Abnormality No Abnormality Appearance) (Pt Warm) (Pt Warm) (Pt Warm) -Tenderness on Palpation (Carolyn-wound No No Skin Appearance) -Ulcer Cleansing Rinsed/ Rinsed/ Rinsed/ Irrigated with Irrigated with Irrigated with Saline Saline Saline -Foul Odor after Cleansing No No No -Anesthetic Used 5% Lidocaine 4% Lidocaine 5% Lidocaine Gel Solution Gel WC - Nurse 2 - General Ulcer CM Notes Start: 04/04/24 13:48 Freq: Status: Active Protocol: Activity Type Activity Date Activity User E-sign Co-sign Detail Recorded Client Recorded Date Recorded By Document 04/04/24 14:02 [id number] 04/04/24 14:11 Edit Result 04/04/24 14:02 JF (1) 000 04/05/24 14:52 Document 04/11/24 14:40 [id number] 04/11/24 14:53 Document 04/18/24 15:54 [id number] 04/18/24 15:59 (1) #2- R HAND BASE OF 3RD DIGIT - Clinical Debridement => Muscle / Fascia - Tissue Removed => Muscle,Fascia #1- R HAND/PALM - Clinical Debridement Subcutaneous => Muscle / Fascia - Tissue Removed Subcutaneous => Muscle,Fascia - Debridement - Subq, 1st 20sq cm Yes => No - Debridement - Muscle / Fascia, 1st => Yes 20sq cm 04/04/24 04/11/24 04/18/24 14:02 14:40 15:54 Wound Center Nurse 2 #3- R HAND 3RD DIGIT, LATERAL -Time 14:06 -Correct Patient Yes No -Correct Side, Site, Position Yes No -Correct Procedure Yes No -Procedure Performed Yes No -Type of Procedure Debridement -Clinical Debridement Subcutaneous -Tissue Removed Subcutaneous -Post Debridement (cm) - Length 1.0 0 -Post Debridement (cm) - Width 0.3 0 -Post Debridement (cm) - Depth 0.1 0 -Total Square (Post) (cm) 0.30 0 -Area of Debridement (cm) - Length 1.0 0 -Area of Debridement (cm) - Width 0.3 0 -Total Square (Area) (cm) 0.30 0 -Tunneling No -Undermining/Tunneling No -Circular Undermining No -Wound/Ulcer Outcome Not Healed Healed- Epithelialized -Ulcer Cleansing Rinsed/ Irrigated with Saline -Foul Odor after Cleansing No -Bioengineered Tissue No -Bleeding Controlled with Pressure -Treatment Response Procedure Tolerated Well -Offloading No -Debridement - Subq, 1st 20sq cm Yes #2- R HAND BASE OF 3RD DIGIT -Time 14:06 -Correct Patient Yes No No -Correct Side, Site, Position Yes No No -Correct Procedure Yes No No -Procedure Performed Yes No No -Type of Procedure Debridement -Clinical Debridement Muscle / Fascia -Tissue Removed Muscle,Fascia -Post Debridement (cm) - Length 2.7 -Post Debridement (cm) - Width 1.2 -Post Debridement (cm) - Depth 0.3 -Total Square (Post) (cm) 3.24 -Area of Debridement (cm) - Length 2.7 -Area of Debridement (cm) - Width 1.2 -Total Square (Area) (cm) 3.24 -Tunneling No -Undermining/Tunneling No -Circular Undermining No -Wound/Ulcer Outcome Not Healed Not Healed Not Healed -Ulcer Cleansing Rinsed/ Irrigated with Saline -Foul Odor after Cleansing No -Bioengineered Tissue No -Bleeding Controlled with Pressure -Treatment Response Procedure Tolerated Well -Offloading No -Debridement - Muscle / Fascia, 1st No 20sq cm #1- R HAND/PALM -Time 14:09 15:55 -Correct Patient Yes No Yes -Correct Side, Site, Position Yes No Yes -Correct Procedure Yes No Yes -Procedure Performed Yes No Yes -Type of Procedure Debridement Debridement -Clinical Debridement Muscle / Fascia Subcutaneous -Tissue Removed Muscle,Fascia Subcutaneous -Post Debridement (cm) - Length 3.2 1.0 -Post Debridement (cm) - Width 0.5 0.2 -Post Debridement (cm) - Depth 0.4 0.3 -Total Square (Post) (cm) 1.60 0.20 -Area of Debridement (cm) - Length 3.2 1.0 -Area of Debridement (cm) - Width 0.5 0.2 -Total Square (Area) (cm) 1.60 0.20 -Tunneling No No -Undermining/Tunneling No No -Circular Undermining No No -Wound/Ulcer Outcome Not Healed Not Healed Not Healed -Ulcer Cleansing Rinsed/ Rinsed/ Irrigated with Irrigated with Saline Saline -Foul Odor after Cleansing No No -Bioengineered Tissue No No -Bleeding Controlled with Pressure Pressure -Treatment Response Procedure Procedure Tolerated Well Tolerated Well -Offloading No No -Debridement - Subq, 1st 20sq cm No No Yes -Debridement - Muscle / Fascia, 1st Yes 20sq cm Pain Scale: 0-10 Numeric Is Patient Pain Free? Yes Yes Yes WC - Nurse 3 - General Ulcer D/C NN Start: 04/04/24 13:48 Freq: Status: Active Protocol: Activity Type Activity Date Activity User E-sign Co-sign Detail Recorded Client Recorded Date Recorded By Document 04/04/24 14:29 DL [id number] 04/04/24 14:31 DL Document 04/11/24 14:56 [facility] [id number] 04/11/24 14:57 [facility] Document 04/18/24 16:03 KW [id number] 04/18/24 16:04 04/04/24 04/11/24 04/18/24 14:29 14:56 16:03 Wound Care Center Nurse 3 #3- R HAND 3RD DIGIT, LATERAL -Ulcer Cleansing Soap and Water -Foul Odor after Cleansing No -Primary Dressing Applied Silvercel -Primary Dressing Covered/Secured with Dry Gauze & Roll Gauze, Secured with Tape -Silvercel 1 #2- R HAND BASE OF 3RD DIGIT -Ulcer Cleansing Soap and Water Rinsed/ Irrigated with Saline -Foul Odor after Cleansing No No -Primary Dressing Applied Silvercel NonAdherent Silvercel Contact Layer -Other Dressing XEROFORM; DRSG PER DL [employer] -Primary Dressing Covered/Secured with Dry Gauze & Dry Gauze & Dry Gauze & Roll Gauze, Roll Gauze, Roll Gauze, Secured with Secured with Secured with Tape Tape Tape -Silvercel 1 1 #1- R HAND/PALM -Ulcer Cleansing Soap and Water Rinsed/ Irrigated with Saline -Foul Odor after Cleansing No No -Primary Dressing Applied NonAdherent Contact Layer -Other Dressing silvercel XEROFORM; DRSG silver alginate PER DL [employer] IN[employer] -Primary Dressing Covered/Secured with Dry Gauze & Dry Gauze & Dry Gauze Roll Gauze, Roll Gauze, Secured with Secured with Tape Tape R HAND -Compression Wrap Zachery Wrap Treatment Response Procedure Procedure Tolerated Well Tolerated Well Pain Scale: 0-10 Numeric Is Patient Pain Free? Yes Yes Yes WC - Visit Discharge Discharge Condition Stable Stable Ambulatory Status Ambulatory Ambulatory Transportation Private Auto Private Auto Facility Type Home Health Orders Sent Yes Assessment/Plan Assessment/Plan (1) Infected hand: CODE(S): L08.9 - Local infection of the skin and subcutaneous tissue, unspecified PLAN: Status post delayed primary closure Continue on Keflex No growth to date on cultures from the OR Follow-up in 1 week at the wound care center Continue soaks with dry dressing. Patient instructed no lifting/using right upper extremity for work around the house. Needs to heal the incisions over the tendon.
--- NOTE | 2024-04-19 13:51 | WC ---
PHOTO 04/18/24 RIGHT HAND POST OP
[2024-04-25 15:11] VITALS: BP 122/64; PULSE 69; RESP 18; TEMP 36; BMI 36.9
--- NOTE | 2024-04-25 17:26 | PN.PCM_ITS ---
History of Present Illness Date of Service: 04/25/24 Chief Complaint: Right long finger flexor tenosynovitis History of Wound: History of Wound: Lisandro Garibay is a 58-year-old with past medical history of diabetes and recent hospital admission for the treatment of flexor tenosynovitis of the right long finger, as well as septic PIP joint, requiring multiple trips to the operating room and infectious disease consultation (continuing to follow and the patient has been on antibiotics). He presents today for 1 week follow-up after discharge from the hospital. He reports that he is doing well today without any fevers or chills or any drainage. He has been compliant with Dial soap soaks at home and packing with iodoform gauze. 28 Mar 2024: Post op week one from delayed primary closure. Healing well. No fevers chills. Doing well with dressing changes. Progress of Wound: 11 Apr 2024: Patient reports compliance with soaks and iodoform. He's supposed to see his PCP on Thu this week to discuss sugar control. Sugar was 166 this afternoon in our clinic. Patient reports that he has had an upset GI tract recently with diarrhea, so he stopped taking his antibiotics (ID recommended the antibiotics continue) 18 Apr 2024: Doing well postop day 5 from delayed primary closure. No fevers chills. Pain improving overall. He has been compliant on his Keflex per infectious disease recommendations. Reports well controlled blood sugars at home (120-180). Progress of Wound: Current encounter, 25 Apr 2024: Reports his finger feels stiff. Some persistent pain along the incisions. Reports well controlled sugars (100s to 160s) at home, but reports persistent smoking of least a pack per day of cigarettes. Objective Data Objective Data Vital Signs: Vital Signs Temp Pulse Resp BP O2 Del Method 96.8 F L 69 18 122/64 H Room Air 04/25/24 15:11 04/25/24 15:11 04/25/24 15:11 04/25/24 15:11 04/25/24 15:11 Oxygen Delivery Method Room Air Weight: 250 lb Body Mass Index (BMI) 36.9 Charges/Coding Procedures Integumentary [id number]: [id number] Global Visit Physical Exam Narrative Right upper extremity INSPECTION: Dressing removed. No purulence. Incisions clean/dry/intact. Small area of dehiscence in the distal palm with glistening tendon at the base of the wound. Most of the incision seems to be re-epithelializing, however. CT incision healing well. Motor: Able to bend and extend all MP, PIP, and DIP joints. Able to fire thenar eminence Sensory: Intact to light touch on the radial and ulnar borders. Vascular: Finger tips are warm and well perfused with <2 second capillary refill. Const alert and oriented x3 Eyes EOMs intact bilaterally Neck full ROM Chest inspection of chest normal Resp normal respiratory effort Cardio regular rate Extremity full ROM Extremity Narrative: SCDs on and activated Debridement Note Debridement Note Post-Debridement Measurements and Additional Note: Post-Debridement Measurements/Treatment - Nurse 1 - General Ulcer Assessment Start: 04/04/24 13:48 Freq: Status: Active Protocol: TRA.[email or web address] Activity Type Activity Date Activity User E-sign Co-sign Detail Recorded Client Recorded Date Recorded By Document 04/04/24 13:48 KW [id number] 04/04/24 13:59 KW Document 04/11/24 14:23 KW [id number] 04/11/24 14:31 KW Document 04/18/24 14:39 ML [id number] 04/18/24 14:43 ML Edit Result 04/18/24 14:39 ML (1) [id number] 04/18/24 14:44 ML Document 04/25/24 15:11 KW [id number] 04/25/24 15:19 KW Edit Result 04/25/24 15:11 KW (2) [id number] 04/25/24 15:20 KW (1) Pulse Rate (60-100) => 60 Pulse Location => Monitor Respiratory Rate (12-18) => 16 Respiratory rate source => Observation Blood Pressure (90/60-120/80) => 114/60 Blood Pressure Mean (mm Hg) => 78 Source => Monitor Position => Sitting Blood Pressure Location => Left Arm (2) rt hand - Radiation Location => 3rd and 4th digit => to palm up med => forearm 04/04/24 04/11/24 04/18/24 13:48 14:23 14:39 - Today's Visit Information Type of service Follow-up Visit Follow-up Visit Follow-up Visit (Physician/DISASTER RESPONSE DIRECTOR (Physician/DISASTER RESPONSE DIRECTOR (Physician/DISASTER RESPONSE DIRECTOR ) ) ) Arrival Mode Ambulatory Ambulatory Ambulatory Transfer Assistance None Patient Identification Verified (Name & Yes Yes Yes ) Patient Requires Transmission-Based No Precautions Finger Stick Blood Sugar(mg/dl) (if 127 indicated): Blood Sugar Stated by Patient Height and Weight Body Mass Index (BMI) 36.9 36.9 36.9 BMI Classification Obese Obese Obese Vital Signs Temperature (97.8 F-99.1 F) 96.5 F L 96.7 F L 96.9 F L Temperature Source Temporal Temporal Temporal Pulse Rate (60-100) 82 76 60 Pulse Location Monitor Monitor Monitor Respiratory Rate (12-18) 18 18 16 Respiratory rate source Observation Observation Observation Oxygen Delivery Method Room Air Room Air Blood Pressure (90/60-120/80) 142/79 H 115/62 114/60 Blood Pressure Mean (mm Hg) 100 79 78 Source Monitor Monitor Monitor Position Sitting Semi-Fowlers Sitting Blood Pressure Location Left Arm Left Arm Left Arm History Since Last Visit- (Skip if this is Patient's initial visit) Have you changed medications since your No No No last visit? Any new allergies or adverse reactions No No No Had a fall/change in ADL's that may No No No increase risk of falls Signs or symptoms of abuse and/or No No No neglect since last visit Have you been in the hospital since your No No No last visit? Has dressing in place as prescribed Yes Yes Yes Has compression in place as prescribed N/A Yes N/A Has offloadiing in place as prescribed N/A N/A N/A Experienced any changes in pain level or No No Yes management Left Footwear Regular Shoe Regular Shoe Right Footwear Regular Shoe Regular Shoe Pain Scale: 0-10 Numeric Is Patient Pain Free? Yes Yes Yes rt hand -Description -Intensity -Radiation Location -Alleviating Factors/Interventions 04/25/24 15:11 WC - Today's Visit Information Type of service Follow-up Visit (Physician/DISASTER RESPONSE DIRECTOR ) Arrival Mode Ambulatory Transfer Assistance Patient Identification Verified (Name & Yes ) Patient Requires Transmission-Based Precautions Finger Stick Blood Sugar(mg/dl) (if indicated): Blood Sugar Height and Weight Body Mass Index (BMI) 36.9 BMI Classification Obese Vital Signs Temperature (97.8 F-99.1 F) 96.8 F L Temperature Source Temporal Pulse Rate (60-100) 69 Pulse Location Monitor Respiratory Rate (12-18) 18 Respiratory rate source Observation Oxygen Delivery Method Room Air Blood Pressure (90/60-120/80) 122/64 H Blood Pressure Mean (mm Hg) 83 Source Monitor Position Semi-Fowlers Blood Pressure Location Left Arm History Since Last Visit- (Skip if this is Patient's initial visit) Have you changed medications since your No last visit? Any new allergies or adverse reactions No Had a fall/change in ADL's that may No increase risk of falls Signs or symptoms of abuse and/or No neglect since last visit Have you been in the hospital since your No last visit? Has dressing in place as prescribed Yes Has compression in place as prescribed Yes Has offloadiing in place as prescribed N/A Experienced any changes in pain level or No management Left Footwear Regular Shoe Right Footwear Regular Shoe Pain Scale: 0-10 Numeric Is Patient Pain Free? No rt hand -Description Throbbing -Intensity 9 -Radiation Location 3rd and 4th digit to palm up med forearm -Alleviating Factors/Interventions Medication, Medicate when due,Inactivity/ Resting WC - Nurse 1 - General Ulcer Measurement Start: 04/04/24 13:48 Freq: Status: Active Protocol: Activity Type Activity Date Activity User E-sign Co-sign Detail Recorded Client Recorded Date Recorded By Document 04/04/24 13:48 KW [id number] 04/04/24 13:59 KW Document 04/11/24 14:23 KW [id number] 04/11/24 14:31 KW Document 04/18/24 14:39 ML [id number] 04/18/24 14:43 ML Document 04/25/24 15:11 KW [id number] 04/25/24 15:19 KW 04/04/24 04/11/24 04/18/24 13:48 14:23 14:39 Wound Center Nurse 1 #3- R HAND 3RD DIGIT, LATERAL -Current Size (cm) - Length 1 0 -Current Size (cm) - Width 0.2 0 -Current Size (cm) - Depth 0.1 0 -Total Square Cm 0.2 0 -Date of Last Picture (Recall this 04/04/24 field) -Exudate Amt Small -Exudate Type Serosanguineous -Wound Margin Distinct, Outline Attached -Granulation Amt Large (67-100%) -Granulation Quality Red -Necrosis Amt Small (1-33%) -Necrotic Tissue Type Adherent Slough -Texture (Carolyn-wound Skin Appearance) Assessed Assessed -Moisture (Carolyn-wound Skin Appearance) Maceration Assessed -Color (Carolyn-wound Skin Appearance) Assessed Assessed -Temperature (Carolyn-wound Skin No Abnormality Appearance) (Pt Warm) -Tenderness on Palpation (Carolyn-wound No Skin Appearance) -Ulcer Cleansing Rinsed/ Irrigated with Saline -Anesthetic Used 5% Lidocaine Gel #2- R HAND BASE OF 3RD DIGIT -Current Size (cm) - Length 2.3 2 1 -Current Size (cm) - Width 0.5 0.3 0.1 -Current Size (cm) - Depth 0.4 0.3 0.1 -Total Square Cm 1.15 0.6 0.1 -Date of Last Picture (Recall this 04/04/24 field) -Exudate Amt Medium Small Medium -Exudate Type Serosanguineous Serosanguineous Serosanguineous -Wound Margin Thickened Distinct, Distinct, Outline Outline Attached Attached -Granulation Amt Large (67-100%) Medium (34-66%) -Granulation Quality Catron -Slough/Fibrin Yes -Necrosis Amt Medium (34-66%) -Necrotic Tissue Type Adherent Slough -Texture (Carolyn-wound Skin Appearance) Assessed Assessed Assessed -Moisture (Carolyn-wound Skin Appearance) Maceration Assessed, Assessed Maceration -Color (Carolyn-wound Skin Appearance) Assessed Assessed Assessed -Temperature (Carolyn-wound Skin No Abnormality No Abnormality Appearance) (Pt Warm) (Pt Warm) -Tenderness on Palpation (Carolyn-wound No No Skin Appearance) -Ulcer Cleansing Rinsed/ Rinsed/ Rinsed/ Irrigated with Irrigated with Irrigated with Saline Saline Saline -Foul Odor after Cleansing No No -Anesthetic Used 5% Lidocaine 4% Lidocaine 5% Lidocaine Gel Solution Gel -Wound Comment(s) #1- R HAND/PALM -Combined with (Name of Wound-Exactly as it is documented) -Current Size (cm) - Length 3 1.5 2 -Current Size (cm) - Width 0.3 0.1 0.1 -Current Size (cm) - Depth 0.6 0.3 0.1 -Total Square Cm 0.9 0.15 0.2 -Date of Last Picture (Recall this 04/04/24 field) -Exudate Amt Small Small Small -Exudate Type Serosanguineous Serosanguineous Serosanguineous -Wound Margin Distinct, Distinct, Distinct, Outline Outline Outline Attached Attached Attached -Granulation Amt Medium (34-66%) Large (67-100%) Medium (34-66%) -Granulation Quality Catron Catron -Necrosis Amt Medium (34-66%) Medium (34-66%) -Necrotic Tissue Type Adherent Slough Adherent Slough -Texture (Carolyn-wound Skin Appearance) Assessed Assessed Assessed -Moisture (Carolyn-wound Skin Appearance) Assessed, Maceration Assessed Maceration -Color (Carolyn-wound Skin Appearance) Assessed Assessed Assessed -Temperature (Carolyn-wound Skin No Abnormality No Abnormality No Abnormality Appearance) (Pt Warm) (Pt Warm) (Pt Warm) -Tenderness on Palpation (Carolyn-wound No No Skin Appearance) -Ulcer Cleansing Rinsed/ Rinsed/ Rinsed/ Irrigated with Irrigated with Irrigated with Saline Saline Saline -Foul Odor after Cleansing No No No -Anesthetic Used 5% Lidocaine 4% Lidocaine 5% Lidocaine Gel Solution Gel 04/25/24 15:11 Wound Center Nurse 1 #3- R HAND 3RD DIGIT, LATERAL -Current Size (cm) - Length -Current Size (cm) - Width -Current Size (cm) - Depth -Total Square Cm -Date of Last Picture (Recall this field) -Exudate Amt -Exudate Type -Wound Margin -Granulation Amt -Granulation Quality -Necrosis Amt -Necrotic Tissue Type -Texture (Carolyn-wound Skin Appearance) -Moisture (Carolyn-wound Skin Appearance) -Color (Carolyn-wound Skin Appearance) -Temperature (Carolyn-wound Skin Appearance) -Tenderness on Palpation (Carolyn-wound Skin Appearance) -Ulcer Cleansing -Anesthetic Used #2- R HAND BASE OF 3RD DIGIT -Current Size (cm) - Length 0.1 -Current Size (cm) - Width 0.1 -Current Size (cm) - Depth 0.1 -Total Square Cm 0.01 -Date of Last Picture (Recall this field) -Exudate Amt Medium -Exudate Type Serosanguineous -Wound Margin Thickened -Granulation Amt -Granulation Quality -Slough/Fibrin -Necrosis Amt Large (67-100%) -Necrotic Tissue Type Adherent Slough -Texture (Carolyn-wound Skin Appearance) Assessed, Localized Edema -Moisture (Carolyn-wound Skin Appearance) Assessed, Maceration -Color (Carolyn-wound Skin Appearance) Assessed, Erythema -Temperature (Carolyn-wound Skin No Abnormality Appearance) (Pt Warm) -Tenderness on Palpation (Carolyn-wound No Skin Appearance) -Ulcer Cleansing -Foul Odor after Cleansing No -Anesthetic Used 5% Lidocaine Gel -Wound Comment(s) sutures intact, difficult to measure #1- R HAND/PALM -Combined with (Name of Wound-Exactly .5 as it is documented) -Current Size (cm) - Length 0.1 -Current Size (cm) - Width 0.1 -Current Size (cm) - Depth -Total Square Cm 0.01 -Date of Last Picture (Recall this field) -Exudate Amt Small -Exudate Type Serosanguineous -Wound Margin Distinct, Outline Attached -Granulation Amt Small (1-33%) -Granulation Quality Catron -Necrosis Amt Large (67-100%) -Necrotic Tissue Type Adherent Slough -Texture (Carolyn-wound Skin Appearance) Assessed,Callus -Moisture (Carolyn-wound Skin Appearance) Assessed -Color (Carolyn-wound Skin Appearance) Assessed -Temperature (Carolyn-wound Skin No Abnormality Appearance) (Pt Warm) -Tenderness on Palpation (Carolyn-wound No Skin Appearance) -Ulcer Cleansing Rinsed/ Irrigated with Saline -Foul Odor after Cleansing No -Anesthetic Used 5% Lidocaine Gel WC - Nurse 2 - General Ulcer CM Notes Start: 04/04/24 13:48 Freq: Status: Active Protocol: Activity Type Activity Date Activity User E-sign Co-sign Detail Recorded Client Recorded Date Recorded By Document 04/04/24 14:02 [id number] 04/04/24 14:11 Edit Result 04/04/24 14:02 JF (1) 000 04/05/24 14:52 Document 04/11/24 14:40 [id number] 04/11/24 14:53 Document 04/18/24 15:54 [id number] 04/18/24 15:59 Document 04/25/24 15:33 [id number] 04/25/24 15:35 (1) #2- R HAND BASE OF 3RD DIGIT - Clinical Debridement => Muscle / Fascia - Tissue Removed => Muscle,Fascia #1- R HAND/PALM - Clinical Debridement Subcutaneous => Muscle / Fascia - Tissue Removed Subcutaneous => Muscle,Fascia - Debridement - Subq, 1st 20sq cm Yes => No - Debridement - Muscle / Fascia, 1st => Yes 20sq cm 04/04/24 04/11/24 04/18/24 14:02 14:40 15:54 Wound Center Nurse 2 #3- R HAND 3RD DIGIT, LATERAL -Time 14:06 -Correct Patient Yes No -Correct Side, Site, Position Yes No -Correct Procedure Yes No -Procedure Performed Yes No -Type of Procedure Debridement -Clinical Debridement Subcutaneous -Tissue Removed Subcutaneous -Post Debridement (cm) - Length 1.0 0 -Post Debridement (cm) - Width 0.3 0 -Post Debridement (cm) - Depth 0.1 0 -Total Square (Post) (cm) 0.30 0 -Area of Debridement (cm) - Length 1.0 0 -Area of Debridement (cm) - Width 0.3 0 -Total Square (Area) (cm) 0.30 0 -Tunneling No -Undermining/Tunneling No -Circular Undermining No -Wound/Ulcer Outcome Not Healed Healed- Epithelialized -Ulcer Cleansing Rinsed/ Irrigated with Saline -Foul Odor after Cleansing No -Bioengineered Tissue No -Bleeding Controlled with Pressure -Treatment Response Procedure Tolerated Well -Offloading No -Debridement - Subq, 1st 20sq cm Yes #2- R HAND BASE OF 3RD DIGIT -Time 14:06 -Correct Patient Yes No No -Correct Side, Site, Position Yes No No -Correct Procedure Yes No No -Procedure Performed Yes No No -Type of Procedure Debridement -Clinical Debridement Muscle / Fascia -Tissue Removed Muscle,Fascia -Post Debridement (cm) - Length 2.7 -Post Debridement (cm) - Width 1.2 -Post Debridement (cm) - Depth 0.3 -Total Square (Post) (cm) 3.24 -Area of Debridement (cm) - Length 2.7 -Area of Debridement (cm) - Width 1.2 -Total Square (Area) (cm) 3.24 -Tunneling No -Undermining/Tunneling No -Circular Undermining No -Wound/Ulcer Outcome Not Healed Not Healed Not Healed -Ulcer Cleansing Rinsed/ Irrigated with Saline -Foul Odor after Cleansing No -Bioengineered Tissue No -Bleeding Controlled with Pressure -Treatment Response Procedure Tolerated Well -Offloading No -Debridement - Muscle / Fascia, 1st No 20sq cm #1- R HAND/PALM -Time 14:09 15:55 -Correct Patient Yes No Yes -Correct Side, Site, Position Yes No Yes -Correct Procedure Yes No Yes -Procedure Performed Yes No Yes -Type of Procedure Debridement Debridement -Clinical Debridement Muscle / Fascia Subcutaneous -Tissue Removed Muscle,Fascia Subcutaneous -Post Debridement (cm) - Length 3.2 1.0 -Post Debridement (cm) - Width 0.5 0.2 -Post Debridement (cm) - Depth 0.4 0.3 -Total Square (Post) (cm) 1.60 0.20 -Area of Debridement (cm) - Length 3.2 1.0 -Area of Debridement (cm) - Width 0.5 0.2 -Total Square (Area) (cm) 1.60 0.20 -Tunneling No No -Undermining/Tunneling No No -Circular Undermining No No -Wound/Ulcer Outcome Not Healed Not Healed Not Healed -Ulcer Cleansing Rinsed/ Rinsed/ Irrigated with Irrigated with Saline Saline -Foul Odor after Cleansing No No -Bioengineered Tissue No No -Bleeding Controlled with Pressure Pressure -Treatment Response Procedure Procedure Tolerated Well Tolerated Well -Offloading No No -Debridement - Subq, 1st 20sq cm No No Yes -Debridement - Muscle / Fascia, 1st Yes 20sq cm Pain Scale: 0-10 Numeric Is Patient Pain Free? Yes Yes Yes 04/25/24 15:33 Wound Center Nurse 2 #3- R HAND 3RD DIGIT, LATERAL -Time -Correct Patient -Correct Side, Site, Position -Correct Procedure -Procedure Performed -Type of Procedure -Clinical Debridement -Tissue Removed -Post Debridement (cm) - Length -Post Debridement (cm) - Width -Post Debridement (cm) - Depth -Total Square (Post) (cm) -Area of Debridement (cm) - Length -Area of Debridement (cm) - Width -Total Square (Area) (cm) -Tunneling -Undermining/Tunneling -Circular Undermining -Wound/Ulcer Outcome -Ulcer Cleansing -Foul Odor after Cleansing -Bioengineered Tissue -Bleeding Controlled with -Treatment Response -Offloading -Debridement - Subq, 1st 20sq cm #2- R HAND BASE OF 3RD DIGIT -Time -Correct Patient No -Correct Side, Site, Position No -Correct Procedure No -Procedure Performed No -Type of Procedure -Clinical Debridement -Tissue Removed -Post Debridement (cm) - Length -Post Debridement (cm) - Width -Post Debridement (cm) - Depth -Total Square (Post) (cm) -Area of Debridement (cm) - Length -Area of Debridement (cm) - Width -Total Square (Area) (cm) -Tunneling -Undermining/Tunneling -Circular Undermining -Wound/Ulcer Outcome Not Healed -Ulcer Cleansing -Foul Odor after Cleansing -Bioengineered Tissue -Bleeding Controlled with -Treatment Response -Offloading -Debridement - Muscle / Fascia, 1st 20sq cm #1- R HAND/PALM -Time 15:34 -Correct Patient Yes -Correct Side, Site, Position Yes -Correct Procedure Yes -Procedure Performed Yes -Type of Procedure Debridement -Clinical Debridement Subcutaneous -Tissue Removed Subcutaneous -Post Debridement (cm) - Length 1.0 -Post Debridement (cm) - Width 0.2 -Post Debridement (cm) - Depth 0.1 -Total Square (Post) (cm) 0.20 -Area of Debridement (cm) - Length 1.0 -Area of Debridement (cm) - Width 0.2 -Total Square (Area) (cm) 0.20 -Tunneling No -Undermining/Tunneling No -Circular Undermining No -Wound/Ulcer Outcome Not Healed -Ulcer Cleansing Rinsed/ Irrigated with Saline -Foul Odor after Cleansing No -Bioengineered Tissue No -Bleeding Controlled with Pressure -Treatment Response Procedure Tolerated Well -Offloading No -Debridement - Subq, 1st 20sq cm Yes -Debridement - Muscle / Fascia, 1st 20sq cm Pain Scale: 0-10 Numeric Is Patient Pain Free? Yes WC - Nurse 3 - General Ulcer D/C NN Start: 04/04/24 13:48 Freq: Status: Active Protocol: Activity Type Activity Date Activity User E-sign Co-sign Detail Recorded Client Recorded Date Recorded By Document 04/04/24 14:29 DL [id number] 04/04/24 14:31 DL Document 04/11/24 14:56 BMF [id number] 04/11/24 14:57 BMF Document 04/18/24 16:03 KW [id number] 04/18/24 16:04 KW Document 04/25/24 16:03 KW [id number] 04/25/24 16:04 KW 04/04/24 04/11/24 04/18/24 14:29 14:56 16:03 Wound Care Center Nurse 3 #3- R HAND 3RD DIGIT, LATERAL -Ulcer Cleansing Soap and Water -Foul Odor after Cleansing No -Primary Dressing Applied Silvercel -Primary Dressing Covered/Secured with Dry Gauze & Roll Gauze, Secured with Tape -Silvercel 1 #2- R HAND BASE OF 3RD DIGIT -Ulcer Cleansing Soap and Water Rinsed/ Irrigated with Saline -Foul Odor after Cleansing No No -Primary Dressing Applied Silvercel NonAdherent Silvercel Contact Layer -Other Dressing XEROFORM; DRSG PER DL CARE ANALYST -Primary Dressing Covered/Secured with Dry Gauze & Dry Gauze & Dry Gauze & Roll Gauze, Roll Gauze, Roll Gauze, Secured with Secured with Secured with Tape Tape Tape -Silvercel 1 1 #1- R HAND/PALM -Ulcer Cleansing Soap and Water Rinsed/ Irrigated with Saline -Foul Odor after Cleansing No No -Primary Dressing Applied NonAdherent Contact Layer -Other Dressing silvercel XEROFORM; DRSG silver alginate PER DL CARE ANALYST -Primary Dressing Covered/Secured with Dry Gauze & Dry Gauze & Dry Gauze Roll Gauze, Roll Gauze, Secured with Secured with Tape Tape R HAND -Compression Wrap Zachery Wrap -Other Treatment Response Procedure Procedure Tolerated Well Tolerated Well Pain Scale: 0-10 Numeric Is Patient Pain Free? Yes Yes Yes WC - Visit Discharge Discharge Condition Stable Stable Ambulatory Status Ambulatory Ambulatory Transportation Private Auto Private [facility] Facility Type Home Health Orders Sent Yes 04/25/24 16:03 Wound Care Center Nurse 3 #3- R HAND 3RD DIGIT, LATERAL -Ulcer Cleansing -Foul Odor after Cleansing -Primary Dressing Applied -Primary Dressing Covered/Secured with -Silvercel #2- R HAND BASE OF 3RD DIGIT -Ulcer Cleansing -Foul Odor after Cleansing -Primary Dressing Applied Silvercel -Other Dressing soak for 10 min then applied dressing -Primary Dressing Covered/Secured with Dry Gauze & Roll Gauze, Secured with Tape -Silvercel 1 #1- R HAND/PALM -Ulcer Cleansing -Foul Odor after Cleansing -Primary Dressing Applied -Other Dressing soaked hand for 10 min then applied silver -Primary Dressing Covered/Secured with Dry Gauze & Roll Gauze, Secured with Tape R HAND -Compression Wrap -Other coban Treatment Response Pain Scale: 0-10 Numeric Is Patient Pain Free? Yes WC - Visit Discharge Discharge Condition Ambulatory Status Transportation Facility Type Orders Sent Assessment/Plan Assessment/Plan (1) Infected hand: CODE(S): L08.9 - Local infection of the skin and subcutaneous tissue, unspecified PLAN: Discussed smoking cessation and sugar control at length today. Need to discuss with PCP Nohemi (patient with multiple comorbidities and need to coordinate any new medications with his PCP). Discussed nutrition and wound healing as well. F/u with me in 2 days to check progress before the Holiday. Needs to continue TID Dial soap soaks and Silver Alginate dressing.
== END 2024-04-30 23:59 | disposition home or self-care (01) ==
LOC: WC 15:15
PROVIDERS: PCP Nurse Practitioner Family; Referring Provider Surgery Plastic and Reconstructive Surgery; Visit Provider Surgery Plastic and Reconstructive Surgery
DX: M65.949 Unspecified synovitis and tenosynovitis, unspecified hand (principal); M00.849 Arthritis due to other bacteria, unspecified hand; E11.42 Type 2 diabetes mellitus with diabetic polyneuropathy; Z79.4 Long term (current) use of insulin; F17.210 Nicotine dependence, cigarettes, uncomplicated; R19.7 Diarrhea, unspecified; L08.9 Local infection of the skin and subcutaneous tissue, unspecified
CPT/HCPCS: 11042; 11043; 82962; 99214; G0463

== ENCOUNTER 2024-05-05 09:54 | Day surgery (SDC) | payer MEDICAID, SELFPAY ==
[2024-05-05] VITALS (9 sets, daily range): BP systolic 97–111; BP diastolic 56–81; PULSE 54–62; RESP 16–17; TEMP 36.2–36.8; O2SAT 92–95; BMI 37.1
[2024-05-05 10:57] LABS: Bedside Glucose 105 mg/dL (74-106)
--- NOTE | 2024-05-05 11:55 | PCM.PRE.AN2 ---
ASA Classification* ASA Classification ASA Classification: 3 Assessment & Plan Anesthesia* Anesthesia Assessment Anesthesia Assessment: Discussed sedation and/or anesthesia options, risks, benefits, and alternatives with patient/parents/legal guardian/POA. Questions invited. The patient/parents/legal guardian/POA seems to understand and agrees to proceed with anesthesia plan. Reviewed the physical assessment, medical history, allergy history and patient home medications list prior to surgery/procedure/anesthetic and documented any changes. Performed airway and anesthesia risk assessments. Anesthesia Type Anesthesia Type: MAC and Block (Jerald block for right upper arm) History Source History Obtained from:: Patient and Chart Anesthesia Focused Assessment* Temperature: 98.2 F Pulse Rate: 62 Blood Pressure: 107/56 Respiratory Rate: 17 Pulse Ox: 93 Oxygen Delivery Method: Room Air Airway Assessment Mouth opens: >3 cm Mallampati Score: I Teeth Condition: Missing (Patient is edentulous.) Neck Range of motion (ROM): Limited ROM (Somewhat decreased extension.) Focused Labs Anesthesia Preop lab: CBC WBC 5.8 K/mm3 (4.4-11.0) 04/14/24 06:25 RBC 4.11 M/mm3 (4.6-6.2) L 04/14/24 06:25 Hgb 13.9 g/dL (13.0-16.5) 04/14/24 06:25 Hct 40.8 % (40-54) 04/14/24 06:25 Plt Count 109 K/mm3 (150-450) L 04/14/24 06:25 CHEMISTRY Potassium 3.5 mmol/L (3.5-5.1) 04/14/24 06:25 Sodium 141 mmol/L (136-145) 04/14/24 06:25 Magnesium 2.0 mg/dL (1.6-2.6) 04/14/24 06:25 BUN 17 mg/dL (7-18) 04/14/24 06:25 Creatinine 0.70 mg/dL (0.70-1.30) 04/14/24 06:25 Glucose 116 mg/dL (74-106) H 04/14/24 06:25 POC Glucose 105 mg/dL (74-106) 05/05/24 10:36 TSH 1.900 uIU/mL (0.358-3.740) 03/08/24 06:06 COAG PT 14.2 SECONDS (11.7-14.9) 03/06/24 15:50 Pre-Assessment Diagnosis/Proposed Procedure Planned Operative Procedure(s): Delayed primary closure of the right volar hand wound with skin substitute placement Anesthesia History Anesthesia History - electroneurodiagnostic technologist: Anesthesia History - electroneurodiagnostic technologist Hx Hospitalization Yes 05/04/24 08:59 Any Problems With Anesthesia No 05/04/24 08:59 Cholinesterase deficiency No 05/04/24 08:59 You/Your Family Experience No 05/04/24 08:59 fever (hyperthermia) with Relationship Recent Exposure to Contagious No 05/05/24 10:31 Disease Does patient have nerve No 05/04/24 08:59 stimulator Patient instructed to have device shut off --Does patient have Pacemaker No 05/05/24 10:31 or ICD? When Was Last Pacemaker Check QUESTION #4 FULL TEXT: You/Your Family Experience fever (hyperthermia) with Anesthesia Last Oral Intake Last Oral intake: Last Oral Intake NPO since 05:00 05/05/24 10:31 Meds taken in AM with sips of Yes 05/05/24 10:31 water? Meds patient instructed to SEE HOME MED LIST 05/05/24 10:31 take am of surgery Any additional information?: Yes Meds taken in AM with sips of water?: Yes PONV PONV - electroneurodiagnostic technologist: PONV - electroneurodiagnostic technologist Female No 05/04/24 08:59 HX of Motion Sickness No 05/04/24 08:59 HX of N/V After Surgery No 05/04/24 08:59 Non-Smoker No 05/04/24 08:59 Duration of Surgery greater No 05/04/24 08:59 than 60 minutes Number of Risk Factors PONV Score Height & Weight Height & Weight: Anesthesia: Height & Weight Height 5 ft 9 in 05/05/24 10:31 Weight: 114.1 kg 05/05/24 10:31 Body Mass Index (BMI) 37.1 05/05/24 10:31 Respiratory Assessment Respiratory Assessment - electroneurodiagnostic technologist: Respiratory Tract Infection Hx - electroneurodiagnostic technologist Hx Respiratory Tract Infection No 05/04/24 08:59 STOP Sleep Apnea STOP Sleep Apnea - electroneurodiagnostic technologist: STOP Sleep Apnea - electroneurodiagnostic technologist Hx Hypertension Yes: controlled with med 05/04/24 08:59 Hx Sleep Apnea Yes 05/04/24 08:59 CPAP No 05/04/24 08:59 BIPAP Yes 05/04/24 08:59 Do you snore loudly (louder than talking or can be heard Do you often feel tired/ fatigued/ sleepy during daytime? Has anyone observed you stop breathing during sleep? STOP Results Positive 05/04/24 08:59 QUESTION #5 FULL TEXT : Do you snore loudly (louder than talking or can be heard through closed doors)? Tobacco Use History Tobacco Use History - electroneurodiagnostic technologist: Tobacco Use History - electroneurodiagnostic technologist Tobacco Use Smoking Status Current every day smoker 05/04/24 08:59 Hx Tobacco Use Yes 05/04/24 08:59 Years Smoking Packs Smoked per Day 0.25 05/04/24 08:59 Smoking Cessation Date was within the last 15 years Hx Smoking Cessation Date Hx Smoking Cessation No 05/04/24 08:59 Counseling Any additional information?: Yes Smoking Status: Current every day smoker (Patient smoked today.) Hematologic Medial History Hematologic Hx - electroneurodiagnostic technologist: 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 Specify any problems Hx of Preganancy in last 3 N/A 05/04/24 08:59 Months Nurse Filling Out Transfusion NBUCHER 05/04/24 08:59 & Questions: Date: 05/04/24 05/04/24 08:59 Time: 09:00 05/04/24 08:59 Patient unable to answer at this time (ie. confused, unrespo /Reproduction History /Reproductive History - electroneurodiagnostic technologist: /Reproductive Hx- electroneurodiagnostic technologist Hx Now Gestational Age (in weeks): EDC: Hx Hx Para Hx Section SAB No 05/04/24 08:59 Active Medications Active Medications: Current Medications Generic Name Dose Route Start Last Admin Trade Name Freq PRN Reason Stop Dose Admin Cefazolin Sodium 2 gm/ N/A 20 mls @ 400 mls/hr 05/05/24 12:00 IV 05/05/24 12:02 PREOP ONE PFSH Medical History Open wound, hand Infected hand Insulin dependent diabetes mellitus Arthritis Kidney stone TIA (transient ischemic attack) Seizures Gastric reflux Hypertension History of CVA in adulthood Antiplatelet or antithrombotic long-term use Flexor tenosynovitis of finger Wears glasses No natural teeth Diabetes Thyroid disease High cholesterol Blackout History of GI bleed Smoker BiPAP (biphasic positive airway pressure) dependence Sleep apnea Shortness of breath on exertion Chronic cough History of edema Leg cramps History of stress test Cardiology follow-up encounter Elevated LFTs Back pain Dorsalgia of thoracolumbar region Patellofemoral arthritis of right knee Bilateral knee pain Situational syncope Chest pain, unspecified Type 2 diabetes mellitus Essential hypertension Pneumonia due to other streptococci Atherosclerosis of coronary artery of [place] heart without angina pectoris Right bundle-branch block Gastroesophageal reflux disease Hypertriglyceridemia Obstructive sleep apnea Body mass index (BMI) 35 or more Tobacco abuse COPD (chronic obstructive pulmonary disease) MASON (dyspnea on exertion) Morbid obesity due to excess calories Localized edema Long-term use of high-risk medication Hyperlipidemia Difficulty swallowing Stage 2 moderate COPD by GOLD classification Sinus drainage Home Medications ?Medication ?Instructions ?Recorded ?Last Taken ?Type albuterol sulfate 90 mcg/actuation 6.7 g inhalation PRN PRN Wheezing 12/06/14 05/04/24 History aerosol inhaler ergocalciferol (vitamin D2) 1,250 50,000 unit PO Q7D SUPPLEMENT 12/06/14 05/04/24 History mcg (50,000 unit) capsule fluticasone propionate 50 1 spray NASAL DAILY ALLERGIES 05/05/16 04/10/24 History mcg/actuation nasal spray,suspension aspirin 81 mg tablet,delayed 81 mg PO DAILY HEART 08/11/19 05/04/24 History release duloxetine 60 mg capsule,delayed 60 mg PO DAILY MOOD 08/11/19 05/04/24 History release levothyroxine 50 mcg tablet 75 mcg PO DAILY THYROID 08/11/19 05/05/24 History losartan 50 mg tablet 25 mg PO QDAY BLOOD PRESSURE 08/11/19 05/04/24 History mirtazapine 15 mg tablet 45 mg PO QHS SLEEP AND RLS 08/11/19 05/04/24 History multivitamin 1 cap PO DAILY SUPPLEMENT 08/11/19 05/04/24 History nitroglycerin 0.4 mg sublingual 0.4 mg sublingual ONCE PRN chest 08/11/19 Unknown History tablet (Nitrostat) pain budesonide-formoterol HFA 160 2 puff inhalation BID COPD #10.2 12/05/19 05/04/24 Rx mcg-4.5 mcg/actuation aerosol grams inhaler clopidogrel 75 mg tablet 75 mg PO QDAY BLOOD THINNER #90 12/29/19 05/04/24 Rx tabs furosemide 40 mg tablet (Lasix) 60 mg PO DAILY WATER PILL 11/15/20 05/04/24 History metformin 1,000 mg tablet 1,000 mg PO BID DIABETES 11/15/20 05/04/24 History isosorbide mononitrate 60 mg 30 mg (1/2 x 60 mg) PO BID HEART 12/03/21 05/05/24 Rx tablet,extended release 24 hr #90 tabs omeprazole 40 mg capsule,delayed 40 mg PO DAILY GERD 1 month #30 06/05/23 05/05/24 Rx release caps rosuvastatin 20 mg tablet 20 mg PO QHS CHOLESTEROL 1 month 06/05/23 05/04/24 Rx #30 tabs empagliflozin 25 mg tablet 25 mg PO DAILY DAIBETES #30 tabs 11/24/23 05/04/24 Rx (Jardiance) fluticasone fur. 100 mcg-umeclid 1 ea inhalation DAILY copd 03/07/24 05/05/24 History 62.5 mcg-vilant 25 mcg inhalat.powder (Trelegy Ellipta) gabapentin 800 mg tablet 800 mg PO TID pain 03/07/24 05/04/24 History dulaglutide 1.5 mg/0.5 mL 1.5 mg subcut MEONN DIABETES 03/22/24 04/24/24 History subcutaneous pen injector (Trulicity) diphenoxylate-atropine 2.5 2 tab PO TID PRN diarrhea #20 tabs 04/10/24 Unknown Rx mg-0.025 mg tablet (Lomotil) Allergy/AdvReac Type Severity Reaction Status Date / Time No Known Allergies Allergy Verified 05/05/24 10:30 Family History Father CVA (cerebral vascular accident) Brother CAD (coronary artery disease) Diabetes Mother COPD (chronic obstructive pulmonary disease) Sarcoidosis Surgical History History of hand surgery History of cardiac catheterization S/P laparoscopic cholecystectomy H/O umbilical hernia repair History of coronary artery stent placement (~03/25/16) History of carpal tunnel surgery of right wrist History of left heart catheterization Social History household members: spouse current occupational status: disabled Smoking Status: Current every day smoker tobacco type: cigarettes Tobacco: How many years used: 30 second hand exposure: Yes alcohol intake: never substance use type: does not use caffeine: Yes Type: coffee Number of servings: 2 what type of physical activity do you participate in: none Review of Systems (Anesthesia) ROS Narrative System reviewed and no additional complaints, except as documented.
--- NOTE | 2024-05-05 12:13 | PCM.HP.STD ---
HPI - General HPI Narrative Current Encounter (DATE OF SURGERY H&P UPDATE): I saw and examined the patient this morning in pre-operative holding. We discussed risks and benefits of today's surgery and they would like to proceed. NO CHANGE in health history since last seen and evaluated. Ready to proceed with surgery. [facility] Medical History Open wound, hand Infected hand Insulin dependent diabetes mellitus Arthritis Kidney stone TIA (transient ischemic attack) Seizures Gastric reflux Hypertension History of CVA in adulthood Antiplatelet or antithrombotic long-term use Flexor tenosynovitis of finger Wears glasses No natural teeth Diabetes Thyroid disease High cholesterol Blackout History of GI bleed Smoker BiPAP (biphasic positive airway pressure) dependence Sleep apnea Shortness of breath on exertion Chronic cough History of edema Leg cramps History of stress test Cardiology follow-up encounter Elevated LFTs Back pain Dorsalgia of thoracolumbar region Patellofemoral arthritis of right knee Bilateral knee pain Situational syncope Chest pain, unspecified Type 2 diabetes mellitus Essential hypertension Pneumonia due to other streptococci Atherosclerosis of coronary artery of [place] heart without angina pectoris Right bundle-branch block Gastroesophageal reflux disease Hypertriglyceridemia Obstructive sleep apnea Body mass index (BMI) 35 or more Tobacco abuse COPD (chronic obstructive pulmonary disease) MASON (dyspnea on exertion) Morbid obesity due to excess calories Localized edema Long-term use of high-risk medication Hyperlipidemia Difficulty swallowing Stage 2 moderate COPD by GOLD classification Sinus drainage Home Medications ?Medication ?Instructions ?Recorded ?Last Taken ?Type albuterol sulfate 90 mcg/actuation 6.7 g inhalation PRN PRN Wheezing 12/06/14 05/04/24 History aerosol inhaler ergocalciferol (vitamin D2) 1,250 50,000 unit PO Q7D SUPPLEMENT 12/06/14 05/04/24 History mcg (50,000 unit) capsule fluticasone propionate 50 1 spray NASAL DAILY ALLERGIES 05/05/16 04/10/24 History mcg/actuation nasal spray,suspension aspirin 81 mg tablet,delayed 81 mg PO DAILY HEART 08/11/19 05/04/24 History release duloxetine 60 mg capsule,delayed 60 mg PO DAILY MOOD 08/11/19 05/04/24 History release levothyroxine 50 mcg tablet 75 mcg PO DAILY THYROID 08/11/19 05/05/24 History losartan 50 mg tablet 25 mg PO QDAY BLOOD PRESSURE 08/11/19 05/04/24 History mirtazapine 15 mg tablet 45 mg PO QHS SLEEP AND RLS 08/11/19 05/04/24 History multivitamin 1 cap PO DAILY SUPPLEMENT 08/11/19 05/04/24 History nitroglycerin 0.4 mg sublingual 0.4 mg sublingual ONCE PRN chest 08/11/19 Unknown History tablet (Nitrostat) pain budesonide-formoterol HFA 160 2 puff inhalation BID COPD #10.2 12/05/19 05/04/24 Rx mcg-4.5 mcg/actuation aerosol grams inhaler clopidogrel 75 mg tablet 75 mg PO QDAY BLOOD THINNER #90 12/29/19 05/04/24 Rx tabs furosemide 40 mg tablet (Lasix) 60 mg PO DAILY WATER PILL 11/15/20 05/04/24 History metformin 1,000 mg tablet 1,000 mg PO BID DIABETES 11/15/20 05/04/24 History isosorbide mononitrate 60 mg 30 mg (1/2 x 60 mg) PO BID HEART 12/03/21 05/05/24 Rx tablet,extended release 24 hr #90 tabs omeprazole 40 mg capsule,delayed 40 mg PO DAILY GERD 1 month #30 06/05/23 05/05/24 Rx release caps rosuvastatin 20 mg tablet 20 mg PO QHS CHOLESTEROL 1 month 06/05/23 05/04/24 Rx #30 tabs empagliflozin 25 mg tablet 25 mg PO DAILY DAIBETES #30 tabs 11/24/23 05/04/24 Rx (Jardiance) fluticasone fur. 100 mcg-umeclid 1 ea inhalation DAILY copd 03/07/24 05/05/24 History 62.5 mcg-vilant 25 mcg inhalat.powder (Trelegy Ellipta) gabapentin 800 mg tablet 800 mg PO TID pain 03/07/24 05/04/24 History dulaglutide 1.5 mg/0.5 mL 1.5 mg subcut MENON DIABETES 03/22/24 04/24/24 History subcutaneous pen injector (Trulicity) diphenoxylate-atropine 2.5 2 tab PO TID PRN diarrhea #20 tabs 04/10/24 Unknown Rx mg-0.025 mg tablet (Lomotil) Allergy/AdvReac Type Severity Reaction Status Date / Time No Known Allergies Allergy Verified 05/05/24 10:30 Family History Father CVA (cerebral vascular accident) Brother CAD (coronary artery disease) Diabetes Mother COPD (chronic obstructive pulmonary disease) Sarcoidosis Surgical History History of hand surgery History of cardiac catheterization S/P laparoscopic cholecystectomy H/O umbilical hernia repair History of coronary artery stent placement (~03/25/16) History of carpal tunnel surgery of right wrist History of left heart catheterization Social History household members: spouse current occupational status: disabled Smoking Status: Current every day smoker (Patient smoked today.) tobacco type: cigarettes Tobacco: How many years used: 30 second hand exposure: Yes alcohol intake: never substance use type: does not use caffeine: Yes Type: coffee Number of servings: 2 what type of physical activity do you participate in: none Vital Signs Vital Signs Vital Signs: 05/05/24 10:31 05/05/24 10:31 05/05/24 12:05 Temperature 98.2 F 98.2 F Temperature Source Temporal Pulse Rate 62 62 Respiratory Rate 17 17 Respiratory Pattern Normal Blood Pressure 107/56 L 107/56 L Blood Pressure Mean 73 Blood Pressure Source Monitor Blood Pressure Position Semi-Fowlers Blood Pressure Location Left Arm Pulse Ox 93 93 Oxygen Delivery Method Room Air Room Air Weight Weight: 251 lb 8.759 oz Body Mass Index (BMI) 37.1 Physical Exam Narrative Right upper extremity INSPECTION: Dressing removed. No purulence. Incisions clean/dry/intact. Area of dehiscence in the distal palm with glistening tendon at the base of the wound. Still exposed tendon. CT incision healed Motor: Able to bend and extend all MP, PIP, and DIP joints. Able to fire thenar eminence Sensory: Intact to light touch on the radial and ulnar borders. Vascular: Finger tips are warm and well perfused with <2 second capillary refill. Const alert and oriented x3 Eyes EOMs intact bilaterally Neck full ROM Chest inspection of chest normal Resp normal respiratory effort Cardio regular rate Extremity full ROM Extremity Narrative: SCDs on and activated Results Lab / Micro Data Labs: Laboratory Results - last 24 hr 05/05/24 10:36: POC Glucose 105 Assessment & Plan Assessment/Plan (1) Open wound, hand: QUALIFIERS: Encounter type: subsequent encounter Laterality: right PLAN: INTERVAL H&P PLAN, DATE OF SURGERY: We will proceed with surgery today. I talked the patient extensively about the risks of surgery, including bleeding, infection, damage to surrounding structures, surgical site dehiscence and wound formation, need for wound care, need for repeat operations, failure to obtain the desired result, DVT/PE, and the risks of anesthesia including . The benefits and alternatives of this surgery were also discussed. All of their questions were answered, and they agreed to proceed with surgery. Arnold ASHFORD
[2024-05-05] MEDS: Cefazolin 2 GM in Syringe IV (12:21)
[2024-05-05] MEDS: Lidocaine 0.5% (50 ml) 50 ML Vial (12:29)
[2024-05-05] MEDS: Bupiv/Epi 0.25% 30 ML Vial (13:40)
--- NOTE | 2024-05-05 14:55 | PCM.POST.ANE ---
Anesthesia: Postop Eval I Current Vital Signs Temperature: 97.2 F Pulse Rate: 62 Blood Pressure: 111/81 Respiratory Rate: 16 Pulse Ox: 92 Oxygen Delivery Method: Room Air Assessment Airway patent: Yes Spontaneous unlabored respirations: Yes Mental status: Awake and Calm nausea: No Vomiting: No Anesthesia Complication: No Fluid Hydration Crystalloid volume administer (ml): 50 Total IV fluid infused: 50 Progress Note Anesthesia document: Postop Eval 1 completed: Yes
--- NOTE | 2024-05-05 14:56 | POSTOPAN2_ITS ---
Anesthesia Postop Eval I Sum Postop Eval Completion status Anesthesia document: Postop Eval 1 completed: Yes Anesthesia Postop Eval I Summary Anesthesia Postop Eval I Summary: Anesthesia Postop Eval I: Assessment Summary Airway patent Yes 05/05/24 14:56 AGRICULTURAL RESEARCH [email or web address] Spontaneous unlabored Yes 05/05/24 14:56 AGRICULTURAL RESEARCH [email or web address] respirations Mental status Awake,Calm 05/05/24 14:56 AGRICULTURAL RESEARCH [email or web address] nausea No 05/05/24 14:56 AGRICULTURAL RESEARCH [email or web address] Vomiting No 05/05/24 14:56 AGRICULTURAL RESEARCH [email or web address] Anesthesia Postop Eval I: Fluid Summary Crystalloid volume administer 50 05/05/24 14:56 AGRICULTURAL RESEARCH TECHNICIAN.MDOT (ml) Colloids volume administered ( ml) Blood Product volume administered (ml) Total IV fluid infused 50 05/05/24 14:56 AGRICULTURAL RESEARCH [email or web address] Anesthesia Postop Eval I: Summary Notes Anesthesia Complication No 05/05/24 14:56 AGRICULTURAL RESEARCH [email or web address] Anesthesia Complication Comment: Post-operative progress note Anesthesia: Postop Eval II Evaluation Mental status: Awake and Calm Pain Level: 2 nausea: No Vomiting: No Complications Anesthesia Complication: No
--- NOTE | 2024-05-05 14:56 | PCM.POSTANE2 ---
Anesthesia Postop Eval I Sum Postop Eval Completion status Anesthesia document: Postop Eval 1 completed: Yes Anesthesia Postop Eval I Summary Anesthesia Postop Eval I Summary: Anesthesia Postop Eval I: Assessment Summary Airway patent Yes 05/05/24 14:56 DECK LID FITTER.MDOT Spontaneous unlabored Yes 05/05/24 14:56 DECK LID FITTER.MDOT respirations Mental status Awake,Calm 05/05/24 14:56 DECK LID FITTER.MDOT nausea No 05/05/24 14:56 DECK LID FITTER.MDOT Vomiting No 05/05/24 14:56 DECK LID FITTER.MDOT Anesthesia Postop Eval I: Fluid Summary Crystalloid volume administer 50 05/05/24 14:56 DECK LID FITTER.MDOT (ml) Colloids volume administered ( ml) Blood Product volume administered (ml) Total IV fluid infused 50 05/05/24 14:56 DECK LID FITTER.MDOT Anesthesia Postop Eval I: Summary Notes Anesthesia Complication No 05/05/24 14:56 DECK LID FITTER.MDOT Anesthesia Complication Comment: Post-operative progress note Anesthesia: Postop Eval II Evaluation Mental status: Awake and Calm Pain Level: 2 nausea: No Vomiting: No Complications Anesthesia Complication: No
--- NOTE | 2024-05-05 20:17 | PCM.OPRPT ---
Operative Report (Standard) Operative Information Surgery/Procedure Performed: 1) Excision of right hand wound, 2 x 1 cm (CPT 27958) 1) Local soft tissue rearrangement/adjacent tissue transfer, Right Hand 4 x 5 cm (CPT: 15530) 2) Integra dermal substitute placement, 1 x 1 cm (CPT: 39099) Surgeon: Sergio Edwards Date of Procedure: 05/05/24 Procedure Start Time: 12:46 Procedure Stop Time: 13:47 Pre-Operative Diagnosis: Right hand wound with exposed flexor tendon Post-Operative Diagnosis: Same Select all DRAINS/GRAFTS/IMPLANTS that apply: None Type of Anesthesia: Local MAC (Jerald block + 10 cc of 0.25% Marcaine with 1:200,000 epinephrine ) Estimated Blood Loss: 20 cc Fluids Replaced: 30 cc Specimen collected: Yes Description of specimen(s) removed: Culture of the soft tissues at the base of the wound Description of surgery: Indications: Lisandro Garibay is a 58-year-old male with type 2 diabetes and history of COPD (significant smoking history) who currently has a nonhealing wound with exposed flexor tendon of the left long finger MCP joint status post incision and drainage for clearance of MSSA flexor tenosynovitis. Multiple attempts were made for delayed primary closure of the wound (2 times) without success. Patient presents today for more definitive treatment with local soft tissue rearrangement/possible dermal substitute placement. I talked him extensively about these options today in preop about moving tissue to cover the flexor tendon as we have continued to have breakdown over the tendon with exposure. He understands the risks, benefits, and alternatives to this procedure and would like to proceed. He has cut back on cigarettes. Procedure details: Patient was correctly identified in preoperative holding and taken back to the operating room he was administered a [place] block. He was given time to take effect and he was prepped and draped in sterile fashion and a timeout was performed. I began the procedure by excising the wound and the wound edges with a 15 blade scalpel and a currette in and around the wound cavity with the exposed flexor tendon at the base for a sharp excision of 1 x 2 cm. I excised biofilm, granulation tissue, callus, and subcutaneous tissue. The wound was cultured. The wound was then washed out with 450 cc of Irrisept and copious amounts of saline. I then began closure by opening the previous Scarlet's incision with a 15 blade scalpel and raising the Shakira flaps and making a backcut on the proximal Shakira flap to extended in the palm slightly. I attempted to rotate and advance the Shakira flap back into position, even making a small Burow triangle approximately on the rotation flap component in the palm, however this did not move well over the flexor tendon. I therefore made a backcut towards the index finger to create a triangular advancement flap approximately the same size as the missing tissue of the now scarred and contracted Shakira flap that failed to heal. This triangular flap, which was undermined in the subcutaneous plane above the palmar fascia (care taken to preserve the digital neurovascular bundles), was then rotated and advanced ulnarly into position over the exposed flexor tendon and sutured into position after hemostasis was obtained with bipolar electrocautery after the tourniquet was let down. Before closure the flap was assessed and the tip of the flap was bleeding nicely. The flap was sutured into place with 3-0 Chromic Gut suture, as were the rest of the Shakira flaps. Good coverage over the tendon was obtained. This made a small defect between the index and long fingers, and I was concerned that this could cause a contracture in the webspace. I therefore placed a 1 x 1 cm piece of Integra over the wound and sutured in place with a 3-0 Chromic Gut suture and bolstered it with a Xeroform. Xeroform was applied over the incisions. A radial gutter dorsal blocking splint was then applied with the fingers in slight slight flexion to take tension off the closure and immobilize for wound healing. The patient tolerated the procedure well. He was anesthetized with 10 cc of quarter percent Marcaine at the end of the case. Postoperative plan: Continue splint immobilization and patient placed on Keflex 500 mg p.o. 3 times daily for 7 days, with the plan to follow-up cultures and see the patient in the wound care center on May 09 to change the dressing and examine the wound. Surgical Findings: Unable to read advance Shakira flap into position without significant tension and likely repeat dehiscence, therefore a flap was designed for closure. 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
== END 2024-05-05 15:07 | disposition home or self-care (01) ==
LOC: SDC 09:56 → AC 09:57
PROVIDERS: PCP Nurse Practitioner Family; Referring Provider Surgery Plastic and Reconstructive Surgery; Visit Provider Surgery Plastic and Reconstructive Surgery
PROC: (CPT 14041; principal; 2024-05-05 11:45)
DX: T81.31XA Disruption of external operation (surgical) wound, not elsewhere classified, initial encounter (principal); J44.9 Chronic obstructive pulmonary disease, unspecified; E11.9 Type 2 diabetes mellitus without complications; F17.210 Nicotine dependence, cigarettes, uncomplicated; Z79.85 Long-term (current) use of injectable non-insulin antidiabetic drugs; E78.00 Pure hypercholesterolemia, unspecified; Z79.84 Long term (current) use of oral hypoglycemic drugs; Z79.82 Long term (current) use of aspirin; Z79.51 Long term (current) use of inhaled steroids; Z79.02 Long term (current) use of antithrombotics/antiplatelets; I25.10 Atherosclerotic heart disease of native coronary artery without angina pectoris; I10 Essential (primary) hypertension; K21.9 Gastro-esophageal reflux disease without esophagitis; Z79.899 Other long term (current) drug therapy; Z79.890 Hormone replacement therapy; Y83.8 Other surgical procedures as the cause of abnormal reaction of the patient, or of later complication, without mention of misadventure at the time of the procedure; E07.9 Disorder of thyroid, unspecified
CPT/HCPCS: 14041; 15275; 15004; 00400; 82962; 87015; 87070; 87075; 87102; 87116; 87176; 87205; 87206; A4216; J2405

== ENCOUNTER 2024-05-23 14:15 | Outpatient (RCR) | payer MEDICAID, SELFPAY ==
[2024-05-01 00:44] VITALS: BP 130/62; PULSE 71; RESP 18; TEMP 36.5; BMI 36.9
[2024-05-09 14:08] VITALS: BP 114/70; PULSE 65; RESP 18; TEMP 36.4; BMI 36.9
--- NOTE | 2024-05-09 14:39 | PN_ITS ---
Progress Note Some post-op pain, but no numbness. Has been cutting back on cigarettes. Physical Exam Narrative Flap over long finger MCP volar surface is warm and viable, well perfused. Integra appears to be stuck down in webspace between index and long finger. No exposed critical structures. Assessment & Plan Assessment/Plan (1) Open wound, hand: QUALIFIERS: Encounter type: subsequent encounter Laterality: r ight PLAN: Plan Expected course Continue splinting with plaster splint. NGTD on cultures from OR (finish Keflex) F/u later this week in clinic on Thursday, 13 May 2024. Also did 0.25% Bupivucaine block (local) and refilled pain medication Procedures Integumentary [id number]: [id number] Global Visit
--- NOTE | 2024-05-10 14:55 | WC ---
PHOTO 05/09/24 RIGHT THIRD FINGER
--- NOTE | 2024-05-10 14:56 | WC ---
PHOTO 05/09/24 RIGHT PALM
[2024-05-23 14:19] VITALS: BP 126/51; PULSE 70; RESP 18; TEMP 36.3; BMI 36.9
--- NOTE | 2024-05-23 17:58 | PCM.PN.BLA ---
Progress Note Here for follow up and reports some swelling of his small finger and long finger on the right hand. No drainage yet, but pain. Continues to smoke. Physical Exam Narrative R Upper Extremity Inspection: Flap warm and viable, healed incisions. Integra has taken. 1 x 1 cm abscess over P2 of right long finger. Small abscess on volar surface of P1 on the small finger on radial side. Palpation: TTP over these areas of swelling/fluid. Consistent with abscess/surrounding cellulitis. No TTP in the palm. No TTP with excursion of any of the flexor tendons (no signs of flexor teno). Motor: Able to bend and extend all MP, PIP, and DIP joints. Sensory: Intact to light touch on the radial and ulnar borders. Vascular: Finger tips are warm and well perfused with <2 second capillary refill. Assessment & Plan Assessment/Plan (1) Abscess of hand, right: PLAN: Drained in clinic today at wound care center. Verbal consent obtained and hand prepped in sterile fashion. 3 cc of 1% lidocaine used. 15 blade used to cut over small finger and long finger areas of fluctuance with spread of hemostat to remove purulence. Cultured and washed out. Packed with iodoform gauze. Once long finger skin had been opened and purulence removed, there was a clear open wound down to tendon at the base (no viable soft tissue/subcutaneous tissue at the wound base, just straight to tendon). I'm concerned that the infection is coming from deep along the flexor tendon and may be related to the acid-fast positive cultures taken at the last surgery. Infectious Disease (ID) is involved (I contacted them from clinic today). Patient is going to the emergency department to be evaluated and admitted for cellulitis of the right upper extremity. [facility] can consult. For now, continued three times per day dial soap soaks and packing of the wounds. Recommend hand xray as well (could be osteomyelitis coming from previous septic PIP joint?). Agree with broad-spectrum antibiotics and ID involvement. (2) Cellulitis of hand, right: Procedures Integumentary [id number]: [id number] Drainage of skin abscess
== END 2024-05-31 23:59 | disposition home or self-care (01) ==
LOC: WC 14:15
PROVIDERS: PCP Nurse Practitioner Family; Referring Provider Surgery Plastic and Reconstructive Surgery; Visit Provider Surgery Plastic and Reconstructive Surgery
DX: L03.113 Cellulitis of right upper limb (principal); S61.401D Unspecified open wound of right hand, subsequent encounter; L02.511 Cutaneous abscess of right hand; F17.200 Nicotine dependence, unspecified, uncomplicated
CPT/HCPCS: 10061; 87015; 87070; 87075; 87116; 87205; 87206; 99213; G0463

== ENCOUNTER 2024-05-23 18:32 | Inpatient (IN) | payer MEDICAID, SELFPAY ==
[2024-05-23] VITALS (8 sets, daily range): BP systolic 106–138; BP diastolic 53–77; PULSE 64–71; RESP 16–18; TEMP 35.8–36.8; O2SAT 92–95; BMI 36.7; BMI 36.3
--- NOTE | 2024-05-23 20:20 | RAD_ITS ---
INDICATION: wound EXAMINATION/TECHNIQUE: X-RAY - RIGHT XR Hand Min 3 Views COMPARISON: None. FINDINGS: No acute fracture or malalignment. No blastic or lytic lesions. No degenerative changes are seen. Soft tissue swelling of the third and fifth digits with mild subcutaneous air in the third digit. RAD/Hand Min 3 Views IMPRESSION: Soft tissue swelling of the third and fifth digits with mild subcutaneous air in the third digit. No findings to suggest acute osteomyelitis. Electronically Signed: Deonte Davenport MD at 20:52 EST ,
--- NOTE | 2024-05-23 20:55 | EKG12_ITS ---
Test Reason : DYSRHYTHMIA Blood Pressure : */* mmHG Vent. Rate : 67 BPM Atrial Rate : 67 BPM P-R Int : 132 ms QRS Dur : 144 ms QT Int : 450 ms P-R-T Axes : 18 36 39 degrees QTcB Int : 475 ms Normal sinus rhythm Right bundle branch block Abnormal ECG Confirmed by DUSTIN DEE, BRIDGET ([id number]), make up editor NIKI DE LA O ([id number]) on 05/26/2024 2:25:50 PM Referred By: Confirmed By: BRIDGET CHAN MD
[2024-05-23 20:57] LABS: Absolute Lymphocyte Count 3.05 X10^3/uL (0.83-4.51); Absolute Neutrophil Count 2.9 X10^3/uL (2.0-7.7); Basophil# 0.03 X10^3/uL; Basophil% 0.4 % (0-1); Eosinophil# 0.24 X10^3/uL; Eosinophils% 3.5 % (0-5); Hematocrit 45.6 % (40-54); Hemoglobin 16.1 g/dL (13.0-16.5); Lymphocyte # 3.05 X10^3/ul (0.83-4.51); Lymphocyte % 44.6 % (19-41); Mean Corp Hgb Conc 35.3 g/dL (32-36); Mean Corpuscular Hgb 34.8 pg (27.0-32.0); Mean Corpuscular Volume 98.7 fL (80-94); Mean Platelet Vol. 10.5 fl (6.2-12.0); Monocyte# 0.57 X10^3/uL; Monocyte% 8.3 % (0-10); NRBC Flagged by Analyzer 0 % (0-5); Neutrophil # 2.94 X10^3/uL (2.7-7.7); Neutrophil % 43.1 % (47-70); Platelet Count 164 K/mm3 (150-450); RBC Distribution Width SD 47.3 fl (35.1-43.9); Red Blood Count 4.62 M/mm3 (4.6-6.2); White Blood Count 6.8 K/mm3 (4.4-11.0)
[2024-05-23 21:01] LABS: Erythrocyte Sedimentation Rate < 1 mm/hr (0-20)
[2024-05-23] MEDS: oxyCODONE 5 MG Tablet PO (21:01)
[2024-05-23 21:17] LABS: Troponin-I HS 4 pg/mL (3.0-78.0)
[2024-05-23] MEDS: Ipratropium/Albuterol Sulfate 3 ML AMPUL.NEB INHALATION (21:17)
[2024-05-23 21:31] LABS: ALB/GLOB Ratio 1.4 RATIO (0.9-2.4); AST(SGOT) 33 U/L (15-37); Alanine Aminotransfer ALT/SGPT 49 U/L (16-61); Albumin, Serum 3.9 g/dL (3.2-5.0); Alkaline Phosphatase 86 U/L (45-117); Anion Gap 6 (5-15); BUN 15 mg/dL (7-18); BUN/Creat Ratio 19.6 RATIO (10-20); CRP < 2.90 mg/L (0.0-3.0); Calcium,Total 8.9 mg/dL (8.5-10.1); Chloride 108 mmol/L (98-107); Creatinine, Serum 0.76 mg/dL (0.70-1.30); EST Glomerular Filtration Rate 111 mL/min (>60); Est Glom Filt Rate - Afr Amer 135 mL/min (>60); Estimated Creatinine Clearance 132.87 ml/min; Globulin 2.8 g/dL (2.2-4.2); Glucose 91 mg/dL (74-106); Potassium 3.8 mmol/L (3.5-5.1); Protein, Total 6.7 g/dL (6.4-8.2); Sodium Level 139 mmol/L (136-145)
--- NOTE | 2024-05-23 21:35 | PCM.HP.STD ---
[facility] - General General Date of Admission: 05/23/24 Date of Service: 05/23/24 Chief Complaint: Abscess/Swelling of the 5th Digit of the Right Hand. HPI Narrative ONELIA REED, is a 58 M with a past medical history of essential hypertension; on losartan on furosemide, hyperlipidemia; on rosuvastatin, hypothyroidism; on levothyroxine, obesity; with BMI of 36.8 this admission with CANDELARIA; on BiPAP, DM-2; of unknown control on metformin, jardiance and dulaglutide, diabetic neuropathy; on gabapentin, history of ongoing tobacco abuse; with subsequent COPD, history of CAD; s/p stent (2015) on ISMO and prn SL NTG, history of TIA/CVA; on BASA and clopidogrel, history of seizures, RLS; on mirtazipine, history of depression; on duloxetine, history of GI bleed, GERD; on omeprazole, history of laparoscopic cholecystectomy, history of umbilical hernia; s/p repair, history of CTS of the Right hand; s/p release. OA; primarily of the Right knee along with back pain and recently diagnosed abscess of the Right hand with flexor tenosynovitis of the 3rd digit; s/p surgical I&D by Dr. Edwards on April 27, 2024 followed by a second I&D by Dr. Edwards on May 05, 2024 on combination Keflex and Doxycycline since that time who presents to [facility] ER complaining of a new abscess and swelling of the 5th digit of his Right hand with cultures positive for AFB. He denies associated fever, chills, nausea, vomiting, diarrhea, constipation, chest pain or SOB. In the ER he was diagnosed with Cellulitis with Abscess of the 3rd and 5th digits of the Right hand that failed outpatient antibiotic treatment with Dr. Edwards requesting hospitalist service admit this patient and with Dr. Levin of infectious disease recommending empiric IV Vancomycin and IV Zosyn at this time and he was then admitted to the general medical floor for ongoing care for a stay that is expected to extend beyond 2 midnights. [facility] Medical History (Updated 05/24/24 @ 07:[address] Onelia Mobley, DO) Flexor tenosynovitis of finger Open wound, hand Infected hand Insulin dependent diabetes mellitus Arthritis Kidney stone TIA (transient ischemic attack) Seizures Gastric reflux Hypertension History of CVA in adulthood Antiplatelet or antithrombotic long-term use Wears glasses No natural teeth Diabetes Thyroid disease High cholesterol Blackout History of GI bleed Smoker BiPAP (biphasic positive airway pressure) dependence Sleep apnea Shortness of breath on exertion Chronic cough History of edema Leg cramps History of stress test Cardiology follow-up encounter Elevated LFTs Back pain Dorsalgia of thoracolumbar region Patellofemoral arthritis of right knee Bilateral knee pain Situational syncope Chest pain, unspecified Type 2 diabetes mellitus Essential hypertension Pneumonia due to other streptococci Atherosclerosis of coronary artery of [place] heart without angina pectoris Right bundle-branch block Gastroesophageal reflux disease Hypertriglyceridemia Obstructive sleep apnea Body mass index (BMI) 35 or more Tobacco abuse COPD (chronic obstructive pulmonary disease) MASON (dyspnea on exertion) Morbid obesity due to excess calories Localized edema Long-term use of high-risk medication Hyperlipidemia Difficulty swallowing Stage 2 moderate COPD by GOLD classification Sinus drainage Home Medications ?Medication ?Instructions ?Recorded ?Last Taken ?Type albuterol sulfate 90 mcg/actuation 6.7 g inhalation PRN PRN Wheezing 12/06/14 05/04/24 History aerosol inhaler ergocalciferol (vitamin D2) 1,250 50,000 unit PO Q7D SUPPLEMENT 12/06/14 05/04/24 History mcg (50,000 unit) capsule fluticasone propionate 50 1 spray NASAL DAILY ALLERGIES 05/05/16 04/10/24 History mcg/actuation nasal spray,suspension aspirin 81 mg tablet,delayed 81 mg PO DAILY HEART 08/11/19 05/04/24 History release duloxetine 60 mg capsule,delayed 60 mg PO DAILY MOOD 08/11/19 05/04/24 History release levothyroxine 50 mcg tablet 75 mcg PO DAILY THYROID 08/11/19 05/05/24 History losartan 50 mg tablet 25 mg PO QDAY BLOOD PRESSURE 08/11/19 05/04/24 History mirtazapine 15 mg tablet 45 mg PO QHS SLEEP AND RLS 08/11/19 05/04/24 History multivitamin 1 cap PO DAILY SUPPLEMENT 08/11/19 05/04/24 History nitroglycerin 0.4 mg sublingual 0.4 mg sublingual ONCE PRN chest 08/11/19 Unknown History tablet (Nitrostat) pain budesonide-formoterol HFA 160 2 puff inhalation BID COPD #10.2 12/05/19 05/04/24 Rx mcg-4.5 mcg/actuation aerosol grams inhaler clopidogrel 75 mg tablet 75 mg PO QDAY BLOOD THINNER #90 12/29/19 05/04/24 Rx tabs furosemide 40 mg tablet (Lasix) 60 mg PO DAILY WATER PILL 11/15/20 05/04/24 History metformin 1,000 mg tablet 1,000 mg PO BID DIABETES 11/15/20 05/04/24 History isosorbide mononitrate 60 mg 30 mg (1/2 x 60 mg) PO BID HEART 12/03/21 05/05/24 Rx tablet,extended release 24 hr #90 tabs omeprazole 40 mg capsule,delayed 40 mg PO DAILY GERD 1 month #30 06/05/23 05/05/24 Rx release caps rosuvastatin 20 mg tablet 20 mg PO QHS CHOLESTEROL 1 month 06/05/23 05/04/24 Rx #30 tabs empagliflozin 25 mg tablet 25 mg PO DAILY DAIBETES #30 tabs 11/24/23 05/04/24 Rx (Jardiance) fluticasone fur. 100 mcg-umeclid 1 ea inhalation DAILY copd 03/07/24 05/05/24 History 62.5 mcg-vilant 25 mcg inhalat.powder (Trelegy Ellipta) gabapentin 800 mg tablet 800 mg PO TID pain 03/07/24 05/04/24 History dulaglutide 1.5 mg/0.5 mL 1.5 mg subcut MENON DIABETES 03/22/24 04/24/24 History subcutaneous pen injector (Trulicity) cephalexin 500 mg capsule 500 mg PO Q8H 7 days #21 caps 05/05/24 Unknown Rx cefadroxil 500 mg capsule 500 mg PO BID 10 days #20 caps 05/19/24 Unknown Rx doxycycline monohydrate 100 mg 100 mg PO BID 10 days #20 caps 05/19/24 Unknown Rx capsule Allergy/AdvReac Type Severity Reaction Status Date / Time No Known Allergies Allergy Verified 05/19/24 09:02 Family History Father CVA (cerebral vascular accident) Brother CAD (coronary artery disease) Diabetes Mother COPD (chronic obstructive pulmonary disease) Sarcoidosis Surgical History History of hand surgery History of cardiac catheterization S/P laparoscopic cholecystectomy H/O umbilical hernia repair History of coronary artery stent placement (~03/25/16) History of carpal tunnel surgery of right wrist History of left heart catheterization Social History household members: spouse current occupational status: disabled Smoking Status: Light Smoker (<10/day) Tobacco: How many years used: 30 second hand exposure: Yes alcohol intake: never substance use type: does not use caffeine: Yes Type: coffee Number of servings: 2 what type of physical activity do you participate in: none ROS ROS Narrative Review of Systems: Constitutional: Patient admits to sweats but he denies fever. Eyes: Patient denies changes in vision or discharge from eyes. ENT: Patient denies runny nose, sore throat or ear pain. Resp: Patient admits to intermittent SOB and cough. CV: Patient admits to mild intermittent chest pain but he denies palpitations or heart racing. GI: Patient denies nausea, vomiting, diarrhea or constipation. : Patient denies dysuria or hematuria. MSK: Patient admits to severe Right hand pain made worse with movement and palpation. Skin: Patient has an abscess with open wounds at the base of the 3rd and 5th digits of the Right hand. Psych: Patient denies symptoms of uncontrolled depression or anxiety. Neuro: Patient denies headache, paresthesias or focal neurologic deficits. Allergy: Patient denies lip swelling, tongue swelling or urticaria. Hematology: Patient denies easy bleeding or easy bruisability. Endocrinology: Patient denies polyuria, polydipsia or polyphagia. 14 point ROS otherwise negative except for positives noted above in HPI. Vital Signs Vital Signs Vital Signs: 05/23/24 18:33 05/23/24 19:49 05/23/24 20:00 Temperature 96.5 F L 98.3 F 98.3 F Temperature Source Temporal Oral Oral Pulse Rate 71 64 65 Respiratory Rate 16 18 18 Blood Pressure 138/77 H 119/64 110/64 Blood Pressure Mean 97 82 79 Pulse Ox 95 94 94 Oxygen Delivery Method Room Air Room Air Room Air 05/23/24 21:00 Temperature 98.3 F Temperature Source Oral Pulse Rate 68 Respiratory Rate 18 Blood Pressure 108/62 Blood Pressure Mean 77 Pulse Ox 95 Oxygen Delivery Method Room Air Weight Weight: 249 lb Body Mass Index (BMI) 36.7 Physical Exam Const alert, oriented x3 and no apparent distress Constitutional Narrative: Obese. General Appearance: cooperative HEENT normocephalic, head/scalp atraumatic, hearing grossly normal bilaterally and moist oral mucous membranes Eyes PERRL and EOMs intact bilaterally Neck no lymphadenopathy and supple Resp normal respiratory effort, no retractions, no use of accessory muscles and clear to auscultation bilaterally Cardio regular rate and regular rhythm GI normal to inspection, nondistended, normoactive bowel sounds, soft to palpation, non-tender and non-distended GI Narrative: Obese. Extremity Extremity Narrative: Right hand wound with abscesses at the base of the 3rd and 5th digits with surrounding erythema and TTP. Skin Skin Narrative: Right hand wound with abscesses at the base of the 3rd and 5th digits with surrounding erythema and TTP. Neuro oriented x3, CN's II-XII intact bilaterally, moves all extremities and no focal motor deficits Sensorium / Orientation: awake, alert, oriented to person, oriented to place and oriented to time Speech: speech normal Psych affect normal Results Medical Records Data Attestation: I reviewed the patient's medical records Lab / Micro Data Attestation: I reviewed the patient's lab results. 05/24/24 05:38 05/24/24 05:38 Labs: Laboratory Results - last 24 hr 05/23/24 20:35: WBC 6.8, RBC 4.62, Hgb 16.1, Hct 45.6, MCV 98.7 H, MCH 34.8 H, MCHC 35.3, RDW Std Deviation 47.3 H, RDW Coeff of Autumn 13.0, Plt Count 164, MPV 10.5, Immature Gran % (Auto) 0.100, Neut % (Auto) 43.1 L, Lymph % (Auto) 44.6 H, Kend[place] % (Auto) 8.3, Eos % (Auto) 3.5, Baso % (Auto) 0.4, Absolute Neuts (auto) 2.9, Absolute Lymphs (auto) 3.05, Nucleated RBC % 0, ESR < 1, Sodium 139, Potassium 3.8, Chloride 108 H, Carbon Dioxide 26.0, Anion Gap 6, BUN 15, Creatinine 0.76, Estim Creat Clear Calc 132.87, Est GFR (MDRD) Af Amer 135, Est GFR (MDRD) Non-Af 111, BUN/Creatinine Ratio 19.6, Glucose 91, Calcium 8.9, Total Bilirubin 0.60, AST 33, ALT 49, Alkaline Phosphatase 86, Troponin I High Sens 4, C-React Prot Ext Range < 2.90, Total Protein 6.7, Albumin 3.9, Globulin 2.8, Albumin/Globulin Ratio 1.4 Imaging Radiology Impression Hand X-Ray 05/23/24 20:20 IMPRESSION: Soft tissue swelling of the third and fifth digits with mild subcutaneous air in the third digit. No findings to suggest acute osteomyelitis. Electronically Signed: Deonte Davenport MD at 20:52 EST , Assessment & Plan Assessment/Plan (1) Cellulitis of hand, right: (2) Abscess of hand, right: (3) Flexor tenosynovitis of finger: (4) Open wound, hand: QUALIFIERS: Encounter type: subsequent encounter Laterality: right Open wound type: unspecified Foreign body presence: without foreign body Qualified Code(s): S61.401D - Unspecified open wound of right hand, subsequent encounter (5) Type II diabetes mellitus: QUALIFIERS: Diabetes mellitus prison insulin use: with prison use Diabetes mellitus complication status: with neurologic complications Diabetes mellitus complication detail: with polyneuropathy Qualified Code(s): E11.42 - Type 2 diabetes mellitus with diabetic polyneuropathy; Z79.4 - alf (current) use of insulin (6) Tobacco abuse: (7) Obesity (BMI 30-39.9): (8) Obstructive sleep apnea: PLAN: Plan 1. Cellulitis with Abscess of the 3rd and 5th digits of the Right hand that failed outpatient antibiotic treatment with Dr. Edwards requesting hospitalist service admit this patient and with Dr. Levin of infectious disease recommending empiric IV Vancomycin and IV Zosyn at this time with cultures positive for AFB - Admit to general medical floor. Continue broad-spectrum antibiotics and avoid rifampin at this time as per ID recommendations. Give Tylenol prn for [id number] (level 1-5/10) pain or fever. Continue prn oxycodone for severe (level 6-10/10) pain. Finally, consultations from Dr. Edwards and Dr. Levin are pending in the AM with help appreciated in advance. 2. Recently diagnosed abscess of the Right hand with flexor tenosynovitis of the 3rd digit; s/p surgical I&D by Dr. Edwards on April 27, 2024 followed by a second I&D by Dr. Edwards on May 05, 2024 on combination Keflex and Doxycycline since that time complicating #1 - Noted. 3. DM-2; of unknown control on metformin, jardiance and dulaglutide plus diabetic neuropathy; on gabapentin compounding #1 & #2 - Keep NPO for now with impending I&D. Check FSBS q. 6 hours and give lowest intensity SSI. Check HgbA1c to objectively assess quality of diabetic control. 4. Tobacco Abuse; in the setting of known COPD aggravating #1 - #3 - Tobacco Cessation will be strongly encouraged with Nicotine patch offered to control cravings. It is also suspected that his continued smoking is a significant contributing factor to his poor wound healing and ongoing infections. Patient has no signs of acute flare of COPD at this time. Continue prn nebulizers. 5. Obesity; with BMI of 36.8 this admission and CANDELARIA; on BiPAP adding to the medical complexity of #1 - #4 - Weight loss will be recommended. Check TSH. This complicates his case and may hamper recovery. 6. Essential hypertension; on losartan on furosemide - Maintain home regimen. 7. Hyperlipidemia; on rosuvastatin - Continue statin. 8. Hypothyroidism; on levothyroxine - Resume levothyroxine as previous and check TSH. 9. History of CAD; s/p stent (2015) on ISMO and prn SL NTG - Home medications to continue as before. 10. History of TIA/CVA; on BASA and clopidogrel - Hold BASA and clopidogrel with impending I&D and then restart when deemed safe to do so by general surgeon. 11. History of seizures - Noted. 12. RLS; on mirtazapine - Continue mirtazapine as previous. 13. History of depression; on duloxetine - Restart duloxetine. 14. History of GI bleed - Noted with no signs of recurrence. 15. GERD; on omeprazole - Continue PPI. 16. History of laparoscopic cholecystectomy - Noted. 17. History of umbilical hernia; s/p repair - Noted. 18. History of CTS of the Right hand; s/p release - Noted. 19. OA; primarily of the Right knee along with back pain - Give Tylenol prn. 20. DVT prophylaxis - Lovenox 40 mg sq daily plus SCD's. Total time: Approximately (but not less than) 75 minutes. Charges/Coding Visit Charges Inpatient E&M: 78015 Init Hosp L3
[2024-05-23] MEDS: Piperacil/Tazobactam 3.375 GM in 0.9% Normal Saline (50mL MB+) 50 ML IV (21:53)
[2024-05-23] MEDS: Vancomycin HCl 1,750 MG in 0.9% Normal Saline (500mL Bag) 500 ML 250 MG IV (22:42)
--- NOTE | 2024-05-23 22:44 | EX.ED.UPPERE ---
HPI History of Present Illness Chief Complaint: Wound Informant: patient Narrative Narrative: Patient is a 58-year-old male with history of COPD, coronary artery disease, diabetes mellitus and flexor tenosynovitis/septic arthritis of the right third finger. He has undergone multiple surgeries with plastics (Dr. Edwards) and follows up with wound care. He does continue to smoke. He is presenting today at the request of Dr. Edwards for concern of new abscess in his fifth finger, recurrent abscess around the tendon of the third finger and a wound culture that grew acid-fast bacilli. Patient is a new trauma. He is currently on doxycycline and Keflex with his last dose this morning. Home review of systems notes he sometimes does get night sweats. Denies any fevers. States that he intermittently gets chest pain has been on for weeks. Denies any aggravating or alleviating factors. Does have intermittent shortness of breath denies any change in his respiratory status. Patient had I&D with packing and repeat cultures of the right proximal phalanges of the third and fifth fingers prior to coming to the emergency room performed by Dr. Edwards. [facility] Medical History Open wound, hand Infected hand Insulin dependent diabetes mellitus Arthritis Kidney stone TIA (transient ischemic attack) Seizures Gastric reflux Hypertension History of CVA in adulthood Antiplatelet or antithrombotic long-term use Flexor tenosynovitis of finger Wears glasses No natural teeth Diabetes Thyroid disease High cholesterol Blackout History of GI bleed Smoker BiPAP (biphasic positive airway pressure) dependence Sleep apnea Shortness of breath on exertion Chronic cough History of edema Leg cramps History of stress test Cardiology follow-up encounter Elevated LFTs Back pain Dorsalgia of thoracolumbar region Patellofemoral arthritis of right knee Bilateral knee pain Situational syncope Chest pain, unspecified Type 2 diabetes mellitus Essential hypertension Pneumonia due to other streptococci Atherosclerosis of coronary artery of [place] heart without angina pectoris Right bundle-branch block Gastroesophageal reflux disease Hypertriglyceridemia Obstructive sleep apnea Body mass index (BMI) 35 or more Tobacco abuse COPD (chronic obstructive pulmonary disease) MASON (dyspnea on exertion) Morbid obesity due to excess calories Localized edema Long-term use of high-risk medication Hyperlipidemia Difficulty swallowing Stage 2 moderate COPD by GOLD classification Sinus drainage Home Medications ?Medication ?Instructions ?Recorded ?Last Taken ?Type albuterol sulfate 90 mcg/actuation 6.7 g inhalation PRN PRN Wheezing 12/06/14 05/04/24 History aerosol inhaler ergocalciferol (vitamin D2) 1,250 50,000 unit PO Q7D SUPPLEMENT 12/06/14 05/04/24 History mcg (50,000 unit) capsule fluticasone propionate 50 1 spray NASAL DAILY ALLERGIES 05/05/16 04/10/24 History mcg/actuation nasal spray,suspension aspirin 81 mg tablet,delayed 81 mg PO DAILY HEART 08/11/19 05/04/24 History release duloxetine 60 mg capsule,delayed 60 mg PO DAILY MOOD 08/11/19 05/04/24 History release levothyroxine 50 mcg tablet 75 mcg PO DAILY THYROID 08/11/19 05/05/24 History losartan 50 mg tablet 25 mg PO QDAY BLOOD PRESSURE 08/11/19 05/04/24 History mirtazapine 15 mg tablet 45 mg PO QHS SLEEP AND RLS 08/11/19 05/04/24 History multivitamin 1 cap PO DAILY SUPPLEMENT 08/11/19 05/04/24 History nitroglycerin 0.4 mg sublingual 0.4 mg sublingual ONCE PRN chest 08/11/19 Unknown History tablet (Nitrostat) pain budesonide-formoterol HFA 160 2 puff inhalation BID COPD #10.2 12/05/19 05/04/24 Rx mcg-4.5 mcg/actuation aerosol grams inhaler clopidogrel 75 mg tablet 75 mg PO QDAY BLOOD THINNER #90 12/29/19 05/04/24 Rx tabs furosemide 40 mg tablet (Lasix) 60 mg PO DAILY WATER PILL 11/15/20 05/04/24 History metformin 1,000 mg tablet 1,000 mg PO BID DIABETES 11/15/20 05/04/24 History isosorbide mononitrate 60 mg 30 mg (1/2 x 60 mg) PO BID HEART 12/03/21 05/05/24 Rx tablet,extended release 24 hr #90 tabs omeprazole 40 mg capsule,delayed 40 mg PO DAILY GERD 1 month #30 06/05/23 05/05/24 Rx release caps rosuvastatin 20 mg tablet 20 mg PO QHS CHOLESTEROL 1 month 06/05/23 05/04/24 Rx #30 tabs empagliflozin 25 mg tablet 25 mg PO DAILY DAIBETES #30 tabs 11/24/23 05/04/24 Rx (Jardiance) fluticasone fur. 100 mcg-umeclid 1 ea inhalation DAILY copd 03/07/24 05/05/24 History 62.5 mcg-vilant 25 mcg inhalat.powder (Trelegy Ellipta) gabapentin 800 mg tablet 800 mg PO TID pain 03/07/24 05/04/24 History dulaglutide 1.5 mg/0.5 mL 1.5 mg subcut MENON DIABETES 03/22/24 04/24/24 History subcutaneous pen injector (Trulicity) cephalexin 500 mg capsule 500 mg PO Q8H 7 days #21 caps 05/05/24 Unknown Rx cefadroxil 500 mg capsule 500 mg PO BID 10 days #20 caps 05/19/24 Unknown Rx doxycycline monohydrate 100 mg 100 mg PO BID 10 days #20 caps 05/19/24 Unknown Rx capsule Allergy/AdvReac Type Severity Reaction Status Date / Time No Known Allergies Allergy Verified 05/19/24 09:02 Family History Father CVA (cerebral vascular accident) Brother CAD (coronary artery disease) Diabetes Mother COPD (chronic obstructive pulmonary disease) Sarcoidosis Surgical History History of hand surgery History of cardiac catheterization S/P laparoscopic cholecystectomy H/O umbilical hernia repair History of coronary artery stent placement (~03/25/16) History of carpal tunnel surgery of right wrist History of left heart catheterization Social History household members: spouse current occupational status: disabled Smoking Status: Light Smoker (<10/day) Tobacco: How many years used: 30 second hand exposure: Yes alcohol intake: never substance use type: does not use caffeine: Yes Type: coffee Number of servings: 2 what type of physical activity do you participate in: none ROS ROS ED Constitutional Constitutional ED: Reports sweats; Denies chills or fever(s) Cardiovascular Cardiovascular: Reports chest pain Respiratory/Chest Respiratory/Chest: Reports cough and dyspnea Gastrointestinal Gastrointestinal: Denies nausea or vomiting Musculoskeletal Musculoskeletal: Reports other Details: Right hand pain Integumentary Reports abscess Neurologic Neurologic: Denies paresthesias or weakness Hematologic/Lymphatic Hematologic/Lymphatic: Denies easy bleeding or easy bruising EXAM Physical Exam Const Vital Signs: 05/23/24 18:33 05/23/24 19:49 05/23/24 20:00 Temperature 96.5 F L 98.3 F 98.3 F Temperature Source Temporal Oral Oral Pulse Rate 71 64 65 Respiratory Rate 16 18 18 Respiratory Pattern Blood Pressure 138/77 H 119/64 110/64 Blood Pressure Mean 97 82 79 Pulse Ox 95 94 94 Oxygen Delivery Method Room Air Room Air Room Air 05/23/24 21:00 05/23/24 21:17 05/23/24 21:37 Temperature 98.3 F 98.3 F Temperature Source Oral Pulse Rate 68 69 65 Respiratory Rate 18 18 18 Respiratory Pattern Normal Blood Pressure 108/62 106/53 L Blood Pressure Mean 77 70 Pulse Ox 95 93 Oxygen Delivery Method Room Air Positive well nourished and well developed General Appearance ED: well developed and NAD HEENT Reports moist mucous membranes Neck full ROM Resp normal respiratory effort Resp Narrative: Coarse breath sounds with scattered wheezing present Cardio regular rate and regular rhythm GI non-tender and non-distended Extremity Extremity Narrative: 2+ radial pulses present. Patient has more chronic appearing deformity and swelling to the right third finger. He has localized swelling and tenderness to the right fifth finger. There are incisions of the palmar aspect of the proximal phalanges of the third and fifth finger with packing in place. There is some associated erythema to the fingers. No active drainage at this time. He does have some decreased range of motion of these fingers. No pinpoint bony tenderness. No other deformities or injuries appreciated. Neuro oriented x3, moves all extremities and no focal motor deficits Sensory Exam: sensory level loss detected Psych mental status grossly normal Skin Skin Narrative: Surgical incision with packing on the plantar aspect of the proximal third and fifth right fingers. MDM MDM MDM Narrative Medical decision making narrative: Patient is evaluated for recurrent abscess/infection around the tendon sheath for the right third finger but also new abscess and infection with overlying cellulitis to the right fifth finger. Differential includes abscess, flexor tenosynovitis, cellulitis, osteomyelitis. Workup including CBC, CMP, CRP, ESR and x-ray of the hands largely negative. He does not have systemic symptoms. EKG does not show any acute ischemic change and is high since he troponin is 4. I do not think this intermittent chest pain requires admission or further inpatient workup. Lower suspicion for endocarditis without leukocytosis or more infectious systemic symptoms. Given his recurrent infections and positive of acid-fast bacilli smear earlier this month did speak with Dr. Levin who would hold off starting any specific antibiotics for this and cover for broad-spectrum bacteria at this time with vancomycin and Zosyn. This is relayed to hospitalist, Dr. Monzon. Patient is agreeable to admission. Initially given oxycodone for pain with and has further pain so is given dose of IM morphine. Lab Data Attestation: I reviewed the patient's lab results. Labs: Laboratory Results - last 24 hr 05/23/24 20:35 WBC 6.8 RBC 4.62 Hgb 16.1 Hct 45.6 MCV 98.7 H MCH 34.8 H MCHC 35.3 RDW Std Deviation 47.3 H RDW Coeff of Autumn 13.0 Plt Count 164 MPV 10.5 Immature Gran % (Auto) 0.100 Neut % (Auto) 43.1 L Lymph % (Auto) 44.6 H [place] % (Auto) 8.3 Eos % (Auto) 3.5 Baso % (Auto) 0.4 Absolute Neuts (auto) 2.9 Absolute Lymphs (auto) 3.05 Nucleated RBC % 0 ESR < 1 Sodium 139 Potassium 3.8 Chloride 108 H Carbon Dioxide 26.0 Anion Gap 6 BUN 15 Creatinine 0.76 Estim Creat Clear Calc 132.87 Est GFR (MDRD) Af Amer 135 Est GFR (MDRD) Non-Af 111 BUN/Creatinine Ratio 19.6 Glucose 91 Calcium 8.9 Total Bilirubin 0.60 AST 33 ALT 49 Alkaline Phosphatase 86 Troponin I High Sens 4 C-React Prot Ext Range < 2.90 Total Protein 6.7 Albumin 3.9 Globulin 2.8 Albumin/Globulin Ratio 1.4 Radiography Diagnostic Testing: Clinical Impression(s) from Imaging Studies Hand X-Ray 05/23/24 20:20 IMPRESSION: Soft tissue swelling of the third and fifth digits with mild subcutaneous air in the third digit. No findings to suggest acute osteomyelitis. Electronically Signed: Deonte Davenport MD at 20:52 EST , Rhythm Strip Rhythm Strip: Sinus Rhythm Rate: 67 Ectopy: None EKG Initial EKG: Attestation: I personally reviewed and interpreted this EKG as follows: Interpretation: Sinus Rhythm Comments: Normal sinus rhythm rate of 67 bpm Normal axis Right bundle branch block Normal ST segments Management Discussion w/another healthcare provider: Hospitalist and Assistant Cook (Plastics, infectious disease) Discharge Plan Dx/Rx/DC Orders Clinical Impression: Cellulitis of hand, right, Open wound, hand, Abscess of hand, right, Type 2 diabetes mellitus Disposition Disposition: Acute Care Hospital [facility] Discharge Date/Time: 05/23/24 22:19
[2024-05-23] MEDS: morphine 10 MG/ML Syringe 6 MG IV (23:20)
[2024-05-23] MEDS: 0.9% Saline Lock 10 ML Syringe IV (23:20)
[2024-05-23] MEDS: Atorvastatin Calcium 40 MG Tablet PO (23:27)
[2024-05-23] MEDS: Mirtazapine 15 MG Tablet 45 MG PO (23:27)
[2024-05-23] MEDS: Isosorbide Mononitrate 30 MG Tablet PO (23:27)
[2024-05-23] MEDS: Gabapentin 800 MG Tablet PO (23:27)
--- NOTE | 2024-05-23 23:27 | PCM.RX.CS ---
Consult Antibiotic Management Pharmacy has been consulted to manage selected antibiotic: Vancomycin Type of Intervention Type of Consult: New start Labs Labs: Sodium 139 mmol/L (136-145) 05/23/24 20:35 Potassium 3.8 mmol/L (3.5-5.1) 05/23/24 20:35 Chloride 108 mmol/L (98-107) H 05/23/24 20:35 Carbon Dioxide 26.0 mmol/L (21.0-32.0) 05/23/24 20:35 Anion Gap 6 (5-15) 05/23/24 20:35 BUN 15 mg/dL (7-18) 05/23/24 20:35 Creatinine 0.76 mg/dL (0.70-1.30) 05/23/24 20:35 Est GFR (MDRD) Af Amer 135 mL/min (>60) 05/23/24 20:35 Est GFR (MDRD) Non-Af 111 mL/min (>60) 05/23/24 20:35 BUN/Creatinine Ratio 19.6 RATIO (10-20) 05/23/24 20:35 Glucose 91 mg/dL (74-106) 05/23/24 20:35 Dosing Weight Weight used for dosin.5 kg Estimated Creatinine Clearance Estimated Creatinine Clearance: 133 Goal Trough Goal Trough: 15-20 mcg/mL Pharmacy Plan for Drug Dosing Pharmacy Plan for Drug Dosing: Pharmacy Service will continue to monitor and adjust dosing as required. Follow-Up Labs Follow-Up Labs: Trough: Vancomycin Date/Time Labs Ordered Labs to be done on [date and time ordered]: 05/24/24 @2200
[2024-05-23] MEDS: Lactobacillis Acidophilus 1 CAP PO (23:28)
[2024-05-24] VITALS (8 sets, daily range): BP systolic 110–120; BP diastolic 57–69; PULSE 55–102; RESP 16–20; TEMP 36.4–36.8; O2SAT 90–97; BMI 36.3
[2024-05-24] MEDS: 0.9% Normal Saline (1000mL) 1,000 ML 100 ML IV (00:03)
[2024-05-24 00:07] LABS: Bedside Glucose 101 mg/dL (74-106)
[2024-05-24 02:09] LABS: Bedside Glucose 81 mg/dL (74-106)
[2024-05-24] MEDS: oxyCODONE 5 MG Tablet PO ×4 (05:33→21:30)
[2024-05-24] MEDS: Levothyroxine 75 MCG Tablet PO (05:33)
[2024-05-24] MEDS: Gabapentin 800 MG Tablet PO ×3 (05:33→21:29)
[2024-05-24] MEDS: 0.9% Saline Lock 10 ML Syringe IV (05:34)
[2024-05-24] MEDS: Piperacil/Tazobactam 3.375 GM in 0.9% Normal Saline (50mL MB+) 50 ML IV ×3 (05:45→21:30)
[2024-05-24 06:02] LABS: Absolute Lymphocyte Count 3.03 X10^3/uL (0.83-4.51); Absolute Neutrophil Count 1.9 X10^3/uL (2.0-7.7); Basophil# 0.03 X10^3/uL; Basophil% 0.5 % (0-1); Eosinophils% 3.6 % (0-5); Hematocrit 44.8 % (40-54); Hemoglobin 15.1 g/dL (13.0-16.5); Lymphocyte # 3.03 X10^3/ul (0.83-4.51); Lymphocyte % 53.9 % (19-41); Mean Corp Hgb Conc 33.7 g/dL (32-36); Mean Corpuscular Hgb 34.1 pg (27.0-32.0); Mean Corpuscular Volume 101.1 fL (80-94); Mean Platelet Vol. 10.5 fl (6.2-12.0); Monocyte# 0.46 X10^3/uL; Monocyte% 8.2 % (0-10); NRBC Flagged by Analyzer 0 % (0-5); Neutrophil # 1.89 X10^3/uL (2.7-7.7); Neutrophil % 33.6 % (47-70); Platelet Count 143 K/mm3 (150-450); RBC Distribution Width CV 13.1 % (11.6-14.6); RBC Distribution Width SD 49.1 fl (35.1-43.9); Red Blood Count 4.43 M/mm3 (4.6-6.2); White Blood Count 5.6 K/mm3 (4.4-11.0)
[2024-05-24] MEDS: Vancomycin HCl 1,500 MG in 0.9% Normal Saline (500mL Bag) 500 ML 250 MG IV ×2 (06:02→16:32)
[2024-05-24 06:18] LABS: Bedside Glucose 89 mg/dL (74-106)
[2024-05-24 06:29] LABS: ALB/GLOB Ratio 1.4 RATIO (0.9-2.4); AST(SGOT) 32 U/L (15-37); Alanine Aminotransfer ALT/SGPT 46 U/L (16-61); Albumin, Serum 3.3 g/dL (3.2-5.0); Alkaline Phosphatase 74 U/L (45-117); Anion Gap 4 (5-15); BUN 14 mg/dL (7-18); Calcium,Total 8.3 mg/dL (8.5-10.1); Chloride 110 mmol/L (98-107); Creatinine, Serum 0.78 mg/dL (0.70-1.30); EST Glomerular Filtration Rate 109 mL/min (>60); Est Glom Filt Rate - Afr Amer 132 mL/min (>60); Estimated Creatinine Clearance 128.61 ml/min; Globulin 2.4 g/dL (2.2-4.2); Glucose 87 mg/dL (74-106); Phosphorus 4.6 mg/dL (2.5-4.9); Potassium 3.9 mmol/L (3.5-5.1); Protein, Total 5.7 g/dL (6.4-8.2); Sodium Level 139 mmol/L (136-145)
--- NOTE | 2024-05-24 07:12 | PCM.PN.HOSP ---
Subjective Subjective Patient's notes that his pain is currently uncontrolled with last pain medication potentially 2 hours before however he was evaluated this morning by plastic surgery and his hand was soaked and packing replaced following which she is currently rating his discomfort 8-9 out of 10 in severity. Discussed current plan of care with both him and plastic surgery and at this time no further operative intervention plans therefore patient was given back a diet. Discussed with plastic surgery pending ID evaluation however plastic surgery does note likely patient will need more definitive intervention with amputation of the finger given ongoing issues. Patient denies fevers, chills, nausea, emesis, abdominal pain, chest pain or dyspnea. Objective Data Objective Data Vital Signs: Vital Signs Temp Pulse Resp BP Pulse Ox O2 Del Method O2 Flow Rate 97.5 F L 102 H 16 115/65 95 Nasal Cannula 2 05/24/24 05:53 05/24/24 05:53 05/24/24 05:53 05/24/24 05:53 05/24/24 05:53 05/24/24 05:53 05/24/24 05:53 Oxygen Flow Rate (L/min) 2 Oxygen Delivery Method Nasal Cannula Weight: 245 lb 13.047 oz Body Mass Index (BMI) 36.3 Intake & Output: Intake and Output for Last 24 Hours 05/22/24 05/23/24 05/24/24 23:59 23:59 23:59 Intake Total 50 / 50 645 / 645 Balance 50 / 50 645 / 645 Lab / Micro Data 05/24/24 05:38 05/24/24 05:38 Labs: Laboratory Results - last 24 hr 05/23/24 20:35: WBC 6.8, RBC 4.62, Hgb 16.1, Hct 45.6, MCV 98.7 H, MCH 34.8 H, MCHC 35.3, RDW Std Deviation 47.3 H, RDW Coeff of Autumn 13.0, Plt Count 164, MPV 10.5, Immature Gran % (Auto) 0.100, Neut % (Auto) 43.1 L, Lymph % (Auto) 44.6 H, [place] % (Auto) 8.3, Eos % (Auto) 3.5, Baso % (Auto) 0.4, Absolute Neuts (auto) 2.9, Absolute Lymphs (auto) 3.05, Nucleated RBC % 0, ESR < 1, Sodium 139, Potassium 3.8, Chloride 108 H, Carbon Dioxide 26.0, Anion Gap 6, BUN 15, Creatinine 0.76, Estim Creat Clear Calc 132.87, Est GFR (MDRD) Af Amer 135, Est GFR (MDRD) Non-Af 111, BUN/Creatinine Ratio 19.6, Glucose 91, Calcium 8.9, Total Bilirubin 0.60, AST 33, ALT 49, Alkaline Phosphatase 86, Troponin I High Sens 4, C-React Prot Ext Range < 2.90, Total Protein 6.7, Albumin 3.9, Globulin 2.8, Albumin/Globulin Ratio 1.4 05/23/24 23:36: POC Glucose 101 05/24/24 01:38: POC Glucose 81 05/24/24 05:38: WBC 5.6, RBC 4.43 L, Hgb 15.1, Hct 44.8, MCV 101.1 H, MCH 34.1 H, MCHC 33.7, RDW Std Deviation 49.1 H, RDW Coeff of Autumn 13.1, Plt Count 143 L, MPV 10.5, Immature Gran % (Auto) 0.200, Neut % (Auto) 33.6 L, Lymph % (Auto) 53.9 H, [place] % (Auto) 8.2, Eos % (Auto) 3.6, Baso % (Auto) 0.5, Absolute Neuts (auto) 1.9 L, Absolute Lymphs (auto) 3.03, Nucleated RBC % 0, Sodium 139, Potassium 3.9, Chloride 110 H, Carbon Dioxide 26.0, Anion Gap 4 L, BUN 14, Creatinine 0.78, Estim Creat Clear Calc 128.61, Est GFR (MDRD) Af Amer 132, Est GFR (MDRD) Non-Af 109, BUN/Creatinine Ratio 18.0, Glucose 87, Calcium 8.3 L, Phosphorus 4.6, Magnesium 2.0, Total Bilirubin 0.60, AST 32, ALT 46, Alkaline Phosphatase 74, Total Protein 5.7 L, Albumin 3.3, Globulin 2.4, Albumin/Globulin Ratio 1.4, TSH 6.790 H 05/24/24 05:51: POC Glucose 89 Radiography Diagnostic Testing: Radiology Impression Hand X-Ray 05/23/24 20:20 IMPRESSION: Soft tissue swelling of the third and fifth digits with mild subcutaneous air in the third digit. No findings to suggest acute osteomyelitis. Electronically Signed: Deonte Davenport MD at 20:52 EST , Rhythm Strip Rhythm Strip: Sinus Rhythm Rate: 67 Ectopy: None Physical Exam Narrative Physical Examination: General: Awake, alert, oriented x 3 and cooperative, seated upright in the MS bed, notes current pain to the R hand 8-9/10 in severity. Skin: Normal color, normal turgor, no icterus, no cyanosis except for bilateral lower extremity venous stasis skin changes, right hand status post recent soaking and repacking for plastic surgery with dressing in place with no drainage. HEENT: AT/NC, EOMI, PERRLA, MMM. Lungs: CTA bilaterally, moderate effort, mild decrease BL bases, no rales, ronchi or wheezing. Heart: Regular rate and rhythm; no gallop, rub audible. Abdomen: Soft, obese, NTTP, ND, normal BS. Extremities: No cyanosis, no clubbing, no marked peripheral edema except expected edema to the right hand but not severe Neurological: Patient awake, alert, oriented as noted, cognitive function intact; pupils equally reactive to light and accommodation, cranial nerves grossly normal, moving all 4 extremities although some limitation right hand given recent intervention and pain elicited, strength moderately globally decreased. Psychiatric: Affect appears fatigued, uncomfortable, no acute evidence of depressive or anxiety feelings. Assessment & Plan Assessment/Plan (1) Cellulitis of hand, right: (2) Abscess of hand, right: PLAN: Plan The patient is a 58 y/o M w/ PMHx: Hypothyroidism, Obesity, HTN, HLD, CANDELARIA on BIPAP, Diabetes mellitus type II w/ chronic neuropathy, Tobacco use, COPD, CAD s/p PCI, Hx TIA/CVA, Hx Seizures, RLS, Anxiety and Depression, GERD w/ Hx GI bleed, recently diagnosed abscess of the Right hand with flexor tenosynovitis 3rd digit s/p surgical I&D by Dr. Edwards 04/27/24 with follow-up I&D by Dr. Edwards 04/05/24 who presents to the [facility] ED on 05/23/2024 with abscess/swelling to the fifth digit of the right hand. #1. Abscess/swelling to the right hand with associated cellulitis with concern for flexor tenosynovitis concurrently with recent acid-fast positive cultures during previous surgical interventions: Admitted to medical surgical floor, maintain on IV vancomycin and IV Zosyn, infectious disease and plastic surgery consulted, continued wound care/soaks/repacking per plastic surgery with also wound RN consulted, encourage continued elevation of the hands above heart when seated in bed, monitor erythema outline with VS checks, wound cultures pending, per discussion with plastic surgery likely will eventually need for definitive surgical intervention with potential amputation given serial representation with infection. #2. Hypothyroidism with abnormal TSH: Admission TSH 6.790, will obtain FT4 follow-up. #3. CAD: Status post PCI, continue baby aspirin, temporally holding Plavix for operative intervention considerations pending plastic surgery evaluation, continued on statin, losartan, not on beta-coco therapy per current list, clarifying. #4. History TIA/CVA: Will continue aspirin, temporally holding Plavix for operative intervention considerations pending plastic surgery evaluation, continued on statin, hypertensive regimen, diabetic regimen with adjustments as noted. #5. Diabetes mellitus type II with chronic neuropathy: Hold oral home regimen, continue home insulin regimen, ADA diet, accu checks w/ ISS, continue home gabapentin regimen. Magnesium level normal. #6. Chronic COPD: Will temporarily hold home inhalers in the interim transition to ATC budesonide therapy, PRN albuterol, HOB, IS parameters. #7. Hypertension: Continue home regimen including isosorbide, Lasix, losartan with hold parameters, PRN hydralazine. #8. Hyperlipidemia: We will continue patient on statin therapy. #9. Anxiety and depression: We will continue patient home Cymbalta and mirtazapine regimen #10. Tobacco Abuse: Encouraged cessation, inpatient consultation per RT, NR if desired. #11. Obesity: Weight loss and lifestyle changes encouraged. #12. GERD with history GI bleed: We will continue patient on PPI. #13. Chart reported history of seizures: Noted remote history of seizures, not on any anti-epileptic drugs, continue to monitor. #14. Restless leg syndrome: Per current list does not appear to be on medication, monitor and add if needed. #15. CANDELARIA: BiPAP nightly. #16. DVT prophylaxis: Lovenox. Charges/Coding Visit Charges Inpatient E&M: 39818 Subs Hosp L3
[2024-05-24] MEDS: Acetaminophen 325 MG Tablet 650 MG PO ×2 (08:36→16:53)
[2024-05-24 08:44] LABS: Hemoglobin A1c 5.6 % (3.8-5.6)
--- NOTE | 2024-05-24 08:56 | WOUNDNOTE ---
wound photo: right hand
--- NOTE | 2024-05-24 10:07 | PCM.CONS.GEN ---
Assessment & Plan Assessment/Plan (1) Abscess of hand, right: PLAN: presented 03/2024 with R middle finger MSSA abscess. Taken to OR 03/06/[address] Edwards. Discharged on 3 weeks po doxy. Readmitted 04/13 for ongoing exposed tendon, taken back to OR that day. Surg cx were neg. C/o diarrhea with doxy, discharged on po keflex. Remained on keflex, hand worsened over past 2-3 weeks with increased redness, swelling. Doxy restarted, repeat cx sent 05/05. AFB culture from that day now (+). Seen at wound center 05/23/24, I&D done, repeat wound cx and AFB pending. Cont empiric vanc/zosyn. Dr. Edwards following. PCR of mycobacterial (+) cx pending. Will follow, thank you HPI Consult Data Date of Consult: 05/24/24 HPI Narrative Reason for Consultation: hand abscess HPI Narrative: ONELIA REED, is a 58 M who initially presented 03/2024 with R middle finger MSSA abscess. Taken to OR 03/06/[address] Edwards. Discharged on 3 weeks po doxy. Readmitted 04/13 for ongoing exposed tendon, taken back to OR that day. Surg cx were neg. C/o diarrhea with doxy, discharged on po keflex. Remained on keflex, hand worsened over past 2-3 weeks with increased redness, swelling. Doxy restarted, repeat cx sent 05/05. AFB stain now (+). Seen at wound center yesterday, I&D done, sent to hospital and admitted on vanc/zosyn. Feeling a little better today, pain and redness improved. Full ROS performed and neg except as noted above. [facility] Medical History Flexor tenosynovitis of finger Open wound, hand Infected hand Insulin dependent diabetes mellitus Arthritis Kidney stone TIA (transient ischemic attack) Seizures Gastric reflux Hypertension History of CVA in adulthood Antiplatelet or antithrombotic long-term use Wears glasses No natural teeth Diabetes Thyroid disease High cholesterol Blackout History of GI bleed Smoker BiPAP (biphasic positive airway pressure) dependence Sleep apnea Shortness of breath on exertion Chronic cough History of edema Leg cramps History of stress test Cardiology follow-up encounter Elevated LFTs Back pain Dorsalgia of thoracolumbar region Patellofemoral arthritis of right knee Bilateral knee pain Situational syncope Chest pain, unspecified Type 2 diabetes mellitus Essential hypertension Pneumonia due to other streptococci Atherosclerosis of coronary artery of [place] heart without angina pectoris Right bundle-branch block Gastroesophageal reflux disease Hypertriglyceridemia Obstructive sleep apnea Body mass index (BMI) 35 or more Tobacco abuse COPD (chronic obstructive pulmonary disease) MASON (dyspnea on exertion) Morbid obesity due to excess calories Localized edema Long-term use of high-risk medication Hyperlipidemia Difficulty swallowing Stage 2 moderate COPD by GOLD classification Sinus drainage Home Medications ?Medication ?Instructions ?Recorded ?Last Taken ?Type albuterol sulfate 90 mcg/actuation 6.7 g inhalation PRN PRN Wheezing 12/06/14 05/04/24 History aerosol inhaler ergocalciferol (vitamin D2) 1,250 50,000 unit PO Q7D SUPPLEMENT 12/06/14 05/04/24 History mcg (50,000 unit) capsule fluticasone propionate 50 1 spray NASAL DAILY ALLERGIES 05/05/16 04/10/24 History mcg/actuation nasal spray,suspension aspirin 81 mg tablet,delayed 81 mg PO DAILY HEART 08/11/19 05/04/24 History release duloxetine 60 mg capsule,delayed 60 mg PO DAILY MOOD 08/11/19 05/04/24 History release levothyroxine 50 mcg tablet 75 mcg PO DAILY THYROID 08/11/19 05/05/24 History losartan 50 mg tablet 25 mg PO QDAY BLOOD PRESSURE 08/11/19 05/04/24 History mirtazapine 15 mg tablet 45 mg PO QHS SLEEP AND RLS 08/11/19 05/04/24 History multivitamin 1 cap PO DAILY SUPPLEMENT 08/11/19 05/04/24 History nitroglycerin 0.4 mg sublingual 0.4 mg sublingual ONCE PRN chest 08/11/19 Unknown History tablet (Nitrostat) pain budesonide-formoterol HFA 160 2 puff inhalation BID COPD #10.2 12/05/19 05/04/24 Rx mcg-4.5 mcg/actuation aerosol grams inhaler clopidogrel 75 mg tablet 75 mg PO QDAY BLOOD THINNER #90 12/29/19 05/04/24 Rx tabs furosemide 40 mg tablet (Lasix) 60 mg PO DAILY WATER PILL 11/15/20 05/04/24 History metformin 1,000 mg tablet 1,000 mg PO BID DIABETES 11/15/20 05/04/24 History isosorbide mononitrate 60 mg 30 mg (1/2 x 60 mg) PO BID HEART 12/03/21 05/05/24 Rx tablet,extended release 24 hr #90 tabs omeprazole 40 mg capsule,delayed 40 mg PO DAILY GERD 1 month #30 06/05/23 05/05/24 Rx release caps rosuvastatin 20 mg tablet 20 mg PO QHS CHOLESTEROL 1 month 06/05/23 05/04/24 Rx #30 tabs empagliflozin 25 mg tablet 25 mg PO DAILY DAIBETES #30 tabs 11/24/23 05/04/24 Rx (Jardiance) fluticasone fur. 100 mcg-umeclid 1 ea inhalation DAILY copd 03/07/24 05/05/24 History 62.5 mcg-vilant 25 mcg inhalat.powder (Trelegy Ellipta) gabapentin 800 mg tablet 800 mg PO TID pain 03/07/24 05/04/24 History dulaglutide 1.5 mg/0.5 mL 1.5 mg subcut MENON DIABETES 03/22/24 04/24/24 History subcutaneous pen injector (Trulicity) cephalexin 500 mg capsule 500 mg PO Q8H 7 days #21 caps 05/05/24 Unknown Rx cefadroxil 500 mg capsule 500 mg PO BID 10 days #20 caps 05/19/24 Unknown Rx doxycycline monohydrate 100 mg 100 mg PO BID 10 days #20 caps 05/19/24 Unknown Rx capsule Allergy/AdvReac Type Severity Reaction Status Date / Time No Known Allergies Allergy Verified 05/19/24 09:02 Family History Father CVA (cerebral vascular accident) Brother CAD (coronary artery disease) Diabetes Mother COPD (chronic obstructive pulmonary disease) Sarcoidosis Surgical History History of hand surgery History of cardiac catheterization S/P laparoscopic cholecystectomy H/O umbilical hernia repair History of coronary artery stent placement (~03/25/16) History of carpal tunnel surgery of right wrist History of left heart catheterization Social History household members: spouse current occupational status: disabled Smoking Status: Light Smoker (<10/day) Tobacco: How many years used: 30 second hand exposure: Yes alcohol intake: never substance use type: does not use caffeine: Yes Type: coffee Number of servings: 2 what type of physical activity do you participate in: none Physical Exam Const alert, oriented x3 and no apparent distress General Appearance: cooperative HEENT normocephalic and head/scalp atraumatic Eyes PERRL and EOMs intact bilaterally Neck supple and No nodes Resp normal air movement and clear to auscultation bilaterally Cardio regular rate and regular rhythm GI soft to palpation, non-tender and non-distended Extremity General Extremity: Negative for edema Skin Skin Narrative: R hand wrapped, reviewed photos Neuro CN's II-XII intact bilaterally Lab / Micro Data Attestation: I reviewed the patient's lab results. 05/24/24 05:38 05/24/24 05:38 Labs: Laboratory Results - last 24 hr 05/23/24 20:35: WBC 6.8, RBC 4.62, Hgb 16.1, Hct 45.6, MCV 98.7 H, MCH 34.8 H, MCHC 35.3, RDW Std Deviation 47.3 H, RDW Coeff of Autumn 13.0, Plt Count 164, MPV 10.5, Immature Gran % (Auto) 0.100, Neut % (Auto) 43.1 L, Lymph % (Auto) 44.6 H, Hendricks % (Auto) 8.3, Eos % (Auto) 3.5, Baso % (Auto) 0.4, Absolute Neuts (auto) 2.9, Absolute Lymphs (auto) 3.05, Nucleated RBC % 0, ESR < 1, Sodium 139, Potassium 3.8, Chloride 108 H, Carbon Dioxide 26.0, Anion Gap 6, BUN 15, Creatinine 0.76, Estim Creat Clear Calc 132.87, Est GFR (MDRD) Af Amer 135, Est GFR (MDRD) Non-Af 111, BUN/Creatinine Ratio 19.6, Glucose 91, Calcium 8.9, Total Bilirubin 0.60, AST 33, ALT 49, Alkaline Phosphatase 86, Troponin I High Sens 4, C-React Prot Ext Range < 2.90, Total Protein 6.7, Albumin 3.9, Globulin 2.8, Albumin/Globulin Ratio 1.4 05/23/24 23:36: POC Glucose 101 05/24/24 01:38: POC Glucose 81 05/24/24 05:38: WBC 5.6, RBC 4.43 L, Hgb 15.1, Hct 44.8, MCV 101.1 H, MCH 34.1 H, MCHC 33.7, RDW Std Deviation 49.1 H, RDW Coeff of Autumn 13.1, Plt Count 143 L, MPV 10.5, Immature Gran % (Auto) 0.200, Neut % (Auto) 33.6 L, Lymph % (Auto) 53.9 H, Hendricks % (Auto) 8.2, Eos % (Auto) 3.6, Baso % (Auto) 0.5, Absolute Neuts (auto) 1.9 L, Absolute Lymphs (auto) 3.03, Nucleated RBC % 0, Sodium 139, Potassium 3.9, Chloride 110 H, Carbon Dioxide 26.0, Anion Gap 4 L, BUN 14, Creatinine 0.78, Estim Creat Clear Calc 128.61, Est GFR (MDRD) Af Amer 132, Est GFR (MDRD) Non-Af 109, BUN/Creatinine Ratio 18.0, Glucose 87, Hemoglobin A1c 5.6, Calcium 8.3 L, Phosphorus 4.6, Magnesium 2.0, Total Bilirubin 0.60, AST 32, ALT 46, Alkaline Phosphatase 74, Total Protein 5.7 L, Albumin 3.3, Globulin 2.4, Albumin/Globulin Ratio 1.4, TSH 6.790 H 05/24/24 05:51: POC Glucose 89 Rhythm Strip Rhythm Strip: Sinus Rhythm Rate: 67 Ectopy: None Imaging Radiology Impression Hand X-Ray 05/23/24 20:20 IMPRESSION: Soft tissue swelling of the third and fifth digits with mild subcutaneous air in the third digit. No findings to suggest acute osteomyelitis. Electronically Signed: Deonte Davenport MD at 20:52 EST ,
[2024-05-24] MEDS: Pantoprazole Sodium 40 MG Tablet PO (11:52)
[2024-05-24] MEDS: Ascorbic Acid 500 MG Tablet 1000 MG PO ×2 (11:52→16:53)
[2024-05-24] MEDS: Furosemide 20 MG Tablet 60 MG PO (11:52)
[2024-05-24] MEDS: DULoxetine Hcl 60 MG Capsule PO (11:52)
[2024-05-24] MEDS: Zinc Sulfate 50 mg zinc (220 mg) ORAL capsule PO (11:52)
[2024-05-24] MEDS: Multivitamins,Therapeutic Tablet 1 TABLET PO (11:52)
[2024-05-24] MEDS: Isosorbide Mononitrate 30 MG Tablet PO ×2 (11:53→21:29)
[2024-05-24] MEDS: Lactobacillis Acidophilus 1 CAP PO ×4 (11:54→21:29)
[2024-05-24] MEDS: Enoxaparin 40 MG/0.4 ML Syringe SC (11:55)
[2024-05-24] MEDS: Ergocalciferol 1.25 MG (50, 000 UNIT) Capsule PO (12:10)
[2024-05-24] MEDS: Aspirin E.C. 81 MG Tablet PO (12:10)
[2024-05-24] MEDS: Losartan Potassium 25 MG Tablet PO (12:10)
--- NOTE | 2024-05-24 12:30 | CASEMGMT ---
CORRY KING Assessment: Face to Face with pt for initial transition planning/care coordination assessment. CORRY KING introduced self and role at [facility], pt voices understanding and consents to assessment. Pt is A&O x4 and answers all questions appropriately at this time. Pt sitting on edge of bed in no distress. Care providers, pharmacy, and demographics verified/updated. Admitting Dx: abscess of the 5th digit of the right hand Strata Score: 3 PCP:Viola Gunderson NP C Specialists:mike Edwards [facility] Insurance: [employer] Prescription Benefit: yes LNOK: Aleisha Garibay, Living Arrangements: Pt lives with in a ground level apt with 4 steps to enter with a rail. Pt reports he is I in ADLs and denies concerns at home. Transportation: Pt drives self and denies concerns with transportation. DME:cane, walker, pox, BP cuff, bipap, BGM with sufficient supply of lancets and strips, insulin with sufficient supply of insulin and needles. HHC/SNF: Denies hx of Pt states no concerns with going home at time of dc. Pt does not use AD to ambulate. ID consulted. Pt states no further concerns/needs. CM to follow. Advised pt to ask CM if any further question/concerns/needs arise, voices understanding. Pt Goal: Home Plan: Home pending course of hospitalization and ID recommendations Corky WHEATLEY CM
[2024-05-24] MEDS: Ipratropium/Albuterol Sulfate 3 ML AMPUL.NEB INHALATION ×2 (13:48→19:15)
[2024-05-24 14:53] LABS: T4 Free Direct 0.91 ng/dL (0.76-1.46)
--- NOTE | 2024-05-24 15:45 | EX.PCM.CON.S ---
Assessment & Plan Assessment/Plan (1) Cellulitis of hand, right: PLAN: Agree with admission to medicine and infectious disease consultation (2) Abscess of hand, right: PLAN: Source control obtained at this point Will monitor for development of flexor tenosynovitis PLAN: Plan Elevate right upper extremity Continue 3 times per day Dial soap soaks with iodoform packing to the wounds Agree with broad-spectrum antibiotics Follow-up cultures HPI Consult Data Date of Consult: 05/24/24 HPI Narrative HPI Narrative: ONELIA REED, is a 58 M who presents with right volar long finger abscess and right volar small finger abscess status post I&D in the wound care center who has surrounding cellulitis of his right hand. Patient has a complicated medical history including initial right long finger flexor tenosynovitis in March 2024 requiring multiple trips to the operating room including a carpal tunnel release for source control. Cultures grew MSSA. He has multiple comorbidities including COPD, active smoking/tobacco use, and diabetes, and has had issues with wound healing postoperatively. He required 3 separate procedures for attempts at closure of his palmar soft tissue at the level of the A1 bruce. The third procedure was a flap reconstruction with Integra placement. Plan for later this week with skin grafting of the small open area where Integra was placed to prevent contractures. Unfortunately he came to my clinic yesterday, 23 May 2024, with the above-noted abscesses in a different location, 1 of which is along the flexor sheath of the right long finger. The flap and recent reconstruction has healed. Unfortunately have concerns that the flexor tendon is infected chronically, as the cultures from the last surgery grew and are currently growing acid-fast bacteria. Infectious disease was notified immediately after the cultures were positive last week. Given that they could be a contaminant as the bacteria was growing in the broth only, they recommended no empiric acid-fast antibiotics, rather just antibiotics for gram-positive and negative bacteria if concern for infection. He had slight redness in clinic last week and therefore was placed on outpatient oral antibiotics. When he came in the clinic yesterday he had a profound long finger abscess over P2. When the skin was incised, the abscess cavity was down to the flexor tendon. It was washed out with copious months normal saline and cultured. So far the cultures have not grown anything. He also had another abscess on the right small finger which was opened carefully in clinic as well. Cultures are pending. I asked him to go immediately to the emergency department last night where an x-ray was performed. No signs of osteomyelitis. His white count was within normal limits at 5 and his sugar was well-controlled at 87. His vital signs are stable. He was admitted to medicine for right hand cellulitis and infectious disease consultation. This morning he reports improved pain. I remove the dressings and started him on a Dial soap soak. [facility] Medical History Flexor tenosynovitis of finger Open wound, hand Infected hand Insulin dependent diabetes mellitus Arthritis Kidney stone TIA (transient ischemic attack) Seizures Gastric reflux Hypertension History of CVA in adulthood Antiplatelet or antithrombotic long-term use Wears glasses No natural teeth Diabetes Thyroid disease High cholesterol Blackout History of GI bleed Smoker BiPAP (biphasic positive airway pressure) dependence Sleep apnea Shortness of breath on exertion Chronic cough History of edema Leg cramps History of stress test Cardiology follow-up encounter Elevated LFTs Back pain Dorsalgia of thoracolumbar region Patellofemoral arthritis of right knee Bilateral knee pain Situational syncope Chest pain, unspecified Type 2 diabetes mellitus Essential hypertension Pneumonia due to other streptococci Atherosclerosis of coronary artery of [place] heart without angina pectoris Right bundle-branch block Gastroesophageal reflux disease Hypertriglyceridemia Obstructive sleep apnea Body mass index (BMI) 35 or more Tobacco abuse COPD (chronic obstructive pulmonary disease) MASON (dyspnea on exertion) Morbid obesity due to excess calories Localized edema Long-term use of high-risk medication Hyperlipidemia Difficulty swallowing Stage 2 moderate COPD by GOLD classification Sinus drainage Home Medications ?Medication ?Instructions ?Recorded ?Last Taken ?Type albuterol sulfate 90 mcg/actuation 6.7 g inhalation PRN PRN Wheezing 12/06/14 05/04/24 History aerosol inhaler ergocalciferol (vitamin D2) 1,250 50,000 unit PO Q7D SUPPLEMENT 12/06/14 05/04/24 History mcg (50,000 unit) capsule fluticasone propionate 50 1 spray NASAL DAILY ALLERGIES 05/05/16 04/10/24 History mcg/actuation nasal spray,suspension aspirin 81 mg tablet,delayed 81 mg PO DAILY HEART 08/11/19 05/04/24 History release duloxetine 60 mg capsule,delayed 60 mg PO DAILY MOOD 08/11/19 05/04/24 History release levothyroxine 50 mcg tablet 75 mcg PO DAILY THYROID 08/11/19 05/05/24 History losartan 50 mg tablet 25 mg PO QDAY BLOOD PRESSURE 08/11/19 05/04/24 History mirtazapine 15 mg tablet 45 mg PO QHS SLEEP AND RLS 08/11/19 05/04/24 History multivitamin 1 cap PO DAILY SUPPLEMENT 08/11/19 05/04/24 History nitroglycerin 0.4 mg sublingual 0.4 mg sublingual ONCE PRN chest 08/11/19 Unknown History tablet (Nitrostat) pain budesonide-formoterol HFA 160 2 puff inhalation BID COPD #10.2 12/05/19 05/04/24 Rx mcg-4.5 mcg/actuation aerosol grams inhaler clopidogrel 75 mg tablet 75 mg PO QDAY BLOOD THINNER #90 12/29/19 05/04/24 Rx tabs furosemide 40 mg tablet (Lasix) 60 mg PO DAILY WATER PILL 11/15/20 05/04/24 History metformin 1,000 mg tablet 1,000 mg PO BID DIABETES 11/15/20 05/04/24 History isosorbide mononitrate 60 mg 30 mg (1/2 x 60 mg) PO BID HEART 12/03/21 05/05/24 Rx tablet,extended release 24 hr #90 tabs omeprazole 40 mg capsule,delayed 40 mg PO DAILY GERD 1 month #30 06/05/23 05/05/24 Rx release caps rosuvastatin 20 mg tablet 20 mg PO QHS CHOLESTEROL 1 month 06/05/23 05/04/24 Rx #30 tabs empagliflozin 25 mg tablet 25 mg PO DAILY DAIBETES #30 tabs 11/24/23 05/04/24 Rx (Jardiance) fluticasone fur. 100 mcg-umeclid 1 ea inhalation DAILY copd 03/07/24 05/05/24 History 62.5 mcg-vilant 25 mcg inhalat.powder (Trelegy Ellipta) gabapentin 800 mg tablet 800 mg PO TID pain 03/07/24 05/04/24 History dulaglutide 1.5 mg/0.5 mL 1.5 mg subcut MENON DIABETES 03/22/24 04/24/24 History subcutaneous pen injector (Trulicity) cephalexin 500 mg capsule 500 mg PO Q8H 7 days #21 caps 05/05/24 Unknown Rx cefadroxil 500 mg capsule 500 mg PO BID 10 days #20 caps 05/19/24 Unknown Rx doxycycline monohydrate 100 mg 100 mg PO BID 10 days #20 caps 05/19/24 Unknown Rx capsule Allergy/AdvReac Type Severity Reaction Status Date / Time No Known Allergies Allergy Verified 05/19/24 09:02 Family History Father CVA (cerebral vascular accident) Brother CAD (coronary artery disease) Diabetes Mother COPD (chronic obstructive pulmonary disease) Sarcoidosis Surgical History History of hand surgery History of cardiac catheterization S/P laparoscopic cholecystectomy H/O umbilical hernia repair History of coronary artery stent placement (~03/25/16) History of carpal tunnel surgery of right wrist History of left heart catheterization Social History household members: spouse current occupational status: disabled Smoking Status: Light Smoker (<10/day) Tobacco: How many years used: 30 second hand exposure: Yes alcohol intake: never substance use type: does not use caffeine: Yes Type: coffee Number of servings: 2 what type of physical activity do you participate in: none Physical Exam Narrative Right upper Extremity Inspection: Palmar flap warm and viable and healed. Distal right long finger over P2 with full-thickness wound down to tendon. No purulent drainage on rounds today. Right small finger volar surface on radial side of P1 open and without any drainage either. Significantly less swelling. Palpation: No pain in the palm and no pain over the carpal tunnel. No pain with passive tendon excursion on any of the fingers at the level of the DIP joint. No signs of proximal flexor tenosynovitis or an uncontrolled infection. Motor: Able to bend and extend all MP, PIP, and DIP joints. Sensory: Intact to light touch on the radial and ulnar borders. Vascular: Finger tips are warm and well perfused with <2 second capillary refill. Lab / Micro Data 05/24/24 05:38 05/24/24 05:38 Labs: Laboratory Results - last 24 hr 05/23/24 20:35: WBC 6.8, RBC 4.62, Hgb 16.1, Hct 45.6, MCV 98.7 H, MCH 34.8 H, MCHC 35.3, RDW Std Deviation 47.3 H, RDW Coeff of Autumn 13.0, Plt Count 164, MPV 10.5, Immature Gran % (Auto) 0.100, Neut % (Auto) 43.1 L, Lymph % (Auto) 44.6 H, Keith % (Auto) 8.3, Eos % (Auto) 3.5, Baso % (Auto) 0.4, Absolute Neuts (auto) 2.9, Absolute Lymphs (auto) 3.05, Nucleated RBC % 0, ESR < 1, Sodium 139, Potassium 3.8, Chloride 108 H, Carbon Dioxide 26.0, Anion Gap 6, BUN 15, Creatinine 0.76, Estim Creat Clear Calc 132.87, Est GFR (MDRD) Af Amer 135, Est GFR (MDRD) Non-Af 111, BUN/Creatinine Ratio 19.6, Glucose 91, Calcium 8.9, Total Bilirubin 0.60, AST 33, ALT 49, Alkaline Phosphatase 86, Troponin I High Sens 4, C-React Prot Ext Range < 2.90, Total Protein 6.7, Albumin 3.9, Globulin 2.8, Albumin/Globulin Ratio 1.4 05/23/24 23:36: POC Glucose 101 05/24/24 01:38: POC Glucose 81 05/24/24 05:38: WBC 5.6, RBC 4.43 L, Hgb 15.1, Hct 44.8, MCV 101.1 H, MCH 34.1 H, MCHC 33.7, RDW Std Deviation 49.1 H, RDW Coeff of Autumn 13.1, Plt Count 143 L, MPV 10.5, Immature Gran % (Auto) 0.200, Neut % (Auto) 33.6 L, Lymph % (Auto) 53.9 H, Keith % (Auto) 8.2, Eos % (Auto) 3.6, Baso % (Auto) 0.5, Absolute Neuts (auto) 1.9 L, Absolute Lymphs (auto) 3.03, Nucleated RBC % 0, Sodium 139, Potassium 3.9, Chloride 110 H, Carbon Dioxide 26.0, Anion Gap 4 L, BUN 14, Creatinine 0.78, Estim Creat Clear Calc 128.61, Est GFR (MDRD) Af Amer 132, Est GFR (MDRD) Non-Af 109, BUN/Creatinine Ratio 18.0, Glucose 87, Hemoglobin A1c 5.6, Calcium 8.3 L, Phosphorus 4.6, Magnesium 2.0, Total Bilirubin 0.60, AST 32, ALT 46, Alkaline Phosphatase 74, Total Protein 5.7 L, Albumin 3.3, Globulin 2.4, Albumin/Globulin Ratio 1.4, TSH 6.790 H, Free T4 0.91 05/24/24 05:51: POC Glucose 89 Rhythm Strip Rhythm Strip: Sinus Rhythm Rate: 67 Ectopy: None Imaging Radiology Impression Hand X-Ray 05/23/24 20:20 IMPRESSION: Soft tissue swelling of the third and fifth digits with mild subcutaneous air in the third digit. No findings to suggest acute osteomyelitis. Electronically Signed: Deonte Davenport MD at 20:52 EST , Charges/Coding Procedures Integumentary [id number]: [id number] Global Visit
[2024-05-24] MEDS: Glucerna Shake 120 ML LIQUID PO (17:00)
[2024-05-24] MEDS: Budesonide Respules 0.5 MG/2 ML AMPUL.NEB. INHALATION (19:15)
[2024-05-24 20:15] LABS: Bedside Glucose 81 mg/dL (74-106)
[2024-05-24] MEDS: Atorvastatin Calcium 40 MG Tablet PO (21:29)
[2024-05-24] MEDS: Mirtazapine 15 MG Tablet 45 MG PO (21:29)
[2024-05-24 21:54] LABS: Bedside Glucose 121 mg/dL (74-106)
[2024-05-24 21:54] LABS: Bedside Glucose 129 mg/dL (74-106)
[2024-05-24 22:41] LABS: Vancomycin, Trough Level 26.2 ug/mL (5.0-15.0)
--- NOTE | 2024-05-24 22:49 | PCM.RX.CS ---
Consult Antibiotic Management Pharmacy has been consulted to manage selected antibiotic: Vancomycin Type of Intervention Type of Consult: Follow-up Labs Labs: Sodium 139 mmol/L (136-145) 05/24/24 05:38 Potassium 3.9 mmol/L (3.5-5.1) 05/24/24 05:38 Chloride 110 mmol/L (98-107) H 05/24/24 05:38 Carbon Dioxide 26.0 mmol/L (21.0-32.0) 05/24/24 05:38 Anion Gap 4 (5-15) L 05/24/24 05:38 BUN 14 mg/dL (7-18) 05/24/24 05:38 Creatinine 0.78 mg/dL (0.70-1.30) 05/24/24 05:38 Est GFR (MDRD) Af Amer 132 mL/min (>60) 05/24/24 05:38 Est GFR (MDRD) Non-Af 109 mL/min (>60) 05/24/24 05:38 BUN/Creatinine Ratio 18.0 RATIO (10-20) 05/24/24 05:38 Glucose 87 mg/dL (74-106) 05/24/24 05:38 Vancomycin Trough 26.2 ug/mL (5.0-15.0) H 05/24/24 21:54 Dosing Weight Weight used for dosin.5 kg Estimated Creatinine Clearance Estimated Creatinine Clearance: 129 Goal Trough Goal Trough: 15-20 mcg/mL Pharmacy Plan for Drug Dosing Pharmacy Plan for Drug Dosing: Vancomycin trough level of 26.2 was above the target range of 15-20. The previous dose had been hung late, so this was just a 5.3hr level, but still too high to continue dosing. Will suspend current dosing and draw a random level in eight hours. Pharmacy Service will continue to monitor and adjust dosing as required. Follow-Up Labs Follow-Up Labs: Trough: Vancomycin (random) Date/Time Labs Ordered Labs to be done on [date and time ordered]: 05/25/24 @0600 random
[2024-05-25] VITALS (7 sets, daily range): BP systolic 123–136; BP diastolic 62–91; PULSE 60–70; RESP 16–17; TEMP 36.2–36.5; O2SAT 92–100; BMI 37.9
[2024-05-25] MEDS: oxyCODONE 5 MG Tablet PO ×6 (01:08→20:54)
[2024-05-25] MEDS: Acetaminophen 325 MG Tablet 650 MG PO ×3 (01:08→19:32)
[2024-05-25] MEDS: Gabapentin 800 MG Tablet PO ×3 (05:45→20:59)
[2024-05-25] MEDS: Piperacil/Tazobactam 3.375 GM in 0.9% Normal Saline (50mL MB+) 50 ML IV ×3 (05:45→21:04)
[2024-05-25 06:05] LABS: Absolute Neutrophil Count 1.7 X10^3/uL (2.0-7.7); Basophil# 0.03 X10^3/uL; Basophil% 0.6 % (0-1); Eosinophil# 0.22 X10^3/uL; Eosinophils% 4.6 % (0-5); Hematocrit 43.9 % (40-54); Hemoglobin 15.2 g/dL (13.0-16.5); Lymphocyte % 50.4 % (19-41); Mean Corp Hgb Conc 34.6 g/dL (32-36); Mean Corpuscular Hgb 34.4 pg (27.0-32.0); Mean Corpuscular Volume 99.3 fL (80-94); Mean Platelet Vol. 10.4 fl (6.2-12.0); Monocyte# 0.39 X10^3/uL; Monocyte% 8.2 % (0-10); NRBC Flagged by Analyzer 0 % (0-5); Neutrophil # 1.71 X10^3/uL (2.7-7.7); Platelet Count 153 K/mm3 (150-450); RBC Distribution Width SD 47.4 fl (35.1-43.9); Red Blood Count 4.42 M/mm3 (4.6-6.2); White Blood Count 4.8 K/mm3 (4.4-11.0)
[2024-05-25] MEDS: Levothyroxine 75 MCG Tablet PO (06:21)
--- NOTE | 2024-05-25 06:24 | PN.HOSP_ITS ---
Reason for Visit Reason for Visit: Diagnoses Type 2 diabetes mellitus with diabetic polyneuropathy (05/23/24) Obesity, unspecified (05/23/24) Obstructive sleep apnea (adult) (pediatric) (05/23/24) Cutaneous abscess of right hand (05/23/24) Cellulitis of right upper limb (05/23/24) Unspecified synovitis and tenosynovitis, unspecified hand (05/23/24) Unspecified open wound of right hand, subsequent encounter (05/23/24) Tobacco use (05/23/24) group home (current) use of insulin (05/23/24) Subjective Subjective Patient overnight with no acute events per self and per nursing report but he does report that when he gets up especially in the mornings and in the evening he did feel generalized aches in his joint but no fevers or sweats. He does note that his hand is currently aching and rates his discomfort 5-6 out of 10 in severity. Discussed plan for slight medication adjustments and he is amenable to this. Patient denies fevers, chills, nausea, emesis, abdominal pain, chest pain or dyspnea. Objective Data Objective Data Vital Signs: Vital Signs Temp Pulse Resp BP Pulse Ox O2 Del Method O2 Flow Rate 97.7 F L 63 16 126/62 H 100 Room Air 2 05/25/24 05:00 05/25/24 05:00 05/25/24 05:00 05/25/24 05:00 05/25/24 05:00 05/25/24 05:00 05/24/24 08:10 Oxygen Flow Rate (L/min) 2 Oxygen Delivery Method Room Air Weight: 255 lb 15.307 oz Body Mass Index (BMI) 37.9 Intake & Output: Intake and Output for Last 24 Hours 05/23/24 05/24/24 05/25/24 23:59 23:59 23:59 Intake Total 50 / 50 3205 / 3705 550 / 550 Balance 50 / 50 3205 / 3705 550 / 550 Lab / Micro Data 05/25/24 05:50 05/25/24 05:50 Labs: Laboratory Results - last 24 hr 05/24/24 05:38: Sodium 139, Potassium 3.9, Chloride 110 H, Carbon Dioxide 26.0, Anion Gap 4 L, BUN 14, Creatinine 0.78, Estim Creat Clear Calc 128.61, Est GFR (MDRD) Af Amer 132, Est GFR (MDRD) Non-Af 109, BUN/Creatinine Ratio 18.0, Glucose 87, Hemoglobin A1c 5.6, Calcium 8.3 L, Phosphorus 4.6, Magnesium 2.0, Total Bilirubin 0.60, AST 32, ALT 46, Alkaline Phosphatase 74, Total Protein 5.7 L, Albumin 3.3, Globulin 2.4, Albumin/Globulin Ratio 1.4, TSH 6.790 H, Free T4 0.91 05/24/24 12:16: POC Glucose 81 05/24/24 17:03: POC Glucose 129 H 05/24/24 21:35: POC Glucose 121 H 05/24/24 21:54: Vancomycin Trough 26.2 H 05/25/24 05:50: WBC 4.8, RBC 4.42 L, Hgb 15.2, Hct 43.9, MCV 99.3 H, MCH 34.4 H, MCHC 34.6, RDW Std Deviation 47.4 H, RDW Coeff of Autumn 13.0, Plt Count 153, MPV 10.4, Immature Gran % (Auto) 0.200, Neut % (Auto) 36.0 L, Lymph % (Auto) 50.4 H, [place] % (Auto) 8.2, Eos % (Auto) 4.6, Baso % (Auto) 0.6, Absolute Neuts (auto) 1.7 L, Absolute Lymphs (auto) 2.40, Nucleated RBC % 0 Rhythm Strip Rhythm Strip: Sinus Rhythm Rate: 67 Ectopy: None Physical Exam Narrative Physical Examination: General: Awake, alert, oriented x 3 and cooperative, initially walking in MS room, notes hand discomfort more throbbing and aching rating it 5-6 out of 10 in severity, discussing the fact that he frequently chronically wakes up with joint discomfort which improves with movement. Skin: Normal color, normal turgor, no icterus, no cyanosis except for bilateral lower extremity venous stasis skin changes, right hand status with dressing in place, no drainage. HEENT: AT/NC, EOMI, PERRLA, MMM. Lungs: CTA bilaterally, moderate effort, mild decrease BL bases, no rales, ronchi or wheezing. Heart: Regular rate and rhythm; no gallop, rub audible. Abdomen: Soft, obese, NTTP, ND, normal BS. Extremities: No cyanosis, no clubbing, no marked peripheral edema except expected mild edema to the right hand but not severe, moving fingers without issue, appropriately warm to touch. Neurological: Patient awake, alert, oriented as noted, cognitive function intact; pupils equally reactive to light and accommodation, cranial nerves grossly normal, moving all 4 extremities although some limitation right hand given recent intervention and pain elicited, strength improving, mildly to moderately globally decreased. Psychiatric: Affect appears less fatigued, more interactive, no acute evidence of depressive or anxiety feelings. Assessment & Plan Assessment/Plan (1) Cellulitis of hand, right: (2) Abscess of hand, right: PLAN: Plan The patient is a 58 y/o M w/ PMHx: Hypothyroidism, Obesity, HTN, HLD, CANDELARIA on BIPAP, Diabetes mellitus type II w/ chronic neuropathy, Tobacco use, COPD, CAD s/p PCI, Hx TIA/CVA, Hx Seizures, RLS, Anxiety and Depression, GERD w/ Hx GI bleed, recently diagnosed abscess of the Right hand with flexor tenosynovitis 3rd digit s/p surgical I&D by Dr. Edwards 04/27/24 with follow-up I&D by Dr. Edwards 04/05/24 who presents to the [facility] ED on 05/23/2024 with abscess/swelling to the fifth digit of the right hand. #1. Abscess/swelling to the right hand with associated cellulitis with concern for flexor tenosynovitis concurrently with recent acid-fast positive cultures during previous surgical interventions: Admitted to medical surgical floor, maintained on IV vancomycin and IV Zosyn, infectious disease and plastic surgery consulted, continued wound care/soaks/repacking per plastic surgery with also wound RN consulted, encourage continued elevation of the hands above heart when seated in bed, monitor erythema outline with VS checks, wound cultures pending with currently PCR mycobacterial positive culture pending, per discussion with plastic surgery likely will eventually need for definitive surgical intervention with potential amputation given serial representation with infection. 05/25/2024 CBC with WBC 4.8, human 15.2, platelet 153 with ANC 1.7. #2. Hypothyroidism with abnormal TSH: Admission TSH 6.790, follow-up free T4 normal 0.91. Encourage continued outpatient follow-up with repeat thyroid function studies in 6 to 8 weeks. #3. CAD: Status post PCI, continue baby aspirin, temporally upon admission held Plavix for operative intervention considerations pending plastic surgery evaluation but given no plan for current operative intervention resumed 05/25/2024, continued on statin, losartan, not on beta-coco therapy per current list, clarifying. #4. History TIA/CVA: Will continue aspirin, temporally held Plavix for operative intervention considerations pending plastic surgery evaluation but given no plans for current operative intervention resumed 05/25/2024, continued on statin, hypertensive regimen, diabetic regimen with adjustments as noted. #5. Diabetes mellitus type II with chronic neuropathy: Hold oral home regimen, continue home insulin regimen, ADA diet, accu checks w/ ISS, continue home gabapentin regimen. Magnesium level normal. #6. Chronic COPD: Will temporarily hold home inhalers in the interim transition to ATC budesonide therapy, PRN albuterol, HOB, IS parameters. #7. Hypertension: Continue home regimen including isosorbide, Lasix, losartan with hold parameters, PRN hydralazine. #8. Hyperlipidemia: We will continue patient on statin therapy. #9. Anxiety and depression: We will continue patient home Cymbalta and mirtazapine regimen #10. Tobacco Abuse: Encouraged cessation, inpatient consultation per RT, NR if desired. #11. Obesity: Weight loss and lifestyle changes encouraged. #12. GERD with history GI bleed: We will continue patient on PPI. #13. Chart reported history of seizures: Noted remote history of seizures, not on any anti-epileptic drugs, continue to monitor. #14. Restless leg syndrome: Per current list does not appear to be on medication, monitor and add if needed. #15. CANDELARIA: BiPAP nightly. #16. DVT prophylaxis: Lovenox. Charges/Coding Visit Charges Inpatient E&M: 56198 Subs Hosp L2
[2024-05-25 06:32] LABS: Vancomycin, Random Level 13.8 ug/mL (0.0-15.0)
[2024-05-25 06:35] LABS: ALB/GLOB Ratio 1.4 RATIO (0.9-2.4); AST(SGOT) 35 U/L (15-37); Alanine Aminotransfer ALT/SGPT 50 U/L (16-61); Albumin, Serum 3.7 g/dL (3.2-5.0); Alkaline Phosphatase 81 U/L (45-117); Anion Gap 4 (5-15); BUN 14 mg/dL (7-18); BUN/Creat Ratio 14.8 RATIO (10-20); Calcium,Total 8.2 mg/dL (8.5-10.1); Chloride 105 mmol/L (98-107); Creatinine, Serum 0.94 mg/dL (0.70-1.30); EST Glomerular Filtration Rate 88 mL/min (>60); Est Glom Filt Rate - Afr Amer 106 mL/min (>60); Estimated Creatinine Clearance 108.97 ml/min; Globulin 2.7 g/dL (2.2-4.2); Glucose 103 mg/dL (74-106); Magnesium 2.2 mg/dL (1.6-2.6); Phosphorus 4.6 mg/dL (2.5-4.9); Potassium 3.6 mmol/L (3.5-5.1); Protein, Total 6.4 g/dL (6.4-8.2); Sodium Level 136 mmol/L (136-145)
--- NOTE | 2024-05-25 06:45 | PCM.RX.CS ---
Consult Antibiotic Management Pharmacy has been consulted to manage selected antibiotic: Vancomycin Type of Intervention Type of Consult: Follow-up Labs Labs: Sodium 136 mmol/L (136-145) 05/25/24 05:50 Potassium 3.6 mmol/L (3.5-5.1) 05/25/24 05:50 Chloride 105 mmol/L (98-107) 05/25/24 05:50 Carbon Dioxide 28.0 mmol/L (21.0-32.0) 05/25/24 05:50 Anion Gap 4 (5-15) L 05/25/24 05:50 BUN 14 mg/dL (7-18) 05/25/24 05:50 Creatinine 0.94 mg/dL (0.70-1.30) 05/25/24 05:50 Est GFR (MDRD) Af Amer 106 mL/min (>60) 05/25/24 05:50 Est GFR (MDRD) Non-Af 88 mL/min (>60) 05/25/24 05:50 BUN/Creatinine Ratio 14.8 RATIO (10-20) 05/25/24 05:50 Glucose 103 mg/dL (74-106) 05/25/24 05:50 Vancomycin Trough 26.2 ug/mL (5.0-15.0) H 05/24/24 21:54 Random Vancomycin 13.8 ug/mL (0.0-15.0) 05/25/24 05:50 Dosing Weight Weight used for dosin kg Estimated Creatinine Clearance Estimated Creatinine Clearance: 108 Goal Trough Goal Trough: 15-20 mcg/mL Pharmacy Plan for Drug Dosing Pharmacy Plan for Drug Dosing: Random vancomycin level was 13.8. Per dosing calculator, a new dose of 2000mg q 12 hours should give an estimated new trough of 16.1. Will initiate that dose, and will draw another trough prior to fourth dose of the new regimen. Pharmacy Service will continue to monitor and adjust dosing as required. Follow-Up Labs Follow-Up Labs: Trough: Vancomycin Date/Time Labs Ordered Labs to be done on [date and time ordered]: 05/26/24 @7645
[2024-05-25 06:47] LABS: Bedside Glucose 109 mg/dL (74-106)
[2024-05-25] MEDS: Vancomycin HCl 2,000 MG in 0.9% Normal Saline (500mL Bag) 500 ML 250 MG IV ×2 (06:56→19:31)
[2024-05-25] MEDS: Budesonide Respules 0.5 MG/2 ML AMPUL.NEB. INHALATION ×2 (07:29→19:15)
[2024-05-25] MEDS: Ipratropium/Albuterol Sulfate 3 ML AMPUL.NEB INHALATION ×3 (07:29→19:15)
[2024-05-25] MEDS: Aspirin E.C. 81 MG Tablet PO (07:48)
[2024-05-25] MEDS: Multivitamins,Therapeutic Tablet 1 TABLET PO (07:48)
[2024-05-25] MEDS: Ascorbic Acid 500 MG Tablet 1000 MG PO ×2 (07:48→16:41)
[2024-05-25] MEDS: DULoxetine Hcl 60 MG Capsule PO (07:49)
[2024-05-25] MEDS: Losartan Potassium 25 MG Tablet PO (07:49)
[2024-05-25] MEDS: Lactobacillis Acidophilus 1 CAP PO ×4 (07:49→20:59)
[2024-05-25] MEDS: Fluticasone 0.05% 1 SPRAY NASAL.SRY NASAL (07:49)
[2024-05-25] MEDS: Isosorbide Mononitrate 30 MG Tablet PO ×2 (07:50→20:59)
[2024-05-25] MEDS: Furosemide 20 MG Tablet 60 MG PO (07:50)
[2024-05-25] MEDS: Enoxaparin 40 MG/0.4 ML Syringe SC (07:50)
[2024-05-25] MEDS: Zinc Sulfate 50 mg zinc (220 mg) ORAL capsule PO (07:53)
[2024-05-25] MEDS: Pantoprazole Sodium 40 MG Tablet PO (08:06)
--- NOTE | 2024-05-25 11:20 | PCM.PN.BLA ---
Progress Note Pain controlled overall. Some subjective fevers/chills. Walking and has SCDs on Physical Exam Narrative Right upper Extremity Inspection: Palmar flap warm and viable and healed. Distal right long finger over P2 with full-thickness wound down to tendon. No purulent drainage on rounds today. Right small finger volar surface on radial side of P1 open and without any drainage either. Significantly less swelling. Wounds granulating with soaks. Improved today. No signs of ascending infection/flexor tenosynovitis in the palm. Palpation: No pain in the palm and no pain over the carpal tunnel. No pain with passive tendon excursion on any of the fingers at the level of the DIP joint. No signs of proximal flexor tenosynovitis or an uncontrolled infection. Motor: Able to bend and extend all MP, PIP, and DIP joints. Sensory: Intact to light touch on the radial and ulnar borders. Vascular: Finger tips are warm and well perfused with <2 second capillary refill. Assessment & Plan Assessment/Plan (1) Cellulitis of hand, right: PLAN: Agree with admission to medicine and infectious disease consultation (2) Abscess of hand, right: PLAN: Source control obtained at this point Will monitor for development of flexor tenosynovitis PLAN: Plan Elevate right upper extremity Continue 3 times per day Dial soap soaks with iodoform packing to the wounds Agree with broad-spectrum antibiotics Follow-up cultures Procedures Integumentary [id number]: [id number] Global Visit
[2024-05-25] MEDS: Clopidogrel Bisulfate 75 MG Tablet PO (11:30)
[2024-05-25 12:57] LABS: Bedside Glucose 128 mg/dL (74-106)
[2024-05-25] MEDS: Glucerna Shake 120 ML LIQUID PO (16:46)
[2024-05-25 17:44] LABS: Bedside Glucose 88 mg/dL (74-106)
--- NOTE | 2024-05-25 19:15 | CPS ---
Pt refusing to wear BiPAP tonight, says he'll wear oxygen if needed.
[2024-05-25] MEDS: Atorvastatin Calcium 40 MG Tablet PO (20:59)
[2024-05-25] MEDS: Mirtazapine 15 MG Tablet 45 MG PO (20:59)
[2024-05-25] MEDS: Insulin Lispro 100 UNIT/ML INSULN.PEN SC (21:04)
[2024-05-25 21:18] LABS: Bedside Glucose 166 mg/dL (74-106)
[2024-05-26] VITALS (16 sets, daily range): BP systolic 108–155; BP diastolic 62–90; PULSE 53–88; RESP 14–20; TEMP 36.2–36.7; O2SAT 91–100; BMI 37.9; BMI 38.0
[2024-05-26] MEDS: Acetaminophen 325 MG Tablet 650 MG PO (03:41)
[2024-05-26] MEDS: oxyCODONE 5 MG Tablet PO ×4 (03:41→21:02)
[2024-05-26 05:09] LABS: Absolute Neutrophil Count 1.7 X10^3/uL (2.0-7.7); Basophil# 0.02 X10^3/uL; Basophil% 0.5 % (0-1); Eosinophil# 0.17 X10^3/uL; Hematocrit 43.8 % (40-54); Hemoglobin 14.9 g/dL (13.0-16.5); Lymphocyte % 49.5 % (19-41); Mean Corpuscular Hgb 34.1 pg (27.0-32.0); Mean Corpuscular Volume 100.2 fL (80-94); Mean Platelet Vol. 10.4 fl (6.2-12.0); Monocyte# 0.25 X10^3/uL; Monocyte% 5.9 % (0-10); NRBC Flagged by Analyzer 0 % (0-5); Neutrophil % 40.1 % (47-70); Platelet Count 133 K/mm3 (150-450); RBC Distribution Width CV 12.8 % (11.6-14.6); RBC Distribution Width SD 47.8 fl (35.1-43.9); Red Blood Count 4.37 M/mm3 (4.6-6.2); White Blood Count 4.2 K/mm3 (4.4-11.0)
[2024-05-26 05:26] LABS: ALB/GLOB Ratio 1.3 RATIO (0.9-2.4); AST(SGOT) 34 U/L (15-37); Alanine Aminotransfer ALT/SGPT 52 U/L (16-61); Albumin, Serum 3.5 g/dL (3.2-5.0); Alkaline Phosphatase 76 U/L (45-117); Anion Gap 5 (5-15); BUN 12 mg/dL (7-18); BUN/Creat Ratio 13.7 RATIO (10-20); Calcium,Total 8.5 mg/dL (8.5-10.1); Chloride 106 mmol/L (98-107); Creatinine, Serum 0.88 mg/dL (0.70-1.30); EST Glomerular Filtration Rate 95 mL/min (>60); Est Glom Filt Rate - Afr Amer 115 mL/min (>60); Globulin 2.7 g/dL (2.2-4.2); Glucose 96 mg/dL (74-106); Potassium 3.4 mmol/L (3.5-5.1); Protein, Total 6.2 g/dL (6.4-8.2); Sodium Level 139 mmol/L (136-145)
[2024-05-26] MEDS: Piperacil/Tazobactam 3.375 GM in 0.9% Normal Saline (50mL MB+) 50 ML IV (05:37)
[2024-05-26] MEDS: Gabapentin 800 MG Tablet PO ×2 (06:28→21:02)
[2024-05-26] MEDS: Levothyroxine 75 MCG Tablet PO (06:28)
[2024-05-26] MEDS: Vancomycin HCl 2,000 MG in 0.9% Normal Saline (500mL Bag) 500 ML 250 MG IV (06:28)
[2024-05-26 06:56] LABS: Bedside Glucose 103 mg/dL (74-106)
[2024-05-26] MEDS: Ipratropium/Albuterol Sulfate 3 ML AMPUL.NEB INHALATION ×3 (07:20→19:36)
[2024-05-26] MEDS: Budesonide Respules 0.5 MG/2 ML AMPUL.NEB. INHALATION ×2 (07:21→19:36)
--- NOTE | 2024-05-26 07:30 | PN.HOSP_ITS ---
Reason for Visit Reason for Visit: Diagnoses Type 2 diabetes mellitus with diabetic polyneuropathy (05/23/24) Obesity, unspecified (05/23/24) Obstructive sleep apnea (adult) (pediatric) (05/23/24) Cutaneous abscess of right hand (05/23/24) Cellulitis of right upper limb (05/23/24) Unspecified synovitis and tenosynovitis, unspecified hand (05/23/24) Unspecified open wound of right hand, subsequent encounter (05/23/24) Tobacco use (05/23/24) alf (current) use of insulin (05/23/24) Subjective Subjective Patient overnight with increased pain he notes to his hands especially near the wrist in the center going midline approximately with sensation of increased swelling. Patient's wrist band on the right wrist is a little bit tight and snug compared to even the day prior. He denies any fever, chills, nausea, emesis. Patient originally had been on the OR schedule for today which was canceled therefore discussed plan to give diet back. Noted that plastic surgery would be in shortly with wound RN to evaluate the extremity and take down the dressing to which patient amenable. Patient denies abdominal pain, chest pain or dyspnea. Objective Data Objective Data Vital Signs: Vital Signs Temp Pulse Resp BP Pulse Ox O2 Del Method O2 Flow Rate 97.6 F L 62 16 132/70 H 91 Room Air 2 05/26/24 03:45 05/26/24 07:22 05/26/24 07:22 05/26/24 03:45 05/26/24 07:22 05/26/24 07:22 05/24/24 08:10 Oxygen Flow Rate (L/min) 2 Oxygen Delivery Method Room Air Weight: 256 lb 2.834 oz Body Mass Index (BMI) 37.9 Intake & Output: Intake and Output for Last 24 Hours 05/24/24 05/25/24 05/26/24 23:59 23:59 23:59 Intake Total 3205 / 3705 2174 / 2474 500 / 500 Balance 3205 / 3705 2174 / 2474 500 / 500 Lab / Micro Data 05/26/24 04:35 05/26/24 04:35 Labs: Laboratory Results - last 24 hr 05/25/24 12:33: POC Glucose 128 H 05/25/24 16:39: POC Glucose 88 05/25/24 20:58: POC Glucose 166 H 05/26/24 04:35: WBC 4.2 L, RBC 4.37 L, Hgb 14.9, Hct 43.8, MCV 100.2 H, MCH 34.1 H, MCHC 34.0, RDW Std Deviation 47.8 H, RDW Coeff of [place]umn 12.8, Plt Count 133 L, MPV 10.4, Immature Gran % (Auto) 0.000, Neut % (Auto) 40.1 L, Lymph % (Auto) 49.5 H, [place] % (Auto) 5.9, Eos % (Auto) 4.0, Baso % (Auto) 0.5, Absolute Neuts (auto) 1.7 L, Absolute Lymphs (auto) 2.10, Nucleated RBC % 0, Sodium 139, P otassium 3.4 L, Chloride 106, Carbon Dioxide 29.0, Anion Gap 5, BUN 12, Creatinine 0.88, Estim Creat Clear Calc 116.40, Est GFR (MDRD) Af Amer 115, Est GFR (MDRD) Non-Af 95, BUN/Creatinine Ratio 13.7, Glucose 96, Calcium 8.5, Total Bilirubin 0.60, AST 34, ALT 52, Alkaline Phosphatase 76, Total Protein 6.2 L, Albumin 3.5, Globulin 2.7, Albumin/Globulin Ratio 1.3 05/26/24 06:33: POC Glucose 103 Rhythm Strip Rhythm Strip: Sinus Rhythm Rate: 67 Ectopy: None Physical Exam Narrative Physical Examination: General: Awake, alert, oriented x 3 and cooperative, patient notes hand discomfort, more so now into the wrist moving approximately, increased welling, rating pain 10 out of 10. Skin: Normal color, normal turgor, no icterus, no cyanosis except for bilateral lower extremity venous stasis skin changes, right hand status with dressing in place, no drainage, does seem more edematous in the digits as well as in the ankle region with ID bracelet on noted to be tight compared to day prior. HEENT: AT/NC, EOMI, PERRLA, MMM. Lungs: CTA bilaterally, moderate effort, mild decrease BL bases, no rales, ronchi or wheezing. Heart: Regular rate and rhythm; no gallop, rub audible. Abdomen: Soft, obese, NTTP, ND, normal BS. Extremities: No cyanosis, no clubbing, no marked peripheral edema except expected mild edema to the right hand but not severe, moving fingers without issue, appropriately warm to touch. Neurological: Patient awake, alert, oriented as noted, cognitive function intact; pupils equally reactive to light and accommodation, cranial nerves grossly normal, moving all 4 extremities although some limitation given right hand recent intervention pain, strength mildly to moderately globally decreased. Psychiatric: Affect appears uncomfortable appearing, no acute evidence of depressive or anxiety feelings. Assessment & Plan Assessment/Plan (1) Cellulitis of hand, right: (2) Abscess of hand, right: PLAN: Plan The patient is a 58 y/o M w/ PMHx: Hypothyroidism, Obesity, HTN, HLD, CANDELARIA on BIPAP, Diabetes mellitus type II w/ chronic neuropathy, Tobacco use, COPD, CAD s/p PCI, Hx TIA/CVA, Hx Seizures, RLS, Anxiety and Depression, GERD w/ Hx GI bleed, recently diagnosed abscess of the Right hand with flexor tenosynovitis 3rd digit s/p surgical I&D by Dr. Edwards 04/27/24 with follow-up I&D by Dr. Edwards 04/05/24 who presents to the [facility] ED on 05/23/2024 with abscess/swelling to the fifth digit of the right hand. #1. Abscess/swelling to the right hand with associated cellulitis with concern for flexor tenosynovitis concurrently with recent acid-fast positive cultures during previous surgical interventions: Admitted to medical surgical floor, maintained on IV vancomycin and IV Zosyn, infectious disease and plastic surgery consulted, continued wound care/soaks/repacking per plastic surgery with also wound RN consulted, encourage continued elevation of the hands above heart when seated in bed, monitor erythema outline with VS checks, wound cultures pending with currently PCR mycobacterial positive culture pending, per discussion with plastic surgery likely will eventually need for definitive surgical intervention with potential amputation given serial representation with infection. 05/26/2024 CBC with WBC 4.2, human 14.9, platelet 133 without marked shift, improving. Awaiting ID evaluation 05/26/2024 with consideration for possible discharge once clinically appropriate although will need more definitive follow- up surgery per discussion with plastic surgery. 05/26/2024 pain regimen adjusted. 05/26/2024 increased pain to the wrist and some increased swelling to the digits but notably so in the wrist region as well, awaiting wound RN/plastic surgery takedown of the dressing for evaluation. Unfortunately given this pain especially in the more proximal aspect concern is tendon has been the issue and preference long-term for more definitive intervention. #2. Hypothyroidism with abnormal TSH: Admission TSH 6.790, follow-up free T4 normal 0.91. Encourage continued outpatient follow-up with repeat thyroid function studies in 6 to 8 weeks. #3. CAD: Status post PCI, continue baby aspirin, temporally upon admission held Plavix for operative intervention considerations pending plastic surgery evaluation but given no plan for current operative intervention resumed 05/25/2024, continued on statin, losartan, not on beta-coco therapy per current list, clarifying. #4. History TIA/CVA: Will continue aspirin, temporally held Plavix for operative intervention considerations pending plastic surgery evaluation but given no plans for current operative intervention resumed 05/25/2024, continued on statin, hypertensive regimen, diabetic regimen with adjustments as noted. #5. Diabetes mellitus type II with chronic neuropathy: Hold oral home regimen, continue home insulin regimen, ADA diet, accu checks w/ ISS, continue home gabapentin regimen. Magnesium level normal. #6. Chronic COPD: Will temporarily hold home inhalers in the interim transition to ATC budesonide therapy, PRN albuterol, HOB, IS parameters. #7. Hypertension: Continue home regimen including isosorbide, Lasix, losartan with hold parameters, PRN hydralazine. #8. Hyperlipidemia: We will continue patient on statin therapy. #9. Anxiety and depression: We will continue patient home Cymbalta and mirtazapine regimen #10. Tobacco Abuse: Encouraged cessation, inpatient consultation per RT, NR if desired. #11. Obesity: Weight loss and lifestyle changes encouraged. #12. GERD with history GI bleed: We will continue patient on PPI. #13. Chart reported history of seizures: Noted remote history of seizures, not on any anti-epileptic drugs, continue to monitor. #14. Restless leg syndrome: Per current list does not appear to be on medication, monitor and add if needed. #15. CANDELARIA: BiPAP nightly. #16. DVT prophylaxis: Lovenox. Charges/Coding Visit Charges Inpatient E&M: 82269 [facility] [[email or web address]] Hosp L3
--- NOTE | 2024-05-26 10:07 | PCM.PN.ID ---
Physical Exam Narrative Still with moderate amount of pain in hand, no fever, no n/v/d. Const alert and no apparent distress General Appearance: cooperative Resp normal air movement and clear to auscultation bilaterally Cardio regular rate and regular rhythm GI soft to palpation, non-tender and non-distended Skin Skin Narrative: R hand unwrapped, less red, no purulence ID ID: Route of nutrition/ use of supplements: [] Nutritional Intake: [] IV Site: [] Barr Catheter: [] Assessment & Plan Assessment/Plan (1) Abscess of hand, right: PLAN: presented 03/2024 with R middle finger MSSA abscess. Taken to OR 03/06/[address] Edwards. Discharged on 3 weeks po doxy. Readmitted 04/13 for ongoing exposed tendon, taken back to OR that day. Surg cx were neg. C/o diarrhea with doxy, discharged on po keflex. Remained on keflex, hand worsened over past 2-3 weeks with increased redness, swelling. Doxy restarted, repeat cx sent 05/05. AFB culture from that day now (+). Seen at wound center 05/23/24, I&D done, repeat wound cx and AFB pending. Cont empiric vanc/zosyn. Dr. Edwards following. PCR of mycobacterial (+) cx pending. Hand less red/swollen, no further purulence. Will follow
--- NOTE | 2024-05-26 12:04 | PN_ITS ---
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 He has not been on antibiotics to cover this bacteria. I spoke with infectious disease about the positive cultures and they are changing his regimen. Current encounter, 26 May 2024: Patient reports worsening hand pain today. He is having more pain in the small finger. Physical Exam Narrative Right upper Extremity Inspection: Palmar flap warm and viable and healed. Distal right long finger over P2 with full-thickness wound down to tendon. Slight purulence on rounds today. Right small finger volar surface on radial side of P1 open and with a small amount of purulence. No pain in the palm. Palpation: He does have pain with passive extension/excursion of the FDP at the DIP joint of the small finger and the long finger today. The pain is isolated on the volar surface of these fingers, and there is no pain in the carpal tunnel or in the palm. Exam is concerning for flexor tenosynovitis of the right small finger, as well as infection around the wound of the right long finger. Positive fusiform swelling of the right small finger and positive pain to palpation over the volar surface of this finger. Motor: Able to bend and extend all MP, PIP, and DIP joints. Sensory: Intact to light touch on the radial and ulnar borders. Vascular: Finger tips are warm and well perfused with <2 second capillary refill. Assessment & Plan Assessment/Plan (1) Flexor tenosynovitis of finger: PLAN: Taking emergently to the operating room for drainage of the tendon sheaths of the right long finger and the right small finger. 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 I talked the patient extensively about the risks of surgery, including bleeding, infection, damage to surrounding structures (especially nerves), surgical site dehiscence and wound formation, need for wound care, need for repeat operations, failure to obtain the desired result, DVT/PE, and the risks of anesthesia including . The benefits and alternatives of this surgery were also discussed. All of their questions were answered, and they agreed to proceed with surgery.
--- NOTE | 2024-05-26 12:14 | PCM.HP.STD ---
HPI - General General Date of Admission: 05/23/24 Chief Complaint: Abscess/Swelling of the 5th Digit of the Right Hand. HPI Narrative ONELIA REED, is a 58 M who presents with right hand flexor tenosynovitis. [facility]LY [facility] Medical History (Updated 05/26/24 @ 12:[address] Sergio Edwards MD) Flexor tenosynovitis of finger Open wound, hand Infected hand Insulin dependent diabetes mellitus Arthritis Kidney stone TIA (transient ischemic attack) Seizures Gastric reflux Hypertension History of CVA in adulthood Antiplatelet or antithrombotic long-term use Wears glasses No natural teeth Diabetes Thyroid disease High cholesterol Blackout History of GI bleed Smoker BiPAP (biphasic positive airway pressure) dependence Sleep apnea Shortness of breath on exertion Chronic cough History of edema Leg cramps History of stress test Cardiology follow-up encounter Elevated LFTs Back pain Dorsalgia of thoracolumbar region Patellofemoral arthritis of right knee Bilateral knee pain Situational syncope Chest pain, unspecified Type 2 diabetes mellitus Essential hypertension Pneumonia due to other streptococci Atherosclerosis of coronary artery of [place] heart without angina pectoris Right bundle-branch block Gastroesophageal reflux disease Hypertriglyceridemia Obstructive sleep apnea Body mass index (BMI) 35 or more Tobacco abuse COPD (chronic obstructive pulmonary disease) MASON (dyspnea on exertion) Morbid obesity due to excess calories Localized edema Long-term use of high-risk medication Hyperlipidemia Difficulty swallowing Stage 2 moderate COPD by GOLD classification Sinus drainage Home Medications ?Medication ?Instructions ?Recorded ?Last Taken ?Type albuterol sulfate 90 mcg/actuation 6.7 g inhalation PRN PRN Wheezing 12/06/14 05/04/24 History aerosol inhaler ergocalciferol (vitamin D2) 1,250 50,000 unit PO Q7D SUPPLEMENT 12/06/14 05/04/24 History mcg (50,000 unit) capsule fluticasone propionate 50 1 spray NASAL DAILY ALLERGIES 05/05/16 04/10/24 History mcg/actuation nasal spray,suspension aspirin 81 mg tablet,delayed 81 mg PO DAILY HEART 08/11/19 05/04/24 History release duloxetine 60 mg capsule,delayed 60 mg PO DAILY MOOD 08/11/19 05/04/24 History release levothyroxine 50 mcg tablet 75 mcg PO DAILY THYROID 08/11/19 05/05/24 History losartan 50 mg tablet 25 mg PO QDAY BLOOD PRESSURE 08/11/19 05/04/24 History mirtazapine 15 mg tablet 45 mg PO QHS SLEEP AND RLS 08/11/19 05/04/24 History multivitamin 1 cap PO DAILY SUPPLEMENT 08/11/19 05/04/24 History nitroglycerin 0.4 mg sublingual 0.4 mg sublingual ONCE PRN chest 08/11/19 Unknown History tablet (Nitrostat) pain budesonide-formoterol HFA 160 2 puff inhalation BID COPD #10.2 12/05/19 05/04/24 Rx mcg-4.5 mcg/actuation aerosol grams inhaler clopidogrel 75 mg tablet 75 mg PO QDAY BLOOD THINNER #90 12/29/19 05/04/24 Rx tabs furosemide 40 mg tablet (Lasix) 60 mg PO DAILY WATER PILL 11/15/20 05/04/24 History metformin 1,000 mg tablet 1,000 mg PO BID DIABETES 11/15/20 05/04/24 History isosorbide mononitrate 60 mg 30 mg (1/2 x 60 mg) PO BID HEART 12/03/21 05/05/24 Rx tablet,extended release 24 hr #90 tabs omeprazole 40 mg capsule,delayed 40 mg PO DAILY GERD 1 month #30 06/05/23 05/05/24 Rx release caps rosuvastatin 20 mg tablet 20 mg PO QHS CHOLESTEROL 1 month 06/05/23 05/04/24 Rx #30 tabs empagliflozin 25 mg tablet 25 mg PO DAILY DAIBETES #30 tabs 11/24/23 05/04/24 Rx (Jardiance) fluticasone fur. 100 mcg-umeclid 1 ea inhalation DAILY copd 03/07/24 05/05/24 History 62.5 mcg-vilant 25 mcg inhalat.powder (Trelegy Ellipta) gabapentin 800 mg tablet 800 mg PO TID pain 03/07/24 05/04/24 History dulaglutide 1.5 mg/0.5 mL 1.5 mg subcut MENON DIABETES 03/22/24 04/24/24 History subcutaneous pen injector (Trulicity) cephalexin 500 mg capsule 500 mg PO Q8H 7 days #21 caps 05/05/24 Unknown Rx cefadroxil 500 mg capsule 500 mg PO BID 10 days #20 caps 05/19/24 Unknown Rx doxycycline monohydrate 100 mg 100 mg PO BID 10 days #20 caps 05/19/24 Unknown Rx capsule Allergy/AdvReac Type Severity Reaction Status Date / Time No Known Allergies Allergy Verified 05/19/24 09:02 Family History Father CVA (cerebral vascular accident) Brother CAD (coronary artery disease) Diabetes Mother COPD (chronic obstructive pulmonary disease) Sarcoidosis Surgical History History of hand surgery History of cardiac catheterization S/P laparoscopic cholecystectomy H/O umbilical hernia repair History of coronary artery stent placement (~03/25/16) History of carpal tunnel surgery of right wrist History of left heart catheterization Social History household members: spouse current occupational status: disabled Smoking Status: Light Smoker (<10/day) Tobacco: How many years used: 30 second hand exposure: Yes alcohol intake: never substance use type: does not use caffeine: Yes Type: coffee Number of servings: 2 what type of physical activity do you participate in: none Vital Signs Vital Signs Vital Signs: 05/25/24 13:32 05/25/24 17:00 05/25/24 19:15 Temperature 97.7 F L Temperature Source Oral Pulse Rate 66 70 66 Pulse Strength Respiratory Rate 17 16 16 Respiratory Effort Respiratory Depth Respiratory Pattern Normal Normal Blood Pressure 123/71 H Blood Pressure Mean 88 Blood Pressure Source Monitor Blood Pressure Position Semi-Fowlers Blood Pressure Location Left Arm Pulse Ox 93 Oxygen Delivery Method Room Air 05/25/24 19:15 05/25/24 21:14 05/25/24 21:17 Temperature 97.7 F L Temperature Source Oral Pulse Rate 61 Pulse Strength Respiratory Rate 16 Respiratory Effort Normal Non-Labored Respiratory Depth Normal Respiratory Pattern Normal Blood Pressure 136/84 H Blood Pressure Mean 101 Blood Pressure Source Monitor Blood Pressure Position Sitting Blood Pressure Location Right Arm Pulse Ox 92 92 Oxygen Delivery Method Room Air Room Air 05/25/24 22:00 05/26/24 03:45 05/26/24 07:22 Temperature 97.6 F L Temperature Source Oral Pulse Rate 58 L 62 Pulse Strength Normal (2+) Respiratory Rate 16 16 Respiratory Effort Respiratory Depth Respiratory Pattern Normal Blood Pressure 132/70 H Blood Pressure Mean 90 Blood Pressure Source Monitor Blood Pressure Position Sitting Blood Pressure Location Right Arm Pulse Ox 92 Oxygen Delivery Method Room Air 05/26/24 07:22 05/26/24 07:53 05/26/24 08:00 Temperature 97.9 F Temperature Source Oral Pulse Rate 88 Pulse Strength Normal (2+) Respiratory Rate 18 Respiratory Effort Respiratory Depth Respiratory Pattern Blood Pressure 127/72 H Blood Pressure Mean 90 Blood Pressure Source Monitor Blood Pressure Position Sitting Blood Pressure Location Right Arm Pulse Ox 91 93 Oxygen Delivery Method Room Air Room Air 05/26/24 08:00 Temperature Temperature Source Pulse Rate Pulse Strength Respiratory Rate Respiratory Effort Normal Non-Labored Respiratory Depth Normal Respiratory Pattern Normal Blood Pressure Blood Pressure Mean Blood Pressure Source Blood Pressure Position Blood Pressure Location Pulse Ox Oxygen Delivery Method Room Air Weight Weight: 256 lb 2.834 oz Body Mass Index (BMI) 37.9 Physical Exam Narrative Right upper Extremity Inspection: Palmar flap warm and viable and healed. Distal right long finger over P2 with full-thickness wound down to tendon. Slight purulence on rounds today. Right small finger volar surface on radial side of P1 open and with a small amount of purulence. No pain in the palm. Palpation: He does have pain with passive extension/excursion of the FDP at the DIP joint of the small finger and the long finger today. The pain is isolated on the volar surface of these fingers, and there is no pain in the carpal tunnel or in the palm. Exam is concerning for flexor tenosynovitis of the right small finger, as well as infection around the wound of the right long finger. Positive fusiform swelling of the right small finger and positive pain to palpation over the volar surface of this finger. Motor: Able to bend and extend all MP, PIP, and DIP joints. Sensory: Intact to light touch on the radial and ulnar borders. Vascular: Finger tips are warm and well perfused with <2 second capillary refill. Results Lab / Micro Data 05/26/24 04:35 05/26/24 04:35 Labs: Laboratory Results - last 24 hr 05/25/24 12:33: POC Glucose 128 H 05/25/24 16:39: POC Glucose 88 05/25/24 20:58: POC Glucose 166 H 05/26/24 04:35: WBC 4.2 L, RBC 4.37 L, Hgb 14.9, Hct 43.8, MCV 100.2 H, MCH 34.1 H, MCHC 34.0, RDW Std Deviation 47.8 H, RDW Coeff of Autumn 12.8, Plt Count 133 L, MPV 10.4, Immature Gran % (Auto) 0.000, Neut % (Auto) 40.1 L, Lymph % (Auto) 49.5 H, [place] % (Auto) 5.9, Eos % (Auto) 4.0, Baso % (Auto) 0.5, Absolute Neuts (auto) 1.7 L, Absolute Lymphs (auto) 2.10, Nucleated RBC % 0, Sodium 139, Potassium 3.4 L, Chloride 106, Carbon Dioxide 29.0, Anion Gap 5, BUN 12, Creatinine 0.88, Estim Creat Clear Calc 116.40, Est GFR (MDRD) Af Amer 115, Est GFR (MDRD) Non-Af 95, BUN/Creatinine Ratio 13.7, Glucose 96, Calcium 8.5, Total Bilirubin 0.60, AST 34, ALT 52, Alkaline Phosphatase 76, Total Protein 6.2 L, Albumin 3.5, Globulin 2.7, Albumin/Globulin Ratio 1.3, TSH 5.480 H 05/26/24 06:33: POC Glucose 103 Rhythm Strip Rhythm Strip: Sinus Rhythm Rate: 67 Ectopy: None Assessment & Plan Assessment/Plan (1) Flexor tenosynovitis of finger: PLAN: Plan Taking emergently to the operating room for drainage of the tendon sheaths of the right long finger and the right small finger. Now that we have a bacteria to specifically treat (slow growing acid fast Mycobacterium abscessus), I'm hoping that we can clear this challenging infection with the new regimen of antibiotics. I talked the patient extensively about the risks of surgery, including bleeding, infection, damage to surrounding structures (especially nerves), surgical site dehiscence and wound formation, need for wound care, need for repeat operations, failure to obtain the desired result, DVT/PE, and the risks of anesthesia including . The benefits and alternatives of this surgery were also discussed. All of their questions were answered, and they agreed to proceed with surgery.
[2024-05-26 12:16] LABS: Bedside Glucose 94 mg/dL (74-106)
[2024-05-26] MEDS: Azithromycin 250 MG Tablet 500 MG PO (12:23)
[2024-05-26] MEDS: Linezolid 600 MG Tablet PO ×2 (12:23→21:08)
[2024-05-26] MEDS: Meropenem 1 GM in 0.9% Normal Saline (100mL MB+) 100 ML IV ×2 (12:23→21:08)
[2024-05-26] MEDS: WATER IV (12:36)
[2024-05-26] MEDS: AMIKACIN SULFATE IV (12:36)
[2024-05-26] MEDS: DEXTROSE 5% IV (12:36)
[2024-05-26 12:50] LABS: Hemoglobin A1c 5.6 % (3.8-5.6)
--- NOTE | 2024-05-26 12:56 | OP.PCM_ITS ---
Operative Report (Standard) Operative Information Date of Procedure: 05/26/24 Pre-Operative Diagnosis: Right small and right long finger flexor tenosynovitis Post-Operative Diagnosis: Same Surgery/Procedure Performed: 1) Incision and Drainage of flexor tendon sheath, right long finger (CPT: 44667) 2) Incision and Drainage of flexor tendon sheath, right small finger (CPT: 47124) dental insurance coordinator: Yes Cd Mixer Helper: Diana Smith Tasks completed by airplane first officer: Retracting Type of Anesthesia: General/Supplemental RN Documented Start/Stop Times: Operation Date: 05/26/24 15:25 Case Time Into Pre-Op 05/26/24 14:52 Procedure Start Time: 15:57 Procedure Stop Time: 16:56 Select all DRAINS/GRAFTS/IMPLANTS that apply: None Estimated Blood Loss: 10 cc Fluids Replaced: 500 cc LR Specimen collected: Yes Description of specimen(s) removed: Cultures from the flexor sheaths of the small and long fingers Description of surgery: Indications: Lisandro Miranda is a 58-year-old male with past medical history of COPD, tobacco use, diabetes, coronary artery disease, and CVA, as well as flexor tenosynovitis to the right long finger in March 2024 complicated by wound healing problems, complicated by multiple surgeries for closure of the volar wounds including flap reconstruction, complicated by recent abscess formation in the right volar finger distal to the flap as well as the right small finger, who is cultures from 05 May 2024 are now growing Mycobacterium, who is presenting today for operative incision and drainage of presumed right small finger flexor tenosynovitis and right long finger flexor tenosynovitis in the setting of a now subacute infection with acid-fast bacteria. Infectious disease has been involved throughout the process, and since the cultures are now growing Mycobacterium they are switching his antibiotic regimen as this could be the reason for his issues with healing and abscess formation. Patient understands the risk benefits and alternatives to surgery today. I talked him extensively about wound healing problems postoperatively and the need for repeat operations and wound care. He understands that he has a severe infection, and given the worsening pain in the right small finger and concerning signs for flexor tenosynovitis today on exam, this is an emergent operation. Procedure Details: Patient was correctly identified in preoperative holding and taken back to the operating room where he was administered general anesthesia. He was prepped and draped in sterile fashion and all proper timeouts were performed. A right upper extremity tourniquet was insufflated to 250 mmHg. I began the procedure by extending the volar long finger wound distally in an oblique direction radially towards the DIP. Care was taken to identify and protect the neurovascular bundle. The ulnar side of the previous rotation flap in the palm was also opened and dissection carried out down to the tendon at the A1 bruce level. The tendon and tendon sheath were identified, some viscous fluid was identified in the sheath and cultures were taken, and the tendon sheath was irrigated with copious amounts normal saline and Irrisept using an Angiocath from the A5 bruce region, through the wound, and into the palm. There was no purulence seen in the palm/extending proximally (this area was milked). Attention was then turned to the small finger where Shakira incisions were designed over the volar surface of the small finger and the tendon was open starting at the A1 bruce and then the skin over the volar surface of P1 as well as a transverse incision at the distal DIP crease. Care was taken to identify and protect the neurovascular bundles. The sheath was entered from release of the A1 bruce on the right small finger and through the A5 bruce over the DIP joint. Fluid within the small finger flexor tendon sheath was cultured as was a small piece of A1 bruce tissue. The wound was irrigated with copious months normal saline and Irrisept, and an Angiocath was used to irrigate the tendon sheath from proximal to distal with copious amounts normal saline. Again, at this level, there was no purulence seen in the palm/extending proximally (this area was milked). We then let down the tourniquet and obtained hemostasis with bipolar electrocautery. A 10 cc block of 0.25% Marcaine with 1:200,000 epinephrine was used for digital blocks and around the incision for hemostasis and pain control. The patient tolerated the procedure well. The wounds were closed partially with 1 interrupted nylon 3-0 suture and the rest of them were packed with iodoform gauze. His hand was wrapped in a dry dressing and Coban loosely. He was awakened and taken the PACU in stable condition. Tourniquet time 15:57 to 16:42 Post-operative Plan: Continue broad-spectrum antibiotics per infectious disease for the Mycobacterium. Return to the OR tomorrow for second look and repeat washout (n.p.o. midnight). Anticipate continued 3 times per day Dial soap soaks. Surgical Findings: Viscous fluid (small amounts) within the sheath of the right small finger and around the tendon of the right long finger, but not proximal to this region, consistent with synovitis. Complications Complications: No Admit VTE Documentation VTE Present on Admission: Yes
[2024-05-26] MEDS: 0.9% Saline Lock 10 ML Syringe IV ×2 (13:56→23:06)
[2024-05-26] MEDS: Morphine 2 MG/ML Syringe IV ×2 (13:56→23:06)
--- NOTE | 2024-05-26 15:17 | PRE.ANES_ITS ---
ASA Classification* ASA Classification ASA Classification: 3 and E Assessment & Plan Anesthesia* Anesthesia Assessment Anesthesia Assessment: Discussed sedation and/or anesthesia options, risks, benefits, and alternatives with patient/parents/legal guardian/POA. Questions invited. The patient/parents/legal guardian/POA seems to understand and agrees to proceed with anesthesia plan. Reviewed the physical assessment, medical history, allergy history and patient home medications list prior to surgery/procedure/anesthetic and documented any changes. Performed airway and anesthesia risk assessments. Anesthesia Type Anesthesia Type: General History Source History Obtained from:: Patient and Chart Anesthesia Focused Assessment* Temperature: 97.9 F Pulse Rate: 59 Blood Pressure: 127/72 Respiratory Rate: 16 Pulse Ox: 93 Oxygen Delivery Method: Room Air Oxygen Flow Rate (L/min): 2 Airway Assessment Mouth opens: 2 cm Mallampati Score: III Teeth Condition: Missing (Patient is edentulous.) Neck Range of motion (ROM): Limited ROM (Somewhat decreased extension) Focused Labs Anesthesia Preop lab: CBC WBC 4.2 K/mm3 (4.4-11.0) L 05/26/24 04:35 RBC 4.37 M/mm3 (4.6-6.2) L 05/26/24 04:35 Hgb 14.9 g/dL (13.0-16.5) 05/26/24 04:35 Hct 43.8 % (40-54) 05/26/24 04:35 Plt Count 133 K/mm3 (150-450) L 05/26/24 04:35 CHEMISTRY Potassium 3.4 mmol/L (3.5-5.1) L 05/26/24 04:35 Sodium 139 mmol/L (136-145) 05/26/24 04:35 Magnesium 2.2 mg/dL (1.6-2.6) 05/25/24 05:50 Phosphorus 4.6 mg/dL (2.5-4.9) 05/25/24 05:50 BUN 12 mg/dL (7-18) 05/26/24 04:35 Creatinine 0.88 mg/dL (0.70-1.30) 05/26/24 04:35 Glucose 96 mg/dL (74-106) 05/26/24 04:35 POC Glucose 94 mg/dL (74-106) 05/26/24 11:49 TSH 5.480 uIU/mL (0.358-3.740) H 05/26/24 04:35 COAG PT 14.2 SECONDS (11.7-14.9) 03/06/24 15:50 Pre-Assessment Diagnosis/Proposed Procedure Planned Operative Procedure(s): Incision and drainage right hand small and long fingers and others as needed Anesthesia History Anesthesia History - international representative: Anesthesia History - international representative Hx Hospitalization Yes 05/04/24 08:59 Any Problems With Anesthesia No 05/23/24 22:37 Cholinesterase deficiency No 05/23/24 22:37 You/Your Family Experience No 05/23/24 22:37 fever (hyperthermia) with Relationship Recent Exposure to Contagious No 05/23/24 22:37 Disease Does patient have nerve No 05/23/24 22:37 stimulator Patient instructed to have No 05/23/24 22:37 device shut off --Does patient have Pacemaker or ICD? When Was Last Pacemaker Check QUESTION #4 FULL TEXT: You/Your Family Experience fever (hyperthermia) with Anesthesia Last Oral Intake Last Oral intake: Last Oral Intake NPO since Meds taken in AM with sips of water? Meds patient instructed to take am of surgery Any additional information?: Yes NPO since: 00:00 PONV PONV - international representative: PONV - international representative Female HX of Motion Sickness HX of N/V After Surgery Non-Smoker Duration of Surgery greater than 60 minutes Number of Risk Factors PONV Score Height & Weight Height & Weight: Anesthesia: Height & Weight Height 5 ft 9 in 05/24/24 11:46 Weight: 116.2 kg 05/26/24 06:00 Body Mass Index (BMI) 37.9 05/26/24 06:00 Respiratory Assessment Respiratory Assessment - international representative: Respiratory Tract Infection Hx - international representative Hx Respiratory Tract Infection No 05/23/24 22:37 STOP Sleep Apnea STOP Sleep Apnea - international representative: STOP Sleep Apnea - international representative Hx Hypertension Yes 05/23/24 22:33 Hx Sleep Apnea Yes 05/23/24 22:33 CPAP Yes 05/23/24 22:33 BIPAP No 05/23/24 22:33 Do you snore loudly (louder than talking or can be heard Do you often feel tired/ fatigued/ sleepy during daytime? Has anyone observed you stop breathing during sleep? STOP Results Positive 05/23/24 22:33 QUESTION #5 FULL TEXT : Do you snore loudly (louder than talking or can be heard through closed doors)? Tobacco Use History Tobacco Use History - international representative: Tobacco Use History - international representative Tobacco Use Smoking Status Light Smoker (<10/day) 05/24/24 08:10 Hx Tobacco Use Yes 05/23/24 22:33 Years Smoking Packs Smoked per Day Smoking Cessation Date was within the last 15 years Hx Smoking Cessation Date Hx Smoking Cessation No 05/23/24 22:33 Counseling Hematologic Medial History Hematologic Hx - international representative: Hematologic Medical Hx - documentation coordinator Hx of Blood Transfusion No 05/23/24 22:33 Hx of Transfusion in last 3 No 05/23/24 22:33 Months Date of Last Transfusion (if within last 3 months) Ever experience any problems No 05/23/24 22:33 with transfusion(s)? Specify any problems Hx of Preganancy in last 3 N/A 05/23/24 22:33 Months Nurse Filling Out Transfusion DREDICK 05/23/24 22:33 & Questions: Date: 05/23/24 05/23/24 22:33 Time: 22:34 05/23/24 22:33 Patient unable to answer at this time (ie. confused, unrespo /Reproduction History /Reproductive History - international representative: /Reproductive Hx- international representative Hx Now No 05/23/24 22:37 Gestational Age (in weeks): EDC: Hx Hx Para Hx Section SAB No 05/23/24 22:37 Active Medications Active Medications: Current Medications Generic Name Dose Route Start Last Admin Trade Name Freq PRN Reason Stop Dose Admin Acetaminophen 650 mg 05/23/24 22:26 05/26/24 03:41 Acetaminophen 325 Mg Tablet PO 650 mg Q6H PRN PRN Administration Pain 1-5/10 Or Fever>100.7 Al Hydroxide/Mg Hydroxide 30 ml 05/23/24 22:26 Mag Hydrox/Al Hydrox/Simeth 30 Ml Udc PO Q6H PRN PRN Gastric Burning Albuterol Sulfate 2.5 mg 05/23/24 22:26 Albuterol 2.5 Mg/3 Ml Vial.Neb. INHALATION Q4H PRN PRN Wheezing Albuterol/Ipratropium 3 ml 05/24/24 00:00 05/26/24 13:15 Ipratropium/Albuterol Sulfate 3 Ml Ampul.Neb INHALATION 3 ml Q6HWA.RT JAMES Administration Amikacin Protocol 1 each 05/26/24 11:40 Amikacin Iv-Pharmacy To Dose IV PRN PRN Rx to Dose Protocol Ascorbic Acid 1,000 mg 05/24/24 08:00 05/26/24 11:11 Ascorbic Acid 500 Mg Tablet PO Not Given BIDCM JAMES Aspirin 81 mg 05/24/24 08:00 05/26/24 11:10 Aspirin E.C. 81 Mg Tablet PO Not Given DAILYCM JAMES Atorvastatin Calcium 40 mg 05/23/24 22:26 05/25/24 20:59 Atorvastatin Calcium 40 Mg Tablet PO 40 mg QHS JAMES Administration Azithromycin 500 mg 05/26/24 11:40 05/26/24 12:23 Azithromycin 250 Mg Tablet PO 500 mg Q24 JAMES Administration Budesonide 0.5 mg 05/24/24 06:00 05/26/24 07:21 Budesonide Respules 0.5 Mg/2 Ml Ampul.Neb. INHALATION 0.5 mg Q12H.RT JAMES Administration Clopidogrel Bisulfate 75 mg 05/25/24 10:00 05/26/24 11:12 Clopidogrel Bisulfate 75 Mg Tablet PO Not Given DAILY JAMES Diphenoxylate HCl/Atropine 2 tablet 05/23/24 22:26 Diphenoxylate/Atrop 1 Tablet PO TID PRN PRN diarrhea Duloxetine HCl 60 mg 05/24/24 10:00 05/26/24 11:11 Duloxetine Hcl 60 Mg Capsule PO Not Given DAILY [facility] Enoxaparin Sodium 40 mg 05/24/24 10:00 05/26/24 11:12 Enoxaparin 40 Mg/0.4 Ml Syringe SC Not Given DAILY JAMES Ergocalciferol 1.25 mg 05/24/24 10:00 05/24/24 12:10 Ergocalciferol 1.25 Mg (50, 000 Unit) Capsule PO 1.25 mg Tu@1000 JAMES Administration Fluticasone Propionate 1 spray 05/24/24 10:00 05/26/24 08:10 Fluticasone 0.05% 1 [facility] Nasal.Sry NASAL Not Given DAILY [facility] Furosemide 60 mg 05/24/24 10:00 05/26/24 11:12 Furosemide 20 Mg Tablet PO Not Given DAILY [facility] Protocol Gabapentin 800 mg 05/23/24 22:26 05/26/24 13:23 Gabapentin 800 Mg Tablet PO Not Given TID JAMES Glucagon 1 mg 05/23/24 22:26 Glucagon 1 Mg/Ml Syringe IM X1 PRN HYPOGLYCEMIA Protocol Dextrose 250 mls @ 0 mls/hr 05/23/24 22:26 Dextrose 10%-Water IV .Q0M PRN HYPOGLYCEMIA Protocol As Directed Sodium Chloride 100 mls @ 15 mls/hr 05/23/24 22:27 IV .Q6H40M PRN Saline Flush Sodium Chloride 100 mls @ 15 mls/hr 05/23/24 22:27 IV .Q6H40M PRN Additional IVPB Infusion Meropenem 1 gm/ Sodium 120 mls @ 33 mls/hr 05/26/24 11:40 05/26/24 13:23 Chloride IV Not Given Q8 [facility] Amikacin Sulfate 1,325 mg/ 505.3 mls @ 505.3 mls/hr 05/26/24 12:30 05/26/24 13:57 Dextrose IV Infused Q24H JAMES Infusion Insulin Human Lispro 0 unit 05/24/24 11:00 05/26/24 11:50 Insulin Lispro 100 Unit/Ml Insuln.Pen SC Not Given ACHS [facility] Protocol Isosorbide Mononitrate 30 mg 05/23/24 22:26 05/26/24 11:12 Isosorbide Mononitrate 30 Mg Tablet PO Not Given BID [facility] Protocol Levothyroxine Sodium 75 mcg 05/24/24 06:00 05/26/24 06:28 Levothyroxine 75 Mcg Tablet PO 75 mcg 0600 JAMES Administration Linezolid 600 mg 05/26/24 11:40 05/26/24 12:23 Linezolid 600 Mg Tablet PO 600 mg BID JAMES Administration Losartan Potassium 25 mg 05/24/24 10:00 05/26/24 11:11 Losartan Potassium 25 Mg Tablet PO Not Given DAILY [facility] Protocol Magnesium Hydroxide 30 ml 05/23/24 22:26 Magnesium Hydroxide 30 Ml Udc PO DAILY PRN PRN Constipation Melatonin 3 mg 05/23/24 22:26 Melatonin 3 Mg Tablet PO QHS PRN PRN INSOMNIA Mirtazapine 45 mg 05/23/24 22:26 05/25/24 20:59 Mirtazapine 15 Mg Tablet PO 45 mg QHS JAMES Administration Morphine Sulfate 2 mg 05/26/24 09:45 05/26/24 13:56 Morphine 2 Mg/Ml Syringe IV 2 mg Q3H PRN PRN Administration pain 6-10, breakthrough Multivitamins 1 tablet 05/24/24 08:00 05/26/24 11:11 Multivitamins,Therapeutic [facility] Nicotine 14 mg 05/24/24 10:00 05/25/24 21:03 Nicotine 14 Mg Patch TD 14 mg DAILY JAMES Administration Nitroglycerin 0.4 mg 05/23/24 22:26 Nitroglycerin (Inpatient Use) 0.4 Mg Tab.Subl SL Q5M PRN chest pain Nutritional Formula (Lactose Free) 120 ml 05/24/24 08:00 05/26/24 11:32 Glucerna Shake 120 Ml Liquid PO Not Given TIDCM [facility] Ondansetron HCl 4 mg 05/23/24 22:26 Ondansetron 4 Mg/2 Ml Vial IV Q8H PRN PRN NAUSEA/VOMITING Oxycodone HCl 5 mg 05/23/24 22:26 05/26/24 07:34 Oxycodone 5 Mg Tablet PO 5 mg Q4H PRN PRN Administration Pain Score 6-10 Pantoprazole Sodium 40 mg 05/24/24 10:00 05/26/24 11:12 Pantoprazole Sodium 40 Mg Tablet PO Not Given DAILY [facility] Sodium Chloride 10 - 40 ml 05/23/24 22:27 05/26/24 13:56 0.9% Saline Lock 10 Ml Syringe IV 10 ml UD PRN Administration SALINE FLUSH Zinc Sulfate 50 mg 05/24/24 10:00 05/26/24 11:12 Zinc Sulfate 50 Mg Zinc (220 Mg) Oral Capsule PO Not Given DAILY [facility] PFSH Medical History Flexor tenosynovitis of finger Open wound, hand Infected hand Insulin dependent diabetes mellitus Arthritis Kidney stone TIA (transient ischemic attack) Seizures Gastric reflux Hypertension History of CVA in adulthood Antiplatelet or antithrombotic long-term use Wears glasses No natural teeth Diabetes Thyroid disease High cholesterol Blackout History of GI bleed Smoker BiPAP (biphasic positive airway pressure) dependence Sleep apnea Shortness of breath on exertion Chronic cough History of edema Leg cramps History of stress test Cardiology follow-up encounter Elevated LFTs Back pain Dorsalgia of thoracolumbar region Patellofemoral arthritis of right knee Bilateral knee pain Situational syncope Chest pain, unspecified Type 2 diabetes mellitus Essential hypertension Pneumonia due to other streptococci Atherosclerosis of coronary artery of [place] heart without angina pectoris Right bundle-branch block Gastroesophageal reflux disease Hypertriglyceridemia Obstructive sleep apnea Body mass index (BMI) 35 or more Tobacco abuse COPD (chronic obstructive pulmonary disease) MASON (dyspnea on exertion) Morbid obesity due to excess calories Localized edema Long-term use of high-risk medication Hyperlipidemia Difficulty swallowing Stage 2 moderate COPD by GOLD classification Sinus drainage Home Medications ?Medication ?Instructions ?Recorded ?Last Taken ?Type albuterol sulfate 90 mcg/actuation 6.7 g inhalation PRN PRN Wheezing 12/06/14 05/04/24 History aerosol inhaler ergocalciferol (vitamin D2) 1,250 50,000 unit PO Q7D SUPPLEMENT 12/06/14 05/04/24 History mcg (50,000 unit) capsule fluticasone propionate 50 1 spray NASAL DAILY ALLERGIES 05/05/16 04/10/24 History mcg/actuation nasal spray,suspension aspirin 81 mg tablet,delayed 81 mg PO DAILY HEART 08/11/19 05/04/24 History release duloxetine 60 mg capsule,delayed 60 mg PO DAILY MOOD 08/11/19 05/04/24 History release levothyroxine 50 mcg tablet 75 mcg PO DAILY THYROID 08/11/19 05/05/24 History losartan 50 mg tablet 25 mg PO QDAY BLOOD PRESSURE 08/11/19 05/04/24 History mirtazapine 15 mg tablet 45 mg PO QHS SLEEP AND RLS 08/11/19 05/04/24 History multivitamin 1 cap PO DAILY SUPPLEMENT 08/11/19 05/04/24 History nitroglycerin 0.4 mg sublingual 0.4 mg sublingual ONCE PRN chest 08/11/19 Unknown History tablet (Nitrostat) pain budesonide-formoterol HFA 160 2 puff inhalation BID COPD #10.2 12/05/19 05/04/24 Rx mcg-4.5 mcg/actuation aerosol grams inhaler clopidogrel 75 mg tablet 75 mg PO QDAY BLOOD THINNER #90 12/29/19 05/04/24 Rx tabs furosemide 40 mg tablet (Lasix) 60 mg PO DAILY WATER PILL 11/15/20 05/04/24 History metformin 1,000 mg tablet 1,000 mg PO BID DIABETES 11/15/20 05/04/24 History isosorbide mononitrate 60 mg 30 mg (1/2 x 60 mg) PO BID HEART 12/03/21 05/05/24 Rx tablet,extended release 24 hr #90 tabs omeprazole 40 mg capsule,delayed 40 mg PO DAILY GERD 1 month #30 06/05/23 05/05/24 Rx release caps rosuvastatin 20 mg tablet 20 mg PO QHS CHOLESTEROL 1 month 06/05/23 05/04/24 Rx #30 tabs empagliflozin 25 mg tablet 25 mg PO DAILY DAIBETES #30 tabs 11/24/23 05/04/24 Rx (Jardiance) fluticasone fur. 100 mcg-umeclid 1 ea inhalation DAILY copd 03/07/24 05/05/24 History 62.5 mcg-vilant 25 mcg inhalat.powder (Trelegy Ellipta) gabapentin 800 mg tablet 800 mg PO TID pain 03/07/24 05/04/24 History dulaglutide 1.5 mg/0.5 mL 1.5 mg subcut MENON DIABETES 03/22/24 04/24/24 History subcutaneous pen injector (Trulicity) cephalexin 500 mg capsule 500 mg PO Q8H 7 days #21 caps 05/05/24 Unknown Rx cefadroxil 500 mg capsule 500 mg PO BID 10 days #20 caps 05/19/24 Unknown Rx doxycycline monohydrate 100 mg 100 mg PO BID 10 days #20 caps 05/19/24 Unknown Rx capsule Allergy/AdvReac Type Severity Reaction Status Date / Time No Known Allergies Allergy Verified 05/19/24 09:02 Family History Father CVA (cerebral vascular accident) Brother CAD (coronary artery disease) Diabetes Mother COPD (chronic obstructive pulmonary disease) Sarcoidosis Surgical History History of hand surgery History of cardiac catheterization S/P laparoscopic cholecystectomy H/O umbilical hernia repair History of coronary artery stent placement (~03/25/16) History of carpal tunnel surgery of right wrist History of left heart catheterization Social History household members: spouse current occupational status: disabled Smoking Status: Light Smoker (<10/day) Tobacco: How many years used: 30 second hand exposure: Yes alcohol intake: never substance use type: does not use caffeine: Yes Type: coffee Number of servings: 2 what type of physical activity do you participate in: none Review of Systems (Anesthesia) ROS Narrative System reviewed and no additional complaints, except as documented.
--- NOTE | 2024-05-26 16:39 | PCM.RX.CS ---
Consult Antibiotic Management Pharmacy has been consulted to manage selected antibiotic: Other (AMIKACIN) Suspected Infection Suspected Infection: Skin/Soft tissue Prior Doses of Antibiotics Prior Doses of Antibiotics Received/Current Regimen: Amikacin, meropenem, azithromycin, zyvox Labs Labs: Sodium 139 mmol/L (136-145) 05/26/24 04:35 Potassium 3.4 mmol/L (3.5-5.1) L 05/26/24 04:35 Chloride 106 mmol/L (98-107) 05/26/24 04:35 Carbon Dioxide 29.0 mmol/L (21.0-32.0) 05/26/24 04:35 Anion Gap 5 (5-15) 05/26/24 04:35 BUN 12 mg/dL (7-18) 05/26/24 04:35 Creatinine 0.88 mg/dL (0.70-1.30) 05/26/24 04:35 Est GFR (MDRD) Af Amer 115 mL/min (>60) 05/26/24 04:35 Est GFR (MDRD) Non-Af 95 mL/min (>60) 05/26/24 04:35 BUN/Creatinine Ratio 13.7 RATIO (10-20) 05/26/24 04:35 Glucose 96 mg/dL (74-106) 05/26/24 04:35 Vancomycin Trough 26.2 ug/mL (5.0-15.0) H 05/24/24 21:54 Random Vancomycin 13.8 ug/mL (0.0-15.0) 05/25/24 05:50 Dosing Weight Weight used for dosin kg Estimated Creatinine Clearance Estimated Creatinine Clearance: ~116 Pharmacy Plan for Drug Dosing Pharmacy Plan for Drug Dosing: Amikacin 1325 mg Q24H based on adjusted body weight of 89 kg. Random level ordered for 10 hours after first dose, further dosing based on results of level. This lab value is a send out to [facility]. After discussion with laboratory and infectious disease expect the level to return 1-3 days after it is sent, but continue dosing of 1325 mg Q24H in the meantime. Pharmacy Service will continue to monitor and adjust dosing as required. Follow-Up Labs Follow-Up Labs: Trough: Other (Amikacin random) Date/Time Labs Ordered Labs to be done on [date and time ordered]: 05/26/24 @ 9696
[2024-05-26] MEDS: Bupiv/Epi 0.25% 30 ML Vial (17:06)
--- NOTE | 2024-05-26 17:13 | PCM.POST.ANE ---
Anesthesia: Postop Eval I Current Vital Signs Temperature: 97.1 F Pulse Rate: 60 Blood Pressure: 154/67 Respiratory Rate: 16 Pulse Ox: 98 Oxygen Delivery Method: Room Air Assessment Airway patent: Yes Spontaneous unlabored respirations: Yes Mental status: Awake and Calm nausea: No Vomiting: No Anesthesia Complication: No Fluid Hydration Crystalloid volume administer (ml): 500 Total IV fluid infused: 500 Progress Note Anesthesia document: Postop Eval 1 completed: Yes
[2024-05-26 18:31] LABS: Bedside Glucose 86 mg/dL (74-106)
--- NOTE | 2024-05-26 18:37 | POSTOPAN2_ITS ---
Anesthesia Postop Eval I Sum Postop Eval Completion status Anesthesia document: Postop Eval 1 completed: Yes Anesthesia Postop Eval I Summary Anesthesia Postop Eval I Summary: Anesthesia Postop Eval I: Assessment Summary Airway patent Yes 05/26/24 17:13 [email or web address] Spontaneous unlabored Yes 05/26/24 17:13 BAG [email or web address] respirations Mental status Awake,Calm 05/26/24 17:13 BAG [email or web address] nausea No 05/26/24 17:13 BAG [email or web address] Vomiting No 05/26/24 17:13 BAG [email or web address] Anesthesia Postop Eval I: Fluid Summary Crystalloid volume administer 500 05/26/24 17:13 BAG [email or web address] (ml) Colloids volume administered ( ml) Blood Product volume administered (ml) Total IV fluid infused 500 05/26/24 17:13 BAG [email or web address] Anesthesia Postop Eval I: Summary Notes Anesthesia Complication No 05/26/24 17:13 BAG [email or web address].POP Anesthesia Complication Comment: Post-operative progress note Anesthesia: Postop Eval II Evaluation Mental status: Awake Pain Level: 3 nausea: No Vomiting: No
--- NOTE | 2024-05-26 18:37 | PCM.POSTANE2 ---
Anesthesia Postop Eval I Sum Postop Eval Completion status Anesthesia document: Postop Eval 1 completed: Yes Anesthesia Postop Eval I Summary Anesthesia Postop Eval I Summary: Anesthesia Postop Eval I: Assessment Summary Airway patent Yes 05/26/24 17:13 POPULATION HEALTH MANAGER.NIVIALOU Spontaneous unlabored Yes 05/26/24 17:13 POPULATION HEALTH MANAGER.POP respirations Mental status Awake,Calm 05/26/24 17:13 POPULATION HEALTH MANAGER.NIVIALOU nausea No 05/26/24 17:13 POPULATION HEALTH MANAGER.NIVIALOU Vomiting No 05/26/24 17:13 POPULATION HEALTH MANAGER.JBLOU Anesthesia Postop Eval I: Fluid Summary Crystalloid volume administer 500 05/26/24 17:13 POPULATION HEALTH MANAGER.JBLOU (ml) Colloids volume administered ( ml) Blood Product volume administered (ml) Total IV fluid infused 500 05/26/24 17:13 POPULATION HEALTH MANAGER.NIVIALOU Anesthesia Postop Eval I: Summary Notes Anesthesia Complication No 05/26/24 17:13 POPULATION HEALTH MANAGER.POP Anesthesia Complication Comment: Post-operative progress note Anesthesia: Postop Eval II Evaluation Mental status: Awake Pain Level: 3 nausea: No Vomiting: No
[2024-05-26] MEDS: Isosorbide Mononitrate 30 MG Tablet PO (21:03)
[2024-05-26] MEDS: Lactobacillis Acidophilus 1 CAP PO (21:03)
[2024-05-26] MEDS: Atorvastatin Calcium 40 MG Tablet PO (21:03)
[2024-05-26 21:44] LABS: Bedside Glucose 135 mg/dL (74-106)
[2024-05-27] VITALS (19 sets, daily range): BP systolic 100–139; BP diastolic 60–100; PULSE 51–78; RESP 16–18; TEMP 36.4–36.7; O2SAT 92–100; BMI 38.0
[2024-05-27] MEDS: oxyCODONE 5 MG Tablet PO (01:39)
[2024-05-27] MEDS: Morphine 2 MG/ML Syringe IV ×2 (02:56→06:14)
[2024-05-27] MEDS: 0.9% Saline Lock 10 ML Syringe IV ×3 (02:56→07:22)
[2024-05-27 04:51] LABS: Absolute Lymphocyte Count 2.76 X10^3/uL (0.83-4.51); Basophil# 0.03 X10^3/uL; Basophil% 0.5 % (0-1); Eosinophil# 0.25 X10^3/uL; Eosinophils% 4.6 % (0-5); Hemoglobin 14.6 g/dL (13.0-16.5); Lymphocyte # 2.76 X10^3/ul (0.83-4.51); Lymphocyte % 50.4 % (19-41); Mean Corpuscular Hgb 34.3 pg (27.0-32.0); Mean Corpuscular Volume 100.9 fL (80-94); Mean Platelet Vol. 10.5 fl (6.2-12.0); Monocyte% 7.3 % (0-10); NRBC Flagged by Analyzer 0 % (0-5); Neutrophil # 2.03 X10^3/uL (2.7-7.7); Platelet Count 143 K/mm3 (150-450); RBC Distribution Width SD 48.3 fl (35.1-43.9); Red Blood Count 4.26 M/mm3 (4.6-6.2); White Blood Count 5.5 K/mm3 (4.4-11.0)
[2024-05-27] MEDS: Acetaminophen 325 MG Tablet 650 MG PO ×2 (05:01→22:28)
[2024-05-27] MEDS: Gabapentin 800 MG Tablet PO ×2 (05:02→21:03)
[2024-05-27 05:17] LABS: ALB/GLOB Ratio 1.4 RATIO (0.9-2.4); AST(SGOT) 42 U/L (15-37); Alanine Aminotransfer ALT/SGPT 55 U/L (16-61); Albumin, Serum 3.8 g/dL (3.2-5.0); Alkaline Phosphatase 74 U/L (45-117); Anion Gap 2 (5-15); BUN 9 mg/dL (7-18); BUN/Creat Ratio 10.1 RATIO (10-20); Calcium,Total 8.7 mg/dL (8.5-10.1); Chloride 106 mmol/L (98-107); Creatinine, Serum 0.89 mg/dL (0.70-1.30); EST Glomerular Filtration Rate 94 mL/min (>60); Est Glom Filt Rate - Afr Amer 114 mL/min (>60); Estimated Creatinine Clearance 115.15 ml/min; Globulin 2.7 g/dL (2.2-4.2); Glucose 92 mg/dL (74-106); Protein, Total 6.5 g/dL (6.4-8.2); Sodium Level 136 mmol/L (136-145)
[2024-05-27] MEDS: Meropenem 1 GM in 0.9% Normal Saline (100mL MB+) 100 ML IV ×3 (05:56→21:02)
--- NOTE | 2024-05-27 06:46 | PCM.PN.HOSP ---
Reason for Visit Reason for Visit: Diagnoses Type 2 diabetes mellitus with diabetic polyneuropathy (05/23/24) Obesity, unspecified (05/23/24) Obstructive sleep apnea (adult) (pediatric) (05/23/24) Cutaneous abscess of right hand (05/23/24) Cellulitis of right upper limb (05/23/24) Unspecified synovitis and tenosynovitis, unspecified hand (05/23/24) Unspecified open wound of right hand, subsequent encounter (05/23/24) Tobacco use (05/23/24) [facility] (current) use of insulin (05/23/24) Subjective Subjective Patient overnight with increased significant pain ongoing status post recent OR the day prior with dressing change this morning with significant bleeding per discussion with wound RN. Discussed with patient and altered pain regimen increasing his oral and changing Dilaudid which she notes helped this morning and will continue to use and notify staff if not effective. Discussed plan of care which included to return to OR for ongoing washout and as noted significant antibiotic therapy changed which she is aware. Discussed plan of care given ongoing significant bleeding to temporally hold his chemoprophylaxis and his Plavix temporarily. He notes pain through the night had nearly been constant 10 out of 10 to the right hand, throbbing and aching, sharp stabbing with activity but did improve following recent medication changes with Dilaudid administration recently. Patient denies fevers, chills, nausea, emesis, abdominal pain, chest pain or dyspnea. Objective Data Objective Data Vital Signs: Vital Signs Temp Pulse Resp BP Pulse Ox O2 Del Method O2 Flow Rate 97.9 F 61 18 106/73 95 Room Air 2 05/27/24 06:20 05/27/24 06:20 05/27/24 06:20 05/27/24 06:20 05/27/24 06:20 05/27/24 06:20 05/26/24 18:25 Oxygen Flow Rate (L/min) 2 Oxygen Delivery Method Room Air Weight: 256 lb 6.362 oz Body Mass Index (BMI) 38.0 Intake & Output: Intake and Output for Last 24 Hours 05/25/24 05/26/24 05/27/24 23:59 23:59 23:59 Intake Total 2174 / 2474 2715.3 / 2715.3 150 / 150 Balance 2174 / 2474 2715.3 / 2715.3 150 / 150 Lab / Micro Data 05/27/24 04:15 05/27/24 04:15 Labs: Laboratory Results - last 24 hr 05/26/24 04:35: Hemoglobin A1c 5.6, TSH 5.480 H 05/26/24 06:33: POC Glucose 103 05/26/24 11:49: POC Glucose 94 05/26/24 18:13: POC Glucose 86 05/26/24 21:20: POC Glucose 135 H 05/27/24 04:15: WBC 5.5, RBC 4.26 L, Hgb 14.6, Hct 43.0, MCV 100.9 H, MCH 34.3 H, MCHC 34.0, RDW Std Deviation 48.3 H, RDW Coeff of Autumn 13.0, Plt Count 143 L, MPV 10.5, Immature Gran % (Auto) 0.200, Neut % (Auto) 37.0 L, Lymph % (Auto) 50.4 H, [place] % (Auto) 7.3, Eos % (Auto) 4.6, Baso % (Auto) 0.5, Absolute Neuts (auto) 2.0, Absolute Lymphs (auto) 2.76, Nucleated RBC % 0, Sodium 136, Potassium 4.0, Chloride 106, Carbon Dioxide 29.0, Anion Gap 2 L, BUN 9, Creatinine 0.89, Estim Creat Clear Calc 115.15, Est GFR (MDRD) Af Amer 114, Est GFR (MDRD) Non-Af 94, BUN/Creatinine Ratio 10.1, Glucose 92, Calcium 8.7, Total Bilirubin 0.90, AST 42 H, ALT 55, Alkaline Phosphatase 74, Total Protein 6.5, Albumin 3.8, Globulin 2.7, Albumin/Globulin Ratio 1.4 Rhythm Strip Rhythm Strip: Sinus Rhythm Rate: 67 Ectopy: None Physical Exam Narrative Physical Examination: General: Awake, alert, oriented x 3 and cooperative, patient notes hand discomfort although was improved after he had Dilaudid this morning with pain regimen change. Skin: Normal color, normal turgor, no icterus, no cyanosis except for bilateral lower extremity venous stasis skin changes, right hand status with dressing in place, no drainage, does seem more edematous in the digits as well as in the ankle region with ID bracelet on noted to be tight compared to day prior. HEENT: AT/NC, EOMI, PERRLA, MMM. Lungs: CTA bilaterally, moderate effort, mild decrease BL bases, no rales, ronchi or wheezing. Heart: Regular rate and rhythm; no gallop, rub audible. Abdomen: Soft, obese, NTTP, ND, normal BS. Extremities: No cyanosis, no clubbing, no marked peripheral edema except expected mild edema to the right hand into the wrist, no streaking, fingers warm to touch, able to move hand with dressing in place with no current drainage noted although as reported from wound nurse had significant bout of bleeding with dressing change this AM. Neurological: Patient awake, alert, oriented as noted, cognitive function intact; pupils equally reactive to light and accommodation, cranial nerves grossly normal, moving all 4 extremities although some limitation given right hand recent intervention pain, strength mildly to moderately globally decreased. Psychiatric: Affect appears fatigued, no acute evidence of depressive or anxiety feelings. Assessment & Plan Assessment/Plan (1) Cellulitis of hand, right: (2) Abscess of hand, right: PLAN: Plan The patient is a 58 y/o M w/ PMHx: Hypothyroidism, Obesity, HTN, HLD, CANDELARIA on BIPAP, Diabetes mellitus type II w/ chronic neuropathy, Tobacco use, COPD, CAD s/p PCI, Hx TIA/CVA, Hx Seizures, RLS, Anxiety and Depression, GERD w/ Hx GI bleed, recently diagnosed abscess of the Right hand with flexor tenosynovitis 3rd digit s/p surgical I&D by Dr. Edwards 04/27/24 with follow-up I&D by Dr. Edwards 04/05/24 who presents to the [facility] ED on 05/23/2024 with abscess/swelling to the fifth digit of the right hand. #1. 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 05/05/24 Cx from outpatient finally grew and finalized Mycobacterium abscessus. Initially been treated with broad-spectrum antibiotic therapy with IV vancomycin and IV Zosyn with ID following. Once Mycobacterium resulted 05/26/2024 patient regimen altered to azithromycin 5 mg p.o. daily, linezolid 600 mg twice daily, meropenem 1 g IV every 8, amikacin 15 mg/kg IV daily which was discussed with pharmacy for appropriate dosing. 05/26/2024 OR with I&D flexor tendon sheath right long finger, I&D flexor tendon sheath right small finger with atypical appearance left open with packing. Increased pain with regimen broadened. 05/27/2020 for planned return to the OR, discussed with plastic surgery. #2. Hypothyroidism with abnormal TSH: Admission TSH 6.790, follow-up free T4 normal 0.91. Encourage continued outpatient follow-up with repeat thyroid function studies in 6 to 8 weeks. #3. CAD: Status post PCI, continue baby aspirin, temporally holding Plavix for OR. Will continue statin, losartan, not on beta-coco therapy per current list, clarifying. #4. History TIA/CVA: Will continue aspirin, temporally held Plavix for OR. Will continue statin, hypertensive regimen, diabetic regimen with adjustments as noted. #5. Diabetes mellitus type II with chronic neuropathy: Hold oral home regimen, continue home insulin regimen, ADA diet once allowed, accu checks w/ ISS, continue home gabapentin regimen. Magnesium level normal. #6. Chronic COPD: Will temporarily hold home inhalers in the interim transition to ATC budesonide therapy, PRN albuterol, HOB, IS parameters. #7. Hypertension: Continue home regimen including isosorbide, Lasix, losartan with hold parameters, PRN hydralazine. #8. Hyperlipidemia: We will continue patient on statin therapy. #9. Anxiety and depression: We will continue patient home Cymbalta and mirtazapine regimen #10. Tobacco Abuse: Encouraged cessation, inpatient consultation per RT, NR if desired. #11. Obesity: Weight loss and lifestyle changes encouraged. #12. GERD with history GI bleed: We will continue patient on PPI. #13. Chart reported history of seizures: Noted remote history of seizures, not on any anti-epileptic drugs, continue to monitor. #14. Restless leg syndrome: Per current list does not appear to be on medication, monitor and add if needed. #15. CANDELARIA: BiPAP nightly. #16. DVT prophylaxis: SCDs. Holding chemoprophylaxis. Charges/Coding Visit Charges Inpatient E&M: 82199 Subs Hosp L3
[2024-05-27 06:49] LABS: Bedside Glucose 80 mg/dL (74-106)
[2024-05-27] MEDS: Budesonide Respules 0.5 MG/2 ML AMPUL.NEB. INHALATION ×2 (07:14→19:49)
[2024-05-27] MEDS: Ipratropium/Albuterol Sulfate 3 ML AMPUL.NEB INHALATION ×3 (07:14→19:49)
[2024-05-27] MEDS: HYDROmorphone 0.5 MG/0.5 ML SYRINGE IV (07:22)
--- NOTE | 2024-05-27 07:37 | PCM.PN.BLA ---
Progress Note Patient's pain returned around 3 am today (block wore off). Tolerated a soak this morning with 0.5 IV Dilaudid. Reports pain over incisions only. No pain in palm/wrist or over the CT. Physical Exam Narrative Right upper Extremity Inspection/Palpation: No pain in the palm with passive extension/excursion of the FDP at the DIP joint of the small finger and the long finger today. No pain with passive extension/excursion of any of the other fingers/flexor tendons, and no pain in the palm/wrist/CT in general with regards to palpation. The pain is isolated to around the incisions. There is no drainage from the incisions (bleeding skin edges when packing removed, but no purulence). Motor: Able to bend and extend all MP, PIP, and DIP joints. Sensory: Intact to light touch on the radial and ulnar borders. Vascular: Finger tips are warm and well perfused with <2 second capillary refill. Assessment & Plan Assessment/Plan (1) Flexor tenosynovitis of finger: PLAN: Discussed risks/benefits/alternatives on rounds today to return to OR. Patient in agreement. NPO Return to OR today for second wash out of flexor tendon sheaths of the small and long fingers. Continue antibiotics per Infectious Disease performance test consultant for the non-tuberculoid Mycobacterium infection. Procedures Integumentary [id number]: [id number] Global Visit
--- NOTE | 2024-05-27 07:44 | HP.PCM.SX_ITS ---
HPI - General General Date of Admission: 05/23/24 Chief Complaint: Abscess/Swelling of the 5th Digit of the Right Hand. HPI Narrative Current Encounter (DATE OF SURGERY H&P UPDATE): I saw and examined the patient this morning in pre-operative holding. We discussed risks and benefits of today's surgery and they would like to proceed. NO CHANGE in health history since last seen and evaluated. Ready to proceed with surgery. [facility] Medical History Flexor tenosynovitis of finger Open wound, hand Infected hand Insulin dependent diabetes mellitus Arthritis Kidney stone TIA (transient ischemic attack) Seizures Gastric reflux Hypertension History of CVA in adulthood Antiplatelet or antithrombotic long-term use Wears glasses No natural teeth Diabetes Thyroid disease High cholesterol Blackout History of GI bleed Smoker BiPAP (biphasic positive airway pressure) dependence Sleep apnea Shortness of breath on exertion Chronic cough History of edema Leg cramps History of stress test Cardiology follow-up encounter Elevated LFTs Back pain Dorsalgia of thoracolumbar region Patellofemoral arthritis of right knee Bilateral knee pain Situational syncope Chest pain, unspecified Type 2 diabetes mellitus Essential hypertension Pneumonia due to other streptococci Atherosclerosis of coronary artery of [place] heart without angina pectoris Right bundle-branch block Gastroesophageal reflux disease Hypertriglyceridemia Obstructive sleep apnea Body mass index (BMI) 35 or more Tobacco abuse COPD (chronic obstructive pulmonary disease) [place] (dyspnea on exertion) Morbid obesity due to excess calories Localized edema Long-term use of high-risk medication Hyperlipidemia Difficulty swallowing Stage 2 moderate COPD by GOLD classification Sinus drainage Home Medications ?Medication ?Instructions ?Recorded ?Last Taken ?Type albuterol sulfate 90 mcg/actuation 6.7 g inhalation PRN PRN Wheezing 12/06/14 05/04/24 History aerosol inhaler ergocalciferol (vitamin D2) 1,250 50,000 unit PO Q7D SUPPLEMENT 12/06/14 05/04/24 History mcg (50,000 unit) capsule fluticasone propionate 50 1 spray NASAL DAILY ALLERGIES 05/05/16 04/10/24 History mcg/actuation nasal spray,suspension aspirin 81 mg tablet,delayed 81 mg PO DAILY HEART 08/11/19 05/04/24 History release duloxetine 60 mg capsule,delayed 60 mg PO DAILY MOOD 08/11/19 05/04/24 History release levothyroxine 50 mcg tablet 75 mcg PO DAILY THYROID 08/11/19 05/05/24 History losartan 50 mg tablet 25 mg PO QDAY BLOOD PRESSURE 08/11/19 05/04/24 History mirtazapine 15 mg tablet 45 mg PO QHS SLEEP AND RLS 08/11/19 05/04/24 History multivitamin 1 cap PO DAILY SUPPLEMENT 08/11/19 05/04/24 History nitroglycerin 0.4 mg sublingual 0.4 mg sublingual ONCE PRN chest 08/11/19 Unknown History tablet (Nitrostat) pain budesonide-formoterol HFA 160 2 puff inhalation BID COPD #10.2 12/05/19 05/04/24 Rx mcg-4.5 mcg/actuation aerosol grams inhaler clopidogrel 75 mg tablet 75 mg PO QDAY BLOOD THINNER #90 12/29/19 05/04/24 Rx tabs furosemide 40 mg tablet (Lasix) 60 mg PO DAILY WATER PILL 11/15/20 05/04/24 History metformin 1,000 mg tablet 1,000 mg PO BID DIABETES 11/15/20 05/04/24 History isosorbide mononitrate 60 mg 30 mg (1/2 x 60 mg) PO BID HEART 12/03/21 05/05/24 Rx tablet,extended release 24 hr #90 tabs omeprazole 40 mg capsule,delayed 40 mg PO DAILY GERD 1 month #30 06/05/23 05/05/24 Rx release caps rosuvastatin 20 mg tablet 20 mg PO QHS CHOLESTEROL 1 month 06/05/23 05/04/24 Rx #30 tabs empagliflozin 25 mg tablet 25 mg PO DAILY DAIBETES #30 tabs 11/24/23 05/04/24 Rx (Jardiance) fluticasone fur. 100 mcg-umeclid 1 ea inhalation DAILY copd 03/07/24 05/05/24 History 62.5 mcg-vilant 25 mcg inhalat.powder (Trelegy Ellipta) gabapentin 800 mg tablet 800 mg PO TID pain 03/07/24 05/04/24 History dulaglutide 1.5 mg/0.5 mL 1.5 mg subcut MENON DIABETES 03/22/24 04/24/24 History subcutaneous pen injector (Trulicity) cephalexin 500 mg capsule 500 mg PO Q8H 7 days #21 caps 05/05/24 Unknown Rx cefadroxil 500 mg capsule 500 mg PO BID 10 days #20 caps 05/19/24 Unknown Rx doxycycline monohydrate 100 mg 100 mg PO BID 10 days #20 caps 05/19/24 Unknown Rx capsule Allergy/AdvReac Type Severity Reaction Status Date / Time No Known Allergies Allergy Verified 05/19/24 09:02 Family History Father CVA (cerebral vascular accident) Brother CAD (coronary artery disease) Diabetes Mother COPD (chronic obstructive pulmonary disease) Sarcoidosis Surgical History History of hand surgery History of cardiac catheterization S/P laparoscopic cholecystectomy H/O umbilical hernia repair History of coronary artery stent placement (~03/25/16) History of carpal tunnel surgery of right wrist History of left heart catheterization Social History household members: spouse current occupational status: disabled Smoking Status: Light Smoker (<10/day) Tobacco: How many years used: 30 second hand exposure: Yes alcohol intake: never substance use type: does not use caffeine: Yes Type: coffee Number of servings: 2 what type of physical activity do you participate in: none Vital Signs Vital Signs Vital Signs: 05/26/24 07:53 05/26/24 08:00 05/26/24 08:00 Temperature 97.9 F Temperature Source Oral Pulse Rate 88 Pulse Strength Normal (2+) Respiratory Rate 18 Respiratory Effort Normal Non-Labored Respiratory Depth Normal Respiratory Pattern Normal Blood Pressure 127/72 H Blood Pressure Mean 90 Blood Pressure Source Monitor Blood Pressure Position Sitting Blood Pressure Location Right Arm Baseline BP Pulse Ox 93 Oxygen Delivery Method Room Air Room Air Oxygen Flow Rate (L/min) 05/26/24 13:16 05/26/24 14:00 05/26/24 15:27 Temperature 97.8 F 97.9 F Temperature Source Oral Pulse Rate 59 L 53 L 59 L Pulse Strength Respiratory Rate 16 18 16 Respiratory Effort Respiratory Depth Respiratory Pattern Normal Blood Pressure 118/67 127/72 H Blood Pressure Mean 84 Blood Pressure Source Monitor Blood Pressure Position Semi-Fowlers Blood Pressure Location Right Arm Baseline BP Pulse Ox 95 93 Oxygen Delivery Method Room Air Room Air Oxygen Flow Rate (L/min) 2 05/26/24 17:13 05/26/24 17:14 05/26/24 17:20 Temperature 97.1 F L 97.1 F L Temperature Source Temporal Pulse Rate 60 62 61 Pulse Strength Respiratory Rate 16 18 18 Respiratory Effort Respiratory Depth Respiratory Pattern Blood Pressure 154/67 H 154/76 H 143/68 H Blood Pressure Mean 102 93 Blood Pressure Source Monitor Monitor Blood Pressure Position Semi-Fowlers Semi-Fowlers Blood Pressure Location Left Arm Left Arm Baseline BP 127/72 127/72 Pulse Ox 98 98 94 Oxygen Delivery Method Room Air Room Air Room Air Oxygen Flow Rate (L/min) 05/26/24 17:20 05/26/24 17:30 05/26/24 17:45 Temperature Temperature Source Pulse Rate 58 L 59 L 60 Pulse Strength Respiratory Rate 14 18 18 Respiratory Effort Respiratory Depth Respiratory Pattern Blood Pressure 141/72 H 152/90 H Blood Pressure Mean 95 110 Blood Pressure Source Monitor Monitor Blood Pressure Position Semi-Fowlers Semi-Fowlers Blood Pressure Location Left Arm Left Arm Baseline BP 127/72 127/72 127/72 Pulse Ox 93 100 100 Oxygen Delivery Method Room Air Room Air Nasal Cannula Oxygen Flow Rate (L/min) 2 05/26/24 17:56 05/26/24 18:25 05/26/24 19:37 Temperature 97.4 F L 97.8 F Temperature Source Temporal Oral Pulse Rate 58 L 56 L 67 Pulse Strength Respiratory Rate 20 H 18 18 Respiratory Effort Respiratory Depth Respiratory Pattern Normal Blood Pressure 155/82 H 140/66 H Blood Pressure Mean 106 90 Blood Pressure Source Monitor Monitor Blood Pressure Position Semi-Fowlers Semi-Fowlers Blood Pressure Location Left Arm Left Arm Baseline BP 127/72 Pulse Ox 94 94 Oxygen Delivery Method Room Air Nasal Cannula Oxygen Flow Rate (L/min) 2 05/26/24 20:25 05/26/24 21:41 05/26/24 22:25 Temperature 98.1 F 98 F Temperature Source Oral Oral Pulse Rate 60 60 Pulse Strength Respiratory Rate 18 18 Respiratory Effort Normal Non-Labored Respiratory Depth Normal Respiratory Pattern Normal Blood Pressure 140/76 H 108/62 Blood Pressure Mean 97 77 Blood Pressure Source Monitor Monitor Blood Pressure Position Sitting Sitting Blood Pressure Location Right Arm Right Arm Baseline BP Pulse Ox 96 95 Oxygen Delivery Method Room Air Room Air Room Air Oxygen Flow Rate (L/min) 05/27/24 02:52 05/27/24 03:00 05/27/24 06:20 Temperature 97.8 F 97.9 F Temperature Source Oral Oral Pulse Rate 78 61 Pulse Strength Respiratory Rate 16 18 Respiratory Effort Normal Respiratory Depth Respiratory Pattern Blood Pressure 108/60 106/73 Blood Pressure Mean 76 84 Blood Pressure Source Monitor Monitor Blood Pressure Position Supine Supine Blood Pressure Location Right Arm Right Arm Baseline BP Pulse Ox 95 95 Oxygen Delivery Method Room Air Room Air Room Air Oxygen Flow Rate (L/min) 05/27/24 07:16 05/27/24 07:16 Temperature Temperature Source Pulse Rate 54 L Pulse Strength Respiratory Rate 16 Respiratory Effort Respiratory Depth Respiratory Pattern Normal Blood Pressure Blood Pressure Mean Blood Pressure Source Blood Pressure Position Blood Pressure Location Baseline BP Pulse Ox 93 Oxygen Delivery Method Room Air Oxygen Flow Rate (L/min) Weight Weight: 256 lb 6.362 oz Body Mass Index (BMI) 38.0 Physical Exam Narrative Right upper Extremity Inspection/Palpation: No pain in the palm with passive extension/excursion of the FDP at the DIP joint of the small finger and the long finger today. No pain with passive extension/excursion of any of the other fingers/flexor tendons, and no pain in the palm/wrist/CT in general with regards to palpation. The pain is isolated to around the incisions. There is no drainage from the incisions (bleeding skin edges when packing removed, but no purulence). Motor: Able to bend and extend all MP, PIP, and DIP joints. Sensory: Intact to light touch on the radial and ulnar borders. Vascular: Finger tips are warm and well perfused with <2 second capillary refill. Results Lab / Micro Data 05/27/24 04:15 05/27/24 04:15 Labs: Laboratory Results - last 24 hr 05/26/24 04:35: Hemoglobin A1c 5.6, TSH 5.480 H 05/26/24 11:49: POC Glucose 94 05/26/24 18:13: POC Glucose 86 05/26/24 21:20: POC Glucose 135 H 05/27/24 04:15: WBC 5.5, RBC 4.26 L, Hgb 14.6, Hct 43.0, MCV 100.9 H, MCH 34.3 H , MCHC 34.0, RDW Std Deviation 48.3 H, RDW Coeff of [place] 13.0, Plt Count 143 L, MPV 10.5, Immature Gran % (Auto) 0.200, Neut % (Auto) 37.0 L, Lymph % (Auto) 50.4 H, [place] % (Auto) 7.3, Eos % (Auto) 4.6, Baso % (Auto) 0.5, Absolute Neuts (auto) 2.0, Absolute Lymphs (auto) 2.76, Nucleated RBC % 0, Sodium 136, Potassium 4.0, Chloride 106, Carbon Dioxide 29.0, Anion Gap 2 L, BUN 9, Creatinine 0.89, Estim Creat Clear Calc 115.15, Est GFR (MDRD) Af Amer 114, Est GFR (MDRD) Non-Af 94, BUN/Creatinine Ratio 10.1, Glucose 92, Calcium 8.7, Total Bilirubin 0.90, AST 42 H, ALT 55, Alkaline Phosphatase 74, Total Protein 6.5, Albumin 3.8, Globulin 2.7, Albumin/Globulin Ratio 1.4 05/27/24 06:25: POC Glucose 80 Rhythm Strip Rhythm Strip: Sinus Rhythm Rate: 67 Ectopy: None Assessment & Plan Assessment/Plan (1) Flexor tenosynovitis of finger: PLAN: I talked the patient extensively about the risks of surgery, including bleeding, infection, damage to surrounding structures, surgical site dehiscence and wound formation, need for wound care, need for repeat operations, failure to obtain the desired result, DVT/PE, and the risks of anesthesia including . The benefits and alternatives of this surgery were also discussed. All of their questions were answered, and they agreed to proceed with surgery. INTERVAL H&P PLAN, DATE OF SURGERY: We will proceed with surgery today.
[2024-05-27] MEDS: oxyCODONE 5 MG Tablet 10 MG PO ×2 (08:15→22:28)
[2024-05-27] MEDS: HYDROmorphone 1 MG/ML Syringe IV ×3 (10:54→23:47)
[2024-05-27 11:20] LABS: Bedside Glucose 89 mg/dL (74-106)
[2024-05-27] MEDS: DEXTROSE 5% IV (12:15)
[2024-05-27] MEDS: WATER IV (12:15)
[2024-05-27] MEDS: AMIKACIN SULFATE IV (12:15)
--- NOTE | 2024-05-27 14:13 | PCM.PN.ID ---
Physical Exam Narrative Feeling ok, hand a little less sore, no fever, no n/v/d. Const alert and no apparent distress General Appearance: cooperative Resp normal air movement and clear to auscultation bilaterally Cardio regular rate and regular rhythm GI soft to palpation, non-tender and non-distended Skin Skin Narrative: R hand wrapped ID ID: Route of nutrition/ use of supplements: [] Nutritional Intake: [] IV Site: [] Barr Catheter: [] Assessment & Plan Assessment/Plan (1) Abscess of hand, right: PLAN: presented 03/2024 with R middle finger MSSA abscess. Taken to OR 03/06/[address] Edwards. Discharged on 3 weeks po doxy. Readmitted 04/13 for ongoing exposed tendon, taken back to OR that day. Surg cx were neg. C/o diarrhea with doxy, discharged on po keflex. Remained on keflex, hand worsened over past 2-3 weeks with increased redness, swelling. Doxy restarted, repeat cx sent 05/05. AFB culture from that day now (+). Seen at wound center 05/23/24, I&D done, repeat wound cx and AFB sent. Now 05/05/24 cx (+) Mycobacterium abscessus. Taken to OR 05/26/[address] Edwards for I&D and changed abx to linezolid, meropenem, azithro, and amikacin. Spoke with micro lab and requested susceptibility testing on the mycobacteria. Will follow
--- NOTE | 2024-05-27 14:45 | NURSING ---
pt off floor for surgery
[2024-05-27] MEDS: 0.9% Normal Saline (1000mL) 1,000 ML 15 ML IV (14:58)
--- NOTE | 2024-05-27 15:05 | PCM.PRE.AN2 ---
ASA Classification* ASA Classification ASA Classification: 3 Assessment & Plan Anesthesia* Anesthesia Assessment Anesthesia Assessment: Discussed sedation and/or anesthesia options, risks, benefits, and alternatives with patient/parents/legal guardian/POA. Questions invited. The patient/parents/legal guardian/POA seems to understand and agrees to proceed with anesthesia plan. Reviewed the physical assessment, medical history, allergy history and patient home medications list prior to surgery/procedure/anesthetic and documented any changes. Performed airway and anesthesia risk assessments. Anesthesia Type Anesthesia Type: General (LMA $ prior surgery yesterday) Anesthesia Focused Assessment* Temperature: 97.6 F Pulse Rate: 52 Blood Pressure: 116/86 Respiratory Rate: 16 Pulse Ox: 93 Oxygen Flow Rate (L/min): 2 Airway Assessment Mouth opens: >3 cm Mallampati Score: II Focused Labs Anesthesia Preop lab: CBC WBC 5.5 K/mm3 (4.4-11.0) 05/27/24 04:15 RBC 4.26 M/mm3 (4.6-6.2) L 05/27/24 04:15 Hgb 14.6 g/dL (13.0-16.5) 05/27/24 04:15 Hct 43.0 % (40-54) 05/27/24 04:15 Plt Count 143 K/mm3 (150-450) L 05/27/24 04:15 CHEMISTRY Potassium 4.0 mmol/L (3.5-5.1) 05/27/24 04:15 Sodium 136 mmol/L (136-145) 05/27/24 04:15 Magnesium 2.2 mg/dL (1.6-2.6) 05/25/24 05:50 Phosphorus 4.6 mg/dL (2.5-4.9) 05/25/24 05:50 BUN 9 mg/dL (7-18) 05/27/24 04:15 Creatinine 0.89 mg/dL (0.70-1.30) 05/27/24 04:15 Glucose 92 mg/dL (74-106) 05/27/24 04:15 POC Glucose 89 mg/dL (74-106) 05/27/24 10:54 TSH 5.480 uIU/mL (0.358-3.740) H 05/26/24 04:35 COAG PT 14.2 SECONDS (11.7-14.9) 03/06/24 15:50 Pre-Assessment Diagnosis/Proposed Procedure Planned Operative Procedure(s): Incision and drainage right hand small and long fingers and others as needed Anesthesia History Anesthesia History - creative assistant: Anesthesia History - creative assistant Hx Hospitalization Yes 05/04/24 08:59 Any Problems With Anesthesia No 05/23/24 22:37 Cholinesterase deficiency No 05/23/24 22:37 You/Your Family Experience No 05/23/24 22:37 fever (hyperthermia) with Relationship Recent Exposure to Contagious No 05/23/24 22:37 Disease Does patient have nerve No 05/23/24 22:37 stimulator Patient instructed to have No 05/23/24 22:37 device shut off --Does patient have Pacemaker or ICD? When Was Last Pacemaker Check QUESTION #4 FULL TEXT: You/Your Family Experience fever (hyperthermia) with Anesthesia Last Oral Intake Last Oral intake: Last Oral Intake NPO since 00:00 05/26/24 15:27 Meds taken in AM with sips of water? Meds patient instructed to take am of surgery PONV PONV - creative assistant: PONV - creative assistant Female HX of Motion Sickness HX of N/V After Surgery Non-Smoker Duration of Surgery greater than 60 minutes Number of Risk Factors PONV Score Height & Weight Height & Weight: Anesthesia: Height & Weight Height 5 ft 9 in 05/24/24 11:46 Weight: 116.3 kg 05/27/24 05:42 Body Mass Index (BMI) 38.0 05/27/24 05:42 Respiratory Assessment Respiratory Assessment - creative assistant: Respiratory Tract Infection Hx - creative assistant Hx Respiratory Tract Infection No 05/23/24 22:37 STOP Sleep Apnea STOP Sleep Apnea - creative assistant: STOP Sleep Apnea - creative assistant Hx Hypertension Yes 05/23/24 22:33 Hx Sleep Apnea Yes 05/26/24 17:56 CPAP Yes 05/26/24 17:14 BIPAP No 05/23/24 22:33 Do you snore loudly (louder than talking or can be heard Do you often feel tired/ fatigued/ sleepy during daytime? Has anyone observed you stop breathing during sleep? STOP Results Positive 05/26/24 17:14 QUESTION #5 FULL TEXT : Do you snore loudly (louder than talking or can be heard through closed doors)? Tobacco Use History Tobacco Use History - creative assistant: Tobacco Use History - creative assistant Tobacco Use Smoking Status Light Smoker (<10/day) 05/24/24 08:10 Hx Tobacco Use Yes 05/23/24 22:33 Years Smoking Packs Smoked per Day Smoking Cessation Date was within the last 15 years Hx Smoking Cessation Date Hx Smoking Cessation No 05/23/24 22:33 Counseling Hematologic Medial History Hematologic Hx - creative assistant: Hematologic Medical Hx - [employer] Hx of Blood Transfusion No 05/23/24 22:33 Hx of Transfusion in last 3 No 05/23/24 22:33 Months Date of Last Transfusion (if within last 3 months) Ever experience any problems No 05/23/24 22:33 with transfusion(s)? Specify any problems Hx of Preganancy in last 3 N/A 05/23/24 22:33 Months Nurse Filling Out Transfusion DREDICK 05/23/24 22:33 & Questions: Date: 05/23/24 05/23/24 22:33 Time: 22:34 05/23/24 22:33 Patient unable to answer at this time (ie. confused, unrespo /Reproduction History /Reproductive History - creative assistant: /Reproductive Hx- creative assistant Hx Now No 05/23/24 22:37 Gestational Age (in weeks): EDC: Hx Hx Para Hx Section SAB No 05/23/24 22:37 Active Medications Active Medications: Current Medications Generic Name Dose Route Start Last Admin Trade Name Freq PRN Reason Stop Dose Admin Acetaminophen 650 mg 05/23/24 22:26 05/27/24 05:01 Acetaminophen 325 Mg Tablet PO 650 mg Q6H PRN PRN Administration Pain 1-5/10 Or Fever>100.7 Al Hydroxide/Mg Hydroxide 30 ml 05/23/24 22:26 Mag Hydrox/Al Hydrox/Simeth 30 Ml Udc PO Q6H PRN PRN Gastric Burning Albuterol Sulfate 2.5 mg 05/23/24 22:26 Albuterol 2.5 Mg/3 Ml Vial.Neb. INHALATION Q4H PRN PRN Wheezing Albuterol/Ipratropium 3 ml 05/24/24 00:00 05/27/24 13:36 Ipratropium/Albuterol Sulfate 3 Ml Ampul.Neb INHALATION 3 ml Q6HWA.RT JAMES Administration Amikacin Protocol 1 each 05/26/24 11:40 Amikacin Iv-Pharmacy To Dose IV PRN PRN Rx to Dose Protocol Ascorbic Acid 1,000 mg 05/24/24 08:00 05/27/24 08:33 Ascorbic Acid 500 Mg Tablet PO Not Given BIDCM [facility] Aspirin 81 mg 05/24/24 08:00 05/27/24 08:33 Aspirin E.C. 81 Mg Tablet PO Not Given DAILYCM [facility] Atorvastatin Calcium 40 mg 05/23/24 22:26 05/26/24 21:03 Atorvastatin Calcium 40 Mg Tablet PO 40 mg QHS JAMES Administration Azithromycin 500 mg 05/26/24 11:40 05/27/24 09:49 Azithromycin 250 Mg Tablet PO Not Given Q24 JAMES Budesonide 0.5 mg 05/24/24 06:00 05/27/24 07:14 Budesonide Respules 0.5 Mg/2 Ml Ampul.Neb. INHALATION 0.5 mg Q12H.RT JAMES Administration Clopidogrel Bisulfate 75 mg 05/25/24 10:00 05/26/24 11:12 Clopidogrel Bisulfate 75 Mg Tablet PO Not Given DAILY [facility] Diphenoxylate HCl/Atropine 2 tablet 05/23/24 22:26 Diphenoxylate/Atrop 1 Tablet PO TID PRN PRN diarrhea Duloxetine HCl 60 mg 05/24/24 10:00 05/27/24 09:48 Duloxetine Hcl 60 Mg Capsule PO Not Given DAILY [facility] Enoxaparin Sodium 40 mg 05/24/24 10:00 05/27/24 09:49 Enoxaparin 40 Mg/0.4 Ml Syringe SC Not Given DAILY [facility] Ergocalciferol 1.25 mg 05/24/24 10:00 05/24/24 12:10 Ergocalciferol 1.25 Mg (50, 000 Unit) Capsule PO 1.25 mg Tu@1000 JAMES Administration Fluticasone Propionate 1 spray 05/24/24 10:00 05/27/24 09:48 Fluticasone 0.05% 1 [place] Nasal.Sry NASAL Not Given DAILY [facility] Furosemide 60 mg 05/24/24 10:00 05/27/24 09:49 Furosemide 20 Mg Tablet PO Not Given DAILY [facility] Protocol Gabapentin 800 mg 05/23/24 22:26 05/27/24 13:32 Gabapentin 800 Mg Tablet PO Not Given TID JAMES Glucagon 1 mg 05/23/24 22:26 Glucagon 1 Mg/Ml Syringe IM X1 PRN HYPOGLYCEMIA Protocol Hydromorphone HCl 1 mg 05/27/24 06:46 05/27/24 10:54 Hydromorphone 1 Mg/Ml Syringe IV 1 mg Q3H PRN PRN Administration pain 6-10 Dextrose 250 mls @ 0 mls/hr 05/23/24 22:26 Dextrose 10%-Water IV .Q0M PRN HYPOGLYCEMIA Protocol As Directed Sodium Chloride 100 mls @ 15 mls/hr 05/23/24 22:27 IV .Q6H40M PRN Saline Flush Sodium Chloride 100 mls @ 15 mls/hr 05/23/24 22:27 IV .Q6H40M PRN Additional IVPB Infusion Meropenem 1 gm/ Sodium 120 mls @ 33 mls/hr 05/26/24 11:40 05/27/24 13:45 Chloride IV 33 mls/hr Q8 JAMES Administration Amikacin Sulfate 1,325 mg/ 505.3 mls @ 505.3 mls/hr 05/26/24 12:30 05/27/24 13:15 Dextrose IV Infused Q24H JAMES Infusion Sodium Chloride 1,000 mls @ 15 mls/hr 05/27/24 15:00 05/27/24 14:58 IV 06/02/24 04:19 15 mls/hr .Q48H JAMES Administration Protocol Insulin Human Lispro 0 unit 05/24/24 11:00 05/27/24 10:56 Insulin Lispro 100 Unit/Ml Insuln.Pen SC Not Given ACHS JAMES Protocol Isosorbide Mononitrate 30 mg 05/23/24 22:26 05/27/24 09:49 Isosorbide Mononitrate 30 Mg Tablet PO Not Given BID JAMES Protocol Levothyroxine Sodium 75 mcg 05/24/24 06:00 05/27/24 05:53 Levothyroxine 75 Mcg Tablet PO Not Given 0600 JAMES Linezolid 600 mg 05/26/24 11:40 05/27/24 09:49 Linezolid 600 Mg Tablet PO Not Given BID JAMES Losartan Potassium 25 mg 05/24/24 10:00 05/27/24 09:48 Losartan Potassium 25 Mg Tablet PO Not Given DAILY [facility] Protocol Magnesium Hydroxide 30 ml 05/23/24 22:26 Magnesium Hydroxide 30 Ml Udc PO DAILY PRN PRN Constipation Melatonin 3 mg 05/23/24 22:26 Melatonin 3 Mg Tablet PO QHS PRN PRN INSOMNIA Mirtazapine 45 mg 05/23/24 22:26 05/25/24 20:59 Mirtazapine 15 Mg Tablet PO 45 mg QHS JAMES Administration Multivitamins 1 tablet 05/24/24 08:00 05/27/24 08:33 Multivitamins,Therapeutic [facility] Nicotine 14 mg 05/24/24 10:00 05/27/24 10:55 Nicotine 14 Mg Patch TD Not Given DAILY [facility] Nitroglycerin 0.4 mg 05/23/24 22:26 Nitroglycerin (Inpatient Use) 0.4 Mg Tab.Subl SL Q5M PRN chest pain Nutritional Formula (Lactose Free) 120 ml 05/24/24 08:00 05/27/24 10:55 Glucerna Shake 120 Ml Liquid PO Not Given TIDCM [facility] Ondansetron HCl 4 mg 05/23/24 22:26 Ondansetron 4 Mg/2 Ml Vial IV Q8H PRN PRN NAUSEA/VOMITING Oxycodone HCl 10 mg 05/27/24 06:47 05/27/24 08:15 Oxycodone 5 Mg Tablet PO 10 mg Q4H PRN PRN Administration Pain Score 6-10 Pantoprazole Sodium 40 mg 05/24/24 10:00 05/27/24 09:49 Pantoprazole Sodium 40 Mg Tablet PO Not Given DAILY [facility] Sodium Chloride 10 - 40 ml 05/23/24 22:27 05/27/24 07:22 0.9% Saline Lock 10 Ml Syringe IV 10 ml UD PRN Administration SALINE FLUSH Zinc Sulfate 50 mg 05/24/24 10:00 05/27/24 09:49 Zinc Sulfate 50 Mg Zinc (220 Mg) Oral Capsule PO Not Given DAILY [facility] Medical History Flexor tenosynovitis of finger Open wound, hand Infected hand Insulin dependent diabetes mellitus Arthritis Kidney stone TIA (transient ischemic attack) Seizures Gastric reflux Hypertension History of CVA in adulthood Antiplatelet or antithrombotic long-term use Wears glasses No natural teeth Diabetes Thyroid disease High cholesterol Blackout History of GI bleed Smoker BiPAP (biphasic positive airway pressure) dependence Sleep apnea Shortness of breath on exertion Chronic cough History of edema Leg cramps History of stress test Cardiology follow-up encounter Elevated LFTs Back pain Dorsalgia of thoracolumbar region Patellofemoral arthritis of right knee Bilateral knee pain Situational syncope Chest pain, unspecified Type 2 diabetes mellitus Essential hypertension Pneumonia due to other streptococci Atherosclerosis of coronary artery of [place] heart without angina pectoris Right bundle-branch block Gastroesophageal reflux disease Hypertriglyceridemia Obstructive sleep apnea Body mass index (BMI) 35 or more Tobacco abuse COPD (chronic obstructive pulmonary disease) MASON (dyspnea on exertion) Morbid obesity due to excess calories Localized edema Long-term use of high-risk medication Hyperlipidemia Difficulty swallowing Stage 2 moderate COPD by GOLD classification Sinus drainage Home Medications ?Medication ?Instructions ?Recorded ?Last Taken ?Type albuterol sulfate 90 mcg/actuation 6.7 g inhalation PRN PRN Wheezing 12/06/14 05/04/24 History aerosol inhaler ergocalciferol (vitamin D2) 1,250 50,000 unit PO Q7D SUPPLEMENT 12/06/14 05/04/24 History mcg (50,000 unit) capsule fluticasone propionate 50 1 spray NASAL DAILY ALLERGIES 05/05/16 04/10/24 History mcg/actuation nasal spray,suspension aspirin 81 mg tablet,delayed 81 mg PO DAILY HEART 08/11/19 05/04/24 History release duloxetine 60 mg capsule,delayed 60 mg PO DAILY MOOD 08/11/19 05/04/24 History release levothyroxine 50 mcg tablet 75 mcg PO DAILY THYROID 08/11/19 05/05/24 History losartan 50 mg tablet 25 mg PO QDAY BLOOD PRESSURE 08/11/19 05/04/24 History mirtazapine 15 mg tablet 45 mg PO QHS SLEEP AND RLS 08/11/19 05/04/24 History multivitamin 1 cap PO DAILY SUPPLEMENT 08/11/19 05/04/24 History nitroglycerin 0.4 mg sublingual 0.4 mg sublingual ONCE PRN chest 08/11/19 Unknown History tablet (Nitrostat) pain budesonide-formoterol HFA 160 2 puff inhalation BID COPD #10.2 12/05/19 05/04/24 Rx mcg-4.5 mcg/actuation aerosol grams inhaler clopidogrel 75 mg tablet 75 mg PO QDAY BLOOD THINNER #90 12/29/19 05/04/24 Rx tabs furosemide 40 mg tablet (Lasix) 60 mg PO DAILY WATER PILL 11/15/20 05/04/24 History metformin 1,000 mg tablet 1,000 mg PO BID DIABETES 11/15/20 05/04/24 History isosorbide mononitrate 60 mg 30 mg (1/2 x 60 mg) PO BID HEART 12/03/21 05/05/24 Rx tablet,extended release 24 hr #90 tabs omeprazole 40 mg capsule,delayed 40 mg PO DAILY GERD 1 month #30 06/05/23 05/05/24 Rx release caps rosuvastatin 20 mg tablet 20 mg PO QHS CHOLESTEROL 1 month 06/05/23 05/04/24 Rx #30 tabs empagliflozin 25 mg tablet 25 mg PO DAILY DAIBETES #30 tabs 11/24/23 05/04/24 Rx (Jardiance) fluticasone fur. 100 mcg-umeclid 1 ea inhalation DAILY copd 03/07/24 05/05/24 History 62.5 mcg-vilant 25 mcg inhalat.powder (Trelegy Ellipta) gabapentin 800 mg tablet 800 mg PO TID pain 03/07/24 05/04/24 History dulaglutide 1.5 mg/0.5 mL 1.5 mg subcut MENON DIABETES 03/22/24 04/24/24 History subcutaneous pen injector (Trulicity) cephalexin 500 mg capsule 500 mg PO Q8H 7 days #21 caps 05/05/24 Unknown Rx cefadroxil 500 mg capsule 500 mg PO BID 10 days #20 caps 05/19/24 Unknown Rx doxycycline monohydrate 100 mg 100 mg PO BID 10 days #20 caps 05/19/24 Unknown Rx capsule Allergy/AdvReac Type Severity Reaction Status Date / Time No Known Allergies Allergy Verified 05/19/24 09:02 Family History Father CVA (cerebral vascular accident) Brother CAD (coronary artery disease) Diabetes Mother COPD (chronic obstructive pulmonary disease) Sarcoidosis Surgical History History of hand surgery History of cardiac catheterization S/P laparoscopic cholecystectomy H/O umbilical hernia repair History of coronary artery stent placement (~03/25/16) History of carpal tunnel surgery of right wrist History of left heart catheterization Social History household members: spouse current occupational status: disabled Smoking Status: Light Smoker (<10/day) Tobacco: How many years used: 30 second hand exposure: Yes alcohol intake: never substance use type: does not use caffeine: Yes Type: coffee Number of servings: 2 what type of physical activity do you participate in: none Review of Systems (Anesthesia) ROS Narrative System reviewed and no additional complaints, except as documented.
--- NOTE | 2024-05-27 15:30 | TESH_PTH ---
PATIENT: ONELIA REED LOC: [facility] U#:[id number] AGE/SX: 58/M ROOM: ID316 RE05/23/[address]: Dr. Sharon Lawton MD : 1965 BED: 1 DIS: 06/03/2024 SPEC #: [id number] RECD: 05/27/24 17:49 STATUS: BRIJESH CORRAL #: [id number] JOSE: 05/27/24 15:[address]: Sergio Edwards DEPT: SURGICAL PATHOLOGY RECD BY: Rudy Franks ENTERED: 05/30/24 09:28 SP TYPE: TENDON OTHR DR: DO Dr. Nicky Gonzalez MD Dr. David de Lorenzo, MD [address] [facility] Tissues: Tendon and tendon sheath, NOS Procedures: Surgery Specimen Level III HEADER OPERATION: Incision drainage abscess, hand and two flexor tendon wash out PRE-OP DIAGNOSIS: Abscess of hand, right TISSUE SUBMITTED: Right long finger tendon- look for granuloma MICROSCOPIC DIAGNOSIS Right long finger tendon, biopsy: A piece of dense fibroconnective tissue with acute inflammation. See comment. 05/31/2024 COMMENT Granulomas are not seen. Clinical correlation and appropriate follow up are necessary. MICROSCOPIC DESCRIPTION Slides are reviewed. GROSS DESCRIPTION Received in fixative is one container labeled with the patient's name and designated Right long finger tendon. The specimen consists of a piece of kumar-white soft tissue measuring 0.7 x 0.2 x 0.1cm. The entire specimen is submitted in one cassette. JUSTINAlis 05/30/2024 TC:2 CPT:15915
[2024-05-27] MEDS: Bupiv/Epi 0.25% 30 ML Vial INFILT (16:15)
--- NOTE | 2024-05-27 17:17 | PCM.POST.ANE ---
Anesthesia: Postop Eval I Current Vital Signs Temperature: 97.8 F Pulse Rate: 64 Blood Pressure: 100/75 Respiratory Rate: 16 Pulse Ox: 95 Oxygen Delivery Method: Room Air Assessment Airway patent: Yes Spontaneous unlabored respirations: Yes Mental status: Awake and Calm nausea: No Vomiting: No Anesthesia Complication: No Fluid Hydration Crystalloid volume administer (ml): 700 Total IV fluid infused: 700 Progress Note Anesthesia document: Postop Eval 1 completed: Yes
--- NOTE | 2024-05-27 17:33 | PCM.OPRPT ---
Operative Report (Standard) Operative Information Date of Procedure: 05/27/24 Pre-Operative Diagnosis: Right small and right long finger flexor tenosynovitis Post-Operative Diagnosis: Same Surgery/Procedure Performed: 1) Incision and Drainage of flexor tendon sheath, right long finger (CPT: 50569) 2) Incision and Drainage of flexor tendon sheath, right small finger (CPT: 21399) assistant manager/embalmer: No Type of Anesthesia: General/Supplemental (10 cc of 0.25% Marcaine with 1:200,000 epinephrine ) RN Documented Start/Stop Times: Operation Date: 05/27/24 15:30 Case Time Into Pre-Op 05/27/24 14:47 Out of Pre-Op 05/27/24 15:36 Into Room 05/27/24 15:40 Anesthesia Start 05/27/24 15:45 Procedure Start 05/27/24 16:15 Procedure End 05/27/24 17:02 Anesthesia End 05/27/24 17:12 Out of Room 05/27/24 17:12 Into Recovery 05/27/24 17:15 Procedure Start Time: 16:15 Procedure Stop Time: 17:02 Select all DRAINS/GRAFTS/IMPLANTS that apply: Drains (Bristol ) Drain details: Two jay drains sutured into place on the palm Estimated Blood Loss: 10 cc Fluids Replaced: 500 cc LR Specimen collected: Yes Description of specimen(s) removed: Culture from right long finger tendon, right long finger path specimen, right small finger bruce culture Description of surgery: Indications: Lisandro Miranda is a 58-year-old male with past medical history of COPD, tobacco use, diabetes, coronary artery disease, and CVA, as well as flexor tenosynovitis to the right long finger in March 2024 complicated by wound healing problems, complicated by multiple surgeries for closure of the volar wounds including flap reconstruction, complicated by recent abscess formation in the right volar finger distal to the flap as well as the right small finger, who is 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 Infectious disease has been involved throughout the process, and since the cultures are now growing Mycobacterium they are switching his antibiotic regimen as this could be the reason for his issues with healing and abscess formation. Patient understands the risk benefits and alternatives to surgery today. I talked him extensively about wound healing problems postoperatively and the need for repeat operations and wound care. He understands that he has a severe infection, and given the worsening pain in the right small finger and concerning signs for flexor tenosynovitis today on exam, this is an emergent operation. Procedure Details: Patient was correctly identified in preoperative holding and taken back to the operating room where he was administered general anesthesia. He was prepped and draped in sterile fashion and all proper timeouts were performed. A right upper extremity tourniquet was insufflated to 250 mmHg. Existing incisions were opened and sutures removed. The wounds were irrigated with 3 L normal saline. A culture was taken from the long finger flexor tendon at the level of the A1 bruce, and a culture taken from the small finger A2 bruce (area that appeared frayed and necrotic). A sample of the long finger was also sent to pathology to examine for granulomas in the setting of Mycobacterium infection. No purulence was identified coming from the proximal palm through the proximal portions of the incisions. The flexor sheaths of the long and ring finger were then irrigated with copious amounts normal saline via Angiocath, as well as copious amounts of Irrisept. The wounds were then partially closed with 3-0 nylon interrupted sutures, and 2 Bristol drains were placed out of the volar palmar incisions. We then let down the tourniquet and obtained hemostasis with bipolar electrocautery. A 10 cc block of 0.25% Marcaine with 1:200,000 epinephrine was used for digital blocks and around the incision for hemostasis and pain control. The patient tolerated the procedure well. The wounds were closed partially with 1 interrupted nylon 3-0 suture and the rest of them were packed with iodoform gauze. His hand was wrapped in a dry dressing and Coban loosely. He was awakened and taken the PACU in stable condition. Post-operative Plan: Continue broad-spectrum antibiotics per infectious disease for the Mycobacterium. Anticipate continued 3 times per day Dial soap soaks. Surgical Findings: Much street light cleaner overall picture without signs of acute infection. No purulence and no pathologic fluid or synovitis identified at this time, and no proximal extension of the infection. This was consistent with physical exam, where there was no pain or tenderness on the palm or over the carpal tunnel/wrist, as well as no redness or signs of infection in this location clinically. Complications Complications: No Admit VTE Documentation VTE Mechan Device Prophylaxis: SCD's
--- NOTE | 2024-05-27 17:45 | POSTOPAN2_ITS ---
Anesthesia Postop Eval I Sum Postop Eval Completion status Anesthesia document: Postop Eval 1 completed: Yes Anesthesia Postop Eval I Summary Anesthesia Postop Eval I Summary: Anesthesia Postop Eval I: Assessment Summary Airway patent Yes 05/27/24 17:19 REPAIRER ENGINE PRODUCTION.SKOBY Spontaneous unlabored Yes 05/27/24 17:19 REPAIRER ENGINE PRODUCTION.CAROL respirations Mental status Awake,Calm 05/27/24 17:19 REPAIRER ENGINE PRODUCTION.KAYOBCynthia nausea No 05/27/24 17:19 REPAIRER ENGINE PRODUCTION.KAYOBCynthia Vomiting No 05/27/24 17:19 REPAIRER ENGINE PRODUCTION.CAROL Anesthesia Postop Eval I: Fluid Summary Crystalloid volume administer 700 05/27/24 17:19 REPAIRER ENGINE PRODUCTION.KAYOBY (ml) Colloids volume administered ( ml) Blood Product volume administered (ml) Total IV fluid infused 700 05/27/24 17:19 REPAIRER ENGINE PRODUCTION.CAROL Anesthesia Postop Eval I: Summary Notes Anesthesia Complication No 05/27/24 17:19 REPAIRER ENGINE PRODUCTION.CAROL Anesthesia Complication Comment: Post-operative progress note Anesthesia: Postop Eval II Evaluation Mental status: Awake Pain Level: 0 nausea: No Vomiting: No
--- NOTE | 2024-05-27 17:45 | PCM.POSTANE2 ---
Anesthesia Postop Eval I Sum Postop Eval Completion status Anesthesia document: Postop Eval 1 completed: Yes Anesthesia Postop Eval I Summary Anesthesia Postop Eval I Summary: Anesthesia Postop Eval I: Assessment Summary Airway patent Yes 05/27/24 17:19 [email or web address] Spontaneous unlabored Yes 05/27/24 17:19 ENGINEERING [email or web address] respirations Mental status Awake,Calm 05/27/24 17:19 ENGINEERING [email or web address] nausea No 05/27/24 17:19 ENGINEERING [email or web address] Vomiting No 05/27/24 17:19 [email or web address] Anesthesia Postop Eval I: Fluid Summary Crystalloid volume administer 700 05/27/24 17:19 ENGINEERING [email or web address] (ml) Colloids volume administered ( ml) Blood Product volume administered (ml) Total IV fluid infused 700 05/27/24 17:19 [email or web address] Anesthesia Postop Eval I: Summary Notes Anesthesia Complication No 05/27/24 17:19 ENGINEERING [email or web address] Anesthesia Complication Comment: Post-operative progress note Anesthesia: Postop Eval II Evaluation Mental status: Awake Pain Level: 0 nausea: No Vomiting: No
--- NOTE | 2024-05-27 17:45 | ANES.CONFIRM ---
Anesthesia: Confirm Documents Multiple Procedures on Account (2) Confirmed Documents: Yes
[2024-05-27] MEDS: Atorvastatin Calcium 40 MG Tablet PO (21:01)
[2024-05-27] MEDS: Lactobacillis Acidophilus 1 CAP PO (21:01)
[2024-05-27] MEDS: Linezolid 600 MG Tablet PO (21:01)
[2024-05-27] MEDS: Isosorbide Mononitrate 30 MG Tablet PO (21:04)
[2024-05-27 22:29] LABS: Bedside Glucose 94 mg/dL (74-106)
[2024-05-28] VITALS (7 sets, daily range): BP systolic 103–114; BP diastolic 58–67; PULSE 51–72; RESP 16–20; TEMP 36.6–37.2; O2SAT 91–96; BMI 38.0
[2024-05-28] MEDS: oxyCODONE 5 MG Tablet 10 MG PO ×3 (03:29→16:47)
[2024-05-28] MEDS: Meropenem 1 GM in 0.9% Normal Saline (100mL MB+) 100 ML IV ×3 (06:16→22:07)
[2024-05-28] MEDS: Levothyroxine 75 MCG Tablet PO (06:17)
[2024-05-28] MEDS: Gabapentin 800 MG Tablet PO ×3 (06:17→23:17)
[2024-05-28] MEDS: HYDROmorphone 1 MG/ML Syringe IV ×2 (06:18→10:57)
--- NOTE | 2024-05-28 06:27 | PN.HOSP_ITS ---
Reason for Visit Reason for Visit: Diagnoses Type 2 diabetes mellitus with diabetic polyneuropathy (05/23/24) Obesity, unspecified (05/23/24) Obstructive sleep apnea (adult) (pediatric) (05/23/24) Cutaneous abscess of right hand (05/23/24) Cellulitis of right upper limb (05/23/24) Unspecified synovitis and tenosynovitis, unspecified hand (05/23/24) Unspecified open wound of right hand, subsequent encounter (05/23/24) Tobacco use (05/23/24) nursing home (current) use of insulin (05/23/24) Subjective Subjective Patient with no acute events overnight per self and per nursing reports. For the first time patient is not up moving the room and is actually laying in bed resting with his arm elevated. Dressing changed this morning with plastic surgery noted to be well-appearing with no significant bleeding like the day prior. Patient denies fevers, chills, nausea, emesis, abdominal pain, chest pain or dyspnea. Objective Data Objective Data Vital Signs: Vital Signs Temp Pulse Resp BP Pulse Ox O2 Del Method O2 Flow Rate 98.4 F 54 L 18 109/60 92 Room Air 2 05/28/24 03:32 05/28/24 03:32 05/28/24 03:32 05/28/24 03:32 05/28/24 03:32 05/28/24 03:32 05/27/24 18:12 Oxygen Flow Rate (L/min) 2 Oxygen Delivery Method Room Air Weight: 256 lb 6.362 oz Body Mass Index (BMI) 38.0 Intake & Output: Intake and Output for Last 24 Hours 05/26/24 05/27/24 05/28/24 23:59 23:59 23:59 Intake Total 2715.3 / 2715.3 895.3 / 895.3 1720 / 1720 Balance 2715.3 / 2715.3 895.3 / 895.3 1720 / 1720 Lab / Micro Data 05/28/24 06:50 05/28/24 06:50 Labs: Laboratory Results - last 24 hr 05/27/24 06:25: POC Glucose 80 05/27/24 10:54: POC Glucose 89 05/27/24 21:00: POC Glucose 94 Micro: Microbiology 05/26/24 Unknown Wound Abcess - Right Hand Gram Stain - Final 05/26/24 Unknown Wound Abcess - Right Hand Wound Culture - Preliminary No growth-Final to follow 05/26/24 Unknown Wound Abcess - Right Hand Gram Stain - Final 05/26/24 Unknown Wound Abcess - Right Hand Wound Culture - Preliminary No growth-Final to follow Rhythm Strip Rhythm Strip: Sinus Rhythm Rate: 67 Ectopy: None Physical Exam Narrative Physical Examination: General: Awake, alert, oriented x 3 and cooperative, laying in the MS bed, arm elevated, notes pain currently controlled. Skin: Normal color, normal turgor, no icterus, no cyanosis except for bilateral lower extremity venous stasis skin changes, right upper extremity with dressing in place recently changed and soaked per plastic surgery, no drainage. HEENT: AT/NC, EOMI, PERRLA, MMM. Lungs: CTA bilaterally, moderate effort, mild decrease BL bases, no rales, ronchi or wheezing. Heart: Regular rate and rhythm; no gallop, rub audible. Abdomen: Soft, obese, NTTP, ND, normal BS. Extremities: No cyanosis, no clubbing, see skin. Neurological: Patient awake, alert, oriented as noted, cognitive function intact; pupils equally reactive to light and accommodation, cranial nerves grossly normal, moving all 4 extremities although some limitation given right discomfort although currently lessened, elevating his right upper extremity in bed, strength mildly to moderately globally decreased Psychiatric: Affect appears fatigued, no acute evidence of depressive or anxiety feelings. Assessment & Plan Assessment/Plan (1) Cellulitis of hand, right: (2) Abscess of hand, right: PLAN: Plan The patient is a 58 y/o M w/ PMHx: Hypothyroidism, Obesity, HTN, HLD, CANDELARIA on BIPAP, Diabetes mellitus type II w/ chronic neuropathy, Tobacco use, COPD, CAD s/p PCI, Hx TIA/CVA, Hx Seizures, RLS, Anxiety and Depression, GERD w/ Hx GI bleed, recently diagnosed abscess of the Right hand with flexor tenosynovitis 3rd digit s/p surgical I&D by Dr. Edwards 04/27/24 with follow-up I&D by Dr. Edwards 04/05/24 who presents to the [facility] ED on 05/23/2024 with abscess/swelling to the fifth digit of the right hand. #1. 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 05/05/24 Cx from outpatient finally grew and finalized Mycobacterium abscessus. Initially been treated with broad- spectrum antibiotic therapy with IV vancomycin and IV Zosyn with ID following. Once Mycobacterium resulted 05/26/2024 patient regimen altered to azithromycin 5 mg p.o. daily, linezolid 600 mg twice daily, meropenem 1 g IV every 8, amikacin 15 mg/kg IV daily which was discussed with pharmacy for appropriate dosing. 05/26/2024 OR with I&D flexor tendon sheath right long finger, I&D flexor tendon sheath right small finger with atypical appearance left open with packing. 05/27/2020 return to the OR with repeat I&D flexor tendon sheath right long finger and I&D flexor tendon sheath right small finger. Awaiting or culture finalization from the OR in addition to ID request for susceptibility testing on the mycobacteria which is pending. 05/28/2024 dressing takedown and evaluation by plastic surgery with no marked bleeding reported per patient thus will reinitiate Plavix as has been held as notable bleeding day prior. 05/28/24 Hgb 14. Will temporally continue to hold chemoprophylaxis but may resume 05/29/2024. #2. Thrombocytopenia, Chronic: 05/28/24 Plts 129, baseline 100 range, stable, continue to trend, cautious use chemoprophylaxis. #3. Hypothyroidism with abnormal TSH: Admission TSH 6.790, follow-up free T4 normal 0.91. Encourage continued outpatient follow-up with repeat thyroid function studies in 6 to 8 weeks. #4. CAD: Status post PCI, continue baby aspirin, statin, losartan, not on beta- coco therapy per current list, clarifying. 05/28/2024 dressing takedown and evaluation by plastic surgery with no marked bleeding reported per patient thus will reinitiate Plavix as has been held as notable bleeding day prior. #5. History TIA/CVA: Will continue aspirin, statin, hypertensive regimen, diabetic regimen with adjustments as noted. 05/28/2024 dressing takedown and evaluation by plastic surgery with no marked bleeding reported per patient thus will reinitiate Plavix as has been held as notable bleeding day prior. #6. Diabetes mellitus type II with chronic neuropathy: Hold oral home regimen, continue home insulin regimen, ADA diet once allowed, accu checks w/ ISS, continue home gabapentin regimen. Magnesium level normal. #7. Chronic COPD: Will temporarily hold home inhalers in the interim transition to ATC budesonide therapy, PRN albuterol, HOB, IS parameters. #8. Hypertension: Continue home regimen including isosorbide, Lasix, losartan with hold parameters, PRN hydralazine. #9. Hyperlipidemia: We will continue patient on statin therapy. #10. Anxiety and depression: We will continue patient home Cymbalta and mirtazapine regimen #11. Tobacco Abuse: Encouraged cessation, inpatient consultation per RT, NR if desired. #12. Obesity: Weight loss and lifestyle changes encouraged. #13. GERD with history GI bleed: We will continue patient on PPI. #14. Chart reported history of seizures: Noted remote history of seizures, not on any anti-epileptic drugs, continue to monitor. #15. Restless leg syndrome: Per current list does not appear to be on medication, monitor and add if needed. #16. CANDELARIA: BiPAP nightly. #17. DVT prophylaxis: SCDs. 05/28/2024 will continue to temporarily hold prophylactics but as noted above Plavix has been re-added. Charges/Coding Visit Charges Inpatient E&M: 76578 Subs Hosp L2
[2024-05-28 07:12] LABS: Bedside Glucose 120 mg/dL (74-106)
--- NOTE | 2024-05-28 07:58 | PCM.PN.SRG ---
Subjective Subjective Reports improved pain today. Doing better overall. Endorses excellent care and excellent soaks by nursing staff. Objective Data Objective Data Vital Signs: Vital Signs Temp Pulse Resp BP Pulse Ox O2 Del Method O2 Flow Rate 98.4 F 54 L 18 109/60 91 Room Air 2 05/28/24 03:32 05/28/24 03:32 05/28/24 03:32 05/28/24 03:32 05/28/24 07:38 05/28/24 07:38 05/27/24 18:12 Oxygen Flow Rate (L/min) 2 Oxygen Delivery Method Room Air Weight: 256 lb 6.362 oz Body Mass Index (BMI) 38.0 Intake & Output: Intake and Output for Last 24 Hours 05/26/24 05/27/24 05/28/24 23:59 23:59 23:59 Intake Total 2715.3 / 2715.3 895.3 / 895.3 1720 / 1720 Balance 2715.3 / 2715.3 895.3 / 895.3 1720 / 1720 Lab / Micro Data 05/27/24 04:15 05/27/24 04:15 Labs: Laboratory Results - last 24 hr 05/27/24 04:15: Miscellaneous Test COMMENT 05/27/24 10:54: POC Glucose 89 05/27/24 21:00: POC Glucose 94 05/28/24 06:16: POC Glucose 120 H Micro: Microbiology 05/26/24 Unknown Wound Abcess - Right Hand Gram Stain - Final 05/26/24 Unknown Wound Abcess - Right Hand Wound Culture - Preliminary No growth-Final to follow 05/26/24 Unknown Wound Abcess - Right Hand Gram Stain - Final 05/26/24 Unknown Wound Abcess - Right Hand Wound Culture - Preliminary No growth-Final to follow Rhythm Strip Rhythm Strip: Sinus Rhythm Rate: 67 Ectopy: None Physical Exam Narrative Right upper Extremity Inspection/Palpation: No pain in the palm with passive extension/excursion of the FDP at the DIP joint of the small finger and the long finger today. No pain with passive extension/excursion of any of the other fingers/flexor tendons, and no pain in the palm/wrist/CT in general with regards to palpation. The pain is isolated to around the incisions. There is no drainage from the incisions (bleeding skin edges when packing removed, but no purulence). Motor: Able to bend and extend all MP, PIP, and DIP joints. Sensory: Intact to light touch on the radial and ulnar borders. Vascular: Finger tips are warm and well perfused with <2 second capillary refill. Assessment & Plan Assessment/Plan (1) Flexor tenosynovitis of finger: (2) Cellulitis of hand, right: (3) Abscess of hand, right: PLAN: Plan Continue three times per day dial soap soaks No surgery today OK for diet ID following. Cultures from this admission negative thus far. Once Mycobacterium resulted on 26 May 2024 from the 05 May 2024 cultures, the patient 's antibiotic regimen was altered to azithromycin 5 mg p.o. daily, linezolid 600 mg twice daily, meropenem 1 g IV every 8, amikacin 15 mg/kg IV daily. Plastics to continue to follow. Charges/Coding Procedures Integumentary [id number]: [id number] Global Visit
[2024-05-28] MEDS: Furosemide 20 MG Tablet 60 MG PO (08:07)
[2024-05-28] MEDS: Linezolid 600 MG Tablet PO ×2 (08:07→22:08)
[2024-05-28] MEDS: Enoxaparin 40 MG/0.4 ML Syringe SC (08:07)
[2024-05-28] MEDS: Azithromycin 250 MG Tablet 500 MG PO (08:08)
[2024-05-28] MEDS: Ascorbic Acid 500 MG Tablet 1000 MG PO ×2 (08:08→16:42)
[2024-05-28] MEDS: Aspirin E.C. 81 MG Tablet PO (08:08)
[2024-05-28] MEDS: DULoxetine Hcl 60 MG Capsule PO (08:08)
[2024-05-28] MEDS: Multivitamins,Therapeutic Tablet 1 TABLET PO (08:08)
[2024-05-28] MEDS: Isosorbide Mononitrate 30 MG Tablet PO ×2 (08:08→22:06)
[2024-05-28] MEDS: Losartan Potassium 25 MG Tablet PO (08:08)
[2024-05-28] MEDS: Pantoprazole Sodium 40 MG Tablet PO (08:08)
[2024-05-28] MEDS: Lactobacillis Acidophilus 1 CAP PO ×4 (08:08→22:06)
[2024-05-28] MEDS: Zinc Sulfate 50 mg zinc (220 mg) ORAL capsule PO (08:09)
[2024-05-28] MEDS: Acetaminophen 325 MG Tablet 650 MG PO ×2 (08:23→16:47)
[2024-05-28 08:37] LABS: Absolute Lymphocyte Count 2.19 X10^3/uL (0.83-4.51); Basophil# 0.02 X10^3/uL; Basophil% 0.4 % (0-1); Eosinophil# 0.21 X10^3/uL; Eosinophils% 4.4 % (0-5); Hematocrit 42.1 % (40-54); Lymphocyte # 2.19 X10^3/ul (0.83-4.51); Lymphocyte % 46.2 % (19-41); Mean Corp Hgb Conc 33.3 g/dL (32-36); Mean Corpuscular Volume 102.2 fL (80-94); Mean Platelet Vol. 10.6 fl (6.2-12.0); Monocyte# 0.33 X10^3/uL; NRBC Flagged by Analyzer 0 % (0-5); Neutrophil # 1.98 X10^3/uL (2.7-7.7); Neutrophil % 41.8 % (47-70); Platelet Count 129 K/mm3 (150-450); RBC Distribution Width SD 49.1 fl (35.1-43.9); Red Blood Count 4.12 M/mm3 (4.6-6.2); White Blood Count 4.7 K/mm3 (4.4-11.0)
[2024-05-28 09:08] LABS: ALB/GLOB Ratio 1.4 RATIO (0.9-2.4); AST(SGOT) 51 U/L (15-37); Alanine Aminotransfer ALT/SGPT 61 U/L (16-61); Albumin, Serum 3.6 g/dL (3.2-5.0); Alkaline Phosphatase 74 U/L (45-117); Anion Gap 4 (5-15); BUN 9 mg/dL (7-18); BUN/Creat Ratio 11.6 RATIO (10-20); Calcium,Total 8.4 mg/dL (8.5-10.1); Chloride 104 mmol/L (98-107); Creatinine, Serum 0.78 mg/dL (0.70-1.30); EST Glomerular Filtration Rate 109 mL/min (>60); Est Glom Filt Rate - Afr Amer 132 mL/min (>60); Estimated Creatinine Clearance 131.45 ml/min; Globulin 2.6 g/dL (2.2-4.2); Glucose 95 mg/dL (74-106); Potassium 3.8 mmol/L (3.5-5.1); Protein, Total 6.2 g/dL (6.4-8.2); Sodium Level 137 mmol/L (136-145)
[2024-05-28] MEDS: Clopidogrel Bisulfate 75 MG Tablet PO (10:51)
[2024-05-28 12:22] LABS: Bedside Glucose 111 mg/dL (74-106)
[2024-05-28] MEDS: WATER IV (12:32)
[2024-05-28] MEDS: DEXTROSE 5% IV (12:32)
[2024-05-28] MEDS: AMIKACIN SULFATE IV (12:32)
[2024-05-28] MEDS: Ipratropium/Albuterol Sulfate 3 ML AMPUL.NEB INHALATION ×2 (13:37→19:40)
[2024-05-28 17:01] LABS: Bedside Glucose 127 mg/dL (74-106)
[2024-05-28] MEDS: 0.9% Saline Lock 10 ML Syringe IV (18:24)
[2024-05-28] MEDS: Budesonide Respules 0.5 MG/2 ML AMPUL.NEB. INHALATION (19:40)
[2024-05-28] MEDS: Atorvastatin Calcium 40 MG Tablet PO (22:07)
[2024-05-28 23:40] LABS: Bedside Glucose 127 mg/dL (74-106)
[2024-05-29 03:23] VITALS: BP 116/66; PULSE 65; RESP 20; TEMP 36.8; O2SAT 97
[2024-05-29] MEDS: oxyCODONE 5 MG Tablet 10 MG PO ×4 (03:32→22:46)
[2024-05-29] MEDS: Acetaminophen 325 MG Tablet 650 MG PO ×2 (03:32→22:46)
[2024-05-29 05:14] VITALS: BMI 38.0
[2024-05-29 05:19] LABS: Absolute Lymphocyte Count 1.64 X10^3/uL (0.83-4.51); Absolute Neutrophil Count 1.7 X10^3/uL (2.0-7.7); Basophil# 0.02 X10^3/uL; Basophil% 0.5 % (0-1); Eosinophil# 0.17 X10^3/uL; Eosinophils% 4.5 % (0-5); Hematocrit 38.5 % (40-54); Hemoglobin 13.3 g/dL (13.0-16.5); Lymphocyte # 1.64 X10^3/ul (0.83-4.51); Lymphocyte % 42.9 % (19-41); Mean Corp Hgb Conc 34.5 g/dL (32-36); Mean Corpuscular Hgb 34.5 pg (27.0-32.0); Mean Platelet Vol. 10.9 fl (6.2-12.0); Monocyte# 0.32 X10^3/uL; Monocyte% 8.4 % (0-10); NRBC Flagged by Analyzer 0 % (0-5); Neutrophil # 1.67 X10^3/uL (2.7-7.7); Neutrophil % 43.7 % (47-70); Platelet Count 126 K/mm3 (150-450); RBC Distribution Width CV 12.6 % (11.6-14.6); RBC Distribution Width SD 46.5 fl (35.1-43.9); Red Blood Count 3.85 M/mm3 (4.6-6.2); White Blood Count 3.8 K/mm3 (4.4-11.0)
--- NOTE | 2024-05-29 06:28 | PCM.PN.HOSP ---
Reason for Visit Reason for Visit: Diagnoses Type 2 diabetes mellitus with diabetic polyneuropathy (05/23/24) Obesity, unspecified (05/23/24) Obstructive sleep apnea (adult) (pediatric) (05/23/24) Cutaneous abscess of right hand (05/23/24) Cellulitis of right upper limb (05/23/24) Unspecified synovitis and tenosynovitis, unspecified hand (05/23/24) Unspecified open wound of right hand, subsequent encounter (05/23/24) Tobacco use (05/23/24) senior care (current) use of insulin (05/23/24) Subjective Subjective Patient with no acute events overnight per self and per nursing report. Patient this morning with evaluation by plastic surgery and removal of 1 drain with significant soaking with currently reported severe pain 8-10 out of 10 in severity currently with pain medication being given. Patient denies fevers, chills, nausea, emesis, abdominal pain, chest pain or dyspnea. Objective Data Objective Data Vital Signs: Vital Signs Temp Pulse Resp BP Pulse Ox O2 Del Method O2 Flow Rate 98.2 F 65 20 H 116/66 97 Nasal Cannula 3 05/29/24 03:23 05/29/24 03:23 05/29/24 03:23 05/29/24 03:23 05/29/24 03:23 05/29/24 03:23 05/29/24 03:23 Oxygen Flow Rate (L/min) 3 Oxygen Delivery Method Nasal Cannula Weight: 256 lb 6.362 oz Body Mass Index (BMI) 38.0 Intake & Output: Intake and Output for Last 24 Hours 05/27/24 05/28/24 05/29/24 23:59 23:59 23:59 Intake Total 895.3 / 895.3 3243.05 / 3243.05 120 / 120 Balance 895.3 / 895.3 3243.05 / 3243.05 120 / 120 Lab / Micro Data 05/29/24 04:40 05/29/24 04:40 Labs: Laboratory Results - last 24 hr 05/27/24 04:15: Miscellaneous Test COMMENT 05/28/24 06:16: POC Glucose 120 H 05/28/24 06:50: WBC 4.7, RBC 4.12 L, Hgb 14.0, Hct 42.1, MCV 102.2 H, MCH 34.0 H, MCHC 33.3, RDW Std Deviation 49.1 H, RDW Coeff of Autumn 13.0, Plt Count 129 L, MPV 10.6, Immature Gran % (Auto) 0.200, Neut % (Auto) 41.8 L, Lymph % (Auto) 46.2 H, [place] % (Auto) 7.0, Eos % (Auto) 4.4, Baso % (Auto) 0.4, Absolute Neuts (auto) 2.0, Absolute Lymphs (auto) 2.19, Nucleated RBC % 0, Sodium 137, Potassium 3.8, Chloride 104, Carbon Dioxide 29.0, Anion Gap 4 L, BUN 9, Creatinine 0.78, Estim Creat Clear Calc 131.45, Est GFR (MDRD) Af Amer 132, Est GFR (MDRD) Non-Af 109, BUN/Creatinine Ratio 11.6, Glucose 95, Calcium 8.4 L, Total Bilirubin 0.60, AST 51 H, ALT 61, Alkaline Phosphatase 74, Total Protein 6.2 L, Albumin 3.6, Globulin 2.6, Albumin/Globulin Ratio 1.4 05/28/24 11:58: POC Glucose 111 H 05/28/24 16:39: POC Glucose 127 H 05/28/24 22:04: POC Glucose 127 H 05/29/24 04:40: WBC 3.8 L, RBC 3.85 L, Hgb 13.3, Hct 38.5 L, MCV 100.0 H, MCH 34.5 H, MCHC 34.5, RDW Std Deviation 46.5 H, RDW Coeff of Autumn 12.6, Plt Count 126 L, MPV 10.9, Immature Gran % (Auto) 0.000, Neut % (Auto) 43.7 L, Lymph % (Auto) 42.9 H, [place] % (Auto) 8.4, Eos % (Auto) 4.5, Baso % (Auto) 0.5, Absolute Neuts (auto) 1.7 L, Absolute Lymphs (auto) 1.64, Nucleated RBC % 0 Micro: Microbiology 05/26/24 Unknown Wound Abcess - Right Hand Gram Stain - Final 05/26/24 Unknown Wound Abcess - Right Hand Wound Culture - Preliminary No growth-Final to follow 05/26/24 Unknown Wound Abcess - Right Hand Gram Stain - Final 05/26/24 Unknown Wound Abcess - Right Hand Wound Culture - Preliminary No growth-Final to follow Rhythm Strip Rhythm Strip: Sinus Rhythm Rate: 67 Ectopy: None Physical Exam Narrative Physical Examination: General: Awake, alert, oriented x 3 and cooperative, laying in the MS bed, arm elevated, notes pain currently controlled. Skin: Normal color, normal turgor, no icterus, no cyanosis except for bilateral lower extremity venous stasis skin changes, right upper extremity recently soaked, recent drain removed, open section from operative intervention with no marked bleeding or any purulent drainage, swelling to the hand evident, closed region on the small digit, ecchymoses evident. HEENT: AT/NC, EOMI, PERRLA, MMM. Lungs: CTA bilaterally, moderate effort, mild decrease BL bases, no rales, ronchi or wheezing. Heart: Regular rate and rhythm; no gallop, rub audible. Abdomen: Soft, obese, NTTP, ND, normal BS. Extremities: No cyanosis, no clubbing, see skin. Neurological: Patient awake, alert, oriented as noted, cognitive function intact; pupils equally reactive to light and accommodation, cranial nerves grossly normal, moving all 4 extremities although some limitation given right discomfort although currently lessened, elevating his right upper extremity in bed, strength mildly to moderately globally decreased Psychiatric: Affect appears currently uncomfortable, no acute evidence of depressive or anxiety feelings. Assessment & Plan Assessment/Plan (1) Cellulitis of hand, right: (2) Abscess of hand, right: PLAN: Plan The patient is a 58 y/o M w/ PMHx: Hypothyroidism, Obesity, HTN, HLD, CANDELARIA on BIPAP, Diabetes mellitus type II w/ chronic neuropathy, Tobacco use, COPD, CAD s/p PCI, Hx TIA/CVA, Hx Seizures, RLS, Anxiety and Depression, GERD w/ Hx GI bleed, recently diagnosed abscess of the Right hand with flexor tenosynovitis 3rd digit s/p surgical I&D by Dr. Edwards 04/27/24 with follow-up I&D by Dr. Edwards 04/05/24 who presents to the [facility] ED on 05/23/2024 with abscess/swelling to the fifth digit of the right hand. #1. 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 05/05/24 Cx from outpatient finally grew and finalized Mycobacterium abscessus. Initially been treated with broad-spectrum antibiotic therapy with IV vancomycin and IV Zosyn with ID following. Once Mycobacterium resulted 05/26/2024 patient regimen altered to azithromycin 5 mg p.o. daily, linezolid 600 mg twice daily, meropenem 1 g IV every 8, amikacin 15 mg/kg IV daily which was discussed with pharmacy for appropriate dosing. 05/26/2024 OR with I&D flexor tendon sheath right long finger, I&D flexor tendon sheath right small finger with atypical appearance left open with packing. 05/27/2020 return to the OR with repeat I&D flexor tendon sheath right long finger and I&D flexor tendon sheath right small finger. Awaiting or culture finalization from the OR in addition to ID request for susceptibility testing on the mycobacteria which is pending. 05/28/2024 dressing takedown and evaluation by plastic surgery with no marked bleeding reported per patient thus will reinitiate Plavix as has been held as notable bleeding day prior. 05/28/24 Hgb 13.3. 05/29/24 restart chemoprophylaxis. PICC requested, expect placement 05/29/24 given notable abx therapy and expected longer term. 05/29/2024 reevaluation by plastic surgery with drain removed and from discussion may need follow-up operative intervention with potential closure of the open section. #2. Thrombocytopenia, Chronic: 05/28/24 Plts 129, baseline 100 range, 05/29/2024 platelets 126, continue to trend, cautious use chemoprophylaxis. #3. Hypothyroidism with abnormal TSH: Admission TSH 6.790, follow-up free T4 normal 0.91. Encourage continued outpatient follow-up with repeat thyroid function studies in 6 to 8 weeks. #4. CAD: Status post PCI, continue baby aspirin, statin, losartan, not on beta-coco therapy per current list, clarifying. 05/28/2024 dressing takedown and evaluation by plastic surgery with no marked bleeding reported per patient thus will reinitiate Plavix as has been held as notable bleeding day prior. #5. History TIA/CVA: Will continue aspirin, statin, hypertensive regimen, diabetic regimen with adjustments as noted. 05/28/2024 dressing takedown and evaluation by plastic surgery with no marked bleeding reported per patient thus will reinitiate Plavix as has been held as notable bleeding day prior. #6. Diabetes mellitus type II with chronic neuropathy: Hold oral home regimen, continue home insulin regimen, ADA diet once allowed, accu checks w/ ISS, continue home gabapentin regimen. Magnesium level normal. #7. Chronic COPD: Will temporarily hold home inhalers in the interim transition to ATC budesonide therapy, PRN albuterol, HOB, IS parameters. #8. Hypertension: Continue home regimen including isosorbide, Lasix, losartan with hold parameters, PRN hydralazine. #9. Hyperlipidemia: We will continue patient on statin therapy. #10. Anxiety and depression: We will continue patient home Cymbalta and mirtazapine regimen #11. Tobacco Abuse: Encouraged cessation, inpatient consultation per RT, NR if desired. #12. Obesity: Weight loss and lifestyle changes encouraged. #13. GERD with history GI bleed: We will continue patient on PPI. #14. Chart reported history of seizures: Noted remote history of seizures, not on any anti-epileptic drugs, continue to monitor. #15. Restless leg syndrome: Per current list does not appear to be on medication, monitor and add if needed. #16. CANDELARIA: BiPAP nightly. #17. DVT prophylaxis: SCDs. 05/29/2024 will reinitiate chemoprophylaxis. Charges/Coding Visit Charges Inpatient E&M: 89106 Subs Hosp L2
[2024-05-29] MEDS: Meropenem 1 GM in 0.9% Normal Saline (100mL MB+) 100 ML IV ×2 (06:29→17:02)
[2024-05-29 06:34] VITALS: BP 118/67; PULSE 62; RESP 20; TEMP 37.2; O2SAT 96
[2024-05-29] MEDS: 0.9% Saline Lock 10 ML Syringe IV ×3 (06:40→17:27)
[2024-05-29] MEDS: HYDROmorphone 1 MG/ML Syringe IV ×3 (06:40→17:27)
[2024-05-29] MEDS: Gabapentin 800 MG Tablet PO ×3 (06:40→22:46)
[2024-05-29 06:45] LABS: ALB/GLOB Ratio 1.6 RATIO (0.9-2.4); AST(SGOT) 47 U/L (15-37); Alanine Aminotransfer ALT/SGPT 61 U/L (16-61); Albumin, Serum 3.4 g/dL (3.2-5.0); Alkaline Phosphatase 69 U/L (45-117); Anion Gap 2 (5-15); BUN 9 mg/dL (7-18); BUN/Creat Ratio 11.6 RATIO (10-20); Calcium,Total 8.8 mg/dL (8.5-10.1); Chloride 104 mmol/L (98-107); Creatinine, Serum 0.78 mg/dL (0.70-1.30); EST Glomerular Filtration Rate 109 mL/min (>60); Est Glom Filt Rate - Afr Amer 132 mL/min (>60); Estimated Creatinine Clearance 131.45 ml/min; Globulin 2.1 g/dL (2.2-4.2); Glucose 106 mg/dL (74-106); Potassium 3.6 mmol/L (3.5-5.1); Protein, Total 5.5 g/dL (6.4-8.2); Sodium Level 138 mmol/L (136-145)
[2024-05-29] MEDS: Levothyroxine 75 MCG Tablet PO (06:46)
[2024-05-29 07:20] LABS: Bedside Glucose 97 mg/dL (74-106)
[2024-05-29] MEDS: Ipratropium/Albuterol Sulfate 3 ML AMPUL.NEB INHALATION ×2 (07:26→19:51)
[2024-05-29] MEDS: Budesonide Respules 0.5 MG/2 ML AMPUL.NEB. INHALATION ×2 (07:26→19:52)
[2024-05-29 07:30] VITALS: PULSE 55; RESP 18
[2024-05-29] MEDS: Aspirin E.C. 81 MG Tablet PO (08:17)
[2024-05-29] MEDS: Multivitamins,Therapeutic Tablet 1 TABLET PO (08:18)
--- NOTE | 2024-05-29 09:29 | PN.SURG_ITS ---
Subjective Subjective Doing well. PICC line getting placed today. Pain better. Objective Data Objective Data Vital Signs: Vital Signs Temp Pulse Resp BP Pulse Ox O2 Del Method O2 Flow Rate 98.9 F 55 L 18 118/67 96 Room Air 2 05/29/24 06:34 05/29/24 07:30 05/29/24 07:30 05/29/24 06:34 05/29/24 06:34 05/29/24 08:34 05/29/24 06:34 Oxygen Flow Rate (L/min) 2 Oxygen Delivery Method Room Air Weight: 256 lb 6.362 oz Body Mass Index (BMI) 38.0 Intake & Output: Intake and Output for Last 24 Hours 05/27/24 05/28/24 05/29/24 23:59 23:59 23:59 Intake Total 895.3 / 895.3 3243.05 / 3243.05 320 / 320 Balance 895.3 / 895.3 3243.05 / 3243.05 320 / 320 Lab / Micro Data 05/29/24 04:40 05/29/24 04:40 Labs: Laboratory Results - last 24 hr 05/28/24 11:58: POC Glucose 111 H 05/28/24 16:39: POC Glucose 127 H 05/28/24 22:04: POC Glucose 127 H 05/29/24 04:40: WBC 3.8 L, RBC 3.85 L, Hgb 13.3, Hct 38.5 L, MCV 100.0 H, MCH 34.5 H, MCHC 34.5, RDW Std Deviation 46.5 H, RDW Coeff of Autumn 12.6, Plt Count 126 L, MPV 10.9, Immature Gran % (Auto) 0.000, Neut % (Auto) 43.7 L, Lymph % (Auto) 42.9 H, [place] % (Auto) 8.4, Eos % (Auto) 4.5, Baso % (Auto) 0.5, Absolute Neuts (auto) 1.7 L, Absolute Lymphs (auto) 1.64, Nucleated RBC % 0, Sodium 138, Potassium 3.6, Chloride 104, Carbon Dioxide 32.0, Anion Gap 2 L, BUN 9, Creatinine 0.78, Estim Creat Clear Calc 131.45, Est GFR (MDRD) Af Amer 132, Est GFR (MDRD) Non-Af 109, BUN/Creatinine Ratio 11.6, Glucose 106, Calcium 8.8, Total Bilirubin 0.40, AST 47 H, ALT 61, Alkaline Phosphatase 69, Total Protein 5.5 L, Albumin 3.4, Globulin 2.1 L, Albumin/Globulin Ratio 1.6 05/29/24 06:48: POC Glucose 97 Micro: Microbiology 05/26/24 Unknown Wound Abcess - Right Hand Gram Stain - Final 05/26/24 Unknown Wound Abcess - Right Hand Wound Culture - Preliminary No growth-Final to follow 05/26/24 Unknown Wound Abcess - Right Hand Anaerobic Culture - Preliminary No growth in 48 hours. 05/26/24 Unknown Wound Abcess - Right Hand Gram Stain - Final 05/26/24 Unknown Wound Abcess - Right Hand Wound Culture - Preliminary No growth-Final to follow 05/26/24 Unknown Wound Abcess - Right Hand Anaerobic Culture - Preliminary No growth in 48 hours. 05/27/24 16:48 Wound Abcess - Finger Wound Culture - Preliminary 05/27/24 16:35 Wound Abcess - Finger Wound Culture - Preliminary Rhythm Strip Rhythm Strip: Sinus Rhythm Rate: 67 Ectopy: None Physical Exam Narrative Right upper Extremity Inspection/Palpation: No pain in the palm with passive extension/excursion of the FDP at the DIP joint of the small finger and the long finger today. No pain with passive extension/excursion of any of the other fingers/flexor tendons, and no pain in the palm/wrist/CT in general with regards to palpation. The pain is isolated to around the incisions. There is no drainage from the incisions (bleeding skin edges when packing removed, but no purulence). 0 Motor: Able to bend and extend all MP, PIP, and DIP joints. Sensory: Intact to light touch on the radial and ulnar borders. Vascular: Finger tips are warm and well perfused with <2 second capillary refill. Assessment & Plan Assessment/Plan (1) Flexor tenosynovitis of finger: PLAN: OK for plavix, ASA, and lovenox Agree with ID consult Continue TID soaks and rest and elevation Charges/Coding Procedures Integumentary [id number]: [id number] Global Visit
[2024-05-29] MEDS: Ascorbic Acid 500 MG Tablet 1000 MG PO ×2 (09:31→17:13)
[2024-05-29] MEDS: Lactobacillis Acidophilus 1 CAP PO ×4 (09:32→22:45)
[2024-05-29] MEDS: Furosemide 20 MG Tablet 60 MG PO (09:32)
[2024-05-29] MEDS: Zinc Sulfate 50 mg zinc (220 mg) ORAL capsule PO (09:33)
[2024-05-29] MEDS: Isosorbide Mononitrate 30 MG Tablet PO ×2 (09:33→22:45)
[2024-05-29] MEDS: Pantoprazole Sodium 40 MG Tablet PO (09:34)
[2024-05-29] MEDS: Azithromycin 250 MG Tablet 500 MG PO (09:34)
[2024-05-29] MEDS: Losartan Potassium 25 MG Tablet PO (09:34)
[2024-05-29] MEDS: DULoxetine Hcl 60 MG Capsule PO (09:34)
[2024-05-29] MEDS: Linezolid 600 MG Tablet PO ×2 (09:35→22:46)
[2024-05-29] MEDS: Enoxaparin 40 MG/0.4 ML Syringe SC (09:35)
[2024-05-29] MEDS: Clopidogrel Bisulfate 75 MG Tablet PO (09:35)
[2024-05-29] MEDS: Fluticasone 0.05% 1 SPRAY NASAL.SRY NASAL (09:36)
[2024-05-29 11:57] LABS: Bedside Glucose 92 mg/dL (74-106)
--- NOTE | 2024-05-29 14:50 | RAD_ITS ---
STUDY: X-RAY CHEST REASON FOR EXAM: Male, 58 years old. CHEST PAIN picc placement TECHNIQUE: XR Chest 1 View COMPARISON: 11/23/2023 FINDINGS: There is no demonstrated pleural abnormality. There is no pneumothorax. Left PICC line. Tip extends down the left midclavicular line. This may be within the left mammary artery. Normal size heart. Normal mediastinum and darren. Normal visualized pulmonary arteries. Normal visualized aortic arch and descending thoracic aorta. Normal visualized thoracic spine. Normal visualized ribs, clavicles, and shoulders. There are no acute findings of the upper abdomen. RAD/CXR for Line Placement IMPRESSION: Left PICC line. Tip extends down the left midclavicular line. This may be within the left mammary artery. Electronically Signed: Zion Hammond MD at 15:29 EST ,
--- NOTE | 2024-05-29 16:51 | NURSING ---
Dynamic Access Nurse Sharon Doss completing this document. Unable to place PICC successfully Difficulty getting Line to drop into RSVC. Line appears to be be dropping into the LSVC. Multiple trouble shooting attempts made. It is unclear if tip resides in the RSVC and am unable to obtain clear 3cg to verify placement therefore XRAY will need to be completed prior to using PICC. CXR was completed and shows tip in the L mammary artery however after reviewing film with physician it is determined line resids in the LSVC and not the artery as the catheter is below the level of the clavicle. Orders to remove current PICC and place midline for short term use until central line can be placed. It is recommended patient have all future PICCs placed under fluoroscopy or a CVC be placed. Charge nurse and physician aware. Midline placed per orders. This note was completed and signed by Dynamic Access NurseSharon.
[2024-05-29] MEDS: WATER IV (17:07)
[2024-05-29] MEDS: DEXTROSE 5% IV (17:07)
[2024-05-29] MEDS: AMIKACIN SULFATE IV (17:07)
[2024-05-29 17:15] LABS: Bedside Glucose 124 mg/dL (74-106)
[2024-05-29 18:26] VITALS: BP 105/70; PULSE 56; RESP 16; TEMP 36.6; O2SAT 94
[2024-05-29 19:52] VITALS: PULSE 57; RESP 18
[2024-05-29 22:40] VITALS: BP 118/65; PULSE 60; RESP 18; TEMP 36.6; O2SAT 97
[2024-05-29] MEDS: Atorvastatin Calcium 40 MG Tablet PO (22:46)
[2024-05-30] VITALS (8 sets, daily range): BP systolic 110–125; BP diastolic 52–69; PULSE 55–65; RESP 16–20; TEMP 36.4–37; O2SAT 92–95; BMI 38.0
[2024-05-30] MEDS: Meropenem 1 GM in 0.9% Normal Saline (100mL MB+) 100 ML IV ×2 (00:03→05:33)
[2024-05-30] MEDS: HYDROmorphone 1 MG/ML Syringe IV (01:35)
[2024-05-30] MEDS: 0.9% Saline Lock 10 ML Syringe IV (01:35)
[2024-05-30 01:46] LABS: Bedside Glucose 125 mg/dL (74-106)
[2024-05-30] MEDS: Acetaminophen 325 MG Tablet 650 MG PO ×2 (05:28→21:08)
[2024-05-30] MEDS: Gabapentin 800 MG Tablet PO ×3 (05:28→21:07)
[2024-05-30] MEDS: oxyCODONE 5 MG Tablet 10 MG PO ×4 (05:28→21:08)
[2024-05-30] MEDS: Levothyroxine 75 MCG Tablet PO (05:32)
[2024-05-30 06:27] LABS: Absolute Lymphocyte Count 2.06 X10^3/uL (0.83-4.51); Absolute Neutrophil Count 1.6 X10^3/uL (2.0-7.7); Basophil# 0.01 X10^3/uL; Basophil% 0.2 % (0-1); Eosinophil# 0.19 X10^3/uL; Eosinophils% 4.5 % (0-5); Lymphocyte # 2.06 X10^3/ul (0.83-4.51); Lymphocyte % 49.2 % (19-41); Mean Corp Hgb Conc 34.1 g/dL (32-36); Mean Corpuscular Hgb 34.1 pg (27.0-32.0); Mean Corpuscular Volume 99.8 fL (80-94); Mean Platelet Vol. 10.6 fl (6.2-12.0); Monocyte# 0.29 X10^3/uL; Monocyte% 6.9 % (0-10); NRBC Flagged by Analyzer 0 % (0-5); Neutrophil # 1.63 X10^3/uL (2.7-7.7); Platelet Count 139 K/mm3 (150-450); RBC Distribution Width CV 12.7 % (11.6-14.6); RBC Distribution Width SD 46.6 fl (35.1-43.9); Red Blood Count 4.11 M/mm3 (4.6-6.2); White Blood Count 4.2 K/mm3 (4.4-11.0)
[2024-05-30 06:32] LABS: Bedside Glucose 98 mg/dL (74-106)
[2024-05-30 06:57] LABS: ALB/GLOB Ratio 1.4 RATIO (0.9-2.4); AST(SGOT) 56 U/L (15-37); Alanine Aminotransfer ALT/SGPT 69 U/L (16-61); Albumin, Serum 3.6 g/dL (3.2-5.0); Alkaline Phosphatase 73 U/L (45-117); Anion Gap 6 (5-15); BUN 8 mg/dL (7-18); BUN/Creat Ratio 9.8 RATIO (10-20); Calcium,Total 8.7 mg/dL (8.5-10.1); Chloride 101 mmol/L (98-107); Creatinine, Serum 0.82 mg/dL (0.70-1.30); EST Glomerular Filtration Rate 103 mL/min (>60); Est Glom Filt Rate - Afr Amer 125 mL/min (>60); Estimated Creatinine Clearance 125.03 ml/min; Globulin 2.6 g/dL (2.2-4.2); Glucose 122 mg/dL (74-106); Potassium 3.5 mmol/L (3.5-5.1); Protein, Total 6.2 g/dL (6.4-8.2); Sodium Level 138 mmol/L (136-145)
[2024-05-30] MEDS: Budesonide Respules 0.5 MG/2 ML AMPUL.NEB. INHALATION ×2 (07:14→20:23)
[2024-05-30] MEDS: Ipratropium/Albuterol Sulfate 3 ML AMPUL.NEB INHALATION ×3 (07:14→20:23)
--- NOTE | 2024-05-30 08:31 | PCM.RX.CS ---
Consult Antibiotic Management Pharmacy has been consulted to manage selected antibiotic: Other (AMIKACIN) Type of Intervention Type of Consult: Follow-up Suspected Infection Suspected Infection: Skin/Soft tissue Prior Doses of Antibiotics Prior Doses of Antibiotics Received/Current Regimen: Amikacin 1325 mg Q24H, last dose given 05/29 @ 1707 Labs Labs: Sodium 138 mmol/L (136-145) 05/30/24 05:58 Potassium 3.5 mmol/L (3.5-5.1) 05/30/24 05:58 Chloride 101 mmol/L (98-107) 05/30/24 05:58 Carbon Dioxide 31.0 mmol/L (21.0-32.0) 05/30/24 05:58 Anion Gap 6 (5-15) 05/30/24 05:58 BUN 8 mg/dL (7-18) 05/30/24 05:58 Creatinine 0.82 mg/dL (0.70-1.30) 05/30/24 05:58 Est GFR (MDRD) Af Amer 125 mL/min (>60) 05/30/24 05:58 Est GFR (MDRD) Non-Af 103 mL/min (>60) 05/30/24 05:58 BUN/Creatinine Ratio 9.8 RATIO (10-20) L 05/30/24 05:58 Glucose 122 mg/dL (74-106) H 05/30/24 05:58 Vancomycin Trough 26.2 ug/mL (5.0-15.0) H 05/24/24 21:54 Random Vancomycin 13.8 ug/mL (0.0-15.0) 05/25/24 05:50 Microbiology Microbiology: Microbiology 05/27/24 16:48 Wound Abcess - Finger Gram Stain - Final 05/27/24 16:35 Wound Abcess - Finger Gram Stain - Final 05/26/24 Unknown Wound Abcess - Right Hand Gram Stain - Final 05/26/24 Unknown Wound Abcess - Right Hand Wound Culture - Preliminary No growth-Final to follow 05/26/24 Unknown Wound Abcess - Right Hand Anaerobic Culture - Preliminary No growth in 48 hours. 05/26/24 Unknown Wound Abcess - Right Hand Gram Stain - Final 05/26/24 Unknown Wound Abcess - Right Hand Wound Culture - Preliminary No growth-Final to follow 05/26/24 Unknown Wound Abcess - Right Hand Anaerobic Culture - Preliminary No growth in 48 hours. Dosing Weight Weight used for dosin kg Estimated Creatinine Clearance Estimated Creatinine Clearance: ~ 125 Goal Trough Goal Trough: Other (per nomogram) Pharmacy Plan for Drug Dosing Pharmacy Plan for Drug Dosing: Amikacin random back, drawn 05/27 @ 0415, 15.75 hours after dose was given, level was 2.7 (divided by 3 = 0.9), off the end of the nomogram but extrapolation would indicate fine for 24 hour dosing. No further labs needed unless significant change in renal function. Pharmacy Service will continue to monitor and adjust dosing as required.
--- NOTE | 2024-05-30 08:33 | PCM.PN.SRG ---
Subjective Subjective Patient is doing well. He states his pain is well controlled. Objective Data Objective Data Vital Signs: Vital Signs Temp Pulse Resp BP Pulse Ox O2 Del Method O2 Flow Rate 98.6 F 60 18 113/64 95 Nasal Cannula 2 05/30/24 03:11 05/30/24 07:14 05/30/24 07:14 05/30/24 03:11 05/30/24 07:14 05/30/24 07:14 05/30/24 07:14 Oxygen Flow Rate (L/min) 2 Oxygen Delivery Method Nasal Cannula Weight: 256 lb 6.362 oz Body Mass Index (BMI) 38.0 Intake & Output: Intake and Output for Last 24 Hours 05/28/24 05/29/24 05/30/24 23:59 23:59 23:59 Intake Total 3243.05 / 3243.05 2926.05 / 2926.05 595 / 595 Balance 3243.05 / 3243.05 2926.05 / 2926.05 595 / 595 Lab / Micro Data 05/30/24 05:58 05/30/24 05:58 Labs: Laboratory Results - last 24 hr 05/29/24 11:39: POC Glucose 92 05/29/24 16:57: POC Glucose 124 H 05/29/24 22:50: POC Glucose 125 H 05/30/24 05:30: POC Glucose 98 05/30/24 05:58: WBC 4.2 L, RBC 4.11 L, Hgb 14.0, Hct 41.0, MCV 99.8 H, MCH 34.1 H, MCHC 34.1, RDW Std Deviation 46.6 H, RDW Coeff of Autumn 12.7, Plt Count 139 L, MPV 10.6, Immature Gran % (Auto) 0.200, Neut % (Auto) 39.0 L, Lymph % (Auto) 49.2 H, [place] % (Auto) 6.9, Eos % (Auto) 4.5, Baso % (Auto) 0.2, Absolute Neuts (auto) 1.6 L, Absolute Lymphs (auto) 2.06, Nucleated RBC % 0, Sodium 138, Potassium 3.5, Chloride 101, Carbon Dioxide 31.0, Anion Gap 6, BUN 8, Creatinine 0.82, Estim Creat Clear Calc 125.03, Est GFR (MDRD) Af Amer 125, Est GFR (MDRD) Non-Af 103, BUN/Creatinine Ratio 9.8 L, Glucose 122 H, Calcium 8.7, Total Bilirubin 0.50, AST 56 H, ALT 69 H, Alkaline Phosphatase 73, Total Protein 6.2 L, Albumin 3.6, Globulin 2.6, Albumin/Globulin Ratio 1.4 Micro: Microbiology 05/27/24 16:48 Wound Abcess - Finger Gram Stain - Final 05/27/24 16:35 Wound Abcess - Finger Gram Stain - Final 05/26/24 Unknown Wound Abcess - Right Hand Gram Stain - Final 05/26/24 Unknown Wound Abcess - Right Hand Wound Culture - Preliminary No growth-Final to follow 05/26/24 Unknown Wound Abcess - Right Hand Anaerobic Culture - Preliminary No growth in 48 hours. 05/26/24 Unknown Wound Abcess - Right Hand Gram Stain - Final 05/26/24 Unknown Wound Abcess - Right Hand Wound Culture - Preliminary No growth-Final to follow 05/26/24 Unknown Wound Abcess - Right Hand Anaerobic Culture - Preliminary No growth in 48 hours. Radiography Diagnostic Testing: Radiology Impression Chest X-Ray 05/29/24 14:50 IMPRESSION: Left PICC line. Tip extends down the left midclavicular line. This may be within the left mammary artery. Electronically Signed: Zion Hammond MD at 15:29 EST Reading Location ID and State: [facility] / [place] , Service support , Rhythm Strip Rhythm Strip: Sinus Rhythm Rate: 67 Ectopy: None Physical Exam Narrative He is able to bend and extend his fingers (MP, PIP, DIP joints). Pain around incision sites. Swelling is improving. Fingers are pink, warm, with capillary refill <2 seconds. Assessment & Plan Assessment/Plan (1) Flexor tenosynovitis of finger: PLAN: Plan Patient doing well with hand soaks TID (and packing with iodoform gauze in between soaks). ID consulted and managing antibiotics for AFB positive and Mycobacterium. Patient on Linezolid Meropenem, Azithromycin and Amikacin. Discussed plan with Dr. Edwards. If patient continues to do well, Dr. Edwards will plan on delayed primary closure tomorrow.
--- NOTE | 2024-05-30 08:37 | WOUNDNOTE ---
wound photo: right hand
[2024-05-30] MEDS: Enoxaparin 40 MG/0.4 ML Syringe SC (09:16)
[2024-05-30] MEDS: Ascorbic Acid 500 MG Tablet 1000 MG PO ×2 (09:16→16:57)
[2024-05-30] MEDS: Multivitamins,Therapeutic Tablet 1 TABLET PO (09:17)
[2024-05-30] MEDS: Aspirin E.C. 81 MG Tablet PO (09:17)
[2024-05-30] MEDS: DULoxetine Hcl 60 MG Capsule PO (09:18)
[2024-05-30] MEDS: Losartan Potassium 25 MG Tablet PO (09:18)
[2024-05-30] MEDS: Lactobacillis Acidophilus 1 CAP PO ×4 (09:18→21:08)
[2024-05-30] MEDS: Fluticasone 0.05% 1 SPRAY NASAL.SRY NASAL (09:19)
[2024-05-30] MEDS: Isosorbide Mononitrate 30 MG Tablet PO ×2 (09:20→21:09)
[2024-05-30] MEDS: Pantoprazole Sodium 40 MG Tablet PO (09:21)
[2024-05-30] MEDS: Clopidogrel Bisulfate 75 MG Tablet PO (09:21)
[2024-05-30] MEDS: Furosemide 20 MG Tablet 60 MG PO (09:21)
[2024-05-30] MEDS: Linezolid 600 MG Tablet PO ×2 (09:22→21:09)
[2024-05-30] MEDS: Azithromycin 250 MG Tablet 500 MG PO (09:22)
--- NOTE | 2024-05-30 12:09 | PN.HOSP_ITS ---
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 Patient was sitting up comfortably at edge of bed, conversing normally, in no acute distress. Denied any right hand pain or discomfort today. Denied any fevers or chills. No other new concerns today. Objective Data Objective Data Vital Signs: Vital Signs Temp Pulse Resp BP Pulse Ox O2 Del Method O2 Flow Rate 97.6 F L 58 L 17 110/69 92 Room Air 2 05/30/24 09:00 05/30/24 09:00 05/30/24 09:00 05/30/24 09:00 05/30/24 09:00 05/30/24 09:00 05/30/24 07:14 Oxygen Flow Rate (L/min) 2 Oxygen Delivery Method Room Air Weight: 116.3 kg Body Mass Index (BMI) 38.0 Intake & Output: Intake and Output for Last 24 Hours 05/28/24 05/29/24 05/30/24 23:59 23:59 23:59 Intake Total 3243.05 / 3243.05 2926.05 / 2926.05 715 / 715 Balance 3243.05 / 3243.05 2926.05 / 2926.05 715 / 715 Lab / Micro Data 05/30/24 05:58 05/30/24 05:58 Labs: Laboratory Results - last 24 hr 05/29/24 16:57: POC Glucose 124 H 05/29/24 22:50: POC Glucose 125 H 05/30/24 05:30: POC Glucose 98 05/30/24 05:58: WBC 4.2 L, RBC 4.11 L, Hgb 14.0, Hct 41.0, MCV 99.8 H, MCH 34.1 H, MCHC 34.1, RDW Std Deviation 46.6 H, RDW Coeff of Autumn 12.7, Plt Count 139 L, MPV 10.6, Immature Gran % (Auto) 0.200, Neut % (Auto) 39.0 L, Lymph % (Auto) 49.2 H, [place] % (Auto) 6.9, Eos % (Auto) 4.5, Baso % (Auto) 0.2, Absolute Neuts (auto) 1.6 L, Absolute Lymphs (auto) 2.06, Nucleated RBC % 0, Sodium 138, Potassium 3.5, Chloride 101, Carbon Dioxide 31.0, Anion Gap 6, BUN 8, Creatinine 0.82, Estim Creat Clear Calc 125.03, Est GFR (MDRD) Af Amer 125, Est GFR (MDRD) Non-Af 103, BUN/Creatinine Ratio 9.8 L, Glucose 122 H, Calcium 8.7, Total Bilirubin 0.50, AST 56 H, ALT 69 H, Alkaline Phosphatase 73, Total Protein 6.2 L , Albumin 3.6, Globulin 2.6, Albumin/Globulin Ratio 1.4 Micro: Microbiology 05/27/24 16:48 Wound Abcess - Finger Gram Stain - Final 05/27/24 16:35 Wound Abcess - Finger Gram Stain - Final 05/26/24 Unknown Wound Abcess - Right Hand Gram Stain - Final 05/26/24 Unknown Wound Abcess - Right Hand Wound Culture - Preliminary No growth-Final to follow 05/26/24 Unknown Wound Abcess - Right Hand Anaerobic Culture - Preliminary No growth in 48 hours. 05/26/24 Unknown Wound Abcess - Right Hand Gram Stain - Final 05/26/24 Unknown Wound Abcess - Right Hand Wound Culture - Preliminary No growth-Final to follow 05/26/24 Unknown Wound Abcess - Right Hand Anaerobic Culture - Preliminary No growth in 48 hours. Radiography Diagnostic Testing: Radiology Impression Chest X-Ray 05/29/24 14:50 IMPRESSION: Left PICC line. Tip extends down the left midclavicular line. This may be within the left mammary artery. Electronically Signed: Zion Hammond MD at 15:29 EST , Rhythm Strip Rhythm Strip: Sinus Rhythm Rate: 67 Ectopy: None Physical Exam Const alert, oriented x3 and no apparent distress Constitutional Narrative: Pleasant middle-age male, class II obesity, sitting up comfortably at edge of bed, conversing normally, no acute distress. General Appearance: cooperative and comfortable HEENT normocephalic, head/scalp atraumatic, hearing grossly normal bilaterally, nasal mucous membranes and turbinates normal and moist oral mucous membranes Eyes PERRL, EOMs intact bilaterally and conjunctivae normal Neck full ROM Chest inspection of chest normal Resp normal respiratory effort, normal air movement, no use of accessory muscles and clear to auscultation bilaterally Cardio regular rate, regular rhythm, no murmurs and peripheral pulses 2+ throughout GI normal to inspection, nondistended, normoactive bowel sounds, soft to palpation, non-tender and non-distended Back/Spine normal ROM Extremity Extremity Narrative: Right hand with dressing in place. See plastic surgery notes for pictures of hand wound. Psych mental status grossly normal Assessment & Plan Assessment/Plan (1) Abscess of hand, right: (2) Cellulitis of hand, right: PLAN: Plan Patient is a 58-year-old male who presented to [facility] ED on 05/23/2024 with right hand abscess. 1. Right hand abscess ? Plastic surgery and infectious disease following. Patient has complex history over the past few months. Was initially hospitalized in March for right long finger flexor tenosynovitis s/p I&D with washout, discharged home on 03/15. Had debridement for delayed primary closure of wound on 03/23 and again on 04/13 without good result. He then had local soft tissue rearrangement with dermal substitute placement on 05/05. Again had poor result and developed abscess leading to this hospitalization. He notably was on multiple rounds of antibiotics over that period of time. 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 Had I&D done on 05/26 and 05/27. Per ID, treating with linezolid, azithromycin and amikacin for now. Planning for delayed primary closure again tomorrow. PICC line is in place. Appreciate plastics and ID recs on timing of discharge. Chronic medical conditions: ? Class II obesity with CANDELARIA: BMI 37 on admit. Encouraged lifestyle modifications. Continue home CPAP at night. ? History of CAD with stenting, hypertension, hyperlipidemia, history of TIA/CVA: Stable. Continue home aspirin, statin, Plavix, Lasix, Imdur and losartan. ? Type 2 diabetes mellitus with neuropathy: Treating with sliding scale insulin with meals while inpatient. Continue home gabapentin. ? COPD: Stable on room air, not in acute exacerbation. Continue home inhalers. ? Anxiety/depression: Stable. Continue home duloxetine and mirtazapine at night. ? GERD: Continue home PPI. ? Hypothyroidism: Continue home Synthroid. ? Tobacco use disorder: Nicotine patch in place per patient request. Discussed cessation on discharge. DVT prophylaxis: Lovenox CODE STATUS: Full code, verified Expected disposition: Home, TBD Total clinical time spent by myself addressing the patient's medical issues, reviewing all the data, and collaborating with patient's care team: 35 minutes. Charges/Coding Visit Charges Inpatient E&M: 75437 Subs Hosp L2
[2024-05-30 12:41] LABS: Bedside Glucose 93 mg/dL (74-106)
[2024-05-30] MEDS: WATER IV (13:24)
[2024-05-30] MEDS: AMIKACIN SULFATE IV (13:24)
[2024-05-30] MEDS: DEXTROSE 5% IV (13:24)
--- NOTE | 2024-05-30 14:30 | PCM.PN.ID ---
ID ID: Route of nutrition/ use of supplements: [] Nutritional Intake: [] IV Site: [] Barr Catheter: [] Patient is alert overall clinically stable. Tolerating antimicrobial therapy well. No fevers. No gastrointestinal distress. Reviewing his culture data one of the specimens of his right hand from May 05 is growing Mycobacterium abscessus. Current antimicrobial regimen reviewed. On exam his vitals are stable remains euthermic lungs are clear heart exam S1-S2 abdomen soft nontender right hand dressings are in place. I did review the pictures of his right hand from this morning. 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 Will treat with linezolid plus azithromycin plus amikacin for now and follow clinically.
[2024-05-30 16:17] LABS: Bedside Glucose 85 mg/dL (74-106)
[2024-05-30] MEDS: Atorvastatin Calcium 40 MG Tablet PO (21:08)
[2024-05-30 21:33] LABS: Bedside Glucose 117 mg/dL (74-106)
[2024-05-31] VITALS (7 sets, daily range): BP systolic 92–135; BP diastolic 41–103; PULSE 50–60; RESP 16; TEMP 36.4–36.8; O2SAT 92–96; BMI 37.3
[2024-05-31] MEDS: oxyCODONE 5 MG Tablet 10 MG PO ×3 (02:01→21:58)
[2024-05-31 06:18] LABS: Absolute Lymphocyte Count 1.89 X10^3/uL (0.83-4.51); Absolute Neutrophil Count 1.8 X10^3/uL (2.0-7.7); Basophil# 0.02 X10^3/uL; Basophil% 0.5 % (0-1); Eosinophil# 0.16 X10^3/uL; Eosinophils% 3.8 % (0-5); Hematocrit 39.6 % (40-54); Hemoglobin 13.7 g/dL (13.0-16.5); Lymphocyte # 1.89 X10^3/ul (0.83-4.51); Lymphocyte % 44.9 % (19-41); Mean Corp Hgb Conc 34.6 g/dL (32-36); Mean Corpuscular Hgb 34.2 pg (27.0-32.0); Mean Corpuscular Volume 98.8 fL (80-94); Mean Platelet Vol. 10.8 fl (6.2-12.0); Monocyte# 0.35 X10^3/uL; Monocyte% 8.3 % (0-10); NRBC Flagged by Analyzer 0 % (0-5); Neutrophil # 1.78 X10^3/uL (2.7-7.7); Neutrophil % 42.3 % (47-70); Platelet Count 140 K/mm3 (150-450); RBC Distribution Width CV 12.7 % (11.6-14.6); RBC Distribution Width SD 46.2 fl (35.1-43.9); Red Blood Count 4.01 M/mm3 (4.6-6.2); White Blood Count 4.2 K/mm3 (4.4-11.0)
[2024-05-31 06:45] LABS: ALB/GLOB Ratio 1.5 RATIO (0.9-2.4); AST(SGOT) 53 U/L (15-37); Alanine Aminotransfer ALT/SGPT 69 U/L (16-61); Albumin, Serum 3.5 g/dL (3.2-5.0); Alkaline Phosphatase 73 U/L (45-117); Anion Gap 2 (5-15); BUN 12 mg/dL (7-18); BUN/Creat Ratio 15.2 RATIO (10-20); Chloride 102 mmol/L (98-107); Creatinine, Serum 0.79 mg/dL (0.70-1.30); EST Glomerular Filtration Rate 107 mL/min (>60); Est Glom Filt Rate - Afr Amer 129 mL/min (>60); Estimated Creatinine Clearance 128.73 ml/min; Globulin 2.3 g/dL (2.2-4.2); Glucose 97 mg/dL (74-106); Potassium 3.6 mmol/L (3.5-5.1); Protein, Total 5.8 g/dL (6.4-8.2); Sodium Level 137 mmol/L (136-145)
[2024-05-31] MEDS: Gabapentin 800 MG Tablet PO ×3 (06:55→21:58)
[2024-05-31 07:20] LABS: Bedside Glucose 100 mg/dL (74-106)
[2024-05-31] MEDS: Ipratropium/Albuterol Sulfate 3 ML AMPUL.NEB INHALATION ×2 (07:31→19:40)
[2024-05-31] MEDS: Budesonide Respules 0.5 MG/2 ML AMPUL.NEB. INHALATION ×2 (07:31→19:40)
--- NOTE | 2024-05-31 08:17 | CASEMGMT ---
Message sent to to see about anticipated dc date. Pt to go back to surgery this date. Plan is to keep pt for a few days. RN CM to follow for IV atb and any homegoing needs.
--- NOTE | 2024-05-31 08:21 | PCM.PN.SRG ---
Subjective Subjective Persistent pain along incisions, but improving overall. No pain in the wrist or in the ring, index or thumb. Endorses good soaks and wound care by nursing staff. Got a midline yesterday for long-term antibiotics. Objective Data Objective Data Vital Signs: Vital Signs Temp Pulse Resp BP Pulse Ox O2 Del Method O2 Flow Rate 97.6 F L 59 L 16 92/59 L 92 Room Air 2 05/31/24 03:24 05/31/24 03:24 05/31/24 03:24 05/31/24 03:24 05/31/24 03:24 05/31/24 03:24 05/30/24 07:14 Oxygen Flow Rate (L/min) 2 Oxygen Delivery Method Room Air Weight: 252 lb 6.868 oz Body Mass Index (BMI) 37.3 Intake & Output: Intake and Output for Last 24 Hours 05/29/24 05/30/24 05/31/24 23:59 23:59 23:59 Intake Total 2926.05 / 2926.05 2220.3 / 2520.3 300 / 300 Balance 2926.05 / 2926.05 2220.3 / 2520.3 300 / 300 Lab / Micro Data 05/31/24 05:55 05/31/24 05:55 Labs: Laboratory Results - last 24 hr 05/30/24 10:58: POC Glucose 93 05/30/24 15:57: POC Glucose 85 05/30/24 21:10: POC Glucose 117 H 05/31/24 05:55: WBC 4.2 L, RBC 4.01 L, Hgb 13.7, Hct 39.6 L, MCV 98.8 H, MCH 34.2 H, MCHC 34.6, RDW Std Deviation 46.2 H, RDW Coeff of Autumn 12.7, Plt Count 140 L, MPV 10.8, Immature Gran % (Auto) 0.200, Neut % (Auto) 42.3 L, Lymph % (Auto) 44.9 H, [place] % (Auto) 8.3, Eos % (Auto) 3.8, Baso % (Auto) 0.5, Absolute Neuts (auto) 1.8 L, Absolute Lymphs (auto) 1.89, Nucleated RBC % 0, Sodium 137, Potassium 3.6, Chloride 102, Carbon Dioxide 33.0 H, Anion Gap 2 L, BUN 12, Creatinine 0.79, Estim Creat Clear Calc 128.73, Est GFR (MDRD) Af Amer 129, Est GFR (MDRD) Non-Af 107, BUN/Creatinine Ratio 15.2, Glucose 97, Calcium 9.0, Total Bilirubin 0.30, AST 53 H, ALT 69 H, Alkaline Phosphatase 73, Total Protein 5.8 L, Albumin 3.5, Globulin 2.3, Albumin/Globulin Ratio 1.5 05/31/24 06:54: POC Glucose 100 Micro: Microbiology 05/27/24 16:48 Wound Abcess - Finger Gram Stain - Final 05/27/24 16:48 Wound Abcess - Finger Wound Culture - Final No growth aerobically. 05/27/24 16:35 Wound Abcess - Finger Gram Stain - Final 05/27/24 16:35 Wound Abcess - Finger Wound Culture - Final No growth aerobically. 05/26/24 Unknown Wound Abcess - Right Hand Gram Stain - Final 05/26/24 Unknown Wound Abcess - Right Hand Wound Culture - Final No growth aerobically. 05/26/24 Unknown Wound Abcess - Right Hand Anaerobic Culture - Preliminary No growth in 48 hours. 05/26/24 Unknown Wound Abcess - Right Hand Gram Stain - Final 05/26/24 Unknown Wound Abcess - Right Hand Wound Culture - Final No growth aerobically. 05/26/24 Unknown Wound Abcess - Right Hand Anaerobic Culture - Preliminary No growth in 48 hours. Rhythm Strip Rhythm Strip: Sinus Rhythm Rate: 67 Ectopy: None Physical Exam Narrative Right upper Extremity Inspection/Palpation: No pain in the palm with passive extension/excursion of the FDP at the DIP joint of the small finger and the long finger today. No pain with passive extension/excursion of any of the other fingers/flexor tendons, and no pain in the palm/wrist/CT in general with regards to palpation. The pain is isolated to around the incisions. The A4 bruce of the long finger has melted at the area of the recent Mycobacterium abscessus abscess. There is some biofilm in this region. Otherwise there is no obvious tendon exposure. A1 bruce marcia of long finger appears to be granulating with soaks. A1 bruce region of the small finger has some fibrinous debris and biofilm. Motor: Able to bend and extend all MP, PIP, and DIP joints. Reasonable ROM given issues (long finger with 70 degrees MP flexion, 45 degrees PIP flexion, 45 degrees DIP flexion). Sensory: Intact to light touch on the radial and ulnar borders. Vascular: Finger tips are warm and well perfused with <2 second capillary refill. Assessment & Plan Assessment/Plan (1) Flexor tenosynovitis of finger: PLAN: Discussed persistent infection and risks of persistent infection with continued salvage attempt of the long finger and with continued wound care. I talked to Mr. Garibay about my concerns again with limited options for coverage of the long finger tendon (discussed continued wound care, Integra placement/granulation and skin graft, and with possible failure of these options, we talked about more complex reconstructions including cross finger flap possibilities as regional options, as well as groin flap or free flap options). He would like to continue to attempt salvage of the long finger, which is reasonable at this point. 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 He has reasonable ROM of the long finger for a useful digit, even in the setting of recent surgery, pain, and swelling. Plan for wash out/debridement of wounds today to promote better granulation (will do [place] block). O.K. for diet. Anticipate another couple of days of wound care and soaks/monitoring, with likely Integra placement later this week over areas of exposed tendon on the long finger. Patient in agreement with the plan. Charges/Coding Procedures Integumentary [id number]: [id number] Global Visit
--- NOTE | 2024-05-31 08:38 | HP.PCM.SX_ITS ---
HPI - General General Date of Admission: 05/23/24 Chief Complaint: Abscess/Swelling of the 5th Digit of the Right Hand. HPI Narrative ONELIA REED, is a 58 M who presents for debridement. Current Encounter (DATE OF SURGERY H&P UPDATE): I saw and examined the patient this morning in pre-operative holding. We discussed risks and benefits of today's surgery and they would like to proceed. NO CHANGE in health history since last seen and evaluated. Ready to proceed with surgery. [facility] Medical History Flexor tenosynovitis of finger Open wound, hand Infected hand Insulin dependent diabetes mellitus Arthritis Kidney stone TIA (transient ischemic attack) Seizures Gastric reflux Hypertension History of CVA in adulthood Antiplatelet or antithrombotic long-term use Wears glasses No natural teeth Diabetes Thyroid disease High cholesterol Blackout History of GI bleed Smoker BiPAP (biphasic positive airway pressure) dependence Sleep apnea Shortness of breath on exertion Chronic cough History of edema Leg cramps History of stress test Cardiology follow-up encounter Elevated LFTs Back pain Dorsalgia of thoracolumbar region Patellofemoral arthritis of right knee Bilateral knee pain Situational syncope Chest pain, unspecified Type 2 diabetes mellitus Essential hypertension Pneumonia due to other streptococci Atherosclerosis of coronary artery of false pass heart without angina pectoris Right bundle-branch block Gastroesophageal reflux disease Hypertriglyceridemia Obstructive sleep apnea Body mass index (BMI) 35 or more Tobacco abuse COPD (chronic obstructive pulmonary disease) MAOSN (dyspnea on exertion) Morbid obesity due to excess calories Localized edema Long-term use of high-risk medication Hyperlipidemia Difficulty swallowing Stage 2 moderate COPD by GOLD classification Sinus drainage Home Medications ?Medication ?Instructions ?Recorded ?Last Taken ?Type albuterol sulfate 90 mcg/actuation 6.7 g inhalation PRN PRN Wheezing 12/06/14 05/04/24 History aerosol inhaler ergocalciferol (vitamin D2) 1,250 50,000 unit PO Q7D SUPPLEMENT 12/06/14 05/04/24 History mcg (50,000 unit) capsule fluticasone propionate 50 1 spray NASAL DAILY ALLERGIES 05/05/16 04/10/24 History mcg/actuation nasal spray,suspension aspirin 81 mg tablet,delayed 81 mg PO DAILY HEART 08/11/19 05/04/24 History release duloxetine 60 mg capsule,delayed 60 mg PO DAILY MOOD 08/11/19 05/04/24 History release levothyroxine 50 mcg tablet 75 mcg PO DAILY THYROID 08/11/19 05/05/24 History losartan 50 mg tablet 25 mg PO QDAY BLOOD PRESSURE 08/11/19 05/04/24 History mirtazapine 15 mg tablet 45 mg PO QHS SLEEP AND RLS 08/11/19 05/04/24 History multivitamin 1 cap PO DAILY SUPPLEMENT 08/11/19 05/04/24 History nitroglycerin 0.4 mg sublingual 0.4 mg sublingual ONCE PRN chest 08/11/19 Unknown History tablet (Nitrostat) pain budesonide-formoterol HFA 160 2 puff inhalation BID COPD #10.2 12/05/19 05/04/24 Rx mcg-4.5 mcg/actuation aerosol grams inhaler clopidogrel 75 mg tablet 75 mg PO QDAY BLOOD THINNER #90 12/29/19 05/04/24 Rx tabs furosemide 40 mg tablet (Lasix) 60 mg PO DAILY WATER PILL 11/15/20 05/04/24 History metformin 1,000 mg tablet 1,000 mg PO BID DIABETES 11/15/20 05/04/24 History isosorbide mononitrate 60 mg 30 mg (1/2 x 60 mg) PO BID HEART 12/03/21 05/05/24 Rx tablet,extended release 24 hr #90 tabs omeprazole 40 mg capsule,delayed 40 mg PO DAILY GERD 1 month #30 06/05/23 05/05/24 Rx release caps rosuvastatin 20 mg tablet 20 mg PO QHS CHOLESTEROL 1 month 06/05/23 05/04/24 Rx #30 tabs empagliflozin 25 mg tablet 25 mg PO DAILY DAIBETES #30 tabs 11/24/23 05/04/24 Rx (Jardiance) fluticasone fur. 100 mcg-umeclid 1 ea inhalation DAILY copd 03/07/24 05/05/24 History 62.5 mcg-vilant 25 mcg inhalat.powder (Trelegy Ellipta) gabapentin 800 mg tablet 800 mg PO TID pain 03/07/24 05/04/24 History dulaglutide 1.5 mg/0.5 mL 1.5 mg subcut MENON DIABETES 03/22/24 04/24/24 History subcutaneous pen injector (Trulicity) cephalexin 500 mg capsule 500 mg PO Q8H 7 days #21 caps 05/05/24 Unknown Rx cefadroxil 500 mg capsule 500 mg PO BID 10 days #20 caps 05/19/24 Unknown Rx doxycycline monohydrate 100 mg 100 mg PO BID 10 days #20 caps 05/19/24 Unknown Rx capsule Allergy/AdvReac Type Severity Reaction Status Date / Time No Known Allergies Allergy Verified 05/19/24 09:02 Family History Father CVA (cerebral vascular accident) Brother CAD (coronary artery disease) Diabetes Mother COPD (chronic obstructive pulmonary disease) Sarcoidosis Surgical History History of hand surgery History of cardiac catheterization S/P laparoscopic cholecystectomy H/O umbilical hernia repair History of coronary artery stent placement (~03/25/16) History of carpal tunnel surgery of right wrist History of left heart catheterization Social History household members: spouse current occupational status: disabled Smoking Status: Light Smoker (<10/day) Tobacco: How many years used: 30 second hand exposure: Yes alcohol intake: never substance use type: does not use caffeine: Yes Type: coffee Number of servings: 2 what type of physical activity do you participate in: none Vital Signs Vital Signs Vital Signs: 05/30/24 09:00 05/30/24 10:32 05/30/24 12:44 Temperature 97.6 F L Temperature Source Temporal Pulse Rate 58 L Pulse Strength Normal (2+) Respiratory Rate 17 18 Respiratory Effort Normal Non-Labored Respiratory Depth Respiratory Pattern Blood Pressure 110/69 Blood Pressure Mean 82 Blood Pressure Source Monitor Blood Pressure Position Semi-Fowlers Blood Pressure Location Left Arm Pulse Ox 92 Oxygen Delivery Method Room Air Room Air 05/30/24 13:19 05/30/24 20:23 05/30/24 21:07 Temperature 98 F Temperature Source Oral Pulse Rate 65 60 55 L Pulse Strength Respiratory Rate 18 18 16 Respiratory Effort Respiratory Depth Respiratory Pattern Normal Normal Blood Pressure 125/52 H Blood Pressure Mean 76 Blood Pressure Source Monitor Blood Pressure Position Sitting Blood Pressure Location Right Arm Pulse Ox 94 Oxygen Delivery Method Room Air 05/30/24 21:20 05/30/24 22:00 05/31/24 03:24 Temperature 97.6 F L Temperature Source Oral Pulse Rate 59 L Pulse Strength Normal (2+) Respiratory Rate 16 Respiratory Effort Normal Non-Labored Respiratory Depth Normal Respiratory Pattern Normal Blood Pressure 92/59 L Blood Pressure Mean 70 Blood Pressure Source Monitor Blood Pressure Position Semi-Fowlers Blood Pressure Location Right Arm Pulse Ox 92 Oxygen Delivery Method Room Air Weight Weight: 252 lb 6.868 oz Body Mass Index (BMI) 37.3 Physical Exam Narrative Right upper Extremity Inspection/Palpation: No pain in the palm with passive extension/excursion of the FDP at the DIP joint of the small finger and the long finger today. No pain with passive extension/excursion of any of the other fingers/flexor tendons, and no pain in the palm/wrist/CT in general with regards to palpation. The pain is isolated to around the incisions. The A4 bruce of the long finger has melted at the area of the recent M ycobacterium abscessus abscess. There is some biofilm in this region. Otherwise there is no obvious tendon exposure. A1 bruce marcia of long finger appears to be granulating with soaks. A1 bruce region of the small finger has some fibrinous debris and biofilm. Motor: Able to bend and extend all MP, PIP, and DIP joints. Reasonable ROM given issues (long finger with 70 degrees MP flexion, 45 degrees PIP flexion, 45 degrees DIP flexion). Sensory: Intact to light touch on the radial and ulnar borders. Vascular: Finger tips are warm and well perfused with <2 second capillary refill. Results Lab / Micro Data 05/31/24 05:55 05/31/24 05:55 Labs: Laboratory Results - last 24 hr 05/30/24 10:58: POC Glucose 93 05/30/24 15:57: POC Glucose 85 05/30/24 21:10: POC Glucose 117 H 05/31/24 05:55: WBC 4.2 L, RBC 4.01 L, Hgb 13.7, Hct 39.6 L, MCV 98.8 H, MCH 34.2 H, MCHC 34.6, RDW Std Deviation 46.2 H, RDW Coeff of Autumn 12.7, Plt Count 140 L, MPV 10.8, Immature Gran % (Auto) 0.200, Neut % (Auto) 42.3 L, Lymph % (Auto) 44.9 H, [place] % (Auto) 8.3, Eos % (Auto) 3.8, Baso % (Auto) 0.5, Absolute Neuts (auto) 1.8 L, Absolute Lymphs (auto) 1.89, Nucleated RBC % 0, Sodium 137, Potassium 3.6, Chloride 102, Carbon Dioxide 33.0 H, Anion Gap 2 L, BUN 12, Creatinine 0.79, Estim Creat Clear Calc 128.73, Est GFR (MDRD) Af Amer 129, Est GFR (MDRD) Non-Af 107, BUN/Creatinine Ratio 15.2, Glucose 97, Calcium 9.0, Total Bilirubin 0.30, AST 53 H, ALT 69 H, Alkaline Phosphatase 73, Total Protein 5.8 L , Albumin 3.5, Globulin 2.3, Albumin/Globulin Ratio 1.5 05/31/24 06:54: POC Glucose 100 Micro: Microbiology 05/27/24 16:48 Wound Abcess - Finger Gram Stain - Final 05/27/24 16:48 Wound Abcess - Finger Wound Culture - Final No growth aerobically. 05/27/24 16:35 Wound Abcess - Finger Gram Stain - Final 05/27/24 16:35 Wound Abcess - Finger Wound Culture - Final No growth aerobically. 05/26/24 Unknown Wound Abcess - Right Hand Gram Stain - Final 05/26/24 Unknown Wound Abcess - Right Hand Wound Culture - Final No growth aerobically. 05/26/24 Unknown Wound Abcess - Right Hand Anaerobic Culture - Preliminary No growth in 48 hours. 05/26/24 Unknown Wound Abcess - Right Hand Gram Stain - Final 05/26/24 Unknown Wound Abcess - Right Hand Wound Culture - Final No growth aerobically. 05/26/24 Unknown Wound Abcess - Right Hand Anaerobic Culture - Preliminary No growth in 48 hours. Rhythm Strip Rhythm Strip: Sinus Rhythm Rate: 67 Ectopy: None Assessment & Plan Assessment/Plan (1) Flexor tenosynovitis of finger: PLAN: Plan Discussed persistent infection and risks of persistent infection with continued salvage attempt of the long finger and with continued wound care. I talked to Mr. Reed about my concerns again with limited options for coverage of the long finger tendon (discussed continued wound care, Integra placement/granulation and skin graft, and with possible failure of these options, we talked about more complex reconstructions including cross finger flap possibilities as regional options, as well as groin flap or free flap options). He would like to continue to attempt salvage of the long finger, which is reasonable at this point. 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 He has reasonable ROM of the long finger for a useful digit, even in the setting of recent surgery, pain, and swelling. Plan for wash out/debridement of wounds today to promote better granulation (will do [place] block). O.K. for diet. Anticipate another couple of days of wound care and soaks/monitoring, with likely Integra placement later this week over areas of exposed tendon on the long finger. INTERVAL H&P PLAN, DATE OF SURGERY: We will proceed with surgery today. Patient in agreement with the plan.
[2024-05-31] MEDS: Azithromycin 250 MG Tablet 500 MG PO (09:20)
[2024-05-31] MEDS: Furosemide 20 MG Tablet 60 MG PO (09:20)
[2024-05-31] MEDS: Isosorbide Mononitrate 30 MG Tablet PO ×2 (09:20→21:58)
[2024-05-31] MEDS: Lactobacillis Acidophilus 1 CAP PO ×4 (09:20→21:58)
[2024-05-31] MEDS: Ascorbic Acid 500 MG Tablet 1000 MG PO ×2 (09:20→16:43)
[2024-05-31] MEDS: Aspirin E.C. 81 MG Tablet PO (09:20)
[2024-05-31] MEDS: Pantoprazole Sodium 40 MG Tablet PO (09:20)
[2024-05-31] MEDS: Losartan Potassium 25 MG Tablet PO (09:21)
[2024-05-31] MEDS: Levothyroxine 75 MCG Tablet PO (09:21)
[2024-05-31] MEDS: Linezolid 600 MG Tablet PO ×2 (09:21→21:58)
[2024-05-31] MEDS: Ergocalciferol 1.25 MG (50, 000 UNIT) Capsule PO (09:21)
[2024-05-31] MEDS: Clopidogrel Bisulfate 75 MG Tablet PO (09:21)
[2024-05-31] MEDS: 0.9% Saline Lock 10 ML Syringe IV (09:24)
[2024-05-31] MEDS: HYDROmorphone 1 MG/ML Syringe IV (09:24)
[2024-05-31] MEDS: Acetaminophen 325 MG Tablet 650 MG PO ×2 (09:25→21:58)
[2024-05-31] MEDS: DULoxetine Hcl 60 MG Capsule PO (09:29)
[2024-05-31] MEDS: Enoxaparin 40 MG/0.4 ML Syringe SC (09:29)
[2024-05-31] MEDS: Multivitamins,Therapeutic Tablet 1 TABLET PO (09:29)
[2024-05-31] MEDS: Fluticasone 0.05% 1 SPRAY NASAL.SRY NASAL (09:29)
--- NOTE | 2024-05-31 10:46 | NURSING ---
[facility] NOTIFIED OF ORDER FOR PICC PLACEMENT VIA COMPUTER. BLOWER AND COMPRESSOR ASSEMBLER ALSO NOTIFIED THEY ARE TO COME THERE TODAY.
--- NOTE | 2024-05-31 11:15 | CASEMGMT ---
Addendum entered by Skylar Acuna 05/31/24 14:24: CORRY KING into pt room, pt is out of the room for surgery. CORRY KING to check back to see if he found out any information regarding his insurance. Original Note: CORRY KING notified by wound nurse that pt reports his insurance is no longer valid after today. CORRY KING into pt room, pt states that registration notified him that his insurance ends today. Provided pt with a copy of his card and phone number to call insurance. Pt states he was not aware of this or does not believe that he has received anything in the mail prior to this hospitalization. Pt able and agreeable to call. CORRY KING to check back.
--- NOTE | 2024-05-31 11:33 | PCM.PN.HOSP ---
Reason for Visit Reason for Visit: Diagnoses Type 2 diabetes mellitus with diabetic polyneuropathy (05/23/24) Obesity, unspecified (05/23/24) Obstructive sleep apnea (adult) (pediatric) (05/23/24) Cutaneous abscess of right hand (05/23/24) Cellulitis of right upper limb (05/23/24) Unspecified synovitis and tenosynovitis, unspecified hand (05/23/24) Unspecified open wound of right hand, subsequent encounter (05/23/24) Tobacco use (05/23/24) shelter (current) use of insulin (05/23/24) Subjective Subjective Saw patient at bedside this morning. Patient appeared similar to yesterday, sitting up comfortably at edge of bed and in no acute distress. Denied any hand pain or discomfort this morning. No other new concerns today. Objective Data Objective Data Vital Signs: Vital Signs Temp Pulse Resp BP Pulse Ox O2 Del Method O2 Flow Rate 98.0 F 53 L 16 106/89 H 92 Room Air 2 05/31/24 09:13 05/31/24 09:13 05/31/24 09:13 05/31/24 09:13 05/31/24 09:13 05/31/24 09:13 05/31/24 07:31 Oxygen Flow Rate (L/min) 2 Oxygen Delivery Method Room Air Weight: 114.5 kg Body Mass Index (BMI) 37.3 Intake & Output: Intake and Output for Last 24 Hours 05/29/24 05/30/24 05/31/24 23:59 23:59 23:59 Intake Total 2926.05 / 2926.05 2220.3 / 2520.3 300 / 300 Balance 2926.05 / 2926.05 2220.3 / 2520.3 300 / 300 Lab / Micro Data 05/31/24 05:55 05/31/24 05:55 Labs: Laboratory Results - last 24 hr 05/30/24 10:58: POC Glucose 93 05/30/24 15:57: POC Glucose 85 05/30/24 21:10: POC Glucose 117 H 05/31/24 05:55: WBC 4.2 L, RBC 4.01 L, Hgb 13.7, Hct 39.6 L, MCV 98.8 H, MCH 34.2 H, MCHC 34.6, RDW Std Deviation 46.2 H, RDW Coeff of Autumn 12.7, Plt Count 140 L, MPV 10.8, Immature Gran % (Auto) 0.200, Neut % (Auto) 42.3 L, Lymph % (Auto) 44.9 H, [place] % (Auto) 8.3, Eos % (Auto) 3.8, Baso % (Auto) 0.5, Absolute Neuts (auto) 1.8 L, Absolute Lymphs (auto) 1.89, Nucleated RBC % 0, Sodium 137, Potassium 3.6, Chloride 102, Carbon Dioxide 33.0 H, Anion Gap 2 L, BUN 12, Creatinine 0.79, Estim Creat Clear Calc 128.73, Est GFR (MDRD) Af Amer 129, Est GFR (MDRD) Non-Af 107, BUN/Creatinine Ratio 15.2, Glucose 97, Calcium 9.0, Total Bilirubin 0.30, AST 53 H, ALT 69 H, Alkaline Phosphatase 73, Total Protein 5.8 L, Albumin 3.5, Globulin 2.3, Albumin/Globulin Ratio 1.5 05/31/24 06:54: POC Glucose 100 Micro: Microbiology 05/27/24 16:35 Wound Abcess - Finger Gram Stain - Final 05/27/24 16:35 Wound Abcess - Finger Wound Culture - Final No growth aerobically. 05/27/24 16:35 Wound Abcess - Finger Anaerobic Culture - Preliminary No growth in 48 hours. 05/27/24 16:48 Wound Abcess - Finger Gram Stain - Final 05/27/24 16:48 Wound Abcess - Finger Wound Culture - Final No growth aerobically. 05/27/24 16:48 Wound Abcess - Finger Anaerobic Culture - Preliminary No growth in 48 hours. 05/26/24 Unknown Wound Abcess - Right Hand Gram Stain - Final 05/26/24 Unknown Wound Abcess - Right Hand Wound Culture - Final No growth aerobically. 05/26/24 Unknown Wound Abcess - Right Hand Anaerobic Culture - Preliminary No growth in 48 hours. 05/26/24 Unknown Wound Abcess - Right Hand Gram Stain - Final 05/26/24 Unknown Wound Abcess - Right Hand Wound Culture - Final No growth aerobically. 05/26/24 Unknown Wound Abcess - Right Hand Anaerobic Culture - Preliminary No growth in 48 hours. Rhythm Strip Rhythm Strip: Sinus Rhythm Rate: 67 Ectopy: None Physical Exam Const alert, oriented x3 and no apparent distress Constitutional Narrative: Pleasant middle-age male, class II obesity, sitting up comfortably at edge of bed, conversing normally, no acute distress. General Appearance: cooperative and comfortable HEENT normocephalic, head/scalp atraumatic, hearing grossly normal bilaterally, nasal mucous membranes and turbinates normal and moist oral mucous membranes Eyes PERRL, EOMs intact bilaterally and conjunctivae normal Neck full ROM Chest inspection of chest normal Resp normal respiratory effort, normal air movement, no use of accessory muscles and clear to auscultation bilaterally Cardio regular rate, regular rhythm, no murmurs and peripheral pulses 2+ throughout GI normal to inspection, nondistended, normoactive bowel sounds, soft to palpation, non-tender and non-distended Back/Spine normal ROM Extremity Extremity Narrative: Right hand with dressing in place. See plastic surgery notes for pictures of hand wound. Psych mental status grossly normal Assessment & Plan Assessment/Plan (1) Abscess of hand, right: (2) Cellulitis of hand, right: PLAN: Plan Patient is a 58-year-old male who presented to [facility] ED on 05/23/2024 with right hand abscess. 1. Right hand abscess ? Plastic surgery and infectious disease following. Patient has complex history over the past few months. Was initially hospitalized in March for right long finger flexor tenosynovitis s/p I&D with washout, discharged home on 03/15. Had debridement for delayed primary closure of wound on 03/23 and again on 04/13 without good result. He then had local soft tissue rearrangement with dermal substitute placement on 05/05. Again had poor result and developed abscess leading to this hospitalization. He notably was on multiple rounds of antibiotics over that period of time. 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 Had I&D done on 05/26 and 05/27. Per ID, treating with linezolid, azithromycin and amikacin for now. Planning for delayed primary closure again today. Unfortunately left PICC line is terminating in left mammary artery rather than SVC. Will attempt right sided PICC line placement today. Appreciate plastics and ID recs on timing of discharge. Chronic medical conditions: ? Class II obesity with CANDELARIA: BMI 37 on admit. Encouraged lifestyle modifications. Continue home CPAP at night. ? History of CAD with stenting, hypertension, hyperlipidemia, history of TIA/CVA: Stable. Continue home aspirin, statin, Plavix, Lasix, Imdur and losartan. ? Type 2 diabetes mellitus with neuropathy: Treating with sliding scale insulin with meals while inpatient. Continue home gabapentin. ? COPD: Stable on room air, not in acute exacerbation. Continue home inhalers. ? Anxiety/depression: Stable. Continue home duloxetine and mirtazapine at night. ? GERD: Continue home PPI. ? Hypothyroidism: Continue home Synthroid. ? Tobacco use disorder: Nicotine patch in place per patient request. Discussed cessation on discharge. DVT prophylaxis: Lovenox CODE STATUS: Full code, verified Expected disposition: Home, TBD Total clinical time spent by myself addressing the patient's medical issues, reviewing all the data, and collaborating with patient's care team: 35 minutes. Charges/Coding Visit Charges Inpatient E&M: 30778 Subs Hosp L2
[2024-05-31] MEDS: Insulin Lispro 100 UNIT/ML INSULN.PEN SC (12:01)
[2024-05-31] MEDS: AMIKACIN SULFATE IV (12:33)
[2024-05-31] MEDS: WATER IV (12:33)
[2024-05-31] MEDS: DEXTROSE 5% IV (12:33)
--- NOTE | 2024-05-31 13:27 | OP.PCM_ITS ---
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: No Type of Anesthesia: Local (20 cc of a 50-50 mixture of 1% lidocaine with 1- 200,000 epinephrine and 0.25% Marcaine with 1-200,000 epinephrine) RN Documented Start/Stop Times: Operation Date: 05/31/24 13:00 Case Time Into Pre-Op 05/31/24 12:11 Out of Pre-Op 05/31/24 13:28 Anesthesia Start 05/31/24 13:33 Into Room 05/31/24 13:33 Procedure Start 05/31/24 13:52 Procedure End 05/31/24 14:37 Anesthesia End 05/31/24 14:40 Into Phase II Recovery 05/31/24 14:40 Out of Room 05/31/24 14:40 Out of Phase II 05/31/24 15:07 Procedure Start Time: 13:52 Procedure Stop Time: 14:37 Select all DRAINS/GRAFTS/IMPLANTS that apply: None Estimated Blood Loss: 10 cc Fluids Replaced: None Specimen collected: Yes Description of specimen(s) removed: Cultures were taken from beneath primary closure sites (anaerobic and aerobic) Description of surgery: Indications: Lisandro Garibay is a 58 YO male with right hand flexor tenosynovitis of the long and small finger s/p multiple incision and drainage procedures. He is growing Mycobacterium abscessus. Returning to the OR today for another debridement/wash out and possible delayed primary closure, with plan for Integra placement over area of exposed tendon later this week. Procedure: Patient was correctly identified in preoperative holding and taken back to the operating room he was administered local anesthesia (20 cc of a 50-50 mixture of 1% lidocaine with 1-200,000 epinephrine and 0.25% Marcaine with 1-200,000 epinephrine). He was given time to take effect. He was prepped and draped in sterile fashion. A timeout was performed. A curette and 15 blade scalpel were used to sharply excise necrotic tissue (necrotic skin, fat, fascia, and some necrotic frayed tendon) along the skin edges that had been preventing adequate healing and granulation at the small finger (1x 1 cm), long finger (1x1 cm), and the volar palm at the long finger level (2x1 cm). The biofilm was also removed with a curette. The total excision with a sharp curette was 4 square centimeters. Hemostasis was obtained with pressure and bipolar. The wounds were irrigated with 450 cc of Irrisept followed by 3 liters of NS. A culture was taken beneath areas of planned delayed primary closure. With a 3-0 Nylon suture, two 1cm areas on the small and long fingers were both closed with horizontal mattress suture. A 2 cm area in the palm was then closed adjacent to the previous rotation flap so as to gain total coverage of the existing exposed FDP to the long finger at the level of the palm. A small area of the right long finger incision was still open in the area where the abscess had developed most recently. This had exposed tendon at the base of the wound, but appeared clean. This area had too much tension for closure. It was packed with NuGauze. XF was placed in the webspace between the index and the long finger in the area of previous Integra placement. The rest of the hand was wrapped with gauze, webroll, and a plaster volar blocking splint for temporary immobilization as the wounds healed. Postoperative plan: Continue Dial soap soaks on the floor and broad-spectrum IV antibiotic. Agree with PICC line. O.K. to place a right arm as needed (unable to place in left). Plastic surgery will continue to follow. Plan for return to operating room on 02 June 2024 for repeat debridement and Integra placement over exposed tendon on the long finger. Surgical Findings: Melted A4 bruce on the long finger status post abscess formation and I&D. This area had too much tension for closure. Complications Complications: No Admit VTE Documentation VTE Mechan Device Prophylaxis: SCD's
[2024-05-31] MEDS: Bupiv/Epi 0.25% 30 ML Vial (13:52)
[2024-05-31] MEDS: Lidocaine 1% /Epi 1:100 (20ml) 20 ML Vial (13:52)
--- NOTE | 2024-05-31 15:11 | NURSING ---
REQUESTED BY [facility], CONTACTED THEM AGAIN PT DONE WITH OR.
--- NOTE | 2024-05-31 15:35 | ANES.CONF2 ---
Anesthesia: Confirm Documents Multiple Procedures on Account (3) Confirmed Documents: Yes
[2024-05-31 16:40] LABS: Bedside Glucose 241 mg/dL (74-106)
[2024-05-31 17:04] LABS: Bedside Glucose 141 mg/dL (74-106)
--- NOTE | 2024-05-31 19:02 | NURSING ---
sanding machine tender phoned, states they will be here in approximately 1hour or so to do PICC line
[2024-05-31] MEDS: Atorvastatin Calcium 40 MG Tablet PO (21:58)
[2024-05-31 22:20] LABS: Bedside Glucose 124 mg/dL (74-106)
[2024-06-01] VITALS (7 sets, daily range): BP systolic 119–152; BP diastolic 61–93; PULSE 54–64; RESP 16–19; TEMP 36.4–36.8; O2SAT 91–96; BMI 37.9
[2024-06-01] MEDS: oxyCODONE 5 MG Tablet 10 MG PO ×4 (02:11→22:12)
[2024-06-01] MEDS: 0.9% Saline Lock 10 ML Syringe IV ×3 (04:00→14:59)
[2024-06-01] MEDS: HYDROmorphone 1 MG/ML Syringe IV ×3 (04:00→14:58)
[2024-06-01] MEDS: Levothyroxine 75 MCG Tablet PO (06:15)
[2024-06-01] MEDS: Gabapentin 800 MG Tablet PO ×3 (06:15→22:12)
[2024-06-01] MEDS: Acetaminophen 325 MG Tablet 650 MG PO ×3 (06:15→22:12)
[2024-06-01 06:38] LABS: Bedside Glucose 119 mg/dL (74-106)
[2024-06-01] MEDS: Budesonide Respules 0.5 MG/2 ML AMPUL.NEB. INHALATION ×2 (07:38→19:08)
[2024-06-01] MEDS: Ipratropium/Albuterol Sulfate 3 ML AMPUL.NEB INHALATION ×3 (07:38→19:08)
[2024-06-01] MEDS: Fluticasone 0.05% 1 SPRAY NASAL.SRY NASAL (08:49)
[2024-06-01] MEDS: Enoxaparin 40 MG/0.4 ML Syringe SC (08:50)
[2024-06-01] MEDS: Linezolid 600 MG Tablet PO ×2 (08:50→22:12)
[2024-06-01] MEDS: Furosemide 20 MG Tablet 60 MG PO (08:50)
[2024-06-01] MEDS: Azithromycin 250 MG Tablet 500 MG PO (08:51)
[2024-06-01] MEDS: Isosorbide Mononitrate 30 MG Tablet PO ×2 (08:51→22:11)
[2024-06-01] MEDS: Losartan Potassium 25 MG Tablet PO (08:51)
[2024-06-01] MEDS: Multivitamins,Therapeutic Tablet 1 TABLET PO (08:51)
[2024-06-01] MEDS: DULoxetine Hcl 60 MG Capsule PO (08:51)
[2024-06-01] MEDS: Ascorbic Acid 500 MG Tablet 1000 MG PO ×2 (08:51→17:17)
[2024-06-01] MEDS: Lactobacillis Acidophilus 1 CAP PO ×4 (08:52→22:11)
[2024-06-01] MEDS: Clopidogrel Bisulfate 75 MG Tablet PO (08:52)
[2024-06-01] MEDS: Pantoprazole Sodium 40 MG Tablet PO (08:52)
[2024-06-01] MEDS: Aspirin E.C. 81 MG Tablet PO (08:52)
--- NOTE | 2024-06-01 10:26 | RAD_ITS ---
STUDY: X-RAY CHEST REASON FOR EXAM: Male, 58 years old. PICC placement TECHNIQUE: Single AP portable view of the chest. COMPARISON: 05/29/2024 FINDINGS: A right-sided PICC line has been placed, tip is in the distal SVC. The lungs are clear and expanded. There is no demonstrated pleural abnormality. Normal size heart. Normal mediastinum and darren. Normal visualized pulmonary arteries. Normal visualized aortic arch and descending thoracic aorta. Normal visualized thoracic spine. Normal visualized ribs, clavicles, and shoulders. There is no demonstrated abnormality of the visualized soft tissue structures of the upper abdomen. RAD/Chest 1 View (Portable) IMPRESSION: No acute pulmonary process Right-sided PICC line tip in the distal SVC Electronically Signed: Loco Emanuel MD at 13:56 EST ,
--- NOTE | 2024-06-01 10:36 | PCM.PN.SRG ---
Subjective Subjective Doing well overall. Pain controlled. Pathology of tendon (FDP to long at level of A1) sample from last week's surgery did not demonstrate any granulomas or acid fast bacteria on stain. Objective Data Objective Data Vital Signs: Vital Signs Temp Pulse Resp BP Pulse Ox O2 Del Method O2 Flow Rate 98.2 F 64 19 H 152/93 H 91 Room Air 2 06/01/24 07:34 06/01/24 07:38 06/01/24 07:38 06/01/24 07:34 06/01/24 07:38 06/01/24 07:38 05/31/24 07:31 Oxygen Flow Rate (L/min) 2 Oxygen Delivery Method Room Air Weight: 256 lb 2.834 oz Body Mass Index (BMI) 37.9 Intake & Output: Intake and Output for Last 24 Hours 05/30/24 05/31/24 06/01/24 23:59 23:59 23:59 Intake Total 2220.3 / 2520.3 805.3 / 805.3 Balance 2220.3 / 2520.3 805.3 / 805.3 Lab / Micro Data 05/31/24 05:55 05/31/24 05:55 Labs: Laboratory Results - last 24 hr 05/31/24 11:23: POC Glucose 241 H 05/31/24 16:41: POC Glucose 141 H 05/31/24 21:57: POC Glucose 124 H 06/01/24 06:18: POC Glucose 119 H Micro: Microbiology 05/31/24 14:55 Wound - Right Hand Gram Stain - Final 05/31/24 14:55 Wound - Right Hand Wound Culture - Preliminary No growth-Final to follow 05/26/24 Unknown Wound Abcess - Right Hand Gram Stain - Final 05/26/24 Unknown Wound Abcess - Right Hand Wound Culture - Final No growth aerobically. 05/26/24 Unknown Wound Abcess - Right Hand Anaerobic Culture - Final No growth in 5 days. 05/26/24 Unknown Wound Abcess - Right Hand Gram Stain - Final 05/26/24 Unknown Wound Abcess - Right Hand Wound Culture - Final No growth aerobically. 05/26/24 Unknown Wound Abcess - Right Hand Anaerobic Culture - Final No growth in 5 days. 05/27/24 16:35 Wound Abcess - Finger Gram Stain - Final 05/27/24 16:35 Wound Abcess - Finger Wound Culture - Final No growth aerobically. 05/27/24 16:35 Wound Abcess - Finger Anaerobic Culture - Preliminary No growth in 48 hours. 05/27/24 16:48 Wound Abcess - Finger Gram Stain - Final 05/27/24 16:48 Wound Abcess - Finger Wound Culture - Final No growth aerobically. 05/27/24 16:48 Wound Abcess - Finger Anaerobic Culture - Preliminary No growth in 48 hours. Rhythm Strip Rhythm Strip: Sinus Rhythm Rate: 67 Ectopy: None Physical Exam Narrative Right upper Extremity Inspection/Palpation: No pain in the palm with passive extension/excursion of the FDP at the DIP joint of the small finger and the long finger today. No pain with passive extension/excursion of any of the other fingers/flexor tendons, and no pain in the palm/wrist/CT in general with regards to palpation. The pain is isolated to around the incisions. Partial closure intact. No signs of purulence or increased redness. Still small area of opening over the volar surface of P2 on the long finger with exposed tendon at the base. Motor: Able to bend and extend all MP, PIP, and DIP joints. Reasonable ROM given issues (long finger with 70 degrees MP flexion, 45 degrees PIP flexion, 45 degrees DIP flexion). Sensory: Intact to light touch on the radial and ulnar borders. Vascular: Finger tips are warm and well perfused with <2 second capillary refill. Assessment & Plan Assessment/Plan (1) Flexor tenosynovitis of finger: PLAN: Plan Plan from 31 May 2024: Discussed persistent infection and risks of persistent infection with continued salvage attempt of the long finger and with continued wound care. I talked to Mr. Garibay about my concerns again with limited options for coverage of the long finger tendon (discussed continued wound care, Integra placement/granulation and skin graft, and with possible failure of these options, we talked about more complex reconstructions including cross finger flap possibilities as regional options, as well as groin flap or free flap options). He would like to continue to attempt salvage of the long finger, which is reasonable at this point. 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 He has reasonable ROM of the long finger for a useful digit, even in the setting of recent surgery, pain, and swelling. Plan for wash out/debridement of wounds today to promote better granulation (will do Jerald block). O.K. for diet. Anticipate another couple of days of wound care and soaks/monitoring, with likely Integra placement later this week over areas of exposed tendon on the long finger. Plan from 01 Jun 2024: Continue TID dial soap soaks. Plan for debridement and Integra placement tomorrow or Thursday. Charges/Coding Procedures Integumentary [id number]: [id number] Global Visit
--- NOTE | 2024-06-01 11:05 | PCM.PN.HOSP ---
Reason for Visit Reason for Visit: Diagnoses Type 2 diabetes mellitus with diabetic polyneuropathy (05/23/24) Obesity, unspecified (05/23/24) Obstructive sleep apnea (adult) (pediatric) (05/23/24) Cutaneous abscess of right hand (05/23/24) Cellulitis of right upper limb (05/23/24) Unspecified synovitis and tenosynovitis, unspecified hand (05/23/24) Unspecified open wound of right hand, subsequent encounter (05/23/24) Tobacco use (05/23/24) longterm (current) use of insulin (05/23/24) Subjective Subjective Saw patient at bedside this morning. Patient appeared similar today to previous days. Did report some right hand pain today that is moderately improved with pain medications. Denies any fevers or chills. No other new concerns today. Objective Data Objective Data Vital Signs: Vital Signs Temp Pulse Resp BP Pulse Ox O2 Del Method O2 Flow Rate 98.2 F 64 19 H 152/93 H 91 Room Air 2 06/01/24 07:34 06/01/24 07:38 06/01/24 07:38 06/01/24 07:34 06/01/24 07:38 06/01/24 07:38 05/31/24 07:31 Oxygen Flow Rate (L/min) 2 Oxygen Delivery Method Room Air Weight: 116.2 kg Body Mass Index (BMI) 37.9 Intake & Output: Intake and Output for Last 24 Hours 05/30/24 05/31/24 06/01/24 23:59 23:59 23:59 Intake Total 2220.3 / 2520.3 805.3 / 805.3 Balance 2220.3 / 2520.3 805.3 / 805.3 Lab / Micro Data 05/31/24 05:55 05/31/24 05:55 Labs: Laboratory Results - last 24 hr 05/31/24 11:23: POC Glucose 241 H 05/31/24 16:41: POC Glucose 141 H 05/31/24 21:57: POC Glucose 124 H 06/01/24 06:18: POC Glucose 119 H Micro: Microbiology 05/31/24 14:55 Wound - Right Hand Gram Stain - Final 05/31/24 14:55 Wound - Right Hand Wound Culture - Preliminary No growth-Final to follow 05/26/24 Unknown Wound Abcess - Right Hand Gram Stain - Final 05/26/24 Unknown Wound Abcess - Right Hand Wound Culture - Final No growth aerobically. 05/26/24 Unknown Wound Abcess - Right Hand Anaerobic Culture - Final No growth in 5 days. 05/26/24 Unknown Wound Abcess - Right Hand Gram Stain - Final 05/26/24 Unknown Wound Abcess - Right Hand Wound Culture - Final No growth aerobically. 05/26/24 Unknown Wound Abcess - Right Hand Anaerobic Culture - Final No growth in 5 days. 05/27/24 16:35 Wound Abcess - Finger Gram Stain - Final 05/27/24 16:35 Wound Abcess - Finger Wound Culture - Final No growth aerobically. 05/27/24 16:35 Wound Abcess - Finger Anaerobic Culture - Preliminary No growth in 48 hours. 05/27/24 16:48 Wound Abcess - Finger Gram Stain - Final 05/27/24 16:48 Wound Abcess - Finger Wound Culture - Final No growth aerobically. 05/27/24 16:48 Wound Abcess - Finger Anaerobic Culture - Preliminary No growth in 48 hours. Rhythm Strip Rhythm Strip: Sinus Rhythm Rate: 67 Ectopy: None Physical Exam Const alert, oriented x3 and no apparent distress Constitutional Narrative: Middle-age male, class II obesity, mildly fatigued appearing, otherwise sitting up comfortably in bed, conversing normally, no acute distress. General Appearance: cooperative and comfortable HEENT normocephalic, head/scalp atraumatic, hearing grossly normal bilaterally, nasal mucous membranes and turbinates normal and moist oral mucous membranes Eyes PERRL, EOMs intact bilaterally and conjunctivae normal Neck full ROM Chest inspection of chest normal Resp normal respiratory effort, normal air movement, no use of accessory muscles and clear to auscultation bilaterally Cardio regular rate, regular rhythm, no murmurs and peripheral pulses 2+ throughout GI normal to inspection, nondistended, normoactive bowel sounds, soft to palpation, non-tender and non-distended Back/Spine normal ROM Extremity Extremity Narrative: Right hand with dressing in place. See plastic surgery notes for pictures of hand wound. Right sided PICC line in place. Psych mental status grossly normal Assessment & Plan Assessment/Plan (1) Abscess of hand, right: (2) Cellulitis of hand, right: PLAN: Plan Patient is a 58-year-old male who presented to [facility] ED on 05/23/2024 with right hand abscess. 1. Right hand abscess ? Plastic surgery and infectious disease following. Patient has complex history over the past few months. Was initially hospitalized in March for right long finger flexor tenosynovitis s/p I&D with washout, discharged home on 03/15. Had debridement for delayed primary closure of wound on 03/23 and again on 04/13 without good result. He then had local soft tissue rearrangement with dermal substitute placement on 05/05. Again had poor result and developed abscess leading to this hospitalization. He notably was on multiple rounds of antibiotics over that period of time. 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 Had I&D done on 05/26 and 05/27. Per ID, treating with linezolid, azithromycin and amikacin for now. S/p delayed primary closure on 05/31. Planning for washout with debridement of wounds today with plan for Integra placement later this week over areas of exposed tendon per plastics. Has right PICC line in place. Appreciate plastics and ID recs on timing of discharge. Chronic medical conditions: ? Class II obesity with CANDELARIA: BMI 37 on admit. Encouraged lifestyle modifications. Continue home CPAP at night. ? History of CAD with stenting, hypertension, hyperlipidemia, history of TIA/CVA: Stable. Continue home aspirin, statin, Plavix, Lasix, Imdur and losartan. ? Type 2 diabetes mellitus with neuropathy: Treating with sliding scale insulin with meals while inpatient. Continue home gabapentin. ? COPD: Stable on room air, not in acute exacerbation. Continue home inhalers. ? Anxiety/depression: Stable. Continue home duloxetine and mirtazapine at night. ? GERD: Continue home PPI. ? Hypothyroidism: Continue home Synthroid. ? Tobacco use disorder: Nicotine patch in place per patient request. Discussed cessation on discharge. DVT prophylaxis: Lovenox CODE STATUS: Full code, verified Expected disposition: Home, TBD Total clinical time spent by myself addressing the patient's medical issues, reviewing all the data, and collaborating with patient's care team: 35 minutes. Charges/Coding Visit Charges Inpatient E&M: 61335 Subs Hosp L2
[2024-06-01 11:52] LABS: Bedside Glucose 125 mg/dL (74-106)
[2024-06-01] MEDS: AMIKACIN SULFATE IV (12:29)
[2024-06-01] MEDS: NORMAL SALINE 0.9% IV (12:29)
[2024-06-01 16:42] LABS: Bedside Glucose 126 mg/dL (74-106)
[2024-06-01] MEDS: Atorvastatin Calcium 40 MG Tablet PO (22:12)
[2024-06-01 22:40] LABS: Bedside Glucose 116 mg/dL (74-106)
[2024-06-02] VITALS (18 sets, daily range): BP systolic 99–136; BP diastolic 58–77; PULSE 51–62; RESP 16–18; TEMP 36.4–36.8; O2SAT 92–98; BMI 37.2
[2024-06-02] MEDS: Acetaminophen 325 MG Tablet 650 MG PO ×2 (04:32→16:08)
[2024-06-02] MEDS: Gabapentin 800 MG Tablet PO ×3 (04:32→21:14)
[2024-06-02] MEDS: oxyCODONE 5 MG Tablet 10 MG PO ×4 (04:32→21:14)
[2024-06-02] MEDS: Levothyroxine 75 MCG Tablet PO (04:33)
[2024-06-02] MEDS: HYDROmorphone 1 MG/ML Syringe IV ×4 (05:55→17:55)
[2024-06-02] MEDS: 0.9% Saline Lock 10 ML Syringe IV ×3 (05:56→17:55)
[2024-06-02 06:30] LABS: Hematocrit 38.8 % (40-54); Hemoglobin 13.4 g/dL (13.0-16.5); Mean Corp Hgb Conc 34.5 g/dL (32-36); Mean Corpuscular Hgb 34.1 pg (27.0-32.0); Mean Corpuscular Volume 98.7 fL (80-94); Mean Platelet Vol. 10.8 fl (6.2-12.0); Platelet Count 137 K/mm3 (150-450); RBC Distribution Width CV 12.7 % (11.6-14.6); RBC Distribution Width SD 46.5 fl (35.1-43.9); Red Blood Count 3.93 M/mm3 (4.6-6.2); White Blood Count 3.6 K/mm3 (4.4-11.0)
--- NOTE | 2024-06-02 06:31 | PCM.PN.BLA ---
Progress Note Doing well with soaks and dressing changes. Pain controlled. No fevers/chills. Physical Exam Narrative Right upper Extremity Inspection/Palpation: No pain in the palm with passive extension/excursion of the FDP at the DIP joint of the small finger and the long finger today. No pain with passive extension/excursion of any of the other fingers/flexor tendons, and no pain in the palm/wrist/CT in general with regards to palpation. The pain is isolated to around the incisions. Partial closure intact. No signs of purulence or increased redness. Still small area of opening over the volar surface of P2 on the long finger with exposed tendon at the base. Motor: Able to bend and extend all MP, PIP, and DIP joints. Reasonable ROM given issues (long finger with 70 degrees MP flexion, 45 degrees PIP flexion, 45 degrees DIP flexion). Sensory: Intact to light touch on the radial and ulnar borders. Vascular: Finger tips are warm and well perfused with <2 second capillary refill. Assessment & Plan Assessment/Plan (1) Flexor tenosynovitis of finger: PLAN: Plan OR today for delayed primary closure/Integra placement Will splint patient after and have him follow up in the wound care center. OK for DC following today's procedure from plastic surgery standpoint. Procedures Integumentary [id number]: [id number] Global Visit
--- NOTE | 2024-06-02 06:34 | PCM.HP.STD ---
HPI - General General Date of Admission: 05/23/24 Chief Complaint: Abscess/Swelling of the 5th Digit of the Right Hand. HPI Narrative ONELIA REED, is a 58 M who presents with right hand wound. Current Encounter (DATE OF SURGERY H&P UPDATE): I saw and examined the patient this morning in pre-operative holding. We discussed risks and benefits of today's surgery and they would like to proceed. NO CHANGE in health history since last seen and evaluated (THIS MORNING). Ready to proceed with surgery. [facility] Medical History Flexor tenosynovitis of finger Open wound, hand Infected hand Insulin dependent diabetes mellitus Arthritis Kidney stone TIA (transient ischemic attack) Seizures Gastric reflux Hypertension History of CVA in adulthood Antiplatelet or antithrombotic long-term use Wears glasses No natural teeth Diabetes Thyroid disease High cholesterol Blackout History of GI bleed Smoker BiPAP (biphasic positive airway pressure) dependence Sleep apnea Shortness of breath on exertion Chronic cough History of edema Leg cramps History of stress test Cardiology follow-up encounter Elevated LFTs Back pain Dorsalgia of thoracolumbar region Patellofemoral arthritis of right knee Bilateral knee pain Situational syncope Chest pain, unspecified Type 2 diabetes mellitus Essential hypertension Pneumonia due to other streptococci Atherosclerosis of coronary artery of [place] heart without angina pectoris Right bundle-branch block Gastroesophageal reflux disease Hypertriglyceridemia Obstructive sleep apnea Body mass index (BMI) 35 or more Tobacco abuse COPD (chronic obstructive pulmonary disease) MASON (dyspnea on exertion) Morbid obesity due to excess calories Localized edema Long-term use of high-risk medication Hyperlipidemia Difficulty swallowing Stage 2 moderate COPD by GOLD classification Sinus drainage Home Medications ?Medication ?Instructions ?Recorded ?Last Taken ?Type albuterol sulfate 90 mcg/actuation 6.7 g inhalation PRN PRN Wheezing 12/06/14 05/04/24 History aerosol inhaler ergocalciferol (vitamin D2) 1,250 50,000 unit PO Q7D SUPPLEMENT 12/06/14 05/04/24 History mcg (50,000 unit) capsule fluticasone propionate 50 1 spray NASAL DAILY ALLERGIES 05/05/16 04/10/24 History mcg/actuation nasal spray,suspension aspirin 81 mg tablet,delayed 81 mg PO DAILY HEART 08/11/19 05/04/24 History release duloxetine 60 mg capsule,delayed 60 mg PO DAILY MOOD 08/11/19 05/04/24 History release levothyroxine 50 mcg tablet 75 mcg PO DAILY THYROID 08/11/19 05/05/24 History losartan 50 mg tablet 25 mg PO QDAY BLOOD PRESSURE 08/11/19 05/04/24 History mirtazapine 15 mg tablet 45 mg PO QHS SLEEP AND RLS 08/11/19 05/04/24 History multivitamin 1 cap PO DAILY SUPPLEMENT 08/11/19 05/04/24 History nitroglycerin 0.4 mg sublingual 0.4 mg sublingual ONCE PRN chest 08/11/19 Unknown History tablet (Nitrostat) pain budesonide-formoterol HFA 160 2 puff inhalation BID COPD #10.2 12/05/19 05/04/24 Rx mcg-4.5 mcg/actuation aerosol grams inhaler clopidogrel 75 mg tablet 75 mg PO QDAY BLOOD THINNER #90 12/29/19 05/04/24 Rx tabs furosemide 40 mg tablet (Lasix) 60 mg PO DAILY WATER PILL 11/15/20 05/04/24 History metformin 1,000 mg tablet 1,000 mg PO BID DIABETES 11/15/20 05/04/24 History isosorbide mononitrate 60 mg 30 mg (1/2 x 60 mg) PO BID HEART 12/03/21 05/05/24 Rx tablet,extended release 24 hr #90 tabs omeprazole 40 mg capsule,delayed 40 mg PO DAILY GERD 1 month #30 06/05/23 05/05/24 Rx release caps rosuvastatin 20 mg tablet 20 mg PO QHS CHOLESTEROL 1 month 06/05/23 05/04/24 Rx #30 tabs empagliflozin 25 mg tablet 25 mg PO DAILY DAIBETES #30 tabs 11/24/23 05/04/24 Rx (Jardiance) fluticasone fur. 100 mcg-umeclid 1 ea inhalation DAILY copd 03/07/24 05/05/24 History 62.5 mcg-vilant 25 mcg inhalat.powder (Trelegy Ellipta) gabapentin 800 mg tablet 800 mg PO TID pain 03/07/24 05/04/24 History dulaglutide 1.5 mg/0.5 mL 1.5 mg subcut MENON DIABETES 03/22/24 04/24/24 History subcutaneous pen injector (Trulicity) cephalexin 500 mg capsule 500 mg PO Q8H 7 days #21 caps 05/05/24 Unknown Rx cefadroxil 500 mg capsule 500 mg PO BID 10 days #20 caps 05/19/24 Unknown Rx doxycycline monohydrate 100 mg 100 mg PO BID 10 days #20 caps 05/19/24 Unknown Rx capsule Allergy/AdvReac Type Severity Reaction Status Date / Time No Known Allergies Allergy Verified 05/19/24 09:02 Family History Father CVA (cerebral vascular accident) Brother CAD (coronary artery disease) Diabetes Mother COPD (chronic obstructive pulmonary disease) Sarcoidosis Surgical History History of hand surgery History of cardiac catheterization S/P laparoscopic cholecystectomy H/O umbilical hernia repair History of coronary artery stent placement (~03/25/16) History of carpal tunnel surgery of right wrist History of left heart catheterization Social History household members: spouse current occupational status: disabled Smoking Status: Light Smoker (<10/day) Tobacco: How many years used: 30 second hand exposure: Yes alcohol intake: never substance use type: does not use caffeine: Yes Type: coffee Number of servings: 2 what type of physical activity do you participate in: none Vital Signs Vital Signs Vital Signs: 06/01/24 07:34 06/01/24 07:34 06/01/24 07:38 Temperature 98.2 F Temperature Source Oral Pulse Rate 58 L 64 Pulse Strength Respiratory Rate 18 19 H Respiratory Effort Respiratory Depth Respiratory Pattern Normal Blood Pressure 152/93 H Blood Pressure Mean 112 Blood Pressure Source Monitor Blood Pressure Position Sitting Blood Pressure Location Right Leg Pulse Ox 91 Oxygen Delivery Method Room Air Room Air 06/01/24 07:38 06/01/24 09:57 06/01/24 13:50 Temperature Temperature Source Pulse Rate 60 Pulse Strength Normal (2+) Respiratory Rate 18 Respiratory Effort Respiratory Depth Respiratory Pattern Normal Blood Pressure Blood Pressure Mean Blood Pressure Source Blood Pressure Position Blood Pressure Location Pulse Ox 91 Oxygen Delivery Method Room Air 06/01/24 14:00 06/01/24 19:08 06/01/24 22:00 Temperature 98.2 F Temperature Source Oral Pulse Rate 54 L 57 L Pulse Strength Normal (2+) Respiratory Rate 18 16 Respiratory Effort Respiratory Depth Respiratory Pattern Normal Blood Pressure 132/78 H Blood Pressure Mean 96 Blood Pressure Source Monitor Blood Pressure Position Semi-Fowlers Blood Pressure Location Left Leg Pulse Ox 92 Oxygen Delivery Method Room Air 06/01/24 22:09 06/01/24 22:30 06/02/24 04:31 Temperature 97.6 F L 97.6 F L Temperature Source Temporal Oral Pulse Rate 58 L 59 L Pulse Strength Respiratory Rate 16 16 Respiratory Effort Normal Non-Labored Respiratory Depth Normal Respiratory Pattern Normal Blood Pressure 119/61 124/71 H Blood Pressure Mean 80 88 Blood Pressure Source Monitor Monitor Blood Pressure Position Supine Semi-Fowlers Blood Pressure Location Left Leg Left Forearm Pulse Ox 94 97 Oxygen Delivery Method Room Air Room Air Room Air Weight Weight: 251 lb 8.759 oz Body Mass Index (BMI) 37.2 Physical Exam Narrative Right upper Extremity Inspection/Palpation: No pain in the palm with passive extension/excursion of the FDP at the DIP joint of the small finger and the long finger today. No pain with passive extension/excursion of any of the other fingers/flexor tendons, and no pain in the palm/wrist/CT in general with regards to palpation. The pain is isolated to around the incisions. Partial closure intact. No signs of purulence or increased redness. Still small area of opening over the volar surface of P2 on the long finger with exposed tendon at the base. Motor: Able to bend and extend all MP, PIP, and DIP joints. Reasonable ROM given issues (long finger with 70 degrees MP flexion, 45 degrees PIP flexion, 45 degrees DIP flexion). Sensory: Intact to light touch on the radial and ulnar borders. Vascular: Finger tips are warm and well perfused with <2 second capillary refill. Results Lab / Micro Data 06/02/24 05:55 05/31/24 05:55 Labs: Laboratory Results - last 24 hr 06/01/24 06:18: POC Glucose 119 H 06/01/24 11:33: POC Glucose 125 H 06/01/24 16:18: POC Glucose 126 H 06/01/24 22:15: POC Glucose 116 H 06/02/24 05:55: WBC 3.6 L, RBC 3.93 L, Hgb 13.4, Hct 38.8 L, MCV 98.7 H, MCH 34.1 H, MCHC 34.5, RDW Std Deviation 46.5 H, RDW Coeff of Autumn 12.7, Plt Count 137 L, MPV 10.8 Micro: Microbiology 05/31/24 14:55 Wound - Right Hand Gram Stain - Final 05/31/24 14:55 Wound - Right Hand Wound Culture - Preliminary No growth-Final to follow 05/26/24 Unknown Wound Abcess - Right Hand Gram Stain - Final 05/26/24 Unknown Wound Abcess - Right Hand Wound Culture - Final No growth aerobically. 05/26/24 Unknown Wound Abcess - Right Hand Anaerobic Culture - Final No growth in 5 days. 05/26/24 Unknown Wound Abcess - Right Hand Gram Stain - Final 05/26/24 Unknown Wound Abcess - Right Hand Wound Culture - Final No growth aerobically. 05/26/24 Unknown Wound Abcess - Right Hand Anaerobic Culture - Final No growth in 5 days. Rhythm Strip Rhythm Strip: Sinus Rhythm Rate: 67 Ectopy: None Imaging Radiology Impression Chest X-Ray 06/01/24 10:26 IMPRESSION: No acute pulmonary process Right-sided PICC line tip in the distal SVC Electronically Signed: Loco Emanuel MD at 13:56 EST Reading Location ID and State: [facility] , Service support , Assessment & Plan Assessment/Plan (1) Flexor tenosynovitis of finger: PLAN: Plan I talked the patient extensively about the risks of surgery, including bleeding, infection, damage to surrounding structures, surgical site dehiscence and wound formation, need for wound care, need for repeat operations, failure to obtain the desired result, DVT/PE, and the risks of anesthesia including (will do under local). The benefits and alternatives of this surgery were also discussed. All of their questions were answered, and they agreed to proceed with surgery. INTERVAL H&P PLAN, DATE OF SURGERY: We will proceed with surgery today. Delayed primary closure with Integra placement in webspace and splinting.
[2024-06-02 06:49] LABS: Anion Gap 5 (5-15); BUN 13 mg/dL (7-18); BUN/Creat Ratio 14.7 RATIO (10-20); Calcium,Total 8.9 mg/dL (8.5-10.1); Chloride 106 mmol/L (98-107); Creatinine, Serum 0.89 mg/dL (0.70-1.30); EST Glomerular Filtration Rate 94 mL/min (>60); Est Glom Filt Rate - Afr Amer 114 mL/min (>60); Estimated Creatinine Clearance 114.06 ml/min; Glucose 112 mg/dL (74-106); Potassium 3.7 mmol/L (3.5-5.1); Sodium Level 139 mmol/L (136-145)
[2024-06-02 06:55] LABS: Bedside Glucose 103 mg/dL (74-106)
[2024-06-02] MEDS: Ipratropium/Albuterol Sulfate 3 ML AMPUL.NEB INHALATION ×3 (07:03→19:26)
[2024-06-02] MEDS: Budesonide Respules 0.5 MG/2 ML AMPUL.NEB. INHALATION ×2 (07:03→19:26)
--- NOTE | 2024-06-02 07:03 | CPS ---
PATIENT ON NASAL CANNULA AT 2LPM OVERNIGHT INSTEAD OF CPAP.
[2024-06-02] MEDS: Azithromycin 250 MG Tablet 500 MG PO (08:45)
[2024-06-02] MEDS: Linezolid 600 MG Tablet PO ×2 (08:45→21:06)
[2024-06-02] MEDS: Furosemide 20 MG Tablet 60 MG PO (08:46)
[2024-06-02] MEDS: Losartan Potassium 25 MG Tablet PO (08:46)
[2024-06-02] MEDS: Isosorbide Mononitrate 30 MG Tablet PO ×2 (08:46→21:06)
[2024-06-02] MEDS: Clopidogrel Bisulfate 75 MG Tablet PO (08:46)
[2024-06-02] MEDS: Pantoprazole Sodium 40 MG Tablet PO (08:47)
[2024-06-02] MEDS: Lactobacillis Acidophilus 1 CAP PO ×4 (08:47→21:05)
[2024-06-02] MEDS: Ascorbic Acid 500 MG Tablet 1000 MG PO ×2 (08:47→16:58)
[2024-06-02] MEDS: Fluticasone 0.05% 1 SPRAY NASAL.SRY NASAL (08:47)
[2024-06-02] MEDS: Multivitamins,Therapeutic Tablet 1 TABLET PO (08:47)
[2024-06-02] MEDS: Aspirin E.C. 81 MG Tablet PO (08:47)
[2024-06-02] MEDS: DULoxetine Hcl 60 MG Capsule PO (08:47)
--- NOTE | 2024-06-02 09:16 | CASEMGMT ---
Addendum entered by Skylar Acuna 06/02/24 14:28: [facility] is unable to accept pt due to staffing. Addendum entered by Skylar Acuna 06/02/24 11:15: Referral sent to [facility] via careport at this time. Addendum entered by Skylar Acuna 06/02/24 11:13: TC to Viviane at [facility], referral made. Addendum entered by Skylar Acuna 06/02/24 11:10: Pt provided with a HHC list created by dc tmd teacher assistant. Pt states he does not have a preference. He is agreeable to [facility] and then if they do not accept to send to all agencies and he will make the decision from who accepts him. Original Note: RN CM into pt room, pt states he did reach his insurance and that his insurance is changing to [employer]. He states he was given a phone number for registration to call to get the new information. . TC to Viola in registration and provided her with this information. She is aware pt is to have surgery today and is concerned that the bill will get to the right insurance. Pt states he is to have surgery today. Discussed with pt the IV atb should he need them at home. Pt provided with a verbal list of infusion providers, pt chose [facility]. Pt states he can learn the IV. Pt aware that a HH list will be given shortly. Pt denies any questions at this time.
--- NOTE | 2024-06-02 10:37 | CASEMGMT ---
Discharge Planning A list of HH providers including quality and resource use data and consistent with the patient's preferred geographic region, medical needs, and insurance network was created in CarePort Guide.? This list was provided to the RN CHRISTINE. Noelle Chavez, Discharge Planning Asst.
[2024-06-02] MEDS: Lidocaine 1% /Epi 1:100 (20ml) 20 ML Vial (12:56)
[2024-06-02] MEDS: Bupiv/Epi 0.25% 30 ML Vial (12:56)
--- NOTE | 2024-06-02 13:11 | PN_ITS ---
Subjective Subjective Patient seen and examined. He had no complaints and was sitting comfortably. Review of systems otherwise negative. He is due for surgery by plastics on his right hand today. Objective Data Objective Data Vital Signs: Vital Signs Temp Pulse Resp BP Pulse Ox O2 Del Method O2 Flow Rate 98.0 F 56 L 18 103/58 L 95 Room Air 2 06/02/24 08:32 06/02/24 08:32 06/02/24 08:32 06/02/24 13:06 06/02/24 08:32 06/02/24 08:32 05/31/24 07:31 Oxygen Flow Rate (L/min) 2 Oxygen Delivery Method Room Air Weight: 251 lb 8.759 oz Body Mass Index (BMI) 37.2 Intake & Output: Intake and Output for Last 24 Hours 05/31/24 06/01/24 06/02/24 23:59 23:59 23:59 Intake Total 805.3 / 805.3 505.3 / 505.3 Balance 805.3 / 805.3 505.3 / 505.3 Lab / Micro Data 06/02/24 05:55 06/02/24 05:55 Labs: Laboratory Results - last 24 hr 06/01/24 16:18: POC Glucose 126 H 06/01/24 22:15: POC Glucose 116 H 06/02/24 05:55: WBC 3.6 L, RBC 3.93 L, Hgb 13.4, Hct 38.8 L, MCV 98.7 H, MCH 34.1 H, MCHC 34.5, RDW Std Deviation 46.5 H, RDW Coeff of Autumn 12.7, Plt Count 137 L, MPV 10.8, Sodium 139, Potassium 3.7, Chloride 106, Carbon Dioxide 29.0, Anion Gap 5, BUN 13, Creatinine 0.89, Estim Creat Clear Calc 114.06, Est GFR (MDRD) Af Amer 114, Est GFR (MDRD) Non-Af 94, BUN/Creatinine Ratio 14.7, Glucose 112 H, Calcium 8.9 06/02/24 06:00: POC Glucose 103 Micro: Microbiology 05/31/24 14:55 Wound - Right Hand Gram Stain - Final 05/31/24 14:55 Wound - Right Hand Wound Culture - Preliminary No growth-Final to follow 05/31/24 14:55 Wound - Right Hand Anaerobic Culture - Preliminary No growth in 48 hours. 05/26/24 Unknown Wound Abcess - Right Hand Gram Stain - Final 05/26/24 Unknown Wound Abcess - Right Hand Wound Culture - Final No growth aerobically. 05/26/24 Unknown Wound Abcess - Right Hand Anaerobic Culture - Final No growth in 5 days. 05/26/24 Unknown Wound Abcess - Right Hand Gram Stain - Final 05/26/24 Unknown Wound Abcess - Right Hand Wound Culture - Final No growth aerobically. 05/26/24 Unknown Wound Abcess - Right Hand Anaerobic Culture - Final No growth in 5 days. 05/27/24 16:35 Wound Abcess - Finger Gram Stain - Final 05/27/24 16:35 Wound Abcess - Finger Wound Culture - Final No growth aerobically. 05/27/24 16:35 Wound Abcess - Finger Anaerobic Culture - Preliminary No growth in 48 hours. 05/27/24 16:48 Wound Abcess - Finger Gram Stain - Final 05/27/24 16:48 Wound Abcess - Finger Wound Culture - Final No growth aerobically. 05/27/24 16:48 Wound Abcess - Finger Anaerobic Culture - Preliminary No growth in 48 hours. Radiography Diagnostic Testing: Radiology Impression Chest X-Ray 06/01/24 10:26 IMPRESSION: No acute pulmonary process Right-sided PICC line tip in the distal SVC Electronically Signed: Loco Emanuel MD at 13:56 EST Reading Location ID and State: [address] [place] [address] , Service support , Rhythm Strip Rhythm Strip: Sinus Rhythm Rate: 67 Ectopy: None Physical Exam Const alert, oriented x3 and no apparent distress General Appearance: cooperative HEENT normocephalic, head/scalp atraumatic and moist oral mucous membranes Eyes PERRL and EOMs intact bilaterally Neck no lymphadenopathy and supple Lymph Lymphatic: no lymphadenopathy noted and no lymphedema noted Resp normal respiratory effort, normal air movement and clear to auscultation bilaterally Cardio regular rate, regular rhythm, S1 normal heart sound, S2 normal heart sound and no murmurs GI normal to inspection, nondistended, normoactive bowel sounds, soft to palpation, non-tender and non-distended Extremity Extremity Narrative: right hand wrapped in bandage Skin Skin Narrative: as under extremity Neuro CN's II-XII intact bilaterally, no focal motor deficits and no sensory deficits noted Motor Exam: strength 5/5 throughout and general weakness Psych thought process normal and cooperative Appearance: appropriate Assessment & Plan Assessment/Plan (1) Cellulitis of hand, right: (2) Flexor tenosynovitis of finger: (3) Abscess of hand, right: PLAN: Plan #Right hand abscess * has had a protracted course with regards to his right hand for several months * had right long finger flexor tenosynovitis /p I&D with washout. He subsequently had debridement for delayed primary closure of the wound on 03/23 and also on 04/13 * he subsequently developed abscess in the right hand and had multiple rounds of antibiotics to no avail. 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 * had I&D done on 05/26 and 05/27. * Also had delayed primary closure on 05/31 * ID on board. On PO linezolid, azithromycin and amikacin * for further surgery by plastic surgery toay * has PICC line in situ * #History of CAD s/p stents: on aspirin, plavix, statin and lasix as well as imdur and osartan. #Type 2 diabetes mellitus with neuropathy. On ISS. Accuchecks ACHS. On gabapentin. #COPD: not in exacerbation. Breathing treatment with bronchodilators. #Anxiety and depression; on duloxetine and mirtazapine. #Thrombocytopenia: platelets are 137 today. This is chronic. #GERD: on PPI #Hyperlipidemia: on statin #Hypertension: on losartan. #History of TIA: on aspirin, plavix and statin. #Hypothyroidism:on synthroid. #Nicotine dependence: on nicotine patch. DVT prophylaxis: lovenox Charges/Coding Visit Charges Inpatient E&M: 18623 Subs Hosp L2
[2024-06-02] MEDS: 0.9% Normal Saline (100mL Bag) 100 ML 15 ML IV (14:15)
[2024-06-02] MEDS: NORMAL SALINE 0.9% IV (14:16)
[2024-06-02] MEDS: AMIKACIN SULFATE IV (14:16)
[2024-06-02 16:43] LABS: Bedside Glucose 97 mg/dL (74-106)
--- NOTE | 2024-06-02 17:29 | OP.PCM_ITS ---
Operative Report (Standard) Operative Information Date of Procedure: 06/02/24 Pre-Operative Diagnosis: Right hand wounds s/p I&D for Mycobacterium infection (flexor tenosynovitis of the long and small fingers) Post-Operative Diagnosis: Right hand wounds s/p I&D for Mycobacterium infection (flexor tenosynovitis of the long and small fingers) Surgery/Procedure Performed: 1) Debridement and wash out of right long finger (1 x 1 cm), and palmar and web space (between index and long) wounds 1 x 1 cm, down to necrotic fascia and tendon in preparation for delayed primary closure (CPT: 48314) 2) Secondary closure of surgical wounds, right long finger (CPT: 06300) 3) Placement of Integra, dermal substitute, 1 x 1 cm, to the index/long webs pace wound (CPT: 60694) dispatcher maintenance service: No Type of Anesthesia: Local (Local (14 cc of a 50-50 mixture of 1% lidocaine with 1-200,000 epinephrine and 0.25% Marcaine with 1-200,000 epinephrine)) RN Documented Start/Stop Times: Operation Date: 06/02/24 12:30 Case Time Into Pre-Op 06/02/24 11:16 Out of Pre-Op 06/02/24 12:40 Anesthesia Start 06/02/24 12:44 Into Room 06/02/24 12:44 Procedure Start 06/02/24 12:56 Anesthesia End 06/02/24 13:33 Out of Room 06/02/24 13:33 Procedure End 06/02/24 13:33 Into Phase II Recovery 06/02/24 13:35 Out of Phase II 06/02/24 13:57 Procedure Start Time: 12:56 Procedure Stop Time: 13:33 Select all DRAINS/GRAFTS/IMPLANTS that apply: None Estimated Blood Loss: 5 cc Fluids Replaced: none Specimen collected: Yes Description of specimen(s) removed: Cultures from the long finger delayed primary closure wound bed Description of surgery: Indications: Lisandro Garibay is a 58 YO male with right hand flexor tenosynovitis of the long and small finger s/p multiple incision and drainage procedures. He is growing Mycobacterium abscessus. Returning to the OR today for another debridement/wash out and possible delayed primary closure, with plan for Integra to the webspace as with splinting we will be unable to do wound care in this location. Procedure: Patient was correctly identified in preoperative holding and taken back to the operating room he was administered local anesthesia (14 cc of a 50-50 mixture of 1% lidocaine with 1-200,000 epinephrine and 0.25% Marcaine with 1-200,000 epinephrine). He was given time to take effect. He was prepped and draped in sterile fashion. A timeout was performed. A curette and 15 blade scalpel were used to sharply excise necrotic tissue (necrotic skin, fat, fascia, and some necrotic frayed tendon) along the skin edges that had been preventing adequate healing and granulation at the long finger (1x1 cm), and the second webspace between the index and the long fingers (1 x 1 cm). The biofilm was also removed with a curette. The total excision with a sharp curette was 2 square centimeters. Hemostasis was obtained with pressure and bipolar. The wounds were irrigated with 450 cc of Irrisept followed by 3 liters of NS. A culture was taken beneath area of planned delayed primary closure over the exposed tendon on the long finger. By suturing portions of the long finger incision closed in the previous surgery, there was less tension and I could close the volar surface of the long finger completely this time without undue tension. This closure was with a 3-0 Nylon suture (1 cm closure). The webspace wound was then treated with Integra 1 x 1 cm, and was sutured into place with a 4-0 Chromic gut suture. XF was placed in the webspace between the index and the long finger in the area of Integra placement. The rest of the hand was wrapped with gauze, web roll, and a plaster dorsal blocking splint for temporary immobilization as the wounds healed with the fingers slightly flexed to prevent too much tension. Postoperative plan: Continue dorsal blocking splint. I will remove at wound care center on Thursday, 06 Jun 2023. Keep splint dry. Continue ID consult and antibiotics. O.K. for discharge from plastics standpoint. Surgical Findings: Healthy appearing wound bed, ready for complete closure over the long finger (area of exposed tendon). Integra had melted from the wound bed in the webspace (secondary to infection and need for repeat debridement). I therefore placed another piece, also with the intention of keeping wound bed healthy while patient is in splint for the next several days (cannot do wound care). Complications Complications: No Admit VTE Documentation VTE Mechan Device Prophylaxis: SCD's
[2024-06-02] MEDS: Atorvastatin Calcium 40 MG Tablet PO (21:06)
[2024-06-02 22:23] LABS: Bedside Glucose 109 mg/dL (74-106)
[2024-06-03] VITALS (7 sets, daily range): BP systolic 102–122; BP diastolic 62–75; PULSE 50–60; RESP 16–20; TEMP 36.6–37.1; O2SAT 92–98; BMI 37.9
[2024-06-03] MEDS: Acetaminophen 325 MG Tablet 650 MG PO ×2 (01:19→11:33)
[2024-06-03] MEDS: oxyCODONE 5 MG Tablet 10 MG PO ×3 (01:19→11:33)
[2024-06-03] MEDS: Gabapentin 800 MG Tablet PO ×2 (06:33→14:06)
[2024-06-03] MEDS: Levothyroxine 75 MCG Tablet PO (06:33)
[2024-06-03 06:48] LABS: Absolute Lymphocyte Count 2.06 X10^3/uL (0.83-4.51); Absolute Neutrophil Count 1.3 X10^3/uL (2.0-7.7); Basophil# 0.02 X10^3/uL; Basophil% 0.5 % (0-1); Eosinophil# 0.15 X10^3/uL; Eosinophils% 3.9 % (0-5); Hematocrit 39.2 % (40-54); Hemoglobin 13.4 g/dL (13.0-16.5); Lymphocyte # 2.06 X10^3/ul (0.83-4.51); Lymphocyte % 53.9 % (19-41); Mean Corp Hgb Conc 34.2 g/dL (32-36); Mean Corpuscular Hgb 33.9 pg (27.0-32.0); Mean Corpuscular Volume 99.2 fL (80-94); Monocyte# 0.26 X10^3/uL; Monocyte% 6.8 % (0-10); NRBC Flagged by Analyzer 0 % (0-5); Neutrophil # 1.33 X10^3/uL (2.7-7.7); Neutrophil % 34.9 % (47-70); Platelet Count 128 K/mm3 (150-450); RBC Distribution Width CV 12.7 % (11.6-14.6); RBC Distribution Width SD 45.9 fl (35.1-43.9); Red Blood Count 3.95 M/mm3 (4.6-6.2); White Blood Count 3.8 K/mm3 (4.4-11.0)
[2024-06-03 07:04] LABS: Bedside Glucose 88 mg/dL (74-106)
[2024-06-03 07:05] LABS: Anion Gap 6 (5-15); BUN 13 mg/dL (7-18); BUN/Creat Ratio 15.8 RATIO (10-20); Calcium,Total 8.7 mg/dL (8.5-10.1); Chloride 104 mmol/L (98-107); Creatinine, Serum 0.82 mg/dL (0.70-1.30); EST Glomerular Filtration Rate 102 mL/min (>60); Est Glom Filt Rate - Afr Amer 124 mL/min (>60); Estimated Creatinine Clearance 124.92 ml/min; Glucose 94 mg/dL (74-106); Potassium 3.7 mmol/L (3.5-5.1); Sodium Level 137 mmol/L (136-145)
[2024-06-03] MEDS: Ipratropium/Albuterol Sulfate 3 ML AMPUL.NEB INHALATION ×2 (07:08→13:10)
[2024-06-03] MEDS: Budesonide Respules 0.5 MG/2 ML AMPUL.NEB. INHALATION (07:08)
[2024-06-03] MEDS: Enoxaparin 40 MG/0.4 ML Syringe SC (08:07)
[2024-06-03] MEDS: Fluticasone 0.05% 1 SPRAY NASAL.SRY NASAL (08:07)
[2024-06-03] MEDS: Lactobacillis Acidophilus 1 CAP PO ×2 (08:08→14:06)
[2024-06-03] MEDS: Linezolid 600 MG Tablet PO (08:08)
[2024-06-03] MEDS: Isosorbide Mononitrate 30 MG Tablet PO (08:08)
[2024-06-03] MEDS: Clopidogrel Bisulfate 75 MG Tablet PO (08:08)
[2024-06-03] MEDS: Azithromycin 250 MG Tablet 500 MG PO (08:08)
[2024-06-03] MEDS: Furosemide 20 MG Tablet 60 MG PO (08:08)
[2024-06-03] MEDS: Ascorbic Acid 500 MG Tablet 1000 MG PO (08:08)
[2024-06-03] MEDS: DULoxetine Hcl 60 MG Capsule PO (08:08)
[2024-06-03] MEDS: Losartan Potassium 25 MG Tablet PO (08:08)
[2024-06-03] MEDS: Pantoprazole Sodium 40 MG Tablet PO (08:08)
[2024-06-03] MEDS: Aspirin E.C. 81 MG Tablet PO (08:08)
[2024-06-03] MEDS: Multivitamins,Therapeutic Tablet 1 TABLET PO (08:09)
--- NOTE | 2024-06-03 08:14 | PCM.PN.SRG ---
Subjective Subjective Doing well. Pain controlled. Objective Data Objective Data Vital Signs: Vital Signs Temp Pulse Resp BP Pulse Ox O2 Del Method O2 Flow Rate 97.9 F 58 L 20 H 114/69 92 Room Air 2 06/03/24 06:28 06/03/24 07:30 06/03/24 07:30 06/03/24 06:28 06/03/24 08:07 06/03/24 08:07 06/02/24 22:47 Oxygen Flow Rate (L/min) 2 Oxygen Delivery Method Room Air Weight: 255 lb 15.307 oz Body Mass Index (BMI) 37.9 Intake & Output: Intake and Output for Last 24 Hours 06/01/24 06/02/24 06/03/24 23:59 23:59 23:59 Intake Total 505.3 / 505.3 563.8 / 563.8 Balance 505.3 / 505.3 563.8 / 563.8 Lab / Micro Data 06/03/24 06:19 06/03/24 06:19 Labs: Laboratory Results - last 24 hr 06/01/24 22:27: Miscellaneous Test COMMENT 06/02/24 16:12: POC Glucose 97 06/02/24 21:04: POC Glucose 109 H 06/03/24 06:19: WBC 3.8 L, RBC 3.95 L, Hgb 13.4, Hct 39.2 L, MCV 99.2 H, MCH 33.9 H, MCHC 34.2, RDW Std Deviation 45.9 H, RDW Coeff of Autumn 12.7, Plt Count 128 L, MPV 11.0, Immature Gran % (Auto) 0.000, Neut % (Auto) 34.9 L, Lymph % (Auto) 53.9 H, [place] % (Auto) 6.8, Eos % (Auto) 3.9, Baso % (Auto) 0.5, Absolute Neuts (auto) 1.3 L, Absolute Lymphs (auto) 2.06, Nucleated RBC % 0, Sodium 137, Potassium 3.7, Chloride 104, Carbon Dioxide 28.0, Anion Gap 6, BUN 13, Creatinine 0.82, Estim Creat Clear Calc 124.92, Est GFR (MDRD) Af Amer 124, Est GFR (MDRD) Non-Af 102, BUN/Creatinine Ratio 15.8, Glucose 94, Calcium 8.7 01/03/25 06:36: POC Glucose 88 Micro: Microbiology 05/27/24 16:48 Wound Abcess - Finger Gram Stain - Final 05/27/24 16:48 Wound Abcess - Finger Wound Culture - Final No growth aerobically. 05/27/24 16:48 Wound Abcess - Finger Anaerobic Culture - Final No growth in 5 days. 05/27/24 16:35 Wound Abcess - Finger Gram Stain - Final 05/27/24 16:35 Wound Abcess - Finger Wound Culture - Final No growth aerobically. 05/27/24 16:35 Wound Abcess - Finger Anaerobic Culture - Final No growth in 5 days. 05/31/24 14:55 Wound - Right Hand Gram Stain - Final 05/31/24 14:55 Wound - Right Hand Wound Culture - Preliminary No growth-Final to follow 05/31/24 14:55 Wound - Right Hand Anaerobic Culture - Preliminary No growth in 48 hours. 05/26/24 Unknown Wound Abcess - Right Hand Gram Stain - Final 05/26/24 Unknown Wound Abcess - Right Hand Wound Culture - Final No growth aerobically. 05/26/24 Unknown Wound Abcess - Right Hand Anaerobic Culture - Final No growth in 5 days. 05/26/24 Unknown Wound Abcess - Right Hand Gram Stain - Final 05/26/24 Unknown Wound Abcess - Right Hand Wound Culture - Final No growth aerobically. 05/26/24 Unknown Wound Abcess - Right Hand Anaerobic Culture - Final No growth in 5 days. Rhythm Strip Rhythm Strip: Sinus Rhythm Rate: 67 Ectopy: None Physical Exam Narrative Splint in place. No strike through bleeding. Finger tips warm and well perfused. Assessment & Plan Assessment/Plan (1) Flexor tenosynovitis of finger: PLAN: OK for DC today, 03 Jun 2023, from plastic surgery standpoint. I will f/u with him on Thursday, 06 Jun 2023, in the wound care center for wound check and splint change. Charges/Coding Procedures Integumentary [id number]: [id number] Global Visit
--- NOTE | 2024-06-03 09:54 | CASEMGMT ---
Addendum entered by Skylar Acuna 06/03/24 15:22: Sent dc instructions to [facility] via [employer]. Addendum entered by Skylar Acuna 06/03/24 15:09: TC to [facility]'s pharmacy, they received the rx and the linezolid does need PA. Ballard code is [id number]. Addendum entered by Skylar Acuna 06/03/24 13:51: Faxed [facility], pt po atb. TC to them to make sure received and to see if there is a PA and cost, left vm requesting a returned call. Addendum entered by Skylar Acuna 06/03/24 13:41: CORRY KING in pt room, pt lying in bed in no distress. Pt is aware that [facility] is the agency who has accepted him. He is agreeable to this. Spoke to him regarding the IV atb and he is aware there is no charge for the medication per [facility] and it will delivered to his home this evening or in the morning. Discussed with pt his other medications, he states he will go home and see what he exactly needs to refill and call [facility] as he may want the meds trf'd to them as they let him pay over time the deductible. Pt is aware of the [employer] savings card online and he will fill this out at home for the $10 copay. Advised pt he can call his pulm to see about the trilegy. Received rx for po atb from , pt states he wants them sent to [facility]'s pharmacy. Pt denies further needs at this time. Addendum entered by Skylar Acuna 06/03/24 13:14: Received tc from [facility], they are able to accept pt for SOC tomorrow. Faxed rx for IV to [facility] and uploaded to [facility]port to I. [facility] declined pt as well. Addendum entered by Skylar Acuna 06/03/24 10:34: [facility] and [facility] declined referral. TC to [facility] at [facility] to see if they have availability tomorrow as pt did not dc as anticipated with previous referral. Wound nurse notified this RN CHRISTINE that pt states his rx are approx $1400. TC to [facility], spoke with Tawana. She states that pt needs to meet a deductible of $2800. These are not meds that were called in from the hospital stay, they are chronic meds. She states that they do have pt new insurance information. She suggests pt call his insurance to discuss this as they can give him more specifics about his plan. Original Note: Rounded with hospitalist, ID to see pt by 2pm today for final atb recommendation. Updated [facility] via [employer] at this time. Referrals sent to the agencies on the list to see who can accept pt for care tomorrow.
[2024-06-03 11:52] LABS: Bedside Glucose 126 mg/dL (74-106)
[2024-06-03] MEDS: NORMAL SALINE 0.9% IV (12:31)
[2024-06-03] MEDS: AMIKACIN SULFATE IV (12:31)
--- NOTE | 2024-06-03 12:55 | PCM.PN.ID ---
ID ID: Route of nutrition/ use of supplements: [] Nutritional Intake: [] IV Site: [] Barr Catheter: [] Patient is overall clinically stable. Has undergone multiple debridements of the right hand and overall clinically stable. Peers to be tolerating antimicrobial therapy well. Renal function remains intact on daily amikacin. Mycobacterium abscessus isolated in one of the intraoperative specimens with sensitivities to macrolides pending. Alert responsive does not appear toxic right hand dressings are in place. Patient has a right arm PICC line. Does not appear toxic. Abdomen soft nontender Assessment & Plan Assessment/Plan (1) Abscess of hand, right: PLAN: Patient is scheduled to go home on antimicrobial therapy in the form of linezolid 600 mg daily plus azithromycin 500 mg daily, amikacin 1325 mg IV daily via the right arm PICC line. I wrote the prescription for 1 month. I did advise the patient to hold the follow-up with either myself or Dr. Levin over the next month to follow the clinical progress and continue antimicrobial therapy. I also ordered a BMP every Thursday and and a CBC every Thursday for the next month.
--- NOTE | 2024-06-03 15:00 | DS.PCM_ITS ---
Providers Date of Admission: 05/23/24 Date of Discharge: 06/03/24 Primary Care Physician: Viola Gunderson, Bebe, SETTLEMENT PROCESSOR-C Consultations 05/23/24 22:26 Consult: General Surgery Routine Consulting Provider: Sergio Edwards Reason for Consult: Right Hand Abscess. EMERGENT Consult: No Notified: Yes Date Notified: 05/23/24 Time Notified: 22:03 Method of Notification: ED Physician Initiated Consult: Infectious Disease Routine Consulting Provider: Sergio Levin Reason for Consult: Right Hand Abcess with AFB. EMERGENT Consult: No MD Notified: Yes Date Notified: 05/23/24 Time Notified: 22:03 Method of Notification: ED Physician Initiated Consult: Onc/Wound/fire protection specialist Routine Comment: Reason for Consult:: Right Hand Abscess. Reason For Visit: ABSCESS OF THE 5TH DIGIT OF THE RIGHT HAND Diagnosis Discharge Diagnosis (1) Abscess of hand, right: Status: Acute Code(s): L02.511 - Cutaneous abscess of right hand Plan #Right hand abscess * has had a protracted course with regards to his right hand for several months * had right long finger flexor tenosynovitis /p I&D with washout. He subsequently had debridement for delayed primary closure of the wound on 03/23 and also on 04/13 * he subsequently developed abscess in the right hand and had multiple rounds of antibiotics to no avail. 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 * had I&D done on 05/26 and 05/27. * Also had delayed primary closure on 05/31 * ID on board. On PO linezolid, azithromycin and amikacin * for further surgery by plastic surgery toay * has PICC line in situ * #History of CAD s/p stents: on aspirin, plavix, statin and lasix as well as imdur and osartan. #Type 2 diabetes mellitus with neuropathy. On ISS. Accuchecks ACHS. On gabapentin. #COPD: not in exacerbation. Breathing treatment with bronchodilators. #Anxiety and depression; on duloxetine and mirtazapine. #Thrombocytopenia: platelets are 137 today. This is chronic. #GERD: on PPI #Hyperlipidemia: on statin #Hypertension: on losartan. #History of TIA: on aspirin, plavix and statin. #Hypothyroidism:on synthroid. #Nicotine dependence: on nicotine patch. DVT prophylaxis: lovenox Medications at Discharge Home Medications albuterol sulfate 90 mcg/actuation aerosol inhaler 6.7 g inhalation PRN PRN Wheezing 12/06/14 ergocalciferol (vitamin D2) 1,250 mcg (50,000 unit) capsule 50,000 unit PO Q7D SUPPLEMENT 12/06/14 fluticasone propionate 50 mcg/actuation nasal spray,suspension 1 spray NASAL DAILY ALLERGIES 05/05/16 aspirin 81 mg tablet,delayed release 81 mg PO DAILY HEART 08/11/19 duloxetine 60 mg capsule,delayed release 60 mg PO DAILY MOOD 08/11/19 levothyroxine 50 mcg tablet 75 mcg PO DAILY THYROID 08/11/19 losartan 50 mg tablet 25 mg PO QDAY BLOOD PRESSURE 08/11/19 mirtazapine 15 mg tablet 45 mg PO QHS SLEEP AND RLS 08/11/19 multivitamin 1 cap PO DAILY SUPPLEMENT 08/11/19 nitroglycerin 0.4 mg sublingual tablet (Nitrostat) 0.4 mg sublingual ONCE PRN chest pain 08/11/19 budesonide-formoterol HFA 160 mcg-4.5 mcg/actuation aerosol inhaler 2 puff inhalation BID COPD #10.2 grams 12/05/19 clopidogrel 75 mg tablet 75 mg PO QDAY BLOOD THINNER #90 tabs 12/29/19 furosemide 40 mg tablet (Lasix) 60 mg PO DAILY WATER PILL 11/15/20 metformin 1,000 mg tablet 1,000 mg PO BID DIABETES 11/15/20 isosorbide mononitrate 60 mg tablet,extended release 24 hr 30 mg (1/2 x 60 mg) PO BID HEART #90 tabs 12/03/21 omeprazole 40 mg capsule,delayed release 40 mg PO DAILY GERD 1 month #30 caps 06/05/23 rosuvastatin 20 mg tablet 20 mg PO QHS CHOLESTEROL 1 month #30 tabs 06/05/23 empagliflozin 25 mg tablet (Jardiance) 25 mg PO DAILY DAIBETES #30 tabs 11/24/23 fluticasone fur. 100 mcg-umeclid 62.5 mcg-vilant 25 mcg inhalat.powder (Trelegy Ellipta) 1 ea inhalation DAILY copd 03/07/24 gabapentin 800 mg tablet 800 mg PO TID pain 03/07/24 dulaglutide 1.5 mg/0.5 mL subcutaneous pen injector (Trulicity) 1.5 mg subcut MENON DIABETES 03/22/24 doxycycline monohydrate 100 mg capsule 100 mg PO BID 10 days #20 caps 05/19/24 Hospital Course Operations - (incision and drainage of abscess) Procedures None Summary of Care Provided Minutes Spent on Discharge: 45 Hospital Course: Patient is a 58-year-old male with a past medical history as outlined was admitted through the ED on 05/23/2024 with a complaint of swelling and abscess of the fifth digit of the right hand. She had had surgical I&D by Dr. Negro for the same problem on April 27, 2024 and subsequently had a second I&D on May 05, 2024. He was placed on Keflex and doxycycline after these 2 I&D's. However he came into the ED on the aforementioned date of 05/23/2024 with a complaint of abscess and swelling of the fifth digit of his right hand. He denied any associated fever or chills, nausea vomiting or any other symptoms. Cultures had grown positive for AFB. He was admitted and managed for cellulitis with abscess of the third and fifth digits of the right hand with failed outpatient treatment. Was started on IV vancomycin and Zosyn and plastic surgery and ID were consulted. Patient had a protracted hospital course. 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 He had multiple I&D and debridement done by plastic surgery during this admission. On 06/02/2024 he had debridement and washout of the right long finger done as well as the pulmonary and webspace intubation for delayed primary closure. He was on broad-spectrum antibiotics during this admission and was transitioned to p.o. linezolid, p.o. azithromycin and IV amikacin. Patient remained stable and was discharged home on 06/03/2024. He was given a prescription for p.o. linezolid, p.o. azithromycin and IV amikacin for 1 month. Prescription was written by ID. He is to follow-up with his primary care doctor within 1 week and is to follow- up with plastic surgery on June 20 at the wound center. He is also to follow-up with ID within 1 to 2 weeks. Patient seen and examined prior to discharge. He had no active complaints. He was looking forward to being discharged because he was going to a pain management appointment this afternoon. Review of systems otherwise negative. Labs and vitals reviewed. home medication reviewed and reconciled. Physical Exam Const alert, oriented x3 and no apparent distress General Appearance: cooperative and comfortable Orientation / Consciousness: awake HEENT normocephalic, head/scalp atraumatic, hearing grossly normal bilaterally, nasal mucous membranes and turbinates normal and moist oral mucous membranes Mouth: oral and palatal mucosa normal Eyes PERRL, EOMs intact bilaterally and conjunctivae normal Neck full ROM, no lymphadenopathy and supple Lymph Lymphatic: no lymphadenopathy noted and no lymphedema noted Chest inspection of chest normal Resp normal respiratory effort, normal air movement, no retractions, no use of accessory muscles and clear to auscultation bilaterally Cardio regular rate, regular rhythm, S1 normal heart sound, S2 normal heart sound, no murmurs and peripheral pulses 2+ throughout GI normal to inspection, nondistended, normoactive bowel sounds, soft to palpation, non-tender and non-distended GI Narrative: Obese. Back/Spine normal ROM Extremity Extremity Narrative: right hand wrapped in bandage Skin Skin Narrative: as under extremity Neuro oriented x3, CN's II-XII intact bilaterally, moves all extremities, no focal motor deficits and no sensory deficits noted Sensorium / Orientation: awake, alert, oriented to person, oriented to place and oriented to time Speech: speech normal Motor Exam: strength 5/5 throughout and general weakness Psych mental status grossly normal, thought process normal, cooperative and affect normal Appearance: appropriate Weight / BMI Weight Weight: 255 lb 15.307 oz Body Mass Index (BMI) 37.9 ABG / Lab / Microbiology Data 06/03/24 06:19 06/03/24 06:19 Laboratory: Laboratory Results - last 24 hr 06/01/24 22:27: Miscellaneous Test COMMENT 06/02/24 16:12: POC Glucose 97 06/02/24 21:04: POC Glucose 109 H 06/03/24 06:19: WBC 3.8 L, RBC 3.95 L, Hgb 13.4, Hct 39.2 L, MCV 99.2 H, MCH 33.9 H, MCHC 34.2, RDW Std Deviation 45.9 H, RDW Coeff of Autumn 12.7, Plt Count 128 L, MPV 11.0, Immature Gran % (Auto) 0.000, Neut % (Auto) 34.9 L, Lymph % (Auto) 53.9 H, Edmunds % (Auto) 6.8, Eos % (Auto) 3.9, Baso % (Auto) 0.5, Absolute Neuts (auto) 1.3 L, Absolute Lymphs (auto) 2.06, Nucleated RBC % 0, Sodium 137, Potassium 3.7, Chloride 104, Carbon Dioxide 28.0, Anion Gap 6, BUN 13, Creatinine 0.82, Estim Creat Clear Calc 124.92, Est GFR (MDRD) Af Amer 124, Est GFR (MDRD) Non-Af 102, BUN/Creatinine Ratio 15.8, Glucose 94, Calcium 8.7 06/03/24 06:36: POC Glucose 88 06/03/24 11:32: POC Glucose 126 H Microbiology: Microbiology 06/02/24 13:30 Wound - Right Hand Gram Stain - Final 06/02/24 13:30 Wound - Right Hand Wound Culture - Preliminary No growth-Final to follow 05/31/24 14:55 Wound - Right Hand Gram Stain - Final 05/31/24 14:55 Wound - Right Hand Wound Culture - Final No growth aerobically. 05/31/24 14:55 Wound - Right Hand Anaerobic Culture - Preliminary No growth in 48 hours. 05/27/24 16:48 Wound Abcess - Finger Gram Stain - Final 05/27/24 16:48 Wound Abcess - Finger Wound Culture - Final No growth aerobically. 05/27/24 16:48 Wound Abcess - Finger Anaerobic Culture - Final No growth in 5 days. 05/27/24 16:35 Wound Abcess - Finger Gram Stain - Final 05/27/24 16:35 Wound Abcess - Finger Wound Culture - Final No growth aerobically. 05/27/24 16:35 Wound Abcess - Finger Anaerobic Culture - Final No growth in 5 days. 05/26/24 Unknown Wound Abcess - Right Hand Gram Stain - Final 05/26/24 Unknown Wound Abcess - Right Hand Wound Culture - Final No growth aerobically. 05/26/24 Unknown Wound Abcess - Right Hand Anaerobic Culture - Final No growth in 5 days. 05/26/24 Unknown Wound Abcess - Right Hand Gram Stain - Final 05/26/24 Unknown Wound Abcess - Right Hand Wound Culture - Final No growth aerobically. 05/26/24 Unknown Wound Abcess - Right Hand Anaerobic Culture - Final No growth in 5 days. D/C Instructions Discharge Diet: Low fat / Low cholesterol Discharge Activity: Return to Normal Activity Weight Bearing Status: Weight bearing as tolerated Call your doctor if you observe: Fever of 101 or Higher, Shortness of breath, Dizziness, Swelling in the ankles, Chest pain and Uncontrolled pain DC O2, CPAP, BIPAP Needs Home O2 Discharge instructions: No DC home with Oxygen: No Meaningful Use Info Meaningful Use Meaningful Use Diagnoses (Choose all that apply): None applicable Ischemic Stroke Statin Dosing Therapy Reference: STATIN DOSE THERAPY REFERENCE: * Patients > 75 years receive moderate or high dose statin therapy. * Patients 75 years or YOUNGER should receive HIGH intensity statin dose unless contraindicated. You will be required to document reason for non-treatment if statin daily dose does not meet guidelines. HIGH DOSE STATIN THERAPY DAILY Atorvastatin > than or = to 40 mg Rosuvastatin > than or = to 20 mg Amlodipine + Atorvastatin > than or = to 2.5/40 mg Ezetimibe + Simvastatin 10/80 mg Simvastatin 80mg Discharge Plan Admission Admit Date/Time: 05/23/24 21:54 Primary Reason for Your Visit: right hand abscess Attending Provider: Sharon Lawton Primary Care Provider: Viola Gunderson [facility] Consulting Providers: Sergio Edwards; Sergio Levin; Lisandro Mobley; Nicky Nuñez; Dilshad Chand Instructions Patient Instructions: Abscess Drainage Additional Instructions / Restrictions: Prescription written for p.o. linezolid 600 mg daily and p.o. azithromycin 500 mg daily as well as IV amikacin thousand 325 mg daily at his right arm PICC line for 1 month by ID. Discharge Orders/Prescriptions Prescriptions: Continued losartan 50 mg tablet 25 mg PO QDAY aspirin 81 mg tablet,delayed release (DR/EC) 81 mg PO DAILY duloxetine 60 mg capsule,delayed release(DR/EC) 60 mg PO DAILY nitroglycerin [Nitrostat] 0.4 mg tablet, sublingual 0.4 mg SUBLINGUAL ONCE PRN (Reason: chest pain) Rx Instructions: as a single dose; administer 5-10 minutes before situation known to precipitate angina attack multivitamin Capsule 1 cap PO DAILY rosuvastatin 20 mg tablet 20 mg PO QHS 30 Days Qty: 30 3RF omeprazole 40 mg capsule,delayed release(DR/EC) 40 mg PO DAILY 30 Days Qty: 30 2RF doxycycline monohydrate 100 mg capsule 100 mg PO BID 10 Days Qty: 20 0RF ergocalciferol (vitamin D2) 50,000 UNIT capsule 50,000 unit PO Q7D albuterol sulfate 6.7 GM HFA aerosol inhaler 6.7 g inhalation PRN PRN (Reason: Wheezing) levothyroxine 50 mcg tablet 75 mcg PO DAILY mirtazapine 15 mg tablet 45 mg PO QHS fluticasone propionate 1 SPRAY spray,suspension 1 spray NASAL DAILY Trelegy Ellipta 100-62.5-25 mcg blister with device 1 ea inhalation DAILY gabapentin 800 mg tablet 800 mg PO TID Jardiance 25 mg tablet 25 mg PO DAILY Qty: 30 0RF Trulicity 1.5 mg/0.5 mL pen injector 1.5 mg subcut MENON Patient Comments: TAKES ON SUNDAYS budesonide-formoterol 160-4.5 mcg/actuation HFA aerosol inhaler 2 puff INHALATION BID Qty: 10.2 11RF clopidogrel 75 mg tablet 75 mg PO QDAY Qty: 90 3RF metformin 1,000 mg tablet 1,000 mg PO BID furosemide [Lasix] 40 mg tablet 60 mg PO DAILY isosorbide mononitrate 60 mg tablet extended release 24 hr 30 mg PO BID Qty: 90 3RF Discontinued cefadroxil 500 mg capsule 500 mg PO BID 10 Days Qty: 20 0RF cephalexin 500 mg capsule 500 mg PO Q8H 7 Days Qty: 21 0RF Referrals / Follow Up: Sergio Levin MD [Med Staff - Active Staff] - Within 2 Weeks Sergio Edwards MD [Med Staff - Active Staff] - Within 1 Week Viola Gunderson SETTLEMENT PROCESSOR-C [Primary Care Provider] - Within 1 Month Disposition Disposition (needs filled in before D/C Order can be placed): Home Health Service Charges/Coding Visit Charges Inpatient E&M: 23517 Disch Hosp >30min
--- NOTE | 2024-06-03 16:17 | CASEMGMT ---
Addendum entered and electronically signed by Catia Rolle RN 06/03/24 17:05: Call placed to [facility] to discuss language on denial form they provided to this RN CM. Discussed coupon code listed with different BIN and PCU group and office machines sales representative states this is a common code provided in rejection communications and does not provide much coverage for these higher costs meds including the Linezolid. Relayed that prior auth remains pending at this time. Confirmed [facility] is not open on the weekend and if authorized after 5pm, it will not be available until Thursday AM. Call placed to Dr. Francisco to notify of delay in receipt of medication. Requested a few pills be dispensed if possible from pharmacy to get pt through the weekend. Call placed [facility] and this RN CM spoke with Jessica who stated she could provide a few pills to get pt through the weekend while prior is pending. Call placed to pt, voicemail received. Call placed to pt's who states pt is with his pain physician at this time and they would not be able to get to [facility] before they closed at 5pm. Call placed to [facility] and Jessica notified of the same. Jessica requested 's phone number which was provided so could coordinate worm picker time. Recheck on [facility] for prior authorization which remains pending. Will recheck status of prior auth on Thursday, 06/06. CORRY Armstrong Original Note: CORRY CM: Linezolid prior authorization request received from [facility]. Prior auth request submitted via [facility] using archer: [email or web address]. Corresponding form not found. Call placed to [facility] and per office machines sales representative Eva, recommended that Bin, Rx group, and PCN#'s be validated with pharmacy and if correct, to use the [place] prior auth request form. Call placed to [facility] and confirmed Bin#[id number], PCN#[id number], and RXGroup [id number]. [place] prior auth form selected and corresponding questions completed with ID progress note included in submission. At this time, prior auth is stated to be pending review by [facility] with expected response within 24 hours. Will monitor for approval and follow-up as indicated. CORRY Armstrong
--- NOTE | 2024-06-07 10:55 | CASEMGMT ---
CORRY CM: Confirmed with Cover[employer] that pt's Linezolid was authorized on 06/03/24. Call placed to patient who confirms he did receive the antibiotic. Pt denies any concerns or questions at this time and states he has what he needs. Tom Rodríguez RN AC
== END 2024-06-03 15:01 | disposition home health service (06) | DRG 629 ==
LOC: ED 20:59 → MS3 05-24 03:54
PROVIDERS: Anesthesiology; Family Medicine; Hospitalist; Internal Medicine Infectious Disease; Surgery Plastic and Reconstructive Surgery; Admitting Provider Internal Medicine; Emergency Provider Emergency Medicine; PCP Nurse Practitioner Family; Visit Provider Student in an Organized Health Care Education/Training Program
PROC: 0LB70ZZ Excision of Right Hand Tendon, Open Approach (ICD-10-PCS; principal; 2024-05-26 15:15)
DX: E11.628 Type 2 diabetes mellitus with other skin complications (principal); L03.113 Cellulitis of right upper limb; I96 Gangrene, not elsewhere classified; A31.9 Mycobacterial infection, unspecified; L02.413 Cutaneous abscess of right upper limb; L02.511 Cutaneous abscess of right hand; E03.9 Hypothyroidism, unspecified; E11.65 Type 2 diabetes mellitus with hyperglycemia; J44.89 Other specified chronic obstructive pulmonary disease; I10 Essential (primary) hypertension; G25.81 Restless legs syndrome; F32.A Depression, unspecified; E66.812 Obesity, class 2; E11.42 Type 2 diabetes mellitus with diabetic polyneuropathy; M65.141 Other infective (teno)synovitis, right hand; E78.00 Pure hypercholesterolemia, unspecified; Z79.4 Long term (current) use of insulin; F17.200 Nicotine dependence, unspecified, uncomplicated; I25.10 Atherosclerotic heart disease of native coronary artery without angina pectoris; G47.33 Obstructive sleep apnea (adult) (pediatric); K21.9 Gastro-esophageal reflux disease without esophagitis; F41.9 Anxiety disorder, unspecified; S61.401A Unspecified open wound of right hand, initial encounter; M65.041 Abscess of tendon sheath, right hand; M65.841 Other synovitis and tenosynovitis, right hand; E66.9 Obesity, unspecified; Z95.5 Presence of coronary angioplasty implant and graft; Z79.85 Long-term (current) use of injectable non-insulin antidiabetic drugs; Z79.82 Long term (current) use of aspirin; Z79.02 Long term (current) use of antithrombotics/antiplatelets; Z79.2 Long term (current) use of antibiotics; Z79.84 Long term (current) use of oral hypoglycemic drugs; Z79.51 Long term (current) use of inhaled steroids; Z79.890 Hormone replacement therapy; Z86.73 Personal history of transient ischemic attack (TIA), and cerebral infarction without residual deficits; Z68.37 Body mass index [BMI] 37.0-37.9, adult; X58.XXXA Exposure to other specified factors, initial encounter
CPT/HCPCS: 36415; 36569; 71045; 73130; 80048; 80053; 80202; 82962; 83036; 83735; 84100; 84439; 84443; 84484; 85025; 85027; 85652; 86140; 87015; 87070; 87075; 87102; 87116; 87205; 87206; 88304; 93005; 94640; 94668; 99284; J2185; A4216; J0278; J2405

== ENCOUNTER 2024-06-20 11:15 | Outpatient (RCR) | payer MEDICAID, SELFPAY ==
[2024-06-01 00:44] VITALS: BP 130/62; PULSE 71; RESP 18; TEMP 36.5; BMI 36.9
[2024-06-06 14:35] VITALS: BP 148/68; PULSE 67; RESP 16; TEMP 36.7; BMI 36.9
--- NOTE | 2024-06-06 15:49 | PCM.PN.BLA ---
Progress Note Pain stable. Saw pain management physician as well. No new pain today. No fevers or chills. No pain in wrist or proximal palm. Some pain still over incisions, but not worsening. Has been compliant with home IV antibiotics (Amikacin, Linezolid) and his PO azithromycin. Home health has been in assistance. Still smoking. Continues to report good sugar control. Physical Exam Narrative RUE: Splint removed. No drainage or induration. No TTP over the palm/carpal tunnel. Incisions are c/d/i. Integra with good incorporation. No signs of abscess or recurrent infection at this time. No exposed tendon/critical structures. Splinted Assessment & Plan Assessment/Plan (1) Flexor tenosynovitis of finger: PLAN: Stable post-operative course thus far Needs close follow up later this week. Continue Dorsal blocking/flexion splint to protect incisions for now as they heal. Appreciate ID for antibiotics and home health. Procedures Integumentary [id number]: [id number] Global Visit
[2024-06-13 15:28] VITALS: BP 134/66; PULSE 74; RESP 15; TEMP 36.1; BMI 36.9
[2024-06-13 18:43] LABS: Hematocrit 45.2 % (40-54); Hemoglobin 15.5 g/dL (13.0-16.5); Mean Corp Hgb Conc 34.3 g/dL (32-36); Mean Corpuscular Hgb 33.9 pg (27.0-32.0); Mean Corpuscular Volume 98.9 fL (80-94); Mean Platelet Vol. 10.4 fl (6.2-12.0); Platelet Count 179 K/mm3 (150-450); RBC Distribution Width SD 47.1 fl (35.1-43.9); Red Blood Count 4.57 M/mm3 (4.6-6.2); White Blood Count 7.7 K/mm3 (4.4-11.0)
[2024-06-13 19:00] LABS: Anion Gap 5 (5-15); BUN 14 mg/dL (7-18); BUN/Creat Ratio 15.8 RATIO (10-20); Calcium,Total 9.6 mg/dL (8.5-10.1); Chloride 102 mmol/L (98-107); Creatinine, Serum 0.89 mg/dL (0.70-1.30); EST Glomerular Filtration Rate 94 mL/min (>60); Est Glom Filt Rate - Afr Amer 114 mL/min (>60); Glucose 95 mg/dL (74-106); Potassium 3.9 mmol/L (3.5-5.1); Sodium Level 137 mmol/L (136-145)
--- NOTE | 2024-06-14 06:59 | PCM.PN.BLA ---
Progress Note Doing well overall. Tolerating the IV antibiotics and following up closely with ID team for labs. No fevers or chills. Pain improved greatly. Compliant with splint (removed/discontinued today). Physical Exam Narrative RUE: No drainage or induration. No TTP over the palm/carpal tunnel. Incisions are c/d/i and re-epithelialized. Integra with good incorporation. No signs of abscess or recurrent infection at this time. No exposed tendon/critical structures. Motor: Some stiffness in the long and ring fingers , but bends all MP, PIP, and DIP joints. Sensation: Intact to light touch on the radial and ulnar borders of all fingers. Assessment & Plan Assessment/Plan (1) Flexor tenosynovitis of finger: PLAN: Stable post-operative course thus far Appreciate ID for antibiotics and home health. Xeroform over the Integra. F/u in 1 week for a check and for suture removal. Procedures Integumentary [id number]: [id number] Global Visit
--- NOTE | 2024-06-20 11:19 | PCM.PN.SRG ---
Subjective Subjective Doing well. No fevers/chills or drainage. Tolerating infectious disease IV antibiotics. Objective Data Objective Data Vital Signs: Vital Signs Temp Pulse Resp BP O2 Del Method 96.9 F L 74 15 134/66 H Room Air 06/13/24 15:28 06/13/24 15:28 06/13/24 15:28 06/13/24 15:28 06/06/24 14:35 Oxygen Delivery Method Room Air Weight: 250 lb Body Mass Index (BMI) 36.9 Lab / Micro Data 06/13/24 17:30 06/13/24 17:30 Physical Exam Narrative RUE: No drainage or induration. No TTP over the palm/carpal tunnel. Incisions are c/d/i and re-epithelialized. Integra with good incorporation. No signs of abscess or recurrent infection at this time. No exposed tendon/critical structures. Motor: Some stiffness in the long and ring fingers , but bends all MP, PIP, and DIP joints. Sensation: Intact to light touch on the radial and ulnar borders of all fingers. Const alert and oriented x3 Assessment & Plan Assessment/Plan (1) Infected hand: (2) Abscess of hand, right: (3) Flexor tenosynovitis of finger: PLAN: Stable post-operative course thus far. Appreciate ID for antibiotics and home health. Xeroform over the Integra. To be changed daily with band aid Sutures removed in clinic today without issues. No exposure of critical structures/tendon. Incisions have healed except for area of Integra in the index/long webspace. Integra has nearly epithelialized. Discussed risks, benefits, and alternatives to skin grafting. Patient would like to defer skin graft at this time (understands that he could get further scaring/contracture in this location). I am referring to hand therapy for ROM. F/u with me in 1 week. Charges/Coding Procedures Integumentary [id number]: [id number] Global Visit
[2024-06-20 11:22] VITALS: BP 131/73; PULSE 87; RESP 18; TEMP 36.5; BMI 36.9
--- NOTE | 2024-06-21 09:02 | WC ---
PHOTO 06/20/24 RIGHT HAND
--- NOTE | 2024-06-21 09:03 | WC ---
PHOTO 06/20/24 1&2 DIGIT HAND WEBBING
== END 2024-07-01 23:59 | disposition home or self-care (01) ==
LOC: WC 11:15
PROVIDERS: PCP Nurse Practitioner Family; Referring Provider Surgery Plastic and Reconstructive Surgery; Visit Provider Surgery Plastic and Reconstructive Surgery
DX: L02.511 Cutaneous abscess of right hand (principal); M65.949 Unspecified synovitis and tenosynovitis, unspecified hand
CPT/HCPCS: 80048; 85027; 99213; 99214; G0463

== ENCOUNTER 2024-06-20 15:49 | Outpatient (RCR) | payer MEDICAID, SELFPAY ==
[2024-06-06 12:26] LABS: Hematocrit 43.4 % (40-54); Mean Corp Hgb Conc 34.6 g/dL (32-36); Mean Corpuscular Hgb 34.6 pg (27.0-32.0); Mean Platelet Vol. 10.9 fl (6.2-12.0); Platelet Count 136 K/mm3 (150-450); RBC Distribution Width CV 12.7 % (11.6-14.6); RBC Distribution Width SD 47.2 fl (35.1-43.9); Red Blood Count 4.34 M/mm3 (4.6-6.2); White Blood Count 4.6 K/mm3 (4.4-11.0)
[2024-06-06 12:51] LABS: Anion Gap 1 (5-15); BUN 16 mg/dL (7-18); BUN/Creat Ratio 20.2 RATIO (10-20); Calcium,Total 8.9 mg/dL (8.5-10.1); Chloride 110 mmol/L (98-107); Creatinine, Serum 0.79 mg/dL (0.70-1.30); EST Glomerular Filtration Rate 107 mL/min (>60); Est Glom Filt Rate - Afr Amer 129 mL/min (>60); Glucose 115 mg/dL (74-106); Potassium 3.8 mmol/L (3.5-5.1); Sodium Level 141 mmol/L (136-145)
[2024-06-09 12:38] LABS: Anion Gap 6 (5-15); BUN 11 mg/dL (7-18); Calcium,Total 9.2 mg/dL (8.5-10.1); Chloride 106 mmol/L (98-107); Creatinine, Serum 0.79 mg/dL (0.70-1.30); EST Glomerular Filtration Rate 108 mL/min (>60); Est Glom Filt Rate - Afr Amer 131 mL/min (>60); Glucose 94 mg/dL (74-106); Potassium 3.8 mmol/L (3.5-5.1); Sodium Level 140 mmol/L (136-145)
[2024-06-16 16:23] LABS: Anion Gap 6 (5-15); BUN 13 mg/dL (7-18); BUN/Creat Ratio 14.1 RATIO (10-20); Calcium,Total 9.4 mg/dL (8.5-10.1); Chloride 104 mmol/L (98-107); Creatinine, Serum 0.92 mg/dL (0.70-1.30); EST Glomerular Filtration Rate 90 mL/min (>60); Est Glom Filt Rate - Afr Amer 108 mL/min (>60); Glucose 91 mg/dL (74-106); Sodium Level 138 mmol/L (136-145)
[2024-06-20 16:31] LABS: Absolute Lymphocyte Count 2.57 X10^3/uL (0.83-4.51); Absolute Neutrophil Count 3.6 X10^3/uL (2.0-7.7); Basophil# 0.04 X10^3/uL; Basophil% 0.6 % (0-1); Eosinophil# 0.28 X10^3/uL; Hematocrit 46.5 % (40-54); Hemoglobin 15.8 g/dL (13.0-16.5); Lymphocyte # 2.57 X10^3/ul (0.83-4.51); Lymphocyte % 36.4 % (19-41); Mean Corpuscular Hgb 33.4 pg (27.0-32.0); Mean Corpuscular Volume 98.3 fL (80-94); Monocyte% 8.5 % (0-10); NRBC Flagged by Analyzer 0 % (0-5); Neutrophil # 3.56 X10^3/uL (2.7-7.7); Neutrophil % 50.4 % (47-70); Platelet Count 179 K/mm3 (150-450); RBC Distribution Width CV 12.7 % (11.6-14.6); RBC Distribution Width SD 45.6 fl (35.1-43.9); Red Blood Count 4.73 M/mm3 (4.6-6.2); White Blood Count 7.1 K/mm3 (4.4-11.0)
[2024-06-20 16:49] LABS: Anion Gap 6 (5-15); BUN 9 mg/dL (7-18); BUN/Creat Ratio 8.3 RATIO (10-20); Calcium,Total 9.6 mg/dL (8.5-10.1); Chloride 101 mmol/L (98-107); Creatinine, Serum 1.08 mg/dL (0.70-1.30); EST Glomerular Filtration Rate 75 mL/min (>60); Est Glom Filt Rate - Afr Amer 91 mL/min (>60); Glucose 116 mg/dL (74-106); Potassium 3.8 mmol/L (3.5-5.1); Sodium Level 139 mmol/L (136-145)
== END 2024-06-20 18:00 | disposition home or self-care (01) ==
LOC: HHLAB 15:49
PROVIDERS: Internal Medicine; PCP Nurse Practitioner Family; Referring Provider Internal Medicine Infectious Disease; Visit Provider Internal Medicine Infectious Disease
DX: L02.511 Cutaneous abscess of right hand (principal); R10.9 Unspecified abdominal pain; K76.0 Fatty (change of) liver, not elsewhere classified
CPT/HCPCS: 80048; 85025; 85027

== ENCOUNTER 2024-06-23 12:14 | Outpatient (CLI) | payer MEDICAID, SELFPAY ==
[2024-06-23 13:06] LABS: Anion Gap 7 (5-15); BUN 9 mg/dL (7-18); BUN/Creat Ratio 9.8 RATIO (10-20); Calcium,Total 9.5 mg/dL (8.5-10.1); Chloride 100 mmol/L (98-107); Creatinine, Serum 0.92 mg/dL (0.70-1.30); EST Glomerular Filtration Rate 90 mL/min (>60); Est Glom Filt Rate - Afr Amer 109 mL/min (>60); Glucose 118 mg/dL (74-106); Potassium 3.7 mmol/L (3.5-5.1); Sodium Level 137 mmol/L (136-145)
== END 2024-06-23 23:59 | disposition home or self-care (01) ==
LOC: LABSPEC 12:16
PROVIDERS: PCP Nurse Practitioner Family; Referring Provider Internal Medicine Infectious Disease; Visit Provider Internal Medicine Infectious Disease
DX: A31.8 Other mycobacterial infections (principal)
CPT/HCPCS: 80048

== ENCOUNTER 2024-06-27 18:07 | Outpatient (CLI) | payer MEDICAID, SELFPAY ==
[2024-06-27 18:22] LABS: Hematocrit 42.5 % (40-54); Hemoglobin 14.6 g/dL (13.0-16.5); Mean Corp Hgb Conc 34.4 g/dL (32-36); Mean Corpuscular Hgb 33.8 pg (27.0-32.0); Mean Corpuscular Volume 98.4 fL (80-94); Mean Platelet Vol. 11.1 fl (6.2-12.0); Platelet Count 142 K/mm3 (150-450); RBC Distribution Width CV 12.8 % (11.6-14.6); RBC Distribution Width SD 46.4 fl (35.1-43.9); Red Blood Count 4.32 M/mm3 (4.6-6.2); White Blood Count 5.7 K/mm3 (4.4-11.0)
[2024-06-27 18:45] LABS: Anion Gap 8 (5-15); BUN 15 mg/dL (7-18); BUN/Creat Ratio 14.9 RATIO (10-20); Calcium,Total 9.3 mg/dL (8.5-10.1); Chloride 103 mmol/L (98-107); Creatinine, Serum 1.01 mg/dL (0.70-1.30); EST Glomerular Filtration Rate 81 mL/min (>60); Est Glom Filt Rate - Afr Amer 98 mL/min (>60); Glucose 145 mg/dL (74-106); Potassium 3.5 mmol/L (3.5-5.1); Sodium Level 139 mmol/L (136-145)
== END 2024-06-27 23:59 | disposition home or self-care (01) ==
PROVIDERS: PCP Nurse Practitioner Family; Referring Provider Internal Medicine Infectious Disease; Visit Provider Internal Medicine Infectious Disease
DX: A31.8 Other mycobacterial infections (principal)
CPT/HCPCS: 80048; 85027

== ENCOUNTER 2024-06-30 12:22 | Outpatient (RCR) | payer MEDICAID, SELFPAY ==
[2024-06-30 13:00] LABS: Anion Gap 5 (5-15); BUN 15 mg/dL (7-18); BUN/Creat Ratio 18.4 RATIO (10-20); Calcium,Total 9.3 mg/dL (8.5-10.1); Chloride 105 mmol/L (98-107); Creatinine, Serum 0.82 mg/dL (0.70-1.30); EST Glomerular Filtration Rate 104 mL/min (>60); Est Glom Filt Rate - Afr Amer 125 mL/min (>60); Glucose 97 mg/dL (74-106); Potassium 3.9 mmol/L (3.5-5.1); Sodium Level 139 mmol/L (136-145)
== END 2024-07-01 23:59 ==
LOC: LABSPEC 12:22
PROVIDERS: PCP Nurse Practitioner Family; Referring Provider Internal Medicine Infectious Disease; Visit Provider Internal Medicine Infectious Disease
CPT/HCPCS: 80048

== ENCOUNTER → 2024-07-13 | Outpatient (CLI) | payer MEDICAID, SELFPAY ==
--- NOTE | 2024-07-13 08:09 | RAD_ITS ---
EXAM: XR Chest, 2 Views CLINICAL INDICATION: TECHNIQUE: Frontal and lateral views of the chest. COMPARISON: No relevant prior studies available. FINDINGS: LUNGS AND PLEURAL SPACES: Unremarkable. No consolidation. No pneumothorax. HEART: Unremarkable. No cardiomegaly. MEDIASTINUM: Unremarkable. Normal mediastinal contour. BONES/JOINTS: Unremarkable. No acute fracture. RAD/Chest PA and Lateral IMPRESSION: No acute cardiopulmonary process. Reading [facility]
--- NOTE | 2024-07-13 08:10 | EKG12_ITS ---
Test Reason : WOUND Blood Pressure : */* mmHG Vent. Rate : 66 BPM Atrial Rate : 66 BPM P-R Int : 128 ms QRS Dur : 162 ms QT Int : 448 ms P-R-T Axes : -4 22 45 degrees QTcB Int : 469 ms Normal sinus rhythm Right bundle branch block Abnormal ECG Confirmed by Dmitriy Preston ([id number]), publishing editor NIKI DE LA O ([id number]) on 07/14/2024 8:00:31 AM Referred By: Sergio Edwards Confirmed By: Dmitriy Preston
== END | disposition home or self-care (01) ==
LOC: PSN 08:05
PROVIDERS: PCP Nurse Practitioner Family; Referring Provider Surgery Plastic and Reconstructive Surgery; Visit Provider Surgery Plastic and Reconstructive Surgery
DX: Z01.818 Encounter for other preprocedural examination (principal); T14.90XA Injury, unspecified, initial encounter; X58.XXXA Exposure to other specified factors, initial encounter; I45.10 Unspecified right bundle-branch block; R94.31 Abnormal electrocardiogram [ECG] [EKG]
CPT/HCPCS: 71046; 93005

== ENCOUNTER 2024-07-25 16:00 | Outpatient (RCR) | payer MEDICAID, SELFPAY ==
[2024-07-02 02:19] VITALS: BP 131/73; PULSE 87; RESP 18; TEMP 36.5; BMI 36.9
[2024-07-04 14:44] VITALS: BP 74/55; PULSE 71; RESP 16; TEMP 36.6; BMI 36.9
--- NOTE | 2024-07-05 07:04 | PN.SURG_ITS ---
Subjective Subjective Patient postop week 4 (02 June 2024) from delayed primary closure surgical wounds of the right hand following treatment of flexor tenosynovitis (Mycobacterium abscessus infection) Patient here for wound check. Reports that infectious disease remove PICC line and placed him on oral antibiotic regimen. He was unable to attend his appointment with me last week. Reports that around this time the flexor tendon became exposed boast and 1 small area adjacent to the A1 bruce of the right long finger on the ulnar side. He has not had any fevers or chills or any purulent drainage or redness and warmth (no signs of an acute infection). Patient was unable to attend occupational therapy. Reports excellent blood sugar control. He is also been consistently decreasing his cigarette intake and smokes around 5 cigarettes now per day (discussed smoking cessation today at our visit). Objective Data Objective Data Vital Signs: Vital Signs Temp Pulse Resp BP O2 Del Method 97.8 F 71 16 74/55 L Room Air 07/04/24 14:44 07/04/24 14:44 07/04/24 14:44 07/04/24 14:44 07/04/24 14:44 Oxygen Delivery Method Room Air Weight: 250 lb Body Mass Index (BMI) 36.9 Physical Exam Narrative RUE: No drainage or induration. No TTP over the palm/carpal tunnel. Incisions are c/d/i and re-epithelialized, except for ulnar side of the rotation flap over the A1 bruce of the long finger where there is a small amount of exposed flexor tendon without any significant granulation on the edges. Integra has incorporated and reepithelialized adjacent to the long finger and the first webspace. No signs of abscess or recurrent infection at this time. Motor: Some stiffness in the long and ring fingers , but bends all MP, PIP, and DIP joints. 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 Long finger ROM: * 70 degrees MP * 90 degrees PIP * 45 degrees DIP Small finger ROM * 65 degrees MP * 65 degrees PIP * 45 degrees DIP Sensation: Intact to light touch on the radial and ulnar borders of all fingers. Const alert and oriented x3 Assessment & Plan Assessment/Plan (1) Open wound, hand: QUALIFIERS: Encounter type: subsequent encounter Open wound type: unspecified Foreign body presence: without foreign body Laterality: right Q ualified Code(s): S61.401D - Unspecified open wound of right hand, subsequent encounter PLAN: I spoke with the patient extensively about smoking cessation. He is going to try to quit completely. I talked to him about moist wound care over the tendon to prevent desiccation (Xeroform twice daily and as needed). We talked about the risks to the long finger with a tendon exposure and concern for colonization of the tendon with bacteria putting the finger/hand at risk. I called the infectious disease doctor, Dr. Levin, and discussed my concerns and the phone today after this visit. We discussed the need for a chronic antibiotic course for suppression while we provide local wound care and attempt smoking cessation. He was in agreement and he will see the patient again soon. He suggested that we keep current antibiotic regimen. I also spoke to the director the wound care center, Dr. Sai Jerez, who has graciously offered to collaborate. He will see Mr. Garibay as well to attempt some local wound care to promote granulation and coverage over the tendon. Given continued failure of delayed primary closure and local flap reconstruction attempts, we should attempt smoking cessation, local wound care, and continued infectious disease consultation/antibiotics at this time. Patient in agreement with the plan. We talked during the visit as well as on the phone following the visit. He was told to call with any questions and we will arrange follow-up later this week with Dr. Jerez and again on Thursday, 11 July 2024, with me. Charges/Coding Procedures Integumentary [id number]: [id number] Global Visit
--- NOTE | 2024-07-05 12:18 | WC ---
PHOTO 07/04/24 RIGHT HAND
[2024-07-08 13:01] VITALS: BP 139/68; PULSE 72; RESP 18; TEMP 36.2; BMI 36.9
--- NOTE | 2024-07-08 14:03 | PCM.WC.HP ---
History of Present Illness Date of Service: 07/08/24 Chief Complaint: Septic flexor tenosynovitis of the right long finger, with residual dehiscent wound at the base of the right long finger History of Wound: This is a 58-year-old diabetic male smoker who presented on March 06, 2024, with acute septic tenosynovitis of the right long finger. He underwent incision and drainage of the septic right long finger tendon sheath and PIP joint, and was managed on an inpatient basis until discharge on March 15, 2024. During that hospital stay, the patient underwent 2 additional surgical procedures related to his tendon sheath infection. Since that discharge, the patient has undergone 7 additional surgical interventions, which have included sharp excision of necrotic tissue, washouts, tissue transfers, drainage of abscesses, placement of cellular tissue products, and secondary closure of surgical wounds. The most recent surgical procedure was on June 02, 2024, at which time debridement and washout of the right long finger, palm, and webspace was performed with secondary closure of surgical wounds. Integra was also placed to the index and long finger webspace. The patient's management has occurred by both inpatient and outpatient means. The patient has progressed, and all but one of his surgical incisions has healed. An open wound persists on the ulnar aspect at the base of the right long finger, near the metacarpophalangeal joint. The wound is small, and dimensions are documented elsewhere. It is approximately 2 to 3 mm in width, though it extends approximately 7 mm to exposed flexor tendon. The Infectious Disease service has been involved throughout most of the patient's management. Both Dr. Levin and Dr. Francisco have been involved in the patient's care. Though no growth has been noted in the most recent cultures on May 31, 2024, and June 02, 2024, earlier cultures were positive for acid-fast bacilli. As a result, the patient remains on linezolid 600 mg p.o. daily and azithromycin 500 mg daily. The patient is diabetic. He states that his blood sugars are typically well-controlled, ranging between 90 and 136. Diabetes management is overseen by Viola Gunderson, a Nurse Practitioner at the [facility]. The patient claims to consume a generally healthy diet, having recently excluded sugary drinks from his diet, and increasing his protein intake with the use of protein replacement drinks. The patient's serum protein was 5.8 when checked on May 31, 2024. He has been a 6-sqnk-fsm-day smoker for many years, but has recently reduced his smoking habit to 5 cigarettes/day. Early in the patient's course, he had been advised to perform hand soaks, using Dial soap and water, 3 times daily. However, he is not currently implementing soaks into his regimen. Current treatment involves the use of Xeroform packing changes twice daily. [facility] Medical History (Updated 07/08/24 @ 16:[address] Sai Jerez MD) Hand abscess Dehiscence of surgical wound Tobacco abuse Tobacco abuse counseling Flexor tenosynovitis of finger Suppurative tenosynovitis of flexor tendon of right hand Obstructive sleep apnea History of CVA (cerebrovascular accident) Open wound, hand Obesity (BMI 30-39.9) Type II diabetes mellitus Infected hand Insulin dependent diabetes mellitus Arthritis Kidney stone TIA (transient ischemic attack) Seizures Gastric reflux Hypertension History of CVA in adulthood Antiplatelet or antithrombotic long-term use Wears glasses No natural teeth Diabetes Thyroid disease High cholesterol Blackout History of GI bleed Smoker BiPAP (biphasic positive airway pressure) dependence Sleep apnea Shortness of breath on exertion Chronic cough History of edema Leg cramps History of stress test Cardiology follow-up encounter Elevated LFTs Back pain Dorsalgia of thoracolumbar region Patellofemoral arthritis of right knee Bilateral knee pain Situational syncope Chest pain, unspecified Type 2 diabetes mellitus Essential hypertension Pneumonia due to other streptococci Atherosclerosis of coronary artery of [place] heart without angina pectoris Right bundle-branch block Gastroesophageal reflux disease Hypertriglyceridemia Body mass index (BMI) 35 or more COPD (chronic obstructive pulmonary disease) MASON (dyspnea on exertion) Morbid obesity due to excess calories Localized edema Long-term use of high-risk medication Hyperlipidemia Difficulty swallowing Stage 2 moderate COPD by GOLD classification Sinus drainage Home Medications ?Medication ?Instructions ?Recorded ?Last Taken ?Type albuterol sulfate 90 mcg/actuation 6.7 g inhalation PRN PRN Wheezing 12/06/14 05/04/24 History aerosol inhaler ergocalciferol (vitamin D2) 1,250 50,000 unit PO Q7D SUPPLEMENT 12/06/14 05/04/24 History mcg (50,000 unit) capsule fluticasone propionate 50 1 spray NASAL DAILY ALLERGIES 05/05/16 04/10/24 History mcg/actuation nasal spray,suspension aspirin 81 mg tablet,delayed 81 mg PO DAILY HEART 08/11/19 05/04/24 History release duloxetine 60 mg capsule,delayed 60 mg PO DAILY MOOD 08/11/19 05/04/24 History release levothyroxine 50 mcg tablet 75 mcg PO DAILY THYROID 08/11/19 05/05/24 History losartan 50 mg tablet 25 mg PO QDAY BLOOD PRESSURE 08/11/19 05/04/24 History mirtazapine 15 mg tablet 45 mg PO QHS SLEEP AND RLS 08/11/19 05/04/24 History multivitamin 1 cap PO DAILY SUPPLEMENT 08/11/19 05/04/24 History nitroglycerin 0.4 mg sublingual 0.4 mg sublingual ONCE PRN chest 08/11/19 Unknown History tablet (Nitrostat) pain budesonide-formoterol HFA 160 2 puff inhalation BID COPD #10.2 12/05/19 05/04/24 Rx mcg-4.5 mcg/actuation aerosol grams inhaler clopidogrel 75 mg tablet 75 mg PO QDAY BLOOD THINNER #90 12/29/19 05/04/24 Rx tabs furosemide 40 mg tablet (Lasix) 60 mg PO DAILY WATER PILL 11/15/20 05/04/24 History metformin 1,000 mg tablet 1,000 mg PO BID DIABETES 11/15/20 05/04/24 History isosorbide mononitrate 60 mg 30 mg (1/2 x 60 mg) PO BID HEART 12/03/21 05/05/24 Rx tablet,extended release 24 hr #90 tabs omeprazole 40 mg capsule,delayed 40 mg PO DAILY GERD 1 month #30 06/05/23 05/05/24 Rx release caps rosuvastatin 20 mg tablet 20 mg PO QHS CHOLESTEROL 1 month 06/05/23 05/04/24 Rx #30 tabs empagliflozin 25 mg tablet 25 mg PO DAILY DAIBETES #30 tabs 11/24/23 05/04/24 Rx (Jardiance) fluticasone fur. 100 mcg-umeclid 1 ea inhalation DAILY copd 03/07/24 05/05/24 History 62.5 mcg-vilant 25 mcg inhalat.powder (Trelegy Ellipta) gabapentin 800 mg tablet 800 mg PO TID pain 03/07/24 05/04/24 History dulaglutide 1.5 mg/0.5 mL 1.5 mg subcut MENON DIABETES 03/22/24 04/24/24 History subcutaneous pen injector (Trulicity) Allergy/AdvReac Type Severity Reaction Status Date / Time No Known Allergies Allergy Verified 05/19/24 09:02 Family History Father CVA (cerebral vascular accident) Brother CAD (coronary artery disease) Diabetes Mother COPD (chronic obstructive pulmonary disease) Sarcoidosis Surgical History H/O umbilical hernia repair History of hand surgery History of cardiac catheterization S/P laparoscopic cholecystectomy History of coronary artery stent placement (~03/25/16) History of carpal tunnel surgery of right wrist History of left heart catheterization Social History household members: spouse current occupational status: disabled Smoking Status: Light Smoker (<10/day) Tobacco: How many years used: 30 second hand exposure: Yes alcohol intake: never substance use type: does not use caffeine: Yes Type: coffee Number of servings: 2 what type of physical activity do you participate in: none Vital Signs Vital Signs Vital Signs: 07/08/24 13:01 Temperature 97.1 F L Temperature Source Temporal Pulse Rate 72 Respiratory Rate 18 Blood Pressure 139/68 H Blood Pressure Mean 91 Blood Pressure Source Monitor Blood Pressure Position Semi-Fowlers Blood Pressure Location Left Arm Weight Weight: 250 lb Body Mass Index (BMI) 36.9 Physical Exam Const alert, oriented x3, no apparent distress, no limitations and healthy appearing Constitutional Narrative: The patient's BMI is 36.9. General Appearance: cooperative, comfortable and well developed Orientation / Consciousness: awake, oriented to person, oriented to place and oriented to time Exam Limitations: no limitations HEENT normocephalic and head/scalp atraumatic Head and Scalp: normal to inspection, normocephalic and atraumatic Nose: external nose normal External Ear: external ears normal Eyes EOMs intact bilaterally General Eye: normal appearance of both eyes Resp normal respiratory effort, normal air movement, no retractions and no use of accessory muscles Effort and Inspection: able to speak in complete sentences Extremity no calf tenderness General Extremity: Negative for clubbing or cyanosis Skin Wound Narrative: Several well-healed surgical scars are noted on the volar aspect of the patient's right hand. A small dehiscent surgical wound is noted on the ulnar aspect of the right long finger at its base at the level of the metacarpophalangeal joint. The wound is approximately 3 mm in diameter, with depth that extends down to an exposed flexor tendon. Dimensions are documented elsewhere. There is no evidence of infection or cellulitis. There is no drainage or odor. The exposed tendon appears to be intact and freely movable. A small amount of bioburden and nonviable tissue is noted at the margins of the open wound. Sensation appears to be generally intact. There appears to be mild flexion and extension limitation of motion involving the right long finger and small finger. Neuro oriented x3, CN's II-XII intact bilaterally, moves all extremities and no sensory deficits noted Sensorium / Orientation: awake, alert, oriented to person, oriented to place and oriented to time Speech: speech normal Psych Appearance: grossly normal and appropriate Attitude: calm Activity / Motor Behavior: appropriate eye contact Speech: normal speech Mood & Affect: euthymic mood Thought Process: normal thought process Thought Content: normal thought content Attention / Concentration: attention grossly intact Debridement Note Debridement Note Wound debrided: Dehiscent open wound of the right hand Laterality: Right Type of Debridement: Excisional debridement Anesthesia Used: 5% Lidocaine Gel Depth: Down to and including healthy tissue and in the subcutaneous layer Percentage of wound debrided: 100 Instrument Used: 3mm curette and Forceps Tissue Removed: Bioburden and nonviable tissue Severity: Fat Layer Exposed Amount of bleeding with debridement: None Patient tolerated procedure: Patient tolerated procedure well Debridement Free Text: The wound is located at the base of the right long finger, at the level of the metacarpophalangeal joint, and on the ulnar side. The tendon is clearly visible at the base of the wound, and freely mobile. The wound margins demonstrated the presence of a small amount of nonviable tissue and bioburden. This was removed during the debridement. Post-Debridement Measurements and Additional Note: Post-Debridement Measurements/Treatment TRA - Nurse 1 - General Ulcer Assessment Start: 07/04/24 14:43 Freq: Status: Active Protocol: WAYLON Activity Type Activity Date Activity User E-sign Co-sign Detail Recorded Client Recorded Date Recorded By Document 07/04/24 14:44 KW [id number] 07/04/24 14:51 KW Document 07/08/24 13:01 RB [id number] 07/08/24 13:04 RB 07/04/24 07/08/24 14:44 13:01 - Today's Visit Information Type of service Follow-up Visit Follow-up Visit (Physician/PAINT STOCK CLERK (Physician/PAINT STOCK CLERK ) ) Arrival Mode Ambulatory Ambulatory Transfer Assistance None Patient Identification Verified (Name & Yes Yes ) Patient Requires Transmission-Based No Precautions Height and Weight Body Mass Index (BMI) 36.9 36.9 BMI Classification Obese Obese Vital Signs Temperature (97.8 F-99.1 F) 97.8 F 97.1 F L Temperature Source Temporal Temporal Pulse Rate (60-100) 71 72 Pulse Location Monitor Monitor Respiratory Rate (12-18) 16 18 Respiratory rate source Observation Observation Oxygen Delivery Method Room Air Blood Pressure (90/60-120/80) 74/55 L 139/68 H Blood Pressure Mean 61 91 Source Monitor Monitor Position Semi-Fowlers Semi-Fowlers Blood Pressure Location Left Arm Left Arm History Since Last Visit- (Skip if this is Patient's initial visit) Have you changed medications since your No No last visit? Any new allergies or adverse reactions No No Had a fall/change in ADL's that may No No increase risk of falls Signs or symptoms of abuse and/or No No neglect since last visit Have you been in the hospital since your No No last visit? Has dressing in place as prescribed Yes Yes Has compression in place as prescribed Yes N/A Has offloadiing in place as prescribed N/A N/A Experienced any changes in pain level or No No management Left Footwear Regular Shoe Right Footwear Regular Shoe Pain Scale: 0-10 Numeric Is Patient Pain Free? Yes Yes - Nurse 1 - General Ulcer Measurement Start: 07/04/24 14:43 Freq: Status: Active Protocol: Activity Type Activity Date Activity User E-sign Co-sign Detail Recorded Client Recorded Date Recorded By Document 07/04/24 14:44 KW [id number] 07/04/24 14:51 KW Document 07/08/24 13:01 RB [id number] 07/08/24 13:04 RB Edit Result 07/08/24 13:01 RB (1) [id number] 07/08/24 13:05 RB (1) 6 rt hand post op - Structure Exposed N/A => Tendon - Moisture (Carolyn-wound Skin Appearance) Assessed => Assessed, => Maceration 07/04/24 07/08/24 14:44 13:01 Wound Center Nurse 1 5 webbing between 1st and second digit -Current Size (cm) - Length 0.1 -Current Size (cm) - Width 0.1 -Current Size (cm) - Depth 0 -Total Square Cm 0.01 -Epithelialization Large 67-100% -Exudate Amt None Present -Texture (Carolyn-wound Skin Appearance) Assessed -Moisture (Carolyn-wound Skin Appearance) Assessed -Color (Carolyn-wound Skin Appearance) Assessed -Temperature (Carolyn-wound Skin No Abnormality Appearance) (Pt Warm) -Tenderness on Palpation (Carolyn-wound No Skin Appearance) -Ulcer Cleansing Rinsed/ Irrigated with Saline -Foul Odor after Cleansing No -Wound Comment(s) poss. healed 6 rt hand post op -Combined with other wound No -Current Size (cm) - Length 0.1 0.2 -Current Size (cm) - Width 0.3 0.2 -Current Size (cm) - Depth 0.1 0.7 -Total Square Cm 0.03 0.04 -Photo Taken Yes -Epithelialization Large 67-100% -Tunneling No -Undermining/Tunneling No -Circular Undermining No -Exudate Amt Small Medium -Exudate Type Serosanguineous Serosanguineous -Wound Margin Distinct, Distinct, Outline Outline Attached Attached -Granulation Amt Small (1-33%) Medium (34-66%) -Granulation Quality [place] -Slough/Fibrin Yes -Necrosis Amt Small (1-33%) -Necrotic Tissue Type Adherent Slough -Structure Exposed Tendon -Texture (Carolyn-wound Skin Appearance) Assessed Assessed, Scarring -Moisture (Carolyn-wound Skin Appearance) Assessed, Assessed, Maceration Maceration -Color (Carolyn-wound Skin Appearance) Assessed Assessed -Temperature (Carolyn-wound Skin No Abnormality No Abnormality Appearance) (Pt Warm) (Pt Warm) -Tenderness on Palpation (Carolyn-wound No No Skin Appearance) -Ulcer Cleansing Rinsed/ Wound Cleanser Irrigated with Saline -Foul Odor after Cleansing No No -Anesthetic Used 5% Lidocaine 5% Lidocaine Gel Gel WC - Nurse 2 - General Ulcer CM Notes Start: 07/04/24 14:43 Freq: Status: Active Protocol: Activity Type Activity Date Activity User E-sign Co-sign Detail Recorded Client Recorded Date Recorded By Document 07/04/24 15:24 JF [id number] 07/04/24 15:30 Document 07/08/24 13:20 [facility] [id number] 07/08/24 13:41 [facility] 07/04/24 07/08/24 15:24 13:20 Wound Center Nurse 2 5 webbing between 1st and second digit -Correct Patient No -Correct Side, Site, Position No -Correct Procedure No -Procedure Performed No -Post Debridement (cm) - Length 0 -Post Debridement (cm) - Width 0 -Post Debridement (cm) - Depth 0 -Total Square (Post) (cm) 0 -Area of Debridement (cm) - Length 0 -Area of Debridement (cm) - Width 0 -Total Square (Area) (cm) 0 -Wound/Ulcer Outcome Healed- Epithelialized 6 rt hand post op -Time 13:21 -Correct Patient No Yes -Correct Side, Site, Position No Yes -Correct Procedure No Yes -Procedure Performed No Yes -Type of Procedure Debridement -Clinical Debridement Subcutaneous -Tissue Removed Subcutaneous -Post Debridement (cm) - Length 0.3 -Post Debridement (cm) - Width 0.2 -Post Debridement (cm) - Depth 0.2 -Total Square (Post) (cm) 0.06 -Area of Debridement (cm) - Length 0.3 -Area of Debridement (cm) - Width 0.2 -Total Square (Area) (cm) 0.06 -Tunneling No -Undermining/Tunneling No -Circular Undermining No -Wound/Ulcer Outcome Not Healed Not Healed -Ulcer Cleansing Rinsed/ Irrigated with Saline -Foul Odor after Cleansing No -Bioengineered Tissue No -Bleeding Controlled with Pressure Pressure -Treatment Response Procedure Procedure Tolerated Well Tolerated Well -Offloading No -Debridement - Subq, 1st 20sq cm Yes Pain Scale: 0-10 Numeric Is Patient Pain Free? Yes Yes WC - Nurse 3 - General Ulcer D/C NN Start: 07/04/24 14:43 Freq: Status: Active Protocol: Activity Type Activity Date Activity User E-sign Co-sign Detail Recorded Client Recorded Date Recorded By Document 07/04/24 15:47 KW [id number] 07/04/24 15:48 KW Document 07/08/24 13:48 KW [id number] 07/08/24 13:50 KW 07/04/24 07/08/24 15:47 13:48 Wound Care Center Nurse 3 6 rt hand post op -Ulcer Cleansing Soap and Water -Primary Dressing Applied Other Other -Other Dressing xeroform XEROFORM -Primary Dressing Covered/Secured with Dry Gauze,Dry Dry Gauze & Gauze & Roll Roll Gauze, Gauze,Secured Secured with with Tape Tape R HAND -Compression Wrap Zachery Wrap Pain Scale: 0-10 Numeric Is Patient Pain Free? Yes Yes WC - Visit Discharge Discharge Condition Stable Stable Ambulatory Status Ambulatory Ambulatory Transportation Private Auto Private Auto Medication Reconcilliation completed & No No provided to patient/care provider Clinical Summary of Care Provided Yes Yes Lab / Micro Data Labs: Laboratory Tests 07/08/24 14:18 WBC 5.4 Hgb 15.1 Hct 43.6 Plt Count 146 L Sodium 141 Potassium 3.9 Chloride 106 Carbon Dioxide 25.0 BUN 9 Creatinine 0.85 Glucose 123 H Calcium 8.8 Total Protein 6.7 Charges/Coding Multi Select Codes Visit Charges Office Visit/Consults: 31165 OV L4 New 45 min Integumentary Integumentary CPT Codes: 97643 Opal subq tissue 20 sq cm/< Assessment/Plan Assessment/Plan (1) Suppurative tenosynovitis of flexor tendon of right hand: CODE(S): M65.141 - Other infective (teno)synovitis, right hand (2) Flexor tenosynovitis of finger: CODE(S): M65.949 - Unspecified synovitis and tenosynovitis, unspecified hand (3) Infected hand: CODE(S): L08.9 - Local infection of the skin and subcutaneous tissue, unspecified (4) Dehiscence of surgical wound: CODE(S): T81.31XA - Disruption of external operation (surgical) wound, not elsewhere classified, initial encounter QUALIFIERS: Encounter type: initial encounter Qualified Code(s): T81.31XA - Disruption of external operation (surgical) wound, not elsewhere classified, initial encounter (5) Open wound, hand: CODE(S): S61.409A - Unspecified open wound of unspecified hand, initial encounter QUALIFIERS: Encounter type: initial encounter Open wound type: unspecified Foreign body presence: without foreign body Laterality: right Qualified Code(s): S61.401A - Unspecified open wound of right hand, initial encounter (6) Septic arthritis of interphalangeal joint of finger of right hand: CODE(S): M00.9 - Pyogenic arthritis, unspecified (7) Type 2 diabetes mellitus: CODE(S): E11.9 - Type 2 diabetes mellitus without complications (8) Tobacco abuse: CODE(S): Z72.0 - Tobacco use (9) Tobacco abuse counseling: CODE(S): Z71.6 - Tobacco abuse counseling (10) History of CVA (cerebrovascular accident): CODE(S): Z86.73 - Personal history of transient ischemic attack (TIA), and cerebral infarction without residual deficits (11) NAFLD (nonalcoholic fatty liver disease): CODE(S): K76.0 - Fatty (change of) liver, not elsewhere classified (12) Essential hypertension: CODE(S): I10 - Essential (primary) hypertension (13) History of coronary artery stent placement: CODE(S): Z95.5 - Presence of coronary angioplasty implant and graft (14) Atherosclerosis of coronary artery of [place] heart without angina pectoris: CODE(S): I25.10 - Atherosclerotic heart disease of [place] coronary artery without angina pectoris (15) Right bundle-branch block: CODE(S): I45.10 - Unspecified right bundle-branch block (16) Gastroesophageal reflux disease: CODE(S): K21.9 - Gastro-esophageal reflux disease without esophagitis (17) Hypertriglyceridemia: CODE(S): E78.1 - Pure hyperglyceridemia (18) COPD (chronic obstructive pulmonary disease): CODE(S): J44.9 - Chronic obstructive pulmonary disease, unspecified QUALIFIERS: COPD type: unspecified COPD Qualified Code(s): J44.9 - Chronic obstructive pulmonary disease, unspecified (19) MASON (dyspnea on exertion): CODE(S): R06.09 - Other forms of dyspnea (20) Hyperlipidemia: CODE(S): E78.5 - Hyperlipidemia, unspecified QUALIFIERS: Hyperlipidemia type: unspecified Qualified Code(s): E78.5 - Hyperlipidemia, unspecified (21) Stage 2 moderate COPD by GOLD classification: CODE(S): J44.9 - Chronic obstructive pulmonary disease, unspecified (22) Thyroid disease: CODE(S): E07.9 - Disorder of thyroid, unspecified (23) History of GI bleed: CODE(S): Z87.19 - Personal history of other diseases of the digestive system (24) BiPAP (biphasic positive airway pressure) dependence: CODE(S): Z99.89 - Dependence on other enabling machines and devices (25) Sleep apnea: CODE(S): G47.30 - Sleep apnea, unspecified (26) Obstructive sleep apnea: CODE(S): G47.33 - Obstructive sleep apnea (adult) (pediatric) (27) S/P laparoscopic cholecystectomy: CODE(S): Z90.49 - Acquired absence of other specified parts of digestive tract (28) H/O umbilical hernia repair: CODE(S): Z98.890 - Other specified postprocedural states; Z87.19 - Personal history of other diseases of the digestive system PLAN: Plan This is a 58-year-old diabetic male smoker who is a patient of Dr. Sergio Edwards, Plastic Surgeon. He initially presented on March 06, 2024, with septic tenosynovitis of the right long finger. He underwent surgical drainage of his right long finger infection on the day of presentation, and has undergone a number of surgical interventions since that time. All but one of his surgical incisions have healed, and the remaining open surgical wound is located on the ulnar aspect at the base of the right long finger. Current management involves the use of Xeroform packing on a twice daily basis. Xeroform packing changes will continue, and will help maintain a moist wound environment and will conform to the contours of the patient's wound. The presence of bismuth tribromophenate provides a bacteriostatic property. The appropriate means of application has been demonstrated to the patient. The patient is to remain under the care of Dr. Edwards, and has his next appointment on Thursday, July 11, 2024. The patient has been a chronic 2 pack/day cigarette smoker, but has decreased his tobacco use to 5 cigarettes/day. A discussion has been undertaken with the patient as to the adverse effects of smoking, and he has been urged to quit completely. Collaboration with his primary care provider in this regard has been recommended. The patient has been advised to optimize his nutritional intake. He indicates that he is attempting to do so, and is using a protein drink on a daily basis at the current time. A total serum protein result from today indicates that his total protein is 6.7, which is significantly improved from prior results. The patient has also been advised to optimize his glycemic control, and to collaborate with his primary care provider in this regard. A hemoglobin A1c has been ordered with lab work today, and is pending. Antibiotic management will be deferred to the Infectious Disease service, and it is noted that he remains on linezolid 600 mg p.o. daily and azithromycin 500 mg p.o. daily for cultures which were recently positive for Mycobacterium. The patient is currently not using soaks for his hand wound, which do not appear to play a role in current management. Options with regard to subsequent management will be discussed with Dr. Edwards. Tissue flap reconstruction is an option, though the use of a cellular tissue product may also be a reasonable approach. Serial debridements also appear warranted. Total time: 45 minutes
[2024-07-08 14:33] LABS: Absolute Lymphocyte Count 1.94 X10^3/uL (0.83-4.51); Absolute Neutrophil Count 2.9 X10^3/uL (2.0-7.7); Basophil# 0.03 X10^3/uL; Basophil% 0.6 % (0-1); Eosinophil# 0.14 X10^3/uL; Eosinophils% 2.6 % (0-5); Hematocrit 43.6 % (40-54); Hemoglobin 15.1 g/dL (13.0-16.5); Lymphocyte # 1.94 X10^3/ul (0.83-4.51); Lymphocyte % 35.8 % (19-41); Mean Corp Hgb Conc 34.6 g/dL (32-36); Mean Corpuscular Hgb 33.7 pg (27.0-32.0); Mean Corpuscular Volume 97.3 fL (80-94); Mean Platelet Vol. 10.3 fl (6.2-12.0); Monocyte% 7.4 % (0-10); NRBC Flagged by Analyzer 0 % (0-5); Neutrophil # 2.89 X10^3/uL (2.7-7.7); Neutrophil % 53.2 % (47-70); Platelet Count 146 K/mm3 (150-450); RBC Distribution Width CV 12.9 % (11.6-14.6); RBC Distribution Width SD 46.2 fl (35.1-43.9); Red Blood Count 4.48 M/mm3 (4.6-6.2); White Blood Count 5.4 K/mm3 (4.4-11.0)
[2024-07-08 15:25] LABS: ALB/GLOB Ratio 1.3 RATIO (0.9-2.4); Anion Gap 10 (5-15); BUN 9 mg/dL (7-18); BUN/Creat Ratio 10.6 RATIO (10-20); Calcium,Total 8.8 mg/dL (8.5-10.1); Chloride 106 mmol/L (98-107); Creatinine, Serum 0.85 mg/dL (0.70-1.30); EST Glomerular Filtration Rate 98 mL/min (>60); Est Glom Filt Rate - Afr Amer 119 mL/min (>60); Estimated Creatinine Clearance 119.05 ml/min; Globulin 2.9 g/dL (2.2-4.2); Glucose 123 mg/dL (74-106); Potassium 3.9 mmol/L (3.5-5.1); Protein, Total 6.7 g/dL (6.4-8.2); Sodium Level 141 mmol/L (136-145)
[2024-07-10 17:54] LABS: Hemoglobin A1c 5.8 % (3.8-5.6)
[2024-07-11 14:02] VITALS: BP 140/109; PULSE 76; RESP 18; TEMP 36.7; BMI 36.9
--- NOTE | 2024-07-11 15:54 | PN.PCM_ITS ---
History of Present Illness Date of Service: 07/11/24 Chief Complaint: Septic flexor tenosynovitis of the right long finger, with residual dehiscent wound at the base of the right long finger History of Wound: Wound Care Center HPI/Summary (Dr. Jerez, 08 Jul 2024) This is a 58-year-old diabetic male smoker who presented on March 06, 2024, with acute septic tenosynovitis of the right long finger. He underwent incision and drainage of the septic right long finger tendon sheath and PIP joint, and was managed on an inpatient basis until discharge on March 15, 2024. During that hospital stay, the patient underwent 2 additional surgical procedures related to his tendon sheath infection. Since that discharge, the patient has undergone 7 additional surgical interventions, which have included sharp excision of necrotic tissue, washouts, tissue transfers, drainage of abscesses, placement of cellular tissue products, and secondary closure of surgical wounds. The most recent surgical procedure was on June 02, 2024, at which time debridement and washout of the right long finger, palm, and webspace was performed with secondary closure of surgical wounds. Integra was also placed to the index and long finger webspace. The patient's management has occurred by both inpatient and outpatient means. The patient has progressed, and all but one of his surgical incisions has healed. An open wound persists on the ulnar aspect at the base of the right long finger, near the metacarpophalangeal joint. The wound is small, and dimensions are documented elsewhere. It is approximately 2 to 3 mm in width, though it extends approximately 7 mm to exposed flexor tendon. The Infectious Disease service has been involved throughout most of the patient's management. Both Dr. Levin and Dr. Francisco have been involved in the patient's care. Though no growth has been noted in the most recent cultures on May 31, 2024, and June 02, 2024, earlier cultures were positive for acid-fast bacilli. As a result, the patient remains on linezolid 600 mg p.o. daily and azithromycin 500 mg daily. The patient is diabetic. He states that his blood sugars are typically well- controlled, ranging between 90 and 136. Diabetes management is overseen by Viola Gunderson, a Nurse Practitioner at the [facility]. The patient claims to consume a generally healthy diet, having recently excluded sugary drinks from his diet, and increasing his protein intake with the use of protein replacement drinks. The patient's serum protein was 5.8 when checked on May 31, 2024. He has been a 0-zowv-wej-day smoker for many years, but has recently reduced his smoking habit to 5 cigarettes/day. Early in the patient's course, he had been advised to perform hand soaks, using Dial soap and water, 3 times daily. However, he is not currently implementing soaks into his regimen. Current treatment involves the use of Xeroform packing changes twice daily. Subjective Subjective 05 Jul 2024: Patient postop week 4 (02 June 2024) from delayed primary closure surgical wounds of the right hand following treatment of flexor tenosynovitis (Mycobacterium abscessus infection). Patient here for wound check. Reports that infectious disease remove PICC line and placed him on oral antibiotic regimen. He was unable to attend his appointment with me last week. Reports that around this time the flexor tendon became exposed boast and 1 small area adjacent to the A1 bruce of the right long finger on the ulnar side. He has not had any fevers or chills or any purulent drainage or redness and warmth (no signs of an acute infection).Patient was unable to attend occupational therapy. Reports excellent blood sugar control. He is also been consistently decreasing his cigarette intake and smokes around 5 cigarettes now per day (discussed smoking cessation today at our visit). 11 Jul 2024: Patient doing well overall. He recently saw Dr. Sai Jerez, director of our wound care center, this past Thursday, 09 July 2024, for second opinion to help me with Mr. Garibay's care (appreciate collaboration). He recommended continued tight glucose control, improved protein intake, complete tobacco cessation, and recommended that we try a product called Axiofill (received free sample from company), which would help promote granulation tissue in the wound bed. I read about the product and discussed with the patient the risks, benefits, and alternatives. He agreed to proceed with the Axiofill placement. Objective Data Objective Data Vital Signs: Vital Signs Temp Pulse Resp BP O2 Del Method 98.1 F 76 18 140/109 H Room Air 07/11/24 14:02 07/11/24 14:02 07/11/24 14:02 07/11/24 14:07/04/24 14:44 Oxygen Delivery Method Room Air Weight: 250 lb Body Mass Index (BMI) 36.9 Lab / Micro Data 07/08/24 14:18 07/08/24 14:18 Labs: Laboratory Results - last 24 hr 07/08/24 14:18: Hemoglobin A1c 5.8 H Charges/Coding Procedures Integumentary 111xxx-113xx: [id number] Global Visit Physical Exam Narrative RUE: No drainage or induration. No TTP over the palm/carpal tunnel. Incisions are c/d/i and re-epithelialized, except for ulnar side of the rotation flap over the A1 bruce of the long finger where there is a small amount of exposed flexor tendon with more granulation tissue today. Integra has incorporated and reepithelialized adjacent to the long finger and the first webspace. No signs of abscess or recurrent infection at this time. Motor: Some stiffness in the long and ring fingers , but bends all MP, PIP, and DIP joints. Good overall debridging machine operator strength. Long finger ROM: * 70 degrees MP * 90 degrees PIP * 45 degrees DIP Small finger ROM * 65 degrees MP * 65 degrees PIP * 45 degrees DIP Sensation: Intact to light touch on the radial and ulnar borders of all fingers. Const alert and oriented x3 Debridement Note Debridement Note Wound debrided: Right volar hand Laterality: Right Wound Grade/Stage: 3 Type of Debridement: Excisional debridement Anesthesia Used: 4% Lidocaine Solution Depth: in the subcutaneous layer Percentage of wound debrided: 100 Instrument Used: 3mm curette Severity: Fat Layer Exposed (With flexor tendon to the long finger exposed on the ulnar side of the rotation flap) Amount of bleeding with debridement: Mild Bleeding Controlled with: Compression and gauze Patient tolerated procedure: Patient tolerated procedure well Debridement Free Text: Following the debridement with a curette, 1 cc of the powdered Axiofill was applied with saline over the powder. The expiration date is January 30, 2029. [id number]. [id number] Rev1. Post-Debridement Measurements and Additional Note: Post-Debridement Measurements/Treatment WC - Nurse 1 - General Ulcer Assessment Start: 07/04/24 14:43 Freq: Status: Active Protocol: TRA.ZOHRAEXAtif Activity Type Activity Date Activity User E-sign Co-sign Detail Recorded Client Recorded Date Recorded By Document 07/04/24 14:44 KW [id number] 07/04/24 14:51 KW Document 07/08/24 13:01 RB [id number] 07/08/24 13:04 RB Document 07/11/24 14:02 DL [id number] 07/11/24 14:08 DL 07/04/24 07/08/24 07/11/24 14:44 13:01 14:02 WC - Today's Visit Information Type of service Follow-up Visit Follow-up Visit Follow-up Visit (Physician/DAIRY FARM MANAGER (Physician/DAIRY FARM MANAGER (Physician/DAIRY FARM MANAGER ) ) ) Arrival Mode Ambulatory Ambulatory Ambulatory Transfer Assistance None None Patient Identification Verified (Name & Yes Yes Yes ) Patient Requires Transmission-Based No No Precautions Height and Weight Body Mass Index (BMI) 36.9 36.9 36.9 BMI Classification Obese Obese Obese Vital Signs Temperature (97.8 F-99.1 F) 97.8 F 97.1 F L 98.1 F Temperature Source Temporal Temporal Temporal Pulse Rate (60-100) 71 72 76 Pulse Location Monitor Monitor Monitor Respiratory Rate (12-18) 16 18 18 Respiratory rate source Observation Observation Observation Oxygen Delivery Method Room Air Blood Pressure (90/60-120/80) 74/55 L 139/68 H 140/109 H Blood Pressure Mean (mm Hg) 61 91 119 Source Monitor Monitor Monitor Position Semi-Fowlers Semi-Fowlers Blood Pressure Location Left Arm Left Arm History Since Last Visit- (Skip if this is Patient's initial visit) Have you changed medications since your No No No last visit? Any new allergies or adverse reactions No No No Had a fall/change in ADL's that may No No No increase risk of falls Signs or symptoms of abuse and/or No No No neglect since last visit Have you been in the hospital since your No No No last visit? Has dressing in place as prescribed Yes Yes Yes Has compression in place as prescribed Yes N/A N/A Has offloadiing in place as prescribed N/A N/A Yes Experienced any changes in pain level or No No No management Left Footwear Regular Shoe Right Footwear Regular Shoe Pain Scale: 0-10 Numeric Is Patient Pain Free? Yes Yes Yes - Nurse 1 - General Ulcer Measurement Start: 07/04/24 14:43 Freq: Status: Active Protocol: Activity Type Activity Date Activity User E-sign Co-sign Detail Recorded Client Recorded Date Recorded By Document 07/04/24 14:44 KW [id number] 07/04/24 14:51 KW Document 07/08/24 13:01 RB [id number] 07/08/24 13:04 RB Edit Result 07/08/24 13:01 RB (1) [id number] 07/08/24 13:05 RB Document 07/11/24 14:02 DL [id number] 07/11/24 14:08 DL (1) 6 rt hand post op - Structure Exposed N/A => Tendon - Moisture (Carolyn-wound Skin Appearance) Assessed => Assessed, => Maceration 07/04/24 07/08/24 07/11/24 14:44 13:01 14:02 Wound Center Nurse 1 5 webbing between 1st and second digit -Current Size (cm) - Length 0.1 -Current Size (cm) - Width 0.1 -Current Size (cm) - Depth 0 -Total Square Cm 0.01 -Epithelialization Large 67-100% -Exudate Amt None Present -Texture (Carolyn-wound Skin Appearance) Assessed -Moisture (Carolyn-wound Skin Appearance) Assessed -Color (Carolyn-wound Skin Appearance) Assessed -Temperature (Carolyn-wound Skin No Abnormality Appearance) (Pt Warm) -Tenderness on Palpation (Carolyn-wound No Skin Appearance) -Ulcer Cleansing Rinsed/ Irrigated with Saline -Foul Odor after Cleansing No -Wound Comment(s) poss. healed 6 rt hand post op -Combined with other wound No -Current Size (cm) - Length 0.1 0.2 0.1 -Current Size (cm) - Width 0.3 0.2 0.2 -Current Size (cm) - Depth 0.1 0.7 0.2 -Total Square Cm 0.03 0.04 0.02 -Photo Taken Yes -Epithelialization Large 67-100% -Tunneling No -Undermining/Tunneling No -Circular Undermining No -Exudate Amt Small Medium Small -Exudate Type Serosanguineous Serosanguineous -Wound Margin Distinct, Distinct, Distinct, Outline Outline Outline Attached Attached Attached -Granulation Amt Small (1-33%) Medium (34-66%) Small (1-33%) -Granulation Quality [place] -Slough/Fibrin Yes -Necrosis Amt Small (1-33%) None Present (0 %) -Necrotic Tissue Type Adherent Slough -Structure Exposed Tendon N/A -Texture (Carolyn-wound Skin Appearance) Assessed Assessed, Scarring Scarring -Moisture (Carolyn-wound Skin Appearance) Assessed, Assessed, Maceration Maceration Maceration -Color (Carolyn-wound Skin Appearance) Assessed Assessed No Abnormality -Temperature (Carolyn-wound Skin No Abnormality No Abnormality No Abnormality Appearance) (Pt Warm) (Pt Warm) (Pt Warm) -Tenderness on Palpation (Carolyn-wound No No Skin Appearance) -Ulcer Cleansing Rinsed/ Wound Cleanser Soap and Water Irrigated with Saline -Foul Odor after Cleansing No No No -Anesthetic Used 5% Lidocaine 5% Lidocaine 5% Lidocaine Gel Gel Gel WC - Nurse 2 - General Ulcer CM Notes Start: 07/04/24 14:43 Freq: Status: Active Protocol: Activity Type Activity Date Activity User E-sign Co-sign Detail Recorded Client Recorded Date Recorded By Document 07/04/24 15:24 [id number] 07/04/24 15:30 Document 07/08/24 13:[address] [facility] [id number] 07/08/24 13:[address] [facility] 07/04/24 07/08/24 15:24 13:20 Wound Center Nurse 2 5 webbing between 1st and second digit -Correct Patient No -Correct Side, Site, Position No -Correct Procedure No -Procedure Performed No -Post Debridement (cm) - Length 0 -Post Debridement (cm) - Width 0 -Post Debridement (cm) - Depth 0 -Total Square (Post) (cm) 0 -Area of Debridement (cm) - Length 0 -Area of Debridement (cm) - Width 0 -Total Square (Area) (cm) 0 -Wound/Ulcer Outcome Healed- Epithelialized 6 rt hand post op -Time 13:21 -Correct Patient No Yes -Correct Side, Site, Position No Yes -Correct Procedure No Yes -Procedure Performed No Yes -Type of Procedure Debridement -Clinical Debridement Subcutaneous -Tissue Removed Subcutaneous -Post Debridement (cm) - Length 0.3 -Post Debridement (cm) - Width 0.2 -Post Debridement (cm) - Depth 0.2 -Total Square (Post) (cm) 0.06 -Area of Debridement (cm) - Length 0.3 -Area of Debridement (cm) - Width 0.2 -Total Square (Area) (cm) 0.06 -Tunneling No -Undermining/Tunneling No -Circular Undermining No -Wound/Ulcer Outcome Not Healed Not Healed -Ulcer Cleansing Rinsed/ Irrigated with Saline -Foul Odor after Cleansing No -Bioengineered Tissue No -Bleeding Controlled with Pressure Pressure -Treatment Response Procedure Procedure Tolerated Well Tolerated Well -Offloading No -Debridement - Subq, 1st 20sq cm Yes Pain Scale: 0-10 Numeric Is Patient Pain Free? Yes Yes - Nurse 3 - General Ulcer D/C NN Start: 07/04/24 14:43 Freq: Status: Active Protocol: Activity Type Activity Date Activity User E-sign Co-sign Detail Recorded Client Recorded Date Recorded By Document 07/04/24 15:47 KW [id number] 07/04/24 15:48 KW Document 07/08/24 13:48 KW [id number] 07/08/24 13:50 KW 07/04/24 07/08/24 15:47 13:48 Wound Care Center Nurse 3 6 rt hand post op -Ulcer Cleansing Soap and Water -Primary Dressing Applied Other Other -Other Dressing xeroform XEROFORM -Primary Dressing Covered/Secured with Dry Gauze,Dry Dry Gauze & Gauze & Roll Roll Gauze, Gauze,Secured Secured with with Tape Tape R HAND -Compression Wrap Zachery Wrap Pain Scale: 0-10 Numeric Is Patient Pain Free? Yes Yes - Visit Discharge Discharge Condition Stable Stable Ambulatory Status Ambulatory Ambulatory Transportation Private Auto Private Auto Medication Reconcilliation completed & No No provided to patient/care provider Clinical Summary of Care Provided Yes Yes Assessment/Plan Assessment/Plan (1) Dehiscence of surgical wound: CODE(S): T81.31XA - Disruption of external operation (surgical) wound, not elsewhere classified, initial encounter QUALIFIERS: Encounter type: initial encounter Qualified Code(s): T81.31XA - Disruption of external operation (surgical) wound, not elsewhere classified, initial encounter (2) Suppurative tenosynovitis of flexor tendon of right hand: CODE(S): M65.141 - Other infective (teno)synovitis, right hand (3) Failed flap: CODE(S): T86.821 - Skin graft (allograft) (autograft) failure PLAN: Plan Plan from 05 Jul 2024: I spoke with the patient extensively about smoking cessation. He is going to try to quit completely. I talked to him about moist wound care over the tendon to prevent desiccation (Xeroform twice daily and as needed). We talked about the risks to the long finger with a tendon exposure and concern for colonization of the tendon with bacteria putting the finger/hand at risk. I called the infectious disease doctor, Dr. Levin, and discussed my concerns and the phone today after this visit. We discussed the need for a chronic antibiotic course for suppression while we provide local wound care and attempt smoking cessation. He was in agreement and he will see the patient again soon. He suggested that we keep current antibiotic regimen. I also spoke to the director the wound care center, Dr. Sai Jerez, who has graciously offered to collaborate. He will see Mr. Garibay as well to attempt some local wound care to promote granulation and coverage over the tendon. Given continued failure of delayed primary closure and local flap reconstruction attempts, we should attempt smoking cessation, local wound care, and continued infectious disease consultation/antibiotics at this time. Patient in agreement with the plan. We talked during the visit as well as on the phone following the visit. He was told to call with any questions and we will arrange follow-up later this week with Dr. Jerez and again on Thursday, 11 July 2024, with me. Plan from 11 Jul 2024: Axiofill applied to the wound bed today (appreciate recommendations from Wound Metal Burrer, Dr. Jerez, and will continue serial debridements in clinic and wound care products to promote granulation). 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 We will plan to re-apply again in 1 week. Patient remains on linezolid 600 mg p.o. daily and azithromycin 500 mg p.o. daily. Discussed smoking cessation (patient now down to 2 cigarettes!). F/u with me in 1 week. Patient given strict return precautions (signs/symptoms of infection). Work up for HBO (ordered today): Echo, EKG, chest xray labs reviewed
--- NOTE | 2024-07-12 09:09 | WC ---
PHOTO 07/11/24 RIGHT HAND
--- NOTE | 2024-07-12 09:10 | WC ---
PHOTO 07/11/24 RIGHT HAND
[2024-07-18 14:29] VITALS: BP 125/69; PULSE 75; RESP 18; TEMP 35.8; BMI 36.9
--- NOTE | 2024-07-18 16:14 | NURSING ---
PHOTO 07/18/24 Right Hand Post op
--- NOTE | 2024-07-19 07:25 | PN.PCM_ITS ---
History of Present Illness Date of Service: 07/18/24 Chief Complaint: Septic flexor tenosynovitis of the right long finger, with residual dehiscent wound at the base of the right long finger History of Wound: Wound Care Center HPI/Summary (Dr. Jerez, 08 Jul 2024) This is a 58-year-old diabetic male smoker who presented on March 06, 2024, with acute septic tenosynovitis of the right long finger. He underwent incision and drainage of the septic right long finger tendon sheath and PIP joint, and was managed on an inpatient basis until discharge on March 15, 2024. During that hospital stay, the patient underwent 2 additional surgical procedures related to his tendon sheath infection. Since that discharge, the patient has undergone 7 additional surgical interventions, which have included sharp excision of necrotic tissue, washouts, tissue transfers, drainage of abscesses, placement of cellular tissue products, and secondary closure of surgical wounds. The most recent surgical procedure was on June 02, 2024, at which time debridement and washout of the right long finger, palm, and webspace was performed with secondary closure of surgical wounds. Integra was also placed to the index and long finger webspace. The patient's management has occurred by both inpatient and outpatient means. The patient has progressed, and all but one of his surgical incisions has healed. An open wound persists on the ulnar aspect at the base of the right long finger, near the metacarpophalangeal joint. The wound is small, and dimensions are documented elsewhere. It is approximately 2 to 3 mm in width, though it extends approximately 7 mm to exposed flexor tendon. The Infectious Disease service has been involved throughout most of the patient's management. Both Dr. Levin and Dr. Francisco have been involved in the patient's care. Though no growth has been noted in the most recent cultures on May 31, 2024, and June 02, 2024, earlier cultures were positive for acid-fast bacilli. As a result, the patient remains on linezolid 600 mg p.o. daily and azithromycin 500 mg daily. The patient is diabetic. He states that his blood sugars are typically well- controlled, ranging between 90 and 136. Diabetes management is overseen by Viola Gunderson, a Nurse Practitioner at the [facility]. The patient claims to consume a generally healthy diet, having recently excluded sugary drinks from his diet, and increasing his protein intake with the use of protein replacement drinks. The patient's serum protein was 5.8 when checked on May 31, 2024. He has been a 4-njyj-rso-day smoker for many years, but has recently reduced his smoking habit to 5 cigarettes/day. Early in the patient's course, he had been advised to perform hand soaks, using Dial soap and water, 3 times daily. However, he is not currently implementing soaks into his regimen. Current treatment involves the use of Xeroform packing changes twice daily. Subjective Subjective 05 Jul 2024: Patient postop week 4 (02 June 2024) from delayed primary closure surgical wounds of the right hand following treatment of flexor tenosynovitis (Mycobacterium abscessus infection). Patient here for wound check. Reports that infectious disease remove PICC line and placed him on oral antibiotic regimen. He was unable to attend his appointment with me last week. Reports that around this time the flexor tendon became exposed boast and 1 small area adjacent to the A1 bruce of the right long finger on the ulnar side. He has not had any fevers or chills or any purulent drainage or redness and warmth (no signs of an acute infection).Patient was unable to attend occupational therapy. Reports excellent blood sugar control. He is also been consistently decreasing his cigarette intake and smokes around 5 cigarettes now per day (discussed smoking cessation today at our visit). 11 Jul 2024: Patient doing well overall. He recently saw Dr. Sai Jerez, director of our wound care center, this past Thursday, 09 July 2024, for second opinion to help me with Mr. Garibay's care (appreciate collaboration). He recommended continued tight glucose control, improved protein intake, complete tobacco cessation, and recommended that we try a product called Axiofill (received free sample from [employer]), which would help promote granulation tissue in the wound bed. I read about the product and discussed with the patient the risks, benefits, and alternatives. He agreed to proceed with the Axiofill placement. 18 Jul 2024: No fevers or chills or hand pain. He has stopped smoking this past week (~4 days ago was last cigarette). Patient also reports intermittent chest pain symptoms, not related to exertion, that feel retrosternal and are not improved/worsened when he touches the area. He has not seen or been re-linked with a training project manager for several years. He has a PCP appointment in July. Has not had a recent stress test. Patient undergoing the testing for HBO currently. Recent EEG demonstrated NSR with RBBB. Objective Data Objective Data Vital Signs: Vital Signs Temp Pulse Resp BP O2 Del Method 96.5 F L 75 18 125/69 H Room Air 07/18/24 14:29 07/18/24 14:29 07/18/24 14:29 07/18/24 14:29 07/18/24 14:29 Oxygen Delivery Method Room Air Weight: 250 lb Body Mass Index (BMI) 36.9 Lab / Micro Data 07/08/24 14:18 07/08/24 14:18 Charges/Coding Procedures Integumentary 111xxx-113xx: [id number] Global Visit Physical Exam Narrative RUE: No drainage or induration. No TTP over the palm/carpal tunnel. Incisions are c/d/i and re-epithelialized, except for ulnar side of the rotation flap over the A1 bruce of the long finger where there is a small amount of exposed flexor tendon with no granulation tissue today s/p Axiofil placement. Integra has incorporated and reepithelialized adjacent to the long finger and the first webspace. No signs of abscess or recurrent infection at this time. Motor: Some stiffness in the long and ring fingers , but bends all MP, PIP, and DIP joints. Good overall key person strength. Long finger ROM: * 70 degrees MP * 90 degrees PIP * 45 degrees DIP Small finger ROM * 65 degrees MP * 65 degrees PIP * 45 degrees DIP Sensation: Intact to light touch on the radial and ulnar borders of all fingers. Const alert and oriented x3 Debridement Note Debridement Note Wound debrided: Right hand Laterality: Right Type of Debridement: Excisional debridement Anesthesia Used: 4% Lidocaine Solution Depth: in the subcutaneous layer Percentage of wound debrided: 100 Instrument Used: 7mm curette Severity: Fat Layer Exposed Amount of bleeding with debridement: Mild Bleeding Controlled with: Pressure Patient tolerated procedure: Patient tolerated procedure well Post-Debridement Measurements and Additional Note: Post-Debridement Measurements/Treatment TRA - Nurse 1 - General Ulcer Assessment Start: 07/04/24 14:43 Freq: Status: Active Protocol: WAYLON Activity Type Activity Date Activity User E-sign Co-sign Detail Recorded Client Recorded Date Recorded By Document 07/04/24 14:44 KW [id number] 07/04/24 14:51 KW Document 07/08/24 13:01 RB [id number] 07/08/24 13:04 RB Document 07/11/24 14:02 DL [id number] 07/11/24 14:08 DL Document 07/18/24 14:29 KW [id number] 07/18/24 14:37 KW 07/04/24 07/08/24 07/11/24 14:44 13:01 14:02 WC - Today's Visit Information Type of service Follow-up Visit Follow-up Visit Follow-up Visit (Physician/CORPORATE REAL ESTATE SPECIALIST (Physician/CORPORATE REAL ESTATE SPECIALIST (Physician/CORPORATE REAL ESTATE SPECIALIST ) ) ) Arrival Mode Ambulatory Ambulatory Ambulatory Transfer Assistance None None Patient Identification Verified (Name & Yes Yes Yes ) Patient Requires Transmission-Based No No Precautions Height and Weight Body Mass Index (BMI) 36.9 36.9 36.9 BMI Classification Obese Obese Obese Vital Signs Temperature (97.8 F-99.1 F) 97.8 F 97.1 F L 98.1 F Temperature Source Temporal Temporal Temporal Pulse Rate (60-100) 71 72 76 Pulse Location Monitor Monitor Monitor Respiratory Rate (12-18) 16 18 18 Respiratory rate source Observation Observation Observation Oxygen Delivery Method Room Air Blood Pressure (90/60-120/80) 74/55 L 139/68 H 140/109 H Blood Pressure Mean (mm Hg) 61 91 119 Source Monitor Monitor Monitor Position Semi-Fowlers Semi-Fowlers Blood Pressure Location Left Arm Left Arm History Since Last Visit- (Skip if this is Patient's initial visit) Have you changed medications since your No No No last visit? Any new allergies or adverse reactions No No No Had a fall/change in ADL's that may No No No increase risk of falls Signs or symptoms of abuse and/or No No No neglect since last visit Have you been in the hospital since your No No No last visit? Has dressing in place as prescribed Yes Yes Yes Has compression in place as prescribed Yes N/A N/A Has offloadiing in place as prescribed N/A N/A Yes Experienced any changes in pain level or No No No management Left Footwear Regular Shoe Right Footwear Regular Shoe Pain Scale: 0-10 Numeric Is Patient Pain Free? Yes Yes Yes 07/18/24 14:29 WC - Today's Visit Information Type of service Follow-up Visit (Physician/CORPORATE REAL ESTATE SPECIALIST ) Arrival Mode Ambulatory Transfer Assistance Patient Identification Verified (Name & Yes ) Patient Requires Transmission-Based Precautions Height and Weight Body Mass Index (BMI) 36.9 BMI Classification Obese Vital Signs Temperature (97.8 F-99.1 F) 96.5 F L Temperature Source Temporal Pulse Rate (60-100) 75 Pulse Location Monitor Respiratory Rate (12-18) 18 Respiratory rate source Observation Oxygen Delivery Method Room Air Blood Pressure (90/60-120/80) 125/69 H Blood Pressure Mean (mm Hg) 87 Source Monitor Position Sitting Blood Pressure Location Right Arm History Since Last Visit- (Skip if this is Patient's initial visit) Have you changed medications since your No last visit? Any new allergies or adverse reactions No Had a fall/change in ADL's that may No increase risk of falls Signs or symptoms of abuse and/or No neglect since last visit Have you been in the hospital since your No last visit? Has dressing in place as prescribed Yes Has compression in place as prescribed N/A Has offloadiing in place as prescribed N/A Experienced any changes in pain level or No management Left Footwear Regular Shoe Right Footwear Regular Shoe Pain Scale: 0-10 Numeric Is Patient Pain Free? Yes WC - Nurse 1 - General Ulcer Measurement Start: 07/04/24 14:43 Freq: Status: Active Protocol: Activity Type Activity Date Activity User E-sign Co-sign Detail Recorded Client Recorded Date Recorded By Document 07/04/24 14:44 KW [id number] 07/04/24 14:51 KW Document 07/08/24 13:01 RB [id number] 07/08/24 13:04 RB Edit Result 07/08/24 13:01 RB (1) [id number] 07/08/24 13:05 RB Document 07/11/24 14:02 DL [id number] 07/11/24 14:08 DL Document 07/18/24 14:29 KW [id number] 07/18/24 14:37 KW (1) 6 rt hand post op - Structure Exposed N/A => Tendon - Moisture (Carolyn-wound Skin Appearance) Assessed => Assessed, => Maceration 07/04/24 07/08/24 07/11/24 14:44 13:01 14:02 Wound Center Nurse 1 5 webbing between 1st and second digit -Current Size (cm) - Length 0.1 -Current Size (cm) - Width 0.1 -Current Size (cm) - Depth 0 -Total Square Cm 0.01 -Epithelialization Large 67-100% -Exudate Amt None Present -Texture (Carolyn-wound Skin Appearance) Assessed -Moisture (Carolyn-wound Skin Appearance) Assessed -Color (Carolyn-wound Skin Appearance) Assessed -Temperature (Carolyn-wound Skin No Abnormality Appearance) (Pt Warm) -Tenderness on Palpation (Carolyn-wound No Skin Appearance) -Ulcer Cleansing Rinsed/ Irrigated with Saline -Foul Odor after Cleansing No -Wound Comment(s) poss. healed 6 rt hand post op -Combined with other wound No -Current Size (cm) - Length 0.1 0.2 0.1 -Current Size (cm) - Width 0.3 0.2 0.2 -Current Size (cm) - Depth 0.1 0.7 0.2 -Total Square Cm 0.03 0.04 0.02 -Date of Last Picture (Recall this field) -Photo Taken Yes -Epithelialization Large 67-100% -Tunneling No -Undermining/Tunneling No -Circular Undermining No -Exudate Amt Small Medium Small -Exudate Type Serosanguineous Serosanguineous -Wound Margin Distinct, Distinct, Distinct, Outline Outline Outline Attached Attached Attached -Granulation Amt Small (1-33%) Medium (34-66%) Small (1-33%) -Granulation Quality Linda Linda Linda -Slough/Fibrin Yes -Necrosis Amt Small (1-33%) None Present (0 %) -Necrotic Tissue Type Adherent Slough -Structure Exposed Tendon N/A -Texture (Carolyn-wound Skin Appearance) Assessed Assessed, Scarring Scarring -Moisture (Carolyn-wound Skin Appearance) Assessed, Assessed, Maceration Maceration Maceration -Color (Carolyn-wound Skin Appearance) Assessed Assessed No Abnormality -Temperature (Carolyn-wound Skin No Abnormality No Abnormality No Abnormality Appearance) (Pt Warm) (Pt Warm) (Pt Warm) -Tenderness on Palpation (Carolyn-wound No No Skin Appearance) -Ulcer Cleansing Rinsed/ Wound Cleanser Soap and Water Irrigated with Saline -Foul Odor after Cleansing No No No -Anesthetic Used 5% Lidocaine 5% Lidocaine 5% Lidocaine Gel Gel Gel 07/18/24 14:29 Wound Center Nurse 1 5 webbing between 1st and second digit -Current Size (cm) - Length -Current Size (cm) - Width -Current Size (cm) - Depth -Total Square Cm -Epithelialization -Exudate Amt -Texture (Carolyn-wound Skin Appearance) -Moisture (Carolyn-wound Skin Appearance) -Color (Carolyn-wound Skin Appearance) -Temperature (Carolyn-wound Skin Appearance) -Tenderness on Palpation (Carolyn-wound Skin Appearance) -Ulcer Cleansing -Foul Odor after Cleansing -Wound Comment(s) 6 rt hand post op -Combined with other wound -Current Size (cm) - Length 0.5 -Current Size (cm) - Width 0.5 -Current Size (cm) - Depth 0.1 -Total Square Cm 0.25 -Date of Last Picture (Recall this 07/18/24 field) -Photo Taken -Epithelialization -Tunneling -Undermining/Tunneling -Circular Undermining -Exudate Amt Small -Exudate Type Serosanguineous -Wound Margin Distinct, Outline Attached -Granulation Amt Small (1-33%) -Granulation Quality Linda -Slough/Fibrin -Necrosis Amt Large (67-100%) -Necrotic Tissue Type Adherent Slough -Structure Exposed -Texture (Carolyn-wound Skin Appearance) Assessed -Moisture (Carolyn-wound Skin Appearance) Assessed -Color (Carolyn-wound Skin Appearance) Assessed -Temperature (Carolyn-wound Skin No Abnormality Appearance) (Pt Warm) -Tenderness on Palpation (Carolyn-wound No Skin Appearance) -Ulcer Cleansing Soap and Water -Foul Odor after Cleansing No -Anesthetic Used 5% Lidocaine Gel WC - Nurse 2 - General Ulcer CM Notes Start: 07/04/24 14:43 Freq: Status: Active Protocol: Activity Type Activity Date Activity User E-sign Co-sign Detail Recorded Client Recorded Date Recorded By Document 07/04/24 15:24 [id number] 07/04/24 15:30 Document 07/08/24 13:20 [facility] [id number] 07/08/24 13:41 [facility] Document 07/11/24 15:58 [id number] 07/11/24 16:00 JF Edit Result 07/11/24 15:58 JF (1) [id number] 07/11/24 16:05 JF Document 07/18/24 14:47 [id number] 07/18/24 14:49 JF (1) 6 rt hand post op - Wound Comment(s) => Amniofill => [id number] 07/04/24 07/08/24 07/11/24 15:24 13:20 15:58 Wound Center Nurse 2 5 webbing between 1st and second digit -Correct Patient No -Correct Side, Site, Position No -Correct Procedure No -Procedure Performed No -Post Debridement (cm) - Length 0 -Post Debridement (cm) - Width 0 -Post Debridement (cm) - Depth 0 -Total Square (Post) (cm) 0 -Area of Debridement (cm) - Length 0 -Area of Debridement (cm) - Width 0 -Total Square (Area) (cm) 0 -Wound/Ulcer Outcome Healed- Epithelialized 6 rt hand post op -Time 13:21 15:58 -Correct Patient No Yes Yes -Correct Side, Site, Position No Yes Yes -Correct Procedure No Yes Yes -Procedure Performed No Yes Yes -Type of Procedure Debridement Debridement -Clinical Debridement Subcutaneous Subcutaneous -Tissue Removed Subcutaneous Subcutaneous -Post Debridement (cm) - Length 0.3 0.5 -Post Debridement (cm) - Width 0.2 0.5 -Post Debridement (cm) - Depth 0.2 0.5 -Total Square (Post) (cm) 0.06 0.25 -Area of Debridement (cm) - Length 0.3 0.5 -Area of Debridement (cm) - Width 0.2 0.5 -Total Square (Area) (cm) 0.06 0.25 -Tunneling No No -Undermining/Tunneling No No -Circular Undermining No No -Wound/Ulcer Outcome Not Healed Not Healed Not Healed -Ulcer Cleansing Rinsed/ Rinsed/ Irrigated with Irrigated with Saline Saline -Foul Odor after Cleansing No No -Bioengineered Tissue No No -Percent Used 100 -Lot number of Saline Used [id number] -Bleeding Controlled with Pressure Pressure Pressure -Treatment Response Procedure Procedure Procedure Tolerated Well Tolerated Well Tolerated Well -Offloading No No -Debridement - Subq, 1st 20sq cm Yes Yes -Debridement - Muscle / Fascia, 1st 20sq cm -Wound Comment(s) Amniofill [id number] Pain Scale: 0-10 Numeric Is Patient Pain Free? Yes Yes Yes 07/18/24 14:47 Wound Center Nurse 2 5 webbing between 1st and second digit -Correct Patient -Correct Side, Site, Position -Correct Procedure -Procedure Performed -Post Debridement (cm) - Length -Post Debridement (cm) - Width -Post Debridement (cm) - Depth -Total Square (Post) (cm) -Area of Debridement (cm) - Length -Area of Debridement (cm) - Width -Total Square (Area) (cm) -Wound/Ulcer Outcome 6 rt hand post op -Time 14:47 -Correct Patient Yes -Correct Side, Site, Position Yes -Correct Procedure Yes -Procedure Performed Yes -Type of Procedure Debridement -Clinical Debridement Muscle / Fascia -Tissue Removed Tendon -Post Debridement (cm) - Length 0.5 -Post Debridement (cm) - Width 0.5 -Post Debridement (cm) - Depth 0.2 -Total Square (Post) (cm) 0.25 -Area of Debridement (cm) - Length 0.5 -Area of Debridement (cm) - Width 0.5 -Total Square (Area) (cm) 0.25 -Tunneling No -Undermining/Tunneling No -Circular Undermining No -Wound/Ulcer Outcome Not Healed -Ulcer Cleansing Rinsed/ Irrigated with Saline -Foul Odor after Cleansing No -Bioengineered Tissue No -Percent Used -Lot number of Saline Used -Bleeding Controlled with Pressure -Treatment Response Procedure Tolerated Well -Offloading No -Debridement - Subq, 1st 20sq cm -Debridement - Muscle / Fascia, 1st Yes 20sq cm -Wound Comment(s) Axiofill ID [id number] used exp date: 2028 Pain Scale: 0-10 Numeric Is Patient Pain Free? Yes - Nurse 3 - General Ulcer D/C NN Start: 07/04/24 14:43 Freq: Status: Active Protocol: Activity Type Activity Date Activity User E-sign Co-sign Detail Recorded Client Recorded Date Recorded By Document 07/04/24 15:47 KW [id number] 07/04/24 15:48 KW Document 07/08/24 13:48 KW [id number] 07/08/24 13:50 KW Document 07/11/24 16:01 JF [id number] 07/11/24 16:01 JF Document 07/18/24 15:03 JF [id number] 07/18/24 15:04 JF 07/04/24 07/08/24 07/11/24 15:47 13:48 16:01 Wound Care Center Nurse 3 6 rt hand post op -Ulcer Cleansing Soap and Water Rinsed/ Irrigated with Saline -Foul Odor after Cleansing No -Primary Dressing Applied Other Other -Other Dressing xeroform XEROFORM -Primary Dressing Covered/Secured with Dry Gauze,Dry Dry Gauze & Dry Gauze & Gauze & Roll Roll Gauze, Roll Gauze, Gauze,Secured Secured with Secured with with Tape Tape Tape R HAND -Compression Wrap Zachery Wrap Zachery Wrap Pain Scale: 0-10 Numeric Is Patient Pain Free? Yes Yes Yes Teaching: Wound Center Smoking Cessation -Person Taught -Teaching Method -Response to teaching WC - Visit Discharge Discharge Condition Stable Stable Stable Ambulatory Status Ambulatory Ambulatory Ambulatory Transportation Private Auto Private Auto Private Auto Medication Reconcilliation completed & No No Yes provided to patient/care provider Clinical Summary of Care Provided Yes Yes Yes Notes: 07/18/24 15:03 Wound Care Center Nurse 3 6 rt hand post op -Ulcer Cleansing Rinsed/ Irrigated with Saline -Foul Odor after Cleansing No -Primary Dressing Applied -Other Dressing WOUND VEIL -Primary Dressing Covered/Secured with Dry Gauze & Roll Gauze, Secured with Tape R HAND -Compression Wrap Pain Scale: 0-10 Numeric Is Patient Pain Free? Yes Teaching: Wound Center Smoking Cessation -Person Taught Patient -Teaching Method Discussion, Demonstration -Response to teaching Verbalize Understanding WC - Visit Discharge Discharge Condition Stable Ambulatory Status Ambulatory Transportation Private Auto Medication Reconcilliation completed & Yes provided to patient/care provider Clinical Summary of Care Provided Yes Notes: CONSULT TO CARDIO FOR CHEST PAIN PATIENT SCHEDULED FOR ECHO FOR hbo PREP IN JULY. FIRST AVAILABLE APPT PROVIDED. Assessment/Plan Assessment/Plan (1) Dehiscence of surgical wound: CODE(S): T81.31XA - Disruption of external operation (surgical) wound, not elsewhere classified, initial encounter QUALIFIERS: Encounter type: initial encounter Qualified Code(s): T81.31XA - Disruption of external operation (surgical) wound, not elsewhere classified, initial encounter (2) Suppurative tenosynovitis of flexor tendon of right hand: CODE(S): M65.141 - Other infective (teno)synovitis, right hand (3) Failed flap: CODE(S): T86.821 - Skin graft (allograft) (autograft) failure PLAN: Plan Plan from 05 Jul 2024: I spoke with the patient extensively about smoking cessation. He is going to try to quit completely. I talked to him about moist wound care over the tendon to prevent desiccation (Xeroform twice daily and as needed). We talked about the risks to the long finger with a tendon exposure and concern for colonization of the tendon with bacteria putting the finger/hand at risk. I called the infectious disease doctor, Dr. Levin, and discussed my concerns and the phone today after this visit. We discussed the need for a chronic antibiotic course for suppression while we provide local wound care and attempt smoking cessation. He was in agreement and he will see the patient again soon. He suggested that we keep current antibiotic regimen. I also spoke to the director the wound care center, Dr. Sai Jerez, who has graciously offered to collaborate. He will see Mr. Garibay as well to attempt some local wound care to promote granulation and coverage over the tendon. Given continued failure of delayed primary closure and local flap reconstruction attempts, we should attempt smoking cessation, local wound care, and continued infectious disease consultation/antibiotics at this time. Patient in agreement with the plan. We talked during the visit as well as on the phone following the visit. He was told to call with any questions and we will arrange follow-up later this week with Dr. Jerez and again on Thursday, 11 July 2024, with me. Plan from 11 Jul 2024: Axiofill applied to the wound bed today (appreciate recommendations from Wound Braided Band Assembler, Dr. Jerez, and will continue serial debridements in clinic and wound care products to promote granulation). 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 We will plan to re-apply Axiofill again in 1 week. Patient remains on linezolid 600 mg p.o. daily and azithromycin 500 mg p.o. daily. Discussed smoking cessation (patient now down to 2 cigarettes!). F/u with me in 1 week. Patient given strict return precautions (signs/symptoms of infection). Work up for HBO (ordered today): Echo, EKG, chest xray labs reviewed Plan from 11 Jul 2024: Referral to our cardiology team here for his echo to be expedited but also for intermittent angina work up. Following the debridement with a curette, 1 cc of the powdered Axiofill was again applied with saline over the powder. The expiration date is January 30, 2029. [id number]. [id number] Rev1. F/u in the wound care center in 1 week.
[2024-07-25 16:02] VITALS: BP 134/67; PULSE 73; RESP 18; TEMP 36.5; BMI 36.9
--- NOTE | 2024-07-26 05:53 | PN.PCM_ITS ---
History of Present Illness Date of Service: 07/25/24 Chief Complaint: Septic flexor tenosynovitis of the right long finger, with residual dehiscent wound at the base of the right long finger History of Wound: Wound Care Center HPI/Summary (Dr. Jerez, 08 Jul 2024) This is a 58-year-old diabetic male smoker who presented on March 06, 2024, with acute septic tenosynovitis of the right long finger. He underwent incision and drainage of the septic right long finger tendon sheath and PIP joint, and was managed on an inpatient basis until discharge on March 15, 2024. During that hospital stay, the patient underwent 2 additional surgical procedures related to his tendon sheath infection. Since that discharge, the patient has undergone 7 additional surgical interventions, which have included sharp excision of necrotic tissue, washouts, tissue transfers, drainage of abscesses, placement of cellular tissue products, and secondary closure of surgical wounds. The most recent surgical procedure was on June 02, 2024, at which time debridement and washout of the right long finger, palm, and webspace was performed with secondary closure of surgical wounds. Integra was also placed to the index and long finger webspace. The patient's management has occurred by both inpatient and outpatient means. The patient has progressed, and all but one of his surgical incisions has healed. An open wound persists on the ulnar aspect at the base of the right long finger, near the metacarpophalangeal joint. The wound is small, and dimensions are documented elsewhere. It is approximately 2 to 3 mm in width, though it extends approximately 7 mm to exposed flexor tendon. The Infectious Disease service has been involved throughout most of the patient's management. Both Dr. Levin and Dr. Francisco have been involved in the patient's care. Though no growth has been noted in the most recent cultures on May 31, 2024, and June 02, 2024, earlier cultures were positive for acid-fast bacilli. As a result, the patient remains on linezolid 600 mg p.o. daily and azithromycin 500 mg daily. The patient is diabetic. He states that his blood sugars are typically well- controlled, ranging between 90 and 136. Diabetes management is overseen by Viola Gunderson, a Nurse Practitioner at the [facility]. The patient claims to consume a generally healthy diet, having recently excluded sugary drinks from his diet, and increasing his protein intake with the use of protein replacement drinks. The patient's serum protein was 5.8 when checked on May 31, 2024. He has been a 0-rkau-gwx-day smoker for many years, but has recently reduced his smoking habit to 5 cigarettes/day. Early in the patient's course, he had been advised to perform hand soaks, using Dial soap and water, 3 times daily. However, he is not currently implementing soaks into his regimen. Current treatment involves the use of Xeroform packing changes twice daily. Subjective Subjective 05 Jul 2024: Patient postop week 4 (02 June 2024) from delayed primary closure surgical wounds of the right hand following treatment of flexor tenosynovitis (Mycobacterium abscessus infection). Patient here for wound check. Reports that infectious disease remove PICC line and placed him on oral antibiotic regimen. He was unable to attend his appointment with me last week. Reports that around this time the flexor tendon became exposed boast and 1 small area adjacent to the A1 bruce of the right long finger on the ulnar side. He has not had any fevers or chills or any purulent drainage or redness and warmth (no signs of an acute infection).Patient was unable to attend occupational therapy. Reports excellent blood sugar control. He is also been consistently decreasing his cigarette intake and smokes around 5 cigarettes now per day (discussed smoking cessation today at our visit). 11 Jul 2024: Patient doing well overall. He recently saw Dr. Sai Jerez, director of our wound care center, this past Thursday, 09 July 2024, for second opinion to help me with Mr. Garibay's care (appreciate collaboration). He recommended continued tight glucose control, improved protein intake, complete tobacco cessation, and recommended that we try a product called Axiofill (received free sample from [facility]), which would help promote granulation tissue in the wound bed. I read about the product and discussed with the patient the risks, benefits, and alternatives. He agreed to proceed with the Axiofill placement. 18 Jul 2024: No fevers or chills or hand pain. He has stopped smoking this past week (~4 days ago was last cigarette). Patient also reports intermittent chest pain symptoms, not related to exertion, that feel retrosternal and are not improved/worsened when he touches the area. He has not seen or been re-linked with a budget and policy analyst for several years. He has a PCP appointment in July. Has not had a recent stress test. Patient undergoing the testing for HBO currently. Recent EEG demonstrated NSR with RBBB. 26 Jul 2024: Doing well overall. No episodes of angina this past week. We have referred him to a budget and policy analyst at [facility] and he is seeing them on 27 July 2024 (this Thursday) for both workup and reestablishment regarding cardiac concerns, as well as for an echocardiogram in anticipation of HBO clearance. Patient does not report any fevers or chills or any pain in the hand. Reports better range of motion. Continues to not smoke (over a week and a half now). He continues on antibiotics from infectious disease. He continues to get weekly labs and follow-up with them. Objective Data Objective Data Vital Signs: Vital Signs Temp Pulse Resp BP O2 Del Method 97.7 F L 73 18 134/67 H Room Air 07/25/24 16:02 07/25/24 16:02 07/25/24 16:02 07/25/24 16:02 07/18/24 14:29 Oxygen Delivery Method Room Air Weight: 250 lb Body Mass Index (BMI) 36.9 Lab / Micro Data 07/08/24 14:18 07/08/24 14:18 Charges/Coding Procedures Integumentary 111xxx-113xx: 26010 Global Visit Physical Exam Narrative RUE: No drainage or induration. No TTP over the palm/carpal tunnel. Incisions are c/d/i and re-epithelialized, except for ulnar side of the rotation flap over the A1 bruce of the long finger where there is a small amount of exposed flexor tendon with no granulation tissue today s/p Axiofil placement. Integra has incorporated and reepithelialized adjacent to the long finger and the first webspace. No signs of abscess or recurrent infection at this time. Motor: Some stiffness in the long and ring fingers , but bends all MP, PIP, and DIP joints. Good overall bucket turner strength. Long finger ROM: * 70 degrees MP * 90 degrees PIP * 45 degrees DIP Small finger ROM * 65 degrees MP * 65 degrees PIP * 45 degrees DIP Sensation: Intact to light touch on the radial and ulnar borders of all fingers. Const alert and oriented x3 Debridement Note Debridement Note Wound debrided: Right long finger at the palm Laterality: Right Wound Grade/Stage: 3 Type of Debridement: Excisional debridement Anesthesia Used: 4% Lidocaine Solution and - (1 cc of 1% lidocaine with 1- 200,000 epinephrine) Depth: to muscle (Exposed tendon) Percentage of wound debrided: 100 Instrument Used: 3mm curette Severity: Necrosis of Muscle (Exposed tendon) Amount of bleeding with debridement: Mild Bleeding Controlled with: Compression and gauze Patient tolerated procedure: Patient tolerated procedure well Post-Debridement Measurements and Additional Note: Post-Debridement Measurements/Treatment - Nurse 1 - General Ulcer Assessment Start: 07/04/24 14:43 Freq: Status: Active Protocol: .Integration Management Activity Type Activity Date Activity User E-sign Co-sign Detail Recorded Client Recorded Date Recorded By Document 07/04/24 14:44 KW [id number] 07/04/24 14:51 KW Document 07/08/24 13:01 RB [id number] 07/08/24 13:04 RB Document 07/11/24 14:02 DL [id number] 07/11/24 14:08 DL Document 07/18/24 14:29 KW [id number] 07/18/24 14:37 KW Document 07/25/24 16:02 DL [id number] 07/25/24 16:09 DL 07/04/24 07/08/24 07/11/24 14:44 13:01 14:02 - Today's Visit Information Type of service Follow-up Visit Follow-up Visit Follow-up Visit (Physician/[facility] (Physician/[facility] (Physician/[facility] ) ) ) Arrival Mode Ambulatory Ambulatory Ambulatory Transfer Assistance None None Patient Identification Verified (Name & Yes Yes Yes ) Patient Requires Transmission-Based No No Precautions Height and Weight Body Mass Index (BMI) 36.9 36.9 36.9 BMI Classification Obese Obese Obese Vital Signs Temperature (97.8 F-99.1 F) 97.8 F 97.1 F L 98.1 F Temperature Source Temporal Temporal Temporal Pulse Rate (60-100) 71 72 76 Pulse Location Monitor Monitor Monitor Respiratory Rate (12-18) 16 18 18 Respiratory rate source Observation Observation Observation Oxygen Delivery Method Room Air Blood Pressure (90/60-120/80) 74/55 L 139/68 H 140/109 H Blood Pressure Mean (mm Hg) 61 91 119 Source Monitor Monitor Monitor Position Semi-Fowlers Semi-Fowlers Blood Pressure Location Left Arm Left Arm History Since Last Visit- (Skip if this is Patient's initial visit) Have you changed medications since your No No No last visit? Any new allergies or adverse reactions No No No Had a fall/change in ADL's that may No No No increase risk of falls Signs or symptoms of abuse and/or No No No neglect since last visit Have you been in the hospital since your No No No last visit? Has dressing in place as prescribed Yes Yes Yes Has compression in place as prescribed Yes N/A N/A Has offloadiing in place as prescribed N/A N/A Yes Experienced any changes in pain level or No No No management Left Footwear Regular Shoe Right Footwear Regular Shoe Pain Scale: 0-10 Numeric Is Patient Pain Free? Yes Yes Yes 07/18/24 07/25/24 14:29 16:02 WC - Today's Visit Information Type of service Follow-up Visit Follow-up Visit (Physician/[facility] (Physician/[facility] ) ) Arrival Mode Ambulatory Ambulatory Transfer Assistance None Patient Identification Verified (Name & Yes Yes ) Patient Requires Transmission-Based No Precautions Height and Weight Body Mass Index (BMI) 36.9 36.9 BMI Classification Obese Obese Vital Signs Temperature (97.8 F-99.1 F) 96.5 F L 97.7 F L Temperature Source Temporal Temporal Pulse Rate (60-100) 75 73 Pulse Location Monitor Monitor Respiratory Rate (12-18) 18 18 Respiratory rate source Observation Observation Oxygen Delivery Method Room Air Blood Pressure (90/60-120/80) 125/69 H 134/67 H Blood Pressure Mean (mm Hg) 87 89 Source Monitor Monitor Position Sitting Blood Pressure Location Right Arm History Since Last Visit- (Skip if this is Patient's initial visit) Have you changed medications since your No No last visit? Any new allergies or adverse reactions No No Had a fall/change in ADL's that may No No increase risk of falls Signs or symptoms of abuse and/or No No neglect since last visit Have you been in the hospital since your No No last visit? Has dressing in place as prescribed Yes Yes Has compression in place as prescribed N/A N/A Has offloadiing in place as prescribed N/A Yes Experienced any changes in pain level or No No management Left Footwear Regular Shoe Right Footwear Regular Shoe Pain Scale: 0-10 Numeric Is Patient Pain Free? Yes Yes WC - Nurse 1 - General Ulcer Measurement Start: 07/04/24 14:43 Freq: Status: Active Protocol: Activity Type Activity Date Activity User E-sign Co-sign Detail Recorded Client Recorded Date Recorded By Document 07/04/24 14:44 KW [id number] 07/04/24 14:51 KW Document 07/08/24 13:01 RB [id number] 07/08/24 13:04 RB Edit Result 07/08/24 13:01 RB (1) [id number] 07/08/24 13:05 RB Document 07/11/24 14:02 DL [id number] 07/11/24 14:08 DL Document 07/18/24 14:29 KW [id number] 07/18/24 14:37 KW Document 07/25/24 16:02 DL [id number] 07/25/24 16:09 DL (1) 6 rt hand post op - Structure Exposed N/A => Tendon - Moisture (Carolyn-wound Skin Appearance) Assessed => Assessed, => Maceration 07/04/24 07/08/24 07/11/24 14:44 13:01 14:02 Wound Center Nurse 1 5 webbing between 1st and second digit -Current Size (cm) - Length 0.1 -Current Size (cm) - Width 0.1 -Current Size (cm) - Depth 0 -Total Square Cm 0.01 -Epithelialization Large 67-100% -Exudate Amt None Present -Texture (Carolyn-wound Skin Appearance) Assessed -Moisture (Carolyn-wound Skin Appearance) Assessed -Color (Carolyn-wound Skin Appearance) Assessed -Temperature (Carolyn-wound Skin No Abnormality Appearance) (Pt Warm) -Tenderness on Palpation (Carolyn-wound No Skin Appearance) -Ulcer Cleansing Rinsed/ Irrigated with Saline -Foul Odor after Cleansing No -Wound Comment(s) poss. healed 6 rt hand post op -Combined with other wound No -Current Size (cm) - Length 0.1 0.2 0.1 -Current Size (cm) - Width 0.3 0.2 0.2 -Current Size (cm) - Depth 0.1 0.7 0.2 -Total Square Cm 0.03 0.04 0.02 -Date of Last Picture (Recall this field) -Photo Taken Yes -Epithelialization Large 67-100% -Tunneling No -Undermining/Tunneling No -Circular Undermining No -Exudate Amt Small Medium Small -Exudate Type Serosanguineous Serosanguineous -Wound Margin Distinct, Distinct, Distinct, Outline Outline Outline Attached Attached Attached -Granulation Amt Small (1-33%) Medium (34-66%) Small (1-33%) -Granulation Quality Venetie Venetie Venetie -Slough/Fibrin Yes -Necrosis Amt Small (1-33%) None Present (0 %) -Necrotic Tissue Type Adherent Slough -Structure Exposed Tendon N/A -Texture (Carolyn-wound Skin Appearance) Assessed Assessed, Scarring Scarring -Moisture (Carolyn-wound Skin Appearance) Assessed, Assessed, Maceration Maceration Maceration -Color (Carolyn-wound Skin Appearance) Assessed Assessed No Abnormality -Temperature (Carolyn-wound Skin No Abnormality No Abnormality No Abnormality Appearance) (Pt Warm) (Pt Warm) (Pt Warm) -Tenderness on Palpation (Carolyn-wound No No Skin Appearance) -Ulcer Cleansing Rinsed/ Wound Cleanser Soap and Water Irrigated with Saline -Foul Odor after Cleansing No No No -Anesthetic Used 5% Lidocaine 5% Lidocaine 5% Lidocaine Gel Gel Gel 07/18/24 07/25/24 14:29 16:02 Wound Center Nurse 1 5 webbing between 1st and second digit -Current Size (cm) - Length -Current Size (cm) - Width -Current Size (cm) - Depth -Total Square Cm -Epithelialization -Exudate Amt -Texture (Carolyn-wound Skin Appearance) -Moisture (Carolyn-wound Skin Appearance) -Color (Carolyn-wound Skin Appearance) -Temperature (Carolyn-wound Skin Appearance) -Tenderness on Palpation (Carolyn-wound Skin Appearance) -Ulcer Cleansing -Foul Odor after Cleansing -Wound Comment(s) 6 rt hand post op -Combined with other wound -Current Size (cm) - Length 0.5 0.8 -Current Size (cm) - Width 0.5 0.5 -Current Size (cm) - Depth 0.1 0.2 -Total Square Cm 0.25 0.40 -Date of Last Picture (Recall this 07/18/24 field) -Photo Taken -Epithelialization -Tunneling -Undermining/Tunneling -Circular Undermining -Exudate Amt Small Small -Exudate Type Serosanguineous -Wound Margin Distinct, Distinct, Outline Outline Attached Attached -Granulation Amt Small (1-33%) Large (67-100%) -Granulation Quality Venetie Venetie -Slough/Fibrin -Necrosis Amt Large (67-100%) None Present (0 %) -Necrotic Tissue Type Adherent Slough -Structure Exposed Tendon -Texture (Carolyn-wound Skin Appearance) Assessed Scarring -Moisture (Carolyn-wound Skin Appearance) Assessed No Abnormality -Color (Carolyn-wound Skin Appearance) Assessed No Abnormality -Temperature (Carolyn-wound Skin No Abnormality No Abnormality Appearance) (Pt Warm) (Pt Warm) -Tenderness on Palpation (Carolyn-wound No No Skin Appearance) -Ulcer Cleansing Soap and Water Rinsed/ Irrigated with Saline -Foul Odor after Cleansing No No -Anesthetic Used 5% Lidocaine 5% Lidocaine Gel Gel WC - Nurse 2 - General Ulcer CM Notes Start: 07/04/24 14:43 Freq: Status: Active Protocol: Activity Type Activity Date Activity User E-sign Co-sign Detail Recorded Client Recorded Date Recorded By Document 07/04/24 15:24 [id number] 07/04/24 15:30 Document 07/08/24 13:20 [facility] [id number] 07/08/24 13:41 [facility] Document 07/11/24 15:58 [id number] 07/11/24 16:00 Edit Result 07/11/24 15:58 JF (1) [id number] 07/11/24 16:05 Document 07/18/24 14:47 [id number] 07/18/24 14:49 Document 07/25/24 16:25 [id number] 07/25/24 16:27 JF (1) 6 rt hand post op - Wound Comment(s) => Amniofill => [id number] 07/04/24 07/08/24 07/11/24 15:24 13:20 15:58 Wound Center Nurse 2 5 webbing between 1st and second digit -Correct Patient No -Correct Side, Site, Position No -Correct Procedure No -Procedure Performed No -Post Debridement (cm) - Length 0 -Post Debridement (cm) - Width 0 -Post Debridement (cm) - Depth 0 -Total Square (Post) (cm) 0 -Area of Debridement (cm) - Length 0 -Area of Debridement (cm) - Width 0 -Total Square (Area) (cm) 0 -Wound/Ulcer Outcome Healed- Epithelialized 6 rt hand post op -Time 13:21 15:58 -Correct Patient No Yes Yes -Correct Side, Site, Position No Yes Yes -Correct Procedure No Yes Yes -Procedure Performed No Yes Yes -Type of Procedure Debridement Debridement -Clinical Debridement Subcutaneous Subcutaneous -Tissue Removed Subcutaneous Subcutaneous -Post Debridement (cm) - Length 0.3 0.5 -Post Debridement (cm) - Width 0.2 0.5 -Post Debridement (cm) - Depth 0.2 0.5 -Total Square (Post) (cm) 0.06 0.25 -Area of Debridement (cm) - Length 0.3 0.5 -Area of Debridement (cm) - Width 0.2 0.5 -Total Square (Area) (cm) 0.06 0.25 -Tunneling No No -Undermining/Tunneling No No -Circular Undermining No No -Wound/Ulcer Outcome Not Healed Not Healed Not Healed -Ulcer Cleansing Rinsed/ Rinsed/ Irrigated with Irrigated with Saline Saline -Foul Odor after Cleansing No No -Bioengineered Tissue No No -Percent Used 100 -Lot number of Saline Used [id number] -Bleeding Controlled with Pressure Pressure Pressure -Treatment Response Procedure Procedure Procedure Tolerated Well Tolerated Well Tolerated Well -Offloading No No -Debridement - Subq, 1st 20sq cm Yes Yes -Debridement - Muscle / Fascia, 1st 20sq cm -Wound Comment(s) Garrison [id number] Pain Scale: 0-10 Numeric Is Patient Pain Free? Yes Yes Yes 07/18/24 07/25/24 14:47 16:25 Wound Center Nurse 2 5 webbing between 1st and second digit -Correct Patient -Correct Side, Site, Position -Correct Procedure -Procedure Performed -Post Debridement (cm) - Length -Post Debridement (cm) - Width -Post Debridement (cm) - Depth -Total Square (Post) (cm) -Area of Debridement (cm) - Length -Area of Debridement (cm) - Width -Total Square (Area) (cm) -Wound/Ulcer Outcome 6 rt hand post op -Time 14:47 16:26 -Correct Patient Yes Yes -Correct Side, Site, Position Yes Yes -Correct Procedure Yes Yes -Procedure Performed Yes Yes -Type of Procedure Debridement Debridement -Clinical Debridement Muscle / Fascia Muscle / Fascia -Tissue Removed Tendon Muscle,Fascia -Post Debridement (cm) - Length 0.5 1.0 -Post Debridement (cm) - Width 0.5 0.5 -Post Debridement (cm) - Depth 0.2 0.3 -Total Square (Post) (cm) 0.25 0.50 -Area of Debridement (cm) - Length 0.5 1.0 -Area of Debridement (cm) - Width 0.5 0.5 -Total Square (Area) (cm) 0.25 0.50 -Tunneling No No -Undermining/Tunneling No No -Circular Undermining No No -Wound/Ulcer Outcome Not Healed Not Healed -Ulcer Cleansing Rinsed/ Rinsed/ Irrigated with Irrigated with Saline Saline -Foul Odor after Cleansing No No -Bioengineered Tissue No No -Percent Used -Lot number of Saline Used -Bleeding Controlled with Pressure Pressure -Treatment Response Procedure Procedure Tolerated Well Tolerated Well -Offloading No No -Debridement - Subq, 1st 20sq cm -Debridement - Muscle / Fascia, 1st Yes Yes 20sq cm -Wound Comment(s) Axiofill ID [id number] used exp date: 2028 Pain Scale: 0-10 Numeric Is Patient Pain Free? Yes Yes WC - Nurse 3 - General Ulcer D/C NN Start: 07/04/24 14:43 Freq: Status: Active Protocol: Activity Type Activity Date Activity User E-sign Co-sign Detail Recorded Client Recorded Date Recorded By Document 07/04/24 15:47 KW [id number] 07/04/24 15:48 KW Document 07/08/24 13:48 KW [id number] 07/08/24 13:50 KW Document 07/11/24 16:01 [id number] 07/11/24 16:01 JF Document 07/18/24 15:03 JF [id number] 07/18/24 15:04 JF Document 07/25/24 16:40 DL [id number] 07/25/24 16:41 DL 07/04/24 07/08/24 07/11/24 15:47 13:48 16:01 Wound Care Center Nurse 3 6 rt hand post op -Ulcer Cleansing Soap and Water Rinsed/ Irrigated with Saline -Foul Odor after Cleansing No -Primary Dressing Applied Other Other -Other Dressing xeroform XEROFORM -Primary Dressing Covered/Secured with Dry Gauze,Dry Dry Gauze & Dry Gauze & Gauze & Roll Roll Gauze, Roll Gauze, Gauze,Secured Secured with Secured with with Tape Tape Tape R HAND -Compression Wrap Zachery Wrap Zachery Wrap Pain Scale: 0-10 Numeric Is Patient Pain Free? Yes Yes Yes Teaching: Wound Center Smoking Cessation -Person Taught -Teaching Method -Response to teaching WC - Visit Discharge Discharge Condition Stable Stable Stable Ambulatory Status Ambulatory Ambulatory Ambulatory Transportation Private [employer]ro[employer] Auto Medication Reconcilliation completed & No No Yes provided to patient/care provider Clinical Summary of Care Provided Yes Yes Yes Notes: 6 rt hand post op -Ulcer Cleansing -Foul Odor after Cleansing -Other Dressing -Primary Dressing Covered/Secured with Treatment Response 07/18/24 07/25/24 15:03 16:40 Wound Care Center Nurse 3 6 rt hand post op -Ulcer Cleansing Rinsed/ Irrigated with Saline -Foul Odor after Cleansing No -Primary Dressing Applied -Other Dressing WOUND VEIL -Primary Dressing Covered/Secured with Dry Gauze & Roll Gauze, Secured with Tape R HAND -Compression Wrap Pain Scale: 0-10 Numeric Is Patient Pain Free? Yes Yes Teaching: Wound Center Smoking Cessation -Person Taught Patient -Teaching Method Discussion, Demonstration -Response to teaching Verbalize Understanding WC - Visit Discharge Discharge Condition Stable Stable Ambulatory Status Ambulatory Ambulatory Transportation Prixtel Medication Reconcilliation completed & Yes provided to patient/care provider Clinical Summary of Care Provided Yes Notes: CONSULT TO CARDIO FOR CHEST PAIN PATIENT SCHEDULED FOR ECHO FOR hbo PREP IN JULY. FIRST AVAILABLE APPT PROVIDED. 6 rt hand post op -Ulcer Cleansing Rinsed/ Irrigated with Saline -Foul Odor after Cleansing No -Other Dressing xeroform -Primary Dressing Covered/Secured with Dry Gauze, Secured with Tape Treatment Response Procedure Tolerated Well Assessment/Plan Assessment/Plan (1) Dehiscence of surgical wound: CODE(S): T81.31XA - Disruption of external operation (surgical) wound, not elsewhere classified, initial encounter QUALIFIERS: Encounter type: initial encounter Qualified Code(s): T81.31XA - Disruption of external operation (surgical) wound, not elsewhere classified, initial encounter (2) Suppurative tenosynovitis of flexor tendon of right hand: CODE(S): M65.141 - Other infective (teno)synovitis, right hand (3) Failed flap: CODE(S): T86.821 - Skin graft (allograft) (autograft) failure PLAN: Plan Plan from 05 Jul 2024: I spoke with the patient extensively about smoking cessation. He is going to try to quit completely. I talked to him about moist wound care over the tendon to prevent desiccation (Xeroform twice daily and as needed). We talked about the risks to the long finger with a tendon exposure and concern for colonization of the tendon with bacteria putting the finger/hand at risk. I called the infectious disease doctor, Dr. Levin, and discussed my concerns and the phone today after this visit. We discussed the need for a chronic antibiotic course for suppression while we provide local wound care and attempt smoking cessation. He was in agreement and he will see the patient again soon. He suggested that we keep current antibiotic regimen. I also spoke to the director the wound care center, Dr. Sai Jerez, who has graciously offered to collaborate. He will see Mr. Garibay as well to attempt some local wound care to promote granulation and coverage over the tendon. Given continued failure of delayed primary closure and local flap reconstruction attempts, we should attempt smoking cessation, local wound care, and continued infectious disease consultation/antibiotics at this time. Patient in agreement with the plan. We talked during the visit as well as on the phone following the visit. He was told to call with any questions and we will arrange follow-up later this week with Dr. Jerez and again on Thursday, 11 July 2024, with me. Plan from 11 Jul 2024: Axiofill applied to the wound bed today (appreciate recommendations from Wound Java Developer With Security Clearance, Dr. Jerez, and will continue serial debridements in clinic and wound care products to promote granulation). 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 We will plan to re-apply Axiofill again in 1 week. Patient remains on linezolid 600 mg p.o. daily and azithromycin 500 mg p.o. daily. Discussed smoking cessation (patient now down to 2 cigarettes!). F/u with me in 1 week. Patient given strict return precautions (signs/symptoms of infection). Work up for HBO (ordered today): Echo, EKG, chest xray labs reviewed Plan from 11 Jul 2024: Referral to our cardiology team here for his echo to be expedited but also for intermittent angina work up. Following the debridement with a curette, 1 cc of the powdered Axiofill was again applied with saline over the powder. The expiration date is January 30, 2029. [id number]. [id number] Rev1. F/u in the wound care center in 1 week. Plan from 25 July 2024: Axiofill did not seem to promote any significant granulation over the past 2 weeks. Switching back to Xeroform twice daily with serial debridements. Plan for hyperbaric oxygen and continued antibiotics for chronic suppression from infectious disease. Appreciate cardiology seeing patient sooner at our request (plan for cardiology visit on Thursday, 27 July 2024, for clearance and heart health workup). Follow-up with me in 1 week at the wound care center
== END 2024-07-29 23:59 | disposition home or self-care (01) ==
LOC: WC 16:00
PROVIDERS: PCP Nurse Practitioner Family; Referring Provider Internal Medicine Infectious Disease; Visit Provider Surgery
DX: T81.31XA Disruption of external operation (surgical) wound, not elsewhere classified, initial encounter (principal); M00.849 Arthritis due to other bacteria, unspecified hand; J44.9 Chronic obstructive pulmonary disease, unspecified; E11.9 Type 2 diabetes mellitus without complications; Z79.4 Long term (current) use of insulin; M65.141 Other infective (teno)synovitis, right hand; G47.33 Obstructive sleep apnea (adult) (pediatric); I25.10 Atherosclerotic heart disease of native coronary artery without angina pectoris; Z86.73 Personal history of transient ischemic attack (TIA), and cerebral infarction without residual deficits; Z79.51 Long term (current) use of inhaled steroids; Z79.84 Long term (current) use of oral hypoglycemic drugs; Z79.85 Long-term (current) use of injectable non-insulin antidiabetic drugs; M65.941 Unspecified synovitis and tenosynovitis, right hand; Z79.02 Long term (current) use of antithrombotics/antiplatelets; Z90.49 Acquired absence of other specified parts of digestive tract; I10 Essential (primary) hypertension; E78.2 Mixed hyperlipidemia; Z82.3 Family history of stroke; Z71.6 Tobacco abuse counseling; K76.0 Fatty (change of) liver, not elsewhere classified; K21.9 Gastro-esophageal reflux disease without esophagitis; E07.9 Disorder of thyroid, unspecified; Z79.890 Hormone replacement therapy; Z95.5 Presence of coronary angioplasty implant and graft; I45.10 Unspecified right bundle-branch block; L08.9 Local infection of the skin and subcutaneous tissue, unspecified; R06.09 Other forms of dyspnea; Z87.19 Personal history of other diseases of the digestive system; Z99.89 Dependence on other enabling machines and devices; T86.821 Skin graft (allograft) (autograft) failure; F17.210 Nicotine dependence, cigarettes, uncomplicated; S61.401D Unspecified open wound of right hand, subsequent encounter
CPT/HCPCS: 11042; 11043; 36415; 80048; 83036; 84155; 85025; 99213; G0463

== ENCOUNTER 2024-08-15 14:30 | Outpatient (RCR) | payer MEDICAID, SELFPAY ==
[2024-07-30 02:29] VITALS: BP 134/67; PULSE 73; RESP 18; TEMP 36.5; BMI 36.9
[2024-08-01 08:50] VITALS: BP 132/76; PULSE 67; RESP 16; TEMP 36.3; BMI 36.9
--- NOTE | 2024-08-01 11:17 | PCM.WC.PN ---
History of Present Illness Date of Service: 08/01/24 Chief Complaint: Septic flexor tenosynovitis of the right long finger, with residual dehiscent wound at the base of the right long finger History of Wound: Wound Care Center HPI/Summary (Dr. Jerez, 08 Jul 2024) This is a 58-year-old diabetic male smoker who presented on March 06, 2024, with acute septic tenosynovitis of the right long finger. He underwent incision and drainage of the septic right long finger tendon sheath and PIP joint, and was managed on an inpatient basis until discharge on March 15, 2024. During that hospital stay, the patient underwent 2 additional surgical procedures related to his tendon sheath infection. Since that discharge, the patient has undergone 7 additional surgical interventions, which have included sharp excision of necrotic tissue, washouts, tissue transfers, drainage of abscesses, placement of cellular tissue products, and secondary closure of surgical wounds. The most recent surgical procedure was on June 02, 2024, at which time debridement and washout of the right long finger, palm, and webspace was performed with secondary closure of surgical wounds. Integra was also placed to the index and long finger webspace. The patient's management has occurred by both inpatient and outpatient means. The patient has progressed, and all but one of his surgical incisions has healed. An open wound persists on the ulnar aspect at the base of the right long finger, near the metacarpophalangeal joint. The wound is small, and dimensions are documented elsewhere. It is approximately 2 to 3 mm in width, though it extends approximately 7 mm to exposed flexor tendon. The Infectious Disease service has been involved throughout most of the patient's management. Both Dr. Levin and Dr. Francisco have been involved in the patient's care. Though no growth has been noted in the most recent cultures on May 31, 2024, and June 02, 2024, earlier cultures were positive for acid-fast bacilli. As a result, the patient remains on linezolid 600 mg p.o. daily and azithromycin 500 mg daily. The patient is diabetic. He states that his blood sugars are typically well-controlled, ranging between 90 and 136. Diabetes management is overseen by Viola Gunderson, a Nurse Practitioner at the [facility]. The patient claims to consume a generally healthy diet, having recently excluded sugary drinks from his diet, and increasing his protein intake with the use of protein replacement drinks. The patient's serum protein was 5.8 when checked on May 31, 2024. He has been a 0-yqop-fvv-day smoker for many years, but has recently reduced his smoking habit to 5 cigarettes/day. Early in the patient's course, he had been advised to perform hand soaks, using Dial soap and water, 3 times daily. However, he is not currently implementing soaks into his regimen. Current treatment involves the use of Xeroform packing changes twice daily. Subjective Subjective 05 Jul 2024: Patient postop week 4 (02 June 2024) from delayed primary closure surgical wounds of the right hand following treatment of flexor tenosynovitis (Mycobacterium abscessus infection). Patient here for wound check. Reports that infectious disease remove PICC line and placed him on oral antibiotic regimen. He was unable to attend his appointment with me last week. Reports that around this time the flexor tendon became exposed boast and 1 small area adjacent to the A1 bruce of the right long finger on the ulnar side. He has not had any fevers or chills or any purulent drainage or redness and warmth (no signs of an acute infection).Patient was unable to attend occupational therapy. Reports excellent blood sugar control. He is also been consistently decreasing his cigarette intake and smokes around 5 cigarettes now per day (discussed smoking cessation today at our visit). 11 Jul 2024: Patient doing well overall. He recently saw Dr. Sai Jerez, director of our wound care center, this past Thursday, 09 July 2024, for second opinion to help me with Mr. Garibay's care (appreciate collaboration). He recommended continued tight glucose control, improved protein intake, complete tobacco cessation, and recommended that we try a product called Axiofill (received free sample from [employer]), which would help promote granulation tissue in the wound bed. I read about the product and discussed with the patient the risks, benefits, and alternatives. He agreed to proceed with the Axiofill placement. 18 Jul 2024: No fevers or chills or hand pain. He has stopped smoking this past week (~4 days ago was last cigarette). Patient also reports intermittent chest pain symptoms, not related to exertion, that feel retrosternal and are not improved/worsened when he touches the area. He has not seen or been re-linked with a noise tester for several years. He has a PCP appointment in July. Has not had a recent stress test. Patient undergoing the testing for HBO currently. Recent EEG demonstrated NSR with RBBB. 26 Jul 2024: Doing well overall. No episodes of angina this past week. We have referred him to a noise tester at [facility] and he is seeing them on 27 July 2024 (this Thursday) for both workup and reestablishment regarding cardiac concerns, as well as for an echocardiogram in anticipation of HBO clearance. Patient does not report any fevers or chills or any pain in the hand. Reports better range of motion. Continues to not smoke (over a week and a half now). He continues on antibiotics from infectious disease. He continues to get weekly labs and follow-up with them. CURRENT ENCOUNTER, 01 August 2024: Patient has been off cigarettes for 2 weeks now. He reports continued improvement in range of motion, and is following up with infectious disease this Thursday, 03 August 2024. He continues on chronic suppressive antibiotics. Patient has an echocardiogram scheduled and also has a stress test scheduled as he saw our noise tester last week for evaluation in the setting of his chest pain episodes and need for clearance for hyperbaric oxygen therapy. Patient continues to do twice daily Xeroform and is keeping the tendon and wound moist. Objective Data Objective Data Vital Signs: Vital Signs Temp Pulse Resp BP O2 Del Method 97.4 F L 67 16 132/76 H Room Air 08/01/24 08:50 08/01/24 08:50 08/01/24 08:50 08/01/24 08:50 08/01/24 08:50 Oxygen Delivery Method Room Air Weight: 250 lb Body Mass Index (BMI) 36.9 Charges/Coding Procedures Integumentary 111xxx-113xx: [id number] Global Visit Physical Exam Narrative RUE: No drainage or induration. No TTP over the palm/carpal tunnel. Incisions are c/d/i and re-epithelialized, except for ulnar side of the rotation flap over the A1 bruce of the long finger where there is a small amount of exposed flexor tendon with some granulation tissue present today s/p Axiofil placement. No signs of abscess or recurrent infection at this time. Motor: Some stiffness in the long and ring fingers , but bends all MP, PIP, and DIP joints. Good overall rn navigator strength. Able to oppose the small finger to the thumb. Long finger ROM: 70 degrees MP 90 degrees PIP 45 degrees DIP Small finger ROM 65 degrees MP 65 degrees PIP 45 degrees DIP Sensation: Intact to light touch on the radial and ulnar borders of all fingers. Const alert and oriented x3 Debridement Note Debridement Note Wound debrided: Right hand palm Laterality: Right Wound Grade/Stage: 3 Type of Debridement: Excisional debridement Anesthesia Used: 4% Lidocaine Solution Depth: Down to and including healthy tissue Percentage of wound debrided: 100 Instrument Used: 7mm curette Severity: Fat Layer Exposed Amount of bleeding with debridement: Mild Bleeding Controlled with: Compression and gauze Patient tolerated procedure: Patient tolerated procedure well Post-Debridement Measurements and Additional Note: Post-Debridement Measurements/Treatment - Nurse 1 - General Ulcer Assessment Start: 08/01/24 08:50 Freq: Status: Active Protocol: TRA.GARFIELD Activity Type Activity Date Activity User E-sign Co-sign Detail Recorded Client Recorded Date Recorded By Document 08/01/24 08:50 [facility] [id number] 08/01/24 08:54 [facility] 08/01/24 08:50 - Today's Visit Information Type of service Follow-up Visit (Physician/MEDICAID ELIGIBILITY SPECIALIST ) Arrival Mode Ambulatory Transfer Assistance None Patient Identification Verified (Name & Yes ) Patient Requires Transmission-Based No Precautions Height and Weight Body Mass Index (BMI) 36.9 BMI Classification Obese Vital Signs Temperature (97.8 F-99.1 F) 97.4 F L Temperature Source Temporal Pulse Rate (60-100) 67 Pulse Location Monitor Respiratory Rate (12-18) 16 Respiratory rate source Observation Oxygen Delivery Method Room Air Blood Pressure (90/60-120/80) 132/76 H Blood Pressure Mean (mm Hg) 94 Source Monitor Position Sitting Blood Pressure Location Right Arm History Since Last Visit- (Skip if this is Patient's initial visit) Have you changed medications since your No last visit? Any new allergies or adverse reactions No Had a fall/change in ADL's that may No increase risk of falls Signs or symptoms of abuse and/or No neglect since last visit Have you been in the hospital since your No last visit? Has dressing in place as prescribed Yes Has compression in place as prescribed N/A Has offloadiing in place as prescribed N/A Experienced any changes in pain level or No management Left Footwear Regular Shoe Right Footwear Regular Shoe Pain Scale: 0-10 Numeric Is Patient Pain Free? Yes WC - Nurse 1 - General Ulcer Measurement Start: 08/01/24 08:50 Freq: Status: Active Protocol: Activity Type Activity Date Activity User E-sign Co-sign Detail Recorded Client Recorded Date Recorded By Document 08/01/24 08:50 [facility] [id number] 08/01/24 08:54 BM 08/01/24 08:50 Wound Center Nurse 1 6 rt hand post op -Combined with other wound No -Current Size (cm) - Length 1.1 -Current Size (cm) - Width 0.4 -Current Size (cm) - Depth 0.1 -Total Square Cm 0.44 -Date of Last Picture (Recall this 08/01/24 field) -Photo Taken Yes -Epithelialization Small 1-33% -Tunneling No -Undermining/Tunneling No -Circular Undermining No -Exudate Amt Small -Exudate Type Serous -Wound Margin Distinct, Outline Attached -Granulation Amt Small (1-33%) -Granulation Quality Red -Structure Exposed Tendon -Texture (Carolyn-wound Skin Appearance) Assessed -Moisture (Carolyn-wound Skin Appearance) Assessed -Color (Carolyn-wound Skin Appearance) Assessed -Temperature (Carolyn-wound Skin No Abnormality Appearance) (Pt Warm) -Tenderness on Palpation (Carolyn-wound No Skin Appearance) -Ulcer Cleansing Rinsed/ Irrigated with Saline -Foul Odor after Cleansing No -Anesthetic Used 5% Lidocaine Gel -Wound Comment(s) majority of wound is the exposed tendon WC - Nurse 2 - General Ulcer CM Notes Start: 08/01/24 08:50 Freq: Status: Active Protocol: Activity Type Activity Date Activity User E-sign Co-sign Detail Recorded Client Recorded Date Recorded By Document 08/01/24 09:14 DS [id number] 08/01/24 09:21 DS 08/01/24 09:14 Wound Center Nurse 2 -Time 09:14 -Correct Patient Yes -Correct Side, Site, Position Yes -Correct Procedure Yes -Procedure Performed Yes -Type of Procedure Debridement -Clinical Debridement Muscle / Fascia -Tissue Removed Fascia -Post Debridement (cm) - Length 1.0 -Post Debridement (cm) - Width 0.5 -Post Debridement (cm) - Depth 0.3 -Total Square (Post) (cm) 0.50 -Area of Debridement (cm) - Length 1.0 -Area of Debridement (cm) - Width 0.5 -Total Square (Area) (cm) 0.50 -Tunneling No -Undermining/Tunneling No -Circular Undermining No -Wound/Ulcer Outcome Not Healed -Ulcer Cleansing Rinsed/ Irrigated with Saline -Foul Odor after Cleansing No -Bioengineered Tissue No -Bleeding Controlled with Pressure -Treatment Response Procedure Tolerated Well -Offloading No -Debridement - Muscle / Fascia, 1st Yes 20sq cm Pain Scale: 0-10 Numeric Is Patient Pain Free? Yes - Nurse 3 - General Ulcer D/C NN Start: 08/01/24 08:50 Freq: Status: Active Protocol: Activity Type Activity Date Activity User E-sign Co-sign Detail Recorded Client Recorded Date Recorded By Document 08/01/24 09:31 DL [id number] 08/01/24 09:33 DL 08/01/24 09:31 Wound Care Center Nurse 3 6 rt hand post op -Foul Odor after Cleansing No -Other Dressing Xeroform -Primary Dressing Covered/Secured with Dry Gauze, Secured with Tape -Wound Comment(s) Dressing applied per Tonia Orta today Treatment Response Procedure Tolerated Well Pain Scale: 0-10 Numeric Is Patient Pain Free? 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: CODE(S): E11.628 - Type 2 diabetes mellitus with other skin complications QUALIFIERS: Diabetes mellitus complication detail: with other skin complication Diabetes mellitus buttermaker helper insulin use: without group home use Qualified Code(s): E11.628 - Type 2 diabetes mellitus with other skin complications (2) Non-pressure chronic ulcer of skin of other sites with unspecified severity: CODE(S): L98.499 - Non-pressure chronic ulcer of skin of other sites with unspecified severity (3) Dehiscence of surgical wound: CODE(S): T81.31XA - Disruption of external operation (surgical) wound, not elsewhere classified, initial encounter QUALIFIERS: Encounter type: initial encounter Qualified Code(s): T81.31XA - Disruption of external operation (surgical) wound, not elsewhere classified, initial encounter (4) Suppurative tenosynovitis of flexor tendon of right hand: CODE(S): M65.141 - Other infective (teno)synovitis, right hand (5) Failed flap: CODE(S): T86.821 - Skin graft (allograft) (autograft) failure PLAN: Plan Plan from 05 Jul 2024: I spoke with the patient extensively about smoking cessation. He is going to try to quit completely. I talked to him about moist wound care over the tendon to prevent desiccation (Xeroform twice daily and as needed). We talked about the risks to the long finger with a tendon exposure and concern for colonization of the tendon with bacteria putting the finger/hand at risk. I called the infectious disease doctor, Dr. Levin, and discussed my concerns and the phone today after this visit. We discussed the need for a chronic antibiotic course for suppression while we provide local wound care and attempt smoking cessation. He was in agreement and he will see the patient again soon. He suggested that we keep current antibiotic regimen. I also spoke to the director the wound care center, Dr. Sai Jerez, who has graciously offered to collaborate. He will see Mr. Garibay as well to attempt some local wound care to promote granulation and coverage over the tendon. Given continued failure of delayed primary closure and local flap reconstruction attempts, we should attempt smoking cessation, local wound care, and continued infectious disease consultation/antibiotics at this time. Patient in agreement with the plan. We talked during the visit as well as on the phone following the visit. He was told to call with any questions and we will arrange follow-up later this week with Dr. Jerez and again on Thursday, 11 July 2024, with me. Plan from 11 Jul 2024: Axiofill applied to the wound bed today (appreciate recommendations from Wound Senior Hris Analyst, Dr. Jerez, and will continue serial debridements in clinic and wound care products to promote granulation). 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 We will plan to re-apply Axiofill again in 1 week. Patient remains on linezolid 600 mg p.o. daily and azithromycin 500 mg p.o. daily. Discussed smoking cessation (patient now down to 2 cigarettes!). F/u with me in 1 week. Patient given strict return precautions (signs/symptoms of infection). Work up for HBO (ordered today): Echo, EKG, chest xray labs reviewed Plan from 11 Jul 2024: Referral to our cardiology team here for his echo to be expedited but also for intermittent angina work up. Following the debridement with a curette, 1 cc of the powdered Axiofill was again applied with saline over the powder. The expiration date is January 30, 2029. [id number]. [id number] Rev1. F/u in the wound care center in 1 week. Plan from 25 July 2024: Axiofill did not seem to promote any significant granulation over the past 2 weeks. Switching back to Xeroform twice daily with serial debridements. Plan for hyperbaric oxygen and continued antibiotics for chronic suppression from infectious disease. Appreciate cardiology seeing patient sooner at our request (plan for cardiology visit on Thursday, 27 July 2024, for clearance and heart health workup). Follow-up with me in 1 week at the wound care center Plan from 01 August 2024: Continue Xeroform twice daily with serial debridement in wound care center followed by hyperbaric oxygen. Continue smoking cessation and cardiac clearance for the anticipated hyperbaric oxygen therapy.
--- NOTE | 2024-08-03 13:52 | WC ---
PHOTO 08/01/24 RIGHT HAND
--- NOTE | 2024-08-08 09:54 | WC ---
This is a documentation that took place on 08/05/[address] Edwards. He explained that patient cancelled all his testing, including the echo for HBO, his cardiology appts/Dr Levin's appt and stopped his ATB's all due to cost that he can't afford and wanted to see if we could contact patient about getting in contact with the financial services at [facility] for assistance. Spoke to Soledad Bell regarding this and both her and Holly called patient at 0922. At this time, they provided to Lisandro the pianos and organs salesperson at the [facility] financial office to discuss options for him. Dr Edwards was made aware.
--- NOTE | 2024-08-08 11:58 | WC ---
August 03 2024 noted on this date that Dr Edwards wants patient to get another opinion regarding his hand and a referral needs to be made with Dr Tapia. Notified patient on cell regarding this referral before I sent it so he was aware and patient states he is not interested at this time due to cost. He is having a hard time financially making all these appts. I told him that we can discuss in further detail on Thursday08/08/[address] Edwards. He said that would be fine.
--- NOTE | 2024-08-08 12:04 | WC ---
Called and left a voicemail message with patient following up on where he is at with his ATB's and if he has heard from the financial office at [facility] since patient did cancel his wound center appt today. Patient spoke to Dr Edwards today saying his car is not running and hopes to have a vehicle next week.
[2024-08-15 14:33] VITALS: BP 143/74; PULSE 73; RESP 18; TEMP 36.3; BMI 36.9
--- NOTE | 2024-08-15 15:41 | PN.PCM_ITS ---
History of Present Illness Date of Service: 08/15/24 Chief Complaint: Septic flexor tenosynovitis of the right long finger, with residual dehiscent wound at the base of the right long finger History of Wound: Wound Care Center HPI/Summary (Dr. Jerez, 08 Jul 2024) This is a 58-year-old diabetic male smoker who presented on March 06, 2024, with acute septic tenosynovitis of the right long finger. He underwent incision and drainage of the septic right long finger tendon sheath and PIP joint, and was managed on an inpatient basis until discharge on March 15, 2024. During that hospital stay, the patient underwent 2 additional surgical procedures related to his tendon sheath infection. Since that discharge, the patient has undergone 7 additional surgical interventions, which have included sharp excision of necrotic tissue, washouts, tissue transfers, drainage of abscesses, placement of cellular tissue products, and secondary closure of surgical wounds. The most recent surgical procedure was on June 02, 2024, at which time debridement and washout of the right long finger, palm, and webspace was performed with secondary closure of surgical wounds. Integra was also placed to the index and long finger webspace. The patient's management has occurred by both inpatient and outpatient means. The patient has progressed, and all but one of his surgical incisions has healed. An open wound persists on the ulnar aspect at the base of the right long finger, near the metacarpophalangeal joint. The wound is small, and dimensions are documented elsewhere. It is approximately 2 to 3 mm in width, though it extends approximately 7 mm to exposed flexor tendon. The Infectious Disease service has been involved throughout most of the patient's management. Both Dr. Levin and Dr. Francisco have been involved in the patient's care. Though no growth has been noted in the most recent cultures on May 31, 2024, and June 02, 2024, earlier cultures were positive for acid-fast bacilli. As a result, the patient remains on linezolid 600 mg p.o. daily and azithromycin 500 mg daily. The patient is diabetic. He states that his blood sugars are typically well- controlled, ranging between 90 and 136. Diabetes management is overseen by Viola Gunderson, a Nurse Practitioner at the [facility]. The patient claims to consume a generally healthy diet, having recently excluded sugary drinks from his diet, and increasing his protein intake with the use of protein replacement drinks. The patient's serum protein was 5.8 when checked on May 31, 2024. He has been a 5-atmg-qut-day smoker for many years, but has recently reduced his smoking habit to 5 cigarettes/day. Early in the patient's course, he had been advised to perform hand soaks, using Dial soap and water, 3 times daily. However, he is not currently implementing soaks into his regimen. Current treatment involves the use of Xeroform packing changes twice daily. Subjective Subjective 05 Jul 2024: Patient postop week 4 (02 June 2024) from delayed primary closure surgical wounds of the right hand following treatment of flexor tenosynovitis (Mycobacterium abscessus infection). Patient here for wound check. Reports that infectious disease remove PICC line and placed him on oral antibiotic regimen. He was unable to attend his appointment with me last week. Reports that around this time the flexor tendon became exposed boast and 1 small area adjacent to the A1 bruce of the right long finger on the ulnar side. He has not had any fevers or chills or any purulent drainage or redness and warmth (no signs of an acute infection).Patient was unable to attend occupational therapy. Reports excellent blood sugar control. He is also been consistently decreasing his cigarette intake and smokes around 5 cigarettes now per day (discussed smoking cessation today at our visit). 11 Jul 2024: Patient doing well overall. He recently saw Dr. Sai Jerez, director of our wound care center, this past Thursday, 09 July 2024, for second opinion to help me with Mr. Garibay's care (appreciate collaboration). He recommended continued tight glucose control, improved protein intake, complete tobacco cessation, and recommended that we try a product called Axiofill (received free sample from [employer]), which would help promote granulation tissue in the wound bed. I read about the product and discussed with the patient the risks, benefits, and alternatives. He agreed to proceed with the Axiofill placement. 18 Jul 2024: No fevers or chills or hand pain. He has stopped smoking this past week (~4 days ago was last cigarette). Patient also reports intermittent chest pain symptoms, not related to exertion, that feel retrosternal and are not improved/worsened when he touches the area. He has not seen or been re-linked with a body and fender mechanic for several years. He has a PCP appointment in July. Has not had a recent stress test. Patient undergoing the testing for HBO currently. Recent EEG demonstrated NSR with RBBB. 26 Jul 2024: Doing well overall. No episodes of angina this past week. We have referred him to a body and fender mechanic at [facility] and he is seeing them on 27 July 2024 (this Thursday) for both workup and reestablishment regarding cardiac concerns, as well as for an echocardiogram in anticipation of HBO clearance. Patient does not report any fevers or chills or any pain in the hand. Reports better range of motion. Continues to not smoke (over a week and a half now). He continues on antibiotics from infectious disease. He continues to get weekly labs and follow-up with them. 01 August 2024: Patient has been off cigarettes for 2 weeks now. He reports continued improvement in range of motion, and is following up with infectious disease this Thursday, 03 August 2024. He continues on chronic suppressive antibiotics. Patient has an echocardiogram scheduled and also has a stress test scheduled as he saw our body and fender mechanic last week for evaluation in the setting of his chest pain episodes and need for clearance for hyperbaric oxygen therapy. Patient continues to do twice daily Xeroform and is keeping the tendon and wound moist. CURRENT ENCOUNTER, 15 August 2024: Patient unable to come to his appointment last week. He also was unable to go to his echocardiogram or stress test. We have talked to the hospital financial services associate team and social work team who has reached out to him. He unfortunately makes too much money to qualify for the services. He reports that on Thursday, 10 August 2024, he all of a sudden was unable to bend his long finger. No fevers or chills. Reports slight drainage and bleeding from the wound. He reports that he continues to be off of the cigarettes (now nearly 4 weeks). Objective Data Objective Data Vital Signs: Vital Signs Temp Pulse Resp BP O2 Del Method 97.4 F L 73 18 143/74 H Room Air 08/15/24 14:33 08/15/24 14:33 08/15/24 14:33 08/15/24 14:33 08/01/24 08:50 Oxygen Delivery Method Room Air Weight: 250 lb Body Mass Index (BMI) 36.9 Charges/Coding Procedures Integumentary 111xxx-113xx: [id number] Global Visit Physical Exam Narrative RUE: No drainage or induration. Frayed tendon at the distal and proximal ends of the volar long finger wound. Wound is 2 x 0.3 cm And it is 0.5 cm deep It has better granulation tissue than it has in the past Motor: Good overall hammer adjuster strength. Able to oppose the small finger to the thumb. Long finger ROM: * 45 degrees MP * 0 degrees PIP * 0 degrees DIP Small finger ROM * 65 degrees MP * 65 degrees PIP * 45 degrees DIP Sensation: Intact to light touch on the radial and ulnar borders of all fingers. Const alert and oriented x3 Debridement Note Debridement Note Wound debrided: Volar long finger wound Laterality: Right Wound Grade/Stage: 3 Type of Debridement: Excisional debridement Anesthesia Used: 4% Lidocaine Solution and - (For cc of 1% lidocaine) Depth: to muscle (To the fascia and tendon (tendon was debrided from the base of the wound) ) Percentage of wound debrided: 100 Instrument Used: 7mm curette, Forceps and - (15 blade and is sharp scissors) Tissue Removed: To the fascia and tendon (tendon was debrided from the base of the wound) Severity: Necrosis of Muscle (Necrosis to the tendon) Amount of bleeding with debridement: Mild Bleeding Controlled with: Compression and gauze Patient tolerated procedure: Patient tolerated procedure well Debridement Free Text: Tendon at the base of the wound was frayed and necrotic and excised A piece of the tendon was cultured Post-Debridement Measurements and Additional Note: Post-Debridement Measurements/Treatment - Nurse 1 - General Ulcer Assessment Start: 08/01/24 08:50 Freq: Status: Active Protocol: WAYLON Activity Type Activity Date Activity User E-sign Co-sign Detail Recorded Client Recorded Date Recorded By Document 08/01/24 08:50 [facility] [id number] 08/01/24 08:54 BMF Document 08/15/24 14:33 DL [id number] 08/15/24 14:38 DL 08/01/24 08/15/24 08:50 14:33 - Today's Visit Information Type of service Follow-up Visit Follow-up Visit (Physician/BEAVER TRAPPER (Physician/BEAVER TRAPPER ) ) Arrival Mode Ambulatory Ambulatory Transfer Assistance None None Patient Identification Verified (Name & Yes Yes ) Patient Requires Transmission-Based No No Precautions Height and Weight Body Mass Index (BMI) 36.9 36.9 BMI Classification Obese Obese Vital Signs Temperature (97.8 F-99.1 F) 97.4 F L 97.4 F L Temperature Source Temporal Temporal Pulse Rate (60-100) 67 73 Pulse Location Monitor Monitor Respiratory Rate (12-18) 16 18 Respiratory rate source Observation Observation Oxygen Delivery Method Room Air Blood Pressure (90/60-120/80) 132/76 H 143/74 H Blood Pressure Mean (mm Hg) 94 97 Source Monitor Monitor Position Sitting Blood Pressure Location Right Arm History Since Last Visit- (Skip if this is Patient's initial visit) Have you changed medications since your No No last visit? Any new allergies or adverse reactions No No Had a fall/change in ADL's that may No No increase risk of falls Signs or symptoms of abuse and/or No No neglect since last visit Have you been in the hospital since your No No last visit? Has dressing in place as prescribed Yes Yes Has compression in place as prescribed N/A N/A Has offloadiing in place as prescribed N/A N/A Experienced any changes in pain level or No No management Left Footwear Regular Shoe Right Footwear Regular Shoe Pain Scale: 0-10 Numeric Is Patient Pain Free? Yes Yes WC - Nurse 1 - General Ulcer Measurement Start: 08/01/24 08:50 Freq: Status: Active Protocol: Activity Type Activity Date Activity User E-sign Co-sign Detail Recorded Client Recorded Date Recorded By Document 08/01/24 08:50 [facility] [id number] 08/01/24 08:54 [facility] Document 08/15/24 14:33 DL [id number] 08/15/24 14:38 DL 08/01/24 08/15/24 08:50 14:33 Wound Center Nurse 1 6 rt hand post op -Combined with other wound No -Current Size (cm) - Length 1.1 1.3 -Current Size (cm) - Width 0.4 0.3 -Current Size (cm) - Depth 0.1 0.2 -Total Square Cm 0.44 0.39 -Date of Last Picture (Recall this 08/01/24 field) -Photo Taken Yes Yes -Epithelialization Small 1-33% -Tunneling No -Tunneling Position (O'clock) 6 -Tunneling Distance (cm) 0.4 -Undermining/Tunneling No -Circular Undermining No -Exudate Amt Small Medium -Exudate Type Serous Serosanguineous -Wound Margin Distinct, Distinct, Outline Outline Attached Attached -Granulation Amt Small (1-33%) Large (67-100%) -Granulation Quality Red Morea -Necrosis Amt Small (1-33%) -Necrotic Tissue Type Adherent Slough -Structure Exposed Tendon Tendon -Texture (Carolyn-wound Skin Appearance) Assessed Scarring -Moisture (Carolyn-wound Skin Appearance) Assessed Maceration -Color (Carolyn-wound Skin Appearance) Assessed No Abnormality -Temperature (Carolyn-wound Skin No Abnormality No Abnormality Appearance) (Pt Warm) (Pt Warm) -Tenderness on Palpation (Carolyn-wound No Skin Appearance) -Ulcer Cleansing Rinsed/ Rinsed/ Irrigated with Irrigated with Saline Saline -Foul Odor after Cleansing No No -Anesthetic Used 5% Lidocaine 4% Lidocaine Gel Solution -Wound Comment(s) majority of wound is the exposed tendon WC - Nurse 2 - General Ulcer CM Notes Start: 08/01/24 08:50 Freq: Status: Active Protocol: Activity Type Activity Date Activity User E-sign Co-sign Detail Recorded Client Recorded Date Recorded By Document 08/01/24 09:14 DS [id number] 08/01/24 09:21 DS Document 08/15/24 14:52 JF [id number] 08/15/24 15:06 08/01/24 08/15/24 09:14 14:52 Wound Center Nurse 2 6 rt hand post op -Time 09:14 15:03 -Correct Patient Yes Yes -Correct Side, Site, Position Yes Yes -Correct Procedure Yes Yes -Procedure Performed Yes Yes -Type of Procedure Debridement Debridement -Clinical Debridement Muscle / Fascia Muscle / Fascia -Tissue Removed Fascia Tendon -Post Debridement (cm) - Length 1.0 2.0 -Post Debridement (cm) - Width 0.5 0.3 -Post Debridement (cm) - Depth 0.3 0.5 -Total Square (Post) (cm) 0.50 0.60 -Area of Debridement (cm) - Length 1.0 2.0 -Area of Debridement (cm) - Width 0.5 0.3 -Total Square (Area) (cm) 0.50 0.60 -Tunneling No No -Undermining/Tunneling No No -Circular Undermining No No -Wound/Ulcer Outcome Not Healed Not Healed -Ulcer Cleansing Rinsed/ Rinsed/ Irrigated with Irrigated with Saline Saline -Foul Odor after Cleansing No No -Bioengineered Tissue No No -Bleeding Controlled with Pressure Pressure -Treatment Response Procedure Procedure Tolerated Well Tolerated Well -Offloading No No -Debridement - Muscle / Fascia, 1st Yes Yes 20sq cm Pain Scale: 0-10 Numeric Is Patient Pain Free? Yes Yes WC - Nurse 3 - General Ulcer D/C NN Start: 08/01/24 08:50 Freq: Status: Active Protocol: Activity Type Activity Date Activity User E-sign Co-sign Detail Recorded Client Recorded Date Recorded By Document 08/01/24 09:31 DL [id number] 08/01/24 09:33 DL Document 08/15/24 15:16 KW [id number] 08/15/24 15:17 KW 08/01/24 08/15/24 09:31 15:16 Wound Care Center Nurse 3 6 rt hand post op -Foul Odor after Cleansing No -Primary Dressing Applied Promogran Pepper Matter -Other Dressing Xeroform -Primary Dressing Covered/Secured with Dry Gauze, Dry Gauze, Secured with Secured with Tape Tape -Promogran Pepper Matter 2 -Wound Comment(s) Dressing applied per Tonia Orta today Treatment Response Procedure Tolerated Well Pain Scale: 0-10 Numeric Is Patient Pain Free? 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: CODE(S): E11.628 - Type 2 diabetes mellitus with other skin complications QUALIFIERS: Diabetes mellitus nursing home insulin use: without long term care pharmacist use Diabetes mellitus complication detail: with other skin complication Q ualified Code(s): E11.628 - Type 2 diabetes mellitus with other skin complications (2) Non-pressure chronic ulcer of skin of other sites with unspecified severity: CODE(S): L98.499 - Non-pressure chronic ulcer of skin of other sites with unspecified severity (3) Dehiscence of surgical wound: CODE(S): T81.31XA - Disruption of external operation (surgical) wound, not elsewhere classified, initial encounter QUALIFIERS: Encounter type: initial encounter Qualified Code(s): T81.31XA - Disruption of external operation (surgical) wound, not elsewhere classified, initial encounter (4) Suppurative tenosynovitis of flexor tendon of right hand: CODE(S): M65.141 - Other infective (teno)synovitis, right hand (5) Failed flap: CODE(S): T86.821 - Skin graft (allograft) (autograft) failure PLAN: Plan Plan from 05 Jul 2024: I spoke with the patient extensively about smoking cessation. He is going to try to quit completely. I talked to him about moist wound care over the tendon to prevent desiccation (Xeroform twice daily and as needed). We talked about the risks to the long finger with a tendon exposure and concern for colonization of the tendon with bacteria putting the finger/hand at risk. I called the infectious disease doctor, Dr. Levin, and discussed my concerns and the phone today after this visit. We discussed the need for a chronic antibiotic course for suppression while we provide local wound care and attempt smoking cessation. He was in agreement and he will see the patient again soon. He suggested that we keep current antibiotic regimen. I also spoke to the director the wound care center, Dr. Sai Jerez, who has graciously offered to collaborate. He will see Mr. Garibay as well to attempt some local wound care to promote granulation and coverage over the tendon. Given continued failure of delayed primary closure and local flap reconstruction attempts, we should attempt smoking cessation, local wound care, and continued infectious disease consultation/antibiotics at this time. Patient in agreement with the plan. We talked during the visit as well as on the phone following the visit. He was told to call with any questions and we will arrange follow-up later this week with Dr. Jerez and again on Thursday, 11 July 2024, with me. Plan from 11 Jul 2024: Axiofill applied to the wound bed today (appreciate recommendations from Wound Ink Grinder, Dr. Jerez, and will continue serial debridements in clinic and wound care products to promote granulation). 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 We will plan to re-apply Axiofill again in 1 week. Patient remains on linezolid 600 mg p.o. daily and azithromycin 500 mg p.o. daily. Discussed smoking cessation (patient now down to 2 cigarettes!). F/u with me in 1 week. Patient given strict return precautions (signs/symptoms of infection). Work up for HBO (ordered today): Echo, EKG, chest xray labs reviewed Plan from 11 Jul 2024: Referral to our cardiology team here for his echo to be expedited but also for intermittent angina work up. Following the debridement with a curette, 1 cc of the powdered Axiofill was again applied with saline over the powder. The expiration date is January 30, 2029. [id number]. [id number] Rev1. F/u in the wound care center in 1 week. Plan from 25 July 2024: Axiofill did not seem to promote any significant granulation over the past 2 weeks. Switching back to Xeroform twice daily with serial debridements. Plan for hyperbaric oxygen and continued antibiotics for chronic suppression from infectious disease. Appreciate cardiology seeing patient sooner at our request (plan for cardiology visit on Thursday, 27 July 2024, for clearance and heart health workup). Follow-up with me in 1 week at the wound care center Plan from 01 August 2024: Continue Xeroform twice daily with serial debridement in wound care center followed by hyperbaric oxygen. Continue smoking cessation and cardiac clearance for the anticipated hyperbaric oxygen therapy. Plan from 15 August 2024: Flexor tendons have spontaneously ruptured in the wound bed. Patient unable to follow-up with us last week, and is also been unable to follow-up with infectious disease. We are contacting them about a cheaper antibiotic regimen as a potential alternative for the patient as he is running out of his linezolid and azithromycin and is not qualifying for the financial assistance program at our hospital. I talked to him about why I think primary repair of the flexor tendon in the setting of a wound with frayed and likely colonized tendon edges there is a bad idea. The patient agreed with this plan and did not want tendon reconstruction today (as I counseled him that this would not work). We will defer tendon repair at this point (see debridement note above). We talked about options for tendon reconstruction once he heals, which may be a possibility, but may also be unrealistic given that he has been unable to attend any hand therapy visits secondary to financial and time restrictions (occupational therapy has been offered several times). Plan for Pepper Promogran (silver and collagen) dressing daily to the wound bed to promote granulation and keep the wound moist. We are coordinating with infectious disease follow-up for antibiotics. Plan to see us in 1 week in the wound care center. I recommended that he keep his appointments with cardiology and go to the stress test (needs to reschedule this and the echocardiogram). We will have to defer hyperbarics at this time as he has not been able to go to the echocardiogram or stress test which was part of the clearance. I talked him about strict return precautions with regards to infection. Follow-up wound care cultures from today. Ordered nutrition labs today
== END 2024-08-29 23:59 | disposition home or self-care (01) ==
LOC: WC 14:30
PROVIDERS: PCP Nurse Practitioner Family; Referring Provider Internal Medicine Infectious Disease; Visit Provider Surgery Plastic and Reconstructive Surgery
DX: E11.628 Type 2 diabetes mellitus with other skin complications (principal); L98.499 Non-pressure chronic ulcer of skin of other sites with unspecified severity; Z79.2 Long term (current) use of antibiotics; M65.941 Unspecified synovitis and tenosynovitis, right hand; F17.210 Nicotine dependence, cigarettes, uncomplicated; T81.31XA Disruption of external operation (surgical) wound, not elsewhere classified, initial encounter; M65.141 Other infective (teno)synovitis, right hand; T86.821 Skin graft (allograft) (autograft) failure
CPT/HCPCS: 11043; 87070; 87075; 87205

== ENCOUNTER → 2024-11-23 | Outpatient (CLI) | payer MEDICAID, SELFPAY ==
[2024-11-23 11:08] LABS: Absolute Lymphocyte Count 2.25 X10^3/uL (0.83-4.51); Absolute Neutrophil Count 3.1 X10^3/uL (2.0-7.7); Basophil# 0.04 X10^3/uL; Basophil% 0.7 % (0-1); Eosinophil# 0.17 X10^3/uL; Eosinophils% 2.8 % (0-5); Hematocrit 45.9 % (40-54); Hemoglobin 15.9 g/dL (13.0-16.5); Lymphocyte # 2.25 X10^3/ul (0.83-4.51); Lymphocyte % 37.7 % (19-41); Mean Corp Hgb Conc 34.6 g/dL (32-36); Mean Corpuscular Hgb 33.7 pg (27.0-32.0); Mean Corpuscular Volume 97.2 fL (80-94); Mean Platelet Vol. 11.2 fl (6.2-12.0); Monocyte# 0.45 X10^3/uL; Monocyte% 7.5 % (0-10); NRBC Flagged by Analyzer 0 % (0-5); Neutrophil # 3.05 X10^3/uL (2.7-7.7); Neutrophil % 51.1 % (47-70); Platelet Count 128 K/mm3 (150-450); RBC Distribution Width CV 13.4 % (11.6-14.6); RBC Distribution Width SD 48.4 fl (35.1-43.9); Red Blood Count 4.72 M/mm3 (4.6-6.2)
[2024-11-23 11:28] LABS: Microalbumin,Random Urine < 12.0 mg/L (NO RANGE EST.)
[2024-11-23 11:35] LABS: ALB/GLOB Ratio 1.7 RATIO (0.9-2.4); AST(SGOT) 56 U/L (<=37); Alanine Aminotransfer ALT/SGPT 83 U/L (<=46); Albumin, Serum 4.3 g/dL (3.5-5.0); Alkaline Phosphatase 83 U/L (40-129); Anion Gap 11 (5-15); BUN 11 mg/dL (4-19); Calcium,Total 9.1 mg/dL (7.6-11.0); Carbon Dioxide 24.1 mmol/L (21.0-32.0); Chloride 105 mmol/L (98-108); Cholesterol 110 mg/dL (<=200); Creatinine, Serum 0.89 mg/dL (0.70-1.20); EST Glomerular Filtration Rate 100 (>60); Globulin 2.5 g/dL (2.2-4.2); Glucose 157 mg/dL (70-99); High Density Lipoprotein 39 mg/dL; Low Density Lipoprotein Calc. 28 mg/dL; Potassium 4.2 mmol/L (3.3-5.1); Protein, Total 6.8 g/dL (5.9-8.4); Sodium Level 140 mmol/L (133-145); Total Bilirubin 0.41 mg/dL (0.00-1.30); Triglycerides 216 mg/dL; Very Low Density Lipoprotein 43 mg/dL (5-40); cholesterol:hdl ratio screen 2.85
[2024-11-23 11:36] LABS: PSA,Total - Annual Screen 0.29 ng/mL (0.02-4.00)
== END | disposition home or self-care (01) ==
LOC: VSLAB 08:50
PROVIDERS: PCP Nurse Practitioner Family; Visit Provider Nurse Practitioner Family
DX: Z12.5 Encounter for screening for malignant neoplasm of prostate (principal); E11.42 Type 2 diabetes mellitus with diabetic polyneuropathy; E03.9 Hypothyroidism, unspecified; E78.5 Hyperlipidemia, unspecified
CPT/HCPCS: 36415; 80053; 80061; 82043; 84153; 84443; 85025; G0103